=== PATIENT | female | born 1950 | race African-American/Black ===

== ENCOUNTER 2016-12-17 09:42 | Inpatient (IN) | payer MEDICARE, MEDICAID ==
[~2016-12-17] VITALS: Ht 165.1 cm; Wt 88.0 kg
[~2016-12-17 09:42] MED LIST: COZA100T PO; FERR324T4 PO; FLUD.1 PO; FURO20TA PO; GLUC10TA3 PO; INSULIN; ISOP1SOL2 LEFT EYE; LANTUSP SQ; METHO500 PO; NEBI20 PO; NORV5TAB PO; OXYC5 PO; VITA400C58 PO
[2016-12-17 09:43] VITALS: BP 176/88; PULSE 106; RESP 24; TEMP 99; O2SAT 98
[2016-12-17] MEDS ORDERED: AMLO10TA2 PO (09:57)
[2016-12-17] MEDS ORDERED: GLIP10TA6 PO (09:57)
[2016-12-17] MEDS ORDERED: D31000CA (09:57)
[2016-12-17] MEDS ORDERED: OXYC-392 PO (09:58)
[2016-12-17] MEDS ORDERED: SODIUM CHLOR 0.9% 1000 ML INJ 1,000 ML IV ONE (10:15)
[2016-12-17] MEDS ORDERED: RESP: ALBUTEROL 2.5 MG/IPRATROPIUM 0.5 MG NEB (SCH) INH ONE (10:15)
--- NOTE | 2016-12-17 10:28 | PD ---
HPI Chief Complaint: Respiratory Symptoms Time Seen by Provider: 10:08 Travel History International Travel<30 days: No Contact w/Intl Traveler<30days: No Traveled to known affect area: No History of Present Illness HPI Patient is a 66-year-old female who presents to emergency room with multiple complaints. She reports that she has had a nonproductive, dry cough for the past month. patient reports that she hasbeen coughing so much, it takes her breath away. Patient reports shortness of breath with her coughing fits, also reports that she has had a runny nose, postnasal drip. patient reports that she has tried [id number] medications for symptoms with no relief. Patient reports that she felt a little dizzy and nauseous this morning, that she decided to come to the emergency room after she had her breakfast at [employer] which she was able to eat without any difficultly. She does admit that for the past few days, she has been having a sore throat.patient denies any sick contacts, denies any recent travels or trips. Patient denies any chest pain at this time. PFSH Past Medical History Diabetes: Yes Patient Takes Glucophage: No Hypertension: Yes Tetanus Vaccination: > 5 Years Influenza Vaccination: Yes ?: Not Past Surgical History Abdominal Surgery: No Hysterectomy: No Social History Alcohol Use: No Tobacco Use: No Substance Use: No Allergies-Medications (Allergen,Severity, Reaction): Coded Allergies: No Known Allergies (Unverified , 12/17/16) Reported Meds & Prescriptions Reported Meds & Active Scripts Active Reported Oxycodone (Oxycodone HCl) 5 Mg Tab 5 Mg PO Q6H PRN D3 (Cholecalciferol) 1,000 Unit Cap Amlodipine (Amlodipine Besylate) 10 Mg Tab 10 Mg PO DAILY Glipizide 10 Mg Tab 10 Mg PO BIDAC Take 30 minutes before a meal Review of Systems General / Constitutional: Positive: Chills, No: Fever Eyes: No: Visual changes HENT: Positive: Sore Throat, No: Neck Pain Cardiovascular: No: Chest Pain or Discomfort Respiratory: Positive: Cough, Shortness of Breath, No: Wheezing Gastrointestinal: No: Nausea, Vomiting, Diarrhea Genitourinary: No: Dysuria Musculoskeletal: No: Pain Skin: No Rash Neurologic: Positive: Weakness, Dizziness Psychiatric: No: Depression Endocrine: No: Polydipsia Hematologic/Lymphatic: No: Easy Bruising Physical Exam Narrative GENERAL: nontoxic, no acute distress SKIN: Focused skin assessment warm/dry. HEAD: Atraumatic. Normocephalic. EYES: Pupils equal and round. No scleral icterus. No injection or drainage. ENT: No nasal bleeding or discharge. Mucous membranes pink and moist. NECK: Trachea midline. No JVD. CARDIOVASCULAR: Regular rate and rhythm. No murmur appreciated. RESPIRATORY: No accessory muscle use. Clear to auscultation. Breath sounds equal bilaterally. GASTROINTESTINAL: Abdomen soft, non-tender, nondistended. Hepatic and splenic margins not palpable. MUSCULOSKELETAL: No obvious deformities. No clubbing. No cyanosis. No edema. NEUROLOGICAL: Awake and alert. No obvious cranial nerve deficits. Motor grossly within normal limits. Normal speech. PSYCHIATRIC: Appropriate mood and affect; insight and judgment normal. Data Data Last Documented VS Vital Signs Date Time Temp Pulse Resp B/P Pulse Ox O2 Delivery O2 Flow Rate FiO2 12/17/16 10:45 92 16 173/83 97 Room Air 12/17/16 09:43 99.0 Orders Electrocardiogram (12/17/16 10:14) Complete Blood Count With Diff (12/17/16 10:14) Comprehensive Metabolic Panel (12/17/16 10:14) Prothrombin Time / Inr (Pt) (12/17/16 10:14) Act Partial Throm Time (Ptt) (12/17/16 10:14) Lactic Acid Sepsis Protocol (12/17/16 10:14) Magnesium (Mg) (12/17/16 10:14) Urinalysis - C+S If Indicated (12/17/16 10:14) Blood Culture (12/17/16 10:14) Chest, Single Ap (12/17/16 10:14) Sodium Chlor 0.9% 1000 Ml Inj (Ns 1000 M (12/17/16 10:15) Bedside Glucose BHARAT.AC&HS (12/17/16 10:14) Ecg Monitoring (12/17/16 10:14) Iv Access Insert/Monitor (12/17/16 10:14) Oximetry (12/17/16 10:14) Albuterol-Ipratropium Neb (Duoneb Neb) (12/17/16 10:15) Group A Rapid Strep Screen (12/17/16 10:20) Strep Culture (Group A) (12/17/16 10:25) Ceftriaxone Inj (Rocephin Inj) (12/17/16 12:00) Azithromycin Inj (Zithromax Inj) (12/17/16 12:00) Labs Laboratory Tests Test 12/17/16 12/17/16 10:30 10:40 White Blood Count 8.8 TH/MM3 Red Blood Count 4.58 MIL/MM3 Hemoglobin 9.2 GM/DL Hematocrit 30.4 % Mean Corpuscular Volume 66.4 FL Mean Corpuscular Hemoglobin 20.1 PG Mean Corpuscular Hemoglobin 30.2 % Concent Red Cell Distribution Width 16.3 % Platelet Count 223 TH/MM3 Mean Platelet Volume 9.3 FL Neutrophils (%) (Auto) 77.0 % Lymphocytes (%) (Auto) 14.5 % Monocytes (%) (Auto) 7.2 % Eosinophils (%) (Auto) 1.1 % Basophils (%) (Auto) 0.2 % Neutrophils # (Auto) 6.8 TH/MM3 Lymphocytes # (Auto) 1.3 TH/MM3 Monocytes # (Auto) 0.6 TH/MM3 Eosinophils # (Auto) 0.1 TH/MM3 Basophils # (Auto) 0.0 TH/MM3 CBC Comment DIFF FINAL Differential Comment Prothrombin Time 10.3 SEC Prothromb Time International 0.9 RATIO Ratio Activated Partial 26.4 SEC Thromboplast Time Sodium Level 142 MEQ/L Potassium Level 5.5 MEQ/L Chloride Level 113 MEQ/L Carbon Dioxide Level 21.7 MEQ/L Anion Gap 7 MEQ/L Blood Urea Nitrogen 36 MG/DL Creatinine 3.22 MG/DL Estimat Glomerular Filtration 18 ML/MIN Rate Random Glucose 184 MG/DL Lactic Acid Level 1.1 mmol/L Calcium Level 8.1 MG/DL Magnesium Level 2.4 MG/DL Total Bilirubin 0.3 MG/DL Aspartate Amino Transf 20 U/L (AST/SGOT) Alanine Aminotransferase 29 U/L (ALT/SGPT) Alkaline Phosphatase 118 U/L Total Protein 8.1 GM/DL Albumin 3.3 GM/DL Urine Color LIGHT-YELLOW Urine Turbidity CLEAR Urine pH 5.5 Urine Specific [place] 1.011 Urine Protein 30 mg/dL Urine Glucose (UA) NEG mg/dL Urine Ketones NEG mg/dL Urine Occult Blood SMALL Urine Nitrite NEG Urine Bilirubin NEG Urine Urobilinogen LESS THAN 2.0 MG/DL Urine Leukocyte Esterase NEG Urine RBC 1 /hpf Urine WBC LESS THAN 1 /hpf Urine Squamous Epithelial 1 /hpf Cells Microscopic Urinalysis Comment CULT NOT INDICATED MDM Medical Decision Making Medical Screen Exam Complete: Yes Emergency Medical Condition: Yes Interpretation(s) Vital Signs Date Time Temp Pulse Resp B/P Pulse Ox O2 Delivery O2 Flow Rate FiO2 12/17/16 09:59 90 15 97 Room Air 12/17/16 09:43 99.0 106 24 176/88 98 Room Air Differential Diagnosis Viral syndrome, pneumonia, electrolyte abnormality, pneumothorax, PE though unlikely Narrative Course Patient is a 66-year-old female who presents to emergency room with complaints of shortness of breath with cough, congestion and runny nose for the past month. Patient has tried using [id number] medications with no relief of symptoms. Patient with no fevers or chills, she was tachycardic with increased respiratory rate upon arrival to the emergency room. Patient does meet SIRS criteria, sepsis labs were drawn. IVF ordered. Patient does not have any abdominal pain this time, not have any sensation of throat closing, she complains of sore throat. Lab work drawn including LFTs. Will hydrate patient and monitor youth nutritional monitor. Laboratory Tests Test 12/17/16 12/17/16 10:30 10:40 White Blood Count 8.8 TH/MM3 (4.0-11.0) Red Blood Count 4.58 MIL/MM3 (4.00-5.30) Hemoglobin 9.2 GM/DL (11.6-15.3) Hematocrit 30.4 % (35.0-46.0) Mean Corpuscular Volume 66.4 FL (80.0-100.0) Mean Corpuscular Hemoglobin 20.1 PG (27.0-34.0) Mean Corpuscular Hemoglobin 30.2 % Concent (32.0-36.0) Red Cell Distribution Width 16.3 % (11.6-17.2) Platelet Count 223 TH/MM3 (150-450) Mean Platelet Volume 9.3 FL (7.0-11.0) Neutrophils (%) (Auto) 77.0 % (16.0-70.0) Lymphocytes (%) (Auto) 14.5 % (9.0-44.0) Monocytes (%) (Auto) 7.2 % (0.0-8.0) Eosinophils (%) (Auto) 1.1 % (0.0-4.0) Basophils (%) (Auto) 0.2 % (0.0-2.0) Neutrophils # (Auto) 6.8 TH/MM3 (1.8-7.7) Lymphocytes # (Auto) 1.3 TH/MM3 (1.0-4.8) Monocytes # (Auto) 0.6 TH/MM3 (0-0.9) Eosinophils # (Auto) 0.1 TH/MM3 (0-0.4) Basophils # (Auto) 0.0 TH/MM3 (0-0.2) CBC Comment DIFF FINAL Differential Comment Prothrombin Time 10.3 SEC (9.8-11.6) Prothromb Time International 0.9 RATIO Ratio Activated Partial 26.4 SEC Thromboplast Time (24.3-30.1) Sodium Level 142 MEQ/L (136-145) Potassium Level 5.5 MEQ/L (3.5-5.1) Chloride Level 113 MEQ/L (98-107) Carbon Dioxide Level 21.7 MEQ/L (21.0-32.0) Anion Gap 7 MEQ/L (5-15) Blood Urea Nitrogen 36 MG/DL (7-18) Creatinine 3.22 MG/DL (0.50-1.00) Estimat Glomerular Filtration 18 ML/MIN (>89) Rate Random Glucose 184 MG/DL (74-106) Lactic Acid Level 1.1 mmol/L (0.4-2.0) Calcium Level 8.1 MG/DL (8.5-10.1) Magnesium Level 2.4 MG/DL (1.5-2.5) Total Bilirubin 0.3 MG/DL (0.2-1.0) Aspartate Amino Transf 20 U/L (15-37) (AST/SGOT) Alanine Aminotransferase 29 U/L (10-53) (ALT/SGPT) Alkaline Phosphatase 118 U/L (45-117) Total Protein 8.1 GM/DL (6.4-8.2) Albumin 3.3 GM/DL (3.4-5.0) Urine Color LIGHT-YELLOW (YELLW/STRAW) Urine Turbidity CLEAR (CLEAR) Urine pH 5.5 (5.0-8.5) Urine Specific [place] 1.011 (1.002-1.035) Urine Protein 30 mg/dL (NEG-TRACE) Urine Glucose (UA) NEG mg/dL (NEG) Urine Ketones NEG mg/dL (NEG) Urine Occult Blood SMALL (NEG) Urine Nitrite NEG (NEG) Urine Bilirubin NEG (NEG) Urine Urobilinogen LESS THAN 2.0 MG/DL (LESS THAN 2.0) Urine Leukocyte Esterase NEG (NEG) Urine RBC 1 /hpf (0-3) Urine WBC LESS THAN 1 /hpf (0-5) Urine Squamous Epithelial 1 /hpf (0-5) Cells Microscopic Urinalysis Comment CULT NOT INDICATED Last Impressions Chest X-Ray 12/17/16 1014 Signed Impressions: Service Date/Time: Saturday, December 17, 2016 10:58 - CONCLUSION: No acute disease. Elio Phillips MD FACR Cr 3.12 which is elevated from baseline, last cr was from 2012 and was 1.49 patient with most likely bronchitis with dry cough for 1 month - will treat with antibiotics Diagnosis Primary Impression: Renal insufficiency Additional Impression: Bronchitis Admitting Information Admitting Physician Requests: Observation Fatmata Ewing DO December 17, 2016 10:27
[2016-12-17 10:45] VITALS: BP 173/83; PULSE 92; RESP 16; O2SAT 97
[2016-12-17 11:04] LABS: AUTOMATED NEUTROPHIL # 6.8 TH/MM3 (1.8-7.7); BASOPHIL % 0.2 % (0.0-2.0); EOSINOPHIL # 0.1 TH/MM3 (0-0.4); EOSINOPHIL % 1.1 % (0.0-4.0); HEMATOCRIT 30.4 % (35.0-46.0); HEMO FLAGS DIFF FINAL; LYMPH % 14.5 % (9.0-44.0); LYMPHOCYTE # 1.3 TH/MM3 (1.0-4.8); MEAN CELL VOLUME 66.4 FL (80.0-100.0); MEAN CORPUSCULAR HEMOGLOBIN 20.1 PG (27.0-34.0); MEAN CORPUSCULAR HGB CONC 30.2 % (32.0-36.0); MONO % 7.2 % (0.0-8.0); PLATELET COUNT 223 TH/MM3 (150-450); RED BLOOD COUNT 4.58 MIL/MM3 (4.00-5.30); RED CELL DISTRIBUTION WIDTH 16.3 % (11.6-17.2); WHITE BLOOD COUNT 8.8 TH/MM3 (4.0-11.0)
[2016-12-17 11:13] LABS: APTT (PATIENT) 26.4 SEC (24.3-30.1); INTERNATIONAL NORMALIZED RATIO 0.9 RATIO; PROTHROMBIN TIME - PATIENT 10.3 SEC (9.8-11.6)
[2016-12-17 11:17] LABS: ANION GAP 7 MEQ/L (5-15); BICARBONATE 21.7 MEQ/L (21.0-32.0); BLOOD UREA NITROGEN 36 MG/DL (7-18); CHLORIDE 113 MEQ/L (98-107); MAGNESIUM 2.4 MG/DL (1.5-2.5); POTASSIUM 5.5 MEQ/L (3.5-5.1); SODIUM (NA) 142 MEQ/L (136-145)
[2016-12-17 11:30] LABS: ALKALINE PHOSPHATASE 118 U/L (45-117); AST (GOT) 20 U/L (15-37); GLOMERULAR FILTRATION RATE 18 ML/MIN (>89); TOTAL BILIRUBIN ADULT 0.3 MG/DL (0.2-1.0)
[2016-12-17 11:33] LABS: ALT (GPT) 29 U/L (10-53)
--- NOTE | 2016-12-17 11:35 | RADRPT ---
EXAM DATE/TIME: 12/17/2016 10:58 [facility] COMPARISON: No previous studies available for comparison. INDICATIONS : Short of breath, cough. MEDICAL HISTORY : None. SURGICAL HISTORY : None. ENCOUNTER: Initial ACUITY: 1 month PAIN SCORE: 0/10 LOCATION: Bilateral chest FINDINGS: A single view of the chest demonstrates the lungs to be symmetrically aerated without evidence of mas s, infiltrate or effusion. The cardiomediastinal contours are unremarkable. Osseous structures are intact. CONCLUSION: No acute disease. Elio Phillips MD FACR on December 17, 2016 at 11:33 Board Certified Radiologist. This report was verified electronically.
[2016-12-17 11:41] LABS: BLOOD, URINE SMALL (NEG); COMMENT (UR) CULT NOT INDICATED; CULTURE IF INDICATED CULT NOT INDICATED; GLUCOSE,URINE NEG (NEG); KETONE, URINE NEG (NEG); NITRITE,URINE NEG (NEG); PH, URINE 5.5 (5.0-8.5); SQUAMOUS EPITHELIAL CELL URINE 1 /hpf (0-5); URINE COLOR LIGHT-YELLOW (YELLW/STRAW)
[2016-12-17] MEDS ORDERED: AZITHROMYCIN INJ 500 MG in SODIUM CHLOR 0.9% 250 ML INJ 250 ML IV ONE (12:00)
[2016-12-17] MEDS ORDERED: cefTRIAXone INJ 1,000 MG in SODIUM CHLORIDE 0.9% INJ 100 ML IV ONE (12:00)
[2016-12-17] MEDS ORDERED: BISACODYL 10 MG SUPP RECTAL PRN (12:45)
[2016-12-17] MEDS ORDERED: SENNOSIDES 8.6 MG TAB PO PRN (12:45)
[2016-12-17] MEDS ORDERED: SODIUM CHLORIDE 0.9% FLUSH 10 ML FLUSH IV FLUSH PRN (12:45)
[2016-12-17] MEDS ORDERED: ONDANSETRON HCL 4 MG/2 ML VIAL IVP PRN (12:45)
[2016-12-17] MEDS ORDERED: LACTULOSE SYRUP 20 GM/30 ML CUP PO PRN (12:45)
[2016-12-17] MEDS ORDERED: NALOXONE HCL 0.4 MG/ML AMP IV PRN (12:45)
--- NOTE | 2016-12-17 13:35 | HHI.HP ---
[facility] Service [place] [facility] Primary Care Physician No Primary Care Physician Admission Diagnosis Acute kidney Injury, Bronchitis Diagnoses: Chief Complaint: cough, fatigue Travel History International Travel<30 Days: No Contact w/Intl Traveler <30 Da: No Traveled to Known Affected Are: No History of Present Illness Written by KO Caruso acting as scribe for Dr. Nixon] on 12/17/16 at 13 :24. 66 y/o female with a history of HTN, chronic anemia, chronic pain, and DM presented to the ED with complaints of a dry non productive cough that started 1 month ago. She states she got up this morning and she felt weak and dizzy. She had some nausea this morning with no vomiting. Off and on diarrhea for the last few days. For the last month she has been taking Mucinex D with no relief. No new medications over the last 2 months. Grand-daughter was sick with strep throat but no one else. Able to eat but states when she drinks she starts to cough. Chills but no fevers. 800mg of Ibuprofen taken yesterday, she ran out of pain medications on Thursday so she took NSAIDs due to the chronic pain. Denies any chest pain, or sob. Denies any chronic kidney disease. Review of Systems Constitutional: COMPLAINS OF: Fatigue, DENIES: Fever, Chills, Dizziness Respiratory: COMPLAINS OF: Cough, DENIES: Sputum production, Shortness of breath Cardiovascular: DENIES: Chest pain, Lower Extremity Edema Gastrointestinal: COMPLAINS OF: Nausea, DENIES: Constipation, Diarrhea, Vomiting Genitourinary: DENIES: Hematuria, Dysuria Musculoskeletal: COMPLAINS OF: Back pain (chronic) Integumentary: DENIES: Rash Neurologic: DENIES: Headache Past Family Social History Past Medical History HTN DM Anemia Chronic pain Past Surgical History eye implants Reported Medications Reported Meds & Active Scripts Active Reported Oxycodone (Oxycodone HCl) 5 Mg Tab 5 Mg PO Q6H PRN D3 (Cholecalciferol) 1,000 Unit Cap Amlodipine (Amlodipine Besylate) 10 Mg Tab 10 Mg PO DAILY Glipizide 10 Mg Tab 10 Mg PO BIDAC Take 30 minutes before a meal Allergies: Coded Allergies: No Known Allergies (Unverified , 12/17/16) Active Ordered Medications Current Medications Medications (Trade) Dose Ordered Sig/Lo Route Start Time Stop Time Status Last Admin (NS 1000 ml Inj) 1,000 ml @ 100 mls/hr Q10H IV 12/17/16 13:00 (NS Flush) 2 ml UNSCH PRN IV FLUSH 12/17/16 12:45 (NS Flush) 2 ml BID IV FLUSH 12/17/16 21:00 (Zofran Inj) 4 mg Q6H PRN IVP 12/17/16 12:45 (Narcan Inj) 0.4 mg UNSCH PRN IV 12/17/16 12:45 (Terese-Colace) 1 tab BID PO 12/17/16 21:00 (Milk Of Magnesia Liq) 30 ml Q12H PRN PO 12/17/16 12:45 (Senokot) 17.2 mg Q12H PRN PO 12/17/16 12:45 (Dulcolax Supp) 10 mg DAILY PRN RECTAL 12/17/16 12:45 (Lactulose Liq) 30 ml DAILY PRN PO 12/17/16 12:45 (Norvasc) 10 mg DAILY PO 12/18/16 09:00 Family History Mom: Dm, heart disease, cva Dad: lung cancer Social History Tobacco use: Denies Alcohol use: Denies Illicit drug use: Denies Physical Exam Vital Signs Vital Signs Date Time Temp Pulse Resp B/P Pulse Ox O2 Delivery O2 Flow Rate FiO2 12/17/16 10:45 92 16 173/83 97 Room Air 12/17/16 09:59 90 15 97 Room Air 12/17/16 09:43 99.0 106 24 176/88 98 Room Air Physical Exam GENERAL: This is a well-nourished, well-developed patient, in no apparent distress. SKIN: No rashes, ecchymoses or lesions. Cool and dry. HEAD: Atraumatic. Normocephalic. No temporal or scalp tenderness. EYES: Pupils equal round and reactive. Extraocular motions intact. No scleral icterus. No injection or drainage. ENT: Nose without bleeding, purulent drainage or septal hematoma. Throat without erythema, tonsillar hypertrophy or exudate. Uvula midline. Airway patent. NECK: Trachea midline. No JVD or lymphadenopathy. Supple, nontender, no meningeal signs. CARDIOVASCULAR: Regular rate and rhythm without murmurs, gallops, or rubs. RESPIRATORY: Clear to auscultation. Breath sounds equal bilaterally. No wheezes , rales, or rhonchi. GASTROINTESTINAL: Abdomen soft, non-tender, nondistended. No hepato-splenomegaly , or palpable masses. No guarding. MUSCULOSKELETAL: Extremities without clubbing, cyanosis, or edema. No joint tenderness, effusion, or edema noted. No calf tenderness. Negative Homans sign bilaterally. NEUROLOGICAL: Awake and alert. Cranial nerves II through XII intact. Motor and sensory grossly within normal limits. Five out of 5 muscle strength in all muscle groups. Normal speech. Laboratory Laboratory Tests Test 12/17/16 12/17/16 10:30 10:40 White Blood Count 8.8 Red Blood Count 4.58 Hemoglobin 9.2 Hematocrit 30.4 Mean Corpuscular Volume 66.4 Mean Corpuscular Hemoglobin 20.1 Mean Corpuscular Hemoglobin 30.2 Concent Red Cell Distribution Width 16.3 Platelet Count 223 Mean Platelet Volume 9.3 Neutrophils (%) (Auto) 77.0 Lymphocytes (%) (Auto) 14.5 Monocytes (%) (Auto) 7.2 Eosinophils (%) (Auto) 1.1 Basophils (%) (Auto) 0.2 Neutrophils # (Auto) 6.8 Lymphocytes # (Auto) 1.3 Monocytes # (Auto) 0.6 Eosinophils # (Auto) 0.1 Basophils # (Auto) 0.0 CBC Comment DIFF FINAL Differential Comment Prothrombin Time 10.3 Prothromb Time International 0.9 Ratio Activated Partial 26.4 Thromboplast Time Sodium Level 142 Potassium Level 5.5 Chloride Level 113 Carbon Dioxide Level 21.7 Anion Gap 7 Blood Urea Nitrogen 36 Creatinine 3.22 Estimat Glomerular Filtration 18 Rate Random Glucose 184 Lactic Acid Level 1.1 Calcium Level 8.1 Magnesium Level 2.4 Total Bilirubin 0.3 Aspartate Amino Transf 20 (AST/SGOT) Alanine Aminotransferase 29 (ALT/SGPT) Alkaline Phosphatase 118 Total Protein 8.1 Albumin 3.3 Urine Color LIGHT-YELLOW Urine Turbidity CLEAR Urine pH 5.5 Urine Specific [place] 1.011 Urine Protein 30 Urine Glucose (UA) NEG Urine Ketones NEG Urine Occult Blood SMALL Urine Nitrite NEG Urine Bilirubin NEG Urine Urobilinogen LESS THAN 2.0 Urine Leukocyte Esterase NEG Urine RBC 1 Urine WBC LESS THAN 1 Urine Squamous Epithelial 1 Cells Microscopic Urinalysis Comment CULT NOT INDICATED Date/Time Procedure Status Source Growth 12/17/16 10:50 Aerobic Blood Culture Received Blood Peripheral Pending 12/17/16 10:50 Anaerobic Blood Culture Received Blood Peripheral Pending 12/17/16 10:25 Group A Streptococcus Screen (THEE) - Final Complete Throat 12/17/16 10:25 Group A Streptococcus Screen Received Throat Pending Result Diagram: 12/17/16 1030 12/17/16 1030 Assessment and Plan Problem List: (1) Bronchitis ICD Code: J40 Status: Acute (2) Acute kidney failure ICD Code: N17.9 Status: Acute Assessment and Plan 66 y/o female with a history of HTN, chronic anemia, chronic pain, and DM presented to the ED with complaints of a dry non productive cough that started 1 month ago. She states she got up this morning and she felt weak and dizzy. She had some nausea this morning with no vomiting. Off and on diarrhea for the last few days. //Possible sepsis. Tachycardia, tachypnea. Bronchitis. //Bronchitis, cough for the last month, no leukocytosis Strep negative Chest xray unremarkable -Antibiotics. - Tessalon pearls //Acute kidney failure, creatine 3.2, unknown baseline, patient denies any kidney disease -Consult nephrology -Renal US ordered -Urine NA and creatine ordered -IVF hydration //Chronic pain -Cont home oxycodone //DM, chronic -Accu checks AC/HS -Diabetic diet //Hypokalemia. Mild. Fluids. Follow-up. DVT prophylaxis: SCDs Code Status Full Discussed Condition With Patient, RN and ED physician Physician Certification 2 Midnight Certification Type: Admission for Inpatient Services Order for Inpatient Services The services are ordered in accordance with Medicare regulations or non- Medicare payer requirements, as applicable. In the case of services not specified as inpatient-only, they are appropriately provided as inpatient services in accordance with the 2-midnight benchmark. Estimated LOS (days): 2 days is the estimated time the patient will need to remain in the hospital, assuming treatment plan goals are met and no additional complications. Post-Hospital Plan: Home Notes: This note was transcribed by scribe [KO Caruso]. I, Dr. Norris Castillo personally performed the history, physical exam, and medical decision making; and confirmed the accuracy of the information in the transcribed note. Authenticated by Dr. Norris Castillo on 12/17/16 at 19:45. Kortney Brand December 17, 2016 13:35 Norris Castillo MD December 17, 2016 19:49
[2016-12-17] MEDS: SODIUM CHLOR 0.9% 1000 ML INJ 1,000 ML IV SCH (14:06)
[2016-12-17 14:12] VITALS: BP 177/83; PULSE 103; RESP 16; O2SAT 94
[2016-12-17 15:20] VITALS: BP 195/103; PULSE 110; RESP 18; TEMP 98.9; O2SAT 93
[2016-12-17] MEDS: INSULIN ASPART SUPPLEMENTAL SCALE SQ SCH ×2 (16:00→23:00)
--- NOTE | 2016-12-17 18:44 | RADRPT ---
EXAM DATE/TIME: 12/17/2016 13:21 [facility] COMPARISON: No previous studies available for comparison. INDICATIONS : Abnormal labs. MEDICAL HISTORY : Hypertension. Diabetes. Cough. SURGICAL HISTORY : None. ENCOUNTER: Initial ACUITY: 1 day PAIN SCORE: 3/10 LOCATION: Bilateral flank MEASUREMENTS: RIGHT KIDNEY: 8.6 x 4.6 x 5.2 cm LEFT KIDNEY: 9.0 x 5.8 x 5.1 cm FINDINGS: RIGHT KIDNEY: There is cortical thinning and the kidney is diffusely echogenic. No mass or hydronephrosis. LEFT KIDNEY: There is cortical thinning and the kidney is diffusely echogenic. No mass or hydronephrosis. BLADDER: Within normal limits given the degree of distension. CONCLUSION: 1. Sonographic findings consistent with medical renal disease. No obstruction. Kolby Hughes Jr., MD on December 17, 2016 at 18:41 Board Certified Radiologist. This report was verified electronically.
[2016-12-17 19:55] VITALS: BP 149/77
--- NOTE | 2016-12-17 19:58 | MB ---
cc: AURORA GORDON MD DATE OF CONSULTATION: 12/17/2016 REASON FOR CONSULTATION Elevated BUN and creatinine and hyperkalemia, for evaluation. HISTORY OF PRESENT ILLNESS This is a 66-year-old female with a past medical history of hypertension, diabetes mellitus, chronic anemia, history of back pain and chronic kidney disease, came to the hospital with complaint of nausea, vomiting, diarrhea and back pain. I was called to see the patient with a high BUN and creatinine. The patient was found to have BUN of 36 and creatinine of 3.2. Previously she has a creatinine of 1.6 and BUN of 32, this was in 2012. The patient was told that she has a history of chronic kidney disease but she has not seen any parachute folder. Currently her primary, Dr. Carter, has retired so she is looking for a primary physician. Also, for the last four or five days she has constipation and she took some laxative and started having diarrhea for the last two or three days associated with nausea, decreased oral intake and she has vomited twice today and still feels nauseated. She has no abdominal pain but she has chronic back pain going down to her legs and she was taking ibuprofen and she took four of them on Thursday which was three days ago. She denies any dysuria or hematuria, did not notice any decrease in the urine output. She has a history of diabetic retinopathy and had laser treatment and clinically she has neuropathy. PAST MEDICAL HISTORY 1. Hypertension. 2. Diabetes mellitus. 3. Chronic kidney disease. 4. Anemia. 5. Chronic back pain. PAST SURGICAL HISTORY History of laser treatment in the eye and also has eye implant. REVIEW OF SYSTEMS The patient denies any history of fever. She has generalized weakness, feeling tired, has nausea, vomited twice today, has loose bowel motion, mild abdominal discomfort, shortness of breath and cough which is mainly dry. There is no chest pain, no palpitation, no dysuria or hematuria. She took this ibuprofen for pain a total of 800 mg on Thursday. SOCIAL HISTORY There is no history of smoking or alcoholism. FAMILY HISTORY Positive for diabetes, heart disease and stroke from mother and lung cancer from father's side. ALLERGIES SHE HAS NO KNOWN DRUG ALLERGIES. MEDICATIONS Currently she is on - 1. Normal saline 100/hr. 2. Amlodipine 10 mg once a day. 3. Insulin aspart sliding scale. 4. Zofran as needed. 5. Milk of magnesia as needed. 6. She received one dose Ceftriaxone and Azithromycin. PHYSICAL EXAMINATION GENERAL: On examination the patient is awake, alert, she is not in acute distress. VITAL SIGNS: Her last blood pressure is 195/103, temperature is 98.9, oxygen saturation is 93-94% on 4 liters nasal cannula. HEAD, EYES, EARS, NOSE AND THROAT: Pupils equally reacting to light. Nonicteric sclerae. Conjunctivae are pale. NECK: Supple. JVD is not elevated. LUNGS: The patient has bilateral decreased air entry with occasional wheezing. HEART: S1, S2. Regular rhythm. ABDOMEN: Abdomen is distended, soft lax. There is no tenderness. Bowel sounds positive. EXTREMITIES: There is no edema in the legs. INVESTIGATION WBC count is 8.8, hemoglobin 9.2, platelet count of 223, neutrophils 77. Sodium 142, potassium 5.5, chloride 113, bicarb 21.7, BUN 36, creatinine 3.2, glucose 184, calcium 8.1, AST/ALT normal, alkaline phosphatase 118, albumin is 3.3. INR is 0.9. Urinalysis showing that there is protein of 30, urine sodium was 83 and creatinine was 92.7. Blood cultures pending. IMAGING STUDIES The patient had a chest x-ray done which shows lung ewing are clear. Ultrasound of the kidneys was done, the report is not available yet. ASSESSMENT 1. Chronic kidney disease with acute kidney injury. 2. Hyperkalemia. 3. Acute bronchitis. 4. Hypertension. 5. Diabetes mellitus. 6. Vomiting, diarrhea and some dehydration. 7. Anemia. The patient has a history of chronic kidney disease and has mild proteinuria. Most likely the patient has diabetic nephropathy and have also noted some acute worsening. We do not have any creatinine from 2013 until now and it has increased from 1.6 to 3.2. There could be some acute worsening because of the dehydration or possibility of nonsteroidal anti-inflammatory drug related. At present I agree with continuing the IV fluid and the antibiotics. Avoid any nephrotoxins. Follow the urine output and the BUN and creatinine. I will send ANJANA, ANCA and serum protein electrophoresis to look for other cause for renal failure. Thank you for the consultation. I will follow the patient while she is in the hospital. MD CYNTHIA Bunn/BJF /4:42 PM /7:23 PM
[2016-12-17 20:00] VITALS: BP 175/96; PULSE 111; RESP 20; TEMP 100.6; O2SAT 96
[2016-12-17] MEDS: BENZONATATE 100 MG CAP PO PRN (20:41)
[2016-12-17] MEDS: DOCUSATE SODIUM 50 MG/SENNA 8.6 MG TAB PO SCH (20:41)
[2016-12-17] MEDS: SODIUM CHLORIDE 0.9% FLUSH 10 ML FLUSH IV FLUSH SCH (20:41)
[2016-12-17] MEDS ORDERED: SODIUM POLYSTYRENE SULFONATE SUSP 15 GM/60 ML CUP PO ONE (22:00)
[2016-12-18] VITALS (9 sets, daily range): BP systolic 115–154; BP diastolic 60–81; PULSE 94–115; RESP 18–20; TEMP 96.8–102.2; O2SAT 96–100
[2016-12-18] MEDS: SODIUM CHLOR 0.9% 1000 ML INJ 1,000 ML IV SCH ×2 (01:18→21:32)
[2016-12-18] MEDS: cefTRIAXone INJ 2,000 MG in SODIUM CHLORIDE 0.9% INJ 100 ML IV SCH ×2 (01:43→13:10)
[2016-12-18] MEDS: ACETAMINOPHEN 325 MG TAB PO PRN ×2 (01:43→18:41)
[2016-12-18] MEDS: INSULIN ASPART SUPPLEMENTAL SCALE SQ SCH ×4 (06:43→23:35)
--- NOTE | 2016-12-18 08:04 | EKG ---
Date Performed: 12/17/2016 Time Performed: 16:05:55 PTAGE: 66 years EKG: SINUS TACHYCARDIA LEFT BUNDLE BRANCH BLOCK ABNORMAL ECG PREVIOUS TRACING : 12/17/2016 10.54 Compared to prior tracing no significant change DOCTOR: Chin Hernandez Interpretating Date/Time 12/18/2016 08:03:30
[2016-12-18 08:12] LABS: AUTOMATED NEUTROPHIL # 6.8 TH/MM3 (1.8-7.7); BASOPHIL % 0.3 % (0.0-2.0); EOSINOPHIL # 0.1 TH/MM3 (0-0.4); EOSINOPHIL % 0.7 % (0.0-4.0); HEMATOCRIT 28.7 % (35.0-46.0); HEMO FLAGS DIFF FINAL; LYMPH % 22.7 % (9.0-44.0); LYMPHOCYTE # 2.3 TH/MM3 (1.0-4.8); MEAN CELL VOLUME 67.2 FL (80.0-100.0); MEAN CORPUSCULAR HEMOGLOBIN 20.2 PG (27.0-34.0); MONO % 9.2 % (0.0-8.0); NEUT % 67.1 % (16.0-70.0); PLATELET COUNT 216 TH/MM3 (150-450); RED BLOOD COUNT 4.27 MIL/MM3 (4.00-5.30); WHITE BLOOD COUNT 10.2 TH/MM3 (4.0-11.0)
[2016-12-18 08:35] LABS: ALT (GPT) 23 U/L (10-53); ANION GAP 8 MEQ/L (5-15); AST (GOT) 14 U/L (15-37); BLOOD UREA NITROGEN 32 MG/DL (7-18); CHLORIDE 113 MEQ/L (98-107); GLOMERULAR FILTRATION RATE 19 ML/MIN (>89); POTASSIUM 4.7 MEQ/L (3.5-5.1); SODIUM (NA) 145 MEQ/L (136-145); TRANSFERRIN IRON PROFILE 156 MG/DL (200-360)
[2016-12-18 08:38] LABS: ALKALINE PHOSPHATASE 99 U/L (45-117); FERRITIN 387 NG/ML (8-252); TOTAL BILIRUBIN ADULT 0.3 MG/DL (0.2-1.0); TOTAL PROTEIN SPE 7.5 GM/DL (6.0-7.6)
[2016-12-18] MEDS: SODIUM CHLORIDE 0.9% FLUSH 10 ML FLUSH IV FLUSH SCH ×2 (09:00→21:00)
[2016-12-18] MEDS: BENZONATATE 100 MG CAP PO PRN ×3 (09:38→23:37)
[2016-12-18] MEDS: DOCUSATE SODIUM 50 MG/SENNA 8.6 MG TAB PO SCH ×2 (09:40→21:00)
--- NOTE | 2016-12-18 10:35 | HHI.NPPN ---
Subjective History of Present Illness 66-year-old female with a past medical history of hypertension, diabetes mellitus, chronic anemia, history of back pain and chronic kidney disease, came to the hospital with complaint of nausea, vomiting, diarrhea and back pain. I was called to see the patient with a high BUN and creatinine. The patient was found to have BUN of 36 and creatinine of 3.2. Additional Remarks Patient is alert, with nasal cannula, mild SOB and cough. Review of Systems General Constitutional: Fatigue Respiratory Lungs: SOB, Cough, Sputum, Wheeze Cardiovascular Cardiac: BARBOUR Objective Data Data 12/17/16 12/18/16 19:00 07:00 Output Total 525 ml Balance -525 ml Output Urine Total 525 ml # Voids 2 # Bowel Movements 0 Vital Signs Date Time Temp Pulse Resp B/P Pulse Ox O2 Delivery O2 Flow Rate FiO2 12/18/16 09:08 99.1 112 18 154/71 97 12/18/16 04:00 96.8 97 20 140/65 98 12/18/16 03:00 98.8 12/18/16 00:00 102.2 112 20 146/81 96 12/17/16 20:00 100.6 111 20 175/96 96 12/17/16 19:55 98 16 149/77 95 Nasal Cannula 2 12/17/16 15:20 98.9 110 18 195/103 93 Nasal Cannula 4 12/17/16 14:12 103 16 177/83 94 Room Air 12/17/16 10:45 92 16 173/83 97 Room Air -: 12/18/16 0719 12/18/16 0719 Microbiology 12/17/16 Aerobic Blood Culture, Received Pending 12/17/16 Anaerobic Blood Culture, Received Pending Physical Exam General Appearance: No Acute Distress, Comfortable Eyes Eye Exam: Pupils Equal Throat Throat Exam: Oral Mucosa [place] & Moist Neck Neck Exam: Neck Supple Pulmonary Resp Exam: Crackles, Rhonchi, Sputum, Decreased Bases, Diminished Breath Sounds Cardiology CV Exam: Regular, Normal Sinus Rhythm Gastrointestinal/Abdomen GI Exam: Soft, Non-Tender, Bowel Sounds Present, Distended Extremeties Extremities Exam: No Edema Neurologic Neuro Exam: Alert, Awake, Oriented Psychiatric Psych Exam: Appropriate Responses Assessment/Plan Assessment Summary: GRADY/Acute Renal Failure, Anemia of CKD, CHF, CKD Stage IV Problem List: (1) Bronchitis (2) Anemia (3) Stage 4 chronic kidney disease (4) Acute kidney failure Plan Patient has some improvement in the Creatinine. Most likely has advance chronic kidney disease due to Hypertensive and/or Diabetic Nephropathy. Continue gentle hydration and antibiotics. Getting Echo now. Give iron supplement and Epogen one dose for anemia. Svitlana Cook MD Dec 18, 2016 10:34
[2016-12-18] MEDS: AZITHROMYCIN INJ 500 MG in SODIUM CHLOR 0.9% 250 ML INJ 250 ML IV SCH (10:48)
--- NOTE | 2016-12-18 11:10 | EC ---
Study Study Date:12/18/2016 STUDY CONCLUSIONS SUMMARY - Left ventricle: The cavity size was dilated. Wall thickness was normal. Systolic function was severely reduced by visual assessment. The estimated ejection fraction was in the range of 30% to 35%. Diffuse hypokinesis. - Mitral valve: Mild regurgitation. If LV function is below 40, please consider prescribing an ACEI or ARB or document rationale for non-use. PROCEDURE DATA STUDY STATUS: Elective. Procedure: Transthoracic echocardiography. Image quality was good. Scanning was performed from the parasternal, apical, and subcostal acoustic windows. Study completion: The patient tolerated the procedure well. Transthoracic echocardiography. M-mode, complete 2D, complete spectral Doppler, and color Doppler. Patient status: Inpatient. CARDIAC ANATOMY LEFT VENTRICLE: The cavity size was dilated. Wall thickness was normal. Systolic function was severely reduced by visual assessment. The estimated ejection fraction was in the range of 30% to 35%. Diffuse hypokinesis. AORTIC VALVE: Trileaflet; normal thickness leaflets. Doppler: Transvalvular velocity was within the normal range. There was no stenosis. No regurgitation. AORTA: Aortic root: The aortic root was normal in size. MITRAL VALVE: Structurally normal valve. Doppler: Transvalvular velocity was within the normal range. There was no evidence for stenosis. Mild regurgitation. Valve area by pressure half-time: 3.24cm^2. Mean gradient: 3mm Hg (D). Peak gradient: 8mm Hg (D). LEFT ATRIUM: The atrium was normal in size. RIGHT VENTRICLE: The cavity size was normal. Wall thickness was normal. PULMONIC VALVE: Doppler: Transvalvular velocity was within the normal range. There was no evidence for stenosis. No regurgitation. TRICUSPID VALVE: Structurally normal valve. Doppler: Transvalvular velocity was within the normal range. No regurgitation. PULMONARY ARTERY: The main pulmonary artery was normal-sized. Systolic pressure was within the normal range. RIGHT ATRIUM: The atrium was normal in size. PERICARDIUM: There was no pericardial effusion. SYSTEMIC VEINS: Inferior vena cava: The vessel was normal in size. BASIC MEASUREMENTS ADULT Normal Left ventricle LV internal dimension, ED, chordal level, 44.8 mm 43-52 PLAX LV internal dimension, ES, chordal level, *40.3 mm 23-38 PLAX Fractional shortening, chordal level, PLAX *10 % >29 LV posterior wall thickness, ED 6.83 mm IVS/LVPW ratio, ED 1.2 <1.3 Ventricular septum Septal thickness, ED 8.18 mm Aortic valve Leaflet separation 19 mm 15-26 Left atrium Anterior-posterior dimension 34 mm Right ventricle RV internal dimension, ED, PLAX *18.6 mm 19-38 BASIC MEASUREMENTS ADULT Normal Aortic valve Leaflet separation 19 mm 15-26 Aorta Root diameter, ED 28 mm 20-37 DOPPLER MEASUREMENTS ADULT Normal Aortic valve VTI, S 38.2 cm Mitral valve Peak E-wave velocity 116 cm/s Peak A-wave velocity 34.3 cm/s Mean velocity, D 73.5 cm/s Pressure half-time 68 ms Mean gradient, D 3 mm Hg Peak gradient, D 8 mm Hg Peak E/A ratio 3.4 Valve area, pressure half-time 3.24 cm^2 Tricuspid valve Regurgitant peak velocity 103 cm/s Peak RV-RA gradient, S 4 mm Hg Maximal regurgitant velocity 103 cm/s LEGEND: Mean values are shown as u=mean value. Asterisk (*) bautista values outside specified normal range. Prepared and signed by Jatinder Cordero [id number]
[2016-12-18] MEDS ORDERED: EPOETIN ALFA 20,000 UNITS/ML VIAL SQ ONE (11:15)
--- NOTE | 2016-12-18 12:06 | EKG ---
Date Performed: 12/17/2016 Time Performed: 10:54:43 PTAGE: 66 years EKG: PROBABLE Sinus rhythm LEFT BUNDLE BRANCH BLOCK ABNORMAL ECG NO PREVIOUS TRACING DOCTOR: Chin Hernandez Interpretating Date/Time 12/18/2016 12:05:04
[2016-12-18] MEDS: FERROUS SULFATE 325 MG (65 MG ELEMENTAL IRON) TAB PO SCH ×2 (12:55→21:32)
[2016-12-18] MEDS ORDERED: CARVEDILOL 3.125 MG TAB PO ONE (13:45)
[2016-12-18] MEDS ORDERED: RESP: IPRATROPIUM 0.5 MG/2.5 ML NEB NEB PRN (14:15)
[2016-12-18 16:50] LABS: CREATINE KINASE 230 U/L (26-192)
[2016-12-18 17:17] LABS: CKMB LESS THAN 0.5 NG/ML (0.5-3.6)
--- NOTE | 2016-12-18 18:32 | MB ---
cc: YOUSIF POP MD DATE OF CONSULTATION 12/18/16 HISTORY OF PRESENT ILLNESS Setfanie is a very pleasant 66-year lady whose chief complaint is shortness of breath and chest pain after coughing. She feels better today. She otherwise denies any fevers or chills, GI or bleeding, paroxysmal nocturnal dyspnea, orthopnea, syncope or dizziness. She did state she felt a little dizzy and nauseated prior to coming to the emergency room. PAST MEDICAL HISTORY 1. Diabetes, 2. Hypertension. SOCIAL HISTORY Denies tobacco or alcohol use. ALLERGIES Done MEDICATIONS Prior to admission 1. Oxycodone. 2. Amlodipine 10. 3. Glipizide 10 b.i.d. In the hospital. 1. Ferrous sulfate 325 b.i.d. 2. Amlodipine 10 daily. 3. Azithromycin. 4. Ceftriaxone 5. Tessalon 100, t.i.d. p.r.n. PHYSICAL EXAMINATION VITAL SIGNS: Blood pressure 130/71, pulse 115 ranging between 97-115. T-max 100.6, current temperature is 100.5, respiratory rate is 18. GENERAL: She is alert and oriented times three in no acute distress NECK: Supple. No JVD, no bruit CARDIOVASCULAR: S1, S2, no murmurs, rubs or gallops. LUNGS: Clear to auscultation bilaterally ABDOMEN: Soft, nontender, nondistended with positive bowel sounds EXTREMITIES: No lower extremity edema. IMAGING STUDIES Chest x-ray shows no acute disease. CARDIOLOGY STUDIES EKG shows normal sinus rhythm, a left bundle-branch block, rate of 96 beats per minute. She had an echocardiogram which showed an EF of 30-35%, diffuse hypokinesis, mild MR. Peak mitral valve gradient of 8 mmHg. Mean gradient of 3 mmHg. LABORATORY DATA White count 10.2, hemoglobin 8.6, hematocrit 27.7, platelet count 216. Sodium 142, potassium 5.5, chloride 113, BUN 36, creatinine 3.22, calcium 8.1, albumin 3.3. INR 0.9. DIAGNOSES 1. Cardiomyopathy. 2. Congestive heart failure 3. Hyperkalemia 4. Acute renal failure 5. Hyperglycemia. 6. Diabetes mellitus 7. Hypocalcemia. 8. Hypoalbuminemia. 9. Anemia 10. Tachycardia. 11. Left bundle-branch block. 12. Dyspnea 13. Chest pain associated with coughing 14. Mild MR. DISCUSSION At this point in time, the patient appears euvolemic. There is no edema on her chest x-ray. We will check a BNP, CHARLOTTE inhibitor is currently contraindicated due to acute renal failure. We will get a renal consult and defer diuretic parameters to renal. Blood pressure is currently controlled on [address] [facility]. We will also start Coreg 3.125 b.i.d. I will continue to follow him, recommend continued telemetry monitoring. MD ESTELA Berman/ /1:39 PM /6:12 PM
[2016-12-18 20:09] LABS: FREE T4 1.07 NG/DL (0.76-1.46)
[2016-12-18] MEDS: CARVEDILOL 3.125 MG TAB PO SCH (21:33)
[2016-12-18 21:34] LABS: ALBUMIN SPE 3.57 GM/DL (3.50-5.00); ALPHA 1 GLOBULIN 0.27 GM/DL (0.11-0.29); ALPHA 2 GLOBULIN 1.05 GM/DL (0.22-1.00); BETA GLOBULINS (SPE) 1.04 GM/DL (0.53-1.03)
--- NOTE | 2016-12-18 23:30 | HHI.PR ---
Subjective Remarks Patient seen this morning around 11:30 AM. She says that cough and breathing have improved somewhat. denies any chest pain. She feels much more calm today.. Still with fevers Objective Vital Signs Date Time Temp Pulse Resp B/P Pulse Ox O2 Delivery O2 Flow Rate FiO2 12/18/16 21:04 99.2 12/18/16 20:00 100.1 100 20 120/60 100 12/18/16 17:17 100.1 94 115/66 12/18/16 16:14 102.2 105 18 137/68 99 12/18/16 13:06 100.5 115 18 130/71 98 12/18/16 09:08 99.1 112 18 154/71 97 12/18/16 04:00 96.8 97 20 140/65 98 12/18/16 03:00 98.8 12/18/16 00:00 102.2 112 20 146/81 96 I/O 12/17/16 12/17/16 12/17/16 12/18/16 12/18/16 12/18/16 07:00 15:00 23:00 07:00 15:00 23:00 Intake Total 480 ml Output Total 525 ml 1300 ml Balance -525 ml -820 ml Intake Oral 480 ml Output Urine Total 525 ml 1300 ml # Voids 2 # Bowel Movements 0 3 Result Diagram: 12/18/1671812/18/16718 Objective Remarks GENERAL: patient sitting up in chair. still appears fatigued, however Appears to be breathing much more comfortably than yesterday. Alert and oriented 3. SKIN: Warm and dry. HEAD: Normocephalic. EYES: No scleral icterus. No injection or drainage. NECK: Supple, trachea midline. No JVD or lymphadenopathy. CARDIOVASCULAR: Regular rate and rhythm without murmurs, gallops, or rubs. RESPIRATORY: Breath sounds equal bilaterally. No accessory muscle use. GASTROINTESTINAL: Abdomen soft, non-tender, nondistended. MUSCULOSKELETAL: No cyanosis, or edema. BACK: Nontender without obvious deformity. No CVA tenderness. A/P Assessment and Plan == 12/18/16 //Sepsis. Fevers continue. Bronchitis with cough improved. Continue symptomatically treatment. Influenza testing pending. Blood cultures no growth today. Tylenol when necessary. Continue antibiotics. /Acute kidney injury. Possibly chronic kidney failure. Appreciate nephrology assistance. Creatinine with slight improvement. //Cardiomyopathy. Reduced ejection fraction. continue Coreg started by cardiology.Appreciate cardiology assistance. 66 y/o female with a history of HTN, chronic anemia, chronic pain, and DM presented to the ED with complaints of a dry non productive cough that started 1 month ago. She states she got up this morning and she felt weak and dizzy. She had some nausea this morning with no vomiting. Off and on diarrhea for the last few days. //sepsis. Tachycardia, tachypnea. Bronchitis. //Bronchitis, cough for the last month, no leukocytosis Strep negative Chest xray unremarkable -Antibiotics. - Tessalon pearls //Acute kidney failure, creatine 3.2 on admission., unknown baseline, patient denies any kidney disease -nephrology following. -Renal US with no obstruction. -Urine NA and creatine ordered -IVF hydration //Chronic pain -Cont home oxycodone //DM, chronic -Accu checks AC/HS -Diabetic diet //Hypokalemia. Mild. Fluids. Follow-up. //Cardiomyopathy. Reduced ejection fraction. appears euvolemic however. Continue Coreg. Appreciate cardiology assistance. DVT prophylaxis: SCDs Code Status Full Discharge Planning continued fevers. Continue supportive care. Norris Castillo MD Dec 18, 2016 23:30
[2016-12-19] VITALS (8 sets, daily range): BP systolic 104–141; BP diastolic 48–79; PULSE 91–102; RESP 14–20; TEMP 98.7–100.9; O2SAT 97–100
[2016-12-19] MEDS: cefTRIAXone INJ 2,000 MG in SODIUM CHLORIDE 0.9% INJ 100 ML IV SCH ×2 (02:42→14:03)
[2016-12-19] MEDS: ACETAMINOPHEN 325 MG TAB PO PRN ×3 (03:57→22:30)
[2016-12-19] MEDS: INSULIN ASPART SUPPLEMENTAL SCALE SQ SCH ×4 (06:40→21:00)
[2016-12-19] MEDS: SODIUM CHLORIDE 0.9% FLUSH 10 ML FLUSH IV FLUSH SCH ×2 (09:00→21:07)
--- NOTE | 2016-12-19 09:01 | PD.CARD.PN ---
Subjective Subjective Remarks asleep in nad Objective Vital Signs / I&O Vital Signs Date Time Temp Pulse Resp B/P Pulse Ox O2 Delivery O2 Flow Rate FiO2 12/19/16 08:22 98.9 91 18 118/63 99 12/19/16 04:00 100.9 100 20 104/48 98 12/19/16 00:00 100.9 100 20 104/48 98 12/19/16 00:00 99.2 102 20 137/79 98 12/18/16 21:04 99.2 12/18/16 20:00 100.1 100 20 120/60 100 12/18/16 17:17 100.1 94 115/66 12/18/16 16:14 102.2 105 18 137/68 99 12/18/16 13:06 100.5 115 18 130/71 98 12/18/16 09:08 99.1 112 18 154/71 97 I/O 12/18/16 12/18/16 12/18/16 12/19/16 12/19/16 12/19/16 07:00 15:00 23:00 07:00 15:00 23:00 Intake Total 480 ml 960 ml Output Total 525 ml 1300 ml 350 ml Balance -525 ml -820 ml -350 ml 960 ml Intake Oral 480 ml 360 ml IV Total 600 ml Output Urine Total 525 ml 1300 ml 350 ml # Bowel Movements 3 1 Laboratory GENERAL: SKIN: Warm and dry. HEAD: Normocephalic. EYES: No scleral icterus. No injection or drainage. NECK: Supple, trachea midline. No JVD or lymphadenopathy. CARDIOVASCULAR: Regular rate and rhythm without murmurs, gallops, or rubs. RESPIRATORY: Breath sounds equal bilaterally. No accessory muscle use. GASTROINTESTINAL: Abdomen soft, non-tender, nondistended. MUSCULOSKELETAL: No cyanosis, or edema. BACK: Nontender without obvious deformity. No CVA tenderness. Laboratory Tests Test 12/18/16 16:44 Erythrocyte Sedimentation Rate 75 mm/hr Assessment and Plan Problem List: (1) Acute kidney failure (2) Renal insufficiency (3) Stage 4 chronic kidney disease (4) CHF (congestive heart failure) (5) Cardiomyopathy Assessment and Plan 1.) Cardiomyopathy - euvolemic, continue coreg, nicole hled due to arf/cri, fluid mangaement per Ankit Quinteros MD Dec 19, 2016 09:01
[2016-12-19 09:11] LABS: AUTOMATED NEUTROPHIL # 6.2 TH/MM3 (1.8-7.7); BASOPHIL % 0.3 % (0.0-2.0); EOSINOPHIL # 0.2 TH/MM3 (0-0.4); EOSINOPHIL % 1.8 % (0.0-4.0); HEMATOCRIT 23.8 % (35.0-46.0); HEMO FLAGS DIFF FINAL; LYMPHOCYTE # 1.5 TH/MM3 (1.0-4.8); MEAN CELL VOLUME 65.9 FL (80.0-100.0); MEAN CORPUSCULAR HEMOGLOBIN 20.6 PG (27.0-34.0); MEAN CORPUSCULAR HGB CONC 31.2 % (32.0-36.0); MONO % 7.9 % (0.0-8.0); PLATELET COUNT 178 TH/MM3 (150-450); RED BLOOD COUNT 3.61 MIL/MM3 (4.00-5.30); RED CELL DISTRIBUTION WIDTH 16.3 % (11.6-17.2); WHITE BLOOD COUNT 8.5 TH/MM3 (4.0-11.0)
[2016-12-19] MEDS: DOCUSATE SODIUM 50 MG/SENNA 8.6 MG TAB PO SCH ×2 (09:14→21:05)
[2016-12-19] MEDS: FERROUS SULFATE 325 MG (65 MG ELEMENTAL IRON) TAB PO SCH ×2 (09:14→21:05)
[2016-12-19] MEDS: CARVEDILOL 3.125 MG TAB PO SCH ×2 (09:14→21:05)
[2016-12-19] MEDS: AZITHROMYCIN INJ 500 MG in SODIUM CHLOR 0.9% 250 ML INJ 250 ML IV SCH (09:15)
[2016-12-19 09:33] LABS: MAGNESIUM 2.2 MG/DL (1.5-2.5); POTASSIUM 4.6 MEQ/L (3.5-5.1)
[2016-12-19] MEDS ORDERED: SODIUM CHLOR 0.9% 250 ML INJ 250 ML IV ONE (10:30)
--- NOTE | 2016-12-19 10:53 | PD.CONS ---
History of Present Illness Service Infectious disease Consult Requested By Dr. Ronny Castillo Reason for Consult Evaluate patient with fevers Primary Care Physician No Primary Care Physician Diagnoses: History of Present Illness Patient seen and examined. Records reviewed. Patient is a 66-year-old female, presented to the hospital complaining of dizziness, some nausea and vomiting, and feeling feverish. Patient stated that she's had a cough for probably less than a month, and it's a fairly dry cough. She thought it would improve, and she started taking [id number] medication that she has at home. She decided to go to the pharmacy and spoke with the pharmacist and she try all of the medication in the pharmacy, and she was told that if she doesn't improve after 5 days that she needed to go to get herself evaluated. She was not running any fevers. About a day prior to admission, she started having some dizziness. She was having more coughing episodes, and had some chest pain due to the coughing. She had no episode of vomiting and diarrhea. She also started having some subjective fevers and some chills. Her coughing remain dry with no sputum production. She apparently had a granddaughter who was diagnosed to have a strep throat about a couple days prior to her symptoms getting worse. She denies any urinary complaint. Denies sore throat or post nasal drip or sinus problems. She has not had any travel. She has no pets at home. Patient lives with her who has no symptoms. On presentation, her CBC showed normal WBC. Chest x-ray is normal. She was found to have an elevated creatinine, and her renal ultrasound did not show any hydronephrosis but it did show findings of medical disease. Patient has been having fevers. Strep throat culture is negative. Influenza antigen is negative. Blood cultures are negative. Urinalysis is unremarkable. Patient has been on Zithromax and Rocephin. Patient currently feels better as far as her coughing. She has no other complaints. Infectious disease consultation has been requested to evaluate the patient. Review of Systems Constitutional: COMPLAINS OF: Fever, Dizziness, DENIES: Change in appetite Eyes: COMPLAINS OF: Photosensitivity Ears, nose, mouth, throat: DENIES: Nasal discharge, Oral lesions, Throat pain, Ear Pain, Sinus Pain Respiratory: COMPLAINS OF: Cough, DENIES: Hemoptysis, Sputum production, Shortness of breath Cardiovascular: DENIES: Chest pain, Palpitations, Syncope Gastrointestinal: DENIES: Abdominal pain, Diarrhea, Nausea, Vomiting, Difficulty Swallowing Genitourinary: DENIES: Urinary frequency, Dysuria Musculoskeletal: DENIES: Joint pain, Muscle aches, Stiffness, Joint Swelling Integumentary: DENIES: Pruritus, Rash Neurologic: DENIES: Headache Psychiatric: DENIES: Anxiety, Hallucinations Past Family Social History Allergies: Coded Allergies: No Known Allergies (Unverified , 12/17/16) Past Medical History Hypertension Diabetes Chronic kidney disease Anemia Chronic pain syndrome Past Surgical History Laser treatment for diabetic retinopathy Lens implants after cataract surgery Active Ordered Medications Tylenol Norvasc Zithromax Tessalon Dulcolax Coreg Rocephin Ferrous sulfate Insulin Atrovent Lactulose MOM Zofran Oxycodone Terese-Colace Senokot Social History No smoking No alcohol abuse No illicit drugs Physical Exam Vital Signs Vital Signs Date Time Temp Pulse Resp B/P Pulse Ox O2 Delivery O2 Flow Rate FiO2 12/19/16 08:22 98.9 91 18 118/63 99 12/19/16 04:00 100.9 100 20 104/48 98 12/19/16 00:00 100.9 100 20 104/48 98 12/19/16 00:00 99.2 102 20 137/79 98 12/18/16 21:04 99.2 12/18/16 20:00 100.1 100 20 120/60 100 12/18/16 17:17 100.1 94 115/66 12/18/16 16:14 102.2 105 18 137/68 99 12/18/16 13:06 100.5 115 18 130/71 98 Physical Exam GENERAL: Patient is a well-nourished, well-developed AAF, awake and alert, not in respiratory distress. SKIN: Warm and dry. No generalized rash, no ecchymoses and no evidence of embolic lesions. HEAD: Atraumatic. Normocephalic. No temporal wasting, or tenderness. EYES: [place] conjunctiva. No petechia or hemorrhage. Pupils equal, round and reactive to light. Extraocular movements full and intact. No scleral icterus. No injection or drainage. EARS, NOSE AND THROAT: Nose without bleeding or purulent nasal discharge. No sinus tenderness. Mucous membranes pink and moist. Edentulous. No oral lesions noted. No exudate. No oral thrush. NECK: Trachea midline. Supple and not tender, no meningeal signs CARDIOVASCULAR: Regular rate and rhythm. No murmurs, rubs or gallops heard RESPIRATORY: Clear to auscultation. Breath sounds equal bilaterally. No wheezing or rhonchi. Rales at bases, no E to A changes ABDOMEN: Soft, non-tender, nondistended. Bowel sounds present and normoactive. No guarding. No rebound. No organomegaly. EXTREMITIES: No clubbing, cyanosis, or edema.No joint effusion, has good ROM. No calf tenderness. Well perfused and warm. NEUROLOGICAL: Awake and alert. Cranial nerves grossly intact. Motor grossly within normal limits. PSYCHIATRIC: Normal affect, calm and cooperative. LINE: No evidence of infection Laboratory Laboratory Tests Test 12/18/16 12/19/16 16:44 07:30 Erythrocyte Sedimentation Rate 75 White Blood Count 8.5 Red Blood Count 3.61 Hemoglobin 7.4 Hematocrit 23.8 Mean Corpuscular Volume 65.9 Mean Corpuscular Hemoglobin 20.6 Mean Corpuscular Hemoglobin 31.2 Concent Red Cell Distribution Width 16.3 Platelet Count 178 Mean Platelet Volume 9.5 Neutrophils (%) (Auto) 73.0 Lymphocytes (%) (Auto) 17.0 Monocytes (%) (Auto) 7.9 Eosinophils (%) (Auto) 1.8 Basophils (%) (Auto) 0.3 Neutrophils # (Auto) 6.2 Lymphocytes # (Auto) 1.5 Monocytes # (Auto) 0.7 Eosinophils # (Auto) 0.2 Basophils # (Auto) 0.0 CBC Comment DIFF FINAL Differential Comment Sodium Level 141 Potassium Level 4.6 Chloride Level 112 Carbon Dioxide Level 21.0 Anion Gap 8 Blood Urea Nitrogen 32 Creatinine 3.38 Estimat Glomerular Filtration 17 Rate Random Glucose 148 Calcium Level 7.2 Phosphorus Level 4.0 Magnesium Level 2.2 Albumin 2.4 Date/Time Procedure Status Source Growth 12/19/16 03:45 Influenza Types A,B Antigen (THEE) - Final Complete Nasal Aspirate NEGATIVE FOR FLU A AND B ANTIGEN.... 12/17/16 10:50 Aerobic Blood Culture - Preliminary Resulted Blood Peripheral NO GROWTH IN 1 DAY 12/17/16 10:50 Anaerobic Blood Culture - Preliminary Resulted Blood Peripheral NO GROWTH IN 1 DAY 12/17/16 10:25 Group A Streptococcus Screen - Final Complete Throat NO GP A BETA STREP ISOLATED. 12/17/16 10:25 Group A Streptococcus Screen (THEE) - Final Complete Throat Result Diagram: 12/19/16 0730 12/19/16 0730 Imaging RADIOLOGY STUDIES/FILMS REVIEWED Chest X-Ray 12/17/16 1014 Signed Impressions: Service Date/Time: Saturday, December 17, 2016 10:58 - CONCLUSION: No acute disease. Elio Phillips MD FACR Renal Ultrasound 12/17/16 0000 Signed Impressions: Service Date/Time: Thursday, December 17, 2016 13:21 - CONCLUSION: 1. Sonographic findings consistent with medical renal disease. No obstruction. Kolby Hughes Jr., MD Assessment and Plan Assessment and Plan IMPRESSION Febrile illness, with cough as predominant complaint, CXR negative - ?CAP, ?viral syndrome - she does not look toxic appearing - ?other non-infectious etiology Renal insufficiency, has hx CKD, but her numbers worse compared to previous creatinine RECOMMENDATION Continue Zithromax, change to oral Continue Rocephin Repeat CXR Check [place] and pneumo Ag Check atypical serologies Check CRP and RF ANJANA and ANCA has been ordered by renal If CXR negative, will stop Rocephin, and complete 5 days Zithromax Monitor temps I continues to be febrile, the she will need further FUO work-up Renal evaluating her CKD I will follow along with you Thank you for this consultation Asia Murray MD Dec 19, 2016 10:53
[2016-12-19] MEDS: BENZONATATE 100 MG CAP PO PRN ×2 (11:07→23:26)
[2016-12-19 11:29] LABS: RETIC % 1.3 % (0.4-3.0); REVIEW FLAG FINAL
--- NOTE | 2016-12-19 11:39 | RADRPT ---
EXAM DATE/TIME: 12/19/2016 10:38 [facility] COMPARISON: CHEST SINGLE AP, December 17, 2016, 10:58. INDICATIONS : Pneumonia/ Cough x 1 month MEDICAL HISTORY : None. SURGICAL HISTORY : None. ENCOUNTER: Subsequent ACUITY: 3 days PAIN SCORE: 0/10 LOCATION: Bilateral chest FINDINGS: Single AP view of the chest. Bilateral lower lung zone predominant parenchymal opacity and small righ t pleural effusion. Mild pulmonary vasculature indistinctness. Cardiomediastinal silhouette unchanged . No evidence of pneumothorax. CONCLUSION: 1. Increased bilateral pulmonary opacity with lower lung zone predominance and small right pleural ef fusion. 2. Differential diagnosis includes pulmonary edema and infection. Lawson Smith MD on December 19, 2016 at 11:35 Board Certified Radiologist. This report was verified electronically.
[2016-12-19] MEDS ORDERED: CALCIUM GLUCONATE INJ 2 GM in DEXTROSE 5% IN WATER 100ML INJ 100 ML IV ONE ×2 (12:00)
[2016-12-19 13:54] LABS: RHEUMATOID FACTOR TRIGGER LESS THAN 10.0 IU/ML (0.0-14.9)
--- NOTE | 2016-12-19 16:21 | RADRPT ---
EXAM DATE/TIME: 12/19/2016 15:40 [facility] COMPARISON: No previous studies available for comparison. INDICATIONS : Fever and cough. MEDICAL HISTORY : None. SURGICAL HISTORY : None. ENCOUNTER: Initial ACUITY: 3 days PAIN SCORE: 0/10 LOCATION: chest FINDINGS: PA and lateral views of the chest. Moderate bilateral interstitial opacity and pulmonary vasculature indistinctness. Small bilateral pleural effusions. Cardiomediastinal silhouette within normal limits. No evidence of pneumothorax. CONCLUSION: Bilateral diffuse interstitial opacity likely representing pulmonary edema, and small pleural effusio ns. Lawson Smith MD on December 19, 2016 at 16:17 Board Certified Radiologist. This report was verified electronically.
--- NOTE | 2016-12-19 16:36 | HHI.NPPN ---
Subjective History of Present Illness 66-year-old female with a past medical history of hypertension, diabetes mellitus, chronic anemia, history of back pain and chronic kidney disease, came to the hospital with complaint of nausea, vomiting, diarrhea and back pain. I was called to see the patient with a high BUN and creatinine. The patient was found to have BUN of 36 and creatinine of 3.2. Additional Remarks Patient is alert, with nasal cannula, mild SOB and cough, clinically same. Review of Systems General Constitutional: Fatigue Respiratory Lungs: SOB, Cough, Sputum, Wheeze Cardiovascular Cardiac: BARBOUR Objective Data Data 12/18/16 12/19/16 19:00 07:00 Intake Total 240 ml 240 ml Output Total 1300 ml 350 ml Balance -1060 ml -110 ml Intake Oral 240 ml 240 ml Output Urine Total 1300 ml 350 ml # Bowel Movements 3 1 Vital Signs Date Time Temp Pulse Resp B/P Pulse Ox O2 Delivery O2 Flow Rate FiO2 12/19/16 15:50 100.7 96 18 118/62 100 12/19/16 13:50 98.7 95 18 116/61 100 12/19/16 08:22 98.9 91 18 118/63 99 12/19/16 04:00 100.9 100 20 104/48 98 12/19/16 00:00 100.9 100 20 104/48 98 12/19/16 00:00 99.2 102 20 137/79 98 12/18/16 21:04 99.2 12/18/16 20:00 100.1 100 20 120/60 100 12/18/16 17:17 100.1 94 115/66 -: 12/19/16 0730 12/19/16 0730 Microbiology 12/19/16 Influenza Types A,B Antigen (THEE) - Final, Complete NEGATIVE FOR FLU A AND B ANTIGEN.... 12/19/16 Legionella Antigen - Final, Complete PRESUMPTIVE NEGATIVE FOR LEGIONELLA P... 12/19/16 Streptococcus pneumoniae Antigen (M - Final, Complete PRESUMPTIVE NEGATIVE FOR STREPTOCOCCU... 12/19/16 Aerobic Blood Culture, Received Pending 12/19/16 Anaerobic Blood Culture, Received Pending 12/19/16 Aerobic Blood Culture, Received Pending 12/19/16 Anaerobic Blood Culture, Received Pending Physical Exam General Appearance: No Acute Distress, Comfortable Eyes Eye Exam: Pupils Equal Throat Throat Exam: Oral Mucosa [place] & Moist Neck Neck Exam: Neck Supple Pulmonary Resp Exam: Crackles, Rhonchi, Sputum, Decreased Bases, Diminished Breath Sounds Cardiology CV Exam: Regular, Normal Sinus Rhythm Gastrointestinal/Abdomen GI Exam: Soft, Non-Tender, Bowel Sounds Present, Distended Extremeties Extremities Exam: No Edema Neurologic Neuro Exam: Alert, Awake, Oriented Psychiatric Psych Exam: Appropriate Responses Assessment/Plan Assessment Summary: GRADY/Acute Renal Failure, Anemia of CKD, CHF, CKD Stage IV Problem List: (1) Bronchitis (2) Anemia (3) Stage 4 chronic kidney disease (4) Acute kidney failure Plan Patient is non oliguric, has some increase in the Creatinine. Most likely has advance chronic kidney disease due to Hypertensive and/or Diabetic Nephropathy. Continue gentle hydration and antibiotics. Possibly has an element of GRADY. On Ceftriaxone. Svitlana Cook MD Dec 19, 2016 16:35
--- NOTE | 2016-12-19 22:42 | HHI.PR ---
Subjective Remarks Patient seen this morning around 10 AM. Patient says she is feeling about the same as yesterday. She denies any chest pain. She reports shortness of breath better, but still about the same as yesterday. Dry cough as before. Denies any bleeding. Continued fevers. Anemia. Renal function slightly worsened today 3.4. Objective Vital Signs Date Time Temp Pulse Resp B/P Pulse Ox O2 Delivery O2 Flow Rate FiO2 12/19/16 15:50 100.7 96 18 118/62 100 12/19/16 13:50 98.7 95 18 116/61 100 12/19/16 08:22 98.9 91 18 118/63 99 12/19/16 04:00 100.9 100 20 104/48 98 12/19/16 00:00 100.9 100 20 104/48 98 12/19/16 00:00 99.2 102 20 137/79 98 I/O 12/18/16 12/18/16 12/18/16 12/19/16 12/19/16 12/19/16 07:00 15:00 23:00 07:00 15:00 23:00 Intake Total 480 ml 960 ml Output Total 525 ml 1300 ml 350 ml 600 ml Balance -525 ml -820 ml -350 ml 960 ml -600 ml Intake Oral 480 ml 360 ml IV Total 600 ml Output Urine Total 525 ml 1300 ml 350 ml 600 ml # Bowel Movements 3 1 Result Diagram: 12/19/1630 12/19/16 0730 Objective Remarks GENERAL: patient sitting up in chair. appears comfortable. Alert and oriented 3. SKIN: Warm and dry. HEAD: Normocephalic. EYES: No scleral icterus. No injection or drainage. NECK: Supple, trachea midline. No JVD. CARDIOVASCULAR: Regular rate and rhythm without murmurs, gallops, or rubs. RESPIRATORY: Breath sounds equal bilaterally. No accessory muscle use. GASTROINTESTINAL: Abdomen soft, non-tender, nondistended. MUSCULOSKELETAL: No cyanosis, or edema. BACK: Nontender without obvious deformity. No CVA tenderness. A/P Assessment and Plan == 12/19/16 //Anemia. Acute on chronic. Patient with history of thalassemia. We'll check reticulocyte count. May be anemia of chronic inflammation. We'll consult patient's campus recruiting coordinator who follows her for thalassemia. Patient denies any bleeding. Reticulocyte count inappropriate for anemia. Transfuse 1 unit. //Sepsis. Continues. Blood cultures negative so far. X-ray now with right pleural effusion. Could be evolving pneumonia. Patient clinically improved from admission, with the exception of continued fevers and inflammatory response. Continue antibiotics as per infectious disease. Appreciate assistance. /Acute kidney injury. Possibly chronic kidney failure. Unknown baseline, however patient does follow with roller skate repairer outside. Appreciate nephrology assistance. Creatinine overall stable. Monitoring. //Right lung Pleural effusion seen on x-ray 12/19. If fevers continue, and this may need to be tapped. Appreciate infectious disease assistance. //Cardiomyopathy. Reduced ejection fraction on echocardiogram. continue Coreg started by cardiology.Appreciate cardiology assistance. 66 y/o female with a history of HTN, chronic anemia, chronic pain, and DM presented to the ED with complaints of a dry non productive cough that started 1 month ago. She states she got up this morning and she felt weak and dizzy. She had some nausea this morning with no vomiting. Off and on diarrhea for the last few days. //sepsis. Tachycardia, tachypnea. Bronchitis. //Bronchitis, cough for the last month, no leukocytosis Strep negative Chest xray unremarkable -Antibiotics. - Tessalon pearls //Acute kidney failure, creatine 3.2 on admission., unknown baseline, patient denies any kidney disease -nephrology following. -Renal US with no obstruction. -Urine NA and creatine ordered -IVF hydration //Chronic pain -Cont home oxycodone //DM, chronic -Accu checks AC/HS -Diabetic diet //Hypokalemia. Mild. Fluids. Follow-up. //Cardiomyopathy. Reduced ejection fraction. appears euvolemic however. Continue Coreg. Appreciate cardiology assistance. DVT prophylaxis: SCDs Code Status Full Discharge Planning continued fevers. Continue supportive care. Discharge Planning continued fevers. Continue supportive care. physical therapy following. Appreciate assistance Norris Castillo MD Dec 19, 2016 22:42
[2016-12-20] VITALS (10 sets, daily range): BP systolic 123–148; BP diastolic 61–75; PULSE 87–101; RESP 18–20; TEMP 96.2–100.3; O2SAT 92–100
[2016-12-20 01:19] LABS: BACTERIA, URINE OCC /hpf; BLOOD, URINE SMALL (NEG); COMMENT (UR) CULT NOT INDICATED; CULTURE IF INDICATED CULT NOT INDICATED; GLUCOSE,URINE NEG (NEG); KETONE, URINE NEG (NEG); MUCUS URINE FEW /lpf (OCC); NITRITE,URINE NEG (NEG); PH, URINE 5.5 (5.0-8.5); SQUAMOUS EPITHELIAL CELL URINE 1 /hpf (0-5); URINE COLOR YELLOW (YELLW/STRAW)
[2016-12-20] MEDS: cefTRIAXone INJ 2,000 MG in SODIUM CHLORIDE 0.9% INJ 100 ML IV SCH ×2 (02:30→13:48)
[2016-12-20] MEDS: BENZONATATE 100 MG CAP PO PRN ×3 (06:28→21:54)
[2016-12-20] MEDS: INSULIN ASPART SUPPLEMENTAL SCALE SQ SCH ×4 (06:34→21:00)
[2016-12-20] MEDS: AZITHROMYCIN 250 MG TAB PO SCH (08:34)
[2016-12-20] MEDS: FERROUS SULFATE 325 MG (65 MG ELEMENTAL IRON) TAB PO SCH ×2 (08:34→21:55)
[2016-12-20] MEDS: DOCUSATE SODIUM 50 MG/SENNA 8.6 MG TAB PO SCH ×2 (08:34→21:00)
[2016-12-20] MEDS: CARVEDILOL 3.125 MG TAB PO SCH ×2 (08:34→21:54)
[2016-12-20] MEDS: SODIUM CHLORIDE 0.9% FLUSH 10 ML FLUSH IV FLUSH SCH ×2 (08:35→21:56)
[2016-12-20 08:54] LABS: AUTOMATED NEUTROPHIL # 6.5 TH/MM3 (1.8-7.7); BASOPHIL % 0.4 % (0.0-2.0); EOSINOPHIL # 0.3 TH/MM3 (0-0.4); EOSINOPHIL % 3.3 % (0.0-4.0); HEMATOCRIT 29.8 % (35.0-46.0); HEMO FLAGS DIFF FINAL; LYMPH % 16.6 % (9.0-44.0); LYMPHOCYTE # 1.5 TH/MM3 (1.0-4.8); MEAN CELL VOLUME 69.3 FL (80.0-100.0); MEAN CORPUSCULAR HEMOGLOBIN 21.8 PG (27.0-34.0); MEAN CORPUSCULAR HGB CONC 31.4 % (32.0-36.0); NEUT % 72.7 % (16.0-70.0); PLATELET COUNT 192 TH/MM3 (150-450); WHITE BLOOD COUNT 8.9 TH/MM3 (4.0-11.0)
[2016-12-20 09:06] LABS: BICARBONATE 21.8 MEQ/L (21.0-32.0); MAGNESIUM 2.3 MG/DL (1.5-2.5); POTASSIUM 4.6 MEQ/L (3.5-5.1)
--- NOTE | 2016-12-20 09:06 | HHI.NPPN ---
Subjective History of Present Illness 66-year-old female with a past medical history of hypertension, diabetes mellitus, chronic anemia, history of back pain and chronic kidney disease, came to the hospital with complaint of nausea, vomiting, diarrhea and back pain. I was called to see the patient with a high BUN and creatinine. The patient was found to have BUN of 36 and creatinine of 3.2. Additional Remarks Non oliguric. Labs are pending. Serologies ordered: ANJANA is negative. Review of Systems General Constitutional: Fatigue Respiratory Lungs: SOB, Cough, Sputum, Wheeze Cardiovascular Cardiac: [place] Objective Data Data 12/19/16 12/20/16 19:00 07:00 Intake Total 960 ml 480 ml Output Total 600 ml 1000 ml Balance 360 ml -520 ml Intake Oral 360 ml 480 ml IV Total 600 ml Output Urine Total 600 ml 1000 ml # Bowel Movements 0 Vital Signs Date Time Temp Pulse Resp B/P Pulse Ox O2 Delivery O2 Flow Rate FiO2 12/20/16 08:00 98.9 101 19 148/72 94 12/20/16 06:33 98.5 87 18 128/67 99 12/20/16 02:45 99.1 88 18 128/67 99 12/20/16 02:13 99.0 90 18 123/61 100 12/20/16 01:10 99.7 92 20 136/68 97 12/20/16 00:10 99.5 89 20 142/69 100 12/20/16 00:00 99.5 90 18 138/70 100 12/19/16 23:06 100.0 102 20 141/70 99 12/19/16 22:49 99.9 97 14 136/65 100 12/19/16 20:00 100.2 95 18 123/58 97 12/19/16 15:50 100.7 96 18 118/62 100 12/19/16 13:50 98.7 95 18 116/61 100 -: 12/20/16 0724 12/19/16 0730 Microbiology 12/19/16 Legionella Antigen - Final, Complete PRESUMPTIVE NEGATIVE FOR LEGIONELLA P... 12/19/16 Streptococcus pneumoniae Antigen (M - Final, Complete PRESUMPTIVE NEGATIVE FOR STREPTOCOCCU... 12/19/16 Aerobic Blood Culture, Received Pending 12/19/16 Anaerobic Blood Culture, Received Pending 12/19/16 Aerobic Blood Culture, Received Pending 12/19/16 Anaerobic Blood Culture, Received Pending Physical Exam General Appearance: No Acute Distress, Comfortable Eyes Eye Exam: Pupils Equal Throat Throat Exam: Oral Mucosa [place] & Moist Neck Neck Exam: Neck Supple Pulmonary Resp Exam: Crackles, Rhonchi, Sputum, Decreased Bases, Diminished Breath Sounds Cardiology CV Exam: Regular, Normal Sinus Rhythm Gastrointestinal/Abdomen GI Exam: Soft, Non-Tender, Bowel Sounds Present, Distended Extremeties Extremities Exam: No Edema Neurologic Neuro Exam: Alert, Awake, Oriented Psychiatric Psych Exam: Appropriate Responses Assessment/Plan Assessment Summary: GRADY/Acute Renal Failure, Anemia of CKD, CHF, CKD Stage IV Problem List: (1) Bronchitis (2) Anemia (3) Stage 4 chronic kidney disease (4) Acute kidney failure Plan Labs are pending today. Most likely has advance chronic kidney disease due to Hypertensive nephrosclerosis or and/or Diabetic Nephropathy. Echo reveals diffuse hypokinesis, EF of 30-35 %. Give iron supplement and Epogen one dose for anemia. The patient may need dialysis in the near future. Cristian White MD Dec 20, 2016 09:06
--- NOTE | 2016-12-20 09:27 | HHI.PR ---
Subjective Remarks Patient continues to have cough, improved subjectively since starting Rocephin and Azithro. Tessalon helping symptom. She states that the cough is dry and nonproductive. Objective Vitals Vital Signs Date Time Temp Pulse Resp B/P Pulse Ox O2 Delivery O2 Flow Rate FiO2 12/20/16 08:00 98.9 101 19 148/72 94 12/20/16 06:33 98.5 87 18 128/67 99 12/20/16 02:45 99.1 88 18 128/67 99 12/20/16 02:13 99.0 90 18 123/61 100 12/20/16 01:10 99.7 92 20 136/68 97 12/20/16 00:10 99.5 89 20 142/69 100 12/20/16 00:00 99.5 90 18 138/70 100 12/19/16 23:06 100.0 102 20 141/70 99 12/19/16 22:49 99.9 97 14 136/65 100 12/19/16 20:00 100.2 95 18 123/58 97 12/19/16 15:50 100.7 96 18 118/62 100 12/19/16 13:50 98.7 95 18 116/61 100 I/O 12/19/16 12/19/16 12/19/16 12/20/16 12/20/16 12/20/16 07:00 15:00 23:00 07:00 15:00 23:00 Intake Total 960 ml 480 ml Output Total 350 ml 600 ml 1000 ml Balance -350 ml 960 ml -600 ml -520 ml Intake Oral 360 ml 480 ml IV Total 600 ml Output Urine Total 350 ml 600 ml 1000 ml # Bowel Movements 1 0 Result Diagram: 12/20/1672312/20/1624 Objective Remarks GENERAL: patient sitting up in chair. appears comfortable. Alert and oriented 3. SKIN: Warm and dry. HEAD: Normocephalic. EYES: No scleral icterus. No injection or drainage. NECK: Supple, trachea midline. No JVD. CARDIOVASCULAR: Regular rate and rhythm without murmurs, gallops, or rubs. No LE edema. RESPIRATORY: Breath sounds equal bilaterally. No accessory muscle use. GASTROINTESTINAL: Abdomen soft, non-tender, nondistended. MUSCULOSKELETAL: No cyanosis, or edema. BACK: Nontender without obvious deformity. No CVA tenderness. Urinary Catheter: Yes Assessment to: Continue Eagle insert reason: Measure Accurate Output Vascular Central Line Catheter: No A/P Problem List: (1) Bronchitis ICD Code: J40 Status: Acute (2) Acute kidney failure ICD Code: N17.9 Status: Acute (3) CHF (congestive heart failure) ICD Code: I50.9 Status: Acute (4) Anemia ICD Code: D64.9 Status: Acute Assessment and Plan 66 y/o female with a history of HTN, chronic anemia, chronic pain, and DM presented to the ED with complaints of a dry non productive cough that started 1 month ago. She states she got up this morning and she felt weak and dizzy. She had some nausea this morning with no vomiting. Off and on diarrhea for the last few days. Sepsis. Tachycardia, tachypnea. Pleural effusion on CXR 12/19. No leukocytosis Strep negative Chest xray unremarkable -Antibiotics (rocephin and azithro) -Tessalgrupo garcia -ID consulted Acute kidney failure, creatine 3.2 on admission., unknown baseline, patient denies any kidney disease. Continued to have GFR 15, not improved. Patient producing urine, eagle in place. -nephrology following, appreciate assistance -Avoid nephrotoxic meds -Renal US with no obstruction. -Urine NA and creatine ordered, wnl -IVF hydration as ordered by nephrology CHF. EF 30-35%. Reduced ejection fraction. appears euvolemic however. - Continue Coreg. -Appreciate cardiology assistance. Anemia. Acute on chronic. Patient with history of thalassemia. No active bleeding -consult patient's pilot plant operator helper who follows her for thalassemia. Chronic pain -Cont home oxycodone DM, chronic -Accu checks AC/HS -Diabetic diet Hypokalemia. Mild. Fluids. Follow-up. DVT prophylaxis: SCDs Code Status Full Discharge Planning pending improved respiratory status. pending nephrology clearance Susana Jones MD Dec 20, 2016 09:27 DVT prophylaxis: SCDs Code Status Full Discharge Planning continued fevers. Continue supportive care. Susana Jones MD Dec 20, 2016 09:27
--- NOTE | 2016-12-20 10:11 | PD.CARD.PN ---
Subjective Subjective Remarks alert in nad Objective Vital Signs / I&O Vital Signs Date Time Temp Pulse Resp B/P Pulse Ox O2 Delivery O2 Flow Rate FiO2 12/20/16 08:00 98.9 101 19 148/72 94 12/20/16 06:33 98.5 87 18 128/67 99 12/20/16 02:45 99.1 88 18 128/67 99 12/20/16 02:13 99.0 90 18 123/61 100 12/20/16 01:10 99.7 92 20 136/68 97 12/20/16 00:10 99.5 89 20 142/69 100 12/20/16 00:00 99.5 90 18 138/70 100 12/19/16 23:06 100.0 102 20 141/70 99 12/19/16 22:49 99.9 97 14 136/65 100 12/19/16 20:00 100.2 95 18 123/58 97 12/19/16 15:50 100.7 96 18 118/62 100 12/19/16 13:50 98.7 95 18 116/61 100 I/O 12/19/16 12/19/16 12/19/16 12/20/16 12/20/16 12/20/16 07:00 15:00 23:00 07:00 15:00 23:00 Intake Total 960 ml 480 ml Output Total 350 ml 600 ml 1000 ml Balance -350 ml 960 ml -600 ml -520 ml Intake Oral 360 ml 480 ml IV Total 600 ml Output Urine Total 350 ml 600 ml 1000 ml # Bowel Movements 1 0 Physical Exam GENERAL: SKIN: Warm and dry. HEAD: Normocephalic. EYES: No scleral icterus. No injection or drainage. NECK: Supple, trachea midline. No JVD or lymphadenopathy. CARDIOVASCULAR: Regular rate and rhythm without murmurs, gallops, or rubs. RESPIRATORY: Breath sounds equal bilaterally. No accessory muscle use. GASTROINTESTINAL: Abdomen soft, non-tender, nondistended. MUSCULOSKELETAL: No cyanosis, or edema. BACK: Nontender without obvious deformity. No CVA tenderness. Laboratory Laboratory Tests Test 12/19/16 12/19/16 12/19/16 12/20/16 13:06 17:26 21:11 00:40 C-Reactive Protein 17.80 MG/DL 25-Hydroxy Vitamin D Total 12.6 ng/ML Rheumatoid Factor Screen NEGATIVE Rheumatoid Factor Titer IU/ML Blood Type O NEGATIVE O NEGATIVE Antibody Screen NEGATIVE Crossmatch Leukocyte-Reduced Red Blood Cells Blood Bank Comment B-Type Natriuretic Peptide 229 PG/ML Urine Color YELLOW Urine Turbidity HAZY Urine pH 5.5 Urine Specific [place] 1.011 Urine Protein 30 mg/dL Urine Glucose (UA) NEG mg/dL Urine Ketones NEG mg/dL Urine Occult Blood SMALL Urine Nitrite NEG Urine Bilirubin NEG Urine Urobilinogen LESS THAN 2.0 MG/DL Urine Leukocyte Esterase LARGE Urine RBC 14 /hpf Urine WBC 6 /hpf Urine Squamous Epithelial 1 /hpf Cells Urine Bacteria OCC /hpf Urine Mucus FEW /lpf Urine Yeast (Budding) FEW Microscopic Urinalysis Comment CULT NOT INDICATED Test 12/20/16 07:24 White Blood Count 8.9 TH/MM3 Red Blood Count 4.30 MIL/MM3 Hemoglobin 9.4 GM/DL Hematocrit 29.8 % Mean Corpuscular Volume 69.3 FL Mean Corpuscular Hemoglobin 21.8 PG Mean Corpuscular Hemoglobin 31.4 % Concent Red Cell Distribution Width 17.0 % Platelet Count 192 TH/MM3 Mean Platelet Volume 9.3 FL Neutrophils (%) (Auto) 72.7 % Lymphocytes (%) (Auto) 16.6 % Monocytes (%) (Auto) 7.0 % Eosinophils (%) (Auto) 3.3 % Basophils (%) (Auto) 0.4 % Neutrophils # (Auto) 6.5 TH/MM3 Lymphocytes # (Auto) 1.5 TH/MM3 Monocytes # (Auto) 0.6 TH/MM3 Eosinophils # (Auto) 0.3 TH/MM3 Basophils # (Auto) 0.0 TH/MM3 CBC Comment DIFF FINAL Differential Comment Sodium Level 139 MEQ/L Potassium Level 4.6 MEQ/L Chloride Level 110 MEQ/L Carbon Dioxide Level 21.8 MEQ/L Anion Gap 7 MEQ/L Blood Urea Nitrogen 34 MG/DL Creatinine 3.68 MG/DL Estimat Glomerular Filtration 15 ML/MIN Rate Random Glucose 129 MG/DL Calcium Level 8.3 MG/DL Phosphorus Level 4.5 MG/DL Magnesium Level 2.3 MG/DL Albumin 2.7 GM/DL Assessment and Plan Problem List: (1) Acute kidney failure (2) Renal insufficiency (3) Stage 4 chronic kidney disease (4) CHF (congestive heart failure) (5) Cardiomyopathy Assessment and Plan 1.) Cardiomyopathy - euvolemic, continue coreg, nicole hled due to arf/cri, fluid mangaement per Ankit Quinteros MD Dec 20, 2016 10:11
--- NOTE | 2016-12-20 15:29 | MB ---
cc: MARIAH JORDAN MD DATE OF CONSULTATION 12/20/2016 Consult requested by the hospitalist service. REASON FOR CONSULTATION Severe microcytic anemia associated with renal failure. PRIMARY CARE PHYSICIAN Formerly was Dr. Mk Carter who has retired several months ago, the patient presently has no primary care physician. CHIEF COMPLAINT Chronic cough which had been ongoing for the past 1 month. The patient also reports having had constipation as well as progressive fatigue and weakness. HISTORY OF PRESENT ILLNESS Ms. Rg is a 66-year-old female who reports being in her usual state of health up until about a month ago, for the past 1 month she tells me she has had a "raspy voice, scratchy throat and a cough producing scant phlegm. She tells me the symptoms were not improving regardless of what she tried (she tried various [id number] cough medications and cough drops). Because of primary care physician retired she tells me she was unable to get in to see anybody about her symptoms. She also notes having had progressive constipation and she tells me when she becomes constipated her abdomen distends and she feels short of breath. She presented to the emergency department for further workup and management and is noted to have acute on chronic renal insufficiency, anemia beyond her typical baseline and was hospitalized for further workup and management. 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 Mk Carter. (I am unable to locate a serum protein electrophoresis which confirmed this diagnosis). She also has chronic renal insufficiency with a baseline creatinine clearance between 18 and 25 ml per minute as of March of 2016. PAST MEDICAL HISTORY 1. Diabetes. 2. Chronic kidney insufficiency secondary to diabetes. 3. Diabetic retinal detachment. 4. Hypertension. 5. History of monoclonal myopathy (though the most recent serum protein electrophoresis from October 2016 did not identify any), obesity. 6. Peripheral neuropathy. 7. Chronic microcytic anemia. PAST SURGICAL HISTORY Cataract surgeries. Colonoscopies. GYNECOLOGIC HISTORY 6, para 6. She is postmenopausal. FAMILY HISTORY Parents are both . She denies any oncologic diagnoses in the family. SOCIAL HISTORY The patient is , she lives at home with her . 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 ALLERGIES LISINOPRIL WHICH MAKES HER COUGH. MEDICATIONS Current inpatient medications: 1. Ceftriaxone 200 milligrams IV q.12 hours. 2. Tylenol 650 milligrams q.4 hours as needed for fever. 3. Amlodipine 10 milligrams once a day. 4. Azithromycin 500 milligrams p.o. daily. 5. Tessalon pearls 100 milligrams p.o. t.i.d. 6. Coreg 3.125 milligrams p.o. q. 12 hours. 7. Senna/Colace 1 tablet twice daily. 8. Ferrous sulfate 325 milligrams p.o. b.i.d. 9. Ipratropium 0.5 milligrams nebulized every 4 hours. 10. Low-dose insulin sliding scale. 11. Milk of magnesia 30 ml p.o. q.12 hours. 12. Zofran 4 milligrams IV q.6 hours. 13. Oxycodone 5 milligrams p.o. q.6 hours as needed for pain. 14. Senna 17.2 milligrams p.o. q. 12 hours needed for moderate to severe pain. REVIEW OF SYSTEMS 13-point review of systems were obtained. The following are the pertinent positives: CONSTITUTIONAL: The patient reports fatigue, weakness, decreased appetite, she reports having had chills but is not sure if she had a fever. HEENT: Denies headaches. She has poor vision. She denies difficulty swallowing, she reports a scratchy throat. RESPIRATORY: Cough producing scant phlegm, she denies pleuritic chest pain or hemoptysis. CARDIOVASCULAR: Denies angina-like chest pain, PND, orthopnea. She denies lower extremity swelling. GI: Denies nausea, vomiting, diarrhea, hematochezia, melena. UG: No complaints. MUSCULOSKELETAL: She reports chronic pain involving her back and hips. No other complaints reported. PHYSICAL EXAMINATION VITAL SIGNS: Temperature 98.9 degrees Fahrenheit, heart rate 101 beats a minute, blood pressure is 148/72, respiratory rate 19, O2 sats 94% on 2 liters nasal cannula. GENERAL APPEARANCE: Ms. Rg is an elderly lady, she is sitting up on a bedside chair, she appears to be in no acute distress. HEENT: Head atraumatic, normocephalic, conjunctive are pale, sclerae are anicteric, oral exam moist mucous membranes, there is pallor of the mucous membranes, no pharyngeal erythema. NECK: Neck exam no palpable cervical or supraclavicular adenopathy. RESPIRATORY: On posterior exam she has good air movement bilaterally with good air movement over the bases as well. CARDIOVASCULAR: Regular rate and rhythm, S1-S2 without any obvious murmurs, rubs or gallops. ABDOMEN: Protuberant belly, soft, nontender, nondistended. No palpable organ enlargement, specifically no hepatosplenomegaly. EXTREMITIES: No pretibial edema. No calf tenderness. She has a Cisneros catheter in place. MUSCULOSKELETAL: She has generally decreased muscle mass and tone. ERP BUSINESS ANALYST: No focal, sensory motor deficits noted. LABORATORY FINDINGS Blood work dated 12/20/2016: Sodium 139, potassium 4.6, chloride 110, bicarbonate 21, BUN 34, creatinine 3.68, EGFR 15, random glucose 129, calcium 8.3, phosphorus 4.5, magnesium 2.3, albumin 2.7, CRP is 17.8, BNP is elevated at 229. CBC dated 12/20/2016: WBC count 8.9, hemoglobin is 9.4 gm/dl, hematocrit 30%, MCV 69, platelet count is 129, absolute reticulocyte count is 45.4. Hemoglobin electrophoresis is pending at this time. IMAGING STUDIES Ultrasound of the kidneys dated 12/17/2016: Indicates medical renal disease without evidence of obstruction. ASSESSMENT Ms gR is a 66-year-old female with a chronic microcytic anemia (initially thought to be secondary to thalassemia minor), she also has diabetes, hypertension, diabetic retinopathy and diabetes related chronic kidney failure. She comes in to the hospital with a 1-month history of non-relenting cough, constipation and generalized fatigue. She was noted to have worsening renal insufficiency and was also noted to have acute on chronic renal insufficiency. The hematology service has been asked to see here for further workup and management of her anemia. RECOMMENDATIONS 1. Chronic microcytic anemia: She is thought to have a hemoglobinopathy. A hemoglobin electrophoresis is pending at this time. Though in the past she has been diagnosed with thalassemia minor, I have no verification of this. Therefore, the hemoglobin electrophoresis was a very good idea (hopefully was drawn prior to her undergoing a red cell transfusion). 2. Serum iron studies were reviewed, she appears to have really no evidence of iron deficiency as the iron studies seen most consistent with anemia of chronic disease. Her CRP is quite elevated and this implies an underlying inflammatory state. 3. I will review her peripheral slide to assess the morphologic character for red blood cells as well as the other blood cell lineage. MD LAURA Israel/NEENA /11:07 AM /3:00 PM MTDTrina
[2016-12-20] MEDS: ACETAMINOPHEN 325 MG TAB PO PRN (22:09)
[2016-12-21] VITALS: BP 140/52; PULSE 92; RESP 18; TEMP 98.2; O2SAT 96
[2016-12-21] MEDS: cefTRIAXone INJ 2,000 MG in SODIUM CHLORIDE 0.9% INJ 100 ML IV SCH ×2 (02:21→13:15)
[2016-12-21 03:49] LABS: MYELOPEROXIDASE LESS THAN 1.0 AI (<1.0); PROTEINASE-3 LESS THAN 1.0 AI (<1.0)
[2016-12-21 04:00] VITALS: BP 161/74; PULSE 86; RESP 18; TEMP 97.7; O2SAT 96
[2016-12-21] MEDS: BENZONATATE 100 MG CAP PO PRN ×3 (06:18→21:22)
[2016-12-21] MEDS: MAGNESIUM HYDROXIDE SUSP 30 ML CUP PO PRN (06:19)
[2016-12-21] MEDS: INSULIN ASPART SUPPLEMENTAL SCALE SQ SCH ×4 (06:38→21:00)
[2016-12-21 08:00] VITALS: BP 157/72; PULSE 97; RESP 19; TEMP 96.8; O2SAT 91
[2016-12-21 08:08] LABS: AUTOMATED NEUTROPHIL # 5.6 TH/MM3 (1.8-7.7); BASOPHIL # 0.1 TH/MM3 (0-0.2); BASOPHIL % 1.1 % (0.0-2.0); EOSINOPHIL # 0.3 TH/MM3 (0-0.4); EOSINOPHIL % 3.3 % (0.0-4.0); HEMATOCRIT 29.3 % (35.0-46.0); HEMO FLAGS DIFF FINAL; LYMPH % 14.2 % (9.0-44.0); LYMPHOCYTE # 1.1 TH/MM3 (1.0-4.8); MEAN CORPUSCULAR HEMOGLOBIN 21.6 PG (27.0-34.0); MEAN CORPUSCULAR HGB CONC 30.8 % (32.0-36.0); MONO % 8.6 % (0.0-8.0); NEUT % 72.8 % (16.0-70.0); PLATELET COUNT 193 TH/MM3 (150-450); RED BLOOD COUNT 4.18 MIL/MM3 (4.00-5.30); RED CELL DISTRIBUTION WIDTH 17.4 % (11.6-17.2); WHITE BLOOD COUNT 7.7 TH/MM3 (4.0-11.0)
[2016-12-21] MEDS: AZITHROMYCIN 250 MG TAB PO SCH (08:22)
[2016-12-21] MEDS: DOCUSATE SODIUM 50 MG/SENNA 8.6 MG TAB PO SCH ×2 (08:23→21:22)
[2016-12-21] MEDS: FERROUS SULFATE 325 MG (65 MG ELEMENTAL IRON) TAB PO SCH ×2 (08:23→21:22)
[2016-12-21] MEDS: SODIUM CHLORIDE 0.9% FLUSH 10 ML FLUSH IV FLUSH SCH ×2 (08:24→21:22)
[2016-12-21] MEDS: CARVEDILOL 3.125 MG TAB PO SCH ×2 (08:24→21:22)
[2016-12-21 08:33] LABS: POTASSIUM 5.4 MEQ/L (3.5-5.1)
--- NOTE | 2016-12-21 09:22 | HHI.NPPN ---
Subjective History of Present Illness 66-year-old female with a past medical history of hypertension, diabetes mellitus, chronic anemia, history of back pain and chronic kidney disease, came to the hospital with complaint of nausea, vomiting, diarrhea and back pain. I was called to see the patient with a high BUN and creatinine. The patient was found to have BUN of 36 and creatinine of 3.2. Additional Remarks renal function is worse. Mild hyperkalemia is noted. Seen by Hematology for anemia. Review of Systems General Constitutional: Fatigue Respiratory Lungs: SOB, Cough, Sputum, Wheeze Cardiovascular Cardiac: [place] Objective Data Data 12/20/16 12/21/16 19:00 07:00 Intake Total 780 ml 600 ml Output Total 1500 ml 1200 ml Balance -720 ml -600 ml Intake Oral 780 ml 600 ml Output Urine Total 1500 ml 1200 ml # Bowel Movements 2 Vital Signs Date Time Temp Pulse Resp B/P Pulse Ox O2 Delivery O2 Flow Rate FiO2 12/21/16 08:00 96.8 97 19 157/72 91 12/21/16 04:00 97.7 86 18 161/74 96 12/21/16 00:00 98.2 92 18 140/52 96 12/20/16 20:00 100.3 99 20 142/62 92 12/20/16 15:59 98.1 96 19 141/75 95 12/20/16 12:00 96.2 90 18 131/61 98 -: 12/21/16 0642 12/21/16 0642 Physical Exam General Appearance: No Acute Distress, Comfortable Eyes Eye Exam: Pupils Equal Throat Throat Exam: Oral Mucosa [place] & Moist Neck Neck Exam: Neck Supple Pulmonary Resp Exam: Crackles, Rhonchi, Sputum, Decreased Bases, Diminished Breath Sounds Cardiology CV Exam: Regular, Normal Sinus Rhythm Gastrointestinal/Abdomen GI Exam: Soft, Non-Tender, Bowel Sounds Present, Distended Extremeties Extremities Exam: No Edema Neurologic Neuro Exam: Alert, Awake, Oriented Psychiatric Psych Exam: Appropriate Responses Assessment/Plan Assessment Summary: GRADY/Acute Renal Failure, Anemia of CKD, CHF, CKD Stage IV Problem List: (1) Bronchitis (2) Anemia (3) Stage 4 chronic kidney disease (4) Acute kidney failure Plan Renal function is worse. Most likely has advance chronic kidney disease due to Hypertensive nephrosclerosis or and/or Diabetic Nephropathy. Echo reveals diffuse hypokinesis, EF of 30-35 %. May have hemoglobinopathy. She may need dialysis during this admission. Cristian White MD Dec 21, 2016 09:22
--- NOTE | 2016-12-21 10:36 | PD.CARD.PN ---
Subjective Subjective Remarks ambulating independently with walker, alert in nad Objective Vital Signs / I&O Vital Signs Date Time Temp Pulse Resp B/P Pulse Ox O2 Delivery O2 Flow Rate FiO2 12/21/16 08:00 96.8 97 19 157/72 91 12/21/16 04:00 97.7 86 18 161/74 96 12/21/16 00:00 98.2 92 18 140/52 96 12/20/16 20:00 100.3 99 20 142/62 92 12/20/16 15:59 98.1 96 19 141/75 95 12/20/16 12:00 96.2 90 18 131/61 98 I/O 12/20/16 12/20/16 12/20/16 12/21/16 12/21/16 12/21/16 07:00 15:00 23:00 07:00 15:00 23:00 Intake Total 480 ml 780 ml 600 ml Output Total 1000 ml 500 ml 1600 ml 600 ml Balance -520 ml 280 ml -1000 ml -600 ml Intake Oral 480 ml 780 ml 600 ml Output Urine Total 1000 ml 500 ml 1600 ml 600 ml # Bowel Movements 0 2 Physical Exam GENERAL: SKIN: Warm and dry. HEAD: Normocephalic. EYES: No scleral icterus. No injection or drainage. NECK: Supple, trachea midline. No JVD or lymphadenopathy. CARDIOVASCULAR: Regular rate and rhythm without murmurs, gallops, or rubs. RESPIRATORY: Breath sounds equal bilaterally. No accessory muscle use. GASTROINTESTINAL: Abdomen soft, non-tender, nondistended. MUSCULOSKELETAL: No cyanosis, or edema. BACK: Nontender without obvious deformity. No CVA tenderness. Laboratory Laboratory Tests Test 12/21/16 06:42 White Blood Count 7.7 TH/MM3 Red Blood Count 4.18 MIL/MM3 Hemoglobin 9.0 GM/DL Hematocrit 29.3 % Mean Corpuscular Volume 70.0 FL Mean Corpuscular Hemoglobin 21.6 PG Mean Corpuscular Hemoglobin 30.8 % Concent Red Cell Distribution Width 17.4 % Platelet Count 193 TH/MM3 Mean Platelet Volume 9.5 FL Neutrophils (%) (Auto) 72.8 % Lymphocytes (%) (Auto) 14.2 % Monocytes (%) (Auto) 8.6 % Eosinophils (%) (Auto) 3.3 % Basophils (%) (Auto) 1.1 % Neutrophils # (Auto) 5.6 TH/MM3 Lymphocytes # (Auto) 1.1 TH/MM3 Monocytes # (Auto) 0.7 TH/MM3 Eosinophils # (Auto) 0.3 TH/MM3 Basophils # (Auto) 0.1 TH/MM3 CBC Comment DIFF FINAL Differential Comment Hematology Comments Sodium Level 136 MEQ/L Potassium Level 5.4 MEQ/L Chloride Level 109 MEQ/L Carbon Dioxide Level 16.0 MEQ/L Anion Gap 11 MEQ/L Blood Urea Nitrogen 37 MG/DL Creatinine 3.80 MG/DL Estimat Glomerular Filtration 14 ML/MIN Rate Random Glucose 108 MG/DL Calcium Level 8.8 MG/DL Assessment and Plan Problem List: (1) Acute kidney failure (2) Renal insufficiency (3) Stage 4 chronic kidney disease (4) CHF (congestive heart failure) (5) Cardiomyopathy Assessment and Plan 1.) Cardiomyopathy - euvolemic, continue coreg, nicole held due to arf/cri, fluid mangaement per Ankit Quinteros MD Dec 21, 2016 10:36
--- NOTE | 2016-12-21 11:44 | HHI.PR ---
Subjective Remarks Follow-up sepsis/stage IV chronic kidney disease/cardiomyopathy/chronic microcytic anemia 12/21/16-patient seen and examined, denies any significant shortness of breath or chest pain. Afebrile Objective Vitals Vital Signs Date Time Temp Pulse Resp B/P Pulse Ox O2 Delivery O2 Flow Rate FiO2 12/21/16 08:00 96.8 97 19 157/72 91 12/21/16 04:00 97.7 86 18 161/74 96 12/21/16 00:00 98.2 92 18 140/52 96 12/20/16 20:00 100.3 99 20 142/62 92 12/20/16 15:59 98.1 96 19 141/75 95 12/20/16 12:00 96.2 90 18 131/61 98 I/O 12/20/16 12/20/16 12/20/16 12/21/16 12/21/16 12/21/16 07:00 15:00 23:00 07:00 15:00 23:00 Intake Total 480 ml 780 ml 600 ml Output Total 1000 ml 500 ml 1600 ml 600 ml Balance -520 ml 280 ml -1000 ml -600 ml Intake Oral 480 ml 780 ml 600 ml Output Urine Total 1000 ml 500 ml 1600 ml 600 ml # Bowel Movements 0 2 Result Diagram: 12/21/16 0642 12/21/16 0642 Imaging Last Impressions Chest X-Ray 12/19/16 0000 Signed Impressions: Service Date/Time: Monday, December 19, 2016 15:40 - CONCLUSION: Bilateral diffuse interstitial opacity likely representing pulmonary edema, and small pleural effusions. Lawson Smith MD Renal Ultrasound 12/17/16 0000 Signed Impressions: Service Date/Time: Saturday, December 17, 2016 13:21 - CONCLUSION: 1. Sonographic findings consistent with medical renal disease. No obstruction. Kolby Hughes Jr., MD Objective Remarks GENERAL: NAD SKIN: Warm and dry. HEAD: Normocephalic. EYES: No scleral icterus. No injection or drainage. NECK: Supple, trachea midline. No JVD or lymphadenopathy. CARDIOVASCULAR: Regular rate and rhythm without murmurs, gallops, or rubs. RESPIRATORY: Breath sounds equal bilaterally. No accessory muscle use. GASTROINTESTINAL: Abdomen soft, non-tender, nondistended. MUSCULOSKELETAL: No cyanosis,+1 BLE edema. BACK: Nontender without obvious deformity. No CVA tenderness. A/P Problem List: (1) Bronchitis ICD Code: J40 Status: Acute (2) Acute kidney failure ICD Code: N17.9 Status: Acute (3) CHF (congestive heart failure) ICD Code: I50.9 Status: Acute (4) Anemia ICD Code: D64.9 Status: Acute (5) Cardiomyopathy ICD Code: I42.9 Status: Acute Assessment and Plan 66-year-old female with Sepsis. -Antibiotics (rocephin and azithro) -Teswilda garcia -ID consulted Acute on chronic kidney failure stage IV -Avoid nephrotoxic meds -Renal US with no obstruction. -Urine NA and creatine ordered, wnl -IVF hydration as ordered by nephrology -May consider hemodialysis during this hospitalization if no improvement Acute on chronic systolic CHF. EF 30-35%. Reduced ejection fraction. appears euvolemic however. - Continue Coreg. -Appreciate cardiology assistance. Cardiomyopathy CHAR[place]OTTE inhibitor on hold secondary to worsening renal function Acute on Chronic microcytic Anemia. Patient with history of thalassemia. No active bleeding Appreciate input from hematology pending hemoglobin electrophoresis Chronic pain -Cont home oxycodone DM, chronic -Accu checks AC/HS -Diabetic diet Hypokalemia. Mild. Fluids. Follow-up. DVT prophylaxis: Maikel Vergara MD Dec 21, 2016 11:44
[2016-12-21 11:51] VITALS: BP 136/72; PULSE 78; RESP 19; TEMP 97.8; O2SAT 93
[2016-12-21 16:00] VITALS: BP 139/71; PULSE 74; RESP 18; TEMP 98; O2SAT 92
[2016-12-21 20:00] VITALS: BP 142/63; PULSE 98; RESP 18; TEMP 101.1; O2SAT 93
[2016-12-21] MEDS: ACETAMINOPHEN 325 MG TAB PO PRN (21:22)
[2016-12-22] VITALS: BP 144/72; PULSE 55; RESP 18; TEMP 97.5; O2SAT 99
[2016-12-22] MEDS: cefTRIAXone INJ 2,000 MG in SODIUM CHLORIDE 0.9% INJ 100 ML IV SCH (02:34)
[2016-12-22 04:00] VITALS: BP 155/70; PULSE 98; RESP 18; TEMP 99.2; O2SAT 96
[2016-12-22] MEDS: INSULIN ASPART SUPPLEMENTAL SCALE SQ SCH ×4 (06:33→20:00)
[2016-12-22 07:57] LABS: BICARBONATE 20.6 MEQ/L (21.0-32.0); POTASSIUM 4.9 MEQ/L (3.5-5.1)
[2016-12-22 08:53] VITALS: BP 129/59; PULSE 94; RESP 20; TEMP 98.6; O2SAT 94
[2016-12-22] MEDS: SODIUM CHLORIDE 0.9% FLUSH 10 ML FLUSH IV FLUSH SCH ×2 (09:09→21:10)
[2016-12-22] MEDS: AZITHROMYCIN 250 MG TAB PO SCH (09:09)
[2016-12-22] MEDS: CARVEDILOL 3.125 MG TAB PO SCH ×2 (09:09→21:10)
[2016-12-22] MEDS: FERROUS SULFATE 325 MG (65 MG ELEMENTAL IRON) TAB PO SCH ×2 (09:09→21:09)
[2016-12-22] MEDS: DOCUSATE SODIUM 50 MG/SENNA 8.6 MG TAB PO SCH ×2 (09:09→21:10)
--- NOTE | 2016-12-22 10:27 | HHI.PR ---
Subjective Remarks Follow-up sepsis/stage IV chronic kidney disease/cardiomyopathy/chronic microcytic anemia 12/21/16-patient seen and examined, denies any significant shortness of breath or chest pain. Afebrile 12/22/16-patient seen and examined, stable and no significant shortness of breath. Good urine output Objective Vitals Vital Signs Date Time Temp Pulse Resp B/P Pulse Ox O2 Delivery O2 Flow Rate FiO2 12/22/16 08:53 98.6 94 20 129/59 94 12/22/16 04:00 99.2 98 18 155/70 96 12/22/16 00:00 97.5 55 18 144/72 99 12/21/16 20:00 101.1 98 18 142/63 93 12/21/16 16:00 98.0 74 18 139/71 92 12/21/16 11:51 97.8 78 19 136/72 93 I/O 12/21/16 12/21/16 12/21/16 12/22/16 12/22/16 12/22/16 06:59 14:59 22:59 06:59 14:59 22:59 Intake Total 480 ml 240 ml Output Total 600 ml 700 ml 60 ml 800 ml Balance -600 ml -220 ml -60 ml -560 ml Intake Oral 480 ml 240 ml Output Urine Total 600 ml 700 ml 60 ml 800 ml # Bowel Movements 1 Result Diagram: 12/21/16 0642 12/22/16 0701 Objective Remarks GENERAL: NAD SKIN: Warm and dry. HEAD: Normocephalic. EYES: No scleral icterus. No injection or drainage. NECK: Supple, trachea midline. No JVD or lymphadenopathy. CARDIOVASCULAR: Regular rate and rhythm without murmurs, gallops, or rubs. RESPIRATORY: Breath sounds equal bilaterally. No accessory muscle use. GASTROINTESTINAL: Abdomen soft, non-tender, nondistended. MUSCULOSKELETAL: No cyanosis,+1 BLE edema. BACK: Nontender without obvious deformity. No CVA tenderness. A/P Problem List: (1) Bronchitis ICD Code: J40 Status: Acute (2) Acute kidney failure ICD Code: N17.9 Status: Acute (3) CHF (congestive heart failure) ICD Code: I50.9 Status: Acute (4) Anemia ICD Code: D64.9 Status: Acute (5) Cardiomyopathy ICD Code: I42.9 Status: Acute Assessment and Plan 66-year-old female with Sepsis. Resolved -Antibiotics (rocephin and azithro) -Pauly garcia -ID consulted UTI-currently on Rocephin Acute on chronic kidney failure stage IV -Avoid nephrotoxic meds -Renal US with no obstruction. -Urine NA and creatine ordered, wnl -IVF hydration -May consider hemodialysis during this hospitalization if no improvement Acute on chronic systolic CHF. EF 30-35%. Reduced ejection fraction. appears euvolemic however. - Continue Coreg. CHARLOTTE inhibitor on hold secondary to worsening renal function -Appreciate cardiology assistance. Cardiomyopathy CHARLOTTE inhibitor on hold secondary to worsening renal function Acute on Chronic microcytic Anemia. Patient with history of thalassemia. No active bleeding Appreciate input from hematology pending hemoglobin electrophoresis Chronic pain -Cont home oxycodone DM2, chronic -Accu checks AC/HS -Diabetic diet Hypokalemia. Resolved DVT prophylaxis: Maikel Vergara MD Dec 22, 2016 10:27
[2016-12-22 12:00] VITALS: BP 133/63; PULSE 96; RESP 20; TEMP 98.5; O2SAT 90
--- NOTE | 2016-12-22 12:24 | PD.CARD.PN ---
Subjective Subjective Remarks alert in nad Objective Vital Signs / I&O Vital Signs Date Time Temp Pulse Resp B/P Pulse Ox O2 Delivery O2 Flow Rate FiO2 12/22/16 08:53 98.6 94 20 129/59 94 12/22/16 04:00 99.2 98 18 155/70 96 12/22/16 00:00 97.5 55 18 144/72 99 12/21/16 20:00 101.1 98 18 142/63 93 12/21/16 16:00 98.0 74 18 139/71 92 I/O 12/21/16 12/21/16 12/21/16 12/22/16 12/22/16 12/22/16 07:00 15:00 23:00 07:00 15:00 23:00 Intake Total 480 ml 240 ml Output Total 600 ml 700 ml 60 ml 800 ml Balance -600 ml -220 ml -60 ml -560 ml Intake Oral 480 ml 240 ml Output Urine Total 600 ml 700 ml 60 ml 800 ml # Bowel Movements 1 Physical Exam GENERAL: SKIN: Warm and dry. HEAD: Normocephalic. EYES: No scleral icterus. No injection or drainage. NECK: Supple, trachea midline. No JVD or lymphadenopathy. CARDIOVASCULAR: Regular rate and rhythm without murmurs, gallops, or rubs. RESPIRATORY: Breath sounds equal bilaterally. No accessory muscle use. GASTROINTESTINAL: Abdomen soft, non-tender, nondistended. MUSCULOSKELETAL: No cyanosis, or edema. BACK: Nontender without obvious deformity. No CVA tenderness. Laboratory Laboratory Tests Test 12/22/16 07:01 Sodium Level 140 MEQ/L Potassium Level 4.9 MEQ/L Chloride Level 109 MEQ/L Carbon Dioxide Level 20.6 MEQ/L Anion Gap 10 MEQ/L Blood Urea Nitrogen 38 MG/DL Creatinine 3.70 MG/DL Estimat Glomerular Filtration 15 ML/MIN Rate Random Glucose 186 MG/DL Calcium Level 8.1 MG/DL Phosphorus Level 3.7 MG/DL Albumin 2.4 GM/DL Assessment and Plan Problem List: (1) Acute kidney failure (2) Renal insufficiency (3) Stage 4 chronic kidney disease (4) CHF (congestive heart failure) (5) Cardiomyopathy Assessment and Plan 1.) Cardiomyopathy - euvolemic, continue coreg, nicole held due to arf/cri, fluid mangaement per Ankit Quinteros MD Dec 22, 2016 12:24
--- NOTE | 2016-12-22 14:27 | HHI.IDPN ---
Subjective Subjective Remarks 66 year old female admitted for evaluation of dizziness, SOB, fevers and some cough. C/S have been negative Still with fevers but frequency much improved Min cough Not SOB No N/V Constipated ESR 75 CRP 17.8 WBC normal Last CXR with juan luis effusions and opacity Mycoplasma Ab - old infection Legio and pneumo Ag negative Influenza negative Renal following for her CKD Heme evaluating her anemia Antibiotics Rocephin Zithromax Lines PIV no evidence of infection Past Medical History Hypertension Diabetes Chronic kidney disease Anemia Chronic pain syndrome Past Surgical History Laser treatment for diabetic retinopathy Lens implants after cataract surgery Allergies: Coded Allergies: Lisinopril (Unverified Allergy, Intermediate, Cough, 10/10/12) Objective . Vital Signs Date Time Temp Pulse Resp B/P Pulse Ox O2 Delivery O2 Flow Rate FiO2 12/22/16 12:43 18 12/22/16 12:00 98.5 96 20 133/63 90 12/22/16 08:53 98.6 94 20 129/59 94 12/22/16 04:00 99.2 98 18 155/70 96 12/22/16 00:00 97.5 55 18 144/72 99 12/21/16 20:00 101.1 98 18 142/63 93 12/21/16 16:00 98.0 74 18 139/71 92 12/21/16 12/21/16 12/22/16 15:00 23:00 07:00 Intake Total 480 ml 240 ml Output Total 700 ml 60 ml 800 ml Balance -220 ml -60 ml -560 ml Intake Oral 480 ml 240 ml Output Urine Total 700 ml 60 ml 800 ml # Bowel Movements 1 . Laboratory Tests Test 12/21/16 06:42 White Blood Count 7.7 TH/MM3 Red Blood Count 4.18 MIL/MM3 Hemoglobin 9.0 GM/DL Hematocrit 29.3 % Mean Corpuscular Volume 70.0 FL Mean Corpuscular Hemoglobin 21.6 PG Mean Corpuscular Hemoglobin 30.8 % Concent Red Cell Distribution Width 17.4 % Platelet Count 193 TH/MM3 Mean Platelet Volume 9.5 FL Neutrophils (%) (Auto) 72.8 % Lymphocytes (%) (Auto) 14.2 % Monocytes (%) (Auto) 8.6 % Eosinophils (%) (Auto) 3.3 % Basophils (%) (Auto) 1.1 % Neutrophils # (Auto) 5.6 TH/MM3 Lymphocytes # (Auto) 1.1 TH/MM3 Monocytes # (Auto) 0.7 TH/MM3 Eosinophils # (Auto) 0.3 TH/MM3 Basophils # (Auto) 0.1 TH/MM3 CBC Comment DIFF FINAL Differential Comment Hematology Comments Laboratory Tests Test 12/21/16 12/22/16 06:42 07:01 Sodium Level 136 MEQ/L 140 MEQ/L Potassium Level 5.4 MEQ/L 4.9 MEQ/L Chloride Level 109 MEQ/L 109 MEQ/L Carbon Dioxide Level 16.0 MEQ/L 20.6 MEQ/L Anion Gap 11 MEQ/L 10 MEQ/L Blood Urea Nitrogen 37 MG/DL 38 MG/DL Creatinine 3.80 MG/DL 3.70 MG/DL Estimat Glomerular Filtration 14 ML/MIN 15 ML/MIN Rate Random Glucose 108 MG/DL 186 MG/DL Calcium Level 8.8 MG/DL 8.1 MG/DL Phosphorus Level 3.7 MG/DL Albumin 2.4 GM/DL Imaging Last Impressions Chest X-Ray 12/19/16 0000 Signed Impressions: Service Date/Time: Monday, December 19, 2016 15:40 - CONCLUSION: Bilateral diffuse interstitial opacity likely representing pulmonary edema, and small pleural effusions. Lawson Smith MD Renal Ultrasound 12/17/16 0000 Signed Impressions: Service Date/Time: Saturday, December 17, 2016 13:21 - CONCLUSION: 1. Sonographic findings consistent with medical renal disease. No obstruction. Kolby Hughes Jr., MD Physical Exam GENERAL: awake and alert, not in respiratory distress. SKIN: Warm and dry. No generalized rash, no ecchymoses and no evidence of embolic lesions. HEAD: Atraumatic. Normocephalic. No temporal wasting, or tenderness. EYES: [place] conjunctiva. No petechia or hemorrhage. Pupils equal, round and reactive to light. Extraocular movements full and intact. No scleral icterus. No injection or drainage. EARS, NOSE AND THROAT: Nose without bleeding or purulent nasal discharge. No sinus tenderness. Mucous membranes pink and moist. Edentulous. No oral lesions noted. No exudate. No oral thrush. NECK: Trachea midline. Supple and not tender, no meningeal signs CARDIOVASCULAR: Regular rate and rhythm. No murmurs, rubs or gallops heard RESPIRATORY: Clear to auscultation. Breath sounds equal bilaterally. No wheezing or rhonchi. Decreased BS at bases ABDOMEN: Soft, non-tender, nondistended. Bowel sounds present and normoactive. No guarding. No rebound. No organomegaly. EXTREMITIES: No clubbing, cyanosis, or edema.No joint effusion, has good ROM. No calf tenderness. Well perfused and warm. NEUROLOGICAL: NOn-focal PSYCHIATRIC: Normal affect, calm and cooperative. LINE: No evidence of infection Assessment & Plan Remarks IMPRESSION Febrile illness, with cough as predominant complaint, CXR negative - ?CAP, ?viral syndrome - she does not look toxic appearing - ?other non-infectious etiology - all C/S negative - frequency of fevers better Renal insufficiency, has hx CKD, but her numbers worse compared to previous creatinine Anemia RECOMMENDATION Change Abx to Levaquin and give another 5 days Monitor temps and see if any further work-up indicated - patient looks clinically stable Monitor progress Asia Murray MD Dec 22, 2016 14:27
[2016-12-22 15:00] VITALS: BP 122/103; PULSE 94; RESP 20; TEMP 99.4; O2SAT 90
[2016-12-22] MEDS ORDERED: LEVOFLOXACIN 500 MG TAB PO ONE ×2 (15:00)
--- NOTE | 2016-12-22 15:35 | HHI.NPPN ---
Subjective History of Present Illness 66-year-old female with a past medical history of hypertension, diabetes mellitus, chronic anemia, history of back pain and chronic kidney disease, came to the hospital with complaint of nausea, vomiting, diarrhea and back pain. I was called to see the patient with a high BUN and creatinine. The patient was found to have BUN of 36 and creatinine of 3.2. Additional Remarks Patient is alert, feeling better, has lower back pain, breathing is better. Review of Systems General Constitutional: Fatigue Respiratory Lungs: SOB, Cough, Sputum, Wheeze Cardiovascular Cardiac: BARBOUR Objective Data Data 12/21/16 12/22/16 18:59 06:59 Intake Total 480 ml 240 ml Output Total 700 ml 860 ml Balance -220 ml -620 ml Intake Oral 480 ml 240 ml Output Urine Total 700 ml 860 ml # Bowel Movements 1 Vital Signs Date Time Temp Pulse Resp B/P Pulse Ox O2 Delivery O2 Flow Rate FiO2 12/22/16 12:43 18 12/22/16 12:00 98.5 96 20 133/63 90 12/22/16 08:53 98.6 94 20 129/59 94 12/22/16 04:00 99.2 98 18 155/70 96 12/22/16 00:00 97.5 55 18 144/72 99 12/21/16 20:00 101.1 98 18 142/63 93 12/21/16 16:00 98.0 74 18 139/71 92 -: 12/21/16 0642 12/22/16 0701 Physical Exam General Appearance: No Acute Distress, Comfortable Eyes Eye Exam: Pupils Equal Throat Throat Exam: Oral Mucosa [place] & Moist Neck Neck Exam: Neck Supple Pulmonary Resp Exam: Crackles, Rhonchi, Sputum, Decreased Bases, Diminished Breath Sounds Cardiology CV Exam: Regular, Normal Sinus Rhythm Gastrointestinal/Abdomen GI Exam: Soft, Non-Tender, Bowel Sounds Present, Distended Extremeties Extremities Exam: No Edema Neurologic Neuro Exam: Alert, Awake, Oriented Psychiatric Psych Exam: Appropriate Responses Assessment/Plan Assessment Summary: GRADY/Acute Renal Failure, Anemia of CKD, CHF, CKD Stage IV Problem List: (1) Bronchitis (2) Anemia (3) Stage 4 chronic kidney disease (4) Acute kidney failure Plan Patient is non oliguric, The Creatinine is almost same. Most likely has advance chronic kidney disease due to Hypertensive and/or Diabetic Nephropathy. Continue gentle hydration and antibiotics. Possibly has an element of GRADY. Now on PO Levaquin. Avoid Nephrotoxins. Svitlana Cook MD Dec 22, 2016 15:35
[2016-12-22 20:59] VITALS: BP 119/63; PULSE 97; RESP 20; TEMP 99.6; O2SAT 93
[2016-12-22] MEDS: BENZONATATE 100 MG CAP PO PRN (22:13)
[2016-12-23 00:13] VITALS: BP 130/69; PULSE 96; RESP 18; TEMP 99.2; O2SAT 92
[2016-12-23 04:06] VITALS: BP 144/68; PULSE 97; RESP 19; TEMP 99.6; O2SAT 94
[2016-12-23] MEDS: INSULIN ASPART SUPPLEMENTAL SCALE SQ SCH ×4 (06:33→19:35)
[2016-12-23 08:25] VITALS: BP 146/68; PULSE 95; RESP 20; TEMP 98.4; O2SAT 93
[2016-12-23] MEDS: DOCUSATE SODIUM 50 MG/SENNA 8.6 MG TAB PO SCH ×2 (09:14→22:28)
[2016-12-23] MEDS: CARVEDILOL 3.125 MG TAB PO SCH ×2 (09:14→22:28)
[2016-12-23] MEDS: SODIUM CHLORIDE 0.9% FLUSH 10 ML FLUSH IV FLUSH SCH ×2 (09:14→22:31)
[2016-12-23] MEDS: MAGNESIUM HYDROXIDE SUSP 30 ML CUP PO PRN (09:14)
[2016-12-23] MEDS: FERROUS SULFATE 325 MG (65 MG ELEMENTAL IRON) TAB PO SCH ×2 (09:14→22:31)
[2016-12-23 12:00] VITALS: BP 131/64; PULSE 99; RESP 18; TEMP 98.6; O2SAT 94
[2016-12-23] MEDS: BENZONATATE 100 MG CAP PO PRN (12:51)
--- NOTE | 2016-12-23 13:14 | HHI.IDPN ---
Subjective Subjective Remarks 66 year old female admitted for evaluation of dizziness, SOB, fevers and some cough. C/S have been negative Notes reviewed Temps better No new complaint Min cough Not SOB No N/V Constipated ESR 75 CRP 17.8 WBC normal Last CXR with juan luis effusions and opacity Mycoplasma Ab - old infection Legio and pneumo Ag negative Influenza negative Renal following for her CKD Heme evaluating her anemia Antibiotics Rocephin Zithromax Lines PIV no evidence of infection Past Medical History Hypertension Diabetes Chronic kidney disease Anemia Chronic pain syndrome Past Surgical History Laser treatment for diabetic retinopathy Lens implants after cataract surgery Allergies: Coded Allergies: Lisinopril (Unverified Allergy, Intermediate, Cough, 10/10/12) Objective . Vital Signs Date Time Temp Pulse Resp B/P Pulse Ox O2 Delivery O2 Flow Rate FiO2 12/23/16 12:00 98.6 99 18 131/64 94 12/23/16 08:25 98.4 95 20 146/68 93 12/23/16 04:06 99.6 97 19 144/68 94 12/23/16 00:13 99.2 96 18 130/69 92 12/22/16 20:59 99.6 97 20 119/63 93 12/22/16 15:00 99.4 94 20 122/103 90 12/22/16 12/22/16 12/23/16 15:00 23:00 07:00 # Voids 4 1 # Bowel Movements 1 0 . Laboratory Tests Test 12/22/16 07:01 Sodium Level 140 MEQ/L Potassium Level 4.9 MEQ/L Chloride Level 109 MEQ/L Carbon Dioxide Level 20.6 MEQ/L Anion Gap 10 MEQ/L Blood Urea Nitrogen 38 MG/DL Creatinine 3.70 MG/DL Estimat Glomerular Filtration 15 ML/MIN Rate Random Glucose 186 MG/DL Calcium Level 8.1 MG/DL Phosphorus Level 3.7 MG/DL Albumin 2.4 GM/DL Imaging Last Impressions Chest X-Ray 12/19/16 0000 Signed Impressions: Service Date/Time: Monday, December 19, 2016 15:40 - CONCLUSION: Bilateral diffuse interstitial opacity likely representing pulmonary edema, and small pleural effusions. Lawson Smith MD Renal Ultrasound 12/17/16 0000 Signed Impressions: Service Date/Time: Saturday, December 17, 2016 13:21 - CONCLUSION: 1. Sonographic findings consistent with medical renal disease. No obstruction. Kolby Hughes Jr., MD Physical Exam GENERAL: awake and alert, not in respiratory distress. SKIN: Warm and dry. No generalized rash, no ecchymoses and no evidence of embolic lesions. HEAD: Atraumatic. Normocephalic. No temporal wasting, or tenderness. EYES: [place] conjunctiva. No petechia or hemorrhage. Pupils equal, round and reactive to light. Extraocular movements full and intact. No scleral icterus. No injection or drainage. EARS, NOSE AND THROAT: Nose without bleeding or purulent nasal discharge. No sinus tenderness. Mucous membranes pink and moist. Edentulous. No oral lesions noted. No exudate. No oral thrush. NECK: Trachea midline. Supple and not tender, no meningeal signs CARDIOVASCULAR: Regular rate and rhythm. No murmurs, rubs or gallops heard RESPIRATORY: Clear to auscultation. Breath sounds equal bilaterally. No wheezing or rhonchi. Decreased BS at bases ABDOMEN: Soft, non-tender, nondistended. Bowel sounds present and normoactive. No guarding. No rebound. No organomegaly. EXTREMITIES: No clubbing, cyanosis, or edema.No joint effusion, has good ROM. No calf tenderness. Well perfused and warm. NEUROLOGICAL: NOn-focal PSYCHIATRIC: Normal affect, calm and cooperative. LINE: No evidence of infection Assessment & Plan Remarks IMPRESSION Febrile illness, with cough as predominant complaint, CXR negative - ?CAP, ?viral syndrome - she does not look toxic appearing - ?other non-infectious etiology - all C/S negative - fevers better Renal insufficiency, has hx CKD, but her numbers worse compared to previous creatinine Anemia RECOMMENDATION Continue Levaquin - end date ordered in [facility] Patient looks clinically stable, and if no further fevers, should be ok to D/C Temps seem to have resolved I will sign off Please reconsult if with any ID issue or question Asia Murray MD Dec 23, 2016 13:14
--- NOTE | 2016-12-23 13:25 | HHI.PR ---
Subjective Remarks Follow-up sepsis/stage IV chronic kidney disease/cardiomyopathy/chronic microcytic anemia 12/21/16-patient seen and examined, denies any significant shortness of breath or chest pain. Afebrile 12/22/16-patient seen and examined, stable and no significant shortness of breath. Good urine output 12/23/16-patient seen and examined; patient complains of abdominal bloating and constipation; Not much of an appetite Objective Vitals Vital Signs Date Time Temp Pulse Resp B/P Pulse Ox O2 Delivery O2 Flow Rate FiO2 12/23/16 12:00 98.6 99 18 131/64 94 12/23/16 08:25 98.4 95 20 146/68 93 12/23/16 04:06 99.6 97 19 144/68 94 12/23/16 00:13 99.2 96 18 130/69 92 12/22/16 20:59 99.6 97 20 119/63 93 12/22/16 15:00 99.4 94 20 122/103 90 I/O 12/22/16 12/22/16 12/22/16 12/23/16 12/23/16 12/23/16 07:00 15:00 23:00 07:00 15:00 23:00 Intake Total 240 ml Output Total 800 ml Balance -560 ml Intake Oral 240 ml Output Urine Total 800 ml # Voids 4 1 # Bowel Movements 1 0 Result Diagram: 12/21/16 0642 12/22/16 0701 Objective Remarks GENERAL: NAD SKIN: Warm and dry. HEAD: Normocephalic. EYES: No scleral icterus. No injection or drainage. NECK: Supple, trachea midline. No JVD or lymphadenopathy. CARDIOVASCULAR: Regular rate and rhythm without murmurs, gallops, or rubs. RESPIRATORY: Breath sounds equal bilaterally. No accessory muscle use. GASTROINTESTINAL: Abdomen soft, non-tender, nondistended. MUSCULOSKELETAL: No cyanosis,+1 BLE edema. BACK: Nontender without obvious deformity. No CVA tenderness. A/P Problem List: (1) Bronchitis ICD Code: J40 Status: Acute (2) Acute kidney failure ICD Code: N17.9 Status: Acute (3) CHF (congestive heart failure) ICD Code: I50.9 Status: Acute (4) Anemia ICD Code: D64.9 Status: Acute (5) Cardiomyopathy ICD Code: I42.9 Status: Acute Assessment and Plan 66-year-old female with Sepsis. Resolved -s/p Antibiotics (rocephin and azithro) -Pauly garcia -ID consulted UTI-s/p Rocephin and now on Levaquin Acute on chronic kidney failure stage IV -Avoid nephrotoxic meds -Renal US with no obstruction. -Urine NA and creatine ordered, wnl -IVF hydration Acute on chronic systolic CHF. EF 30-35%. Reduced ejection fraction. appears euvolemic however. - Continue Coreg. CHARLOTTE inhibitor on hold secondary to worsening renal function -Appreciate cardiology assistance. Cardiomyopathy CHARLOTTE inhibitor on hold secondary to worsening renal function Acute on Chronic microcytic Anemia. Patient with history of thalassemia. No active bleeding Appreciate input from hematology pending hemoglobin electrophoresis Chronic pain -Cont home oxycodone DM2, chronic -Accu checks AC/HS -Diabetic diet Hypokalemia. Resolved DVT prophylaxis: Maikel Vergara MD Dec 23, 2016 13:25
[2016-12-23 16:00] VITALS: BP 133/64; PULSE 95; RESP 22; TEMP 100.2; O2SAT 95
--- NOTE | 2016-12-23 16:24 | HHI.NPPN ---
Subjective History of Present Illness 66-year-old female with a past medical history of hypertension, diabetes mellitus, chronic anemia, history of back pain and chronic kidney disease, came to the hospital with complaint of nausea, vomiting, diarrhea and back pain. I was called to see the patient with a high BUN and creatinine. The patient was found to have BUN of 36 and creatinine of 3.2. Additional Remarks Patient is alert, has abd. distension and nausea, no vomiting. Review of Systems General Constitutional: Fatigue Respiratory Lungs: SOB, Cough, Sputum, Wheeze Cardiovascular Cardiac: BARBOUR Objective Data Data 12/22/16 12/23/16 18:59 06:59 # Voids 4 1 # Bowel Movements 1 0 Vital Signs Date Time Temp Pulse Resp B/P Pulse Ox O2 Delivery O2 Flow Rate FiO2 12/23/16 13:51 98 Blow By 2.00 12/23/16 12:00 98.6 99 18 131/64 94 12/23/16 08:25 98.4 95 20 146/68 93 12/23/16 04:06 99.6 97 19 144/68 94 12/23/16 00:13 99.2 96 18 130/69 92 12/22/16 20:59 99.6 97 20 119/63 93 -: 12/21/16 0642 12/22/16 0701 Physical Exam General Appearance: No Acute Distress, Comfortable Eyes Eye Exam: Pupils Equal Throat Throat Exam: Oral Mucosa [place] & Moist Neck Neck Exam: Neck Supple Pulmonary Resp Exam: Crackles, Rhonchi, Sputum, Decreased Bases, Diminished Breath Sounds Cardiology CV Exam: Regular, Normal Sinus Rhythm Gastrointestinal/Abdomen GI Exam: Soft, Non-Tender, Bowel Sounds Present, Distended Extremeties Extremities Exam: No Edema Neurologic Neuro Exam: Alert, Awake, Oriented Psychiatric Psych Exam: Appropriate Responses Assessment/Plan Assessment Summary: GRADY/Acute Renal Failure, Anemia of CKD, CHF, CKD Stage IV Problem List: (1) Bronchitis (2) Anemia (3) Stage 4 chronic kidney disease (4) Acute kidney failure Plan Patient is non oliguric, Most likely has advance chronic kidney disease due to Hypertensive and/or Diabetic Nephropathy. Continue gentle hydration and antibiotics. Possibly has an element of GRADY. Now on PO Levaquin. Avoid Nephrotoxins. No new BMP, will order for AM. Svitlana Cook MD Dec 23, 2016 16:24
--- NOTE | 2016-12-23 16:25 | PD.CARD.PN ---
Subjective Subjective Remarks c/o stomach distention and dyspnea Objective Vital Signs / I&O Vital Signs Date Time Temp Pulse Resp B/P Pulse Ox O2 Delivery O2 Flow Rate FiO2 12/23/16 13:51 98 Blow By 2.00 12/23/16 12:00 98.6 99 18 131/64 94 12/23/16 08:25 98.4 95 20 146/68 93 12/23/16 04:06 99.6 97 19 144/68 94 12/23/16 00:13 99.2 96 18 130/69 92 12/22/16 20:59 99.6 97 20 119/63 93 I/O 12/22/16 12/22/16 12/22/16 12/23/16 12/23/16 12/23/16 07:00 15:00 23:00 07:00 15:00 23:00 Intake Total 240 ml Output Total 800 ml Balance -560 ml Intake Oral 240 ml Output Urine Total 800 ml # Voids 4 1 # Bowel Movements 1 0 Physical Exam GENERAL: SKIN: Warm and dry. HEAD: Normocephalic. EYES: No scleral icterus. No injection or drainage. NECK: Supple, trachea midline. No JVD or lymphadenopathy. CARDIOVASCULAR: Regular rate and rhythm without murmurs, gallops, or rubs. RESPIRATORY: Breath sounds equal bilaterally. No accessory muscle use. GASTROINTESTINAL: Abdomen soft, non-tender, nondistended. MUSCULOSKELETAL: No cyanosis, or edema. BACK: Nontender without obvious deformity. No CVA tenderness. Assessment and Plan Problem List: (1) Acute kidney failure (2) Renal insufficiency (3) Stage 4 chronic kidney disease (4) CHF (congestive heart failure) (5) Cardiomyopathy Assessment and Plan 1.) Cardiomyopathy - euvolemic, continue coreg, nicole held due to arf/cri, fluid mangaement per Ankit Quinteros MD Dec 23, 2016 16:25
[2016-12-23] MEDS: guaiFENesin/DEXTROMETHORPHAN 200 MG/20 MG/10 ML CUP PO PRN (16:49)
[2016-12-23] MEDS: BENZONATATE 100 MG CAP PO SCH (16:49)
[2016-12-23 20:33] VITALS: BP 148/69; PULSE 99; RESP 18; TEMP 100.3; O2SAT 90
[2016-12-23] MEDS: ACETAMINOPHEN 325 MG TAB PO PRN (22:38)
[2016-12-23 23:54] LABS: C PNEUMO IGA <1:16 (()); C PNEUMO IGG <1:64 (()); C PNEUMO IGM <1:10 (())
[2016-12-24] VITALS (7 sets, daily range): BP systolic 127–141; BP diastolic 60–70; PULSE 80–95; RESP 16–22; TEMP 97.8–99.8; O2SAT 91–96
[2016-12-24] MEDS: INSULIN ASPART SUPPLEMENTAL SCALE SQ SCH ×4 (07:00→21:57)
[2016-12-24 08:23] LABS: AUTOMATED NEUTROPHIL # 5.4 TH/MM3 (1.8-7.7); BASOPHIL % 0.6 % (0.0-2.0); EOSINOPHIL # 0.4 TH/MM3 (0-0.4); HEMATOCRIT 26.6 % (35.0-46.0); HEMO FLAGS DIFF FINAL; LYMPHOCYTE # 0.9 TH/MM3 (1.0-4.8); MEAN CELL VOLUME 67.2 FL (80.0-100.0); MEAN CORPUSCULAR HEMOGLOBIN 21.1 PG (27.0-34.0); MEAN CORPUSCULAR HGB CONC 31.4 % (32.0-36.0); MONO % 9.6 % (0.0-8.0); NEUT % 72.8 % (16.0-70.0); PLATELET COUNT 306 TH/MM3 (150-450); RED BLOOD COUNT 3.96 MIL/MM3 (4.00-5.30); RED CELL DISTRIBUTION WIDTH 16.2 % (11.6-17.2); WHITE BLOOD COUNT 7.4 TH/MM3 (4.0-11.0)
[2016-12-24 08:54] LABS: BICARBONATE 22.9 MEQ/L (21.0-32.0); POTASSIUM 4.8 MEQ/L (3.5-5.1)
[2016-12-24] MEDS: BENZONATATE 100 MG CAP PO SCH ×3 (08:56→18:27)
[2016-12-24] MEDS: CARVEDILOL 3.125 MG TAB PO SCH ×2 (08:56→21:54)
[2016-12-24] MEDS: FERROUS SULFATE 325 MG (65 MG ELEMENTAL IRON) TAB PO SCH ×2 (08:56→21:05)
[2016-12-24] MEDS: DOCUSATE SODIUM 50 MG/SENNA 8.6 MG TAB PO SCH ×2 (08:57→21:05)
[2016-12-24] MEDS: SODIUM CHLORIDE 0.9% FLUSH 10 ML FLUSH IV FLUSH SCH ×2 (08:58→21:05)
--- NOTE | 2016-12-24 11:15 | HHI.NPPN ---
Subjective History of Present Illness 66-year-old female with a past medical history of hypertension, diabetes mellitus, chronic anemia, history of back pain and chronic kidney disease, came to the hospital with complaint of nausea, vomiting, diarrhea and back pain. I was called to see the patient with a high BUN and creatinine. The patient was found to have BUN of 36 and creatinine of 3.2. Additional Remarks Patient is alert, has abd. distension and nausea, no vomiting.Has low grade fever last night. Review of Systems General Constitutional: Fatigue Respiratory Lungs: SOB, Cough, Sputum, Wheeze Cardiovascular Cardiac: [place] Objective Data Data 12/23/16 12/24/16 19:00 07:00 Intake Total 960 ml Balance 960 ml Intake Oral 960 ml # Voids 3 # Bowel Movements 1 Vital Signs Date Time Temp Pulse Resp B/P Pulse Ox O2 Delivery O2 Flow Rate FiO2 12/24/16 08:59 89 93 12/24/16 08:00 97.9 89 20 130/61 91 12/24/16 05:34 97.8 80 16 127/70 96 12/24/16 00:06 99.3 94 16 128/60 92 12/23/16 20:33 100.3 99 18 148/69 90 12/23/16 16:00 100.2 95 22 133/64 95 12/23/16 13:51 98 Blow By 2.00 12/23/16 12:00 98.6 99 18 131/64 94 -: 12/24/16 0727 12/24/16 0727 Physical Exam General Appearance: No Acute Distress, Comfortable Eyes Eye Exam: Pupils Equal Throat Throat Exam: Oral Mucosa [place] & Moist Neck Neck Exam: Neck Supple Pulmonary Resp Exam: Crackles, Rhonchi, Sputum, Decreased Bases, Diminished Breath Sounds Cardiology CV Exam: Regular, Normal Sinus Rhythm Gastrointestinal/Abdomen GI Exam: Soft, Non-Tender, Bowel Sounds Present, Distended Extremeties Extremities Exam: No Edema Neurologic Neuro Exam: Alert, Awake, Oriented Psychiatric Psych Exam: Appropriate Responses Assessment/Plan Assessment Summary: GRADY/Acute Renal Failure, Anemia of CKD, CHF, CKD Stage IV Problem List: (1) Bronchitis (2) Anemia (3) Stage 4 chronic kidney disease (4) Acute kidney failure Plan Patient is non oliguric, Most likely has advance chronic kidney disease due to Hypertensive and/or Diabetic Nephropathy. Continue gentle hydration and antibiotics. Possibly has an element of GRADY. Now on PO Levaquin. Avoid Nephrotoxins. Creatinine remain same. Follow the urine out put and BMP. Svitlana Cook MD Dec 24, 2016 11:15
--- NOTE | 2016-12-24 11:32 | HHI.PR ---
Subjective Remarks Follow-up sepsis/stage IV chronic kidney disease/cardiomyopathy/chronic microcytic anemia 12/21/16-patient seen and examined, denies any significant shortness of breath or chest pain. Afebrile 12/22/16-patient seen and examined, stable and no significant shortness of breath. Good urine output 12/23/16-patient seen and examined; patient complains of abdominal bloating and constipation; Not much of an appetite 12/24/16-patient seen and examined, complains of some abdominal upset, denies any chest pain or shortness of breath. Appetite slightly improved. MAXIMUM TEMPERATURE 100.3 at 8:30 PM however currently afebrile Objective Vitals Vital Signs Date Time Temp Pulse Resp B/P Pulse Ox O2 Delivery O2 Flow Rate FiO2 12/24/16 08:59 89 93 12/24/16 08:00 97.9 89 20 130/61 91 12/24/16 05:34 97.8 80 16 127/70 96 12/24/16 00:06 99.3 94 16 128/60 92 12/23/16 20:33 100.3 99 18 148/69 90 12/23/16 16:00 100.2 95 22 133/64 95 12/23/16 13:51 98 Blow By 2.00 12/23/16 12:00 98.6 99 18 131/64 94 I/O 12/23/16 12/23/16 12/23/16 12/24/16 12/24/16 12/24/16 07:00 15:00 23:00 07:00 15:00 23:00 Intake Total 960 ml Balance 960 ml Intake Oral 960 ml # Voids 1 1 2 # Bowel Movements 0 1 Result Diagram: 12/24/1627 12/24/16726 Objective Remarks GENERAL: NAD SKIN: Warm and dry. HEAD: Normocephalic. EYES: No scleral icterus. No injection or drainage. NECK: Supple, trachea midline. No JVD or lymphadenopathy. CARDIOVASCULAR: Regular rate and rhythm without murmurs, gallops, or rubs. RESPIRATORY: Breath sounds equal bilaterally. No accessory muscle use. GASTROINTESTINAL: Abdomen soft, non-tender, nondistended. MUSCULOSKELETAL: No cyanosis,+1 BLE edema. BACK: Nontender without obvious deformity. No CVA tenderness. A/P Problem List: (1) Bronchitis ICD Code: J40 Status: Acute (2) Acute kidney failure ICD Code: N17.9 Status: Acute (3) CHF (congestive heart failure) ICD Code: I50.9 Status: Acute (4) Anemia ICD Code: D64.9 Status: Acute (5) Cardiomyopathy ICD Code: I42.9 Status: Acute Assessment and Plan 66-year-old female with Sepsis. Resolved -s/p Antibiotics (rocephin and azithro) and currently on by mouth Levaquin -Pauly garcia -ID consulted UTI-s/p Rocephin and now on Levaquin every 48H Acute on chronic kidney failure stage IV -Creatinine/2 worsening -Avoid nephrotoxic meds -Renal US with no obstruction. -Urine NA and creatine ordered, wnl -IVF hydration Acute on chronic systolic CHF. EF 30-35%. Reduced ejection fraction. appears euvolemic however. - Continue Coreg. [place] inhibitor on hold secondary to worsening renal function -Appreciate cardiology assistance. Cardiomyopathy [place] inhibitor on hold secondary to worsening renal function Acute on Chronic microcytic Anemia. Patient with history of thalassemia. No active bleeding Appreciate input from hematology pending hemoglobin electrophoresis Chronic pain -Cont home oxycodone DM2, chronic -Accu checks AC/HS -Diabetic diet Hypokalemia. Resolved DVT prophylaxis: Maikel Vergara MD Dec 24, 2016 11:32
[2016-12-24] MEDS: LEVOFLOXACIN 250 MG TAB PO SCH (13:18)
--- NOTE | 2016-12-24 15:17 | PD.CARD.PN ---
Subjective Subjective Remarks alert in nad Objective Vital Signs / I&O Vital Signs Date Time Temp Pulse Resp B/P Pulse Ox O2 Delivery O2 Flow Rate FiO2 12/24/16 12:00 99.4 88 20 127/65 91 12/24/16 09:10 93 Room Air 12/24/16 08:59 89 93 12/24/16 08:00 97.9 89 20 130/61 91 12/24/16 05:34 97.8 80 16 127/70 96 12/24/16 00:06 99.3 94 16 128/60 92 12/23/16 20:33 100.3 99 18 148/69 90 12/23/16 16:00 100.2 95 22 133/64 95 I/O 12/23/16 12/23/16 12/23/16 12/24/16 12/24/16 12/24/16 07:00 15:00 23:00 07:00 15:00 23:00 Intake Total 960 ml 180 ml Balance 960 ml 180 ml Intake Oral 960 ml 180 ml # Voids 1 1 2 4 # Bowel Movements 0 1 0 Physical Exam GENERAL: SKIN: Warm and dry. HEAD: Normocephalic. EYES: No scleral icterus. No injection or drainage. NECK: Supple, trachea midline. No JVD or lymphadenopathy. CARDIOVASCULAR: Regular rate and rhythm without murmurs, gallops, or rubs. RESPIRATORY: Breath sounds equal bilaterally. No accessory muscle use. GASTROINTESTINAL: Abdomen soft, non-tender, nondistended. MUSCULOSKELETAL: No cyanosis, or edema. BACK: Nontender without obvious deformity. No CVA tenderness. Laboratory Laboratory Tests Test 12/24/16 07:27 White Blood Count 7.4 TH/MM3 Red Blood Count 3.96 MIL/MM3 Hemoglobin 8.4 GM/DL Hematocrit 26.6 % Mean Corpuscular Volume 67.2 FL Mean Corpuscular Hemoglobin 21.1 PG Mean Corpuscular Hemoglobin 31.4 % Concent Red Cell Distribution Width 16.2 % Platelet Count 306 TH/MM3 Mean Platelet Volume 8.4 FL Neutrophils (%) (Auto) 72.8 % Lymphocytes (%) (Auto) 12.0 % Monocytes (%) (Auto) 9.6 % Eosinophils (%) (Auto) 5.0 % Basophils (%) (Auto) 0.6 % Neutrophils # (Auto) 5.4 TH/MM3 Lymphocytes # (Auto) 0.9 TH/MM3 Monocytes # (Auto) 0.7 TH/MM3 Eosinophils # (Auto) 0.4 TH/MM3 Basophils # (Auto) 0.0 TH/MM3 CBC Comment DIFF FINAL Differential Comment Sodium Level 138 MEQ/L Potassium Level 4.8 MEQ/L Chloride Level 109 MEQ/L Carbon Dioxide Level 22.9 MEQ/L Anion Gap 6 MEQ/L Blood Urea Nitrogen 42 MG/DL Creatinine 3.65 MG/DL Estimat Glomerular Filtration 15 ML/MIN Rate Random Glucose 161 MG/DL Calcium Level 8.4 MG/DL Assessment and Plan Problem List: (1) Acute kidney failure (2) Renal insufficiency (3) Stage 4 chronic kidney disease (4) CHF (congestive heart failure) (5) Cardiomyopathy Assessment and Plan 1.) Cardiomyopathy - euvolemic, continue coreg, nicole held due to arf/cri, fluid mangaement per Ankit Quinteros MD Dec 24, 2016 15:17
[2016-12-24 16:40] LABS: HEMOGLOBIN A 67.2 % (95.8-98.0); HEMOGLOBIN A2 4.3 % (2.0-3.3)
[2016-12-24] MEDS: guaiFENesin/DEXTROMETHORPHAN 200 MG/20 MG/10 ML CUP PO PRN (21:54)
[2016-12-25] VITALS: BP 134/64; PULSE 83; RESP 16; TEMP 98.3; O2SAT 93
[2016-12-25 04:00] VITALS: BP 150/70; PULSE 88; RESP 18; TEMP 97.9; O2SAT 93
[2016-12-25] MEDS: guaiFENesin/DEXTROMETHORPHAN 200 MG/20 MG/10 ML CUP PO PRN (06:27)
[2016-12-25] MEDS: INSULIN ASPART SUPPLEMENTAL SCALE SQ SCH ×4 (06:28→21:00)
[2016-12-25] MEDS: FERROUS SULFATE 325 MG (65 MG ELEMENTAL IRON) TAB PO SCH ×2 (07:59→21:13)
[2016-12-25] MEDS: BENZONATATE 100 MG CAP PO SCH ×3 (07:59→16:30)
[2016-12-25 08:00] VITALS: BP 146/70; PULSE 89; RESP 17; TEMP 98.4; O2SAT 94
[2016-12-25] MEDS: DOCUSATE SODIUM 50 MG/SENNA 8.6 MG TAB PO SCH ×2 (08:00→21:13)
[2016-12-25] MEDS: CARVEDILOL 3.125 MG TAB PO SCH ×2 (08:00→21:14)
[2016-12-25] MEDS: SODIUM CHLORIDE 0.9% FLUSH 10 ML FLUSH IV FLUSH SCH ×2 (08:00→21:00)
[2016-12-25 11:20] LABS: BICARBONATE 21.5 MEQ/L (21.0-32.0); POTASSIUM 5.1 MEQ/L (3.5-5.1)
[2016-12-25 12:00] VITALS: BP 123/60; PULSE 87; RESP 17; TEMP 98.2; O2SAT 92
--- NOTE | 2016-12-25 13:18 | HHI.PR ---
Subjective Remarks Follow-up sepsis/stage IV chronic kidney disease/cardiomyopathy/chronic microcytic anemia 12/21/16-patient seen and examined, denies any significant shortness of breath or chest pain. Afebrile 12/22/16-patient seen and examined, stable and no significant shortness of breath. Good urine output 12/23/16-patient seen and examined; patient complains of abdominal bloating and constipation; Not much of an appetite 12/24/16-patient seen and examined, complains of some abdominal upset, denies any chest pain or shortness of breath. Appetite slightly improved. MAXIMUM TEMPERATURE 100.3 at 8:30 PM however currently afebrile 12/25/16-patient seen and examined, reports some improvement of appetite. Positive for bowel movement. Case discussed with nephrology. Objective Vitals Vital Signs Date Time Temp Pulse Resp B/P Pulse Ox O2 Delivery O2 Flow Rate FiO2 12/25/16 12:00 98.2 87 17 123/60 92 12/25/16 08:00 98.4 89 17 146/70 94 12/25/16 08:00 94 2.00 12/25/16 04:00 97.9 88 18 150/70 93 12/25/16 00:00 98.3 83 16 134/64 93 12/24/16 21:00 Room Air 12/24/16 20:00 99.8 95 22 141/64 95 12/24/16 16:00 98.7 91 20 134/64 92 I/O 12/24/16 12/24/16 12/24/16 12/25/16 12/25/16 12/25/16 07:00 15:00 23:00 07:00 15:00 23:00 Intake Total 180 ml 635 ml Balance 180 ml 635 ml Intake Oral 180 ml IV Total 635 ml # Voids 2 4 4 # Bowel Movements 1 0 Result Diagram: 12/24/16 0727 12/25/16 1031 Objective Remarks GENERAL: NAD SKIN: Warm and dry. HEAD: Normocephalic. EYES: No scleral icterus. No injection or drainage. NECK: Supple, trachea midline. No JVD or lymphadenopathy. CARDIOVASCULAR: Regular rate and rhythm without murmurs, gallops, or rubs. RESPIRATORY: Breath sounds equal bilaterally. No accessory muscle use. GASTROINTESTINAL: Abdomen soft, non-tender, nondistended. MUSCULOSKELETAL: No cyanosis,+1 BLE edema. BACK: Nontender without obvious deformity. No CVA tenderness. A/P Problem List: (1) Bronchitis ICD Code: J40 Status: Acute (2) Acute kidney failure ICD Code: N17.9 Status: Acute (3) CHF (congestive heart failure) ICD Code: I50.9 Status: Acute (4) Anemia ICD Code: D64.9 Status: Acute (5) Cardiomyopathy ICD Code: I42.9 Status: Acute Assessment and Plan 66-year-old female with Sepsis. Resolved -s/p Antibiotics (rocephin and azithro) and currently on by mouth Levaquin -Tessalon pearls -ID consulted UTI- on Levaquin every 48H Acute on chronic kidney failure stage IV -Creatinine/2 worsening -Avoid nephrotoxic meds -Renal US with no obstruction. -Urine NA and creatine ordered, wnl -IVF hydration Acute on chronic systolic CHF. EF 30-35%. Reduced ejection fraction. appears euvolemic however. - Continue Coreg. CHARLOTTE inhibitor on hold secondary to worsening renal function -Appreciate cardiology assistance. Cardiomyopathy CHARLOTTE inhibitor on hold secondary to worsening renal function Acute on Chronic microcytic Anemia. Patient with history of thalassemia. No active bleeding Appreciate input from hematology pending hemoglobin electrophoresis Chronic pain -Cont home oxycodone DM2, chronic -Accu checks AC/HS -Diabetic diet Hypokalemia. Resolved DVT prophylaxis: SCDs Discharge Planning Not medically stable for discharge yet Maikel Vora MD Dec 25, 2016 13:18
--- NOTE | 2016-12-25 13:31 | PD.CARD.PN ---
Subjective Subjective Remarks alert in nad Objective Vital Signs / I&O Vital Signs Date Time Temp Pulse Resp B/P Pulse Ox O2 Delivery O2 Flow Rate FiO2 12/25/16 12:00 98.2 87 17 123/60 92 12/25/16 08:00 98.4 89 17 146/70 94 12/25/16 08:00 94 2.00 12/25/16 04:00 97.9 88 18 150/70 93 12/25/16 00:00 98.3 83 16 134/64 93 12/24/16 21:00 Room Air 12/24/16 20:00 99.8 95 22 141/64 95 12/24/16 16:00 98.7 91 20 134/64 92 I/O 12/24/16 12/24/16 12/24/16 12/25/16 12/25/16 12/25/16 07:00 15:00 23:00 07:00 15:00 23:00 Intake Total 180 ml 635 ml Balance 180 ml 635 ml Intake Oral 180 ml IV Total 635 ml # Voids 2 4 4 # Bowel Movements 1 0 Physical Exam GENERAL: SKIN: Warm and dry. HEAD: Normocephalic. EYES: No scleral icterus. No injection or drainage. NECK: Supple, trachea midline. No JVD or lymphadenopathy. CARDIOVASCULAR: Regular rate and rhythm without murmurs, gallops, or rubs. RESPIRATORY: Breath sounds equal bilaterally. No accessory muscle use. GASTROINTESTINAL: Abdomen soft, non-tender, nondistended. MUSCULOSKELETAL: No cyanosis, or edema. BACK: Nontender without obvious deformity. No CVA tenderness. Laboratory Laboratory Tests Test 12/25/16 10:31 Sodium Level 138 MEQ/L Potassium Level 5.1 MEQ/L Chloride Level 110 MEQ/L Carbon Dioxide Level 21.5 MEQ/L Anion Gap 7 MEQ/L Blood Urea Nitrogen 44 MG/DL Creatinine 3.62 MG/DL Estimat Glomerular Filtration 15 ML/MIN Rate Random Glucose 169 MG/DL Calcium Level 8.4 MG/DL Assessment and Plan Problem List: (1) Acute kidney failure (2) Renal insufficiency (3) Stage 4 chronic kidney disease (4) CHF (congestive heart failure) (5) Cardiomyopathy Assessment and Plan 1.) Cardiomyopathy - euvolemic, continue coreg, nicole held due to arf/cri, fluid mangaement per Dr Ankit Nguyen MD Dec 25, 2016 13:31
--- NOTE | 2016-12-25 15:14 | HHI.NPPN ---
Subjective History of Present Illness 66-year-old female with a past medical history of hypertension, diabetes mellitus, chronic anemia, history of back pain and chronic kidney disease, came to the hospital with complaint of nausea, vomiting, diarrhea and back pain. I was called to see the patient with a high BUN and creatinine. The patient was found to have BUN of 36 and creatinine of 3.2. Additional Remarks Patient is alert, nausea is better, now afebrile. Review of Systems General Constitutional: Fatigue Respiratory Lungs: SOB, Cough, Sputum, Wheeze Cardiovascular Cardiac: BARBOUR Objective Data Data 12/24/16 12/25/16 19:00 07:00 Intake Total 180 ml 635 ml Balance 180 ml 635 ml Intake Oral 180 ml IV Total 635 ml # Voids 4 4 # Bowel Movements 0 Vital Signs Date Time Temp Pulse Resp B/P Pulse Ox O2 Delivery O2 Flow Rate FiO2 12/25/16 12:00 98.2 87 17 123/60 92 12/25/16 08:00 98.4 89 17 146/70 94 12/25/16 08:00 94 2.00 12/25/16 04:00 97.9 88 18 150/70 93 12/25/16 00:00 98.3 83 16 134/64 93 12/24/16 21:00 Room Air 12/24/16 20:00 99.8 95 22 141/64 95 12/24/16 16:00 98.7 91 20 134/64 92 -: 12/24/16 0727 12/25/16 1031 Physical Exam General Appearance: No Acute Distress, Comfortable Eyes Eye Exam: Pupils Equal Throat Throat Exam: Oral Mucosa [place] & Moist Neck Neck Exam: Neck Supple Pulmonary Resp Exam: Crackles, Rhonchi, Sputum, Decreased Bases, Diminished Breath Sounds Cardiology CV Exam: Regular, Normal Sinus Rhythm Gastrointestinal/Abdomen GI Exam: Soft, Non-Tender, Bowel Sounds Present, Distended Extremeties Extremities Exam: No Edema Neurologic Neuro Exam: Alert, Awake, Oriented Psychiatric Psych Exam: Appropriate Responses Assessment/Plan Assessment Summary: GRADY/Acute Renal Failure, Anemia of CKD, CHF, CKD Stage IV Problem List: (1) Bronchitis (2) Anemia (3) Stage 4 chronic kidney disease (4) Acute kidney failure Plan Patient is non oliguric, Most likely has advance chronic kidney disease due to Hypertensive and/or Diabetic Nephropathy. Continue gentle hydration and antibiotics. Possibly has an element of GRADY. Now on PO Levaquin. Avoid Nephrotoxins. Creatinine remain same. Has advance renal disease, if D/C, will need follow up in 2 weeks. Svitlana Cook MD Dec 25, 2016 15:14
[2016-12-25 16:00] VITALS: BP 136/63; PULSE 88; RESP 17; TEMP 98.6; O2SAT 97
[2016-12-25 20:40] VITALS: BP 147/65; PULSE 74; RESP 19; TEMP 99.7; O2SAT 95
[2016-12-26] VITALS (7 sets, daily range): BP systolic 121–154; BP diastolic 58–74; PULSE 80–91; RESP 16–20; TEMP 97–98.9; O2SAT 91–96
[2016-12-26] MEDS: guaiFENesin/DEXTROMETHORPHAN 200 MG/20 MG/10 ML CUP PO PRN (02:11)
[2016-12-26] MEDS: MAGNESIUM HYDROXIDE SUSP 30 ML CUP PO PRN (06:45)
[2016-12-26] MEDS: INSULIN ASPART SUPPLEMENTAL SCALE SQ SCH ×4 (06:46→20:44)
[2016-12-26] MEDS: BENZONATATE 100 MG CAP PO SCH ×3 (09:18→18:28)
[2016-12-26] MEDS: DOCUSATE SODIUM 50 MG/SENNA 8.6 MG TAB PO SCH ×2 (09:18→20:40)
[2016-12-26] MEDS: SODIUM CHLORIDE 0.9% FLUSH 10 ML FLUSH IV FLUSH SCH ×2 (09:18→20:41)
[2016-12-26] MEDS: FERROUS SULFATE 325 MG (65 MG ELEMENTAL IRON) TAB PO SCH ×2 (09:18→20:40)
[2016-12-26] MEDS: CARVEDILOL 3.125 MG TAB PO SCH ×2 (09:18→20:40)
--- NOTE | 2016-12-26 09:26 | PD.CARD.PN ---
Subjective Subjective Remarks alert in nad Objective Vital Signs / I&O Vital Signs Date Time Temp Pulse Resp B/P Pulse Ox O2 Delivery O2 Flow Rate FiO2 12/26/16 09:18 91 16 154/74 12/26/16 08:00 98.5 89 20 140/66 94 12/26/16 05:00 97.0 90 17 141/67 93 12/26/16 00:30 98.9 80 18 145/62 96 12/25/16 20:40 99.7 74 19 147/65 95 12/25/16 16:00 98.6 88 17 136/63 97 12/25/16 12:00 98.2 87 17 123/60 92 I/O 12/25/16 12/25/16 12/25/16 12/26/16 12/26/16 12/26/16 07:00 15:00 23:00 07:00 15:00 23:00 Intake Total 635 ml 480 ml 300 ml Balance 635 ml 480 ml 300 ml Intake Oral 480 ml 300 ml IV Total 635 ml # Voids 3 1 # Bowel Movements 1 0 Physical Exam GENERAL: SKIN: Warm and dry. HEAD: Normocephalic. EYES: No scleral icterus. No injection or drainage. NECK: Supple, trachea midline. No JVD or lymphadenopathy. CARDIOVASCULAR: Regular rate and rhythm without murmurs, gallops, or rubs. RESPIRATORY: Breath sounds equal bilaterally. No accessory muscle use. GASTROINTESTINAL: Abdomen soft, non-tender, nondistended. MUSCULOSKELETAL: No cyanosis, or edema. BACK: Nontender without obvious deformity. No CVA tenderness. Laboratory Laboratory Tests Test 12/25/16 10:31 Sodium Level 138 MEQ/L Potassium Level 5.1 MEQ/L Chloride Level 110 MEQ/L Carbon Dioxide Level 21.5 MEQ/L Anion Gap 7 MEQ/L Blood Urea Nitrogen 44 MG/DL Creatinine 3.62 MG/DL Estimat Glomerular Filtration 15 ML/MIN Rate Random Glucose 169 MG/DL Calcium Level 8.4 MG/DL Assessment and Plan Problem List: (1) Acute kidney failure (2) Renal insufficiency (3) Stage 4 chronic kidney disease (4) CHF (congestive heart failure) (5) Cardiomyopathy Assessment and Plan 1.) Cardiomyopathy - euvolemic, continue coreg, nicole held due to arf/cri, fluid mangaement per Ankit Quinteros MD Dec 26, 2016 09:26
--- NOTE | 2016-12-26 10:48 | HHI.PR ---
Subjective Remarks Follow-up sepsis/stage IV chronic kidney disease/cardiomyopathy/chronic microcytic anemia 12/21/16-patient seen and examined, denies any significant shortness of breath or chest pain. Afebrile 12/22/16-patient seen and examined, stable and no significant shortness of breath. Good urine output 12/23/16-patient seen and examined; patient complains of abdominal bloating and constipation; Not much of an appetite 12/24/16-patient seen and examined, complains of some abdominal upset, denies any chest pain or shortness of breath. Appetite slightly improved. MAXIMUM TEMPERATURE 100.3 at 8:30 PM however currently afebrile 12/25/16-patient seen and examined, reports some improvement of appetite. Positive for bowel movement. Case discussed with nephrology. 12/26/16-patient seen and examined; complains of constipation this morning and appetite okay. Objective Vitals Vital Signs Date Time Temp Pulse Resp B/P Pulse Ox O2 Delivery O2 Flow Rate FiO2 12/26/16 09:18 91 16 154/74 12/26/16 08:00 98.5 89 20 140/66 94 12/26/16 05:00 97.0 90 17 141/67 93 12/26/16 00:30 98.9 80 18 145/62 96 12/25/16 20:40 99.7 74 19 147/65 95 12/25/16 16:00 98.6 88 17 136/63 97 12/25/16 12:00 98.2 87 17 123/60 92 I/O 12/25/16 12/25/16 12/25/16 12/26/16 12/26/16 12/26/16 07:00 15:00 23:00 07:00 15:00 23:00 Intake Total 635 ml 480 ml 300 ml Balance 635 ml 480 ml 300 ml Intake Oral 480 ml 300 ml IV Total 635 ml # Voids 3 1 # Bowel Movements 1 0 Result Diagram: 12/24/16 0727 12/25/16 1031 Objective Remarks GENERAL: NAD SKIN: Warm and dry. HEAD: Normocephalic. EYES: No scleral icterus. No injection or drainage. NECK: Supple, trachea midline. No JVD or lymphadenopathy. CARDIOVASCULAR: Regular rate and rhythm without murmurs, gallops, or rubs. RESPIRATORY: Breath sounds equal bilaterally. No accessory muscle use. GASTROINTESTINAL: Abdomen soft, non-tender, nondistended. MUSCULOSKELETAL: No cyanosis,+1 BLE edema. BACK: Nontender without obvious deformity. No CVA tenderness. Procedures none A/P Problem List: (1) Bronchitis ICD Code: J40 Status: Acute (2) Acute kidney failure ICD Code: N17.9 Status: Acute (3) CHF (congestive heart failure) ICD Code: I50.9 Status: Chronic (4) Anemia ICD Code: D64.9 Status: Acute (5) Cardiomyopathy ICD Code: I42.9 Status: Acute Assessment and Plan 66-year-old female with Sepsis. Resolved -s/p Antibiotics (rocephin and azithro) and currently on by mouth Levaquin until 12/27/16 -Pauly garcia -ID consulted UTI- on Levaquin every 48H until 12/27/16 Acute on chronic kidney failure stage IV -Creatinine/2 worsening -Avoid nephrotoxic meds -Renal US with no obstruction. -Urine NA and creatine ordered, wnl -IVF hydration Acute on chronic systolic CHF. EF 30-35%. Reduced ejection fraction. appears euvolemic however. - Continue Coreg. CHARLOTTE inhibitor on hold secondary to worsening renal function -Appreciate cardiology assistance. Cardiomyopathy CHARLOTTE inhibitor on hold secondary to worsening renal function Acute on Chronic microcytic Anemia. Patient with history of thalassemia. No active bleeding Appreciate input from hematology pending hemoglobin electrophoresis Chronic pain -Cont home oxycodone DM2, chronic -Accu checks AC/HS -Diabetic diet Constipation: We'll give magnesium citrate 1 now Hypokalemia. Resolved DVT prophylaxis: SCDs Discharge Planning Not medically stable for discharge yet Maikel Vora MD Dec 26, 2016 10:48
--- NOTE | 2016-12-26 11:07 | HHI.NPPN ---
Subjective History of Present Illness 66-year-old female with a past medical history of hypertension, diabetes mellitus, chronic anemia, history of back pain and chronic kidney disease, came to the hospital with complaint of nausea, vomiting, diarrhea and back pain. I was called to see the patient with a high BUN and creatinine. The patient was found to have BUN of 36 and creatinine of 3.2. Additional Remarks Patient is alert, sitting on chair, complain of constipation. Review of Systems General Constitutional: Fatigue Respiratory Lungs: SOB, Cough, Sputum, Wheeze Cardiovascular Cardiac: BARBOUR Objective Data Data 12/25/16 12/26/16 18:59 06:59 Intake Total 480 ml 300 ml Balance 480 ml 300 ml Intake Oral 480 ml 300 ml # Voids 3 1 # Bowel Movements 1 0 Vital Signs Date Time Temp Pulse Resp B/P Pulse Ox O2 Delivery O2 Flow Rate FiO2 12/26/16 09:18 91 16 154/74 12/26/16 08:00 98.5 89 20 140/66 94 12/26/16 05:00 97.0 90 17 141/67 93 12/26/16 00:30 98.9 80 18 145/62 96 12/25/16 20:40 99.7 74 19 147/65 95 12/25/16 16:00 98.6 88 17 136/63 97 12/25/16 12:00 98.2 87 17 123/60 92 -: 12/24/16 0727 12/25/16 1031 Physical Exam General Appearance: No Acute Distress, Comfortable Eyes Eye Exam: Pupils Equal Throat Throat Exam: Oral Mucosa [place] & Moist Neck Neck Exam: Neck Supple Pulmonary Resp Exam: Crackles, Rhonchi, Sputum, Decreased Bases, Diminished Breath Sounds Cardiology CV Exam: Regular, Normal Sinus Rhythm Gastrointestinal/Abdomen GI Exam: Soft, Non-Tender, Bowel Sounds Present, Distended Extremeties Extremities Exam: No Edema Neurologic Neuro Exam: Alert, Awake, Oriented Psychiatric Psych Exam: Appropriate Responses Assessment/Plan Assessment Summary: GRADY/Acute Renal Failure, Anemia of CKD, CHF, CKD Stage IV Problem List: (1) Bronchitis (2) Anemia (3) Stage 4 chronic kidney disease (4) Acute kidney failure Plan Patient is non oliguric, Most likely has advance chronic kidney disease due to Hypertensive and/or Diabetic Nephropathy. Continue gentle hydration and antibiotics. Possibly has an element of GRADY. Now on PO Levaquin. Avoid Nephrotoxins. No new BMP, has advance renal disease. Given treatment for constipation. Svitlana Cook MD Dec 26, 2016 11:07
--- NOTE | 2016-12-26 12:31 | PD.ONC.PN ---
Subjective Subjective Remarks Patient seen at 10AM Afebrile overnight. Patient complaining of nausea since last night. She has not had a bowel movement yet today. Objective Data Date Time Temp Pulse Resp B/P Pulse Ox O2 Delivery O2 Flow Rate FiO2 12/26/16 09:18 91 16 154/74 12/26/16 08:00 98.5 89 20 140/66 94 12/26/16 05:00 97.0 90 17 141/67 93 12/26/16 00:30 98.9 80 18 145/62 96 12/25/16 20:40 99.7 74 19 147/65 95 12/25/16 16:00 98.6 88 17 136/63 97 12/26/16 12/26/16 12/26/16 07:00 15:00 23:00 Intake Total 300 ml Balance 300 ml Result Diagram: 12/24/16 0727 12/25/16 1031 Administered Medications Medications (Trade) Dose Ordered Sig/Lo Route PRN Reason Start Time Stop Time Status Last Admin Dose Admin Sodium Chloride (NS Flush) 2 ml BID IV FLUSH 12/17/16 21:00 12/26/16 09:18 Ondansetron HCl (Zofran Inj) 4 mg Q6H PRN IVP NAUSEA OR VOMITING 12/17/16 12:45 12/26/16 09:49 Senna/Docusate Sodium (Terese-Colace) 1 tab BID PO 12/17/16 21:00 12/26/16 09:18 Magnesium Hydroxide (Milk Of Magnesia Liq) 30 ml Q12H PRN PO MILD - MODERATE CONSTIPATION 12/17/16 12:45 12/26/16 06:45 Sennosides (Senokot) 17.2 mg Q12H PRN PO MODERATE - SEVERE CONSTIPATION 12/17/16 12:45 12/20/16 21:55 Bisacodyl (Dulcolax Supp) 10 mg DAILY PRN RECTAL SEVERE CONSITIPATION 12/17/16 12:45 12/23/16 22:28 Amlodipine Besylate (Norvasc) 10 mg DAILY PO 12/18/16 09:00 12/26/16 09:18 Oxycodone HCl (Roxicodone) 5 mg Q6H PRN PO PAIN 1-10 12/17/16 14:15 12/25/16 16:30 Acetaminophen (Tylenol) 650 mg Q4H PRN PO FEVER 12/18/16 01:30 12/23/16 22:38 Ferrous Sulfate (Ferrous Sulfate) 325 mg BID PO 12/18/16 11:15 12/26/16 09:18 Carvedilol (Coreg) 3.125 mg Q12HR PO 12/18/16 21:00 12/26/16 09:18 Levofloxacin (Levaquin) 250 mg Q48H PO 12/24/16 15:00 12/24/16 13:18 Benzonatate (Tessalon) 100 mg TID PO 12/23/16 18:00 12/26/16 09:18 Guaifenesin/ Dextromethorphan (Robitussin Dm 200-20 Mg/10 ml Liq) 10 ml Q4H PRN PO COUGH 12/23/16 13:15 12/26/16 02:11 Objective Remarks GENERAL: Middle aged female, sitting up in chair next to bed. SKIN: Warm and dry. HEAD: Normocephalic. EYES: No injection or drainage. NECK: Supple, trachea midline. CARDIOVASCULAR: Regular rate and rhythm RESPIRATORY: Breath sounds equal bilaterally. No accessory muscle use. GASTROINTESTINAL: Abdomen soft, non-tender, nondistended. EXTREMITIES: No cyanosis NEUROLOGICAL: No obvious focal deficit. Awake, alert, and oriented x3. Assessment/Plan Assessment 66y/o female with severe microcytic anemia associated with renal failure. h/o Diabetes. Chronic kidney insufficiency secondary to diabetes. Diabetic retinal detachment. Hypertension. History of monoclonal myopathy (though the most recent serum protein electrophoresis from October 2016 did not identify any) Chronic microcytic anemia. Plan 1. Microcytic anemia: due to chronic renal insufficiency, patient also has sickle thalassemia trait. will give Epogen 20K units today and arrange follow up in clinic. 2. fs faxed to new patient referrals for follow up. will give regular Epogen shots in clinic and monitor blood counts. Brigette Hughes Dec 26, 2016 12:31
[2016-12-26] MEDS ORDERED: MAGNESIUM CITRATE SOLN 300 ML BTL PO ONE (13:00)
[2016-12-26 13:38] LABS: AUTOMATED NEUTROPHIL # 4.9 TH/MM3 (1.8-7.7); BASOPHIL # 0.1 TH/MM3 (0-0.2); BASOPHIL % 0.7 % (0.0-2.0); EOSINOPHIL # 0.4 TH/MM3 (0-0.4); HEMATOCRIT 27.6 % (35.0-46.0); HEMO FLAGS DIFF FINAL; LYMPHOCYTE # 1.3 TH/MM3 (1.0-4.8); MEAN CELL VOLUME 67.8 FL (80.0-100.0); MEAN CORPUSCULAR HEMOGLOBIN 20.6 PG (27.0-34.0); MEAN CORPUSCULAR HGB CONC 30.4 % (32.0-36.0); MONO % 9.7 % (0.0-8.0); NEUT % 66.6 % (16.0-70.0); PLATELET COUNT 382 TH/MM3 (150-450); RED BLOOD COUNT 4.07 MIL/MM3 (4.00-5.30); RED CELL DISTRIBUTION WIDTH 16.6 % (11.6-17.2); WHITE BLOOD COUNT 7.4 TH/MM3 (4.0-11.0)
[2016-12-26 14:12] LABS: ANION GAP 11 MEQ/L (5-15); AST (GOT) 17 U/L (15-37); BLOOD UREA NITROGEN 44 MG/DL (7-18); CHLORIDE 108 MEQ/L (98-107); GLOMERULAR FILTRATION RATE 16 ML/MIN (>89); POTASSIUM 5.5 MEQ/L (3.5-5.1); SODIUM (NA) 140 MEQ/L (136-145)
[2016-12-26 14:13] LABS: ALT (GPT) 32 U/L (10-53)
[2016-12-26 14:15] LABS: ALKALINE PHOSPHATASE 119 U/L (45-117); TOTAL BILIRUBIN ADULT 0.2 MG/DL (0.2-1.0)
[2016-12-26] MEDS: LEVOFLOXACIN 250 MG TAB PO SCH (15:00)
[2016-12-26] MEDS ORDERED: SODIUM POLYSTYRENE SULFONATE SUSP 15 GM/60 ML CUP PO ONE (15:15)
[2016-12-26] MEDS ORDERED: EPOETIN ALFA 20,000 UNITS/ML VIAL SQ ONE (15:30)
[2016-12-27] VITALS: BP 134/63; PULSE 89; RESP 18; TEMP 98.8; O2SAT 91
[2016-12-27 06:40] VITALS: BP 122/58; PULSE 85; RESP 18; TEMP 99; O2SAT 96
[2016-12-27] MEDS: INSULIN ASPART SUPPLEMENTAL SCALE SQ SCH ×4 (06:44→21:15)
[2016-12-27 08:22] VITALS: BP 131/69; PULSE 84; RESP 18; TEMP 97.8; O2SAT 92
[2016-12-27] MEDS: DOCUSATE SODIUM 50 MG/SENNA 8.6 MG TAB PO SCH ×2 (08:53→20:37)
[2016-12-27] MEDS: FERROUS SULFATE 325 MG (65 MG ELEMENTAL IRON) TAB PO SCH ×2 (08:53→20:37)
[2016-12-27] MEDS: BENZONATATE 100 MG CAP PO SCH ×3 (08:53→17:52)
[2016-12-27] MEDS: CARVEDILOL 3.125 MG TAB PO SCH ×2 (08:53→20:37)
[2016-12-27] MEDS: guaiFENesin/DEXTROMETHORPHAN 200 MG/20 MG/10 ML CUP PO PRN ×2 (08:53→20:45)
[2016-12-27] MEDS: SODIUM CHLORIDE 0.9% FLUSH 10 ML FLUSH IV FLUSH SCH ×2 (08:57→20:39)
--- NOTE | 2016-12-27 10:08 | PD.CARD.PN ---
Subjective Subjective Remarks alert in nad Objective Vital Signs / I&O Vital Signs Date Time Temp Pulse Resp B/P Pulse Ox O2 Delivery O2 Flow Rate FiO2 12/27/16 08:22 97.8 84 18 131/69 92 12/27/16 06:40 99.0 85 18 122/58 96 12/27/16 00:00 98.8 89 18 134/63 91 12/26/16 20:00 98.3 90 18 138/64 92 12/26/16 16:00 97.2 89 20 121/58 91 12/26/16 14:36 16 12/26/16 12:00 98.7 89 20 124/60 91 I/O 12/26/16 12/26/16 12/26/16 12/27/16 12/27/16 12/27/16 07:00 15:00 23:00 07:00 15:00 23:00 Intake Total 300 ml 1320 ml Balance 300 ml 1320 ml Intake Oral 300 ml 1320 ml # Voids 1 9 2 1 # Bowel Movements 0 0 0 0 Physical Exam GENERAL: SKIN: Warm and dry. HEAD: Normocephalic. EYES: No scleral icterus. No injection or drainage. NECK: Supple, trachea midline. No JVD or lymphadenopathy. CARDIOVASCULAR: Regular rate and rhythm without murmurs, gallops, or rubs. RESPIRATORY: Breath sounds equal bilaterally. No accessory muscle use. GASTROINTESTINAL: Abdomen soft, non-tender, nondistended. MUSCULOSKELETAL: No cyanosis, or edema. BACK: Nontender without obvious deformity. No CVA tenderness. Laboratory Laboratory Tests Test 12/26/16 13:17 White Blood Count 7.4 TH/MM3 Red Blood Count 4.07 MIL/MM3 Hemoglobin 8.4 GM/DL Hematocrit 27.6 % Mean Corpuscular Volume 67.8 FL Mean Corpuscular Hemoglobin 20.6 PG Mean Corpuscular Hemoglobin 30.4 % Concent Red Cell Distribution Width 16.6 % Platelet Count 382 TH/MM3 Mean Platelet Volume 7.7 FL Neutrophils (%) (Auto) 66.6 % Lymphocytes (%) (Auto) 17.0 % Monocytes (%) (Auto) 9.7 % Eosinophils (%) (Auto) 6.0 % Basophils (%) (Auto) 0.7 % Neutrophils # (Auto) 4.9 TH/MM3 Lymphocytes # (Auto) 1.3 TH/MM3 Monocytes # (Auto) 0.7 TH/MM3 Eosinophils # (Auto) 0.4 TH/MM3 Basophils # (Auto) 0.1 TH/MM3 CBC Comment DIFF FINAL Differential Comment Sodium Level 140 MEQ/L Potassium Level 5.5 MEQ/L Chloride Level 108 MEQ/L Carbon Dioxide Level 21.0 MEQ/L Anion Gap 11 MEQ/L Blood Urea Nitrogen 44 MG/DL Creatinine 3.41 MG/DL Estimat Glomerular Filtration 16 ML/MIN Rate Random Glucose 167 MG/DL Calcium Level 7.9 MG/DL Total Bilirubin 0.2 MG/DL Aspartate Amino Transf 17 U/L (AST/SGOT) Alanine Aminotransferase 32 U/L (ALT/SGPT) Alkaline Phosphatase 119 U/L Total Protein 7.4 GM/DL Albumin 2.3 GM/DL Assessment and Plan Problem List: (1) Acute kidney failure (2) Renal insufficiency (3) Stage 4 chronic kidney disease (4) CHF (congestive heart failure) (5) Cardiomyopathy Assessment and Plan 1.) Cardiomyopathy - euvolemic, continue coreg, nicole held due to arf/cri, fluid mangaement per Ankit Quinteros MD Dec 27, 2016 10:08
--- NOTE | 2016-12-27 11:03 | HHI.PR ---
Subjective Remarks Follow-up sepsis/stage IV chronic kidney disease/cardiomyopathy/chronic microcytic anemia 12/21/16-patient seen and examined, denies any significant shortness of breath or chest pain. Afebrile 12/22/16-patient seen and examined, stable and no significant shortness of breath. Good urine output 12/23/16-patient seen and examined; patient complains of abdominal bloating and constipation; Not much of an appetite 12/24/16-patient seen and examined, complains of some abdominal upset, denies any chest pain or shortness of breath. Appetite slightly improved. MAXIMUM TEMPERATURE 100.3 at 8:30 PM however currently afebrile 12/25/16-patient seen and examined, reports some improvement of appetite. Positive for bowel movement. Case discussed with nephrology. 12/26/16-patient seen and examined; complains of constipation this morning and appetite okay. 12/27/16-patient seen and examined, afebrile, reports increasing appetite, positive for bowel movement. Case discussed with Dr. Carlson cardiology Objective Vitals Vital Signs Date Time Temp Pulse Resp B/P Pulse Ox O2 Delivery O2 Flow Rate FiO2 12/27/16 10:21 92 Nasal Cannula 2.00 12/27/16 08:22 97.8 84 18 131/69 92 12/27/16 06:40 99.0 85 18 122/58 96 12/27/16 00:00 98.8 89 18 134/63 91 12/26/16 20:00 98.3 90 18 138/64 92 12/26/16 16:00 97.2 89 20 121/58 91 12/26/16 14:36 16 12/26/16 12:00 98.7 89 20 124/60 91 I/O 12/26/16 12/26/16 12/26/16 12/27/16 12/27/16 12/27/16 06:59 14:59 22:59 06:59 14:59 22:59 Intake Total 300 ml 1320 ml Balance 300 ml 1320 ml Intake Oral 300 ml 1320 ml # Voids 1 9 2 1 # Bowel Movements 0 0 0 0 Result Diagram: 12/26/16 1317 12/26/16 1317 Objective Remarks GENERAL: NAD SKIN: Warm and dry. HEAD: Normocephalic. EYES: No scleral icterus. No injection or drainage. NECK: Supple, trachea midline. No JVD or lymphadenopathy. CARDIOVASCULAR: Regular rate and rhythm without murmurs, gallops, or rubs. RESPIRATORY: Breath sounds equal bilaterally. No accessory muscle use. GASTROINTESTINAL: Abdomen soft, non-tender, nondistended. MUSCULOSKELETAL: No cyanosis,+1 BLE edema. BACK: Nontender without obvious deformity. No CVA tenderness. Procedures none A/P Problem List: (1) Bronchitis ICD Code: J40 Status: Acute (2) Acute kidney failure ICD Code: N17.9 Status: Acute (3) CHF (congestive heart failure) ICD Code: I50.9 Status: Chronic (4) Anemia ICD Code: D64.9 Status: Acute (5) Cardiomyopathy ICD Code: I42.9 Status: Acute Assessment and Plan 66-year-old female with Sepsis. Resolved -s/p Antibiotics (rocephin and azithro) and currently on by mouth Levaquin until 12/27/16 -Pauly garcia -ID consulted UTI- on Levaquin every 48H until today 12/27/16 Acute on chronic kidney failure stage IV -Creatinine/2 worsening -Avoid nephrotoxic meds -Renal US with no obstruction. -Urine NA and creatine ordered, wnl -IVF hydration Hyperkalemia Status post treatment with Kayexalate, check BMP this a.m. Acute on chronic systolic CHF. EF 30-35%. Reduced ejection fraction. appears euvolemic however. - Continue Coreg. CHARLOTTE inhibitor on hold secondary to worsening renal function -Appreciate cardiology assistance. Cardiomyopathy CHARLOTTE inhibitor on hold secondary to worsening renal function Acute on Chronic microcytic Anemia due to chronic disease Patient with history of thalassemia. No active bleeding Appreciate input from hematology Chronic pain -Cont home oxycodone DM2, chronic -Accu checks AC/HS -Diabetic diet Constipation: Resolved, continue with current stool softener Hypokalemia. Resolved DVT prophylaxis: SCDs Discharge Planning Not medically stable for discharge yet Maikel Voar MD Dec 27, 2016 11:03
[2016-12-27 12:00] VITALS: BP 127/61; PULSE 82; RESP 18; TEMP 97.5; O2SAT 96
--- NOTE | 2016-12-27 13:19 | HHI.NPPN ---
Subjective History of Present Illness 66-year-old female with a past medical history of hypertension, diabetes mellitus, chronic anemia, history of back pain and chronic kidney disease, came to the hospital with complaint of nausea, vomiting, diarrhea and back pain. I was called to see the patient with a high BUN and creatinine. The patient was found to have BUN of 36 and creatinine of 3.2. Additional Remarks Patient is alert, walking with walker, and getting PT. Review of Systems General Constitutional: Fatigue Respiratory Lungs: SOB, Cough, Sputum, Wheeze Cardiovascular Cardiac: BARBOUR Objective Data Data 12/26/16 12/27/16 18:59 06:59 Intake Total 1320 ml Balance 1320 ml Intake Oral 1320 ml # Voids 9 3 # Bowel Movements 0 0 Vital Signs Date Time Temp Pulse Resp B/P Pulse Ox O2 Delivery O2 Flow Rate FiO2 12/27/16 12:00 97.5 82 18 127/61 96 12/27/16 10:21 92 Nasal Cannula 2.00 12/27/16 08:22 97.8 84 18 131/69 92 12/27/16 06:40 99.0 85 18 122/58 96 12/27/16 00:00 98.8 89 18 134/63 91 12/26/16 20:00 98.3 90 18 138/64 92 12/26/16 16:00 97.2 89 20 121/58 91 12/26/16 14:36 16 -: 12/26/16 1317 12/26/16 1317 Physical Exam General Appearance: No Acute Distress, Comfortable Eyes Eye Exam: Pupils Equal Throat Throat Exam: Oral Mucosa [place] & Moist Neck Neck Exam: Neck Supple Pulmonary Resp Exam: Crackles, Rhonchi, Sputum, Decreased Bases, Diminished Breath Sounds Cardiology CV Exam: Regular, Normal Sinus Rhythm Gastrointestinal/Abdomen GI Exam: Soft, Non-Tender, Bowel Sounds Present, Distended Extremeties Extremities Exam: No Edema Neurologic Neuro Exam: Alert, Awake, Oriented Psychiatric Psych Exam: Appropriate Responses Assessment/Plan Assessment Summary: GRADY/Acute Renal Failure, Anemia of CKD, CHF, CKD Stage IV Problem List: (1) Bronchitis (2) Anemia (3) Stage 4 chronic kidney disease (4) Acute kidney failure Plan Patient is non oliguric, Most likely has advance chronic kidney disease due to Hypertensive and/or Diabetic Nephropathy. Continue gentle hydration and antibiotics. Possibly has an element of GRADY. Now on PO Levaquin. Avoid Nephrotoxins. BMP is pending, has BM after Kayexalate yesterday. Svitlana Cook MD Dec 27, 2016 13:18
[2016-12-27 13:22] LABS: BICARBONATE 25.8 MEQ/L (21.0-32.0); POTASSIUM 5.5 MEQ/L (3.5-5.1)
[2016-12-27 16:00] VITALS: BP 119/67; PULSE 82; RESP 18; TEMP 97.5; O2SAT 96
[2016-12-27 20:10] VITALS: BP 121/63; PULSE 83; RESP 20; TEMP 98; O2SAT 96
[2016-12-28 00:13] VITALS: BP 123/67; PULSE 82; RESP 22; TEMP 98.8; O2SAT 98
[2016-12-28 04:18] VITALS: BP 131/62; PULSE 88; RESP 20; TEMP 98.6; O2SAT 97
[2016-12-28] MEDS: INSULIN ASPART SUPPLEMENTAL SCALE SQ SCH ×4 (06:37→21:26)
[2016-12-28] MEDS: guaiFENesin/DEXTROMETHORPHAN 200 MG/20 MG/10 ML CUP PO PRN (06:37)
[2016-12-28] MEDS: CARVEDILOL 3.125 MG TAB PO SCH ×2 (08:08→21:19)
[2016-12-28] MEDS: SODIUM CHLORIDE 0.9% FLUSH 10 ML FLUSH IV FLUSH SCH ×2 (08:08→21:20)
[2016-12-28] MEDS: DOCUSATE SODIUM 50 MG/SENNA 8.6 MG TAB PO SCH ×2 (08:09→21:19)
[2016-12-28] MEDS: BENZONATATE 100 MG CAP PO SCH ×3 (08:09→18:19)
[2016-12-28] MEDS: FERROUS SULFATE 325 MG (65 MG ELEMENTAL IRON) TAB PO SCH ×2 (08:09→21:19)
[2016-12-28 08:36] VITALS: BP 140/67; PULSE 88; RESP 18; TEMP 98.9; O2SAT 92
--- NOTE | 2016-12-28 10:35 | PD.CARD.PN ---
Subjective Subjective Remarks alert in nad Objective Vital Signs / I&O Vital Signs Date Time Temp Pulse Resp B/P Pulse Ox O2 Delivery O2 Flow Rate FiO2 12/28/16 08:36 98.9 88 18 140/67 92 12/28/16 04:18 98.6 88 20 131/62 97 12/28/16 00:13 98.8 82 22 123/67 98 12/27/16 23:00 Room Air 12/27/16 20:10 98.0 83 20 121/63 96 12/27/16 16:00 97.5 82 18 119/67 96 12/27/16 12:00 97.5 82 18 127/61 96 I/O 12/27/16 12/27/16 12/27/16 12/28/16 12/28/16 12/28/16 07:00 15:00 23:00 07:00 15:00 23:00 Intake Total 320 ml 420 ml 480 ml Balance 320 ml 420 ml 480 ml Intake Oral 320 ml 420 ml 480 ml # Voids 1 4 6 5 # Bowel Movements 0 1 1 Physical Exam GENERAL: SKIN: Warm and dry. HEAD: Normocephalic. EYES: No scleral icterus. No injection or drainage. NECK: Supple, trachea midline. No JVD or lymphadenopathy. CARDIOVASCULAR: Regular rate and rhythm without murmurs, gallops, or rubs. RESPIRATORY: Breath sounds equal bilaterally. No accessory muscle use. GASTROINTESTINAL: Abdomen soft, non-tender, nondistended. MUSCULOSKELETAL: No cyanosis, or edema. BACK: Nontender without obvious deformity. No CVA tenderness. Laboratory Laboratory Tests Test 12/27/16 11:41 Sodium Level 141 MEQ/L Potassium Level 5.5 MEQ/L Chloride Level 108 MEQ/L Carbon Dioxide Level 25.8 MEQ/L Anion Gap 7 MEQ/L Blood Urea Nitrogen 45 MG/DL Creatinine 3.54 MG/DL Estimat Glomerular Filtration 16 ML/MIN Rate Random Glucose 164 MG/DL Calcium Level 8.3 MG/DL Assessment and Plan Problem List: (1) Acute kidney failure (2) Renal insufficiency (3) Stage 4 chronic kidney disease (4) CHF (congestive heart failure) (5) Cardiomyopathy Assessment and Plan 1.) Cardiomyopathy - euvolemic, continue coreg, nicole held due to arf/cri, fluid mangaement per Ankit Quinteros MD Dec 28, 2016 10:35
--- NOTE | 2016-12-28 10:40 | HHI.PR ---
Subjective Remarks Follow-up sepsis/stage IV chronic kidney disease/cardiomyopathy/chronic microcytic anemia 12/21/16-patient seen and examined, denies any significant shortness of breath or chest pain. Afebrile 12/22/16-patient seen and examined, stable and no significant shortness of breath. Good urine output 12/23/16-patient seen and examined; patient complains of abdominal bloating and constipation; Not much of an appetite 12/24/16-patient seen and examined, complains of some abdominal upset, denies any chest pain or shortness of breath. Appetite slightly improved. MAXIMUM TEMPERATURE 100.3 at 8:30 PM however currently afebrile 12/25/16-patient seen and examined, reports some improvement of appetite. Positive for bowel movement. Case discussed with nephrology. 12/26/16-patient seen and examined; complains of constipation this morning and appetite okay. 12/27/16-patient seen and examined, afebrile, reports increasing appetite, positive for bowel movement. Case discussed with Dr. Carlson cardiology 12/28/16-patient seen and examined, states she did ambulate yesterday in the hallway. Stable today. potassium 5.5 Objective Vitals Vital Signs Date Time Temp Pulse Resp B/P Pulse Ox O2 Delivery O2 Flow Rate FiO2 12/28/16 08:36 98.9 88 18 140/67 92 12/28/16 04:18 98.6 88 20 131/62 97 12/28/16 00:13 98.8 82 22 123/67 98 12/27/16 23:00 Room Air 12/27/16 20:10 98.0 83 20 121/63 96 12/27/16 16:00 97.5 82 18 119/67 96 12/27/16 12:00 97.5 82 18 127/61 96 I/O 12/27/16 12/27/16 12/27/16 12/28/16 12/28/16 12/28/16 07:00 15:00 23:00 07:00 15:00 23:00 Intake Total 320 ml 420 ml 480 ml Balance 320 ml 420 ml 480 ml Intake Oral 320 ml 420 ml 480 ml # Voids 1 4 6 5 # Bowel Movements 0 1 1 Result Diagram: 12/26/16 1317 12/27/16 1141 Objective Remarks GENERAL: NAD SKIN: Warm and dry. HEAD: Normocephalic. EYES: No scleral icterus. No injection or drainage. NECK: Supple, trachea midline. No JVD or lymphadenopathy. CARDIOVASCULAR: Regular rate and rhythm without murmurs, gallops, or rubs. RESPIRATORY: Breath sounds equal bilaterally. No accessory muscle use. GASTROINTESTINAL: Abdomen soft, non-tender, nondistended. MUSCULOSKELETAL: No cyanosis,+1 BLE edema. BACK: Nontender without obvious deformity. No CVA tenderness. Procedures none A/P Problem List: (1) Bronchitis ICD Code: J40 Status: Acute (2) Acute kidney failure ICD Code: N17.9 Status: Acute (3) CHF (congestive heart failure) ICD Code: I50.9 Status: Chronic (4) Anemia ICD Code: D64.9 Status: Acute (5) Cardiomyopathy ICD Code: I42.9 Status: Acute Assessment and Plan 66-year-old female with Sepsis. Resolved -s/p Antibiotics (rocephin and azithro) and Levaquin 12/27/16 -Pauly garcia -ID consulted UTI- s/p Levaquin every 48H on 12/27/16 Acute on chronic kidney failure stage IV -Creatinine/2 worsening -Avoid nephrotoxic meds -Renal US with no obstruction. -Urine NA and creatine ordered, wnl -IVF hydration Hyperkalemia Treat with Kayexalate 1 now, check BMP this a.m. Acute on chronic systolic CHF. EF 30-35%. Reduced ejection fraction. appears euvolemic however. - Continue Coreg. CHARLOTTE inhibitor on hold secondary to worsening renal function -Appreciate cardiology assistance. Cardiomyopathy CHARLOTTE inhibitor on hold secondary to worsening renal function Acute on Chronic microcytic Anemia due to chronic disease Patient with history of thalassemia. No active bleeding Appreciate input from hematology Chronic pain -Cont home oxycodone DM2, chronic -Accu checks AC/HS -Diabetic diet Constipation: Resolved, continue with current stool softener DVT prophylaxis: SCDs Discharge Planning Not medically stable for discharge yet Maikel Vora MD Dec 28, 2016 10:40 Maikel Vora MD Dec 28, 2016 10:40
[2016-12-28] MEDS ORDERED: SODIUM POLYSTYRENE SULFONATE SUSP 15 GM/60 ML CUP PO ONE (10:45)
--- NOTE | 2016-12-28 10:45 | HHI.NPPN ---
Subjective History of Present Illness 66-year-old female with a past medical history of hypertension, diabetes mellitus, chronic anemia, history of back pain and chronic kidney disease, came to the hospital with complaint of nausea, vomiting, diarrhea and back pain. I was called to see the patient with a high BUN and creatinine. The patient was found to have BUN of 36 and creatinine of 3.2. Additional Remarks Patient is alert, sitting on the chair, again has constipation and abd. distention. Review of Systems General Constitutional: Fatigue Respiratory Lungs: SOB, Cough, Sputum, Wheeze Cardiovascular Cardiac: BARBOUR Objective Data Data 12/27/16 12/28/16 19:00 07:00 Intake Total 320 ml 900 ml Balance 320 ml 900 ml Intake Oral 320 ml 900 ml # Voids 4 11 # Bowel Movements 2 Vital Signs Date Time Temp Pulse Resp B/P Pulse Ox O2 Delivery O2 Flow Rate FiO2 12/28/16 08:36 98.9 88 18 140/67 92 12/28/16 04:18 98.6 88 20 131/62 97 12/28/16 00:13 98.8 82 22 123/67 98 12/27/16 23:00 Room Air 12/27/16 20:10 98.0 83 20 121/63 96 12/27/16 16:00 97.5 82 18 119/67 96 12/27/16 12:00 97.5 82 18 127/61 96 -: 12/26/16 1317 12/27/16 1141 Physical Exam General Appearance: No Acute Distress, Comfortable Eyes Eye Exam: Pupils Equal Throat Throat Exam: Oral Mucosa [place] & Moist Neck Neck Exam: Neck Supple Pulmonary Resp Exam: Crackles, Rhonchi, Sputum, Decreased Bases, Diminished Breath Sounds Cardiology CV Exam: Regular, Normal Sinus Rhythm Gastrointestinal/Abdomen GI Exam: Soft, Non-Tender, Bowel Sounds Present, Distended Extremeties Extremities Exam: No Edema Neurologic Neuro Exam: Alert, Awake, Oriented Psychiatric Psych Exam: Appropriate Responses Assessment/Plan Assessment Summary: GRADY/Acute Renal Failure, Anemia of CKD, CHF, CKD Stage IV Problem List: (1) Bronchitis (2) Anemia (3) Stage 4 chronic kidney disease (4) Acute kidney failure Plan Patient is non oliguric, Most likely has advance chronic kidney disease due to Hypertensive and/or Diabetic Nephropathy. Continue gentle hydration and antibiotics. Possibly has an element of GRADY. Now on PO Levaquin. Avoid Nephrotoxins. Creatinine is almost same. K is 5.5, to get Kayexalate, decrease K in diet. Svitlana Cook MD Dec 28, 2016 10:45
[2016-12-28 12:00] VITALS: BP 133/65; PULSE 84; RESP 18; TEMP 98.1; O2SAT 94
[2016-12-28] MEDS: LEVOFLOXACIN 250 MG TAB PO SCH (15:56)
[2016-12-28 16:22] VITALS: BP 140/69; PULSE 86; RESP 18; TEMP 99.1; O2SAT 94
[2016-12-28 20:10] VITALS: BP 115/77; PULSE 92; RESP 18; TEMP 98.7; O2SAT 95
[2016-12-29 01:02] VITALS: BP 140/73; PULSE 86; RESP 19; TEMP 98.8; O2SAT 95
[2016-12-29 06:12] VITALS: BP 139/65; PULSE 84; RESP 17; TEMP 98.7; O2SAT 96
[2016-12-29] MEDS: INSULIN ASPART SUPPLEMENTAL SCALE SQ SCH ×5 (06:46→21:00)
[2016-12-29 08:26] VITALS: BP 151/78; PULSE 89; RESP 18; TEMP 98.9; O2SAT 96
[2016-12-29] MEDS: BENZONATATE 100 MG CAP PO SCH ×3 (08:52→17:19)
[2016-12-29] MEDS: SODIUM CHLORIDE 0.9% FLUSH 10 ML FLUSH IV FLUSH SCH ×2 (08:53→21:16)
[2016-12-29] MEDS: CARVEDILOL 3.125 MG TAB PO SCH ×2 (08:53→21:14)
[2016-12-29] MEDS: FERROUS SULFATE 325 MG (65 MG ELEMENTAL IRON) TAB PO SCH ×2 (08:53→21:14)
[2016-12-29] MEDS: DOCUSATE SODIUM 50 MG/SENNA 8.6 MG TAB PO SCH ×2 (09:00→21:14)
[2016-12-29 09:30] LABS: BICARBONATE 23.4 MEQ/L (21.0-32.0); POTASSIUM 4.9 MEQ/L (3.5-5.1)
--- NOTE | 2016-12-29 09:34 | HHI.PR ---
Subjective Remarks Follow-up sepsis/stage IV chronic kidney disease/cardiomyopathy/chronic microcytic anemia 12/21/16-patient seen and examined, denies any significant shortness of breath or chest pain. Afebrile 12/22/16-patient seen and examined, stable and no significant shortness of breath. Good urine output 12/23/16-patient seen and examined; patient complains of abdominal bloating and constipation; Not much of an appetite 12/24/16-patient seen and examined, complains of some abdominal upset, denies any chest pain or shortness of breath. Appetite slightly improved. MAXIMUM TEMPERATURE 100.3 at 8:30 PM however currently afebrile 12/25/16-patient seen and examined, reports some improvement of appetite. Positive for bowel movement. Case discussed with nephrology. 12/26/16-patient seen and examined; complains of constipation this morning and appetite okay. 12/27/16-patient seen and examined, afebrile, reports increasing appetite, positive for bowel movement. Case discussed with Dr. Carlson cardiology 12/28/16-patient seen and examined, states she did ambulate yesterday in the hallway. Stable today. potassium 5.5 12/29/16-patient seen and examined, states she had couple episode of BM yesterday. Hyperkalemia resolved and creatinine down to 3.09 Objective Vitals Vital Signs Date Time Temp Pulse Resp B/P Pulse Ox O2 Delivery O2 Flow Rate FiO2 12/29/16 08:59 Room Air 12/29/16 08:26 98.9 89 18 151/78 96 12/29/16 06:12 98.7 84 17 139/65 96 12/29/16 01:02 98.8 86 19 140/73 95 12/28/16 23:10 Room Air 12/28/16 20:10 98.7 92 18 115/77 95 12/28/16 18:36 98 Nasal Cannula 2.00 12/28/16 16:22 99.1 86 18 140/69 94 12/28/16 12:00 98.1 84 18 133/65 94 I/O 12/28/16 12/28/16 12/28/16 12/29/16 12/29/16 12/29/16 07:00 15:00 23:00 07:00 15:00 23:00 Intake Total 480 ml 480 ml 240 ml Balance 480 ml 480 ml 240 ml Intake Oral 480 ml 480 ml 240 ml # Voids 5 4 1 1 # Bowel Movements 1 Result Diagram: 12/26/16 1317 12/29/16 0829 Objective Remarks GENERAL: NAD SKIN: Warm and dry. HEAD: Normocephalic. EYES: No scleral icterus. No injection or drainage. NECK: Supple, trachea midline. No JVD or lymphadenopathy. CARDIOVASCULAR: Regular rate and rhythm without murmurs, gallops, or rubs. RESPIRATORY: Breath sounds equal bilaterally. No accessory muscle use. GASTROINTESTINAL: Abdomen soft, non-tender, nondistended. MUSCULOSKELETAL: No cyanosis,+1 BLE edema. BACK: Nontender without obvious deformity. No CVA tenderness. Procedures none A/P Problem List: (1) Bronchitis ICD Code: J40 Status: Acute (2) Acute kidney failure ICD Code: N17.9 Status: Acute (3) CHF (congestive heart failure) ICD Code: I50.9 Status: Chronic (4) Anemia ICD Code: D64.9 Status: Acute (5) Cardiomyopathy ICD Code: I42.9 Status: Acute Assessment and Plan 66-year-old female with Sepsis. Resolved -s/p Antibiotics (rocephin and azithro) and s/p Levaquin -Pauly garcia -ID consulted UTI- s/p Levaquin every 48H until Acute on chronic kidney failure stage IV -Creatinine/2 worsening -Avoid nephrotoxic meds -Renal US with no obstruction. -Urine NA and creatine ordered, wnl -IVF hydration -Creatinine down to 3.09 Hyperkalemia Resolved status post treatment with Kayexalate 1 now, check BMP this a.m. Acute on chronic systolic CHF. EF 30-35%. Reduced ejection fraction. appears euvolemic however. - Continue Coreg. CHARLOTTE inhibitor on hold secondary to worsening renal function -Appreciate cardiology assistance. Cardiomyopathy CHARLOTTE inhibitor on hold secondary to worsening renal function Acute on Chronic microcytic Anemia due to chronic disease Patient with history of thalassemia. No active bleeding Appreciate input from hematology Chronic pain -Cont home oxycodone DM2, chronic -Accu checks AC/HS -Diabetic diet Constipation: Resolved, continue with current stool softener DVT prophylaxis: SCDs Discharge Planning Not medically stable for discharge yet Maikel Vora MD Dec 29, 2016 09:33
[2016-12-29 12:11] VITALS: BP 118/64; PULSE 83; RESP 18; TEMP 98.2; O2SAT 97
--- NOTE | 2016-12-29 13:32 | PD.CARD.PN ---
Subjective Subjective Remarks alert in nad Objective Vital Signs / I&O Vital Signs Date Time Temp Pulse Resp B/P Pulse Ox O2 Delivery O2 Flow Rate FiO2 12/29/16 12:30 20 12/29/16 12:11 98.2 83 18 118/64 97 12/29/16 08:59 Room Air 12/29/16 08:26 98.9 89 18 151/78 96 12/29/16 06:12 98.7 84 17 139/65 96 12/29/16 01:02 98.8 86 19 140/73 95 12/28/16 23:10 Room Air 12/28/16 20:10 98.7 92 18 115/77 95 12/28/16 18:36 98 Nasal Cannula 2.00 12/28/16 16:22 99.1 86 18 140/69 94 I/O 12/28/16 12/28/16 12/28/16 12/29/16 12/29/16 12/29/16 07:00 15:00 23:00 07:00 15:00 23:00 Intake Total 480 ml 480 ml 240 ml Balance 480 ml 480 ml 240 ml Intake Oral 480 ml 480 ml 240 ml # Voids 5 4 1 1 # Bowel Movements 1 Physical Exam GENERAL: SKIN: Warm and dry. HEAD: Normocephalic. EYES: No scleral icterus. No injection or drainage. NECK: Supple, trachea midline. No JVD or lymphadenopathy. CARDIOVASCULAR: Regular rate and rhythm without murmurs, gallops, or rubs. RESPIRATORY: Breath sounds equal bilaterally. No accessory muscle use. GASTROINTESTINAL: Abdomen soft, non-tender, nondistended. MUSCULOSKELETAL: No cyanosis, or edema. BACK: Nontender without obvious deformity. No CVA tenderness. Laboratory Laboratory Tests Test 12/29/16 08:29 Sodium Level 139 MEQ/L Potassium Level 4.9 MEQ/L Chloride Level 107 MEQ/L Carbon Dioxide Level 23.4 MEQ/L Anion Gap 9 MEQ/L Blood Urea Nitrogen 35 MG/DL Creatinine 3.04 MG/DL Estimat Glomerular Filtration 19 ML/MIN Rate Random Glucose 115 MG/DL Calcium Level 8.1 MG/DL Assessment and Plan Problem List: (1) Acute kidney failure (2) Renal insufficiency (3) Stage 4 chronic kidney disease (4) CHF (congestive heart failure) (5) Cardiomyopathy Assessment and Plan 1.) Cardiomyopathy - euvolemic, continue coreg, nicole held due to arf/cri, fluid mangaement per Dr Cook, arf improved Ankit Carlson MD Dec 29, 2016 13:32
--- NOTE | 2016-12-29 16:23 | HHI.NPPN ---
Subjective History of Present Illness 66-year-old female with a past medical history of hypertension, diabetes mellitus, chronic anemia, history of back pain and chronic kidney disease, came to the hospital with complaint of nausea, vomiting, diarrhea and back pain. I was called to see the patient with a high BUN and creatinine. The patient was found to have BUN of 36 and creatinine of 3.2. Additional Remarks Patient is alert, sitting on the chair, now had BM and no nausea. Review of Systems General Constitutional: Fatigue Respiratory Lungs: SOB, Cough, Sputum, Wheeze Cardiovascular Cardiac: BARBOUR Objective Data Data 12/28/16 12/29/16 19:00 07:00 Intake Total 480 ml 240 ml Balance 480 ml 240 ml Intake Oral 480 ml 240 ml # Voids 4 2 Vital Signs Date Time Temp Pulse Resp B/P Pulse Ox O2 Delivery O2 Flow Rate FiO2 12/29/16 12:30 20 12/29/16 12:11 98.2 83 18 118/64 97 12/29/16 08:59 Room Air 12/29/16 08:26 98.9 89 18 151/78 96 12/29/16 06:12 98.7 84 17 139/65 96 12/29/16 01:02 98.8 86 19 140/73 95 12/28/16 23:10 Room Air 12/28/16 20:10 98.7 92 18 115/77 95 12/28/16 18:36 98 Nasal Cannula 2.00 -: 12/26/16 1317 12/29/16 0829 Physical Exam General Appearance: No Acute Distress, Comfortable Eyes Eye Exam: Pupils Equal Throat Throat Exam: Oral Mucosa [place] & Moist Neck Neck Exam: Neck Supple Pulmonary Resp Exam: Crackles, Rhonchi, Sputum, Decreased Bases, Diminished Breath Sounds Cardiology CV Exam: Regular, Normal Sinus Rhythm Gastrointestinal/Abdomen GI Exam: Soft, Non-Tender, Bowel Sounds Present, Distended Extremeties Extremities Exam: No Edema Neurologic Neuro Exam: Alert, Awake, Oriented Psychiatric Psych Exam: Appropriate Responses Assessment/Plan Assessment Summary: GRADY/Acute Renal Failure, Anemia of CKD, CHF, CKD Stage IV Problem List: (1) Bronchitis (2) Anemia (3) Stage 4 chronic kidney disease (4) Acute kidney failure Plan Patient is non oliguric, Most likely has advance chronic kidney disease due to Hypertensive and/or Diabetic Nephropathy. Continue gentle hydration and antibiotics. Possibly has an element of GRADY. Now on PO Levaquin. Avoid Nephrotoxins. Creatinine is slightly better. K is normal. If D/C, will need out patient follow up. Svitlana Cook MD Dec 29, 2016 16:23
[2016-12-29 16:46] VITALS: BP 122/65; PULSE 82; RESP 18; TEMP 98.7; O2SAT 97
[2016-12-29 20:00] VITALS: BP 146/73; PULSE 85; RESP 18; TEMP 97.2; O2SAT 98
[2016-12-30] VITALS: BP 138/72; PULSE 80; RESP 18; TEMP 97.4; O2SAT 97
[2016-12-30 04:00] VITALS: BP 140/73; PULSE 85; RESP 18; TEMP 98.1; O2SAT 93
[2016-12-30] MEDS: INSULIN ASPART SUPPLEMENTAL SCALE SQ SCH ×2 (06:20→11:43)
[2016-12-30 08:00] VITALS: BP 137/69; PULSE 86; RESP 20; TEMP 98; O2SAT 95
[2016-12-30] MEDS: CARVEDILOL 3.125 MG TAB PO SCH (08:57)
[2016-12-30] MEDS: DOCUSATE SODIUM 50 MG/SENNA 8.6 MG TAB PO SCH (08:57)
[2016-12-30] MEDS: FERROUS SULFATE 325 MG (65 MG ELEMENTAL IRON) TAB PO SCH (08:57)
[2016-12-30] MEDS: SODIUM CHLORIDE 0.9% FLUSH 10 ML FLUSH IV FLUSH SCH (08:58)
[2016-12-30] MEDS: BENZONATATE 100 MG CAP PO SCH (08:58)
--- NOTE | 2016-12-30 09:31 | HHI.PR ---
Subjective Remarks Follow-up sepsis/stage IV chronic kidney disease/cardiomyopathy/chronic microcytic anemia 12/21/16-patient seen and examined, denies any significant shortness of breath or chest pain. Afebrile 12/22/16-patient seen and examined, stable and no significant shortness of breath. Good urine output 12/23/16-patient seen and examined; patient complains of abdominal bloating and constipation; Not much of an appetite 12/24/16-patient seen and examined, complains of some abdominal upset, denies any chest pain or shortness of breath. Appetite slightly improved. MAXIMUM TEMPERATURE 100.3 at 8:30 PM however currently afebrile 12/25/16-patient seen and examined, reports some improvement of appetite. Positive for bowel movement. Case discussed with nephrology. 12/26/16-patient seen and examined; complains of constipation this morning and appetite okay. 12/27/16-patient seen and examined, afebrile, reports increasing appetite, positive for bowel movement. Case discussed with Dr. Carlson cardiology 12/28/16-patient seen and examined, states she did ambulate yesterday in the hallway. Stable today. potassium 5.5 12/29/16-patient seen and examined, states she had couple episode of BM yesterday. Hyperkalemia resolved and creatinine down to 3.09 12/30/16-patient seen and examined, stable and no acute event overnight. She is not ready for discharge and she is looking for discharge home. States she will follow with PCP on 01/12/17 Objective Vitals Vital Signs Date Time Temp Pulse Resp B/P Pulse Ox O2 Delivery O2 Flow Rate FiO2 12/30/16 08:00 98.0 86 20 137/69 95 12/30/16 04:00 98.1 85 18 140/73 93 12/30/16 00:06 Room Air 12/30/16 00:00 97.4 80 18 138/72 97 12/29/16 20:00 97.2 85 18 146/73 98 12/29/16 16:46 98.7 82 18 122/65 97 12/29/16 12:30 20 12/29/16 12:11 98.2 83 18 118/64 97 I/O 12/29/16 12/29/16 12/29/16 12/30/16 12/30/16/13/17 07:00 15:00 23:00 07:00 15:00 23:00 Intake Total 960 ml Balance 960 ml Intake Oral 960 ml # Voids 1 6 2 # Bowel Movements 1 Result Diagram: 12/26/16 1317 12/29/16 0829 Imaging Last Impressions Chest X-Ray 12/19/16 0000 Signed Impressions: Service Date/Time: Monday, December 19, 2016 15:40 - CONCLUSION: Bilateral diffuse interstitial opacity likely representing pulmonary edema, and small pleural effusions. Lawson Smith MD Renal Ultrasound 12/17/16 0000 Signed Impressions: Service Date/Time: Saturday, December 17, 2016 13:21 - CONCLUSION: 1. Sonographic findings consistent with medical renal disease. No obstruction. Kolby Hughes Jr., MD Objective Remarks GENERAL: NAD SKIN: Warm and dry. HEAD: Normocephalic. EYES: No scleral icterus. No injection or drainage. NECK: Supple, trachea midline. No JVD or lymphadenopathy. CARDIOVASCULAR: Regular rate and rhythm without murmurs, gallops, or rubs. RESPIRATORY: Breath sounds equal bilaterally. No accessory muscle use. GASTROINTESTINAL: Abdomen soft, non-tender, nondistended. MUSCULOSKELETAL: No cyanosis,+trace BLE edema. BACK: Nontender without obvious deformity. No CVA tenderness. Procedures none A/P Problem List: (1) Bronchitis ICD Code: J40 Status: Resolved (2) Acute kidney failure ICD Code: N17.9 Status: Acute (3) CHF (congestive heart failure) ICD Code: I50.9 Status: Chronic (4) Anemia ICD Code: D64.9 Status: Acute (5) Cardiomyopathy ICD Code: I42.9 Status: Acute Assessment and Plan 66-year-old female with Sepsis. Resolved -s/p Antibiotics (rocephin and azithro) and Levaquin 12/27/16 -Pauly garcia -ID consulted UTI- s/p Levaquin every 48H on 12/27/16 Acute on chronic kidney failure stage IV -Creatinine/2 worsening -Avoid nephrotoxic meds -Renal US with no obstruction. -Urine NA and creatine ordered, wnl -IVF hydration Hyperkalemia Resolved post treatment with Kayexalate Acute on chronic systolic CHF. EF 30-35%. Reduced ejection fraction. appears euvolemic however. - Continue Coreg. CHARLOTTE inhibitor on hold secondary to worsening renal function -Appreciate cardiology assistance. Cardiomyopathy CHARLOTTE inhibitor on hold secondary to worsening renal function Acute on Chronic microcytic Anemia due to chronic disease Patient with history of thalassemia. No active bleeding Appreciate input from hematology Chronic pain -Cont home oxycodone DM2, chronic -Accu checks AC/HS -Diabetic diet Constipation: Resolved, continue with current stool softener DVT prophylaxis: SCDs Discharge Planning Not medically stable for discharge yet Maikel Vora MD Dec 30, 2016 09:31
[2016-12-30] MEDS ORDERED: FERR325T20 PO (09:38)
[2016-12-30] MEDS ORDERED: SENN1TAB PO (09:38)
[2016-12-30] MEDS ORDERED: BENZ100 PO (09:38)
[2016-12-30] MEDS ORDERED: CARV3.125 PO (09:38)
--- NOTE | 2016-12-30 09:44 | HHI.DS ---
Discharge Summary Admission Date December 17, 2016 at 12:39 Discharge Date: Dec 30, 2016 Admitting Diagnosis Acute kidney Injury, Bronchitis (1) Bronchitis ICD Code: J40 (2) Acute kidney failure ICD Code: N17.9 (3) CHF (congestive heart failure) ICD Code: I50.9 (4) Anemia ICD Code: D64.9 (5) Cardiomyopathy ICD Code: I42.9 Procedures none Brief History - From Admission Written by KO Caruso acting as scribe for Dr. Nixon] on 12/17/16 at 13 :24. 66 y/o female with a history of HTN, chronic anemia, chronic pain, and DM presented to the ED with complaints of a dry non productive cough that started 1 month ago. She states she got up this morning and she felt weak and dizzy. She had some nausea this morning with no vomiting. Off and on diarrhea for the last few days. For the last month she has been taking Mucinex D with no relief. No new medications over the last 2 months. Grand-daughter was sick with strep throat but no one else. Able to eat but states when she drinks she starts to cough. Chills but no fevers. 800mg of Ibuprofen taken yesterday, she ran out of pain medications on Thursday so she took NSAIDs due to the chronic pain. Denies any chest pain, or sob. Denies any chronic kidney disease. CBC/BMP: 12/26/16 1317 12/29/16 0829 Significant Findings Laboratory Tests Test 12/27/16 12/29/16 11:41 08:29 Potassium Level 5.5 MEQ/L (3.5-5.1) Chloride Level 108 MEQ/L (98-107) Blood Urea Nitrogen 45 MG/DL (7-18) 35 MG/DL (7-18) Creatinine 3.54 MG/DL 3.04 MG/DL (0.50-1.00) (0.50-1.00) Estimat Glomerular Filtration 16 ML/MIN (>89) 19 ML/MIN (>89) Rate Random Glucose 164 MG/DL 115 MG/DL (74-106) (74-106) Calcium Level 8.3 MG/DL 8.1 MG/DL (8.5-10.1) (8.5-10.1) PE at Discharge GENERAL: NAD SKIN: Warm and dry. HEAD: Normocephalic. EYES: No scleral icterus. No injection or drainage. NECK: Supple, trachea midline. No JVD or lymphadenopathy. CARDIOVASCULAR: Regular rate and rhythm without murmurs, gallops, or rubs. RESPIRATORY: Breath sounds equal bilaterally. No accessory muscle use. GASTROINTESTINAL: Abdomen soft, non-tender, nondistended. MUSCULOSKELETAL: No cyanosis,+trace BLE edema. BACK: Nontender without obvious deformity. No CVA tenderness. Hospital Course Patient was admitted secondary to sepsis due to UTI as well as bronchitis for which infectious disease specialist was consulted and patient initially was started on IV antibiotics and switched to by mouth Levaquin NT 12/27/16. Secondary to worsening renal on chronic kidney disease stage IV nephrology was consulted and patient was treated with gentle IV fluid hydration and all nephrotoxic drugs were held including CHARLOTTE inhibitor,ARBs, diuretics and glipizide. All electrolyte abnormalities were corrected accordingly. Hyperkalemia. Cardiology was consulted due to acute on chronic CHF as well as cardiomyopathy. Patient was placed on sliding scale insulin. Chronic pain medications were continued. PT was consulted. DVT and GI prophylaxis were provided. Constipation was treated accordingly. Patient will be discharged home and will follow PCP , who will order home health care as patient declines to go to a SNF. We will hold Lasix,ARB and glipizide until BUN and creatinine monitored , Pt Condition on Discharge: Stable Discharge Disposition: Discharge Home Discharge Time: > 30 minutes Discharge Instructions DIET: Follow Instructions for: Diabetic Diet, Renal Failure Diet Activities you can perform: Regular-No Restrictions Follow up Referrals: Cardiology Nephrology Oncology - 1 Week with Chase Edmonds MD PCP Follow-up - 1 Week New Medications: Benzonatate (Tessalon Perles) 100 Mg Cap 100 MG PO TID Breathing Treatment #20 CAP Carvedilol (Coreg) 3.125 Mg Tab 3.125 MG PO Q12HR Blood Pressure Management #60 Ref 3 TAB Ferrous Sulfate (Ferosul) 325 Mg Tablet 325 MG PO BID Nutritional Supplement #60 MG Sennosides-Docusate Sodium (Senna Plus 8.6-50 mg) 1 Tab Tab 1 TAB PO BID Immunosuppression #20 TAB Continued Medications: Amlodipine (Amlodipine) 10 Mg Tab 10 MG PO DAILY Blood Pressure Management #30 Ref 0 TAB Atropine Sulfate (Ophthalmic) (Isopto Atropine) 1 % Nasrin 1 % LEFT EYE BID Cholecalciferol (Vitamin D3) 400 Unit Cap 400 UNIT PO TID Cholecalciferol (D3) 1,000 Unit Cap Ferrous Sulfate (Ferrous Sulfate) 325 Mg Tab 325 MG PO BID Insulin Glargine (Lantus) 100 Units/Ml Inj 20 UNITS SQ HS ML Oxycodone Hcl (Oxycodone) 5 Mg Tab 5 MG PO Q6HPRN Discontinued Medications: Norvasc (Norvasc) 5 Mg Tab 5 MG PO DAILY ([insulin pen needle]) #120 Ref 11 ([Insulin syringe 32]) #120 Ref 6 Maikel Vora MD Dec 30, 2016 09:44
[2016-12-30] MEDS ORDERED: OXYC-392 PO (09:48)
[2016-12-30] MEDS ORDERED: LANTUS2P SQ (09:48)
[2016-12-30 12:00] VITALS: BP 120/57; PULSE 85; RESP 18; TEMP 98.8; O2SAT 94
[2017-01-19] MEDS ORDERED: ATRO10DR LEFT EYE (13:51)
[2017-01-19] MEDS ORDERED: [UNRECOGNIZED DRUG - CODE] (13:51)
[2017-01-19] MEDS ORDERED: [UNRECOGNIZED DRUG - OTHER] PO (13:51)
[2017-01-19] MEDS ORDERED: CHOL1LIQ PO (13:51)
[2017-01-19] MEDS ORDERED: LANTUS2P SQ ×2 (14:08→14:48)
[2017-01-19] MEDS ORDERED: BLOO1EAC16 (14:48)
[2017-01-19] MEDS ORDERED: LANTINJ SQ (14:52)
[2017-01-20] MEDS ORDERED: TIZA4CAP3 PO (12:18)
== END 2016-12-30 12:27 | disposition home or self-care (01) | DRG 871 ==
LOC: NEPE 09:42 → MERGE 12:39 → NEDA 12:39 → OBSVTOIN 12:39 → N05A 20:23
PROVIDERS: ADMIT Hospitalist; ATTEND Hospitalist
PROC: 30233N1 Transfusion of Nonautologous Red Blood Cells into Peripheral Vein, Percutaneous Approach (ICD-10-PCS; principal; 2016-12-19)
DX: A41.9 Sepsis, unspecified organism (principal); I50.23 Acute on chronic systolic (congestive) heart failure; N18.4 Chronic kidney disease, stage 4 (severe); I42.9 Cardiomyopathy, unspecified; N17.9 Acute kidney failure, unspecified; E11.22 Type 2 diabetes mellitus with diabetic chronic kidney disease; E11.40 Type 2 diabetes mellitus with diabetic neuropathy, unspecified; E11.319 Type 2 diabetes mellitus with unspecified diabetic retinopathy without macular edema; E11.65 Type 2 diabetes mellitus with hyperglycemia; Z79.84 Long term (current) use of oral hypoglycemic drugs; N39.0 Urinary tract infection, site not specified; E87.5 Hyperkalemia; J40 Bronchitis, not specified as acute or chronic; D50.8 Other iron deficiency anemias; D63.8 Anemia in other chronic diseases classified elsewhere; I12.9 Hypertensive chronic kidney disease with stage 1 through stage 4 chronic kidney disease, or unspecified chronic kidney disease; K59.00 Constipation, unspecified; G89.4 Chronic pain syndrome; M54.5 Low back pain; E86.0 Dehydration; I44.7 Left bundle-branch block, unspecified; E83.51 Hypocalcemia; E88.09 Other disorders of plasma-protein metabolism, not elsewhere classified; Z96.1 Presence of intraocular lens
CPT/HCPCS: 36430; 71010; 71020; 76775; 80048; 80053; 80069; 81001; 82306; 82550; 82552; 82570; 82652; 82728; 82948; 83020; 83540; 83550; 83605; 83735; 83880; 84100; 84165; 84300; 84439; 84443; 84480; 85025; 85044; 85610; 85652; 85660; 85730; 86021; 86038; 86140; 86430; 86631; 86632; 86738; 86850; 86900; 86901; 86920; 87040; 87081; 87449; 87804; 87880; 93005; 93306; 94664; 94667; 94668; 96361; 96374; 96375; G8987-GP; G8988-GP; J0456; J0610; J0696; J1815; J2405; J7030; J7050; P9016; Q4081

== ENCOUNTER 2017-02-05 12:34 | Inpatient (IN) | payer MEDICARE, MEDICAID ==
[~2017-02-05] VITALS: Ht 165.1 cm; Wt 72.8 kg
[~2017-02-05 12:34] MED LIST changes: +AMLO10TA2 PO; +ATRO10DR LEFT EYE; +BENZ100 PO; +BLOO1EAC16; +CARV3.125 PO; +CHOL1LIQ PO; -COZA100T PO; +D31000CA; -FERR324T4 PO; +FERR325T20 PO; -FLUD.1 PO; -FURO20TA PO; +GLIP10TA6 PO; -GLUC10TA3 PO; -INSULIN; -ISOP1SOL2 LEFT EYE; +LANTINJ SQ; -LANTUSP SQ; -METHO500 PO; -NEBI20 PO; -NORV5TAB PO; +OXYC-392 PO; -OXYC5 PO; +SENN1TAB PO; +TIZA4CAP3 PO; -VITA400C58 PO; +[UNRECOGNIZED DRUG - CODE]
[2017-02-05 12:35] VITALS: BP 158/72; PULSE 97; RESP 24; TEMP 99; O2SAT 99
--- NOTE | 2017-02-05 12:41 | PD ---
Physical Exam Time Seen by Provider: 12:39 Narrative 66 y/o female here with abdominal pain, nausea and vomiting since last night. Vital signs reviewed. Seen at triage desk. Awaiting bed placement. Data Data Last Documented VS Vital Signs Date Time Temp Pulse Resp B/P Pulse Ox O2 Delivery O2 Flow Rate FiO2 02/05/17 12:35 99.0 97 24 158/72 99 Room Air [facility] Medical Record Reviewed: Yes Supervised Visit with BJORN: Jeremy Hill Feb 05, 2017 12:40
[2017-02-05 13:28] LABS: AUTOMATED NEUTROPHIL # 7.7 TH/MM3 (1.8-7.7); BASOPHIL % 0.3 % (0.0-2.0); EOSINOPHIL # 0.1 TH/MM3 (0-0.4); EOSINOPHIL % 0.9 % (0.0-4.0); HEMATOCRIT 32.2 % (35.0-46.0); HEMO FLAGS DIFF FINAL; LYMPH % 14.3 % (9.0-44.0); LYMPHOCYTE # 1.4 TH/MM3 (1.0-4.8); MEAN CELL VOLUME 67.2 FL (80.0-100.0); MEAN CORPUSCULAR HEMOGLOBIN 20.7 PG (27.0-34.0); MEAN CORPUSCULAR HGB CONC 30.8 % (32.0-36.0); MONO % 5.8 % (0.0-8.0); NEUT % 78.7 % (16.0-70.0); PLATELET COUNT 257 TH/MM3 (150-450); RED BLOOD COUNT 4.79 MIL/MM3 (4.00-5.30); RED CELL DISTRIBUTION WIDTH 16.3 % (11.6-17.2); WHITE BLOOD COUNT 9.8 TH/MM3 (4.0-11.0)
[2017-02-05 13:33] LABS: INTERNATIONAL NORMALIZED RATIO 0.9 RATIO
[2017-02-05 13:44] LABS: ALT (GPT) 155 U/L (10-53); ANION GAP 7 MEQ/L (5-15); AST (GOT) 63 U/L (15-37); BICARBONATE 22.8 MEQ/L (21.0-32.0); BLOOD UREA NITROGEN 33 MG/DL (7-18); CHLORIDE 109 MEQ/L (98-107); GLOMERULAR FILTRATION RATE 21 ML/MIN (>89); SODIUM (NA) 139 MEQ/L (136-145)
[2017-02-05 13:46] LABS: ALKALINE PHOSPHATASE 155 U/L (45-117); TOTAL BILIRUBIN ADULT 0.3 MG/DL (0.2-1.0)
[2017-02-05 14:03] LABS: BACTERIA, URINE RARE /hpf; BLOOD, URINE SMALL (NEG); GLUCOSE,URINE NEG (NEG); KETONE, URINE NEG (NEG); NITRITE,URINE NEG (NEG); PH, URINE 5.5 (5.0-8.5); SQUAMOUS EPITHELIAL CELL URINE 2 /hpf (0-5); URINE COLOR LIGHT-YELLOW (YELLW/STRAW)
[2017-02-05 14:04] LABS: COMMENT (UR) CULT NOT INDICATED; CULTURE IF INDICATED CULT NOT INDICATED
[2017-02-05] MEDS ORDERED: PROC10003 SQ (16:08)
[2017-02-05] MEDS ORDERED: PROC20005 SQ (16:08)
[2017-02-05] MEDS ORDERED: iron infusion IV (16:08)
[2017-02-05] MEDS ORDERED: ONDANSETRON HCL 4 MG/2 ML VIAL IV PUSH ONE (16:30)
--- NOTE | 2017-02-05 16:44 | PD ---
HPI Chief Complaint: Abdominal Pain Time Seen by Provider: 16:42 Travel History International Travel<30 days: No Contact w/Intl Traveler<30days: No Traveled to known affect area: No History of Present Illness HPI 66 YO F with PMH of DM, CHF, CKD stage IV, thalassemia, chronic anemia presents to the ED for evaluation of ~4 hour history of abdominal pain, nausea and NBNB vomiting. The patient states that she was experiencing back pain, which kept her awake overnight. Endorses anorexia overnight. Last BM "2 or 3 days ago." Denies fever, chills, changes in bowel habits, dysuria, CP, palpitations. She states that she was on her way to see her PCP (Dr. Lopez) when the pain occurred. PFSH Past Medical History Anemia: Yes (pernicious, thalasemia) Arthritis: No Asthma: No Autoimmune Disease: No Blood Disorders: No Anxiety: No Depression: No Heart Rhythm Problems: No Cancer: No Cardiovascular Problems: Yes High Cholesterol: Yes Chest Pain: Yes Congestive Heart Failure: No COPD: No Cerebrovascular Accident: No Diabetes: Yes Patient Takes Glucophage: No Diminished Hearing: No Endocrine: Yes GERD: No Glaucoma: No Genitourinary: Yes (stage 4 renal;dr. myers) Headaches: Yes Hepatitis: No Hiatal Hernia: No Hypertension: Yes Immune Disorder: No Kidney Stones: No Musculoskeletal: Yes Neurologic: No Psychiatric: No Reproductive: No Respiratory: No Migraines: No Myocardial Infarction: No Renal Failure: No Seizures: No Sickle Cell Disease: No (trait) Sleep Apnea: No Thyroid Disease: No Ulcer: No Menopausal: Yes : 6 Para: 4 Miscarriage: 2 Past Surgical History Abdominal Surgery: No Appendectomy: No Cardiac Surgery: No Cholecystectomy: No Ear Surgery: No Endocrine Surgery: No Eye Surgery: Yes Genitourinary Surgery: No Gynecologic Surgery: No Hysterectomy: No Oral Surgery: No Pacemaker: No Thoracic Surgery: No Social History Alcohol Use: No Tobacco Use: No Substance Use: No Allergies-Medications (Allergen,Severity, Reaction): Coded Allergies: Lisinopril (Unverified Allergy, Intermediate, Cough, 01/19/17) Reported Meds & Prescriptions Reported Meds & Active Scripts Active Lantus Solostar Pen Inj (Insulin Glargine) 300 Unit/3 Ml Pen 20 Units SQ DAILY Blood Glucose Monitor (Blood-Glucose Meter) 1 Each Each Ea DAILY Oxycodone (Oxycodone HCl) 5 Mg Tab 5 Mg PO Q6H PRN Senna Plus 8.6-50 mg (Sennosides-Docusate Sodium) 1 Tab Tab 1 Tab PO BID Tessalon Perles (Benzonatate) 100 Mg Cap 100 Mg PO TID Ferosul (Ferrous Sulfate) 325 Mg Tablet 325 Mg PO BID Coreg (Carvedilol) 3.125 Mg Tab 3.125 Mg PO Q12HR Reported [iron infusion] Unknown Dose IV [id number] Procrit Inj (Epoetin Moreno) 10,000 Unit/Ml Inj Unknown Dose SQ 3XWEEK Tizanidine (Tizanidine HCl) 4 Mg Cap 4 Mg PO TID Baby Ddrops (Cholecalciferol) 400 Unit/0.03 Ml Liq 400 Units PO DAILY D 400 (Cholecalciferol) 400 Unit Chew Atropine 0.01%-Ns Eye Drops (Atropine Sulfate in 0.9% NaCl) 10 Ml Drops 0.01 Drop LEFT EYE BID D3 (Cholecalciferol) 1,000 Unit Cap Amlodipine (Amlodipine Besylate) 10 Mg Tab 10 Mg PO DAILY Glipizide 10 Mg Tab 10 Mg PO BIDAC Take 30 minutes before a meal Review of Systems Except as stated in HPI: all other systems reviewed are Neg Physical Exam Narrative GENERAL: Well-nourished, well-developed black female in no acute distress. SKIN: Focused skin assessment warm/dry. HEAD: Normocephalic. EYES: No scleral icterus. No injection or drainage. NECK: Supple, trachea midline. No JVD or lymphadenopathy. CARDIOVASCULAR: Regular rate and rhythm without murmurs, gallops, or rubs. RESPIRATORY: Breath sounds equal bilaterally. No accessory muscle use. GASTROINTESTINAL: Abdomen firm, distended. Tender in the periumbilical area. No palpable masses. Hypoactive bowel sounds. MUSCULOSKELETAL: No cyanosis, or edema. BACK: Nontender without obvious deformity. No CVA tenderness. Data Data Last Documented VS Vital Signs Date Time Temp Pulse Resp B/P Pulse Ox O2 Delivery O2 Flow Rate FiO2 02/05/17 12:35 99.0 97 24 158/72 99 Room Air Orders Complete Blood Count With Diff (02/05/17 12:41) Comprehensive Metabolic Panel (02/05/17 12:41) Lipase (02/05/17 12:41) Prothrombin Time / Inr (Pt) (02/05/17 12:41) Act Partial Throm Time (Ptt) (02/05/17 12:41) Urinalysis - C+S If Indicated (02/05/17 12:41) Electrocardiogram (02/05/17 12:41) Ondansetron Inj (Zofran Inj) (02/05/17 16:30) Ct Abd/Pel W/O Iv Contrast (02/05/17 16:56) Morphine Inj (Morphine Inj) (02/05/17 17:00) Sodium Chlorid 0.9% 500 Ml Inj (Ns 500 M (02/05/17 17:00) Piperacil-Tazo 3.375 Gm Premix (Zosyn 3. (02/05/17 18:45) Consult General Surgery (02/05/17 ) Admit Order (Ed Use Only) (02/05/17 18:48) NPO (02/05/17 18:49) Morphine Inj (Morphine Inj) (02/05/17 19:00) Labs Laboratory Tests Test 02/05/17 02/05/17 02/05/17 10:45 13:05 13:10 White Blood Count 9.8 TH/MM3 Red Blood Count 4.79 MIL/MM3 Hemoglobin 9.9 GM/DL Hematocrit 32.2 % Mean Corpuscular Volume 67.2 FL Mean Corpuscular Hemoglobin 20.7 PG Mean Corpuscular Hemoglobin 30.8 % Concent Red Cell Distribution Width 16.3 % Platelet Count 257 TH/MM3 Mean Platelet Volume 8.4 FL Neutrophils (%) (Auto) 78.7 % Lymphocytes (%) (Auto) 14.3 % Monocytes (%) (Auto) 5.8 % Eosinophils (%) (Auto) 0.9 % Basophils (%) (Auto) 0.3 % Neutrophils # (Auto) 7.7 TH/MM3 Lymphocytes # (Auto) 1.4 TH/MM3 Monocytes # (Auto) 0.6 TH/MM3 Eosinophils # (Auto) 0.1 TH/MM3 Basophils # (Auto) 0.0 TH/MM3 CBC Comment DIFF FINAL Differential Comment Prothrombin Time 10.0 SEC Prothromb Time International 0.9 RATIO Ratio Activated Partial 28.0 SEC Thromboplast Time Sodium Level 139 MEQ/L Potassium Level 5.0 MEQ/L Chloride Level 109 MEQ/L Carbon Dioxide Level 22.8 MEQ/L Anion Gap 7 MEQ/L Blood Urea Nitrogen 33 MG/DL Creatinine 2.75 MG/DL Estimat Glomerular Filtration 21 ML/MIN Rate Random Glucose 145 MG/DL Calcium Level 9.0 MG/DL Total Bilirubin 0.3 MG/DL Aspartate Amino Transf 63 U/L (AST/SGOT) Alanine Aminotransferase 155 U/L (ALT/SGPT) Alkaline Phosphatase 155 U/L Total Protein 8.8 GM/DL Albumin 3.4 GM/DL Lipase 197 U/L Urine Color LIGHT-YELLOW Urine Turbidity CLEAR Urine pH 5.5 Urine Specific Rittman 1.011 Urine Protein 30 mg/dL Urine Glucose (UA) NEG mg/dL Urine Ketones NEG mg/dL Urine Occult Blood SMALL Urine Nitrite NEG Urine Bilirubin NEG Urine Urobilinogen LESS THAN 2.0 MG/DL Urine Leukocyte Esterase NEG Urine RBC 1 /hpf Urine WBC LESS THAN 1 /hpf Urine Squamous Epithelial 2 /hpf Cells Urine Bacteria RARE /hpf Microscopic Urinalysis Comment CULT NOT INDICATED MDM Medical Decision Making Medical Screen Exam Complete: Yes Emergency Medical Condition: Yes Differential Diagnosis UTI versus ileus versus bowel obstruction versus cholecystitis versus appendicitis versus other Narrative Course 66 YO F with PMH of DM, CHF, CKD stage IV, thalassemia, chronic anemia presents to the ED for evaluation of ~4 hour history of abdominal pain, nausea and NBNB vomiting. The patient states that she was experiencing back pain, which kept her awake overnight. Endorses anorexia overnight. Last BM "2 or 3 days ago." Denies fever, chills, changes in bowel habits, dysuria, CP, palpitations. PCP Dr. Lopez. Vitals reviewed. Physical exam reveals an ill-appearing black female in no acute distress. Abdomen is firm, distended, tender in the periumbilical area. No CVA tenderness noted. He was administered 500 mL and S , 4 mg morphine, 4 zofran IV. CBC: WBC 9.8, hemoglobin 9.9, hematocrit 32.2. Coags: INR 0.9. CBC: BUN 33, creatinine 2.75, GFR 21 LFTs: AST 63, ALT 155, alkaline phosphatase 155 Lipase: 197. UA: Rare bacteria, no culture indicated. CT abdomen and pelvis: Markedly distended gallbladder with induration of the pericolic fat, concern for cholecystitis. On recheck patient states nausea has resolved, complains of lingering abdominal pain. Discussed the results of the workup with the patient and her family as well as need for surgery. She is agreeable to admission. Dr. Wolff spoke with Dr. Serrato who would like the patient admitted to medicine. Patient was administered IV Zosyn. I spoke with Dr. West who agrees to accept the patient to the medicine service. Please see medicine and surgery notes for disposition. Diagnosis Primary Impression: Cholecystitis Admitting Information Admitting Physician Requests: Admit Lou Kumar Feb 05, 2017 16:44
[2017-02-05] MEDS ORDERED: SODIUM CHLORID 0.9% 500 ML INJ 500 ML IV ONE (17:00)
[2017-02-05] MEDS ORDERED: MORPHINE SULFATE 4 MG/ML INJ IV PUSH ONE ×2 (17:00→19:00)
--- NOTE | 2017-02-05 18:43 | RADRPT ---
EXAM DATE/TIME: 02/05/2017 18:15 [facility] COMPARISON: No previous studies available for comparison. INDICATIONS : Abdomen pain starting last night,nausea vomiting ORAL CONTRAST: No oral contrast ingested. RADIATION DOSE: 16.31 CTDIvol (mGy) MEDICAL HISTORY : Cardiovascular disease. Hypertension. Renal failure, chronic.CHF SURGICAL HISTORY : None. ENCOUNTER: Initial ACUITY: 1 day PAIN SCALE: 10/10 LOCATION: ABDOMEN TECHNIQUE: Volumetric scanning of the abdomen and pelvis was performed. Using automated exposure control and ad justment of the mA and/or kV according to patient size, radiation dose was kept as low as reasonably achievable to obtain optimal diagnostic quality images. DICOM format image data is available electro nically for review and comparison. FINDINGS: There is atelectasis of the left lung base and a tiny left pleural effusion. The osseous structures a re intact. No pleural effusions. Trace pericardial effusion. The gallbladder is markedly distended an d there is gallbladder wall edema identified. There is high attenuation seen within the gallbladder l umen. This may represents a large amount of sludge versus hemorrhage. Adrenals, kidneys, urinary blad penelope, uterus and ovaries are unremarkable. No evidence of bowel obstruction. Stomach is unremarkable. The appendix is normal. There is no adenopathy or aneurysm. Pancreas normal. CONCLUSION: 1. Gallbladder is abnormal. It is markedly distended with gallbladder wall thickening and mild indura tion of the pericholecystic fat concerning for cholecystitis. High attenuation within the gallbladder lumen may be related to sludge or clot. 2. Left basilar atelectasis and tiny left effusion. Juan De Souza MD on February 05, 2017 at 18:39 Board Certified Radiologist. This report was verified electronically.
[2017-02-05] MEDS ORDERED: PIPERACIL-TAZO 3.375 GM PREMIX 50 ML IV ONE (18:45)
[2017-02-05 19:15] VITALS: BP 151/79; PULSE 88; RESP 17; O2SAT 98
[2017-02-05] MEDS ORDERED: SODIUM CHLORIDE 0.9% FLUSH 10 ML FLUSH IV FLUSH PRN (19:30)
[2017-02-05] MEDS ORDERED: DEXTROSE 50% IN WATER 50 ML VIAL(D50) IV PRN (19:30)
[2017-02-05] MEDS ORDERED: ACETAMINOPHEN 325 MG TAB PO PRN (19:30)
[2017-02-05] MEDS ORDERED: MAGNESIUM HYDROXIDE SUSP 30 ML CUP PO PRN (19:30)
[2017-02-05] MEDS ORDERED: BISACODYL 10 MG SUPP RECTAL PRN (19:30)
[2017-02-05] MEDS ORDERED: LACTULOSE SYRUP 20 GM/30 ML CUP PO PRN (19:30)
[2017-02-05] MEDS ORDERED: GLUCAGON 1 MG/ML VIAL OTHER PRN (19:30)
[2017-02-05] MEDS ORDERED: SENNOSIDES 8.6 MG TAB PO PRN (19:30)
--- NOTE | 2017-02-05 19:32 | HHI.HP ---
[facility] Service [facility] Primary Care Physician Luz Lopez MD Admission Diagnosis cholecystitis Diagnoses: (1) Cholecystitis Diagnosis: Principal (2) Elevated LFTs Diagnosis: Principal (3) Renal insufficiency Diagnosis: Principal (4) CHF (congestive heart failure) Diagnosis: Principal (5) DM (diabetes mellitus) Diagnosis: Principal Travel History International Travel<30 Days: No Contact w/Intl Traveler <30 Da: No Traveled to Known Affected Are: No History of Present Illness This is a 66-year-old female with a PMH of HTN, CHF (Echo 12/17/16 w/ EF 30-35%) , CKD Stage IV, Chronic Anemia and Thalassemia who presented to the ER w/ complaints of abdominal pain, nausea and vomiting since last night. Denies fever, chills or diarrhea. On arrival, BP 150/72, HR 97, O2 sat 99% on RA, Temp 99.0. CBC at baseline. Creatinine 2.75, previously 3.04 on 12/29/16. LFTs mildly elevated comparison to previous. UA negative. CT Abd/Pelvis w/ abnormal gallbladder, markedly distended gallbladder with wall thickening and mild induration of pericholecystic fat concerning for cholecystitis. Dr. Serrato consulted by ER physician, plan is for surgical intervention in am. S/p Zosyn in ER. Review of Systems Except as stated in HPI: all other systems reviewed are Neg ROS: 14 point review of systems otherwise negative. Past Family Social History Past Medical History PMH: HTN, CHF (Echo 12/17/16 w/ EF 30-35%), CKD Stage IV, Chronic Anemia and Thalassemia Past Surgical History PAST SURGICAL HISTORY: Eye Surgery Allergies: Coded Allergies: Lisinopril (Unverified Allergy, Intermediate, Cough, 01/19/17) Family History PAST FAMILY HISTORY: Reviewed. No h/o DM or CAD Social History PAST SOCIAL HISTORY: Negative for alcohol, tobacco or drugs. Physical Exam Vital Signs Vital Signs Date Time Temp Pulse Resp B/P Pulse Ox O2 Delivery O2 Flow Rate FiO2 02/05/17 19:24 18 02/05/17 19:15 88 17 151/79 98 Room Air 7/20/17 18:58 18 02/05/17 12:35 99.0 97 24 158/72 99 Room Air Physical Exam PE: GENERAL: Pleasant middle-aged white female in no acute distress. at bedside. HEENT: PERRLA, EOMI. No scleral icterus or conjunctival pallor. No lid lag or facial droop. CARDIOVASCULAR: Regular rate and rhythm. No obvious murmurs to auscultation. No chest tenderness to palpation. RESPIRATORY: No obvious rhonchi or wheezing. Clear to auscultation. Breath sounds equal bilaterally. GASTROINTESTINAL: Abdomen soft, RUQ tenderness palpation, nondistended. BS normal. MUSCULOSKELETAL: Extremities without clubbing, cyanosis, or edema. No obvious deformities. NEUROLOGICAL: Awake, alert and oriented x4. No focal neurologic deficits. Moving both upper and lower extremities spontaneously. Laboratory Laboratory Tests Test 02/05/17 02/05/17 02/05/17 10:45 13:05 13:10 White Blood Count 9.8 Red Blood Count 4.79 Hemoglobin 9.9 Hematocrit 32.2 Mean Corpuscular Volume 67.2 Mean Corpuscular Hemoglobin 20.7 Mean Corpuscular Hemoglobin 30.8 Concent Red Cell Distribution Width 16.3 Platelet Count 257 Mean Platelet Volume 8.4 Neutrophils (%) (Auto) 78.7 Lymphocytes (%) (Auto) 14.3 Monocytes (%) (Auto) 5.8 Eosinophils (%) (Auto) 0.9 Basophils (%) (Auto) 0.3 Neutrophils # (Auto) 7.7 Lymphocytes # (Auto) 1.4 Monocytes # (Auto) 0.6 Eosinophils # (Auto) 0.1 Basophils # (Auto) 0.0 CBC Comment DIFF FINAL Differential Comment Prothrombin Time 10.0 Prothromb Time International 0.9 Ratio Activated Partial 28.0 Thromboplast Time Sodium Level 139 Potassium Level 5.0 Chloride Level 109 Carbon Dioxide Level 22.8 Anion Gap 7 Blood Urea Nitrogen 33 Creatinine 2.75 Estimat Glomerular Filtration 21 Rate Random Glucose 145 Calcium Level 9.0 Total Bilirubin 0.3 Aspartate Amino Transf 63 (AST/SGOT) Alanine Aminotransferase 155 (ALT/SGPT) Alkaline Phosphatase 155 Total Protein 8.8 Albumin 3.4 Lipase 197 Urine Color LIGHT-YELLOW Urine Turbidity CLEAR Urine pH 5.5 Urine Specific [place] 1.011 Urine Protein 30 Urine Glucose (UA) NEG Urine Ketones NEG Urine Occult Blood SMALL Urine Nitrite NEG Urine Bilirubin NEG Urine Urobilinogen LESS THAN 2.0 Urine Leukocyte Esterase NEG Urine RBC 1 Urine WBC LESS THAN 1 Urine Squamous Epithelial 2 Cells Urine Bacteria RARE Microscopic Urinalysis Comment CULT NOT INDICATED Result Diagram: 02/05/17 1045 02/05/17 1305 Assessment and Plan Problem List: (1) Cholecystitis ICD Code: K81.9 Status: Acute (2) Elevated LFTs ICD Code: R79.89 Status: Acute (3) Renal insufficiency ICD Code: N28.9 Status: Acute (4) CHF (congestive heart failure) ICD Code: I50.9 Status: Chronic (5) DM (diabetes mellitus) ICD Code: E11.9 Status: Acute Assessment and Plan A/P: 1. Cholecystitis: Acute Cholecystitis, c/o abdominal pain/nausea/vomiting since last evening. CT Abd/Pelvis w/ markedly abnormal gallbladder and wall thickening concerning for cholecystitis, images reviewed by me. Dr. Serrato consulted by ER physician, plan is for surgical intervention in am. Keep NPO, IVF, analgesics/antiemetics as needed. Pt has multiple comorbidities and would be higher risk for surgical intervention, however there is no apparent contraindication to surgical intervention at this time. Pre-op labs essentially unremarkable. Will obtain pre-op EKG and CXR for further eval. 2. Elevated LFTs: Mild, LFTs elevated in comparison to previous labs, secondary to above. Will recheck labs in am. 3. Renal Insufficiency: CKD Stage IV. Creatinine 2.75, previously 3.04 on 07/05. Will monitor. 4. DM: Sliding scale w/ Accu-Cheks. Decrease Lantus while NPO. 5. DVT Prophylaxis: SCD/Teds. 6. Social work for d/c planning as needed. 7. Case discussed w/ ER physician at length. Physician Certification 2 Midnight Certification Type: Admission for Inpatient Services Order for Inpatient Services The services are ordered in accordance with Medicare regulations or non- Medicare payer requirements, as applicable. In the case of services not specified as inpatient-only, they are appropriately provided as inpatient services in accordance with the 2-midnight benchmark. Estimated LOS (days): 2 days is the estimated time the patient will need to remain in the hospital, assuming treatment plan goals are met and no additional complications. Post-Hospital Plan: Not yet determined Skylar West MD Feb 05, 2017 19:32
[2017-02-05 20:00] VITALS: BP 136/77; PULSE 95; RESP 17; TEMP 97; O2SAT 97
[2017-02-05] MEDS: SODIUM CHLOR 0.9% 1000 ML INJ 1,000 ML IV SCH (20:26)
--- NOTE | 2017-02-05 20:30 | RADRPT ---
EXAM DATE/TIME: 02/05/2017 20:03 [facility] COMPARISON: CHEST SINGLE AP, December 19, 2016, 10:38. INDICATIONS : Evaluate for pneumonia, pneumothorax or communicable disease Pre op MEDICAL HISTORY : Congestive heart failure. SURGICAL HISTORY : None. ENCOUNTER: Initial ACUITY: 1 day PAIN SCORE: 0/10 LOCATION: chest FINDINGS: Cardiomegaly. Clear lungs. Osseous structures are intact. CONCLUSION: No acute disease. Juan De Souza MD on February 05, 2017 at 20:28 Board Certified Radiologist. This report was verified electronically.
[2017-02-05 20:55] VITALS: BP 155/73; PULSE 93; RESP 18; O2SAT 96
[2017-02-05] MEDS: MORPHINE SULFATE 4 MG/ML INJ IV PRN (21:00)
[2017-02-05] MEDS: INSULIN ASPART SUPPLEMENTAL SCALE SQ SCH (21:06)
--- NOTE | 2017-02-05 21:58 | RADRPT ---
EXAM DATE/TIME: 02/05/2017 20:39 [facility] COMPARISON: CT ABDOMEN & PELVIS W/O CONTRAST, February 05, 2017, 18:15. INDICATIONS : Right upper quadrant pain. MEDICAL HISTORY : Hypercholesterolemia. Hypertension. . Retinal detachment. Congestive heart failure. Hyperlip idemia. Pneumonia. Bronchitis. Stage 4 renal disease. Diabetes. Sickle cell trait. Anemia. Measles. B lood transfusion. SURGICAL HISTORY : Cataract removal. Bilateral lens replacement. ENCOUNTER: Initial ACUITY: 1 day PAIN SCORE: 10/10 LOCATION: Right upper quadrant MEASUREMENTS: LIVER: 15.0 cm length COMMON DUCT: 6 mm RIGHT KIDNEY: 9.6 x 4.6 x 4.9 cm FINDINGS: LIVER: Normal echotexture without focal lesion or ductal dilatation. COMMON DUCT: No intraluminal mass or stone visualized. GALLBLADDER: There is marked distention of the gallbladder up to 13.1 cm in length. There is prominent shadowing a nd increased echotexture occupying the lumen of the gallbladder. There is wall thickening up to 6 mm. Wall echo shadow sign noted. PANCREAS: The visualized portions are within normal limits. RIGHT KIDNEY: No evidence of hydronephrosis, stone, or mass. It is small in size. CONCLUSION: 1. The gallbladder is abnormal with findings corresponding to the findings on the CT exam. There is w all thickening, marked distention and the lumen is occupied by echogenic shadowing material which may reflect sludge or hemorrhage. A few stones are suspected. Juan De Souza MD on February 05, 2017 at 21:54 Board Certified Radiologist. This report was verified electronically.
[2017-02-05] MEDS: SODIUM CHLORIDE 0.9% FLUSH 10 ML FLUSH IV FLUSH SCH (22:02)
[2017-02-05] MEDS: ONDANSETRON HCL 4 MG/2 ML VIAL IVP PRN (22:03)
[2017-02-05] MEDS: CARVEDILOL 3.125 MG TAB PO SCH (22:07)
[2017-02-05] MEDS: DOCUSATE SODIUM 50 MG/SENNA 8.6 MG TAB PO SCH (22:07)
[2017-02-06] VITALS (8 sets, daily range): BP systolic 118–154; BP diastolic 55–90; PULSE 83–102; RESP 17–19; TEMP 97.7–98.7; O2SAT 89–100
[2017-02-06] MEDS: PIPERACIL-TAZO 2.25 GM PREMIX 50 ML IV SCH ×5 (00:32→23:19)
[2017-02-06] MEDS: MORPHINE SULFATE 4 MG/ML INJ IV PRN ×5 (00:33→17:47)
[2017-02-06] MEDS: ONDANSETRON HCL 4 MG/2 ML VIAL IVP PRN ×2 (04:19→17:46)
[2017-02-06] MEDS: SODIUM CHLOR 0.9% 1000 ML INJ 1,000 ML IV SCH (04:19)
[2017-02-06 05:42] LABS: ALT (GPT) 152 U/L (10-53); ANION GAP 10 MEQ/L (5-15); AST (GOT) 73 U/L (15-37); BICARBONATE 18.7 MEQ/L (21.0-32.0); BLOOD UREA NITROGEN 35 MG/DL (7-18); CHLORIDE 109 MEQ/L (98-107); GLOMERULAR FILTRATION RATE 22 ML/MIN (>89); POTASSIUM 5.8 MEQ/L (3.5-5.1); SODIUM (NA) 138 MEQ/L (136-145)
[2017-02-06 05:44] LABS: ALKALINE PHOSPHATASE 157 U/L (45-117); TOTAL BILIRUBIN ADULT 0.6 MG/DL (0.2-1.0)
[2017-02-06 05:50] LABS: AUTOMATED NEUTROPHIL # 13.3 TH/MM3 (1.8-7.7); BASOPHIL # 0.1 TH/MM3 (0-0.2); BASOPHIL % 0.9 % (0.0-2.0); EOSINOPHIL % 0.1 % (0.0-4.0); HEMATOCRIT 34.1 % (35.0-46.0); HEMO FLAGS DIFF FINAL; LYMPH % 5.8 % (9.0-44.0); LYMPHOCYTE # 0.9 TH/MM3 (1.0-4.8); MEAN CELL VOLUME 67.4 FL (80.0-100.0); MEAN CORPUSCULAR HEMOGLOBIN 20.8 PG (27.0-34.0); MEAN CORPUSCULAR HGB CONC 30.9 % (32.0-36.0); NEUT % 86.2 % (16.0-70.0); PLATELET COUNT 231 TH/MM3 (150-450); RED BLOOD COUNT 5.06 MIL/MM3 (4.00-5.30); RED CELL DISTRIBUTION WIDTH 16.4 % (11.6-17.2); WHITE BLOOD COUNT 15.5 TH/MM3 (4.0-11.0)
[2017-02-06] MEDS: INSULIN ASPART SUPPLEMENTAL SCALE SQ SCH ×4 (06:10→22:02)
[2017-02-06] MEDS ORDERED: PROMETHAZINE HCL 25 MG TAB PO ONE (07:00)
--- NOTE | 2017-02-06 07:32 | RADRPT ---
EXAM DATE/TIME: 02/06/2017 07:17 [facility] COMPARISON: CHEST SINGLE AP, February 05, 2017, 20:03. INDICATIONS : Short of breath. MEDICAL HISTORY : Cardiovascular disease. Hypertension. Renal failure, chronic.CHF SURGICAL HISTORY : None. ENCOUNTER: Subsequent ACUITY: 2 days PAIN SCORE: 0/10 LOCATION: Bilateral chest FINDINGS: Airspace disease with interstitial vascular prominence has developed throughout both lungs. There are small bilateral effusions. Heart and mediastinal structures are stable. CONCLUSION: Bilateral airspace disease and interstitial vascular prominence has developed which is characteristic of pulmonary congestion. Small bilateral fusions. Melquiades Stafford MD on February 06, 2017 at 7:30 Board Certified Radiologist. This report was verified electronically.
[2017-02-06] MEDS: CARVEDILOL 3.125 MG TAB PO SCH ×2 (07:57→21:57)
[2017-02-06] MEDS: DOCUSATE SODIUM 50 MG/SENNA 8.6 MG TAB PO SCH ×2 (07:57→21:57)
[2017-02-06] MEDS: SODIUM CHLORIDE 0.9% FLUSH 10 ML FLUSH IV FLUSH SCH ×2 (07:59→21:57)
[2017-02-06] MEDS: INSULIN DETEMIR 100 UNITS/ML VIAL SQ SCH (07:59)
--- NOTE | 2017-02-06 08:34 | MB ---
cc: LEONID REHMAN MD DATE OF CONSULTATION 02/05/2017 REASON FOR CONSULTATION Right upper quadrant abdominal pain, rule out acute cholecystitis. HISTORY OF PRESENT ILLNESS The patient is a 66-year-old female who presents with multiple medical issues including CHF with an ejection fraction of 30%, chronic kidney disease, thalassemia, and hypertension. She complains of acute onset of abdominal pain. She states the pain has gotten worse and started this morning located in the right upper quadrant and radiating to the back. The patient states the pain is sharp. This was a 8/9 and currently is a 4/10 and she has had this pain so severe in her life. She had further workup including lab values showing a creatinine 2.7, an AST, ALT which were elevated along with a elevated alkaline phosphatase and a normal total bilirubin. She had CT scan with a markedly dilated thickened gallbladder wall concern for pericholecystic fluid, concern for cholecystitis. Surgery was consulted for further evaluation. On my exam, she is having some pin-point right upper quadrant tenderness. She has had multiple episodes of nausea and vomiting and states pain is pretty severe. PAST MEDICAL HISTORY 1. Hypertension 2. CHF 3. Echo with ejection fraction of 30% 4. Chronic kidney disease stage IV 5. Chronic anemia 6. Thalassemia PAST SURGICAL HISTORY Eye surgery ALLERGIES LISINOPRIL FAMILY HISTORY Denies diabetes or hypertension. SOCIAL HISTORY Denies smoking, ETOH or IVDA. REVIEW OF SYSTEMS GENERAL: The patient denies headaches. HEENT: Denies eye pain or ear pain. NECK: Denies swelling or pain. LUNGS: Denies current cough or wheeze. HEART: S1-S2, regular rhythm. ABDOMEN: Soft, positive tenderness to palpation right upper quadrant. No rebound. EXTREMITIES: Warm, well-perfused. SKIN: No obvious masses or lesions. : Within normal limits. NEUROLOGIC: Awake, alert x3. 5/5 motor all extremities. PSYCH: Good insight, good judgment. VITAL SIGNS: Temperature 99, pulse 97, respirations 24, blood pressure 158/72, 99% saturation. LABORATORY DIAGNOSTIC STUDY WBC 9.8, hemoglobin 9.9, hematocrit 32.2, platelets 257. Sodium 139, potassium 5, chloride 109, BUN 33, creatinine 2.7, glucose 145, AST 63, ALT 155, alk phos 155, lipase 197. CT scan reviewed by myself, gallbladder abnormal, markedly distended, thickened with mild induration, pericholecystic fluid, sludge in the gallbladder. ASSESSMENT Patient is a 66-year-old female with multiple medical issues including CHF and presents with a concern for cholelithiasis with acute cholecystitis on non-contrasted CT. PLAN A full clinical and radiologic laboratory workup, the patient with the above-named issues. I agree we will start IV antibiotics, and pain control. Initially, the patient needs to be n.p.o. We will obtain an ultrasound to further evaluate the gallbladder. The patient would likely benefit from a cholecystostomy tube as the patient appears to be high risk for a surgical intervention. We will discuss with the medical and cardiac team regarding a risk assessment for possible surgical intervention. This was discussed with staff at bedside. We will recheck labs in the a.m. Pain control. We will continue to follow. MD JUWAN Chaparro/[place] /11:41 PM /8:25 AM
[2017-02-06] MEDS ORDERED: INSULIN DETEMIR 100 UNITS/ML VIAL SQ SCH (09:00)
--- NOTE | 2017-02-06 10:03 | HHI.PR ---
Subjective Remarks This is a 66-year-old female with a PMH of HTN, CHF (Echo 12/17/16 w/ EF 30-35%) , CKD Stage IV, Chronic Anemia and Thalassemia who presented to the ER w/ complaints of abdominal pain, nausea and vomiting since last night. Denies fever, chills or diarrhea. On arrival, BP 150/72, HR 97, O2 sat 99% on RA, Temp 99.0. CBC at baseline. Creatinine 2.75, previously 3.04 on 12/29/16. LFTs mildly elevated comparison to previous. UA negative. CT Abd/Pelvis w/ abnormal gallbladder, markedly distended gallbladder with wall thickening and mild induration of pericholecystic fat concerning for cholecystitis. Dr. Serrato consulted by ER physician, plan is for surgical intervention in am. S/p Sherri in ER. 02/06: patient seen by General strategic planning specialist and recommended for Laparoscopic Cholecystectomy later today, at this time seen in her bedroom in the presence of female nurse Miss Connell, the patient does not want to talk, has not edema , mild JVD, has bilateral inspiratory crackles on both bases, on Oxygen by simple mask at 9 L/min. maintain good oxygen saturation, My concern is related to volume overload, will hold the IV fluids she is at 100 ml per hour that was decreased to 50 ml per hour and now on hold and giving Lasix 40 mg one dose and follow BNP and consult Nephrology specialist. has nausea and vomit, no diarrhea. Objective Vital Signs Date Time Temp Pulse Resp B/P Pulse Ox O2 Delivery O2 Flow Rate FiO2 02/06/17 08:00 98.1 102 19 154/90 89 02/06/17 07:20 92 Non-Rebreather 9.00 02/06/17 06:30 94 Simple Mask 10.00 02/06/17 04:00 97.7 95 19 143/71 96 02/06/17 00:00 98.7 86 17 147/79 97 02/05/17 20:55 93 18 155/73 96 Room Air 02/05/17 20:00 97.0 95 17 136/77 97 02/05/17 19:24 18 02/05/17 19:15 88 17 151/79 98 Room Air 02/05/17 18:58 18 02/05/17 12:35 99.0 97 24 158/72 99 Room Air I/O 02/05/17 02/05/17 02/05/17 02/06/17 02/06/17 02/06/17 06:59 14:59 22:59 06:59 14:59 22:59 Intake Total 164 ml 0 ml 788 ml Output Total 100 ml 80 ml Balance 64 ml 0 ml 708 ml Intake Oral 0 ml 0 ml IV Total 164 ml 788 ml Output Urine Total 0 ml Emesis 100 ml 80 ml # Voids 2 Result Diagram: 02/06/17 0447 02/06/17 0447 Imaging Last Impressions Chest X-Ray 02/06/17 0000 Signed Impressions: Service Date/Time: Monday, February 06, 2017 07:17 - CONCLUSION: Bilateral airspace disease and interstitial vascular prominence has developed which is characteristic of pulmonary congestion. Small bilateral fusions. Melquiades Stafford MD Abdomen/Pelvis CT 02/05/17 1656 Signed Impressions: Service Date/Time: January 18:15 - CONCLUSION: 1. Gallbladder is abnormal. It is markedly distended with gallbladder wall thickening and mild induration of the pericholecystic fat concerning for cholecystitis. High attenuation within the gallbladder lumen may be related to sludge or clot. 2. Left basilar atelectasis and tiny left effusion. Juan De Souza MD Gall Bladder Ultrasound 02/05/17 0000 Signed Impressions: Service Date/Time: January 20:39 - CONCLUSION: 1. The gallbladder is abnormal with findings corresponding to the findings on the CT exam. There is wall thickening, marked distention and the lumen is occupied by echogenic shadowing material which may reflect sludge or hemorrhage. A few stones are suspected. Juan De Souza MD Procedures None Other Results Laboratory Tests Test 02/05/17 02/05/17 02/06/17 13:05 13:10 04:47 Prothrombin Time 10.0 SEC Prothromb Time International 0.9 RATIO Ratio Activated Partial 28.0 SEC Thromboplast Time Lipase 197 U/L Urine Color LIGHT-YELLOW Urine Turbidity CLEAR Urine pH 5.5 Urine Specific [place] 1.011 Urine Protein 30 mg/dL Urine Glucose (UA) NEG mg/dL Urine Ketones NEG mg/dL Urine Occult Blood SMALL Urine Nitrite NEG Urine Bilirubin NEG Urine Urobilinogen LESS THAN 2.0 MG/DL Urine Leukocyte Esterase NEG Urine RBC 1 /hpf Urine WBC LESS THAN 1 /hpf Urine Squamous Epithelial 2 /hpf Cells Urine Bacteria RARE /hpf Microscopic Urinalysis Comment CULT NOT INDICATED White Blood Count 15.5 TH/MM3 Red Blood Count 5.06 MIL/MM3 Hemoglobin 10.6 GM/DL Hematocrit 34.1 % Mean Corpuscular Volume 67.4 FL Mean Corpuscular Hemoglobin 20.8 PG Mean Corpuscular Hemoglobin 30.9 % Concent Red Cell Distribution Width 16.4 % Platelet Count 231 TH/MM3 Mean Platelet Volume 9.1 FL Neutrophils (%) (Auto) 86.2 % Lymphocytes (%) (Auto) 5.8 % Monocytes (%) (Auto) 7.0 % Eosinophils (%) (Auto) 0.1 % Basophils (%) (Auto) 0.9 % Neutrophils # (Auto) 13.3 TH/MM3 Lymphocytes # (Auto) 0.9 TH/MM3 Monocytes # (Auto) 1.1 TH/MM3 Eosinophils # (Auto) 0.0 TH/MM3 Basophils # (Auto) 0.1 TH/MM3 CBC Comment DIFF FINAL Differential Comment Sodium Level 138 MEQ/L Potassium Level 5.8 MEQ/L Chloride Level 109 MEQ/L Carbon Dioxide Level 18.7 MEQ/L Anion Gap 10 MEQ/L Blood Urea Nitrogen 35 MG/DL Creatinine 2.65 MG/DL Estimat Glomerular Filtration 22 ML/MIN Rate Random Glucose 227 MG/DL Calcium Level 8.9 MG/DL Total Bilirubin 0.6 MG/DL Aspartate Amino Transf 73 U/L (AST/SGOT) Alanine Aminotransferase 152 U/L (ALT/SGPT) Alkaline Phosphatase 157 U/L Total Protein 8.5 GM/DL Albumin 3.1 GM/DL Objective Remarks GENERAL: No acute distress at this time, do not talk HEENT: PERRLA, EOMI. No scleral icterus or conjunctival pallor. No lid lag or facial droop. CARDIOVASCULAR: Regular rate and rhythm. No obvious murmurs to auscultation. No chest tenderness to palpation. RESPIRATORY: Decreased breath sounds bilateral and bilateral inspiratory wheezing. GASTROINTESTINAL: Abdomen soft, RUQ tenderness palpation, nondistended. BS normal. MUSCULOSKELETAL: Extremities without clubbing, cyanosis, or edema. No obvious deformities. NEUROLOGICAL: Awake, alert not able to assess if is oriented due to that do not want to talk. Medications and IVs Current Medications Medications (Trade) Dose Ordered Sig/Lo Route Start Time Stop Time Status Last Admin (D50w (Vial) Inj) 50 ml UNSCH PRN IV 02/05/17 19:30 Glucagon 1 mg 1 mg UNSCH PRN OTHER 02/05/17 19:30 Piperacillin Sod/ Tazobactam Sod 50 ml @ 100 mls/hr Q6H IV 02/06/17 00:00 02/06/17 05:58 (NS 1000 ml Inj) 1,000 ml @ 50 mls/hr Q20H IV 02/05/17 19:16 02/06/17 04:19 (NS Flush) 2 ml UNSCH PRN IV FLUSH 02/05/17 19:30 (NS Flush) 2 ml BID IV FLUSH 02/05/17 21:00 02/06/17 07:59 (Zofran Inj) 4 mg Q6H PRN IVP 02/05/17 19:30 02/06/17 04:19 (Tylenol) 650 mg Q6H PRN PO 02/05/17 19:30 (Morphine Inj) 2 mg Q3H PRN IV 02/05/17 19:30 02/06/17 07:59 (Roxicodone) 5 mg Q4H PRN PO 02/05/17 19:30 (Terese-Colace) 1 tab BID PO 02/05/17 21:00 02/06/17 07:57 (Milk Of Magnesia Liq) 30 ml Q12H PRN PO 02/05/17 19:30 02/06/17 07:59 (Senokot) 17.2 mg Q12H PRN PO 02/05/17 19:30 (Dulcolax Supp) 10 mg DAILY PRN RECTAL 02/05/17 19:30 (Lactulose Liq) 30 ml DAILY PRN PO 02/05/17 19:30 (Norvasc) 10 mg DAILY PO 02/06/17 09:00 02/06/17 07:57 (Coreg) 3.125 mg Q12HR PO 02/05/17 21:00 02/06/17 07:57 (Zanaflex) 4 mg TID PO 02/06/17 09:00 02/06/17 07:57 (Levemir Inj) 10 units DAILY SQ 02/06/17 09:00 A/P Assessment and Plan 1. Cholecystitis: Acute Cholecystitis, c/o abdominal pain/nausea/vomiting since last evening. CT Abd/Pelvis w/ markedly abnormal gallbladder and wall thickening concerning for cholecystitis, for Laparoscopic Cholecystectomy later today. continue Zosyn. 2. Elevated LFTs: Mild, LFTs elevated in comparison to previous labs, secondary to above. 3. Renal Insufficiency: CKD Stage IV. Creatinine 2.75, previously 3.04 on 07/05. Will monitor. consult Nephrology specialist Doctor Joey saw her in the past. 4. DM: Sliding scale w/ Accu-Cheks. Decrease Lantus while NPO. 5. CHF EF 30-35%, will follow BNP and asked to hold IV fluids and give one dose of Lasix 40 mg one dose. 6. Respiratory insufficiency probable related to volume overload will get new BNP and follow after Furosemide given, continue Bronchodilator Mucolytic and Incentive spirometry. DVT Prophylaxis: SCD/Teds. Social work for d/c planning as needed. Josue Keller MD Feb 06, 2017 10:03
[2017-02-06] MEDS ORDERED: FUROSEMIDE 40 MG/4 ML VIAL IV PUSH ONE (11:00)
--- NOTE | 2017-02-06 11:26 | MB ---
cc: AURORA GORDON MD DATE OF CONSULTATION: 02/06/2017 REASON FOR CONSULTATION Elevated BUN and creatinine with history of chronic kidney disease. HISTORY OF PRESENT ILLNESS This is a 66-year-old female with a past medical history of hypertension, diabetes mellitus, chronic kidney disease, anemia and chronic back pain, who was admitted because of abdominal pain, nausea and vomiting. I was called to see the patient because of elevated BUN and creatinine. The patient has known history of chronic kidney disease and she had acute kidney injury. I saw her when she was here last month and her creatinine was as high as 3.8 and it was improving. When she left it was 3.0. Now she came in with a creatinine of 2.6 to 2.7. This is probably her baseline. The patient has underlying chronic kidney disease most likely because of hypertensive or diabetic renal disease. She came in mainly because of upper abdominal pain associated with nausea and vomiting. The patient is diagnosed here with acute cholecystitis with a distended gallbladder. The patient was seen by surgery and recommend to continue antibiotics and possibly will need a cholecystectomy. The patient is currently sitting in the chair. She is not in acute distress. She is still having nausea. She is n.p.o. PAST MEDICAL HISTORY 1. Hypertension. 2. Diabetes mellitus. 3. Chronic kidney disease. 4. Hyperlipidemia. PAST SURGICAL HISTORY History of eye surgery. REVIEW OF SYSTEMS The patient is still having nausea and upper abdominal pain. She has mild shortness of breath. There is no chest pain, no palpitations. No history of diarrhea. No fever. SOCIAL HISTORY No history of smoking or alcoholism. FAMILY HISTORY Noncontributory. ALLERGIES LISINOPRIL. MEDICATIONS Currently she is on the following medications: 1. Amlodipine 10 mg once a day. 2. Terese-Colace, one tablet b.i.d. 3. Levemir 10 units subcu daily. 4. Furosemide 40 mg; one dose was given this morning. 5. Carvedilol 3.125 mg q.12h. 6. Zosyn 2.25 grams IV q.6h. 7. Insulin sliding scale. 8. Tylenol as needed. 9. Dulcolax as needed. PHYSICAL EXAMINATION GENERAL: The patient is awake, sitting in the chair in mild respiratory distress complaining of nausea. VITAL SIGNS: Her last blood pressure was 154/90, temperature 98.1. Oxygen saturation on nine liter simple mask is 89-92%. HEENT: Pupils are mid constricted. Non-icteric sclera. Conjunctiva pale. NECK: Supple. JVD is not elevated. LUNGS: Bilateral decreased air entry with basilar rales and diffuse wheezing. HEART: S1, S2, regular rhythm. ABDOMEN: Distended, soft, lax. There is epigastric and right upper quadrant tenderness. There is no rebound or rigidity. Bowel sounds positive. EXTREMITIES: There is 1+ edema. INVESTIGATIONS WBC count 15.5, hemoglobin 10.6, platelet count 231, neutrophils 86.2%. Sodium 138, potassium 5.8, chloride 109, bicarb 18.7, BUN 35, creatinine 2.6, glucose 227, AST 152, ALT 157, alkaline phosphatase 157, total protein 8.5, albumin 3.1, lipase 197. Urinalysis is showing protein of 30, small occult blood. IMAGING STUDIES The patient has a chest x-ray done which shows interstitial edema with increased vascular markings. CT scan of the abdomen and pelvis was done without IV contrast and shows gallbladder is abnormal, distended, mild wall thickening. Kidneys were reported as unremarkable. Previously she has an ultrasound of the kidney which shows medical renal disease with smaller size kidneys 8.6 and 9 cm. ASSESSMENT AND PLAN 1. Chronic kidney disease with acute kidney injury. 2. Hyperkalemia and metabolic acidosis. 3. Respiratory failure and shortness of breath with history of congestive heart failure. 4. Acute cholecystitis. 5. Anemia. 6. Diabetes mellitus. The patient has small size kidneys and mild proteinuria, most likely she has hypertensive renovascular or diabetic renal disease. Creatinine is probably at her baseline. She has some pulmonary congestion and received one dose of Lasix. Follow the urine output and the BUN and creatinine. I will give her one dose of sodium bicarb because of hyperkalemia and metabolic acidosis. Thank you for the consultation and I will follow the patient while she is in the hospital. Further recommendations will be given in due course. MD CYNTHIA Bunn/EMANUEL /10:54 AM /11:10 AM
[2017-02-06] MEDS ORDERED: SODIUM BICARBONATE 8.4% INJ 50 MEQ/50 ML SYR IV PUSH ONE (12:00)
--- NOTE | 2017-02-06 12:21 | HHI.PR ---
Subjective Subjective Notes Up to chair; lethargic Objective Vitals/I&O Vital Signs Date Time Temp Pulse Resp B/P Pulse Ox O2 Delivery O2 Flow Rate FiO2 02/06/17 11:05 100 Simple Mask 9.00 02/06/17 08:00 98.1 102 19 154/90 Labs Laboratory Tests Test 02/05/17 02/05/17 02/06/17 13:05 13:10 04:47 Prothrombin Time 10.0 Prothromb Time International 0.9 Ratio Activated Partial 28.0 Thromboplast Time Sodium Level 139 138 Potassium Level 5.0 5.8 Chloride Level 109 109 Carbon Dioxide Level 22.8 18.7 Anion Gap 7 10 Blood Urea Nitrogen 33 35 Creatinine 2.75 2.65 Estimat Glomerular Filtration 21 22 Rate Random Glucose 145 227 Calcium Level 9.0 8.9 Total Bilirubin 0.3 0.6 Aspartate Amino Transf 63 73 (AST/SGOT) Alanine Aminotransferase 155 152 (ALT/SGPT) Alkaline Phosphatase 155 157 Total Protein 8.8 8.5 Albumin 3.4 3.1 Lipase 197 Urine Color LIGHT-YELLOW Urine Turbidity CLEAR Urine pH 5.5 Urine Specific [place] 1.011 Urine Protein 30 Urine Glucose (UA) NEG Urine Ketones NEG Urine Occult Blood SMALL Urine Nitrite NEG Urine Bilirubin NEG Urine Urobilinogen LESS THAN 2.0 Urine Leukocyte Esterase NEG Urine RBC 1 Urine WBC LESS THAN 1 Urine Squamous Epithelial 2 Cells Urine Bacteria RARE Microscopic Urinalysis Comment CULT NOT INDICATED White Blood Count 15.5 Red Blood Count 5.06 Hemoglobin 10.6 Hematocrit 34.1 Mean Corpuscular Volume 67.4 Mean Corpuscular Hemoglobin 20.8 Mean Corpuscular Hemoglobin 30.9 Concent Red Cell Distribution Width 16.4 Platelet Count 231 Mean Platelet Volume 9.1 Neutrophils (%) (Auto) 86.2 Lymphocytes (%) (Auto) 5.8 Monocytes (%) (Auto) 7.0 Eosinophils (%) (Auto) 0.1 Basophils (%) (Auto) 0.9 Neutrophils # (Auto) 13.3 Lymphocytes # (Auto) 0.9 Monocytes # (Auto) 1.1 Eosinophils # (Auto) 0.0 Basophils # (Auto) 0.1 CBC Comment DIFF FINAL Differential Comment B-Type Natriuretic Peptide 765 Cardiovascular: Regular Lungs: Clear Abdomen: Other (RUQ tenderness with palpation ) Extremities: No edema Narrative Exam on 9L simple mask A/P Assessment and Plan 66 year old female with multiple comorbidities; acute cholecystitis -Recommend IR placement of a cholecystostomy tube -Continue Zosyn -Patient remains a poor surgical candidate -Dr. Serrato had a detailed conversation with the daughter and -Family to decide on cholecystostomy tube Attending Statement as above pt seen at bedside pt will benefit from cathy tube family and pt understands Attestation The exam, history, and the medical decision-making described in the above note were completed with the assistance of the mid-level provider. I reviewed and agree with the findings presented. I attest that I had a [id number] encounter with the patient on the same day, and personally performed and documented my assessment and findings in the medical record. Francine Rneae Feb 06, 2017 12:21 Freddy Serrato MD Feb 10, 2017 11:20
--- NOTE | 2017-02-06 14:58 | EKG ---
Date Performed: 02/05/2017 Time Performed: 12:58:33 PTAGE: 66 years EKG: Sinus rhythm LEFT BUNDLE BRANCH BLOCK ABNORMAL ECG PREVIOUS TRACING : 12/17/2016 16.05 Compared to prior tracing no significant change DOCTOR: Pancho Martini Interpretating Date/Time 02/06/2017 14:54:37
[2017-02-06] MEDS ORDERED: fentaNYL CITRATE 250 MCG/5 ML AMP ONE (15:18)
--- NOTE | 2017-02-06 16:09 | PD.RAD ---
Post Procedure Progress Note Pre Procedure Diagnosis: (1) Cholecystitis (2) Gallstones Post Procedure Diagnosis: (1) Cholecystitis (2) Gallstones Procedure Date: Feb 06, 2017 Supervising Radiologist: Kolby Hughes JR Proceduralist/Assist: Frank Osman, RT(R), Ronald Perez RT(R) Anesthesia: Conscious Sedation Plan of Activity Patient to Unit: Other Patient Condition: Good See PACS Report for procedural detail/treatment Drainage Procedure Procedure 1 Imaging Guidance: Fluoroscopy, Ultrasound Side: Right Procedure Type: Cholecystostomy Procedure: Placement [place]: 8 Fluid Description: Bilious Findings: Placed cathy tube. Very thick, inspissated bile. Relatively low output. Will check CT for positioning. Sample to micro Plan Drain must stay in for a minimum of 3 weeks Jr. Saul,Kolby Moore MD Feb 06, 2017 16:09
--- NOTE | 2017-02-06 16:44 | RADRPT ---
EXAM DATE/TIME: 02/06/2017 16:21 [facility] COMPARISON: CT ABDOMEN & PELVIS W/O CONTRAST, February 05, 2017, 18:15. INDICATIONS : Follow up on cholecystostomy tube placement. ORAL CONTRAST: No oral contrast ingested. RADIATION DOSE: 11.61 CTDIvol (mGy) MEDICAL HISTORY : Hypertension. Cardiovascular disease Diabetes mellitus type 2.Sickle cell trait. SURGICAL HISTORY : None. ENCOUNTER: Initial ACUITY: 1 day PAIN SCALE: 7/10 LOCATION: Bilateral upper quadrant TECHNIQUE: Volumetric scanning of the abdomen was performed. Using automated exposure control and adjustment of the mA and/or kV according to patient size, radiation dose was kept as low as reasonably achievable to obtain optimal diagnostic quality images. DICOM format image data is available electronically for review and comparison. FINDINGS: LOWER LUNGS: There are worsening parenchymal changes in the lung bases including groundglass opacity diffusely, no dular infiltrate and dependent atelectasis. Minimal effusion. LIVER: Stable appearance. Interval placement of a cholecystostomy tube which is in good position within the gallbladder lumen. There is also contrast injected at the time of the tube placement mixed with inspi ssated secretions. Mild pericholecystic edema present. SPLEEN: Normal size without lesion. PANCREAS: Within normal limits. KIDNEYS: Normal in size and shape. There is no mass, stone, or hydronephrosis. ADRENAL GLANDS: Within normal limits. AORTA/RETROPERITONEAL: There is no aneurysm or lymphadenopathy. BOWEL/MESENTERY: The stomach and visualized small and large bowel demonstrate no abnormality. MUSCULOSKELETAL: Within normal limits for patient age. CONCLUSION: Interval cholecystostomy tube placement. Worsening parenchymal disease in the lung bases. Ney Lutz MD on February 06, 2017 at 16:37 Board Certified Radiologist. This report was verified electronically.
[2017-02-06] MEDS ORDERED: IOHEXOL 350 MG/ML 50 ML BTL (for RAD DIAG) ONE (16:50)
[2017-02-07] VITALS (13 sets, daily range): BP systolic 80–99; BP diastolic 49–56; PULSE 84–107; RESP 15–20; TEMP 96.1–99.7; O2SAT 95–100
[2017-02-07] MEDS ORDERED: KETOROLAC TROMETHAMINE 30 MG/ML (IVP) VIAL IV PUSH ONE (04:45)
[2017-02-07] MEDS: PIPERACIL-TAZO 2.25 GM PREMIX 50 ML IV SCH ×4 (05:46→23:49)
[2017-02-07] MEDS: INSULIN ASPART SUPPLEMENTAL SCALE SQ SCH ×3 (05:59→21:15)
[2017-02-07] MEDS: DOCUSATE SODIUM 50 MG/SENNA 8.6 MG TAB PO SCH ×2 (08:34→20:11)
[2017-02-07] MEDS: CARVEDILOL 3.125 MG TAB PO SCH ×2 (08:34→20:11)
[2017-02-07] MEDS: SODIUM CHLORIDE 0.9% FLUSH 10 ML FLUSH IV FLUSH SCH ×2 (08:36→20:10)
[2017-02-07] MEDS: INSULIN DETEMIR 100 UNITS/ML VIAL SQ SCH (08:38)
--- NOTE | 2017-02-07 09:57 | HHI.PR ---
Subjective Remarks This is a 66-year-old female with a PMH of HTN, CHF (Echo 12/17/16 w/ EF 30-35%) , CKD Stage IV, Chronic Anemia and Thalassemia who presented to the ER w/ complaints of abdominal pain, nausea and vomiting since last night. Denies fever, chills or diarrhea. On arrival, BP 150/72, HR 97, O2 sat 99% on RA, Temp 99.0. CBC at baseline. Creatinine 2.75, previously 3.04 on 12/29/16. LFTs mildly elevated comparison to previous. UA negative. CT Abd/Pelvis w/ abnormal gallbladder, markedly distended gallbladder with wall thickening and mild induration of pericholecystic fat concerning for cholecystitis. Dr. Serrato consulted by ER physician, plan is for surgical intervention in am. S/p Sherri in ER. 02/06: patient seen by General child development specialist and recommended for Laparoscopic Cholecystectomy later today, at this time seen in her bedroom in the presence of female nurse Miss Connell, the patient does not want to talk, has not edema , mild JVD, has bilateral inspiratory crackles on both bases, on Oxygen by simple mask at 9 L/min. maintain good oxygen saturation, My concern is related to volume overload, will hold the IV fluids she is at 100 ml per hour that was decreased to 50 ml per hour and now on hold and giving Lasix 40 mg one dose and follow BNP and consult Nephrology specialist. 02/07: Stable seen in her bedroom in the presence of her Daughter Miss Johanny Meza she is a registered nurse and knows her Mother's Information and also her chronic pathologies in status post Cholecystostomy tube placed by IR, continue supportive care by General Surgery, antibiotics, diuretics, Nephrology following, her Primary word processing specialist Doctor Chase Edmonds. not in the case but her Hemoglobin 10.5 no need for blood transfusion at this time or Iron. Objective Vital Signs Date Time Temp Pulse Resp B/P Pulse Ox O2 Delivery O2 Flow Rate FiO2 02/07/17 08:54 95 Nasal Cannula 1.00 02/07/17 08:00 96.1 99 16 80/49 99 02/07/17 04:21 96 Nasal Cannula 2.00 02/07/17 04:20 104 20 92/54 96 02/07/17 04:00 97.2 104 19 97/56 97 02/07/17 02:36 89 02/07/17 00:30 98 Nasal Cannula 4.00 02/07/17 00:00 99.7 84 18 94/56 100 02/06/17 23:27 100 Simple Mask 7.00 02/06/17 20:00 97.9 83 18 118/55 98 02/06/17 17:15 99 Simple Mask 8.00 02/06/17 12:00 97.8 84 19 119/63 99 02/06/17 11:05 100 Simple Mask 9.00 I/O 02/06/17 02/06/17 02/06/17 02/07/17 02/07/17 02/07/17 06:59 14:59 22:59 06:59 14:59 22:59 Intake Total 0 ml 838 ml 170 ml 50 ml Output Total 80 ml 0 ml Balance 0 ml 758 ml 170 ml 50 ml Intake Oral 0 ml 0 ml 120 ml 0 ml IV Total 838 ml 50 ml 50 ml Output Urine Total 0 ml Emesis 80 ml Drainage Total 0 ml Bladder Scan Volume Amount 924 ml # Voids 2 0 0 # Bowel Movements 0 0 1 Result Diagram: 02/06/17 0447 02/06/17 0447 Imaging Last Impressions Chest X-Ray 02/06/17 0000 Signed Impressions: Service Date/Time: Monday, February 06, 2017 07:17 - CONCLUSION: Bilateral airspace disease and interstitial vascular prominence has developed which is characteristic of pulmonary congestion. Small bilateral fusions. Melquiades Stafford MD Abdomen CT 02/06/17 0000 Signed Impressions: Service Date/Time: Monday, February 06, 2017 16:21 - CONCLUSION: Interval cholecystostomy tube placement. Worsening parenchymal disease in the lung bases. Ney Lutz MD Abdomen/Pelvis CT 02/05/17 1656 Signed Impressions: Service Date/Time: January 18:15 - CONCLUSION: 1. Gallbladder is abnormal. It is markedly distended with gallbladder wall thickening and mild induration of the pericholecystic fat concerning for cholecystitis. High attenuation within the gallbladder lumen may be related to sludge or clot. 2. Left basilar atelectasis and tiny left effusion. Juan De Souza MD Gall Bladder Ultrasound 02/05/17 0000 Signed Impressions: Service Date/Time: January 20:39 - CONCLUSION: 1. The gallbladder is abnormal with findings corresponding to the findings on the CT exam. There is wall thickening, marked distention and the lumen is occupied by echogenic shadowing material which may reflect sludge or hemorrhage. A few stones are suspected. Juan De Souza MD Procedures None Other Results Laboratory Tests Test 02/05/17 02/05/17 02/06/17 13:05 13:10 04:47 Prothrombin Time 10.0 SEC Prothromb Time International 0.9 RATIO Ratio Activated Partial 28.0 SEC Thromboplast Time Lipase 197 U/L Urine Color LIGHT-YELLOW Urine Turbidity CLEAR Urine pH 5.5 Urine Specific [place] 1.011 Urine Protein 30 mg/dL Urine Glucose (UA) NEG mg/dL Urine Ketones NEG mg/dL Urine Occult Blood SMALL Urine Nitrite NEG Urine Bilirubin NEG Urine Urobilinogen LESS THAN 2.0 MG/DL Urine Leukocyte Esterase NEG Urine RBC 1 /hpf Urine WBC LESS THAN 1 /hpf Urine Squamous Epithelial 2 /hpf Cells Urine Bacteria RARE /hpf Microscopic Urinalysis Comment CULT NOT INDICATED White Blood Count 15.5 TH/MM3 Red Blood Count 5.06 MIL/MM3 Hemoglobin 10.6 GM/DL Hematocrit 34.1 % Mean Corpuscular Volume 67.4 FL Mean Corpuscular Hemoglobin 20.8 PG Mean Corpuscular Hemoglobin 30.9 % Concent Red Cell Distribution Width 16.4 % Platelet Count 231 TH/MM3 Mean Platelet Volume 9.1 FL Neutrophils (%) (Auto) 86.2 % Lymphocytes (%) (Auto) 5.8 % Monocytes (%) (Auto) 7.0 % Eosinophils (%) (Auto) 0.1 % Basophils (%) (Auto) 0.9 % Neutrophils # (Auto) 13.3 TH/MM3 Lymphocytes # (Auto) 0.9 TH/MM3 Monocytes # (Auto) 1.1 TH/MM3 Eosinophils # (Auto) 0.0 TH/MM3 Basophils # (Auto) 0.1 TH/MM3 CBC Comment DIFF FINAL Differential Comment Sodium Level 138 MEQ/L Potassium Level 5.8 MEQ/L Chloride Level 109 MEQ/L Carbon Dioxide Level 18.7 MEQ/L Anion Gap 10 MEQ/L Blood Urea Nitrogen 35 MG/DL Creatinine 2.65 MG/DL Estimat Glomerular Filtration 22 ML/MIN Rate Random Glucose 227 MG/DL Calcium Level 8.9 MG/DL Total Bilirubin 0.6 MG/DL Aspartate Amino Transf 73 U/L (AST/SGOT) Alanine Aminotransferase 152 U/L (ALT/SGPT) Alkaline Phosphatase 157 U/L B-Type Natriuretic Peptide 765 PG/ML Total Protein 8.5 GM/DL Albumin 3.1 GM/DL Objective Remarks GENERAL: Mild distress due to Pain as per patient continue with Abdominal pain. Hypotensive. HEENT: PERRLA, EOMI. No scleral icterus or conjunctival pallor. No lid lag or facial droop. Blindness. CARDIOVASCULAR: Regular rate and rhythm. No obvious murmurs to auscultation. No chest tenderness to palpation. RESPIRATORY: Decreased breath sounds, no wheezing, no crackles. GASTROINTESTINAL: Abdomen soft, RUQ tenderness palpation, nondistended. BS normal. MUSCULOSKELETAL: Extremities without clubbing, cyanosis, or edema. No obvious deformities. NEUROLOGICAL: Awake, alert answer questions without difficulty but keep her eyes closed. Medications and IVs Current Medications Medications (Trade) Dose Ordered Sig/Lo Route Start Time Stop Time Status Last Admin (D50w (Vial) Inj) 50 ml UNSCH PRN IV 02/05/17 19:30 Glucagon 1 mg 1 mg UNSCH PRN OTHER 02/05/17 19:30 Piperacillin Sod/ Tazobactam Sod 50 ml @ 100 mls/hr Q6H IV 02/06/17 00:00 02/07/17 05:46 (NS 1000 ml Inj) 1,000 ml @ 50 mls/hr Q20H IV 02/05/17 19:16 Hold 02/06/17 04:19 (NS Flush) 2 ml UNSCH PRN IV FLUSH 02/05/17 19:30 (NS Flush) 2 ml BID IV FLUSH 02/05/17 21:00 02/07/17 08:36 (Zofran Inj) 4 mg Q6H PRN IVP 02/05/17 19:30 02/06/17 17:46 (Tylenol) 650 mg Q6H PRN PO 02/05/17 19:30 (Roxicodone) 5 mg Q4H PRN PO 02/05/17 19:30 (Terese-Colace) 1 tab BID PO 02/05/17 21:00 02/07/17 08:34 (Milk Of Magnesia Liq) 30 ml Q12H PRN PO 02/05/17 19:30 02/06/17 07:59 (Senokot) 17.2 mg Q12H PRN PO 02/05/17 19:30 (Dulcolax Supp) 10 mg DAILY PRN RECTAL 02/05/17 19:30 (Lactulose Liq) 30 ml DAILY PRN PO 02/05/17 19:30 02/06/17 17:46 (Norvasc) 10 mg DAILY PO 02/06/17 09:00 02/06/17 07:57 (Coreg) 3.125 mg Q12HR PO 02/05/17 21:00 02/07/17 08:34 (Zanaflex) 4 mg TID PO 02/06/17 09:00 02/07/17 08:34 (Levemir Inj) 10 units DAILY SQ 02/06/17 09:00 02/07/17 08:38 (Morphine Inj) 1 mg Q4HR PRN IV 02/06/17 12:00 02/06/17 17:47 A/P Assessment and Plan 1. Cholecystitis: Acute Cholecystitis, c/o abdominal pain/nausea/vomiting since last evening. CT Abd/Pelvis w/ markedly abnormal gallbladder and wall thickening concerning for cholecystitis, continue Zosyn, not a good candidate for surgery status post Cholecystostomy tube placed by IR and draining well, continue supportive care. pain medicine IV was not given due to Hypotension. 2. Elevated LFTs: Mild, LFTs elevated in comparison to previous labs, secondary to above. 3. CKD Stage IV. Creatinine 2.75, previously 3.04 on 12/29/16. status post volume Overload parameters placed to Diuretics. Coreg and also on Amlodipine. 4. DM: Sliding scale w/ Accu-Cheks. continue sliding scale by now. 5. CHF EF 30-35%, will follow BNP and asked to hold IV fluids and give one dose of Lasix 40 mg one dose. 6. Respiratory insufficiency probable related to volume overload will get new BNP and follow after Furosemide given, continue Bronchodilator Mucolytic and Incentive spirometry. Improved. 7. Hypertension now hypotensive placed parameters to blood pressure medicines. DVT Prophylaxis: SCD/Teds. Discussed with Patient and her Daughter in the room Miss Johanny Meza and with nurse Miss Parkinson, all questions answered to the best of my abilities patient at this time asymptomatic if blood pressure decreases may need Intensive Care Unit admission. Discharge Planning Once cleared by specialists. Josue Keller MD Feb 07, 2017 09:57
[2017-02-07 12:30] LABS: POTASSIUM 5.2 MEQ/L (3.5-5.1)
--- NOTE | 2017-02-07 14:35 | HHI.NPPN ---
Subjective History of Present Illness 66-year-old female with a past medical history of hypertension, diabetes mellitus, chronic kidney disease, anemia and chronic back pain, who was admitted because of abdominal pain, nausea and vomiting. I was called to see the patient because of elevated BUN and creatinine. The patient has known history of chronic kidney disease and she had acute kidney injury. Additional Remarks Patient is in mild distress, with abd. discomfort, with nasal cannula, denies SOB. Objective Data Data 02/06/17 02/07/17 18:59 06:59 Intake Total 838 ml 220 ml Output Total 80 ml 0 ml Balance 758 ml 220 ml Intake Oral 0 ml 120 ml IV Total 838 ml 100 ml Output Urine Total 0 ml Emesis 80 ml Drainage Total 0 ml Bladder Scan Volume Amount 924 ml # Voids 0 # Bowel Movements 0 1 Vital Signs Date Time Temp Pulse Resp B/P Pulse Ox O2 Delivery O2 Flow Rate FiO2 02/07/17 12:02 18 02/07/17 12:00 96.2 88 17 92/52 99 02/07/17 08:54 95 Nasal Cannula 1.00 02/07/17 08:00 96.1 99 16 80/49 99 02/07/17 04:21 96 Nasal Cannula 2.00 02/07/17 04:20 104 20 92/54 96 02/07/17 04:00 97.2 104 19 97/56 97 02/07/17 02:36 89 02/07/17 00:30 98 Nasal Cannula 4.00 02/07/17 00:00 99.7 84 18 94/56 100 02/06/17 23:27 100 Simple Mask 7.00 02/06/17 20:00 97.9 83 18 118/55 98 02/06/17 17:15 99 Simple Mask 8.00 -: 02/06/17 0447 02/07/17 1126 Microbiology 02/06/17 Gram Stain - Final, Resulted 02/06/17 Body Fluid Culture - Preliminary, Resulted NO GROWTH IN 24 HOURS. Physical Exam General Appearance: Anxious Eyes Eye Exam: Pupils Equal Throat Throat Exam: Oral Mucosa [place] & Moist Neck Neck Exam: Neck Supple Pulmonary Resp Exam: Breath Sounds Equal, No Distress, Rhonchi, Decreased Bases Cardiology CV Exam: Regular, Normal Sinus Rhythm Gastrointestinal/Abdomen GI Exam: Soft, Bowel Sounds Present, Distended Extremeties Extremities Exam: Trace Edema Neurologic Neuro Exam: Alert, Awake, Oriented Psychiatric Psych Exam: Appropriate Responses Assessment/Plan Assessment Summary: GRADY/Acute Renal Failure, Hypotension, CKD Stage IV Problem List: (1) Diabetes mellitus (2) CHF (congestive heart failure) (3) Cholecystitis (4) Gallstones (5) Elevated LFTs (6) Anemia (7) Stage 4 chronic kidney disease (8) Acute kidney failure Plan Patient still has low BP. Creatinine increase to above 5. K is normal. Most likely has ATN due to hypotension causing GRADY. Continue antibiotics. Stabilize hemodynamically. If continue to get worse, may will need Dialysis. Problem Qualifiers (1) Anemia: Svitlana Cook MD Feb 07, 2017 14:35
[2017-02-07] MEDS ORDERED: SODIUM CHLOR 0.9% 1000 ML INJ 1,000 ML IV SCH (15:00)
--- NOTE | 2017-02-07 16:45 | RADRPT ---
EXAM DATE/TIME: 02/07/2017 16:18 [facility] COMPARISON: CHEST SINGLE AP, February 06, 2017, 7:17. INDICATIONS : Sepsis. Congestion. MEDICAL HISTORY : None. SURGICAL HISTORY : None. ENCOUNTER: Subsequent ACUITY: 3 days PAIN SCORE: Non-responsive. LOCATION: Bilateral chest FINDINGS: A single view of the chest demonstrates minimal bibasilar densities. Diminished lung volumes. Heart a nd the upper limits of normal in size. Osseous structures are intact. CONCLUSION: Diminished lung volumes and probable bibasilar atelectasis. Maikel Peña MD on February 07, 2017 at 16:43 Board Certified Radiologist. This report was verified electronically.
--- NOTE | 2017-02-07 16:56 | RADRPT ---
EXAM DATE/TIME: 02/07/2017 16:22 [facility] COMPARISON: No previous studies available for comparison. INDICATIONS : Sepsis. Cholecystitis. MEDICAL HISTORY : None. SURGICAL HISTORY : None. ENCOUNTER: Subsequent ACUITY: 4 - 6 days PAIN SCORE: Non-responsive. LOCATION: Bilateral lower quadrant FINDINGS: Supine view of the abdomen was performed. The abdominal bowel gas pattern is normal. No abnormal ma sses, calcifications, or organomegaly is seen. The osseous structures are unremarkable. Cholecystost megan tube. Presumed phleboliths in pelvis. CONCLUSION: 1. No acute abnormalities. 2. Cholecystostomy tube. Maikel Peña MD on February 07, 2017 at 16:54 Board Certified Radiologist. This report was verified electronically.
[2017-02-07 17:16] LABS: BLOOD GAS BASE EXCESS -7.5 mmol/L (-2-2); BLOOD GAS CARBOXYHEMOGLOBIN 1.2 % (0-4); BLOOD GAS HCO3 18 mmol/L (22-26); BLOOD GAS METHEMOGLOBIN 0.9 % (0-2); BLOOD GAS O2 HGB SATURATION 92 % (90-100); BLOOD GAS OXYGEN CONTENT 12.4 Vol % (12.0-20.0); BLOOD GAS PCO2 41 mmHg (38-42); BLOOD GAS PO2 73 mmHg (61-120); BLOOD GAS TOTAL HGB 9.5 G/DL (12.0-16.0); CRITICAL VALUE YES; DRAW SITE LT RADIAL; LITER FLOW 2 L/M; OXYGEN DEVICE NASAL CANNULA; TEMP CORR TO 98.6
[2017-02-07 17:17] LABS: NUMBER OF ARTERIAL PUNCTURES 1; STAT NO; ULNAR PULSE PRESENT
--- NOTE | 2017-02-07 17:38 | HHI.PR ---
Subjective Subjective Notes Painful last night; less so today Objective Vitals/I&O Vital Signs Date Time Temp Pulse Resp B/P Pulse Ox O2 Delivery O2 Flow Rate FiO2 02/07/17 16:00 96.2 100 15 99/56 96 02/07/17 08:54 Nasal Cannula 1.00 Labs Laboratory Tests Test 02/07/17 02/07/17 11:26 17:05 Sodium Level 141 Potassium Level 5.2 Chloride Level 107 Carbon Dioxide Level 18.0 Anion Gap 16 Blood Urea Nitrogen 60 Creatinine 5.37 Estimat Glomerular Filtration 10 Rate Random Glucose 188 Calcium Level 8.6 Blood Gas Puncture Site LT RADIAL Blood Gas Patient Temperature 98.6 Blood Gas HCO3 18 Blood Gas Base Excess -7.5 Blood Gas Oxygen Saturation 92 Arterial Blood pH 7.27 Arterial Blood Partial 41 Pressure CO2 Arterial Blood Partial 73 Pressure O2 Arterial Blood Oxygen Content 12.4 Arterial Blood 1.2 Carboxyhemoglobin Arterial Blood Methemoglobin 0.9 Blood Gas Hemoglobin 9.5 Oxygen Delivery Device NASAL CANNULA Blood Gas Liter Flow 2 Date/Time Procedure Status Source Growth 02/06/17 15:14 Gram Stain - Final Resulted Fluid Bile Fluid 02/06/17 15:14 Body Fluid Culture - Preliminary Resulted Fluid Bile Fluid NO GROWTH IN 24 HOURS. Narrative Exam Abdomen moderately distended and still somewhat tender RUQ Dang tube draining serosanguinous material A/P Assessment and Plan Post cholecystostomy tube placement day #1 Slowly improving from pain standpoint Renal function getting worse Quite painful due to narcotic tolerance from use for chronic back pain Kevin Barrett MD Feb 07, 2017 17:38
[2017-02-07 18:31] LABS: BLOOD, URINE TRACE (NEG); COMMENT (UR) CULT NOT INDICATED; CULTURE IF INDICATED CULT NOT INDICATED; GLUCOSE,URINE TRACE mg/dL (NEG); KETONE, URINE NEG (NEG); NITRITE,URINE NEG (NEG); PH, URINE 5.5 (5.0-8.5); SQUAMOUS EPITHELIAL CELL URINE 1 /hpf (0-5); URINE COLOR YELLOW (YELLW/STRAW)
[2017-02-07 19:09] LABS: APTT (PATIENT) 29.2 SEC (24.3-30.1); INTERNATIONAL NORMALIZED RATIO 1.3 RATIO; PROTHROMBIN TIME - PATIENT 14.8 SEC (9.8-11.6)
[2017-02-07 19:14] LABS: BASOPHIL % 0.1 % (0.0-2.0); EOSINOPHIL % 0.3 % (0.0-4.0); HEMATOCRIT 27.8 % (35.0-46.0); HEMO FLAGS DIFF FINAL; LYMPH % 7.6 % (9.0-44.0); LYMPHOCYTE # 1.3 TH/MM3 (1.0-4.8); MEAN CELL VOLUME 67.1 FL (80.0-100.0); MEAN CORPUSCULAR HEMOGLOBIN 20.9 PG (27.0-34.0); MEAN CORPUSCULAR HGB CONC 31.1 % (32.0-36.0); MONO % 6.9 % (0.0-8.0); NEUT % 85.1 % (16.0-70.0); PLATELET COUNT 179 TH/MM3 (150-450); RED BLOOD COUNT 4.14 MIL/MM3 (4.00-5.30); RED CELL DISTRIBUTION WIDTH 16.7 % (11.6-17.2); WHITE BLOOD COUNT 16.5 TH/MM3 (4.0-11.0)
[2017-02-07 19:35] LABS: BICARBONATE 20.2 MEQ/L (21.0-32.0); INDIRECT BILIRUBIN 0.3 MG/DL (0.0-0.8); POTASSIUM 5.2 MEQ/L (3.5-5.1); TOTAL BILIRUBIN ADULT 1.2 MG/DL (0.2-1.0)
--- NOTE | 2017-02-07 19:41 | PD.CONS ---
[facility] Service Critical Care Medicine Consult Requested By Primary Care Physician Luz Lopez MD History of Present Illness 66-year-old female with a past medical history of hypertension, congestive heart failure with a last Echo 12/17/16 w/ EF 30-35%), chronic kidney disease stage IV, Chronic Anemia and Thalassemia who presented to the ER w/ complaints of abdominal pain, nausea and vomiting since the night prior to admission. Denies fever, chills or diarrhea. On arrival, BP 150/72, HR 97, O2 sat 99% on RA, Temp 99.0. CBC at baseline. Creatinine 2.75, previously 3.04 on 12/29/16. LFTs mildly elevated comparison to previous. UA negative. CT Abd/Pelvis w/ abnormal gallbladder, markedly distended gallbladder with wall thickening and mild induration of pericholecystic fat concerning for cholecystitis, so she underwent cholecystostomy tube placement 02/06/2017. She was admitted postprocedure to medical surgical floor. Today she was found to be slightly hypotensive and hypothermic with a temperature 96.2. Critical-care medicine was consulted for sepsis. Review of Systems Constitutional: COMPLAINS OF: Fatigue, Dizziness, DENIES: Diaphoretic episodes , Fever, Weight gain, Weight loss, Chills, Change in appetite, Night Sweats Endocrine: DENIES: Abnorml menstrual pattern, Heat/cold intolerance, Polydipsia , Polyuria, Polyphagia Eyes: DENIES: Blurred vision, Diplopia, Eye inflammation, Eye pain, Vision loss , Photosensitivity, Double Vision Ears, nose, mouth, throat: DENIES: Tinnitus, Hearing loss, Vertigo, Nasal discharge, Oral lesions, Throat pain, Hoarseness, Ear Pain, Running Nose, Epistaxis, Sinus Pain, Toothache, Odynophagia Respiratory: DENIES: Apneas, Cough, Snoring, Wheezing, Hemoptysis, Sputum production, Shortness of breath Cardiovascular: DENIES: Chest pain, Palpitations, Syncope, Dyspnea on Exertion , PND, Lower Extremity Edema, Orthopnea, Claudication Gastrointestinal: COMPLAINS OF: Abdominal pain, Anorexia, DENIES: Black stools , Bloody stools, Constipation, Diarrhea, Nausea, Vomiting, Difficulty Swallowing Genitourinary: DENIES: Abnormal vaginal bleeding, Dysmenorrhea, Dyspareunia, Sexual dysfunction, Urinary frequency, Urinary incontinence, Urgency, Hematuria , Dysuria, Nocturia, Vaginal discharge Musculoskeletal: DENIES: Joint pain, Muscle aches, Stiffness, Joint Swelling, Back pain, Neck pain Integumentary: DENIES: Abnormal pigmentation, Pruritus, Rash, Nail changes, Breast masses, Breast skin changes, Nipple discharge Hematologic/lymphatic: DENIES: Bruising, Lymphadenopathy Immunologic/allergic: DENIES: Eczema, Urticaria Neurologic: DENIES: Abnormal gait, Headache, Localized weakness, Paresthesias, Seizures, Speech Problems, Tremor, Poor Balance Psychiatric: DENIES: Anxiety, Confusion, Mood changes, Depression, Hallucinations, Agitation, Suicidal Ideation, Homicidal Ideation, Delusions Past Family Social History Allergies: Coded Allergies: Lisinopril (Unverified Allergy, Intermediate, Cough, 01/19/17) Past Medical History Hypertension Congestive heart failure (Echo 12/17/16 w/ EF 30-35%) Chronic kidney disease stage IV Chronic Anemia and Thalassemia Past Surgical History Eye Surgery Reported Medications Reported Meds & Active Scripts Active Lantus Solostar Pen Inj (Insulin Glargine) 300 Unit/3 Ml Pen 20 Units SQ DAILY Blood Glucose Monitor (Blood-Glucose Meter) 1 Each Each Ea DAILY Oxycodone (Oxycodone HCl) 5 Mg Tab 5 Mg PO Q6H PRN Senna Plus 8.6-50 mg (Sennosides-Docusate Sodium) 1 Tab Tab 1 Tab PO BID Tessalon Perles (Benzonatate) 100 Mg Cap 100 Mg PO TID Ferosul (Ferrous Sulfate) 325 Mg Tablet 325 Mg PO BID Coreg (Carvedilol) 3.125 Mg Tab 3.125 Mg PO Q12HR Reported [iron infusion] Unknown Dose IV [id number] Procrit Inj (Epoetin Moreno) 10,000 Unit/Ml Inj Unknown Dose SQ 3XWEEK Tizanidine (Tizanidine HCl) 4 Mg Cap 4 Mg PO TID Baby Ddrops (Cholecalciferol) 400 Unit/0.03 Ml Liq 400 Units PO DAILY D 400 (Cholecalciferol) 400 Unit Chew Atropine 0.01%-Ns Eye Drops (Atropine Sulfate in 0.9% NaCl) 10 Ml Drops 0.01 Drop LEFT EYE BID D3 (Cholecalciferol) 1,000 Unit Cap Amlodipine (Amlodipine Besylate) 10 Mg Tab 10 Mg PO DAILY Glipizide 10 Mg Tab 10 Mg PO BIDAC Take 30 minutes before a meal Active Ordered Medications Current Medications Medications (Trade) Dose Ordered Sig/Lo Route PRN Reason Start Time Stop Time Status Last Admin Dose Admin Dextrose (D50w (Vial) Inj) 50 ml UNSCH PRN IV HYPOGLYCEMIA-SEE COMMENTS 02/05/17 19:30 Glucagon 1 mg 1 mg UNSCH PRN OTHER HYPOGLYCEMIA-SEE COMMENTS 02/05/17 19:30 Piperacillin Sod/ Tazobactam Sod 50 ml @ 100 mls/hr Q6H IV 02/06/17 00:00 02/07/17 23:49 Sodium Chloride (NS 1000 ml Inj) 1,000 ml @ 50 mls/hr Q20H IV 02/05/17 19:16 Hold 02/06/17 04:19 Sodium Chloride (NS Flush) 2 ml UNSCH PRN IV FLUSH FLUSH AFTER USING IV ACCESS 02/05/17 19:30 Sodium Chloride (NS Flush) 2 ml BID IV FLUSH 02/05/17 21:00 02/07/17 20:10 Ondansetron HCl (Zofran Inj) 4 mg Q6H PRN IVP NAUSEA OR VOMITING 02/05/17 19:30 02/06/17 17:46 Acetaminophen (Tylenol) 650 mg Q6H PRN PO FEVER 02/05/17 19:30 Oxycodone HCl (Roxicodone) 5 mg Q4H PRN PO PAIN SCALE 3 TO 5 02/05/17 19:30 02/07/17 10:56 Senna/Docusate Sodium (Terese-Colace) 1 tab BID PO 02/05/17 21:00 02/07/17 20:11 Magnesium Hydroxide (Milk Of Magnesia Liq) 30 ml Q12H PRN PO MILD - MODERATE CONSTIPATION 02/05/17 19:30 02/06/17 07:59 Sennosides (Senokot) 17.2 mg Q12H PRN PO MODERATE - SEVERE CONSTIPATION 02/05/17 19:30 Bisacodyl (Dulcolax Supp) 10 mg DAILY PRN RECTAL SEVERE CONSTIPATION 02/05/17 19:30 Lactulose (Lactulose Liq) 30 ml DAILY PRN PO SEVERE CONSITIPATION 02/05/17 19:30 02/06/17 17:46 Amlodipine Besylate (Norvasc) 10 mg DAILY PO 02/06/17 09:00 Hold 02/06/17 07:57 Carvedilol (Coreg) 3.125 mg Q12HR PO 02/05/17 21:00 02/07/17 20:11 Tizanidine HCl (Zanaflex) 4 mg TID PO 02/06/17 09:00 02/07/17 13:30 Insulin Detemir (Levemir Inj) 10 units DAILY SQ 02/06/17 09:00 02/07/17 08:38 Morphine Sulfate 1 mg 1 mg Q4HR PRN IV Pain 6-10 02/06/17 12:00 02/06/17 17:47 Sodium Bicarbonate/ Dextrose (Sodium Bicarbonate 8.4% Inj/D5W 1000 ml Inj) 1,150 ml @ 75 mls/hr [id number] IV 02/07/17 19:45 02/07/17 20:10 Family History No family history of premature coronary artery disease or cancer Social History No history of alcohol tobacco or illicit drug abuse Physical Exam Vital Signs Vital Signs Date Time Temp Pulse Resp B/P Pulse Ox O2 Delivery O2 Flow Rate FiO2 02/07/17 18:07 96 Nasal Cannula 2.00 02/07/17 17:30 100 02/07/17 16:00 96.2 100 15 99/56 96 02/07/17 12:02 18 02/07/17 12:00 96.2 88 17 92/52 99 02/07/17 08:54 95 Nasal Cannula 1.00 02/07/17 08:00 96.1 99 16 80/49 99 02/07/17 04:21 96 Nasal Cannula 2.00 02/07/17 04:20 104 20 92/54 96 02/07/17 04:00 97.2 104 19 97/56 97 02/07/17 02:36 89 02/07/17 00:30 98 Nasal Cannula 4.00 02/07/17 00:00 99.7 84 18 94/56 100 02/06/17 23:27 100 Simple Mask 7.00 02/06/17 20:00 97.9 83 18 118/55 98 Physical Exam GENERAL: Well-nourished, well-developed patient. SKIN: Warm and dry. HEAD: Normocephalic. EYES: No scleral icterus. No injection or drainage. NECK: Supple, trachea midline. No JVD or lymphadenopathy. CARDIOVASCULAR: Regular rate and rhythm without murmurs, gallops, or rubs. RESPIRATORY: Breath sounds equal bilaterally. No accessory muscle use. GASTROINTESTINAL: Abdomen soft, non-tender, nondistended. MUSCULOSKELETAL: No cyanosis, or edema. BACK: Nontender without obvious deformity. No CVA tenderness. EXTREMITIES: No clubbing cyanosis or edema Laboratory Laboratory Tests Test 02/07/17 02/07/17 02/07/17 02/07/17 11:26 17:05 17:30 18:37 Sodium Level 141 138 Potassium Level 5.2 5.2 Chloride Level 107 106 Carbon Dioxide Level 18.0 20.2 Anion Gap 16 12 Blood Urea Nitrogen 60 70 Creatinine 5.37 5.86 Estimat Glomerular Filtration 10 9 Rate Random Glucose 188 172 Calcium Level 8.6 8.0 Blood Gas Puncture Site LT RADIAL Blood Gas Patient Temperature 98.6 Blood Gas HCO3 18 Blood Gas Base Excess -7.5 Blood Gas Oxygen Saturation 92 Arterial Blood pH 7.27 Arterial Blood Partial 41 Pressure CO2 Arterial Blood Partial 73 Pressure O2 Arterial Blood Oxygen Content 12.4 Arterial Blood 1.2 Carboxyhemoglobin Arterial Blood Methemoglobin 0.9 Blood Gas Hemoglobin 9.5 Oxygen Delivery Device NASAL CANNULA Blood Gas Liter Flow 2 Urine Color YELLOW Urine Turbidity HAZY Urine pH 5.5 Urine Specific [place] 1.014 Urine Protein 30 Urine Glucose (UA) TRACE Urine Ketones NEG Urine Occult Blood TRACE Urine Nitrite NEG Urine Bilirubin NEG Urine Urobilinogen LESS THAN 2.0 Urine Leukocyte Esterase NEG Urine RBC 10 Urine WBC 3 Urine Squamous Epithelial 1 Cells Urine Amorphous Sediment RARE Microscopic Urinalysis Comment CULT NOT INDICATED White Blood Count 16.5 Red Blood Count 4.14 Hemoglobin 8.7 Hematocrit 27.8 Mean Corpuscular Volume 67.1 Mean Corpuscular Hemoglobin 20.9 Mean Corpuscular Hemoglobin 31.1 Concent Red Cell Distribution Width 16.7 Platelet Count 179 Mean Platelet Volume 9.5 Neutrophils (%) (Auto) 85.1 Lymphocytes (%) (Auto) 7.6 Monocytes (%) (Auto) 6.9 Eosinophils (%) (Auto) 0.3 Basophils (%) (Auto) 0.1 Neutrophils # (Auto) 14.0 Lymphocytes # (Auto) 1.3 Monocytes # (Auto) 1.1 Eosinophils # (Auto) 0.0 Basophils # (Auto) 0.0 CBC Comment DIFF FINAL Differential Comment Prothrombin Time 14.8 Prothromb Time International 1.3 Ratio Activated Partial 29.2 Thromboplast Time Lactic Acid Level 1.4 Total Bilirubin 1.2 Direct Bilirubin 0.9 Indirect Bilirubin 0.3 Aspartate Amino Transf 377 (AST/SGOT) Alanine Aminotransferase 324 (ALT/SGPT) Alkaline Phosphatase 144 Total Protein 7.0 Albumin 2.2 Date/Time Procedure Status Source Growth 02/07/17 18:45 Aerobic Blood Culture Received Blood Other Pending 02/07/17 18:45 Anaerobic Blood Culture Received Blood Other Pending 02/06/17 15:14 Gram Stain - Final Resulted Fluid Bile Fluid 02/06/17 15:14 Body Fluid Culture - Preliminary Resulted Fluid Bile Fluid NO GROWTH IN 24 HOURS. Result Diagram: 02/07/17183602/07/171836 Assessment and Plan Assessment and Plan Acute cholecystitis - Status post cholecystostomy tube placement - Zosyn - IV fluid hydration - Lactic acid normal, WBC improving, normotensive - Further per GI and general surgery Acute on chronic kidney injury - Worsening creatinine - Management per nephrology Metabolic acidosis - Due to kidney injury - Sodium bicarbonate drip - Treated underlying condition Diabetes mellitus - Levemir and insulin sliding scale Hypertension - Coreg DVT GI prophylaxis - Teds SCDs - 1800 ADA Critical Care: The total critical care time was 35 minutes. Time to perform other separately billable procedures was not included in the critical care time. Man Rhodes MD Feb 07, 2017 19:41
[2017-02-07] MEDS: SODIUM BICARBONATE 8.4% INJ 150 MEQ in DEXTROSE 5% IN WATE 1000ML INJ 1,000 ML IV SCH ×2 (20:10)
[2017-02-08] VITALS (8 sets, daily range): BP systolic 90–115; BP diastolic 46–60; PULSE 93–108; RESP 16–20; TEMP 98.5–99.5; O2SAT 95–99
[2017-02-08 04:45] LABS: BASOPHIL % 0.1 % (0.0-2.0); EOSINOPHIL # 0.1 TH/MM3 (0-0.4); EOSINOPHIL % 0.6 % (0.0-4.0); HEMATOCRIT 28.3 % (35.0-46.0); HEMO FLAGS DIFF FINAL; MEAN CELL VOLUME 66.9 FL (80.0-100.0); MEAN CORPUSCULAR HEMOGLOBIN 20.6 PG (27.0-34.0); MEAN CORPUSCULAR HGB CONC 30.9 % (32.0-36.0); MONO % 6.9 % (0.0-8.0); NEUT % 84.4 % (16.0-70.0); PLATELET COUNT 178 TH/MM3 (150-450); RED BLOOD COUNT 4.23 MIL/MM3 (4.00-5.30); RED CELL DISTRIBUTION WIDTH 16.7 % (11.6-17.2); WHITE BLOOD COUNT 13.1 TH/MM3 (4.0-11.0)
[2017-02-08 05:10] LABS: ALT (GPT) 335 U/L (10-53); ANION GAP 14 MEQ/L (5-15); AST (GOT) 334 U/L (15-37); BICARBONATE 19.9 MEQ/L (21.0-32.0); BLOOD UREA NITROGEN 75 MG/DL (7-18); CHLORIDE 103 MEQ/L (98-107); GLOMERULAR FILTRATION RATE 7 ML/MIN (>89); MAGNESIUM 2.6 MG/DL (1.5-2.5); POTASSIUM 5.2 MEQ/L (3.5-5.1); SODIUM (NA) 137 MEQ/L (136-145)
[2017-02-08 05:13] LABS: ALKALINE PHOSPHATASE 146 U/L (45-117); TOTAL BILIRUBIN ADULT 1.3 MG/DL (0.2-1.0)
[2017-02-08] MEDS: PIPERACIL-TAZO 2.25 GM PREMIX 50 ML IV SCH ×3 (05:26→17:41)
[2017-02-08 06:14] LABS: BLOOD GAS BASE EXCESS -4.5 mmol/L (-2-2); BLOOD GAS CARBOXYHEMOGLOBIN 1.6 % (0-4); BLOOD GAS HCO3 21 mmol/L (22-26); BLOOD GAS METHEMOGLOBIN 1.1 % (0-2); BLOOD GAS O2 HGB SATURATION 95 % (90-100); BLOOD GAS OXYGEN CONTENT 11.3 Vol % (12.0-20.0); BLOOD GAS PCO2 42 mmHg (38-42); BLOOD GAS PO2 95 mmHg (61-120); BLOOD GAS TOTAL HGB 8.3 G/DL (12.0-16.0); CRITICAL VALUE NO; LITER FLOW 2 L/M; OXYGEN DEVICE NASAL CANNULA; TEMP CORR TO 98.6
[2017-02-08 06:16] LABS: DRAW SITE RT RADIAL; NUMBER OF ARTERIAL PUNCTURES 1; STAT NO; ULNAR PULSE PRESENT
[2017-02-08] MEDS: INSULIN ASPART SUPPLEMENTAL SCALE SQ SCH ×4 (07:00→21:49)
[2017-02-08] MEDS: DOCUSATE SODIUM 50 MG/SENNA 8.6 MG TAB PO SCH ×2 (08:59→20:30)
[2017-02-08] MEDS: CARVEDILOL 3.125 MG TAB PO SCH ×3 (08:59→20:30)
[2017-02-08] MEDS: SODIUM CHLORIDE 0.9% FLUSH 10 ML FLUSH IV FLUSH SCH ×2 (08:59→20:30)
[2017-02-08] MEDS: INSULIN DETEMIR 100 UNITS/ML VIAL SQ SCH (09:07)
[2017-02-08] MEDS: SODIUM BICARBONATE 8.4% INJ 150 MEQ in DEXTROSE 5% IN WATE 1000ML INJ 1,000 ML IV SCH ×4 (11:05→20:29)
--- NOTE | 2017-02-08 12:17 | HHI.NPPN ---
Subjective History of Present Illness 66-year-old female with a past medical history of hypertension, diabetes mellitus, chronic kidney disease, anemia and chronic back pain, who was admitted because of abdominal pain, nausea and vomiting. I was called to see the patient because of elevated BUN and creatinine. The patient has known history of chronic kidney disease and she had acute kidney injury. Additional Remarks Patient is sitting on chair, with nasal cannula, no SOB, no abd. pain. Objective Data Data 02/07/17 02/08/17 19:00 07:00 Intake Total 60 ml 1069 ml Output Total 400 ml Balance 60 ml 669 ml Intake Oral 60 ml 150 ml IV Total 919 ml Output Urine Total 350 ml Drainage Total 50 ml # Voids 0 # Bowel Movements 1 0 Vital Signs Date Time Temp Pulse Resp B/P Pulse Ox O2 Delivery O2 Flow Rate FiO2 02/08/17 11:43 96 Nasal Cannula 2.00 02/08/17 11:00 98.8 93 18 94/48 99 02/08/17 11:00 99 Nasal Cannula 2.00 02/08/17 11:00 93 02/08/17 07:00 108 02/08/17 07:00 97 Nasal Cannula 2.00 02/08/17 07:00 99.5 108 16 115/60 97 02/08/17 03:00 98.5 108 18 105/54 95 02/08/17 03:00 96 Nasal Cannula 2.00 02/08/17 03:00 108 02/07/17 23:00 97 Nasal Cannula 2.00 02/07/17 23:00 107 02/07/17 23:00 97.8 107 18 99/53 97 02/07/17 21:55 95 Nasal Cannula 2.00 02/07/17 19:00 100 02/07/17 19:00 95 Nasal Cannula 2.00 02/07/17 19:00 98.4 100 18 95/54 95 02/07/17 18:07 96 Nasal Cannula 2.00 02/07/17 17:30 100 02/07/17 16:00 96.2 100 15 99/56 96 -: 02/08/17 0433 02/08/17 0433 Microbiology 02/07/17 Aerobic Blood Culture - Preliminary, Resulted NO GROWTH IN 1 DAY 02/07/17 Anaerobic Blood Culture - Preliminary, Resulted NO GROWTH IN 1 DAY 02/07/17 Aerobic Blood Culture - Preliminary, Resulted NO GROWTH IN 1 DAY 02/07/17 Anaerobic Blood Culture - Preliminary, Resulted NO GROWTH IN 1 DAY Physical Exam General Appearance: Anxious Eyes Eye Exam: Pupils Equal Throat Throat Exam: Oral Mucosa [place] & Moist Neck Neck Exam: Neck Supple Pulmonary Resp Exam: Breath Sounds Equal, No Distress, Rhonchi, Decreased Bases Cardiology CV Exam: Regular, Normal Sinus Rhythm Gastrointestinal/Abdomen GI Exam: Soft, Bowel Sounds Present, Distended Extremeties Extremities Exam: Trace Edema Neurologic Neuro Exam: Alert, Awake, Oriented Psychiatric Psych Exam: Appropriate Responses Assessment/Plan Assessment Summary: GRADY/Acute Renal Failure, Hypotension, CKD Stage IV Problem List: (1) Diabetes mellitus (2) CHF (congestive heart failure) (3) Cholecystitis (4) Gallstones (5) Elevated LFTs (6) Anemia (7) Stage 4 chronic kidney disease (8) Acute kidney failure Plan Patient still has low BP. Creatinine continue to increase K is now 5.2, Hco3 dropped, Most likely has ATN due to hypotension causing GRADY. Continue antibiotics. Continue IVF with NaHco3. Urine out put is low, add Bumex infusion. Most likely will need Dialysis, possibly tomorrow. Problem Qualifiers (1) Anemia: Svitlana Cook MD Feb 08, 2017 12:17
[2017-02-08] MEDS ORDERED: BUMETANIDE INJ 100 ML IV SCH (13:00)
--- NOTE | 2017-02-08 15:56 | HHI.PR ---
Subjective Subjective Notes DAILY PROGRESS NOTE FOR SURGICAL ATTENDING, DR. DMITRIY OLIVAS Family at bedside Patient up in chair About 30 cc cholecystotomy tube Objective Vitals/I&O Vital Signs Date Time Temp Pulse Resp B/P Pulse Ox O2 Delivery O2 Flow Rate FiO2 02/08/17 15:00 99 Nasal Cannula 2.00 02/08/17 15:00 98.5 99 16 90/46 Labs Laboratory Tests Test 02/07/17 02/07/17 02/07/17 02/08/17 17:05 17:30 18:37 04:33 Blood Gas Puncture Site LT RADIAL Blood Gas Patient Temperature 98.6 Blood Gas HCO3 18 Blood Gas Base Excess -7.5 Blood Gas Oxygen Saturation 92 Arterial Blood pH 7.27 Arterial Blood Partial 41 Pressure CO2 Arterial Blood Partial 73 Pressure O2 Arterial Blood Oxygen Content 12.4 Arterial Blood 1.2 Carboxyhemoglobin Arterial Blood Methemoglobin 0.9 Blood Gas Hemoglobin 9.5 Oxygen Delivery Device NASAL CANNULA Blood Gas Liter Flow 2 Urine Color YELLOW Urine Turbidity HAZY Urine pH 5.5 Urine Specific [place] 1.014 Urine Protein 30 Urine Glucose (UA) TRACE Urine Ketones NEG Urine Occult Blood TRACE Urine Nitrite NEG Urine Bilirubin NEG Urine Urobilinogen LESS THAN 2.0 Urine Leukocyte Esterase NEG Urine RBC 10 Urine WBC 3 Urine Squamous Epithelial 1 Cells Urine Amorphous Sediment RARE Microscopic Urinalysis Comment CULT NOT INDICATED Nasal Screen MRSA (PCR) MRSA NOT DETECTED White Blood Count 16.5 13.1 Red Blood Count 4.14 4.23 Hemoglobin 8.7 8.7 Hematocrit 27.8 28.3 Mean Corpuscular Volume 67.1 66.9 Mean Corpuscular Hemoglobin 20.9 20.6 Mean Corpuscular Hemoglobin 31.1 30.9 Concent Red Cell Distribution Width 16.7 16.7 Platelet Count 179 178 Mean Platelet Volume 9.5 9.4 Neutrophils (%) (Auto) 85.1 84.4 Lymphocytes (%) (Auto) 7.6 8.0 Monocytes (%) (Auto) 6.9 6.9 Eosinophils (%) (Auto) 0.3 0.6 Basophils (%) (Auto) 0.1 0.1 Neutrophils # (Auto) 14.0 11.0 Lymphocytes # (Auto) 1.3 1.0 Monocytes # (Auto) 1.1 0.9 Eosinophils # (Auto) 0.0 0.1 Basophils # (Auto) 0.0 0.0 CBC Comment DIFF FINAL DIFF FINAL Differential Comment Prothrombin Time 14.8 Prothromb Time International 1.3 Ratio Activated Partial 29.2 Thromboplast Time Sodium Level 138 137 Potassium Level 5.2 5.2 Chloride Level 106 103 Carbon Dioxide Level 20.2 19.9 Anion Gap 12 14 Blood Urea Nitrogen 70 75 Creatinine 5.86 6.77 Estimat Glomerular Filtration 9 7 Rate Random Glucose 172 186 Lactic Acid Level 1.4 Calcium Level 8.0 7.9 Total Bilirubin 1.2 1.3 Direct Bilirubin 0.9 Indirect Bilirubin 0.3 Aspartate Amino Transf 377 334 (AST/SGOT) Alanine Aminotransferase 324 335 (ALT/SGPT) Alkaline Phosphatase 144 146 Total Protein 7.0 7.3 Albumin 2.2 2.0 Phosphorus Level 5.0 Magnesium Level 2.6 Test 02/08/17 05:57 Blood Gas Puncture Site RT RADIAL Blood Gas Patient Temperature 98.6 Blood Gas HCO3 21 Blood Gas Base Excess -4.5 Blood Gas Oxygen Saturation 95 Arterial Blood pH 7.32 Arterial Blood Partial 42 Pressure CO2 Arterial Blood Partial 95 Pressure O2 Arterial Blood Oxygen Content 11.3 Arterial Blood 1.6 Carboxyhemoglobin Arterial Blood Methemoglobin 1.1 Blood Gas Hemoglobin 8.3 Oxygen Delivery Device NASAL CANNULA Blood Gas Liter Flow 2 Date/Time Procedure Status Source Growth 02/07/17 18:45 Aerobic Blood Culture - Preliminary Resulted Blood Other NO GROWTH IN 1 DAY 02/07/17 18:45 Anaerobic Blood Culture - Preliminary Resulted Blood Other NO GROWTH IN 1 DAY 02/06/17 15:14 Gram Stain - Final Resulted Fluid Bile Fluid 02/06/17 15:14 Body Fluid Culture - Preliminary Resulted Fluid Bile Fluid NO GROWTH IN 48 HOURS. Radiology Last Impressions Chest X-Ray 02/07/17 0000 Signed Impressions: Service Date/Time: Tuesday, February 07, 2017 16:18 - CONCLUSION: Diminished lung volumes and probable bibasilar atelectasis. Maikel Peña MD Abdomen X-Ray 02/07/17 0000 Signed Impressions: Service Date/Time: Tuesday, February 07, 2017 16:22 - CONCLUSION: 1. No acute abnormalities. 2. Cholecystostomy tube. Maikel Peña MD Abdomen CT 02/06/17 0000 Signed Impressions: Service Date/Time: Monday, February 06, 2017 16:21 - CONCLUSION: Interval cholecystostomy tube placement. Worsening parenchymal disease in the lung bases. Ney Lutz MD Abdomen/Pelvis CT 02/05/17 1656 Signed Impressions: Service Date/Time: January 18:15 - CONCLUSION: 1. Gallbladder is abnormal. It is markedly distended with gallbladder wall thickening and mild induration of the pericholecystic fat concerning for cholecystitis. High attenuation within the gallbladder lumen may be related to sludge or clot. 2. Left basilar atelectasis and tiny left effusion. Juan De Souza MD Gall Bladder Ultrasound 02/05/17 0000 Signed Impressions: Service Date/Time: January 20:39 - CONCLUSION: 1. The gallbladder is abnormal with findings corresponding to the findings on the CT exam. There is wall thickening, marked distention and the lumen is occupied by echogenic shadowing material which may reflect sludge or hemorrhage. A few stones are suspected. Juan De Souza MD Cardiovascular: Regular Abdomen: Other (cholecystotomy tube in place) Extremities: SCD's on A/P Problem List: (1) Cholecystostomy care (2) Gallstones (3) Cholecystitis (4) Anemia (5) Acute kidney failure (6) Stage 4 chronic kidney disease (7) Diabetes mellitus Assessment and Plan 66 year old female with multiple comorbidities; acute cholecystitis iR placement of a cholecystostomy tube -Continue Zosyn -Patient remains a poor surgical candidate - Reviewed plan with family at bedside Patient tolerating liquids Continued drainage with cholecystotomy tube Consider cholangiogram through cholecystotomy tube when clinically indicated Attending Statement NOTE FOR SURGICAL ATTENDING, DR. DMITRIY OLIVSA I attest that I had a [id number] encounter with the patient on the same day, and personally performed and documented my assessment and findings in the medical record. The following services were provided during this hospital visit: Chart data review, vital sign assessments/reviewing monitor data Review of consultations notes if present. Medication orders/review and/or management Ordering and/or reviewing lab tests Ordering and/or interpreting/reviewing x-rays and/or diagnostic studies Care of the patient and discussion of the patient with the care team Documentation time To help prompt me to consider important information that might be impacting today's encounter and assessment, information from prior notes written by myself or my colleagues may have been "brought forward/copy and pasted" into today's note. Problem Qualifiers (1) Anemia: Dmitriy Olivas MD Feb 08, 2017 15:56
--- NOTE | 2017-02-08 16:01 | HHI.CCPN ---
Subjective Remarks/Hospital Course Hospital Course: 66-year-old female with a past medical history of hypertension, congestive heart failure with a last Echo 12/17/16 w/ EF 30-35%), chronic kidney disease stage IV, Chronic Anemia and Thalassemia who presented to the ER w/ complaints of abdominal pain, nausea and vomiting since the night prior to admission. Denies fever, chills or diarrhea. On arrival, BP 150/72, HR 97, O2 sat 99% on RA, Temp 99.0. CBC at baseline. Creatinine 2.75, previously 3.04 on 12/29/16. LFTs mildly elevated comparison to previous. UA negative. CT Abd/Pelvis w/ abnormal gallbladder, markedly distended gallbladder with wall thickening and mild induration of pericholecystic fat concerning for cholecystitis, so she underwent cholecystostomy tube placement 02/06/2017. She was admitted postprocedure to medical surgical floor. Today she was found to be slightly hypotensive and hypothermic with a temperature 96.2. Critical-care medicine was consulted for sepsis. Subjective: 02/08: Cr continues to rise. continues to be hypotensive as well. remains on 2L o2 by OR. nephrology started bumex infusion. Objective Vital Signs Date Time Temp Pulse Resp B/P Pulse Ox O2 Delivery O2 Flow Rate FiO2 02/08/17 15:00 99 Nasal Cannula 2.00 02/08/17 15:00 98.5 99 16 90/46 Intake and Output 02/07/17 02/07/17 02/07/17 07:59 15:59 23:59 Intake Total 50 ml 60 ml Balance 50 ml 60 ml Result Diagram: 02/08/17 0433 02/08/17 0433 Other Results Laboratory Tests Test 02/07/17 02/08/17 17:05 05:57 Blood Gas Puncture Site LT RADIAL RT RADIAL Blood Gas Patient Temperature 98.6 98.6 Blood Gas HCO3 18 mmol/L 21 mmol/L (22-26) (22-26) Blood Gas Base Excess -7.5 mmol/L -4.5 mmol/L (-2-2) (-2-2) Blood Gas Oxygen Saturation 92 % (90-100) 95 % (90-100) Arterial Blood pH 7.27 7.32 (7.380-7.420) (7.380-7.420) Arterial Blood Partial 41 mmHg (38-42) 42 mmHg (38-42) Pressure CO2 Arterial Blood Partial 73 mmHg 95 mmHg Pressure O2 (61-120) (61-120) Arterial Blood Oxygen Content 12.4 Vol % 11.3 Vol % (12.0-20.0) (12.0-20.0) Arterial Blood 1.2 % (0-4) 1.6 % (0-4) Carboxyhemoglobin Arterial Blood Methemoglobin 0.9 % (0-2) 1.1 % (0-2) Blood Gas Hemoglobin 9.5 G/DL 8.3 G/DL (12.0-16.0) (12.0-16.0) Oxygen Delivery Device NASAL CANNULA NASAL CANNULA Blood Gas Liter Flow 2 L/M 2 L/M Objective Remarks GENERAL: middle-aged female, sitting in chair. SKIN: Warm and dry. HEAD: Normocephalic. EYES: No scleral icterus. No injection or drainage. NECK: trachea midline. No JVD CARDIOVASCULAR: Regular rate and rhythm RESPIRATORY: Breath sounds equal bilaterally. No accessory muscle use. GASTROINTESTINAL: Abdomen soft, non-tender, nondistended. MUSCULOSKELETAL: No cyanosis, or edema. EXTREMITIES: No clubbing cyanosis or edema neuro: awake, alert, oriented. fc x 4. A/P Assessment and Plan Assessment: 66yF with septic shock secondary to acute cholecystitis now with acute on chronic kidney injury which may require renal replacement therapy. vascular access very poor and need to save central access for possible impending HD. will add midodrine in an attempt to perfuse end-organs. increase ivf. forced diuresis per nephrology. Acute cholecystitis - Status post cholecystostomy tube placement - Zosyn - IV fluid hydration - Lactic acid normal, WBC improving - Further per GI and general surgery Acute on chronic kidney injury - Worsening creatinine - Management per nephrology Hypotension -- likely secondary to sepsis and renal failure -- add midodrine 10mg po tid -- may be forced to add vasopressors, but very poor iv access, and will need to reserve some central access for HD Metabolic acidosis - Due to kidney injury - Sodium bicarbonate drip - Treated underlying condition Diabetes mellitus - Levemir and insulin sliding scale DVT GI prophylaxis - Teds SCDs - 1800 Kehinde Palacio MD Feb 08, 2017 16:01
[2017-02-08] MEDS: MIDODRINE 5 MG TAB PO SCH (16:45)
--- NOTE | 2017-02-08 18:29 | EKG ---
Date Performed: 02/07/2017 Time Performed: 16:52:36 PTAGE: 66 years EKG: SINUS TACHYCARDIA LEFT BUNDLE BRANCH BLOCK ABNORMAL ECG PREVIOUS TRACING : 02/05/2017 12.58 Compared to prior tracing no significant change DOCTOR: Ankit Carlson Interpretating Date/Time 02/08/2017 18:27:12
[2017-02-08] MEDS ORDERED: CHLORHEXIDINE GLUCONATE 2 % 1 PACK (2 CLOTHS)(extra cloths) TOPICAL PRN (23:00)
[2017-02-09] MEDS: PIPERACIL-TAZO 2.25 GM PREMIX 50 ML IV SCH ×4 (00:52→17:07)
[2017-02-09 03:00] VITALS: BP 104/57; PULSE 108; PULSE 115; RESP 20; TEMP 97.9; O2SAT 97; O2SAT 98
[2017-02-09] MEDS: CHLORHEXIDINE GLUCONATE 2 % 1 PACK (2 CLOTHS)(taper/protocol) TOPICAL SCH (04:00)
[2017-02-09] MEDS: SODIUM BICARBONATE 8.4% INJ 150 MEQ in DEXTROSE 5% IN WATE 1000ML INJ 1,000 ML IV SCH ×4 (04:49→13:14)
[2017-02-09] MEDS: ONDANSETRON HCL 4 MG/2 ML VIAL IVP PRN (06:37)
[2017-02-09 07:00] VITALS: BP 119/58; PULSE 104; PULSE 107; RESP 18; TEMP 99.4; O2SAT 93
[2017-02-09] MEDS: INSULIN ASPART SUPPLEMENTAL SCALE SQ SCH ×5 (07:00→21:00)
[2017-02-09] MEDS: MIDODRINE 5 MG TAB PO SCH ×3 (07:00→17:07)
[2017-02-09 07:53] LABS: HEMATOCRIT 24.4 % (35.0-46.0); MEAN CELL VOLUME 64.7 FL (80.0-100.0); MEAN CORPUSCULAR HEMOGLOBIN 21.1 PG (27.0-34.0); MEAN CORPUSCULAR HGB CONC 32.6 % (32.0-36.0); PLATELET COUNT 174 TH/MM3 (150-450); RED BLOOD COUNT 3.77 MIL/MM3 (4.00-5.30); RED CELL DISTRIBUTION WIDTH 16.3 % (11.6-17.2); REVIEW FLAG FINAL; WHITE BLOOD COUNT 10.2 TH/MM3 (4.0-11.0)
[2017-02-09 08:01] LABS: INTERNATIONAL NORMALIZED RATIO 1.1 RATIO; PROTHROMBIN TIME - PATIENT 12.2 SEC (9.8-11.6)
[2017-02-09 08:11] LABS: ANION GAP 13 MEQ/L (5-15); BICARBONATE 31.9 MEQ/L (21.0-32.0); BLOOD UREA NITROGEN 87 MG/DL (7-18); CHLORIDE 91 MEQ/L (98-107); GLOMERULAR FILTRATION RATE 6 ML/MIN (>89); MAGNESIUM 2.4 MG/DL (1.5-2.5); POTASSIUM 4.3 MEQ/L (3.5-5.1); SODIUM (NA) 136 MEQ/L (136-145)
[2017-02-09 08:26] LABS: CALCIUM-PROTEIN CORRECTED 7.5 MG/DL (8.5-10.1)
--- NOTE | 2017-02-09 08:41 | HHI.CCPN ---
Subjective Remarks/Hospital Course Hospital Course: 66-year-old female with a past medical history of hypertension, congestive heart failure with a last Echo 12/17/16 w/ EF 30-35%), chronic kidney disease stage IV, Chronic Anemia and Thalassemia who presented to the ER w/ complaints of abdominal pain, nausea and vomiting since the night prior to admission. Denies fever, chills or diarrhea. On arrival, BP 150/72, HR 97, O2 sat 99% on RA, Temp 99.0. CBC at baseline. Creatinine 2.75, previously 3.04 on 12/29/16. LFTs mildly elevated comparison to previous. UA negative. CT Abd/Pelvis w/ abnormal gallbladder, markedly distended gallbladder with wall thickening and mild induration of pericholecystic fat concerning for cholecystitis, so she underwent cholecystostomy tube placement 02/06/2017. She was admitted postprocedure to medical surgical floor. Today she was found to be slightly hypotensive and hypothermic with a temperature 96.2. Critical-care medicine was consulted for sepsis. Subjective: 02/08: Cr continues to rise. continues to be hypotensive as well. remains on 2L o2 by [place]. nephrology started bumex infusion. 02/09: Tmax 99.5. The patient continues to complain of chest pain, abdominal pain. No further episodes of nausea and vomiting. Cholecystostomy tube drained approximately 30 cc over the last 24 hours. She was noted to have no urine output over the last 18 hours, despite being on sodium bicarbonate and Bumex infusion. There is reference per nephrology of possible dialysis today. Coag studies obtained for possible IR placement of vascath today. Chemistry results pending. Objective Vital Signs Date Time Temp Pulse Resp B/P Pulse Ox O2 Delivery O2 Flow Rate FiO2 02/09/17 03:00 97 Nasal Cannula 2.00 02/09/17 03:00 97.9 108 20 104/57 Intake and Output 02/08/17 02/08/17 02/09/17 08:00 16:00 00:00 Intake Total 1069 ml 1445 ml Output Total 400 ml 40 ml Balance 669 ml 1405 ml Result Diagram: 02/09/17 0726 02/09/17 0726 Objective Remarks GENERAL: Frail ill appearing female, lying in bed writhing in pain SKIN: Warm and dry. HEAD: Normocephalic. EYES: No scleral icterus. No injection or drainage. NECK: trachea midline. No JVD CARDIOVASCULAR: Regular rate and rhythm RESPIRATORY: Breath sounds equal bilaterally. No accessory muscle use. GASTROINTESTINAL: Abdomen soft, non-tender, nondistended. Right cholecystostomy tube draining bilious secretions MUSCULOSKELETAL: No cyanosis, or edema. EXTREMITIES: No clubbing cyanosis or edema NEURO: awake, alert, oriented. Follows commands 4 extremities A/P Assessment and Plan Assessment: 66yF with septic shock secondary to acute cholecystitis now with acute on chronic kidney injury which may require renal replacement therapy. vascular access very poor and need to save central access for possible impending HD. will add midodrine in an attempt to perfuse end-organs. increase ivf. forced diuresis per nephrology. Acute cholecystitis - Status post cholecystostomy tube placement (day 3) - Zosyn - IV fluid hydration - Lactic acid normal, WBC improving - Further per GI and general surgery Acute on chronic kidney injury - Worsening creatinine - Management per nephrology-Bumex infusion, sodium bicarbonate infusion - F/U INR for possible catheter placement today Hypotension -- likely secondary to sepsis and renal failure -- midodrine 10mg po tid -- may be forced to add vasopressors, but very poor iv access, and will need to reserve some central access for HD Metabolic acidosis - Due to kidney injury - Sodium bicarbonate infusion 150 cc/hour - Treated underlying condition Diabetes mellitus - Levemir and insulin sliding scale DVT GI prophylaxis - Teds SCDs - 1800 ADA Level 3 Dispo: Contacted patient's family daughter Johanny [phone], per patient's instructions. Provided medical status update, creatinine worsening, possibility of placement of dialysis catheter. Daughter stated she was unsure if she wanted to proceed with that intervention. Will discuss with patient's and rest of family and make a determination if indeed she would want to proceed with dialysis if indicated by nephrology. All questions answered. Discussed with FACTORY MANAGER at bedside. Physician Didi Devine MD Feb 09, 2017 08:40
[2017-02-09] MEDS: SODIUM CHLORIDE 0.9% FLUSH 10 ML FLUSH IV FLUSH SCH ×2 (09:00→21:17)
[2017-02-09] MEDS: DOCUSATE SODIUM 50 MG/SENNA 8.6 MG TAB PO SCH ×2 (09:44→22:24)
[2017-02-09] MEDS: CARVEDILOL 3.125 MG TAB PO SCH ×2 (09:44→22:24)
[2017-02-09] MEDS: INSULIN DETEMIR 100 UNITS/ML VIAL SQ SCH (09:49)
--- NOTE | 2017-02-09 10:04 | HHI.NPPN ---
Subjective History of Present Illness 66-year-old female with a past medical history of hypertension, diabetes mellitus, chronic kidney disease, anemia and chronic back pain, who was admitted because of abdominal pain, nausea and vomiting. I was called to see the patient because of elevated BUN and creatinine. The patient has known history of chronic kidney disease and she had acute kidney injury. Additional Remarks Patient is alert, has mild SOB, with nasal cannula. Objective Data Data 02/08/17 02/09/17 19:00 07:00 Intake Total 1445 ml 2113 ml Output Total 40 ml 10 ml Balance 1405 ml 2103 ml Intake Oral 360 ml 330 ml IV Total 1085 ml 1783 ml Output Urine Total 20 ml 0 ml Drainage Total 20 ml 10 ml # Bowel Movements 0 0 Vital Signs Date Time Temp Pulse Resp B/P Pulse Ox O2 Delivery O2 Flow Rate FiO2 02/09/17 07:37 18 02/09/17 07:00 93 Nasal Cannula 2.00 02/09/17 07:00 99.4 104 18 119/58 93 02/09/17 07:00 107 02/09/17 03:00 97 Nasal Cannula 2.00 02/09/17 03:00 97.9 108 20 104/57 98 02/09/17 03:00 115 02/08/17 23:00 108 02/08/17 23:00 98.8 108 20 106/49 98 02/08/17 23:00 98 Nasal Cannula 2.00 02/08/17 21:15 95 Nasal Cannula 2.00 02/08/17 19:00 105 02/08/17 19:00 98 Nasal Cannula 2.00 02/08/17 19:00 98.9 105 18 101/50 98 02/08/17 15:00 99 Nasal Cannula 2.00 02/08/17 15:00 98.5 99 16 90/46 99 02/08/17 15:00 93 02/08/17 11:43 96 Nasal Cannula 2.00 02/08/17 11:00 98.8 93 18 94/48 99 02/08/17 11:00 99 Nasal Cannula 2.00 02/08/17 11:00 93 -: 02/09/17 0726 02/09/17 0726 Microbiology 02/08/17 Gram Stain, Ordered Pending 02/08/17 Sputum Culture, Ordered Pending Physical Exam General Appearance: Anxious Eyes Eye Exam: Pupils Equal Throat Throat Exam: Oral Mucosa [place] & Moist Neck Neck Exam: Neck Supple Pulmonary Resp Exam: Breath Sounds Equal, No Distress, Rhonchi, Decreased Bases Cardiology CV Exam: Regular, Normal Sinus Rhythm Gastrointestinal/Abdomen GI Exam: Soft, Bowel Sounds Present, Distended Extremeties Extremities Exam: Trace Edema Neurologic Neuro Exam: Alert, Awake, Oriented Psychiatric Psych Exam: Appropriate Responses Assessment/Plan Assessment Summary: GRADY/Acute Renal Failure, Hypotension, CKD Stage IV Problem List: (1) Diabetes mellitus (2) CHF (congestive heart failure) (3) Cholecystitis (4) Gallstones (5) Elevated LFTs (6) Anemia (7) Stage 4 chronic kidney disease (8) Acute kidney failure Plan Patient still has low urine out put. BP is stable. Creatinine continue to increase K is now better. Most likely has ATN due to hypotension causing GRADY. Continue antibiotics. Will need to start HD, D/W the daughter on the phone and patient here. Patient want to talk to daughter, she will come at 11.30 AM. Will need Vascath and HD today. Problem Qualifiers (1) Anemia: Svitlana Cook MD Feb 09, 2017 10:04
--- NOTE | 2017-02-09 10:07 | RADRPT ---
EXAM DATE/TIME: 02/06/2017 15:15 [facility] COMPARISON: CT ABDOMEN W/O CONTRAST, February 06, 2017, 16:21. INDICATIONS : Patient presents with acute cholecystitis in need of cholecystostomy tube for drainage. MEDICAL HISTORY : HTN CHF CKD Stage IV Chronic Anemia and Thalassemia Diabetes SURGICAL HISTORY : Eye surgery ENCOUNTER: Initial ACUITY: 1 day PAIN SCORE: 0/10 LOCATION: N/A FLUORO TIME: 4.3 minutes IMAGE SERIES: 2 SEDATION TIME: 30 minutes CONTRAST: 8 cc Omnipaque (iohexol) 350 MEDICATION(S): 1.) 125 mcg fentanyl (Sublimaze) IV DEVICE(S): 1.) 8 Arabic 30cm locking pigtail sidney PROCEDURE : 1. Ultrasound guided puncture of the gallbladder. 2. Percutaneous cholangiogram. 3. Percutaneous cholecystostomy tube placement. 4. Conscious sedation with continuous EKG and oximetry monitoring. The risks, benefits and alternatives to the procedure were explained and verbal and written consent w as obtained. The site was prepped in sterile fashion. Full sterile technique was used, including ca p, mask, sterile gloves and gown and a large sterile sheet. Hand hygiene and 2% chlorhexidine and/or betadine/alcohol prep was utilized per protocol for cutaneous antisepsis. The skin and subcutaneous tissues were infiltrated with local anesthetic solution.With ultrasound and fluoroscopic guidance th e gallbladder was punctured with a micropuncture set and a 0.018 wire was coiled within the lumen of the gallbladder. Attempts at passing a micropuncture set over the wire were unsuccessful. This necess itated a second access at a different angle under ultrasound guidance. An AccuStick system was utiliz ed. Injection of positive contrast demonstrates position within the gallbladder. A 0.035 guidewire w as placed within the gallbladder lumen and dilatation was performed to accept the prescribed catheter . Aspiration on the catheter yielded thick inspissated bile. Less than 20 mL of bile was able to be asp irated. This is despite repositioning the catheter. The catheter was sutured in place using silk sutu re. Conscious sedation was performed with the prescribed dosages and duration as above in the presence of an independent trained radiology nurse to assist in the monitoring of the patient. EKG and oximetry remained stable throughout the procedure. The patient tolerated the procedure well and there were n o complications. The patient was sent to post anesthesia recovery in stable condition. CONCLUSION: Uncomplicated percutaneous cholecystostomy as above. Thick inspissated bile was noted. The drainage i s fairly low given the size of the gallbladder and therefore a CT will be performed to confirm approp riate positioning of the cholecystostomy tube. Kolby Hughes Jr., MD on February 09, 2017 at 9:58 Board Certified Radiologist. This report was verified electronically.
[2017-02-09 11:00] VITALS: BP 128/65; PULSE 100; PULSE 101; RESP 16; TEMP 99.2; O2SAT 95
[2017-02-09] MEDS: MORPHINE SULFATE 4 MG/ML INJ IV PRN ×2 (12:22→22:25)
--- NOTE | 2017-02-09 15:20 | PD.RAD ---
Post Procedure Progress Note Pre Procedure Diagnosis: (1) Acute kidney failure Post Procedure Diagnosis: (1) Acute kidney failure Procedure Date: Feb 09, 2017 Supervising Radiologist: Kolby Hughes JR Proceduralist/Assist: Vicky Peter, RT(R)(CV), Sabino Zaman RT(R)() Anesthesia: Local Plan of Activity Patient to Unit: Nursing Unit Patient Condition: Good See PACS Report for procedural detail/treatment Central Venous Access Device Procedure 1 Right Internal Jugular Hemodialysis Catheter Non-Tunneled Placement dual lumen [place]: 14 Findings: Patient's daughter originally requested a groin Vascath. It was explained to her the added risks of infection and that we only use those as a last resort. She understood. Placed a RIJ vascath which is in good position and functions well. OK to use. Jr. Saul,Kolby Moore MD Feb 09, 2017 15:20
[2017-02-09] MEDS ORDERED: HEPARIN SODIUM - IV 2,000 UNITS/2 ML VIAL IV FLUSH PRN (15:30)
[2017-02-09] MEDS ORDERED: SODIUM CHLORIDE 0.9% FLUSH 10 ML FLUSH IVF PRN (15:30)
[2017-02-09] MEDS ORDERED: SODIUM CHLOR 0.9% 1000 ML INJ 1,000 ML IV PRN (15:39)
[2017-02-09] MEDS ORDERED: GELATIN 12 MM/7 MM FOAM TOP PRN (15:45)
[2017-02-09] MEDS ORDERED: cloNIDine HCL 0.1 MG TAB PO PRN (15:45)
[2017-02-09] MEDS ORDERED: HEPARIN SODIUM - IV 10,000 UNITS/10 ML VIAL IVF PRN (15:45)
[2017-02-09] MEDS ORDERED: NITROGLYCERIN 0.4 MG SL 25 TABS/BTL SL PRN (15:45)
[2017-02-09] MEDS ORDERED: MANNITOL 12.5 GM/50 ML VIAL IV PRN (15:45)
[2017-02-09] MEDS ORDERED: ACETAMINOPHEN 325 MG TAB PO PRN (15:45)
--- NOTE | 2017-02-09 15:56 | RADRPT ---
EXAM DATE/TIME: 02/09/2017 15:10 [facility] COMPARISON: No previous studies available for comparison. INDICATIONS : Patient with history of chronic kidney disease in need of dialysis catheter placement. MEDICAL HISTORY : HTN, CHF, CKD Stage IV, Chronic anemia and thalassemia, Cholecystitis, HLD, Diabetes SURGICAL HISTORY : Cholecystostomy ENCOUNTER: Initial ACUITY: 4-6 days PAIN SCORE: 8/10 LOCATION: Neck FLUORO TIME: 0.12 minutes IMAGE SERIES: 1 ACCESS: Right internal jugular vein DEVICE(S): 1.) 14 Belgian dual lumen 15 cm Vas Cath PROCEDURE : 1. Ultrasound guided venipuncture. 2. Fluoroscopic guidance. 3. Central line placement. The patient's daughter was requesting a groin catheter for comfort issues. It was explained to her th e additional risks of infection with a groin catheter and the fact that we only utilized this style a ccess as a last resort. She understood and wished to proceed with a nongroin access. The risks, benef its and alternatives to the procedure were explained and verbal and written consent was obtained. Th e site was prepped in sterile fashion. Full sterile technique was used, including cap, mask, sterile gloves and gown and a large sterile sheet. Hand hygiene and 2% chlorhexidine prep was utilized per protocol for cutaneous antisepsis with appropriate dry time for site. The skin and subcutaneous tissues were infiltrated with local anesthetic solution. A suitable site a berkley the vein was selected with ultrasound and fluoroscopic guidance. A small incision was made. Th e vein was accessed under direct ultrasound visualization using the micropuncture technique. The anneliese ropuncture set was exchanged for a 0.035 wire. The tract was dilated. The catheter was advanced int o position under direct fluoroscopic visualization. The catheter was fixed in place with suture and a sterile dressing was applied. The patient tolerated the procedure well and there were no complications. CONCLUSION: Uncomplicated line placement as above. Kolby Hughes Jr., MD on February 09, 2017 at 15:53 Board Certified Radiologist. This report was verified electronically.
[2017-02-09 16:00] VITALS: BP 115/58; PULSE 99; RESP 28; TEMP 98; O2SAT 95
[2017-02-09] MEDS: GENTAMICIN SULFATE (DIALYSIS USE ONLY) 20 MG/2 ML VIAL IV PRN (19:00)
[2017-02-09] MEDS: HEPARIN SODIUM - IV 10,000 UNITS/10 ML VIAL PRN (19:00)
[2017-02-09 20:00] VITALS: BP 119/58; PULSE 93; RESP 16; TEMP 99.7; O2SAT 99
[2017-02-09 22:00] VITALS: PULSE 96
[2017-02-10] VITALS (14 sets, daily range): BP systolic 107–145; BP diastolic 52–60; PULSE 88–99; RESP 8–24; TEMP 98.5–99.7; O2SAT 93–98
[2017-02-10] MEDS: MORPHINE SULFATE 4 MG/ML INJ IV PRN ×2 (02:42→16:18)
[2017-02-10] MEDS: ONDANSETRON HCL 4 MG/2 ML VIAL IVP PRN (03:19)
[2017-02-10] MEDS: CHLORHEXIDINE GLUCONATE 2 % 1 PACK (2 CLOTHS)(taper/protocol) TOPICAL SCH (04:00)
[2017-02-10] MEDS: MIDODRINE 5 MG TAB PO SCH ×4 (06:16→16:14)
[2017-02-10] MEDS: PIPERACIL-TAZO 2.25 GM PREMIX 50 ML IV SCH ×2 (06:16→16:15)
[2017-02-10] MEDS: INSULIN ASPART SUPPLEMENTAL SCALE SQ SCH ×4 (06:19→20:34)
[2017-02-10] MEDS: CARVEDILOL 3.125 MG TAB PO SCH ×2 (09:00→20:33)
[2017-02-10] MEDS: INSULIN DETEMIR 100 UNITS/ML VIAL SQ SCH (09:00)
[2017-02-10] MEDS: ONDANSETRON HCL 4 MG/2 ML VIAL IV PRN (09:36)
[2017-02-10] MEDS: DOCUSATE SODIUM 50 MG/SENNA 8.6 MG TAB PO SCH ×2 (09:36→20:33)
[2017-02-10] MEDS: SODIUM CHLORIDE 0.9% FLUSH 10 ML FLUSH IV FLUSH SCH ×2 (09:37→20:33)
[2017-02-10] MEDS: ALBUMIN HUMAN 25% 25 GM/100 ML BAGP IV PRN ×2 (10:00→10:02)
[2017-02-10] MEDS: HEPARIN SODIUM - IV 10,000 UNITS/10 ML VIAL PRN (10:01)
[2017-02-10] MEDS: GENTAMICIN SULFATE (DIALYSIS USE ONLY) 20 MG/2 ML VIAL IV PRN (10:01)
[2017-02-10] MEDS: SODIUM CHLOR 0.9% 1000 ML INJ 1,000 ML IV PRN (10:27)
--- NOTE | 2017-02-10 12:06 | EKG ---
Date Performed: 02/09/2017 Time Performed: 07:39:46 PTAGE: 66 years EKG: Sinus tachycardia Left bundle branch block Abnormal ECG PREVIOUS TRACING : 02/07/2017 16.52 Compared to prior tracing no significant change DOCTOR: Yao Brunner Interpretating Date/Time 02/10/2017 12:03:32
--- NOTE | 2017-02-10 12:06 | EKG ---
Date Performed: 02/10/2017 Time Performed: 00:54:54 PTAGE: 66 years EKG: Sinus rhythm . Left bundle branch block Abnormal ECG PREVIOUS TRACING : 02/09/2017 07.39 Compared to prior tracing no significant change DOCTOR: Yao Brunner Interpretating Date/Time 02/10/2017 12:03:41
--- NOTE | 2017-02-10 14:30 | HHI.PR ---
Subjective Subjective Notes "I'm in pain" Objective Vitals/I&O Vital Signs Date Time Temp Pulse Resp B/P Pulse Ox O2 Delivery O2 Flow Rate FiO2 02/10/17 12:00 95 Nasal Cannula 2.00 02/10/17 12:00 99.5 99 19 145/60 Labs Laboratory Tests Test 02/09/17 18:27 Troponin I 0.10 Hepatitis A IgM Antibody NEGATIVE Hepatitis B Surface Antigen NEGATIVE Hepatitis B Core IgM Antibody NEGATIVE Hepatitis C Antibody NEGATIVE Date/Time Procedure Status Source Growth 02/08/17 22:22 Gram Stain Ordered Sputum Expectorated Sputum Pending 02/08/17 22:22 Sputum Culture Ordered Sputum Expectorated Sputum Pending 02/07/17 18:45 Aerobic Blood Culture - Preliminary Resulted Blood Other NO GROWTH IN 3 DAYS 02/07/17 18:45 Anaerobic Blood Culture - Preliminary Resulted Blood Other NO GROWTH IN 3 DAYS 02/06/17 15:14 Gram Stain - Final Complete Fluid Bile Fluid 02/06/17 15:14 Body Fluid Culture - Final Complete Fluid Bile Fluid NO GROWTH IN 72 HRS.--AEROBICALLY OR ... Radiology Last Impressions Chest X-Ray 02/07/17 0000 Signed Impressions: Service Date/Time: Tuesday, February 07, 2017 16:18 - CONCLUSION: Diminished lung volumes and probable bibasilar atelectasis. Maikel Peña MD Abdomen X-Ray 02/07/17 0000 Signed Impressions: Service Date/Time: Tuesday, February 07, 2017 16:22 - CONCLUSION: 1. No acute abnormalities. 2. Cholecystostomy tube. Maikel Peña MD Abdomen CT 02/06/17 0000 Signed Impressions: Service Date/Time: Monday, February 06, 2017 16:21 - CONCLUSION: Interval cholecystostomy tube placement. Worsening parenchymal disease in the lung bases. Ney Lutz MD Abdomen/Pelvis CT 02/05/17 1656 Signed Impressions: Service Date/Time: January 18:15 - CONCLUSION: 1. Gallbladder is abnormal. It is markedly distended with gallbladder wall thickening and mild induration of the pericholecystic fat concerning for cholecystitis. High attenuation within the gallbladder lumen may be related to sludge or clot. 2. Left basilar atelectasis and tiny left effusion. Juan De Souza MD Gall Bladder Ultrasound 02/05/17 0000 Signed Impressions: Service Date/Time: January 20:39 - CONCLUSION: 1. The gallbladder is abnormal with findings corresponding to the findings on the CT exam. There is wall thickening, marked distention and the lumen is occupied by echogenic shadowing material which may reflect sludge or hemorrhage. A few stones are suspected. Juan De Souza MD Cardiovascular: Regular Lungs: Clear Abdomen: Other (Dang tube in place with dark bilious drainage ) Extremities: Other (generalized edema ) Narrative Exam [facility] A/P Problem List: (1) Cholecystostomy care (2) Gallstones (3) Cholecystitis (4) Anemia (5) Acute kidney failure (6) Stage 4 chronic kidney disease (7) Diabetes mellitus Assessment and Plan 66 year old female with multiple comorbidities; acute cholecystitis -S/p IR placement of a cholecystostomy tube -Continue Zosyn -Now on HD -Patient remains a poor surgical candidate Attending Statement patient seen at bedside s/p ir drain, with bile present labs better pain better Attestation The exam, history, and the medical decision-making described in the above note were completed with the assistance of the mid-level provider. I reviewed and agree with the findings presented. I attest that I had a [id number] encounter with the patient on the same day, and personally performed and documented my assessment and findings in the medical record. Problem Qualifiers (1) Anemia: Francine Renae Feb 10, 2017 14:30 Freddy Serrato MD Feb 11, 2017 13:56
--- NOTE | 2017-02-10 16:30 | HHI.NPPN ---
Subjective History of Present Illness 66-year-old female with a past medical history of hypertension, diabetes mellitus, chronic kidney disease, anemia and chronic back pain, who was admitted because of abdominal pain, nausea and vomiting. I was called to see the patient because of elevated BUN and creatinine. The patient has known history of chronic kidney disease and she had acute kidney injury. Additional Remarks Patient is alert, feeling better, with nasal cannula, not in distress. Objective Data Data 02/09/17 02/10/17 19:00 07:00 Output Total 1000 ml 320 ml Balance -1000 ml -320 ml Output Urine Total 300 ml Drainage Total 20 ml Hemodialysis 1000 ml Vital Signs Date Time Temp Pulse Resp B/P Pulse Ox O2 Delivery O2 Flow Rate FiO2 02/10/17 12:00 95 Nasal Cannula 2.00 02/10/17 12:00 99.5 99 19 145/60 95 02/10/17 12:00 99 02/10/17 10:00 94 02/10/17 08:12 94 Nasal Cannula 1.00 02/10/17 08:00 99.4 94 8 107/52 93 02/10/17 08:00 94 02/10/17 08:00 93 Nasal Cannula 2.00 02/10/17 06:00 94 02/10/17 05:19 96 Nasal Cannula 1.00 02/10/17 04:00 96 02/10/17 04:00 99.2 96 24 118/56 94 02/10/17 04:00 98 Nasal Cannula 2.00 02/10/17 02:00 95 02/10/17 00:00 98 Nasal Cannula 2.00 02/10/17 00:00 99.7 94 18 116/57 98 02/10/17 00:00 94 02/09/17 22:00 96 02/09/17 20:00 99 Nasal Cannula 2.00 02/09/17 20:00 99.7 93 16 119/58 99 02/09/17 20:00 93 02/09/17 20:00 99 Nasal Cannula 2.00 -: 02/09/17 0726 02/09/17 07 Physical Exam General Appearance: Anxious Eyes Eye Exam: Pupils Equal Throat Throat Exam: Oral Mucosa [place] & Moist Neck Neck Exam: Neck Supple Pulmonary Resp Exam: Breath Sounds Equal, No Distress, Rhonchi, Decreased Bases Cardiology CV Exam: Regular, Normal Sinus Rhythm Gastrointestinal/Abdomen GI Exam: Soft, Bowel Sounds Present, Distended Extremeties Extremities Exam: Trace Edema Neurologic Neuro Exam: Alert, Awake, Oriented Psychiatric Psych Exam: Appropriate Responses Assessment/Plan Assessment Summary: GRADY/Acute Renal Failure, Hypotension, CKD Stage IV Problem List: (1) Diabetes mellitus (2) CHF (congestive heart failure) (3) Cholecystitis (4) Gallstones (5) Elevated LFTs (6) Anemia (7) Stage 4 chronic kidney disease (8) Acute kidney failure Plan Patient still has low urine out put. BP is stable. Creatinine continue to increase K is now better. Most likely has ATN due to hypotension causing GRADY. Continue antibiotics. Urine out put is low. HD started yesterday. Has HD in AM and 1 liter removed. B[P is now better. Follow urine out put and BMP. HD as needed. Problem Qualifiers (1) Anemia: Svitlana Cook MD Feb 10, 2017 16:30
--- NOTE | 2017-02-10 17:28 | HHI.CCPN ---
Subjective Remarks/Hospital Course Hospital Course: 66-year-old female with a past medical history of hypertension, congestive heart failure with a last Echo 12/17/16 w/ EF 30-35%), chronic kidney disease stage IV, Chronic Anemia and Thalassemia who presented to the ER w/ complaints of abdominal pain, nausea and vomiting since the night prior to admission. Denies fever, chills or diarrhea. On arrival, BP 150/72, HR 97, O2 sat 99% on RA, Temp 99.0. CBC at baseline. Creatinine 2.75, previously 3.04 on 12/29/16. LFTs mildly elevated comparison to previous. UA negative. CT Abd/Pelvis w/ abnormal gallbladder, markedly distended gallbladder with wall thickening and mild induration of pericholecystic fat concerning for cholecystitis, so she underwent cholecystostomy tube placement 02/06/2017. She was admitted postprocedure to medical surgical floor. Today she was found to be slightly hypotensive and hypothermic with a temperature 96.2. Critical-care medicine was consulted for sepsis. Subjective: 02/08: Cr continues to rise. continues to be hypotensive as well. remains on 2L o2 by NC. nephrology started bumex infusion. 02/09: Tmax 99.5. The patient continues to complain of chest pain, abdominal pain. No further episodes of nausea and vomiting. Cholecystostomy tube drained approximately 30 cc over the last 24 hours. She was noted to have no urine output over the last 18 hours, despite being on sodium bicarbonate and Bumex infusion. There is reference per nephrology of possible dialysis today. Coag studies obtained for possible IR placement of vascath today. Chemistry results pending. 02/10: Patient tolerating dialysis, 1 L removed yesterday, 1 L removed this a.m. hemodynamically stable. Patient continues to have a very poor appetite. Nutritional consult ordered as well as calorie count. Patient is resistant in movement physical therapy has been consulted for evaluation and treatment. Small amount of cholecystostomy output noted. Objective Vital Signs Date Time Temp Pulse Resp B/P Pulse Ox O2 Delivery O2 Flow Rate FiO2 02/10/17 12:00 95 Nasal Cannula 2.00 02/10/17 12:00 99.5 99 19 145/60 Intake and Output 02/09/17 02/09/17 02/10/17 08:00 16:00 00:00 Intake Total 2113 ml Output Total 10 ml 1000 ml Balance 2103 ml -1000 ml Result Diagram: 02/09/1772502/09/17725 Objective Remarks GENERAL: Frail ill appearing female, lying in bed asleep SKIN: Warm and dry. HEAD: Normocephalic. EYES: No scleral icterus. No injection or drainage. NECK: trachea midline. No JVD right IJ Vas-Cath in situ CARDIOVASCULAR: Regular rate and rhythm RESPIRATORY: Breath sounds equal bilaterally. No accessory muscle use. GASTROINTESTINAL: Abdomen soft, non-tender, nondistended. Right cholecystostomy tube draining minimal bilious secretions MUSCULOSKELETAL: No cyanosis, or edema. EXTREMITIES: No clubbing cyanosis or edema NEURO: awake, alert, oriented. Follows commands 4 extremities Procedures 02/09-Vas-Cath placement per IR A/P Assessment and Plan Assessment: 66yF with septic shock secondary to acute cholecystitis now with acute on chronic kidney injury which may require renal replacement therapy. vascular access very poor and need to save central access for possible impending HD. will add midodrine in an attempt to perfuse end-organs. increase ivf. forced diuresis per nephrology. Acute cholecystitis - Status post cholecystostomy tube placement (day 4)-minimal output noted - Zosyn - IV fluid hydration - Lactic acid normal, WBC improving - Further per GI and general surgery Acute on chronic kidney injury - Worsening creatinine - Management per nephrology-Bumex infusion, sodium bicarbonate infusion discontinued 02/09 - 02/09 for Vas-Cath replacement, initiation of hemodialysis Hypotension-resolved -- likely secondary to sepsis and renal failure -- midodrine 10mg po tid Metabolic acidosis - Due to kidney injury - Treated underlying condition Diabetes mellitus - Levemir and insulin sliding scale Chronic pain syndrome Insomnia -Melatonin 5 mg by mouth daily at bedtime PRN for insomnia - Maintain sleep hygiene, to avoid a ICU delirium Mild protein calorie Malnutrition -Nutrition consult -Calorie count -Renal diet DVT GI prophylaxis - Teds SCDs Level 2 Dispo: Contacted patient's family daughter Johanny [phone]. Provided medical status update. Discussed with HEALTH SAFETY INSTRUCTOR at bedside. Physician Didi Devine MD Feb 10, 2017 17:27
[2017-02-10] MEDS: MELATONIN 5 MG TAB PO PRN (22:08)
[2017-02-11] VITALS (12 sets, daily range): BP systolic 111–138; BP diastolic 56–62; PULSE 86–93; RESP 14–22; TEMP 97.4–100.1; O2SAT 94–96
[2017-02-11] MEDS: MORPHINE SULFATE 4 MG/ML INJ IV PRN (01:14)
[2017-02-11] MEDS: ONDANSETRON HCL 4 MG/2 ML VIAL IVP PRN (01:15)
[2017-02-11] MEDS: diphenhydrAMINE HCL 25 MG CAP PO PRN (01:48)
[2017-02-11 04:18] LABS: HEMATOCRIT 23.9 % (35.0-46.0); MEAN CELL VOLUME 65.6 FL (80.0-100.0); PLATELET COUNT 194 TH/MM3 (150-450); RED BLOOD COUNT 3.65 MIL/MM3 (4.00-5.30); RED CELL DISTRIBUTION WIDTH 15.9 % (11.6-17.2); REVIEW FLAG FINAL; WHITE BLOOD COUNT 7.9 TH/MM3 (4.0-11.0)
[2017-02-11 04:34] LABS: ALKALINE PHOSPHATASE 153 U/L (45-117); ALT (GPT) 126 U/L (10-53); ANION GAP 7 MEQ/L (5-15); AST (GOT) 70 U/L (15-37); BICARBONATE 33.8 MEQ/L (21.0-32.0); BLOOD UREA NITROGEN 41 MG/DL (7-18); CHLORIDE 97 MEQ/L (98-107); GLOMERULAR FILTRATION RATE 9 ML/MIN (>89); MAGNESIUM 2.4 MG/DL (1.5-2.5); POTASSIUM 4.4 MEQ/L (3.5-5.1); SODIUM (NA) 138 MEQ/L (136-145); TOTAL BILIRUBIN ADULT 0.8 MG/DL (0.2-1.0)
[2017-02-11] MEDS: CHLORHEXIDINE GLUCONATE 2 % 1 PACK (2 CLOTHS)(taper/protocol) TOPICAL SCH (04:34)
[2017-02-11] MEDS: PIPERACIL-TAZO 2.25 GM PREMIX 50 ML IV SCH ×2 (06:17→16:05)
[2017-02-11] MEDS: INSULIN ASPART SUPPLEMENTAL SCALE SQ SCH ×4 (06:18→21:00)
[2017-02-11] MEDS: MIDODRINE 5 MG TAB PO SCH ×3 (06:18→16:04)
[2017-02-11] MEDS: CARVEDILOL 3.125 MG TAB PO SCH ×2 (08:12→21:28)
[2017-02-11] MEDS: SODIUM CHLORIDE 0.9% FLUSH 10 ML FLUSH IV FLUSH SCH ×2 (08:12→21:28)
[2017-02-11] MEDS: DOCUSATE SODIUM 50 MG/SENNA 8.6 MG TAB PO SCH ×2 (08:13→21:28)
[2017-02-11] MEDS: INSULIN DETEMIR 100 UNITS/ML VIAL SQ SCH (08:17)
--- NOTE | 2017-02-11 09:32 | HHI.PR ---
Subjective Remarks in no acute distress. but complaining of abdominal pain. no fever. d/w the RN. Objective Vitals Vital Signs Date Time Temp Pulse Resp B/P Pulse Ox O2 Delivery O2 Flow Rate FiO2 02/11/17 06:00 86 02/11/17 04:00 97 Nasal Cannula 2.00 02/11/17 04:00 97.7 86 22 111/56 96 02/11/17 04:00 86 02/11/17 02:00 86 02/11/17 00:00 88 02/11/17 00:00 97.4 86 14 132/61 94 02/11/17 00:00 96 Nasal Cannula 2.00 02/10/17 22:00 93 02/10/17 20:00 90 02/10/17 20:00 98.5 88 18 127/59 93 02/10/17 20:00 93 Nasal Cannula 2.00 02/10/17 18:00 92 02/10/17 16:00 95 Nasal Cannula 2.00 02/10/17 16:00 95 02/10/17 16:00 99.2 95 21 115/57 95 02/10/17 14:00 92 02/10/17 12:00 95 Nasal Cannula 2.00 02/10/17 12:00 99.5 99 19 145/60 95 02/10/17 12:00 99 02/10/17 10:00 94 I/O 02/10/17 02/10/17 02/10/17 02/11/17 02/11/17 02/11/17 07:00 15:00 23:00 07:00 15:00 23:00 Intake Total 338 ml 186 ml 293 ml Output Total 320 ml 1035 ml 51 ml 76 ml Balance -320 ml -697 ml 135 ml 217 ml Intake Oral 250 ml 100 ml 240 ml IV Total 88 ml 86 ml 53 ml Output Urine Total 300 ml 25 ml 50 ml 75 ml Drainage Total 20 ml 10 ml 1 ml 1 ml Hemodialysis 1000 ml Result Diagram: 02/11/17 0352 02/11/17 0352 Imaging Last Impressions Catheter Placement X-Ray 02/09/17 0000 Signed Impressions: Service Date/Time: Thursday, February 09, 2017 15:10 - CONCLUSION: Uncomplicated line placement as above. Kolby Hughes Jr., MD Chest X-Ray 02/07/17 0000 Signed Impressions: Service Date/Time: Tuesday, February 07, 2017 16:18 - CONCLUSION: Diminished lung volumes and probable bibasilar atelectasis. Maikel ePña MD Abdomen X-Ray 02/07/17 0000 Signed Impressions: Service Date/Time: Tuesday, February 07, 2017 16:22 - CONCLUSION: 1. No acute abnormalities. 2. Cholecystostomy tube. Maikel Peña MD Percutaneous Cholangiogram 02/06/17 0000 Signed Impressions: Service Date/Time: Monday, February 06, 2017 15:15 - CONCLUSION: Uncomplicated percutaneous cholecystostomy as above. Thick inspissated bile was noted. The drainage is fairly low given the size of the gallbladder and therefore a CT will be performed to confirm appropriate positioning of the cholecystostomy tube. Kolby Hughes Jr., MD Abdomen CT 02/06/17 0000 Signed Impressions: Service Date/Time: Monday, February 06, 2017 16:21 - CONCLUSION: Interval cholecystostomy tube placement. Worsening parenchymal disease in the lung bases. Ney Lutz MD Abdomen/Pelvis CT 02/05/17 1656 Signed Impressions: Service Date/Time: January 18:15 - CONCLUSION: 1. Gallbladder is abnormal. It is markedly distended with gallbladder wall thickening and mild induration of the pericholecystic fat concerning for cholecystitis. High attenuation within the gallbladder lumen may be related to sludge or clot. 2. Left basilar atelectasis and tiny left effusion. Juan De Souza MD Gall Bladder Ultrasound 02/05/17 0000 Signed Impressions: Service Date/Time: January 20:39 - CONCLUSION: 1. The gallbladder is abnormal with findings corresponding to the findings on the CT exam. There is wall thickening, marked distention and the lumen is occupied by echogenic shadowing material which may reflect sludge or hemorrhage. A few stones are suspected. Juan De Souza MD Objective Remarks GENERAL: in no apparent distress. CARDIOVASCULAR: Regular rate and regular rhythm without murmurs, gallops, or rubs. RESPIRATORY: Clear to auscultation. Breath sounds equal bilaterally. No wheezes , rales, or rhonchi. GASTROINTESTINAL: Abdomen soft, generalized tenderness, nondistended. Normal, active bowel sounds MUSCULOSKELETAL: Extremities without clubbing, cyanosis, or edema. NEURO: Alert & Oriented x4 to person, place, time, situation. Moves all ext x4 Procedures Vas-Cath placement per IR cholecystostomy tube placement Medications and IVs Current Medications Ondansetron HCl (Zofran Inj) 4 mg ONCE ONCE IV PUSH Last administered on 16:37; Start 02/05/17 at 16:30; Stop 02/05/17 at 16:31; Status DC Morphine Sulfate 4 mg 4 mg ONCE ONCE IV PUSH Last administered on 02/05/17 17 :10; Start 02/05/17 at 17:00; Stop 02/05/17 at 17:01; Status DC Sodium Chloride 500 ml @ 500 mls/hr BOLUS ONCE IV Last administered on 17:10; Start 02/05/17 at 17:00; Stop 02/05/17 at 17:59; Status DC Piperacillin Sod/ Tazobactam Sod (Zosyn 3.375 Gm Premix) 50 ml @ 100 mls/hr ONCE ONCE IV Last administered on 02/05/17 18:52; Start 02/05/17 at 18:45; Stop 02/05/17 at 19:14; Status DC Morphine Sulfate (Morphine Inj) 2 mg ONCE ONCE IV PUSH Last administered on 19:00; Start 02/05/17 at 19:00; Stop 02/05/17 at 19:01; Status DC Dextrose (D50w (Vial) Inj) 50 ml UNSCH PRN IV HYPOGLYCEMIA-SEE COMMENTS; Start 02/05/17 at 19:30 Glucagon (Glucagon Inj) 1 mg UNSCH PRN OTHER HYPOGLYCEMIA-SEE COMMENTS; Start 02/05/17 at 19:30 Insulin Aspart 1 1 ACHS SLIDING SCALE SQ Last administered on 02/09/17 16:00 ; Start 02/05/17 at 21:00 Piperacillin Sod/ Tazobactam Sod 50 ml @ 100 mls/hr Q6H IV Last administered on 02/09/17 06:01; Start 02/06/17 at 00:00; Stop 02/09/17 at 16:32; Status DC Sodium Chloride (NS 1000 ml Inj) 1,000 ml @ 50 mls/hr Q20H IV Last administered on 02/06/17 04:19; Start 02/05/17 at 19:16; Status Hold Sodium Chloride (NS Flush) 2 ml UNSCH PRN IV FLUSH FLUSH AFTER USING IV ACCESS ; Start 02/05/17 at 19:30 Sodium Chloride (NS Flush) 2 ml BID IV FLUSH Last administered on 02/11/17 08: 12; Start 02/05/17 at 21:00 Ondansetron HCl (Zofran Inj) 4 mg Q6H PRN IVP NAUSEA OR VOMITING Last administered on 02/11/17 01:15; Start 02/05/17 at 19:30 Acetaminophen (Tylenol) 650 mg Q6H PRN PO FEVER; Start 02/05/17 at 19:30 Morphine Sulfate (Morphine Inj) 2 mg Q3H PRN IV Pain 6-10 Last administered on 02/06/17 07:59; Start 02/05/17 at 19:30; Stop 02/06/17 at 11:21; Status DC Oxycodone HCl (Roxicodone) 5 mg Q4H PRN PO PAIN SCALE 3 TO 5 Last administered on 02/11/17 04:35; Start 02/05/17 at 19:30 Senna/Docusate Sodium (Terese-Colace) 1 tab BID PO Last administered on 08:13; Start 02/05/17 at 21:00 Magnesium Hydroxide (Milk Of Magnesia Liq) 30 ml Q12H PRN PO MILD - MODERATE CONSTIPATION Last administered on 02/06/17 07:59; Start 02/05/17 at 19:30 Sennosides (Senokot) 17.2 mg Q12H PRN PO MODERATE - SEVERE CONSTIPATION; Start 02/05/17 at 19:30 Bisacodyl (Dulcolax Supp) 10 mg DAILY PRN RECTAL SEVERE CONSTIPATION; Start at 19:30 Lactulose (Lactulose Liq) 30 ml DAILY PRN PO SEVERE CONSITIPATION Last administered on 02/06/17 17:46; Start 02/05/17 at 19:30 Amlodipine Besylate (Norvasc) 10 mg DAILY PO Last administered on 02/06/17 07: 57; Start 02/06/17 at 09:00; Status Hold Carvedilol (Coreg) 3.125 mg Q12HR PO Last administered on 02/11/17 08:12; Start 02/05/17 at 21:00 Tizanidine HCl (Zanaflex) 4 mg TID PO Last administered on 02/11/17 08:13; Start 02/06/17 at 09:00 Insulin Detemir (Levemir Inj) 20 units DAILY SQ ; Start 02/06/17 at 09:00; Stop 02/06/17 at 09:00; Status DC Insulin Detemir (Levemir Inj) 10 units DAILY SQ Last administered on 02/11/17 08:17; Start 02/06/17 at 09:00 Promethazine HCl (Phenergan) 25 mg ONCE ONCE PO Last administered on 07:04; Start 02/06/17 at 07:00; Stop 02/06/17 at 07:01; Status DC Furosemide (Lasix Inj) 40 mg ONCE ONCE IV PUSH Last administered on 02/06/17 12:47; Start 02/06/17 at 11:00; Stop 02/06/17 at 11:01; Status DC Sodium Bicarbonate (Sodium Bicarbonate 8.4% Inj) 50 meq ONCE ONCE IV PUSH Last administered on 02/06/17 12:48; Start 02/06/17 at 12:00; Stop 02/06/17 at 12:01; Status DC Morphine Sulfate (Morphine Inj) 1 mg Q4HR PRN IV Pain 6-10 Last administered on 02/11/17 01:14; Start 02/06/17 at 12:00 Fentanyl Citrate (fentaNYL INJ) 250 mcg STK-MED ONCE .ROUTE Last administered on 02/06/17 15:18; Start 02/06/17 at 15:18; Stop 02/06/17 at 15:19; Status DC Iohexol (Omnipaque 350 Inj) 8 ml STK-MED ONCE .XX Last administered on 16:50; Start 02/06/17 at 16:50; Stop 02/06/17 at 16:51; Status DC Ketorolac Tromethamine 15 mg 15 mg ONCE ONCE IV PUSH ; Start 02/07/17 at 04:45 ; Stop 02/07/17 at 04:46; Status DC Sodium Chloride 1,000 ml @ 84 mls/hr [id number] IV Last administered on 15:00; Start 02/07/17 at 15:00; Stop 02/07/17 at 19:40; Status DC Sodium Bicarbonate 150 meq/Dextrose 1,150 ml @ 150 mls/hr Q7H40M IV Last administered on 02/09/17 13:14; Start 02/07/17 at 19:45; Stop 02/09/17 at 15:39 ; Status DC Bumetanide (Bumex Inj) 100 ml @ 4 mls/hr CONTINUOUS IV Last administered on 13:09; Start 02/08/17 at 13:00; Stop 02/09/17 at 15:39; Status DC Midodrine (Proamatine) 10 mg TID@07,12,17 PO Last administered on 02/11/17 06: 18; Start 02/08/17 at 17:00 Miscellaneous Information Patient in critical care unit? Ass... Q361D .XX ; Start 02/08/17 at 23:00 Chlorhexidine Gluconate (Chlorhexidine 2% Cloth) 3 pack DAILY@04 TOPICAL Last administered on 02/11/17 04:34; Start 02/09/17 at 04:00; Stop 02/13/17 at 04:01 Chlorhexidine Gluconate (Chlorhexidine 2% Cloth) 3 pack UNSCH PRN TOPICAL HYGIENIC CARE; Start 02/08/17 at 23:00; Stop 02/13/17 at 22:56 Heparin Sodium (Porcine) (*HEPARIN INJ Periprocedural ONLY) 10,000 units STK- MED ONCE .ROUTE Last administered on 02/09/17 15:10; Start 02/09/17 at 13:51; Stop 02/09/17 at 13:52; Status DC Sodium Chloride (NS Flush) UNSCH PRN IVF SEE PROTOCOL; Start 02/09/17 at 15:30 Heparin Sodium (Porcine) UNSCH PRN IV FLUSH SEE PROTOCOL; Start 02/09/17 at 15 :30 Sodium Chloride (NS 1000 ml Inj) 1,000 ml @ 0 mls/hr Q0M PRN IV For Prime & Rinse Back Last administered on 02/10/17 10:27; Start 02/09/17 at 15:39 Heparin Sodium (Porcine) 8000 units 8,000 units UNSCH PRN IVF WITH DIALYSIS; Start 02/09/17 at 15:45 Sodium Chloride 1,000 ml @ 200 mls/hr Q5H PRN IV WITH DIALYSIS; Start 02/09/17 at 15:39 Sodium Chloride (NS 1000 ml Inj) 1,000 ml @ 0 mls/hr Q0M PRN IV WITH DIALYSIS; Start 02/09/17 at 15:39 Mannitol (Mannitol Inj) 12.5 gm UNSCH PRN IV WITH DIALYSIS; Start 02/09/17 at 15:45 Albumin Human (Albumin 25% Inj) 25 gm UNSCH PRN IV WITH DIALYSIS Last administered on 02/10/17 10:02; Start 02/09/17 at 15:45 Sodium Chloride (NS Flush) 5 ml UNSCH PRN IV FLUSH WITH DIALYSIS; Start at 15:45 Heparin Sodium (Porcine) (Heparin Inj) UNSCH PRN .XX WITH DIALYSIS Last administered on 02/10/17 10:01; Start 02/09/17 at 15:45 Gentamicin Sulfate (Gentamicin (Dialysis) Inj) 20 mg UNSCH PRN IV WITH DIALYSIS Last administered on 02/10/17 10:01; Start 02/09/17 at 15:45 Ondansetron HCl (Zofran Inj) 4 mg UNSCH PRN IV WITH DIALYSIS Last administered on 02/10/17 09:36; Start 02/09/17 at 15:45 Acetaminophen (Tylenol) 650 mg UNSCH PRN PO for headach, pain, temp > 101F; Start 02/09/17 at 15:45 Diphenhydramine HCl (Benadryl) 25 mg UNSCH PRN PO for hives/itching/ anaphylaxis Last administered on 02/11/17 01:48; Start 02/09/17 at 15:45 Nitroglycerin (Nitrostat Sl) 0.4 mg UNSCH PRN SL CHEST PAIN; Start 02/09/17 at 15:45 Clonidine (Catapres) 0.1 mg UNSCH PRN PO for BP > 180/100 X 2 readings; Start 02/09/17 at 15:45 Gelatin 1 foam 1 foam UNSCH PRN TOP SEE LABEL COMMENTS; Start 02/09/17 at 15:45 Piperacillin Sod/ Tazobactam Sod (Zosyn 2.25 Gm Premix) 50 ml @ 100 mls/hr Q12H IV Last administered on 02/11/17 06:17; Start 02/09/17 at 18:00 Melatonin (Melatonin) 5 mg HS PRN PO SLEEP Last administered on 02/10/17 22:08 ; Start 02/10/17 at 17:15 A/P Assessment and Plan A/P Acute cholecystitis - Status post cholecystostomy tube placement- - continue Zosyn -pain control - Further per general surgery Acute on chronic kidney injury - Worsening creatinine - Management per nephrology-Bumex infusion, sodium bicarbonate infusion discontinued 02/09 - 02/09 for Vas-Cath replacement, initiation of hemodialysis Hypotension-resolved -- likely secondary to sepsis and renal failure -- midodrine 10mg po tid Metabolic acidosis - Due to kidney injury - Treated underlying condition Diabetes mellitus - Levemir and insulin sliding scale Chronic pain syndrome Insomnia -Melatonin 5 mg by mouth daily at bedtime PRN for insomnia - Maintain sleep hygiene, to avoid a ICU delirium Mild protein calorie Malnutrition -Nutrition consult -Calorie count -Renal diet anemia of chronic disease will monitor H/H. consult hematology ( patient is being followed up by ). DVT GI prophylaxis - Teds SCDs continue PT. transfer to floor. d/w the patient's daughter and RN. Leesa Holguin MD Feb 11, 2017 09:32
--- NOTE | 2017-02-11 10:53 | HHI.PR ---
Subjective Subjective Notes Resting in bed eating breakfast Asked to have pillows rearranged Objective Vitals/I&O Vital Signs Date Time Temp Pulse Resp B/P Pulse Ox O2 Delivery O2 Flow Rate FiO2 02/11/17 06:00 86 02/11/17 04:00 97 Nasal Cannula 2.00 02/11/17 04:00 97.7 22 111/56 Labs Laboratory Tests Test 02/11/17 03:52 White Blood Count 7.9 Red Blood Count 3.65 Hemoglobin 7.7 Hematocrit 23.9 Mean Corpuscular Volume 65.6 Mean Corpuscular Hemoglobin 21.0 Mean Corpuscular Hemoglobin 32.0 Concent Red Cell Distribution Width 15.9 Platelet Count 194 Mean Platelet Volume 8.8 Sodium Level 138 Potassium Level 4.4 Chloride Level 97 Carbon Dioxide Level 33.8 Anion Gap 7 Blood Urea Nitrogen 41 Creatinine 5.70 Estimat Glomerular Filtration 9 Rate Random Glucose 95 Calcium Level 8.6 Phosphorus Level 4.9 Magnesium Level 2.4 Total Bilirubin 0.8 Aspartate Amino Transf 70 (AST/SGOT) Alanine Aminotransferase 126 (ALT/SGPT) Alkaline Phosphatase 153 Total Protein 7.3 Albumin 2.3 Lipase 127 Date/Time Procedure Status Source Growth 02/08/17 22:22 Gram Stain Ordered Sputum Expectorated Sputum Pending 02/08/17 22:22 Sputum Culture Ordered Sputum Expectorated Sputum Pending 02/07/17 18:45 Aerobic Blood Culture - Preliminary Resulted Blood Other NO GROWTH IN 3 DAYS 02/07/17 18:45 Anaerobic Blood Culture - Preliminary Resulted Blood Other NO GROWTH IN 3 DAYS 02/06/17 15:14 Gram Stain - Final Complete Fluid Bile Fluid 02/06/17 15:14 Body Fluid Culture - Final Complete Fluid Bile Fluid NO GROWTH IN 72 HRS.--AEROBICALLY OR ... Radiology Last Impressions Chest X-Ray 02/07/17 0000 Signed Impressions: Service Date/Time: Tuesday, February 07, 2017 16:18 - CONCLUSION: Diminished lung volumes and probable bibasilar atelectasis. Maikel Pñea MD Abdomen X-Ray 02/07/17 0000 Signed Impressions: Service Date/Time: Tuesday, February 07, 2017 16:22 - CONCLUSION: 1. No acute abnormalities. 2. Cholecystostomy tube. Maikel Peña MD Abdomen CT 02/06/17 0000 Signed Impressions: Service Date/Time: Monday, February 06, 2017 16:21 - CONCLUSION: Interval cholecystostomy tube placement. Worsening parenchymal disease in the lung bases. Ney Lutz MD Abdomen/Pelvis CT 02/05/17 1656 Signed Impressions: Service Date/Time: January 18:15 - CONCLUSION: 1. Gallbladder is abnormal. It is markedly distended with gallbladder wall thickening and mild induration of the pericholecystic fat concerning for cholecystitis. High attenuation within the gallbladder lumen may be related to sludge or clot. 2. Left basilar atelectasis and tiny left effusion. Juan De Souza MD Gall Bladder Ultrasound 02/05/17 0000 Signed Impressions: Service Date/Time: January 20:39 - CONCLUSION: 1. The gallbladder is abnormal with findings corresponding to the findings on the CT exam. There is wall thickening, marked distention and the lumen is occupied by echogenic shadowing material which may reflect sludge or hemorrhage. A few stones are suspected. Juan De Souza MD Cardiovascular: Regular Lungs: Clear Abdomen: Other (minimal RUQ tenderness; cathy tube in place with no drainage in collection bag ) Extremities: No edema Narrative Exam RIJ vascat A/P Problem List: (1) Cholecystostomy care (2) Gallstones (3) Cholecystitis (4) Anemia (5) Acute kidney failure (6) Stage 4 chronic kidney disease (7) Diabetes mellitus Assessment and Plan 66 year old female with multiple comorbidities; acute cholecystitis -S/p IR placement of a cholecystostomy tube -Continue Zosyn -Diet as tolerated -Now on HD -Patient remains a poor surgical candidate Attending Statement patient seen at bedside s/p cathy tube poor surgical candidate Attestation The exam, history, and the medical decision-making described in the above note were completed with the assistance of the mid-level provider. I reviewed and agree with the findings presented. I attest that I had a [id number] encounter with the patient on the same day, and personally performed and documented my assessment and findings in the medical record. Problem Qualifiers (1) Anemia: Francine Renae Feb 11, 2017 10:52 Freddy Serrato MD Feb 23, 2017 21:30
--- NOTE | 2017-02-11 19:03 | HHI.NPPN ---
Subjective History of Present Illness 66-year-old female with a past medical history of hypertension, diabetes mellitus, chronic kidney disease, anemia and chronic back pain, who was admitted because of abdominal pain, nausea and vomiting. I was called to see the patient because of elevated BUN and creatinine. The patient has known history of chronic kidney disease and she had acute kidney injury. Additional Remarks Patient is alert, now eating, no SOB, has weakness in legs, and pain in knees. Objective Data Data 02/10/17 02/11/17 19:00 07:00 Intake Total 338 ml 479 ml Output Total 1035 ml 127 ml Balance -697 ml 352 ml Intake Oral 250 ml 340 ml IV Total 88 ml 139 ml Output Urine Total 25 ml 125 ml Drainage Total 10 ml 2 ml Hemodialysis 1000 ml Vital Signs Date Time Temp Pulse Resp B/P Pulse Ox O2 Delivery O2 Flow Rate FiO2 02/11/17 18:00 90 02/11/17 16:00 96 Nasal Cannula 2.00 02/11/17 16:00 99.6 90 22 138/58 95 02/11/17 16:00 90 02/11/17 14:00 91 02/11/17 12:00 96 Nasal Cannula 2.00 02/11/17 12:00 93 02/11/17 12:00 98.6 93 18 135/62 96 02/11/17 10:00 91 02/11/17 08:00 87 02/11/17 08:00 98.0 87 19 120/57 96 02/11/17 08:00 96 Nasal Cannula 2.00 02/11/17 06:00 86 02/11/17 04:00 97 Nasal Cannula 2.00 02/11/17 04:00 97.7 86 22 111/56 96 02/11/17 04:00 86 02/11/17 02:00 86 02/11/17 00:00 88 02/11/17 00:00 97.4 86 14 132/61 94 02/11/17 00:00 96 Nasal Cannula 2.00 02/10/17 22:00 93 02/10/17 20:00 90 02/10/17 20:00 98.5 88 18 127/59 93 02/10/17 20:00 93 Nasal Cannula 2.00 -: 02/11/17 0352 02/11/17 0352 Physical Exam General Appearance: Anxious Eyes Eye Exam: Pupils Equal Throat Throat Exam: Oral Mucosa Pender & Moist Neck Neck Exam: Neck Supple Pulmonary Resp Exam: Breath Sounds Equal, No Distress, Rhonchi, Decreased Bases Cardiology CV Exam: Regular, Normal Sinus Rhythm Gastrointestinal/Abdomen GI Exam: Soft, Bowel Sounds Present, Distended Extremeties Extremities Exam: Trace Edema Neurologic Neuro Exam: Alert, Awake, Oriented Psychiatric Psych Exam: Appropriate Responses Assessment/Plan Assessment Summary: GRADY/Acute Renal Failure, Hypotension, CKD Stage IV Problem List: (1) Diabetes mellitus (2) CHF (congestive heart failure) (3) Cholecystitis (4) Gallstones (5) Elevated LFTs (6) Anemia (7) Stage 4 chronic kidney disease (8) Acute kidney failure Plan Patient still has low urine out put. BP is stable. Creatinine continue to increase Most likely has ATN due to hypotension causing GRADY. Continue antibiotics. Urine out put is low. HD done yesterday. Follow urine out put and BMP. HD in AM and as needed. Problem Qualifiers (1) Anemia: Svitlana Cook MD Feb 11, 2017 19:03
[2017-02-12] VITALS (8 sets, daily range): BP systolic 115–152; BP diastolic 56–67; PULSE 80–93; RESP 16–26; TEMP 98.1–98.8; O2SAT 90–96
[2017-02-12] MEDS: MORPHINE SULFATE 4 MG/ML INJ IV PRN ×4 (01:20→22:22)
[2017-02-12] MEDS: ONDANSETRON HCL 4 MG/2 ML VIAL IVP PRN (03:32)
[2017-02-12] MEDS: CHLORHEXIDINE GLUCONATE 2 % 1 PACK (2 CLOTHS)(taper/protocol) TOPICAL SCH (05:00)
[2017-02-12] MEDS: PIPERACIL-TAZO 2.25 GM PREMIX 50 ML IV SCH ×2 (06:14→18:00)
[2017-02-12] MEDS: diphenhydrAMINE HCL 25 MG CAP PO PRN (06:15)
[2017-02-12] MEDS: MIDODRINE 5 MG TAB PO SCH ×3 (06:16→18:05)
[2017-02-12] MEDS: INSULIN ASPART SUPPLEMENTAL SCALE SQ SCH ×4 (06:18→21:09)
[2017-02-12] MEDS: SODIUM CHLORIDE 0.9% FLUSH 10 ML FLUSH IV FLUSH SCH ×2 (09:10→21:00)
[2017-02-12] MEDS: DOCUSATE SODIUM 50 MG/SENNA 8.6 MG TAB PO SCH ×2 (09:10→22:22)
[2017-02-12] MEDS: CARVEDILOL 3.125 MG TAB PO SCH ×2 (09:10→21:00)
[2017-02-12] MEDS: INSULIN DETEMIR 100 UNITS/ML VIAL SQ SCH (09:17)
--- NOTE | 2017-02-12 10:13 | HHI.NPPN ---
Subjective History of Present Illness 66-year-old female with a past medical history of hypertension, diabetes mellitus, chronic kidney disease, anemia and chronic back pain, who was admitted because of abdominal pain, nausea and vomiting. I was called to see the patient because of elevated BUN and creatinine. The patient has known history of chronic kidney disease and she had acute kidney injury. Additional Remarks Patient is alert, now on dialysis, mild SOB, still has weakness in legs. Objective Data Data 02/11/17 02/12/17 19:00 07:00 Intake Total 530 ml 262 ml Output Total 75 ml 300 ml Balance 455 ml -38 ml Intake Oral 480 ml 200 ml IV Total 50 ml 62 ml Output Urine Total 75 ml 300 ml Stool Total 0 ml Drainage Total 0 ml Bladder Scan Volume Amount 924 ml 100 ml # Bowel Movements 0 Vital Signs Date Time Temp Pulse Resp B/P Pulse Ox O2 Delivery O2 Flow Rate FiO2 02/12/17 09:24 Nasal Cannula 3.00 02/12/17 08:25 98.8 88 20 126/58 96 02/12/17 04:00 98.1 85 17 115/57 96 02/12/17 01:45 83 02/12/17 00:00 98.5 84 26 119/56 93 02/11/17 22:00 90 02/11/17 20:00 90 02/11/17 20:00 Nasal Cannula 2.00 02/11/17 18:00 90 02/11/17 16:00 96 Nasal Cannula 2.00 02/11/17 16:00 97.6 90 22 138/58 95 02/11/17 16:00 90 02/11/17 14:00 91 02/11/17 12:00 96 Nasal Cannula 2.00 02/11/17 12:00 93 02/11/17 12:00 100.1 93 18 135/62 96 -: 02/11/17 0352 02/11/17 0352 Physical Exam General Appearance: Anxious Eyes Eye Exam: Pupils Equal Throat Throat Exam: Oral Mucosa Kaylor & Moist Neck Neck Exam: Neck Supple Pulmonary Resp Exam: Breath Sounds Equal, No Distress, Rhonchi, Decreased Bases Cardiology CV Exam: Regular, Normal Sinus Rhythm Gastrointestinal/Abdomen GI Exam: Soft, Bowel Sounds Present, Distended Extremeties Extremities Exam: Trace Edema Neurologic Neuro Exam: Alert, Awake, Oriented Psychiatric Psych Exam: Appropriate Responses Assessment/Plan Assessment Summary: GRADY/Acute Renal Failure, Hypotension, CKD Stage IV Problem List: (1) Diabetes mellitus (2) CHF (congestive heart failure) (3) Cholecystitis (4) Gallstones (5) Elevated LFTs (6) Anemia (7) Stage 4 chronic kidney disease (8) Acute kidney failure Plan BP is stable. Creatinine still elevated. Most likely has ATN due to hypotension causing GRADY. Continue antibiotics. Urine out put is slightly better. HD now, remove 2-2.5 liters. Add Epogen with HD. Watch for renal recovery. Problem Qualifiers (1) Anemia: Svitlana Cook MD Feb 12, 2017 10:13
--- NOTE | 2017-02-12 11:43 | MB ---
cc: MARIAH JORDAN MD, ABDUL Q. MD DATE OF CONSULTATION 02/12/2017 CONSULT REQUESTED BY The Hospitalist Service. REASON FOR CONSULTATION Microcytic anemia UNDERLYING HEMATOLOGIC DIAGNOSES 1. Sickle-cell anemia trait 2. Thalassemia trait 3. Anemia of chronic renal insufficiency 4. Monoclonal gammopathy of unknown significance. CHIEF COMPLAINT Ms. Rg reports developing abdominal pain and generalized weakness. She was brought into the hospital on 02/05/2017. The patient was noted to have cholecystitis and a cholecystostomy tube was placed by interventional radiology on 02/06/2017. She was also noted to be in acute on chronic renal in the renal failure at the time of presentation. Her renal function worsened and she was initiated on hemodialysis via a tunneled catheter. She is presently on intravenous antibiotics with Zosyn for management of cholecystitis. The hematology service has been asked to see here for management of her anemia. PAST MEDICAL HISTORY 1. Sickle-cell trait. 2. Thalassemia trait. 3. Chronic microcytic anemia. 4. End-stage renal failure. 5. Anemia of chronic renal insufficiency. 6. Diabetes 7. Diabetic retinopathy 8. Hypertension 9. Obesity 10. Osteoarthritis 11. Monoclonal gammopathy of unknown significance. PAST SURGICAL HISTORY 1. Cataract surgery 2. Colonoscopies GYNECOLOGIC HISTORY 6, para 6 postmenopausal. FAMILY HISTORY No oncologic diagnoses noted. She does have sickle cell trait in the family. SOCIAL HISTORY She is retired. She lives at home with her . She is retired. She, I believe, works in the [employer] or [employer] in the [employer]. ALLERGIES LISINOPRIL WHICH MAKES HER COUGH. CURRENT INPATIENT MEDICATIONS 1. Zosyn 2.25 grams IV q.12 h. 2. Tylenol 650 mg p.o. q.6 h as needed for fever. 3. Albumin 25% as needed with hemodialysis 4. Carvedilol 3.125 mg p.o. q.12 hours. 5. Clonidine 0.1 mg p.o. as needed for hypertension. 6. Diphenhydramine 25 mg p.o. as needed for hives and itching. 7. Heparin with hemodialysis. 8. Lactulose 30 mL p.o. daily. 9. NovoLog insulin per sliding scale. 10. Mannitol 12.5 mg IV as needed with dialysis. 11. Melatonin 5 mg p.o. q.h.s. 12. Midodrine 10 mg p.o. t.i.d. 13. Morphine 1 mg IV q.4 h. 14. Zofran 4 mg IV q.6 h as needed for nausea and vomiting. 15. Oxycodone 5 mg p.o. q.4 h as needed for severe pain. 16. Zanaflex 4 mg p.o. t.i.d. REVIEW OF SYSTEMS A 13-point review of systems is obtained. The patient reports fatigue, weakness, loss of appetite. She denies fevers or chills at this time. HEENT: Denies headaches, she reports blurry vision, she reports her vision is generally poor. RESPIRATORY: She reports difficulty breathing with minimal exertion. Denies cough, hemoptysis. CARDIOVASCULAR: Denies angina-like chest pain. She reports palpitations. She denies lower extremity edema. GI: Denies nausea, vomiting, diarrhea, hematochezia, or melena. She does report abdominal distension and right upper quadrant abdominal pain and cramps, especially after eating : No complaints, she does make urine. 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 She tells me she has trouble getting up and standing up. PHYSICAL EXAMINATION VITAL SIGNS: Temperature of 98.8 degrees Fahrenheit, heart rate 88 beats per minute, blood pressure is 126/58, respiratory rate is 20, O2 sats are 96% on three liters nasal cannula. GENERAL PHYSICAL APPEARANCE: Ms. Rg is an elderly female, she is sitting up in bed, she appears to be quite frail. She is not, however, acutely distressed. HEENT: Head is atraumatic, normocephalic. Conjunctive are pale, she has a left drooping eyelid. Her right pupil is reactive. Oral exam, pale mucous membranes. No pharyngeal erythema. NECK: No palpable cervical or supraclavicular adenopathy. RESPIRATORY: Good air movement bilaterally with poor inspiratory effort and decreased bibasilar breath sounds. CARDIOVASCULAR: Regular rate and rhythm, S1-S2. No does have a flow murmur. ABDOMEN: Protuberant belly, she does have a catheter in place over the right upper quadrant. It is draining thick bile which is noted in the bag. The abdomen is not tender to deep palpation. There is no organ enlargement noted. EXTREMITIES: Lower extremities, no pretibial edema or calf tenderness. Interestingly, she has no movement of the lower extremities, she cannot even twitch her toe. She denies sensory deficits, but she has 0/5 movement of her lower extremities bilaterally. Upper extremities 4/5 strength. LABORATORY FINDINGS Blood work dated 02/11/2017: WBC count 7.9, hemoglobin 7.7 gm/dl, hematocrit 24%, MCV 65.6, RDW is 16. Platelet count is 194. Chemistries: Sodium 138, potassium 4.4, chloride 97, bicarb 33.8, BUN 41, creatinine is 5.7, EGFR is 9, random glucose is 95, calcium 8.6, phosphorus is 4.9, magnesium is 2.4, total bilirubin is 0.8, AST 70, ALT 126, alkaline phosphatase 153, troponin is 0.1, albumin is 2.3, lipase of 127. IMAGING STUDIES CT scan of the abdomen dated 08/08/2016: Gallbladder is abnormal, markedly distended with gallbladder wall thickening and mild induration of the Terese-cholecystic fat concerning for cholecystitis. There may be sludge or a clot in the gallbladder. ASSESSMENT Ms. Rg is a 66-year-old female with multiple medical comorbid conditions as outlined above. From a hematologic standpoint, she has had a chronic microcytic anemia secondary to her sickle cell trait and thalassemia trait both of which are hereditary. Over the past few years, there has been worsening anemia and the worsening anemia has corresponded with her declining renal function. The etiology of her renal dysfunction is likely her underlying diabetes and hypertension. She presented to the hospital on 02/05/2017 with complaints of abdominal pain and imaging studies revealed cholecystitis. She required percutaneous drain to be placed. During the hospitalization, her renal function worsened likely secondary to acute tubular necrosis related to her sepsis. She is now on hemodialysis. The hematology service has been asked to see the patient for management of the anemia. This patient was hospitalized about a month and half ago and she had anemia at that time as well. She did undergo a workup including hemoglobin electrophoresis as well as serum protein electrophoresis as well. She was found to have a polyclonal gammopathy at that time, but no evidence of a plasma cell disorder. Her serum iron studies, which were most recently done in December of 2015, did indicate some iron deficiency and she was treated with iron replacement therapy. She was also treated with Epogen injection while in the hospital. RECOMMENDATIONS 1. Microcytic anemia: Likely a combination of multiple factors including her underlying hereditary sickle cell trait, thalassemia trait which explained the microcytosis. She may have a component of iron deficiency as well. The patient also has worsening renal function and due to that she does have decreased synthetic function of the bone marrow especially of the red cell lineage. She will be a candidate for epoetin replacement/supplementation as she is now on hemodialysis. 2. For thoroughness sake, I will repeat serum iron studies and obtain a stool for occult blood testing to rule out active GI bleeding. Should she be iron deficient, she will be initiated on intravenous iron as well. MD LAURA Israel/[place] /9:41 AM /11:06 AM
[2017-02-12] MEDS: GENTAMICIN SULFATE (DIALYSIS USE ONLY) 20 MG/2 ML VIAL IV PRN (11:49)
[2017-02-12] MEDS: HEPARIN SODIUM - IV 10,000 UNITS/10 ML VIAL PRN (11:49)
[2017-02-12] MEDS: EPOETIN ALFA 20,000 UNITS/ML VIAL IV PRN (11:50)
--- NOTE | 2017-02-12 13:06 | HHI.PR ---
Subjective Remarks is having her HD today. pain is fairly controlled. no fever. Objective Vitals Vital Signs Date Time Temp Pulse Resp B/P Pulse Ox O2 Delivery O2 Flow Rate FiO2 02/12/17 09:24 Nasal Cannula 3.00 02/12/17 08:25 98.8 88 20 126/58 96 02/12/17 04:00 98.1 85 17 115/57 96 02/12/17 01:45 83 02/12/17 00:00 98.5 84 26 119/56 93 02/11/17 22:00 90 02/11/17 20:00 90 02/11/17 20:00 Nasal Cannula 2.00 02/11/17 18:00 90 02/11/17 16:00 96 Nasal Cannula 2.00 02/11/17 16:00 97.6 90 22 138/58 95 02/11/17 16:00 90 02/11/17 14:00 91 I/O 02/11/17 02/11/17 02/11/17 02/12/17 02/12/17 02/12/17 06:59 14:59 22:59 06:59 14:59 22:59 Intake Total 293 ml 530 ml 262 ml Output Total 76 ml 75 ml 200 ml 100 ml Balance 217 ml 455 ml 62 ml -100 ml Intake Oral 240 ml 480 ml 200 ml IV Total 53 ml 50 ml 62 ml Output Urine Total 75 ml 75 ml 200 ml 100 ml Stool Total 0 ml Drainage Total 1 ml 0 ml Bladder Scan Volume Amount 924 ml 100 ml # Bowel Movements 0 Result Diagram: 02/11/17 0352 02/11/17 0352 Imaging Last Impressions Catheter Placement X-Ray 02/09/17 0000 Signed Impressions: Service Date/Time: Thursday, February 09, 2017 15:10 - CONCLUSION: Uncomplicated line placement as above. Kolby Hughes Jr., MD Chest X-Ray 02/07/17 0000 Signed Impressions: Service Date/Time: Tuesday, February 07, 2017 16:18 - CONCLUSION: Diminished lung volumes and probable bibasilar atelectasis. Maikel Peña MD Abdomen X-Ray 02/07/17 0000 Signed Impressions: Service Date/Time: Tuesday, February 07, 2017 16:22 - CONCLUSION: 1. No acute abnormalities. 2. Cholecystostomy tube. Maikel Peña MD Percutaneous Cholangiogram 02/06/17 0000 Signed Impressions: Service Date/Time: Monday, February 06, 2017 15:15 - CONCLUSION: Uncomplicated percutaneous cholecystostomy as above. Thick inspissated bile was noted. The drainage is fairly low given the size of the gallbladder and therefore a CT will be performed to confirm appropriate positioning of the cholecystostomy tube. Kolby Hughes Jr., MD Abdomen CT 02/06/17 0000 Signed Impressions: Service Date/Time: Monday, February 06, 2017 16:21 - CONCLUSION: Interval cholecystostomy tube placement. Worsening parenchymal disease in the lung bases. Ney Lutz MD Abdomen/Pelvis CT 02/05/17 1656 Signed Impressions: Service Date/Time: January 18:15 - CONCLUSION: 1. Gallbladder is abnormal. It is markedly distended with gallbladder wall thickening and mild induration of the pericholecystic fat concerning for cholecystitis. High attenuation within the gallbladder lumen may be related to sludge or clot. 2. Left basilar atelectasis and tiny left effusion. Juan De Souza MD Gall Bladder Ultrasound 02/05/17 0000 Signed Impressions: Service Date/Time: January 20:39 - CONCLUSION: 1. The gallbladder is abnormal with findings corresponding to the findings on the CT exam. There is wall thickening, marked distention and the lumen is occupied by echogenic shadowing material which may reflect sludge or hemorrhage. A few stones are suspected. Juan De Souza MD Objective Remarks GENERAL: in no apparent distress. CARDIOVASCULAR: Regular rate and regular rhythm without murmurs, gallops, or rubs. RESPIRATORY: Clear to auscultation. Breath sounds equal bilaterally. No wheezes , rales, or rhonchi. GASTROINTESTINAL: Abdomen soft, generalized tenderness, nondistended. Normal, active bowel sounds MUSCULOSKELETAL: Extremities without clubbing, cyanosis, or edema. NEURO: Alert & Oriented x4 to person, place, time, situation. Moves all ext x4 Procedures Vas-Cath placement per IR cholecystostomy tube placement Medications and IVs Current Medications Ondansetron HCl (Zofran Inj) 4 mg ONCE ONCE IV PUSH Last administered on t 16:37; Start 02/05/17 at 16:30; Stop 02/05/17 at 16:31; Status DC Morphine Sulfate 4 mg 4 mg ONCE ONCE IV PUSH Last administered on 02/05/17 17 :10; Start 02/05/17 at 17:00; Stop 02/05/17 at 17:01; Status DC Sodium Chloride 500 ml @ 500 mls/hr BOLUS ONCE IV Last administered on 17:10; Start 02/05/17 at 17:00; Stop 02/05/17 at 17:59; Status DC Piperacillin Sod/ Tazobactam Sod (Zosyn 3.375 Gm Premix) 50 ml @ 100 mls/hr ONCE ONCE IV Last administered on 02/05/17 18:52; Start 02/05/17 at 18:45; Stop 02/05/17 at 19:14; Status DC Morphine Sulfate (Morphine Inj) 2 mg ONCE ONCE IV PUSH Last administered on 19:00; Start 02/05/17 at 19:00; Stop 02/05/17 at 19:01; Status DC Dextrose (D50w (Vial) Inj) 50 ml UNSCH PRN IV HYPOGLYCEMIA-SEE COMMENTS; Start 02/05/17 at 19:30 Glucagon (Glucagon Inj) 1 mg UNSCH PRN OTHER HYPOGLYCEMIA-SEE COMMENTS; Start 02/05/17 at 19:30 Insulin Aspart 1 1 ACHS SLIDING SCALE SQ Last administered on 02/12/17 06:18 ; Start 02/05/17 at 21:00 Piperacillin Sod/ Tazobactam Sod 50 ml @ 100 mls/hr Q6H IV Last administered on 02/09/17 06:01; Start 02/06/17 at 00:00; Stop 02/09/17 at 16:32; Status DC Sodium Chloride (NS 1000 ml Inj) 1,000 ml @ 50 mls/hr Q20H IV Last administered on 02/06/17 04:19; Start 02/05/17 at 19:16; Status Hold Sodium Chloride (NS Flush) 2 ml UNSCH PRN IV FLUSH FLUSH AFTER USING IV ACCESS ; Start 02/05/17 at 19:30 Sodium Chloride (NS Flush) 2 ml BID IV FLUSH Last administered on 02/12/17 09: 10; Start 02/05/17 at 21:00 Ondansetron HCl (Zofran Inj) 4 mg Q6H PRN IVP NAUSEA OR VOMITING Last administered on 02/12/17 03:32; Start 02/05/17 at 19:30 Acetaminophen (Tylenol) 650 mg Q6H PRN PO FEVER; Start 02/05/17 at 19:30 Morphine Sulfate (Morphine Inj) 2 mg Q3H PRN IV Pain 6-10 Last administered on 02/06/17 07:59; Start 02/05/17 at 19:30; Stop 02/06/17 at 11:21; Status DC Oxycodone HCl (Roxicodone) 5 mg Q4H PRN PO PAIN SCALE 3 TO 5 Last administered on 02/12/17 03:45; Start 02/05/17 at 19:30 Senna/Docusate Sodium (Terese-Colace) 1 tab BID PO Last administered on 09:10; Start 02/05/17 at 21:00 Magnesium Hydroxide (Milk Of Magnesia Liq) 30 ml Q12H PRN PO MILD - MODERATE CONSTIPATION Last administered on 02/06/17 07:59; Start 02/05/17 at 19:30 Sennosides (Senokot) 17.2 mg Q12H PRN PO MODERATE - SEVERE CONSTIPATION; Start 02/05/17 at 19:30 Bisacodyl (Dulcolax Supp) 10 mg DAILY PRN RECTAL SEVERE CONSTIPATION; Start at 19:30 Lactulose (Lactulose Liq) 30 ml DAILY PRN PO SEVERE CONSITIPATION Last administered on 02/06/17 17:46; Start 02/05/17 at 19:30 Amlodipine Besylate (Norvasc) 10 mg DAILY PO Last administered on 02/06/17 07: 57; Start 02/06/17 at 09:00; Status Hold Carvedilol (Coreg) 3.125 mg Q12HR PO Last administered on 02/12/17 09:10; Start 02/05/17 at 21:00 Tizanidine HCl (Zanaflex) 4 mg TID PO Last administered on 02/12/17 09:10; Start 02/06/17 at 09:00 Insulin Detemir (Levemir Inj) 20 units DAILY SQ ; Start 02/06/17 at 09:00; Stop 02/06/17 at 09:00; Status DC Insulin Detemir (Levemir Inj) 10 units DAILY SQ Last administered on 02/12/17 09:17; Start 02/06/17 at 09:00 Promethazine HCl (Phenergan) 25 mg ONCE ONCE PO Last administered on 07:04; Start 02/06/17 at 07:00; Stop 02/06/17 at 07:01; Status DC Furosemide (Lasix Inj) 40 mg ONCE ONCE IV PUSH Last administered on 02/06/17 12:47; Start 02/06/17 at 11:00; Stop 02/06/17 at 11:01; Status DC Sodium Bicarbonate (Sodium Bicarbonate 8.4% Inj) 50 meq ONCE ONCE IV PUSH Last administered on 02/06/17 12:48; Start 02/06/17 at 12:00; Stop 02/06/17 at 12:01; Status DC Morphine Sulfate (Morphine Inj) 1 mg Q4HR PRN IV Pain 6-10 Last administered on 02/12/17 06:15; Start 02/06/17 at 12:00 Fentanyl Citrate (fentaNYL INJ) 250 mcg STK-MED ONCE .ROUTE Last administered on 02/06/17 15:18; Start 02/06/17 at 15:18; Stop 02/06/17 at 15:19; Status DC Iohexol (Omnipaque 350 Inj) 8 ml STK-MED ONCE .XX Last administered on 16:50; Start 02/06/17 at 16:50; Stop 02/06/17 at 16:51; Status DC Ketorolac Tromethamine 15 mg 15 mg ONCE ONCE IV PUSH ; Start 02/07/17 at 04:45 ; Stop 02/07/17 at 04:46; Status DC Sodium Chloride 1,000 ml @ 84 mls/hr [id number] IV Last administered on 15:00; Start 02/07/17 at 15:00; Stop 02/07/17 at 19:40; Status DC Sodium Bicarbonate 150 meq/Dextrose 1,150 ml @ 150 mls/hr Q7H40M IV Last administered on 02/09/17 13:14; Start 02/07/17 at 19:45; Stop 02/09/17 at 15:39 ; Status DC Bumetanide (Bumex Inj) 100 ml @ 4 mls/hr CONTINUOUS IV Last administered on 13:09; Start 02/08/17 at 13:00; Stop 02/09/17 at 15:39; Status DC Midodrine (Proamatine) 10 mg TID@07,12,17 PO Last administered on 02/12/17 06: 16; Start 02/08/17 at 17:00 Miscellaneous Information Patient in critical care unit? Ass... [id number] .XX ; Start 02/08/17 at 23:00 Chlorhexidine Gluconate (Chlorhexidine 2% Cloth) 3 pack DAILY@04 TOPICAL Last administered on 02/11/17 04:34; Start 02/09/17 at 04:00; Stop 02/13/17 at 04:01 Chlorhexidine Gluconate (Chlorhexidine 2% Cloth) 3 pack UNSCH PRN TOPICAL HYGIENIC CARE; Start 02/08/17 at 23:00; Stop 02/13/17 at 22:56 Heparin Sodium (Porcine) (*HEPARIN INJ Periprocedural ONLY) 10,000 units STK- MED ONCE .ROUTE Last administered on 02/09/17 15:10; Start 02/09/17 at 13:51; Stop 02/09/17 at 13:52; Status DC Sodium Chloride (NS Flush) UNSCH PRN IVF SEE PROTOCOL; Start 02/09/17 at 15:30 Heparin Sodium (Porcine) UNSCH PRN IV FLUSH SEE PROTOCOL; Start 02/09/17 at 15 :30 Sodium Chloride (NS 1000 ml Inj) 1,000 ml @ 0 mls/hr Q0M PRN IV For Prime & Rinse Back Last administered on 02/10/17 10:27; Start 02/09/17 at 15:39 Heparin Sodium (Porcine) 8000 units 8,000 units UNSCH PRN IVF WITH DIALYSIS; Start 02/09/17 at 15:45 Sodium Chloride 1,000 ml @ 200 mls/hr Q5H PRN IV WITH DIALYSIS; Start 02/09/17 at 15:39 Sodium Chloride (NS 1000 ml Inj) 1,000 ml @ 0 mls/hr Q0M PRN IV WITH DIALYSIS; Start 02/09/17 at 15:39 Mannitol (Mannitol Inj) 12.5 gm UNSCH PRN IV WITH DIALYSIS; Start 02/09/17 at 15:45 Albumin Human (Albumin 25% Inj) 25 gm UNSCH PRN IV WITH DIALYSIS Last administered on 02/10/17 10:02; Start 02/09/17 at 15:45 Sodium Chloride (NS Flush) 5 ml UNSCH PRN IV FLUSH WITH DIALYSIS; Start at 15:45 Heparin Sodium (Porcine) (Heparin Inj) UNSCH PRN .XX WITH DIALYSIS Last administered on 02/12/17 11:49; Start 02/09/17 at 15:45 Gentamicin Sulfate (Gentamicin (Dialysis) Inj) 20 mg UNSCH PRN IV WITH DIALYSIS Last administered on 02/12/17 11:49; Start 02/09/17 at 15:45 Ondansetron HCl (Zofran Inj) 4 mg UNSCH PRN IV WITH DIALYSIS Last administered on 02/10/17 09:36; Start 02/09/17 at 15:45 Acetaminophen (Tylenol) 650 mg UNSCH PRN PO for headach, pain, temp > 101F; Start 02/09/17 at 15:45 Diphenhydramine HCl (Benadryl) 25 mg UNSCH PRN PO for hives/itching/ anaphylaxis Last administered on 02/12/17 06:15; Start 02/09/17 at 15:45 Nitroglycerin (Nitrostat Sl) 0.4 mg UNSCH PRN SL CHEST PAIN; Start 02/09/17 at 15:45 Clonidine (Catapres) 0.1 mg UNSCH PRN PO for BP > 180/100 X 2 readings; Start 02/09/17 at 15:45 Gelatin 1 foam 1 foam UNSCH PRN TOP SEE LABEL COMMENTS; Start 02/09/17 at 15:45 Piperacillin Sod/ Tazobactam Sod (Zosyn 2.25 Gm Premix) 50 ml @ 100 mls/hr Q12H IV Last administered on 02/12/17 06:14; Start 02/09/17 at 18:00 Melatonin (Melatonin) 5 mg HS PRN PO SLEEP Last administered on 02/10/17 22:08 ; Start 02/10/17 at 17:15 Epoetin Moreno [address]4586 units 20,000 units MoWeFr SQ ; Start 02/13/17 at 14:00; Status Cancel Iron Sucrose/ Sodium Chloride (Venofer Inj/NS Inj) 105 ml @ 105 mls/hr DAILY IV ; Start 02/12/17 at 12:00; Stop 02/14/17 at 09:59 Epoetin Moreno (Epogen Inj) 20,000 units UNSCH PRN IV WITH DIALYSIS Last administered on 02/12/17t 11:50; Start 02/12/17 at 10:15 A/P Assessment and Plan A/P Acute cholecystitis - Status post cholecystostomy tube placement- - continue Zosyn -pain control - Further management per general surgery Acute on chronic kidney injury - Management per nephrology-Bumex infusion, sodium bicarbonate infusion discontinued 02/09 - 02/09 for Vas-Cath replacement- HD initiated. Hypotension-resolved -- likely secondary to sepsis and renal failure -- midodrine 10mg po tid Metabolic acidosis - Due to kidney injury - Treated underlying condition Diabetes mellitus - Levemir and insulin sliding scale Chronic pain syndrome Insomnia -Melatonin 5 mg by mouth daily at bedtime PRN for insomnia - Maintain sleep hygiene, to avoid a ICU delirium Mild protein calorie Malnutrition -Nutrition consult -Calorie count -Renal diet anemia of chronic disease hematology evaluation appreciated and started on Epogen and IV iron. will monitor H/H. DVT prophylaxis - Teds SCDs continue PT. Leesa Holguin MD Feb 12, 2017 13:06
[2017-02-12] MEDS: IRON SUCROSE INJ 100 MG in SODIUM CHLORIDE 0.9% INJ 100 ML IV SCH (14:40)
[2017-02-12] MEDS ORDERED: FUROSEMIDE 40 MG/4 ML VIAL IV PUSH ONE (20:45)
--- NOTE | 2017-02-12 20:53 | RADRPT ---
EXAM DATE/TIME: 02/12/2017 20:36 [facility] COMPARISON: CHEST SINGLE AP, February 07, 2017, 16:18. INDICATIONS : Congestion MEDICAL HISTORY : HTN, CHF, CKD Stage IV, Chronic anemia and thalassemia, Cholecystitis, HLD, SURGICAL HISTORY : Cholecystectomy. ENCOUNTER: Subsequent ACUITY: 1 week PAIN SCORE: 0/10 LOCATION: chest FINDINGS: A single view of the chest demonstrates right central line in superior vena cava. Cardiomegaly. Bilat eral effusions and basilar airspace disease. No pneumothorax. CONCLUSION: 1. Right central line in superior vena cava. Cardiomegaly. Basilar airspace disease and effusions sli ghtly increased from February 07. Dmitriy Ramirez MD on February 12, 2017 at 20:50 Board Certified Radiologist. This report was verified electronically.
[2017-02-12 21:42] LABS: POTASSIUM 4.5 MEQ/L (3.5-5.1)
[2017-02-12 21:44] LABS: AUTOMATED NEUTROPHIL # 6.4 TH/MM3 (1.8-7.7); BASOPHIL % 0.4 % (0.0-2.0); EOSINOPHIL # 0.3 TH/MM3 (0-0.4); EOSINOPHIL % 3.7 % (0.0-4.0); HEMATOCRIT 24.7 % (35.0-46.0); HEMO FLAGS AUTO DIFF; LYMPH % 9.1 % (9.0-44.0); LYMPHOCYTE # 0.8 TH/MM3 (1.0-4.8); MEAN CORPUSCULAR HEMOGLOBIN 20.4 PG (27.0-34.0); MEAN CORPUSCULAR HGB CONC 30.9 % (32.0-36.0); MONO % 9.5 % (0.0-8.0); NEUT % 77.3 % (16.0-70.0); PLATELET COUNT 251 TH/MM3 (150-450); RED BLOOD COUNT 3.74 MIL/MM3 (4.00-5.30); RED CELL DISTRIBUTION WIDTH 15.9 % (11.6-17.2); WHITE BLOOD COUNT 8.3 TH/MM3 (4.0-11.0)
[2017-02-12 21:55] LABS: TRANSFERRIN IRON PROFILE 74 MG/DL (200-360)
[2017-02-12 22:43] LABS: OVALOCYTES 1+ (NORMAL); SCAN/DIFF AUTO DIFF CONFIRMED
[2017-02-13] VITALS (10 sets, daily range): BP systolic 126–169; BP diastolic 56–80; PULSE 82–96; RESP 16–19; TEMP 97.1–98.4; O2SAT 90–98
[2017-02-13] MEDS: CHLORHEXIDINE GLUCONATE 2 % 1 PACK (2 CLOTHS)(taper/protocol) TOPICAL SCH (04:00)
[2017-02-13] MEDS: MORPHINE SULFATE 4 MG/ML INJ IV PRN ×3 (04:08→23:29)
[2017-02-13] MEDS: PIPERACIL-TAZO 2.25 GM PREMIX 50 ML IV SCH ×2 (06:01→18:19)
[2017-02-13] MEDS: MIDODRINE 5 MG TAB PO SCH ×3 (06:01→18:18)
[2017-02-13] MEDS: INSULIN ASPART SUPPLEMENTAL SCALE SQ SCH ×4 (06:04→20:58)
[2017-02-13] MEDS: DOCUSATE SODIUM 50 MG/SENNA 8.6 MG TAB PO SCH ×2 (09:00→20:55)
[2017-02-13] MEDS: INSULIN DETEMIR 100 UNITS/ML VIAL SQ SCH (09:00)
[2017-02-13] MEDS: IRON SUCROSE INJ 100 MG in SODIUM CHLORIDE 0.9% INJ 100 ML IV SCH (09:25)
[2017-02-13] MEDS: SODIUM CHLORIDE 0.9% FLUSH 10 ML FLUSH IV FLUSH SCH ×2 (09:26→20:55)
[2017-02-13] MEDS: CARVEDILOL 3.125 MG TAB PO SCH ×2 (09:27→20:55)
--- NOTE | 2017-02-13 11:09 | HHI.PR ---
Subjective Remarks in no acute distress. pain is fairly controlled. no fever. d/w the RN and no acute issues over night. Objective Vitals Vital Signs Date Time Temp Pulse Resp B/P Pulse Ox O2 Delivery O2 Flow Rate FiO2 02/13/17 08:00 97.9 96 19 169/80 90 02/13/17 05:05 Nasal Cannula 6.00 02/13/17 04:00 98.4 87 16 144/66 93 02/13/17 03:18 Nasal Cannula 6.00 02/13/17 00:00 98.2 88 18 153/67 94 02/12/17 21:25 92 Nasal Cannula 6.00 02/12/17 21:15 85 Nasal Cannula 6.00 02/12/17 20:19 87 Nasal Cannula 4.00 02/12/17 20:00 98.2 93 16 135/63 90 02/12/17 19:40 96 Nasal Cannula 6.00 02/12/17 17:33 86 02/12/17 16:30 98.2 80 20 152/67 91 02/12/17 16:01 Nasal Cannula 3.00 02/12/17 12:01 Nasal Cannula 3.00 I/O 02/12/17 02/12/17 02/12/17 02/13/17 02/13/17 02/13/17 07:00 15:00 23:00 07:00 15:00 23:00 Intake Total 50 ml Output Total 100 ml 1500 ml 200 ml 150 ml Balance -100 ml -1500 ml -200 ml -100 ml IV Total 50 ml Output Urine Total 100 ml 200 ml 150 ml Hemodialysis 1500 ml Bladder Scan Volume Amount 100 ml Result Diagram: 02/12/17211302/12/171941 Imaging Last Impressions Chest X-Ray 02/12/17 0000 Signed Impressions: Service Date/Time: January 20:36 - CONCLUSION: 1. Right central line in superior vena cava. Cardiomegaly. Basilar airspace disease and effusions slightly increased from February 07. Dmitriy Ramirez MD Catheter Placement X-Ray 02/09/17 0000 Signed Impressions: Service Date/Time: Thursday, February 09, 2017 15:10 - CONCLUSION: Uncomplicated line placement as above. Kolby Hughes Jr., MD Abdomen X-Ray 02/07/17 0000 Signed Impressions: Service Date/Time: Tuesday, February 07, 2017 16:22 - CONCLUSION: 1. No acute abnormalities. 2. Cholecystostomy tube. Maikel Peña MD Percutaneous Cholangiogram 02/06/17 0000 Signed Impressions: Service Date/Time: Monday, February 06, 2017 15:15 - CONCLUSION: Uncomplicated percutaneous cholecystostomy as above. Thick inspissated bile was noted. The drainage is fairly low given the size of the gallbladder and therefore a CT will be performed to confirm appropriate positioning of the cholecystostomy tube. Kolby Hughes Jr., MD Abdomen CT 02/06/17 0000 Signed Impressions: Service Date/Time: Monday, February 06, 2017 16:21 - CONCLUSION: Interval cholecystostomy tube placement. Worsening parenchymal disease in the lung bases. Ney Lutz MD Abdomen/Pelvis CT 02/05/17 1656 Signed Impressions: Service Date/Time: January 18:15 - CONCLUSION: 1. Gallbladder is abnormal. It is markedly distended with gallbladder wall thickening and mild induration of the pericholecystic fat concerning for cholecystitis. High attenuation within the gallbladder lumen may be related to sludge or clot. 2. Left basilar atelectasis and tiny left effusion. Juan De Souza MD Gall Bladder Ultrasound 02/05/17 0000 Signed Impressions: Service Date/Time: January 20:39 - CONCLUSION: 1. The gallbladder is abnormal with findings corresponding to the findings on the CT exam. There is wall thickening, marked distention and the lumen is occupied by echogenic shadowing material which may reflect sludge or hemorrhage. A few stones are suspected. Juan De Souza MD Objective Remarks GENERAL: in no apparent distress. CARDIOVASCULAR: Regular rate and regular rhythm without murmurs, gallops, or rubs. RESPIRATORY: Clear to auscultation. Breath sounds equal bilaterally. No wheezes , rales, or rhonchi. GASTROINTESTINAL: Abdomen soft, generalized tenderness, nondistended. Normal, active bowel sounds MUSCULOSKELETAL: Extremities without clubbing, cyanosis, or edema. NEURO: Alert & Oriented x4 to person, place, time, situation. Moves all ext x4 Procedures Vas-Cath placement per IR cholecystostomy tube placement Medications and IVs Current Medications Ondansetron HCl (Zofran Inj) 4 mg ONCE ONCE IV PUSH Last administered on 16:37; Start 02/05/17 at 16:30; Stop 02/05/17 at 16:31; Status DC Morphine Sulfate 4 mg 4 mg ONCE ONCE IV PUSH Last administered on 02/05/17 17 :10; Start 02/05/17 at 17:00; Stop 02/05/17 at 17:01; Status DC Sodium Chloride 500 ml @ 500 mls/hr BOLUS ONCE IV Last administered on 17:10; Start 02/05/17 at 17:00; Stop 02/05/17 at 17:59; Status DC Piperacillin Sod/ Tazobactam Sod (Zosyn 3.375 Gm Premix) 50 ml @ 100 mls/hr ONCE ONCE IV Last administered on 02/05/17 18:52; Start 02/05/17 at 18:45; Stop 02/05/17 at 19:14; Status DC Morphine Sulfate (Morphine Inj) 2 mg ONCE ONCE IV PUSH Last administered on 19:00; Start 02/05/17 at 19:00; Stop 02/05/17 at 19:01; Status DC Dextrose (D50w (Vial) Inj) 50 ml UNSCH PRN IV HYPOGLYCEMIA-SEE COMMENTS; Start 02/05/17 at 19:30 Glucagon (Glucagon Inj) 1 mg UNSCH PRN OTHER HYPOGLYCEMIA-SEE COMMENTS; Start 02/05/17 at 19:30 Insulin Aspart 1 1 ACHS SLIDING SCALE SQ Last administered on 02/13/17 06:04 ; Start 02/05/17 at 21:00 Piperacillin Sod/ Tazobactam Sod 50 ml @ 100 mls/hr Q6H IV Last administered on 02/09/17 06:01; Start 02/06/17 at 00:00; Stop 02/09/17 at 16:32; Status DC Sodium Chloride (NS 1000 ml Inj) 1,000 ml @ 50 mls/hr Q20H IV Last administered on 02/06/17 04:19; Start 02/05/17 at 19:16; Status Hold Sodium Chloride (NS Flush) 2 ml UNSCH PRN IV FLUSH FLUSH AFTER USING IV ACCESS ; Start 02/05/17 at 19:30 Sodium Chloride (NS Flush) 2 ml BID IV FLUSH Last administered on 02/13/17 09: 26; Start 02/05/17 at 21:00 Ondansetron HCl (Zofran Inj) 4 mg Q6H PRN IVP NAUSEA OR VOMITING Last administered on 02/12/17 03:32; Start 02/05/17 at 19:30 Acetaminophen (Tylenol) 650 mg Q6H PRN PO FEVER; Start 02/05/17 at 19:30 Morphine Sulfate (Morphine Inj) 2 mg Q3H PRN IV Pain 6-10 Last administered on 02/06/17 07:59; Start 02/05/17 at 19:30; Stop 02/06/17 at 11:21; Status DC Oxycodone HCl (Roxicodone) 5 mg Q4H PRN PO PAIN SCALE 3 TO 5 Last administered on 02/12/17 22:10; Start 02/05/17 at 19:30 Senna/Docusate Sodium (Terese-Colace) 1 tab BID PO Last administered on 09:00; Start 02/05/17 at 21:00 Magnesium Hydroxide (Milk Of Magnesia Liq) 30 ml Q12H PRN PO MILD - MODERATE CONSTIPATION Last administered on 02/06/17 07:59; Start 02/05/17 at 19:30 Sennosides (Senokot) 17.2 mg Q12H PRN PO MODERATE - SEVERE CONSTIPATION; Start 02/05/17 at 19:30 Bisacodyl (Dulcolax Supp) 10 mg DAILY PRN RECTAL SEVERE CONSTIPATION; Start at 19:30 Lactulose (Lactulose Liq) 30 ml DAILY PRN PO SEVERE CONSITIPATION Last administered on 02/06/17 17:46; Start 02/05/17 at 19:30 Amlodipine Besylate (Norvasc) 10 mg DAILY PO Last administered on 02/06/17 07: 57; Start 02/06/17 at 09:00; Status Hold Carvedilol (Coreg) 3.125 mg Q12HR PO Last administered on 02/13/17 09:27; Start 02/05/17 at 21:00 Tizanidine HCl (Zanaflex) 4 mg TID PO Last administered on 02/13/17 09:27; Start 02/06/17 at 09:00 Insulin Detemir (Levemir Inj) 20 units DAILY SQ ; Start 02/06/17 at 09:00; Stop 02/06/17 at 09:00; Status DC Insulin Detemir (Levemir Inj) 10 units DAILY SQ Last administered on 02/13/17 09:00; Start 02/06/17 at 09:00 Promethazine HCl (Phenergan) 25 mg ONCE ONCE PO Last administered on 07:04; Start 02/06/17 at 07:00; Stop 02/06/17 at 07:01; Status DC Furosemide (Lasix Inj) 40 mg ONCE ONCE IV PUSH Last administered on 02/06/17 12:47; Start 02/06/17 at 11:00; Stop 02/06/17 at 11:01; Status DC Sodium Bicarbonate (Sodium Bicarbonate 8.4% Inj) 50 meq ONCE ONCE IV PUSH Last administered on 02/06/17 12:48; Start 02/06/17 at 12:00; Stop 02/06/17 at 12:01; Status DC Morphine Sulfate (Morphine Inj) 1 mg Q4HR PRN IV Pain 6-10 Last administered on 02/13/17 08:35; Start 02/06/17 at 12:00 Fentanyl Citrate (fentaNYL INJ) 250 mcg STK-MED ONCE .ROUTE Last administered on 02/06/17 15:18; Start 02/06/17 at 15:18; Stop 02/06/17 at 15:19; Status DC Iohexol (Omnipaque 350 Inj) 8 ml STK-MED ONCE .XX Last administered on 16:50; Start 02/06/17 at 16:50; Stop 02/06/17 at 16:51; Status DC Ketorolac Tromethamine 15 mg 15 mg ONCE ONCE IV PUSH ; Start 02/07/17 at 04:45 ; Stop 02/07/17 at 04:46; Status DC Sodium Chloride 1,000 ml @ 84 mls/hr [id number] IV Last administered on 15:00; Start 02/07/17 at 15:00; Stop 02/07/17 at 19:40; Status DC Sodium Bicarbonate 150 meq/Dextrose 1,150 ml @ 150 mls/hr Q7H40M IV Last administered on 02/09/17 13:14; Start 02/07/17 at 19:45; Stop 02/09/17 at 15:39 ; Status DC Bumetanide (Bumex Inj) 100 ml @ 4 mls/hr CONTINUOUS IV Last administered on 13:09; Start 02/08/17 at 13:00; Stop 02/09/17 at 15:39; Status DC Midodrine (Proamatine) 10 mg TID@07,12,17 PO Last administered on 02/13/17 06: 01; Start 02/08/17 at 17:00 Miscellaneous Information Patient in critical care unit? Ass... [id number] .XX ; Start 02/08/17 at 23:00 Chlorhexidine Gluconate (Chlorhexidine 2% Cloth) 3 pack DAILY@04 TOPICAL Last administered on 02/11/17 04:34; Start 02/09/17 at 04:00; Stop 02/13/17 at 04:01 ; Status DC Chlorhexidine Gluconate (Chlorhexidine 2% Cloth) 3 pack UNSCH PRN TOPICAL HYGIENIC CARE; Start 02/08/17 at 23:00; Stop 02/13/17 at 22:56 Heparin Sodium (Porcine) (*HEPARIN INJ Periprocedural ONLY) 10,000 units STK- MED ONCE .ROUTE Last administered on 02/09/17 15:10; Start 02/09/17 at 13:51; Stop 02/09/17 at 13:52; Status DC Sodium Chloride (NS Flush) UNSCH PRN IVF SEE PROTOCOL; Start 02/09/17 at 15:30 Heparin Sodium (Porcine) UNSCH PRN IV FLUSH SEE PROTOCOL; Start 02/09/17 at 15 :30 Sodium Chloride (NS 1000 ml Inj) 1,000 ml @ 0 mls/hr Q0M PRN IV For Prime & Rinse Back Last administered on 02/10/17 10:27; Start 02/09/17 at 15:39 Heparin Sodium (Porcine) 8000 units 8,000 units UNSCH PRN IVF WITH DIALYSIS; Start 02/09/17 at 15:45 Sodium Chloride 1,000 ml @ 200 mls/hr Q5H PRN IV WITH DIALYSIS; Start 02/09/17 at 15:39 Sodium Chloride (NS 1000 ml Inj) 1,000 ml @ 0 mls/hr Q0M PRN IV WITH DIALYSIS; Start 02/09/17 at 15:39 Mannitol (Mannitol Inj) 12.5 gm UNSCH PRN IV WITH DIALYSIS; Start 02/09/17 at 15:45 Albumin Human (Albumin 25% Inj) 25 gm UNSCH PRN IV WITH DIALYSIS Last administered on 02/10/17 10:02; Start 02/09/17 at 15:45 Sodium Chloride (NS Flush) 5 ml UNSCH PRN IV FLUSH WITH DIALYSIS; Start at 15:45 Heparin Sodium (Porcine) (Heparin Inj) UNSCH PRN .XX WITH DIALYSIS Last administered on 02/12/17 11:49; Start 02/09/17 at 15:45 Gentamicin Sulfate (Gentamicin (Dialysis) Inj) 20 mg UNSCH PRN IV WITH DIALYSIS Last administered on 02/12/17 11:49; Start 02/09/17 at 15:45 Ondansetron HCl (Zofran Inj) 4 mg UNSCH PRN IV WITH DIALYSIS Last administered on 02/10/17 09:36; Start 02/09/17 at 15:45 Acetaminophen (Tylenol) 650 mg UNSCH PRN PO for headach, pain, temp > 101F; Start 02/09/17 at 15:45 Diphenhydramine HCl (Benadryl) 25 mg UNSCH PRN PO for hives/itching/ anaphylaxis Last administered on 02/12/17 06:15; Start 02/09/17 at 15:45 Nitroglycerin (Nitrostat Sl) 0.4 mg UNSCH PRN SL CHEST PAIN; Start 02/09/17 at 15:45 Clonidine (Catapres) 0.1 mg UNSCH PRN PO for BP > 180/100 X 2 readings; Start 02/09/17 at 15:45 Gelatin 1 foam 1 foam UNSCH PRN TOP SEE LABEL COMMENTS; Start 02/09/17 at 15:45 Piperacillin Sod/ Tazobactam Sod (Zosyn 2.25 Gm Premix) 50 ml @ 100 mls/hr Q12H IV Last administered on 02/13/17 06:01; Start 02/09/17 at 18:00 Melatonin (Melatonin) 5 mg HS PRN PO SLEEP Last administered on 02/10/17 22:08 ; Start 02/10/17 at 17:15 Epoetin Moreno 74104 units 20,000 units MoWeFr SQ ; Start 02/13/17 at 14:00; Status Cancel Iron Sucrose/ Sodium Chloride (Venofer Inj/NS Inj) 105 ml @ 105 mls/hr DAILY IV Last administered on 02/13/17 09:25; Start 02/12/17 at 12:00; Stop at 09:59 Epoetin Moreno (Epogen Inj) 20,000 units UNSCH PRN IV WITH DIALYSIS Last administered on 02/12/17 11:50; Start 02/12/17 at 10:15 Furosemide (Lasix Inj) 60 mg ONCE ONCE IV PUSH Last administered on 02/12/17 20:51; Start 02/12/17 at 20:45; Stop 02/12/17 at 20:48; Status DC A/P Assessment and Plan A/P Acute cholecystitis - Status post cholecystostomy tube placement- - continue Zosyn -pain control - Further management per general surgery Acute on chronic kidney injury - Management per nephrology-Bumex infusion, sodium bicarbonate infusion discontinued 02/09 - 02/09 for Vas-Cath replacement- HD initiated. Hypotension-resolved -- likely secondary to sepsis and renal failure -- midodrine 10mg po tid Metabolic acidosis - Due to kidney injury - Treated underlying condition Diabetes mellitus - Levemir and insulin sliding scale Chronic pain syndrome Insomnia -Melatonin 5 mg by mouth daily at bedtime PRN for insomnia -continue pain control. Mild protein calorie Malnutrition -Nutrition consult -Calorie count in process. anemia of chronic disease hematology evaluation appreciated and started on Epogen and IV iron. will monitor H/H. DVT prophylaxis - Teds SCDs continue PT. Leesa Holguin MD Feb 13, 2017 11:09
[2017-02-13] MEDS ORDERED: RESP: ALBUTEROL 1.25 MG/3 ML NEB (PRN) NEB (11:15)
[2017-02-13] MEDS ORDERED: EPOETIN ALFA 20,000 UNITS/ML VIAL SQ SCH (14:00)
--- NOTE | 2017-02-13 16:23 | HHI.PR ---
Subjective Subjective Notes Up to chair No complaints Objective Vitals/I&O Vital Signs Date Time Temp Pulse Resp B/P Pulse Ox O2 Delivery O2 Flow Rate FiO2 02/13/17 15:59 98.3 84 18 127/69 96 02/13/17 11:26 Nasal Cannula 6.00 Labs Laboratory Tests Test 02/12/17 02/12/17 19:42 21:14 Sodium Level 138 Potassium Level 4.5 Chloride Level 98 Carbon Dioxide Level 30.0 Anion Gap 10 Blood Urea Nitrogen 37 Creatinine 4.79 Estimat Glomerular Filtration 11 Rate Random Glucose 311 Calcium Level 8.1 Iron Level 117 Total Iron Binding Capacity 104 Percent Iron Saturation White Blood Count 8.3 Red Blood Count 3.74 Hemoglobin 7.6 Hematocrit 24.7 Mean Corpuscular Volume 66.0 Mean Corpuscular Hemoglobin 20.4 Mean Corpuscular Hemoglobin 30.9 Concent Red Cell Distribution Width 15.9 Platelet Count 251 Mean Platelet Volume 8.0 Neutrophils (%) (Auto) 77.3 Lymphocytes (%) (Auto) 9.1 Monocytes (%) (Auto) 9.5 Eosinophils (%) (Auto) 3.7 Basophils (%) (Auto) 0.4 Neutrophils # (Auto) 6.4 Lymphocytes # (Auto) 0.8 Monocytes # (Auto) 0.8 Eosinophils # (Auto) 0.3 Basophils # (Auto) 0.0 CBC Comment AUTO DIFF Differential Comment AUTO DIFF CONFIRMED Ovalocytes 1+ Date/Time Procedure Status Source Growth 02/08/17 22:22 Gram Stain Ordered Sputum Expectorated Sputum Pending 02/08/17 22:22 Sputum Culture Ordered Sputum Expectorated Sputum Pending Radiology Last Impressions Chest X-Ray 02/07/17 0000 Signed Impressions: Service Date/Time: Tuesday, February 07, 2017 16:18 - CONCLUSION: Diminished lung volumes and probable bibasilar atelectasis. Maikel Peña MD Abdomen X-Ray 02/07/17 0000 Signed Impressions: Service Date/Time: Tuesday, February 07, 2017 16:22 - CONCLUSION: 1. No acute abnormalities. 2. Cholecystostomy tube. Maikel Peña MD Abdomen CT 02/06/17 0000 Signed Impressions: Service Date/Time: Monday, February 06, 2017 16:21 - CONCLUSION: Interval cholecystostomy tube placement. Worsening parenchymal disease in the lung bases. Ney Lutz MD Abdomen/Pelvis CT 02/05/17 1656 Signed Impressions: Service Date/Time: January 18:15 - CONCLUSION: 1. Gallbladder is abnormal. It is markedly distended with gallbladder wall thickening and mild induration of the pericholecystic fat concerning for cholecystitis. High attenuation within the gallbladder lumen may be related to sludge or clot. 2. Left basilar atelectasis and tiny left effusion. Juan De Souza MD Gall Bladder Ultrasound 02/05/17 0000 Signed Impressions: Service Date/Time: January 20:39 - CONCLUSION: 1. The gallbladder is abnormal with findings corresponding to the findings on the CT exam. There is wall thickening, marked distention and the lumen is occupied by echogenic shadowing material which may reflect sludge or hemorrhage. A few stones are suspected. Juan De Souza MD Cardiovascular: Regular Lungs: Clear Abdomen: Other (cathy tube in place; no complications ) Extremities: No edema Narrative Exam [facility] A/P Problem List: (1) Cholecystostomy care (2) Gallstones (3) Cholecystitis (4) Anemia (5) Acute kidney failure (6) Stage 4 chronic kidney disease (7) Diabetes mellitus Assessment and Plan 66 year old female with multiple comorbidities; acute cholecystitis -S/p IR placement of a cholecystostomy tube -Continue Zosyn; can transition to PO antibiotics from GS standpoint -Diet as tolerated -Now on HD -Patient remains a poor surgical candidate -GS will sign off; follow up in office after DC Attending Statement patient seen at bedside s/p ir drain no further surgical issues will s/o reconsult if problems with drain Attestation The exam, history, and the medical decision-making described in the above note were completed with the assistance of the mid-level provider. I reviewed and agree with the findings presented. I attest that I had a [id number] encounter with the patient on the same day, and personally performed and documented my assessment and findings in the medical record. Problem Qualifiers (1) Anemia: Francine Renae Feb 13, 2017 16:23 Freddy Serrato MD Feb 20, 2017 15:38
--- NOTE | 2017-02-13 18:50 | HHI.NPPN ---
Subjective History of Present Illness 66-year-old female with a past medical history of hypertension, diabetes mellitus, chronic kidney disease, anemia and chronic back pain, who was admitted because of abdominal pain, nausea and vomiting. I was called to see the patient because of elevated BUN and creatinine. The patient has known history of chronic kidney disease and she had acute kidney injury. Additional Remarks Patient is alert, sitting on chair, no SOB, with nasal cannula, not eating well. Objective Data Data 02/12/17 02/13/17 19:00 07:00 Intake Total 50 ml Output Total 1500 ml 350 ml Balance -1500 ml -300 ml IV Total 50 ml Output Urine Total 350 ml Hemodialysis 1500 ml Vital Signs Date Time Temp Pulse Resp B/P Pulse Ox O2 Delivery O2 Flow Rate FiO2 02/13/17 15:59 98.3 84 18 127/69 96 02/13/17 12:00 97.1 89 18 126/56 96 02/13/17 11:26 93 Nasal Cannula 6.00 02/13/17 08:00 97.9 96 19 169/80 90 02/13/17 05:05 Nasal Cannula 6.00 02/13/17 04:00 98.4 87 16 144/66 93 02/13/17 03:18 Nasal Cannula 6.00 02/13/17 00:00 98.2 88 18 153/67 94 02/12/17 21:25 92 Nasal Cannula 6.00 02/12/17 21:15 85 Nasal Cannula 6.00 02/12/17 20:19 87 Nasal Cannula 4.00 02/12/17 20:00 98.2 93 16 135/63 90 02/12/17 19:40 96 Nasal Cannula 6.00 -: 02/12/174 02/12/172 Physical Exam General Appearance: Anxious Eyes Eye Exam: Pupils Equal Throat Throat Exam: Oral Mucosa [place] & Moist Neck Neck Exam: Neck Supple Pulmonary Resp Exam: Breath Sounds Equal, No Distress, Rhonchi, Decreased Bases Cardiology CV Exam: Regular, Normal Sinus Rhythm Gastrointestinal/Abdomen GI Exam: Soft, Bowel Sounds Present, Distended Extremeties Extremities Exam: Trace Edema Neurologic Neuro Exam: Alert, Awake, Oriented Psychiatric Psych Exam: Appropriate Responses Assessment/Plan Assessment Summary: GRADY/Acute Renal Failure, Hypotension, CKD Stage IV Problem List: (1) Diabetes mellitus (2) CHF (congestive heart failure) (3) Cholecystitis (4) Gallstones (5) Elevated LFTs (6) Anemia (7) Stage 4 chronic kidney disease (8) Acute kidney failure Plan BP is stable. Creatinine still elevated. Most likely has ATN due to hypotension causing GRADY. Continue antibiotics. Urine out put is slightly better. Add Epogen with HD. Watch for renal recovery. Creatinine is still elevated. HD will be in AM. Problem Qualifiers (1) Anemia: Svitlana Cook MD Feb 13, 2017 18:50
[2017-02-14] VITALS (10 sets, daily range): BP systolic 128–151; BP diastolic 63–69; PULSE 80–98; RESP 17–24; TEMP 97.4–100.3; O2SAT 90–95
[2017-02-14] MEDS: MORPHINE SULFATE 4 MG/ML INJ IV PRN ×2 (03:44→09:33)
[2017-02-14] MEDS: PIPERACIL-TAZO 2.25 GM PREMIX 50 ML IV SCH ×2 (05:02→18:00)
[2017-02-14] MEDS: MIDODRINE 5 MG TAB PO SCH ×3 (06:42→17:12)
[2017-02-14] MEDS: INSULIN ASPART SUPPLEMENTAL SCALE SQ SCH ×3 (06:47→21:00)
[2017-02-14] MEDS: SODIUM CHLORIDE 0.9% FLUSH 10 ML FLUSH IV FLUSH SCH ×2 (09:00→21:00)
[2017-02-14] MEDS: DOCUSATE SODIUM 50 MG/SENNA 8.6 MG TAB PO SCH ×2 (09:22→21:36)
[2017-02-14] MEDS: CARVEDILOL 3.125 MG TAB PO SCH ×2 (09:25→21:36)
[2017-02-14] MEDS: INSULIN DETEMIR 100 UNITS/ML VIAL SQ SCH (09:29)
[2017-02-14 10:02] LABS: AUTOMATED NEUTROPHIL # 12.2 TH/MM3 (1.8-7.7); BASOPHIL % 0.2 % (0.0-2.0); EOSINOPHIL # 0.5 TH/MM3 (0-0.4); EOSINOPHIL % 3.1 % (0.0-4.0); HEMATOCRIT 27.6 % (35.0-46.0); LYMPHOCYTE # 1.2 TH/MM3 (1.0-4.8); MEAN CELL VOLUME 66.3 FL (80.0-100.0); MEAN CORPUSCULAR HEMOGLOBIN 20.8 PG (27.0-34.0); MEAN CORPUSCULAR HGB CONC 31.3 % (32.0-36.0); MONO % 7.4 % (0.0-8.0); NEUT % 81.3 % (16.0-70.0); PLATELET COUNT 343 TH/MM3 (150-450); RED BLOOD COUNT 4.15 MIL/MM3 (4.00-5.30); RED CELL DISTRIBUTION WIDTH 16.4 % (11.6-17.2)
[2017-02-14 10:03] LABS: HEMO FLAGS AUTO DIFF
[2017-02-14] MEDS: IRON SUCROSE INJ 100 MG in SODIUM CHLORIDE 0.9% INJ 100 ML IV SCH (10:13)
[2017-02-14] MEDS: GENTAMICIN SULFATE (DIALYSIS USE ONLY) 20 MG/2 ML VIAL IV PRN (10:14)
[2017-02-14] MEDS: EPOETIN ALFA 20,000 UNITS/ML VIAL IV PRN (10:14)
[2017-02-14] MEDS: HEPARIN SODIUM - IV 10,000 UNITS/10 ML VIAL PRN (10:14)
[2017-02-14] MEDS: SODIUM CHLORIDE 0.9% FLUSH 10 ML FLUSH IV FLUSH PRN (10:15)
[2017-02-14] MEDS: SODIUM CHLOR 0.9% 1000 ML INJ 1,000 ML IV PRN (10:15)
[2017-02-14] MEDS: ALBUMIN HUMAN 25% 25 GM/100 ML BAGP IV PRN (10:23)
[2017-02-14 10:39] LABS: BANDS 11 % (0-6); EOSINOPHILS 4 % (0-4); MYELOCYTES 3 % (0-0); POLYS (SEG NEUTROPHILS) 66 % (16-70); WBC DIFF SAMPLE 100
[2017-02-14 10:40] LABS: PLATELET ESTIMATE SMEAR NORMAL (NORMAL); PLATELET MORPHOLOGY NORMAL (NORMAL); SCAN/DIFF FINAL DIFF MANUAL; TARGET CELLS 1+ (NORMAL)
--- NOTE | 2017-02-14 11:35 | HHI.NPPN ---
Subjective History of Present Illness 66-year-old female with a past medical history of hypertension, diabetes mellitus, chronic kidney disease, anemia and chronic back pain, who was admitted because of abdominal pain, nausea and vomiting. I was called to see the patient because of elevated BUN and creatinine. The patient has known history of chronic kidney disease and she had acute kidney injury. Additional Remarks Patient is confused Objective Data Data 02/13/17 02/14/17 19:00 07:00 Intake Total 520 ml Output Total 500 ml 585 ml Balance -500 ml -65 ml Intake Oral 520 ml Output Urine Total 500 ml 510 ml Drainage Total 75 ml # Bowel Movements 0 Vital Signs Date Time Temp Pulse Resp B/P Pulse Ox O2 Delivery O2 Flow Rate FiO2 02/14/17 08:06 98.7 88 24 128/69 90 02/14/17 07:42 18 02/14/17 05:24 99.4 02/14/17 04:54 100.3 02/14/17 04:11 18 02/14/17 04:00 100.3 98 17 142/64 93 02/14/17 03:55 92 Nasal Cannula 4.00 02/14/17 00:00 98.9 88 17 133/63 94 02/13/17 21:55 82 02/13/17 21:55 92 Nasal Cannula 4.00 02/13/17 20:31 98 Nasal Cannula 6.00 02/13/17 20:00 97.9 85 17 133/58 92 02/13/17 15:59 98.3 84 18 127/69 96 02/13/17 12:00 97.1 89 18 126/56 96 -: 02/14/17 0912 02/12/17 1942 Physical Exam General Appearance: Anxious Eyes Eye Exam: Pupils Equal Throat Throat Exam: Oral Mucosa [place] & Moist Neck Neck Exam: Neck Supple Pulmonary Resp Exam: Breath Sounds Equal, No Distress, Rhonchi, Decreased Bases Cardiology CV Exam: Regular, Normal Sinus Rhythm Gastrointestinal/Abdomen GI Exam: Soft, Bowel Sounds Present, Distended Extremeties Extremities Exam: Trace Edema Neurologic Neuro Exam: Alert, Awake, Oriented Psychiatric Psych Exam: Appropriate Responses Assessment/Plan Assessment Summary: GRADY/Acute Renal Failure, Hypotension, CKD Stage IV Problem List: (1) Diabetes mellitus (2) CHF (congestive heart failure) (3) Cholecystitis (4) Gallstones (5) Elevated LFTs (6) Anemia (7) Stage 4 chronic kidney disease (8) Acute kidney failure Plan BP is stable. Creatinine still elevated. Most likely has ATN due to hypotension causing GRADY. Continue antibiotics. Urine out put is slightly better. Add Epogen with HD. Watch for renal recovery. Creatinine is still elevated. She is seen during hemodialysis ultrafiltration as 1.5 L She remained confused Problem Qualifiers (1) Anemia: Axel Edmonds MD Feb 14, 2017 11:35
--- NOTE | 2017-02-14 13:45 | HHI.PR ---
Subjective Remarks Pt states that she feels tired. denies any CP/SOB/N/V. is not very hungry. RN warming up her food for her. Complains of some back pain. Tells me she is passing flatus and had a BM recently but cannot remember exactly when Objective Vitals Vital Signs Date Time Temp Pulse Resp B/P Pulse Ox O2 Delivery O2 Flow Rate FiO2 02/14/17 08:06 98.7 88 24 128/69 90 02/14/17 07:42 18 02/14/17 05:24 99.4 02/14/17 04:54 100.3 02/14/17 04:11 18 02/14/17 04:00 100.3 98 17 142/64 93 02/14/17 03:55 92 Nasal Cannula 4.00 02/14/17 00:00 98.9 88 17 133/63 94 02/13/17 21:55 82 02/13/17 21:55 92 Nasal Cannula 4.00 02/13/17 20:31 98 Nasal Cannula 6.00 02/13/17 20:00 97.9 85 17 133/58 92 02/13/17 15:59 98.3 84 18 127/69 96 I/O 02/13/17 02/13/17 02/13/17 02/14/17 02/14/17 02/14/17 07:00 15:00 23:00 07:00 15:00 23:00 Intake Total 50 ml 240 ml 280 ml Output Total 150 ml 500 ml 335 ml 250 ml Balance -100 ml -500 ml -95 ml 30 ml Intake Oral 240 ml 280 ml IV Total 50 ml Output Urine Total 150 ml 500 ml 260 ml 250 ml Drainage Total 75 ml # Bowel Movements 0 Result Diagram: 02/14/17 0912 02/12/17 1942 Imaging Last Impressions Chest X-Ray 02/12/17 0000 Signed Impressions: Service Date/Time: January 20:36 - CONCLUSION: 1. Right central line in superior vena cava. Cardiomegaly. Basilar airspace disease and effusions slightly increased from February 07. Dmitriy Ramirez MD Catheter Placement X-Ray 02/09/17 0000 Signed Impressions: Service Date/Time: Thursday, February 09, 2017 15:10 - CONCLUSION: Uncomplicated line placement as above. Kolby Hughes Jr., MD Abdomen X-Ray 02/07/17 0000 Signed Impressions: Service Date/Time: Tuesday, February 07, 2017 16:22 - CONCLUSION: 1. No acute abnormalities. 2. Cholecystostomy tube. Maikel Peña MD Percutaneous Cholangiogram 02/06/17 0000 Signed Impressions: Service Date/Time: Monday, February 06, 2017 15:15 - CONCLUSION: Uncomplicated percutaneous cholecystostomy as above. Thick inspissated bile was noted. The drainage is fairly low given the size of the gallbladder and therefore a CT will be performed to confirm appropriate positioning of the cholecystostomy tube. Kolby Hughes Jr., MD Abdomen CT 02/06/17 0000 Signed Impressions: Service Date/Time: Monday, February 06, 2017 16:21 - CONCLUSION: Interval cholecystostomy tube placement. Worsening parenchymal disease in the lung bases. Ney Lutz MD Abdomen/Pelvis CT 02/05/17 1656 Signed Impressions: Service Date/Time: January 18:15 - CONCLUSION: 1. Gallbladder is abnormal. It is markedly distended with gallbladder wall thickening and mild induration of the pericholecystic fat concerning for cholecystitis. High attenuation within the gallbladder lumen may be related to sludge or clot. 2. Left basilar atelectasis and tiny left effusion. Juan De Souza MD Gall Bladder Ultrasound 02/05/17 Signed Impressions: Service Date/Time: January 20:39 - CONCLUSION: 1. The gallbladder is abnormal with findings corresponding to the findings on the CT exam. There is wall thickening, marked distention and the lumen is occupied by echogenic shadowing material which may reflect sludge or hemorrhage. A few stones are suspected. Juan De Souza MD Objective Remarks GENERAL: appears tired NECK: trachea midline. CARDIOVASCULAR: Regular rate and regular rhythm with 1-2SEM murmurs RESPIRATORY: Clear to auscultation. Breath sounds equal bilaterally. No wheezes GASTROINTESTINAL: Abdomen soft, nondistended, hypoactive bowel sounds, some discomfort w deep palpation throughout. MUSCULOSKELETAL: Extremities without edema. NEURO: appears tired. answers some questions. Moves all ext x4 Psych: pleasant but is quiet Procedures Vas-Cath placement per IR cholecystostomy tube placement A/P Problem List: (1) Cholecystitis ICD Code: K81.9 Status: Acute (2) Elevated LFTs ICD Code: R79.89 Status: Acute (3) Renal insufficiency ICD Code: N28.9 Status: Acute (4) CHF (congestive heart failure) ICD Code: I50.9 Status: Chronic (5) DM (diabetes mellitus) ICD Code: E11.9 Status: Acute Assessment and Plan Acute cholecystitis - Status post cholecystostomy tube placement by IR - on Zosyn. Tmax was 100.3 overnight. will encourage use of IS q1hr while awake. check u/a and chest x-ray. If she spikes a fever, will get blood cx. Pt also found to have leukocytosis of 15 w 12 bands. Monitor closely. will consult ID for assistance - continue pain control - Per general surgery, she is a poor sx candidate, they have signed off. - abdomen appears distended. Will order KUB Acute on chronic kidney injury - Management per nephrology-Bumex infusion, sodium bicarbonate infusion discontinued 02/09 - 02/09 for Vas-Cath replacement- HD initiated. Hypotension-resolved -- likely secondary to sepsis and renal failure -- midodrine 10mg po tid Metabolic acidosis - Due to kidney injury - Treated underlying condition Diabetes mellitus - Levemir and insulin sliding scale Chronic pain syndrome Insomnia -Melatonin 5 mg by mouth daily at bedtime PRN for insomnia -continue pain control. Mild protein calorie Malnutrition -Nutrition consult -Calorie count was completed yesterday but apparently no meals were being recorded. Will go ahead and re-order calory count as pt has very poor appetite anemia of chronic disease hematology evaluation appreciated and started on Epogen and IV iron. will monitor H/H. DVT prophylaxis - Teds SCDs Discharge Planning calorie count re-ordered. Nursing order in place to assist w this. ID consult in place as pt WBC trending up and pt had a Tmax of 100.3. f/u chest xray, KUB and u/a Kate Godoy MD Feb 14, 2017 13:45
--- NOTE | 2017-02-14 14:56 | RADRPT ---
EXAM DATE/TIME: 02/14/2017 14:15 [facility] COMPARISON: CHEST SINGLE AP, February 12, 2017, 20:36. INDICATIONS : Shortness of breath MEDICAL HISTORY : HTN, CHF, CKD Stage IV, Chronic anemia and thalassemia, SURGICAL HISTORY : None. ENCOUNTER: Subsequent ACUITY: 1 week PAIN SCORE: Non-responsive. LOCATION: Bilateral chest FINDINGS: Small to moderate sized right pleural effusion and small left pleural effusion are noted. Diffuse pu lmonary edema is noted. The heart is stable. CONCLUSION: 1. Small to moderate right pleural effusion and small left pleural effusion. 2. Diffuse pulmonary edema. 3. Cardiomegaly. Sadi Chilel MD on February 14, 2017 at 14:49 Board Certified Radiologist. This report was verified electronically.
--- NOTE | 2017-02-14 15:06 | RADRPT ---
EXAM DATE/TIME: 02/14/2017 14:20 [facility] COMPARISON: CT ABDOMEN W/O CONTRAST, February 06, 2017, 16:21. ABDOMEN KUB ONLY, February 07, 2017, 16:22. INDICATIONS : Abdominal distension MEDICAL HISTORY : HTN, CHF, CKD Stage IV, Chronic anemia and thalassemia, SURGICAL HISTORY : Cholecystostomy drain. ENCOUNTER: Subsequent ACUITY: 1 week PAIN SCORE: Non-responsive. LOCATION: Bilateral abdomen FINDINGS: Cholecystostomy drain is again noted within the right abdomen. There is no bowel obstruction or ileu s. Degenerative changes are noted throughout the lumbar and lower thoracic spine. CONCLUSION: 1. No bowel obstruction or ileus. 2. Degenerative changes involving the lumbar and lower thoracic spine. Sadi Chilel MD on February 14, 2017 at 14:57 Board Certified Radiologist. This report was verified electronically.
[2017-02-14 18:47] LABS: BACTERIA, URINE MANY /hpf; BLOOD, URINE MOD (NEG); COMMENT (UR) CULTURE INDICATED; CULTURE IF INDICATED CULTURE INDICATED; GLUCOSE,URINE NEG (NEG); KETONE, URINE NEG (NEG); MUCUS URINE FEW /lpf (OCC); NITRITE,URINE NEG (NEG); SQUAMOUS EPITHELIAL CELL URINE 42 /hpf (0-5); URINE COLOR YELLOW (YELLW/STRAW)
[2017-02-15] VITALS (9 sets, daily range): BP systolic 128–189; BP diastolic 63–77; PULSE 81–91; RESP 17–22; TEMP 98.6–99.3; O2SAT 86–98
[2017-02-15] MEDS: PIPERACIL-TAZO 2.25 GM PREMIX 50 ML IV SCH ×2 (06:14→17:44)
[2017-02-15] MEDS: MIDODRINE 5 MG TAB PO SCH ×3 (06:18→16:42)
[2017-02-15] MEDS: MORPHINE SULFATE 4 MG/ML INJ IV PRN (06:18)
[2017-02-15] MEDS: INSULIN ASPART SUPPLEMENTAL SCALE SQ SCH ×4 (06:22→21:00)
[2017-02-15 07:35] LABS: AUTOMATED NEUTROPHIL # 10.2 TH/MM3 (1.8-7.7); BASOPHIL % 0.3 % (0.0-2.0); EOSINOPHIL # 0.4 TH/MM3 (0-0.4); EOSINOPHIL % 2.9 % (0.0-4.0); HEMATOCRIT 26.8 % (35.0-46.0); HEMO FLAGS DIFF FINAL; LYMPH % 8.3 % (9.0-44.0); MEAN CELL VOLUME 67.3 FL (80.0-100.0); MEAN CORPUSCULAR HEMOGLOBIN 20.2 PG (27.0-34.0); MEAN CORPUSCULAR HGB CONC 30.1 % (32.0-36.0); MONO % 7.5 % (0.0-8.0); PLATELET COUNT 322 TH/MM3 (150-450); RED BLOOD COUNT 3.98 MIL/MM3 (4.00-5.30); RED CELL DISTRIBUTION WIDTH 16.1 % (11.6-17.2); WHITE BLOOD COUNT 12.6 TH/MM3 (4.0-11.0)
[2017-02-15 07:59] LABS: BICARBONATE 31.1 MEQ/L (21.0-32.0); POTASSIUM 4.6 MEQ/L (3.5-5.1)
[2017-02-15] MEDS: SODIUM CHLORIDE 0.9% FLUSH 10 ML FLUSH IV FLUSH SCH ×2 (09:00→22:05)
[2017-02-15] MEDS: CARVEDILOL 3.125 MG TAB PO SCH ×2 (09:50→21:59)
[2017-02-15] MEDS: DOCUSATE SODIUM 50 MG/SENNA 8.6 MG TAB PO SCH ×2 (09:50→21:59)
[2017-02-15] MEDS: INSULIN DETEMIR 100 UNITS/ML VIAL SQ SCH (09:52)
[2017-02-15] MEDS ORDERED: FUROSEMIDE 40 MG/4 ML VIAL IV PUSH ONE (11:30)
--- NOTE | 2017-02-15 12:05 | HHI.PR ---
Subjective Remarks Pt tells me that she doesn't feel more SOB than usual. Denies any CP/n/v Family at bedside, pt not eating or drinking much Discussed w RN, calorie count most likely will be started tomorrow. Objective Vitals Vital Signs Date Time Temp Pulse Resp B/P Pulse Ox O2 Delivery O2 Flow Rate FiO2 02/15/17 08:06 99.0 88 20 128/71 91 02/15/17 06:35 99.3 89 17 153/71 90 02/15/17 00:00 98.6 81 18 134/63 93 02/14/17 21:30 Nasal Cannula 4.00 02/14/17 20:00 98.5 85 18 151/68 90 02/14/17 19:00 83 02/14/17 16:10 98.3 81 20 146/65 95 02/14/17 13:39 97.4 80 22 136/63 91 I/O 02/14/17 02/14/17 02/14/17 02/15/17 02/15/17 02/15/17 06:59 14:59 22:59 06:59 14:59 22:59 Intake Total 280 ml 360 ml 240 ml Output Total 250 ml 620 ml 200 ml 200 ml Balance 30 ml -260 ml 40 ml -200 ml Intake Oral 280 ml 360 ml 240 ml Output Urine Total 250 ml 120 ml 200 ml 200 ml Hemodialysis 500 ml # Bowel Movements 0 0 Result Diagram: 02/15/17 0611 02/15/17 0611 Imaging Last Impressions Chest X-Ray 02/14/17 0000 Signed Impressions: Service Date/Time: Tuesday, February 14, 2017 14:15 - CONCLUSION: 1. Small to moderate right pleural effusion and small left pleural effusion. 2. Diffuse pulmonary edema. 3. Cardiomegaly. Sadi Chilel MD Abdomen X-Ray 02/14/17 0000 Signed Impressions: Service Date/Time: Tuesday, February 14, 2017 14:20 - CONCLUSION: 1. No bowel obstruction or ileus. 2. Degenerative changes involving the lumbar and lower thoracic spine. Sadi Chilel MD Catheter Placement X-Ray 02/09/17 0000 Signed Impressions: Service Date/Time: Thursday, February 09, 2017 15:10 - CONCLUSION: Uncomplicated line placement as above. Kolby Hughes Jr., MD Percutaneous Cholangiogram 02/06/17 0000 Signed Impressions: Service Date/Time: Monday, February 06, 2017 15:15 - CONCLUSION: Uncomplicated percutaneous cholecystostomy as above. Thick inspissated bile was noted. The drainage is fairly low given the size of the gallbladder and therefore a CT will be performed to confirm appropriate positioning of the cholecystostomy tube. Kolby Hughes Jr., MD Abdomen CT 02/06/17 0000 Signed Impressions: Service Date/Time: Monday, February 06, 2017 16:21 - CONCLUSION: Interval cholecystostomy tube placement. Worsening parenchymal disease in the lung bases. Ney Lutz MD Abdomen/Pelvis CT 02/05/17 1656 Signed Impressions: Service Date/Time: January 18:15 - CONCLUSION: 1. Gallbladder is abnormal. It is markedly distended with gallbladder wall thickening and mild induration of the pericholecystic fat concerning for cholecystitis. High attenuation within the gallbladder lumen may be related to sludge or clot. 2. Left basilar atelectasis and tiny left effusion. Juan De Souza MD Gall Bladder Ultrasound 02/05/17 0000 Signed Impressions: Service Date/Time: January 20:39 - CONCLUSION: 1. The gallbladder is abnormal with findings corresponding to the findings on the CT exam. There is wall thickening, marked distention and the lumen is occupied by echogenic shadowing material which may reflect sludge or hemorrhage. A few stones are suspected. Juan De Souza MD Objective Remarks GENERAL: appears tired NECK: trachea midline. CARDIOVASCULAR: Regular rate and regular rhythm with 1-2SEM murmurs RESPIRATORY: crackles at the bases. decrease breath sounds bilaterally. GASTROINTESTINAL: Abdomen soft, somewhat distended, hypoactive bowel sounds, some discomfort w deep palpation throughout. cholecystostomy tube noted. . NEURO: appears tired. answers some questions. Psych: pleasant but is quiet Procedures Vas-Cath placement per IR cholecystostomy tube placement A/P Problem List: (1) Cholecystitis ICD Code: K81.9 Status: Acute (2) Elevated LFTs ICD Code: R79.89 Status: Acute (3) Renal insufficiency ICD Code: N28.9 Status: Acute (4) CHF (congestive heart failure) ICD Code: I50.9 Status: Chronic (5) DM (diabetes mellitus) ICD Code: E11.9 Status: Acute Assessment and Plan Acute cholecystitis - Status post cholecystostomy tube placement by IR - on Zosyn. no fevers overnight. continue to encourage use of IS q1hr while awake. Repeat u/a concerning for a UTI. continue Abx for now. urine cx pending. Chest x-ray reviewed by me concerning for pulm edema, right pleural effusion, no consolidations. If she spikes a fever, will get blood cx. Pt also found to have leukocytosis of 15 w 12 bands yesterday, did go down to 12.6 this morning. Monitor closely. ID consult in place. - continue pain control - Per general surgery, she is a poor sx candidate, they have signed off. - KUB neg for obstruction or ileus. Pulm Edema/pleural effusion: noted on x-ray. Pt requiring 4 L NC. Will start her on IV lasix 40mg daily for now. monitor pt closely. monitor kidney function as well. check 2D ECHO. Acute on chronic kidney injury - Management per nephrology-Bumex infusion, sodium bicarbonate infusion discontinued 02/09 - 02/09 for Vas-Cath replacement- HD initiated. Hypotension-resolved -- likely secondary to sepsis and renal failure -- midodrine 10mg po tid Metabolic acidosis - Due to kidney injury - Treated underlying condition Diabetes mellitus - Levemir and insulin sliding scale Chronic pain syndrome Insomnia -Melatonin 5 mg by mouth daily at bedtime PRN for insomnia -continue pain control. Mild protein calorie Malnutrition -Nutrition consult -Calorie count was completed on thursday but apparently no meals were being recorded. Will go ahead and re-order calory count as pt has very poor appetite. RN has been notified to make sure meals are documented for this calory count. anemia of chronic disease hematology evaluation appreciated and started on Epogen and IV iron. will monitor H/H. DVT prophylaxis - Teds SCDs Discharge Planning calorie count re-ordered. Nursing order in place to assist w this. ID consult repeat chest x-ray in AM. f/u Kate Webster MD Feb 15, 2017 12:05
--- NOTE | 2017-02-15 16:05 | ECHRPT ---
Indication: sob CONCLUSIONS The left ventricle is not well visualized. There was limited left ventricular wall motion assessment due to poor endocardial visualization. The left ventricular systolic function is severely reduced with an estimated ejection fraction in th e range of 30-35%. The left atrial size is upper limits of normal. The interatrial septum not well visualized. Trace mitral valve regurgitation. No aortic valve regurgitation. No aortic valve stenosis. Mild thickening of the aortic valve leaflets. The tricuspid valve is not well visualized. There is mild tricuspid valve regurgitation. There is estimated moderate pulmonary hypertension present (range 50-60 mmHg). The pulmonary valve is not well visualized. Mild pulmonary valve regurgitation. A left sided pleural effusion is present. BP: / HR: Rhythm: MEASUREMENTS (Male / Female) Normal Values Technical Quality:Poor, Technically difficult stud y 2D ECHO LV Diastolic Diameter PLAX 4.7 cm 4.2 - 5.9 / 3.9 - 5.3 cm LV Systolic Diameter PLAX 4.1 cm IVS Diastolic Thickness 1.0 cm 0.6 - 1.0 / 0.6 - 0.9 cm LVPW Diastolic Thickness 1.0 cm 0.6 - 1.0 / 0.6 - 0.9 cm LV Relative Wall Thickness 0.4 RV Internal Dim ED PLAX 2.1 cm M-MODE Aortic Root Diameter MM 2.7 cm LA Systolic Diameter MM 3.8 cm LA Ao Ratio MM 1.4 AV Cusp Separation MM 1.7 cm DOPPLER Mitral E Point Velocity 117.0 cm/s Mitral A Point Velocity 74.5 cm/s Mitral E to A Ratio 1.6 LV E' Lateral Velocity 8.7 cm/s Mitral E to LV E' Lateral Ratio 13.5 LV E' Septal Velocity 8.8 cm/s Mitral E to LV E' Septal Ratio 13.3 TR Peak Velocity 371.0 cm/s TR Peak Gradient 55.1 mmHg FINDINGS LEFT VENTRICLE The left ventricle is not well visualized. There was limited left ventricular wall motion assessment due to poor endocardial visualization. The left ventricular systolic function is severely reduced with an estimated ejection fraction in th e range of 30-35%. RIGHT VENTRICLE Normal right ventricular size and systolic function. LEFT ATRIUM The left atrial size is upper limits of normal. RIGHT ATRIUM The right atrial size is normal. ATRIAL SEPTUM The interatrial septum not well visualized. AORTA The aortic root and proximal ascending aorta are normal in size on limited imaging. MITRAL VALVE Structurally normal mitral valve. Trace mitral valve regurgitation. AORTIC VALVE Trileaflet aortic valve. No aortic valve regurgitation. No aortic valve stenosis. Mild thickening of the aortic valve leaflets. TRICUSPID VALVE The tricuspid valve is not well visualized. There is mild tricuspid valve regurgitation. There is estimated moderate pulmonary hypertension present (range 50-60 mmHg). PULMONARY VALVE The pulmonary valve is not well visualized. Mild pulmonary valve regurgitation. VESSELS The inferior vena cava is normal in size. PERICARDIUM A left sided pleural effusion is present. No pericardial effusion. Leander Verdugo MD (Electronically Signed) Final Date:15 February 2017 16:04
--- NOTE | 2017-02-15 16:05 | PD.ID.CON ---
History of Present Illness Service ID Consult Requested By Reason for Consult Evaluation and Mment of new fever in pt with Cholecystitis. Primary Care Physician Luz Lopez MD Diagnoses: History of Present Illness Pt is poor historian. Most of the history is by review of medical records. Ms. Rg is a 66 y/o CF with PMHx of hypertension, congestive heart failure with a last Echo 12/17/16 w/ EF 30-35%), chronic kidney disease stage IV, Chronic Anemia and Thalassemia who presented to the ER w/ complaints of abdominal pain, nausea and vomiting since the night prior to admission. Denied fever, chills or diarrhea. On arrival, BP 150/72, HR 97, O2 sat 99% on RA, Temp 99.0. CBC at baseline. Creatinine 2.75, previously 3.04 on 12/29/16. LFTs mildly elevated comparison to previous. UA negative. CT Abd/Pelvis w/ abnormal gallbladder, markedly distended gallbladder with wall thickening and mild induration of pericholecystic fat concerning for cholecystitis, so she underwent cholecystostomy tube placement 02/06/2017. She was admitted postprocedure to medical surgical floor. She was found to be slightly hypotensive and hypothermic with a temperature 96.2. Critical-care medicine was consulted for sepsis. Patient was transferred to ICU seen by [employer] in addition. Started on Bumex gtt and eventually needed to be placed on HD using a HD catheter. Patient was started on empiric antibiotics and continues to be on Zosyn IV. General surgery is following her. Patient is now transferred to the floor. ID is consulted for new fevers while on antibiotics. Patient has a cholecystostomy tube in place. She also has a HD catheter in place. Fevers started on 02/14/2017 but without any change in regimen appear to be resolving. Review of Systems ROS Limitations: Poor Historian Past Family Social History Allergies: Coded Allergies: Lisinopril (Unverified Allergy, Intermediate, Cough, 01/19/17) Past Medical History Sickle-cell anemia trait Thalassemia trait Anemia of chronic renal insufficiency Monoclonal gammopathy of unknown significance. Sickle-cell trait. Thalassemia trait. Chronic microcytic anemia. End-stage renal failure. Anemia of chronic renal insufficiency. Diabetes Diabetic retinopathy Hypertension Obesity Osteoarthritis Past Surgical History 1. Cataract surgery 2. Colonoscopies Reported Medications Reported Meds & Active Scripts Active Lantus Solostar Pen Inj (Insulin Glargine) 300 Unit/3 Ml Pen 20 Units SQ DAILY Blood Glucose Monitor (Blood-Glucose Meter) 1 Each Each Ea DAILY Oxycodone (Oxycodone HCl) 5 Mg Tab 5 Mg PO Q6H PRN Senna Plus 8.6-50 mg (Sennosides-Docusate Sodium) 1 Tab Tab 1 Tab PO BID Tessalon Perles (Benzonatate) 100 Mg Cap 100 Mg PO TID Ferosul (Ferrous Sulfate) 325 Mg Tablet 325 Mg PO BID Coreg (Carvedilol) 3.125 Mg Tab 3.125 Mg PO Q12HR Reported [iron infusion] Unknown Dose IV [id number] Procrit Inj (Epoetin Moreno) 10,000 Unit/Ml Inj Unknown Dose SQ 3XWEEK Tizanidine (Tizanidine HCl) 4 Mg Cap 4 Mg PO TID Baby Ddrops (Cholecalciferol) 400 Unit/0.03 Ml Liq 400 Units PO DAILY D 400 (Cholecalciferol) 400 Unit Chew Atropine 0.01%-Ns Eye Drops (Atropine Sulfate in 0.9% NaCl) 10 Ml Drops 0.01 Drop LEFT EYE BID D3 (Cholecalciferol) 1,000 Unit Cap Amlodipine (Amlodipine Besylate) 10 Mg Tab 10 Mg PO DAILY Glipizide 10 Mg Tab 10 Mg PO BIDAC Take 30 minutes before a meal Active Ordered Medications Current Medications Medications (Trade) Dose Ordered Sig/Lo Route Start Time Stop Time Status Last Admin (D50w (Vial) Inj) 50 ml UNSCH PRN IV 02/05/17 19:30 Glucagon 1 mg 1 mg UNSCH PRN OTHER 02/05/17 19:30 (NS 1000 ml Inj) 1,000 ml @ 50 mls/hr Q20H IV 02/05/17 19:16 Hold 02/06/17 04:19 (NS Flush) 2 ml UNSCH PRN IV FLUSH 02/05/17 19:30 (NS Flush) 2 ml BID IV FLUSH 02/05/17 21:00 02/15/17 09:00 (Zofran Inj) 4 mg Q6H PRN IVP 02/05/17 19:30 02/12/17 03:32 (Tylenol) 650 mg Q6H PRN PO 02/05/17 19:30 (Roxicodone) 5 mg Q4H PRN PO 02/05/17 19:30 02/12/17 22:10 (Terese-Colace) 1 tab BID PO 02/05/17 21:00 02/15/17 09:50 (Milk Of Magnesia Liq) 30 ml Q12H PRN PO 02/05/17 19:30 02/06/17 07:59 (Senokot) 17.2 mg Q12H PRN PO 02/05/17 19:30 (Dulcolax Supp) 10 mg DAILY PRN RECTAL 02/05/17 19:30 (Lactulose Liq) 30 ml DAILY PRN PO 02/05/17 19:30 02/06/17 17:46 (Norvasc) 10 mg DAILY PO 02/06/17 09:00 Hold 02/06/17 07:57 (Coreg) 3.125 mg Q12HR PO 02/05/17 21:00 02/15/17 09:50 (Zanaflex) 4 mg TID PO 02/06/17 09:00 02/14/17 09:22 (Levemir Inj) 10 units DAILY SQ 02/06/17 09:00 02/15/17 09:52 (Morphine Inj) 1 mg Q4HR PRN IV 02/06/17 12:00 02/15/17 06:18 (Proamatine) 10 mg TID@07,12,17 PO 02/08/17 17:00 02/15/17 16:42 Miscellaneous Information Patient in critical care unit? Ass... Q361D .XX 02/08/17 23:00 (NS Flush) UNSCH PRN IVF 02/09/17 15:30 Heparin Sodium (Porcine) UNSCH PRN IV FLUSH 02/09/17 15:30 (NS 1000 ml Inj) 1,000 ml @ 0 mls/hr Q0M PRN IV 02/09/17 15:39 02/14/17 10:15 Heparin Sodium (Porcine) 8000 units 8,000 units UNSCH PRN IVF 02/09/17 15:45 Sodium Chloride 1,000 ml @ 200 mls/hr Q5H PRN IV 02/09/17 15:39 (NS 1000 ml Inj) 1,000 ml @ 0 mls/hr Q0M PRN IV 02/09/17 15:39 (Mannitol Inj) 12.5 gm UNSCH PRN IV 02/09/17 15:45 (Albumin 25% Inj) 25 gm UNSCH PRN IV 02/09/17 15:45 02/14/17 10:23 (NS Flush) 5 ml UNSCH PRN IV FLUSH 02/09/17 15:45 02/14/17 10:15 (Heparin Inj) UNSCH PRN .XX 02/09/17 15:45 02/14/17 10:14 (Gentamicin (Dialysis) Inj) 20 mg UNSCH PRN IV 02/09/17 15:45 02/14/17 10:14 (Zofran Inj) 4 mg UNSCH PRN IV 02/09/17 15:45 02/10/17 09:36 (Tylenol) 650 mg UNSCH PRN PO 02/09/17 15:45 (Benadryl) 25 mg UNSCH PRN PO 02/09/17 15:45 02/12/17 06:15 (Nitrostat Sl) 0.4 mg UNSCH PRN SL 02/09/17 15:45 (Catapres) 0.1 mg UNSCH PRN PO 02/09/17 15:45 Gelatin 1 foam 1 foam UNSCH PRN TOP 02/09/17 15:45 (Zosyn 2.25 Gm Premix) 50 ml @ 100 mls/hr Q12H IV 02/09/17 18:00 02/15/17 17:44 (Melatonin) 5 mg HS PRN PO 02/10/17 17:15 02/10/17 22:08 (Epogen Inj) 20,000 units UNSCH PRN IV 02/12/17 10:15 02/14/17 10:14 (Roxicodone) 10 mg Q4H PRN PO 02/13/17 11:15 02/14/17 21:38 (Lasix Inj) 40 mg DAILY IV PUSH 02/16/17 09:00 Family History She does have sickle cell trait in the family. Social History She is retired. She lives at home with her . She is retired. She, I believe, works in the [employer] or [employer] in the [place]. Physical Exam Vital Signs Vital Signs Date Time Temp Pulse Resp B/P Pulse Ox O2 Delivery O2 Flow Rate FiO2 02/15/17 12:07 98.8 88 20 146/67 94 02/15/17 08:06 99.0 88 20 128/71 91 02/15/17 07:00 89 02/15/17 07:00 94 Nasal Cannula 4.00 02/15/17 06:35 99.3 89 17 153/71 90 02/15/17 00:00 98.6 81 18 134/63 93 02/14/17 21:30 Nasal Cannula 4.00 02/14/17 20:00 98.5 85 18 151/68 90 02/14/17 19:00 83 02/14/17 16:10 98.3 81 20 146/65 95 Physical Exam GENERAL: Obese, AAF patient, in no apparent distress. SKIN: No rashes, ecchymoses or lesions. Cool and dry. HEAD: Atraumatic. Normocephalic. No temporal or scalp tenderness. EYES: Pupils equal round and reactive. Extraocular motions intact. No scleral icterus. No injection or drainage. ENT: Nose without bleeding, purulent drainage or septal hematoma. Throat without erythema, tonsillar hypertrophy or exudate. Uvula midline. Airway patent. NECK: Trachea midline. Large neck. Supple, nontender, no meningeal signs. CARDIOVASCULAR: ? systolic murmur. RESPIRATORY: Clear to auscultation. Breath sounds equal bilaterally but decreased in bases/. GASTROINTESTINAL: Abdomen soft, non-tender, nondistended. RUQ cholecystostomy tube in place. MUSCULOSKELETAL: Extremities without clubbing, cyanosis, or edema. No joint tenderness, effusion, or edema noted. No calf tenderness. Negative Homans sign bilaterally. NEUROLOGICAL: Awake and alert.Grossly non focal Psych cooperative HD cath site with no e.o infection Laboratory Laboratory Tests Test 02/14/17 02/15/17 16:40 06:11 Urine Color YELLOW Urine Turbidity CLOUDY Urine pH 8.0 Urine Specific [place] 1.012 Urine Protein 300 Urine Glucose (UA) NEG Urine Ketones NEG Urine Occult Blood MOD Urine Nitrite NEG Urine Bilirubin NEG Urine Urobilinogen LESS THAN 2.0 Urine Leukocyte Esterase LARGE Urine RBC Urine WBC 131 Urine Squamous Epithelial 42 Cells Urine Bacteria MANY Urine Mucus FEW Urine Yeast with Hyphae MANY Urine Yeast (Budding) MANY Microscopic Urinalysis Comment CULTURE INDICATED White Blood Count 12.6 Red Blood Count 3.98 Hemoglobin 8.1 Hematocrit 26.8 Mean Corpuscular Volume 67.3 Mean Corpuscular Hemoglobin 20.2 Mean Corpuscular Hemoglobin 30.1 Concent Red Cell Distribution Width 16.1 Platelet Count 322 Mean Platelet Volume 8.2 Neutrophils (%) (Auto) 81.0 Lymphocytes (%) (Auto) 8.3 Monocytes (%) (Auto) 7.5 Eosinophils (%) (Auto) 2.9 Basophils (%) (Auto) 0.3 Neutrophils # (Auto) 10.2 Lymphocytes # (Auto) 1.0 Monocytes # (Auto) 0.9 Eosinophils # (Auto) 0.4 Basophils # (Auto) 0.0 CBC Comment DIFF FINAL Differential Comment Sodium Level 137 Potassium Level 4.6 Chloride Level 97 Carbon Dioxide Level 31.1 Anion Gap 9 Blood Urea Nitrogen 44 Creatinine 5.66 Estimat Glomerular Filtration 9 Rate Random Glucose 137 Calcium Level 8.3 Date/Time Procedure Status Source Growth 02/14/17 16:40 Urine Culture - Preliminary Resulted Urine Clean Catch IMMATURE GROWTH - REINCUBATE Result Diagram: 02/15/1711 02/15/17 06 Imaging Last Impressions Chest X-Ray 02/14/17 0000 Signed Impressions: Service Date/Time: Tuesday, February 14, 2017 14:15 - CONCLUSION: 1. Small to moderate right pleural effusion and small left pleural effusion. 2. Diffuse pulmonary edema. 3. Cardiomegaly. Sadi Chilel MD Abdomen X-Ray 02/14/17 0000 Signed Impressions: Service Date/Time: Tuesday, February 14, 2017 14:20 - CONCLUSION: 1. No bowel obstruction or ileus. 2. Degenerative changes involving the lumbar and lower thoracic spine. Sadi Chilel MD Catheter Placement X-Ray 02/09/17 0000 Signed Impressions: Service Date/Time: Thursday, February 09, 2017 15:10 - CONCLUSION: Uncomplicated line placement as above. Kolby Hughes Jr., MD Percutaneous Cholangiogram 02/06/17 0000 Signed Impressions: Service Date/Time: Monday, February 06, 2017 15:15 - CONCLUSION: Uncomplicated percutaneous cholecystostomy as above. Thick inspissated bile was noted. The drainage is fairly low given the size of the gallbladder and therefore a CT will be performed to confirm appropriate positioning of the cholecystostomy tube. Kolby Hughes Jr., MD Abdomen CT 02/06/17 0000 Signed Impressions: Service Date/Time: Monday, February 06, 2017 16:21 - CONCLUSION: Interval cholecystostomy tube placement. Worsening parenchymal disease in the lung bases. Ney Lutz MD Abdomen/Pelvis CT 02/05/17 1656 Signed Impressions: Service Date/Time: January 18:15 - CONCLUSION: 1. Gallbladder is abnormal. It is markedly distended with gallbladder wall thickening and mild induration of the pericholecystic fat concerning for cholecystitis. High attenuation within the gallbladder lumen may be related to sludge or clot. 2. Left basilar atelectasis and tiny left effusion. Juan De Souza MD Gall Bladder Ultrasound 02/05/17 0000 Signed Impressions: Service Date/Time: January 20:39 - CONCLUSION: 1. The gallbladder is abnormal with findings corresponding to the findings on the CT exam. There is wall thickening, marked distention and the lumen is occupied by echogenic shadowing material which may reflect sludge or hemorrhage. A few stones are suspected. Juan De Souza MD Assessment and Plan Assessment and Plan Acute cholecystitis New fever and leucocytosis (appears stable and defervescing without change in RX ) SIRS could be from infectious or non infectious etiologies. Recs Continue Zosyn IV for now. Will d.w Surgeons about plan for Cholecystostomy tube Follow temp trends. If fevers recurr will get blood cultures (from HD cath and periphery) CXR c/w pulm edema and pleural effusion. Will dw Nephrology about care home HD plan. If fevers recurr and cultures negative will consider switching regimen ? Drug fever. Also will get Doppler LE at risk for DVT. d.w Follow cultures Follow clinically. Still sick but stable for now. No s.o overt sepsis at present time. SIRS could be from other non infectious etiologies as stated above. Usha Velarde MD Feb 15, 2017 16:05
--- NOTE | 2017-02-15 16:23 | HHI.NPPN ---
Subjective History of Present Illness 66-year-old female with a past medical history of hypertension, diabetes mellitus, chronic kidney disease, anemia and chronic back pain, who was admitted because of abdominal pain, nausea and vomiting. I was called to see the patient because of elevated BUN and creatinine. The patient has known history of chronic kidney disease and she had acute kidney injury. Additional Remarks Patient is not eating well. Objective Data Data 02/14/17 02/15/17 19:00 07:00 Intake Total 360 ml 240 ml Output Total 620 ml 400 ml Balance -260 ml -160 ml Intake Oral 360 ml 240 ml Output Urine Total 120 ml 400 ml Hemodialysis 500 ml # Bowel Movements 0 0 Vital Signs Date Time Temp Pulse Resp B/P Pulse Ox O2 Delivery O2 Flow Rate FiO2 02/15/17 12:07 98.8 88 20 146/67 94 02/15/17 08:06 99.0 88 20 128/71 91 02/15/17 07:00 89 02/15/17 07:00 94 Nasal Cannula 4.00 02/15/17 06:35 99.3 89 17 153/71 90 02/15/17 00:00 98.6 81 18 134/63 93 02/14/17 21:30 Nasal Cannula 4.00 02/14/17 20:00 98.5 85 18 151/68 90 02/14/17 19:00 83 -: 02/15/17 0611 02/15/17 0611 Microbiology 02/14/17 Urine Culture - Preliminary, Resulted IMMATURE GROWTH - REINCUBATE Physical Exam General Appearance: Anxious Eyes Eye Exam: Pupils Equal Throat Throat Exam: Oral Mucosa [place] & Moist Neck Neck Exam: Neck Supple Pulmonary Resp Exam: Breath Sounds Equal, No Distress, Rhonchi, Decreased Bases Cardiology CV Exam: Regular, Normal Sinus Rhythm Gastrointestinal/Abdomen GI Exam: Soft, Bowel Sounds Present, Distended Extremeties Extremities Exam: Trace Edema Neurologic Neuro Exam: Alert, Awake, Oriented Psychiatric Psych Exam: Appropriate Responses Assessment/Plan Assessment Summary: GRADY/Acute Renal Failure, Hypotension, CKD Stage IV Problem List: (1) Diabetes mellitus (2) CHF (congestive heart failure) (3) Cholecystitis (4) Gallstones (5) Elevated LFTs (6) Anemia (7) Stage 4 chronic kidney disease (8) Acute kidney failure Plan BP is stable. Creatinine still elevated. Most likely has ATN due to hypotension causing GRADY. Continue antibiotics. Urine out put is slightly better. Add Epogen with HD. Watch for renal recovery. Creatinine is still elevated. HD yesterday Dr. Cook to follow Problem Qualifiers (1) Anemia: Axel Edmonds MD Feb 15, 2017 16:23
[2017-02-16] VITALS (8 sets, daily range): BP systolic 128–159; BP diastolic 67–88; PULSE 72–91; RESP 18–22; TEMP 97.6–99; O2SAT 95–99
[2017-02-16] MEDS: MORPHINE SULFATE 4 MG/ML INJ IV PRN ×2 (05:06→15:57)
[2017-02-16] MEDS: MIDODRINE 5 MG TAB PO SCH ×3 (06:56→17:39)
[2017-02-16] MEDS: PIPERACIL-TAZO 2.25 GM PREMIX 50 ML IV SCH ×2 (06:56→18:35)
[2017-02-16] MEDS: INSULIN ASPART SUPPLEMENTAL SCALE SQ SCH ×4 (07:02→20:20)
--- NOTE | 2017-02-16 07:37 | RADRPT ---
EXAM DATE/TIME: 02/16/2017 06:18 [facility] COMPARISON: CHEST SINGLE AP, February 14, 2017, 14:15. INDICATIONS : Short of breath, evaluate infiltrate MEDICAL HISTORY : gallbladder disease, renal failure SURGICAL HISTORY : Cholecystectomy. ENCOUNTER: Subsequent ACUITY: 2 weeks PAIN SCORE: Non-responsive. LOCATION: Bilateral chest FINDINGS: Single view of the chest demonstrates a stable right-sided central line with the tip overlying the di stal SVC. Heart size appears grossly normal. The lungs demonstrate bilateral opacification of the hem idiaphragms and hazy opacity involving the lung bases consistent with layering pleural effusions and overlying atelectasis. The osseous structures are grossly unremarkable. CONCLUSION: Stable exam with bilateral pleural effusions and overlying atelectasis. Mariana Atkins MD on February 16, 2017 at 7:34 Board Certified Radiologist. This report was verified electronically.
[2017-02-16] MEDS: DOCUSATE SODIUM 50 MG/SENNA 8.6 MG TAB PO SCH ×2 (08:57→20:18)
[2017-02-16] MEDS: CARVEDILOL 3.125 MG TAB PO SCH ×2 (08:58→20:18)
[2017-02-16] MEDS: FUROSEMIDE 40 MG/4 ML VIAL IV PUSH SCH (08:59)
[2017-02-16] MEDS: INSULIN DETEMIR 100 UNITS/ML VIAL SQ SCH (09:00)
[2017-02-16 10:02] LABS: AUTOMATED NEUTROPHIL # 13.1 TH/MM3 (1.8-7.7); BASOPHIL % 0.2 % (0.0-2.0); EOSINOPHIL # 0.2 TH/MM3 (0-0.4); EOSINOPHIL % 1.1 % (0.0-4.0); HEMATOCRIT 27.2 % (35.0-46.0); HEMO FLAGS DIFF FINAL; LYMPH % 5.8 % (9.0-44.0); LYMPHOCYTE # 0.9 TH/MM3 (1.0-4.8); MEAN CELL VOLUME 67.2 FL (80.0-100.0); MEAN CORPUSCULAR HEMOGLOBIN 20.7 PG (27.0-34.0); MEAN CORPUSCULAR HGB CONC 30.8 % (32.0-36.0); MONO % 8.3 % (0.0-8.0); NEUT % 84.6 % (16.0-70.0); PLATELET COUNT 413 TH/MM3 (150-450); RED BLOOD COUNT 4.04 MIL/MM3 (4.00-5.30); RED CELL DISTRIBUTION WIDTH 16.3 % (11.6-17.2); WHITE BLOOD COUNT 15.5 TH/MM3 (4.0-11.0)
[2017-02-16 10:27] LABS: BICARBONATE 27.2 MEQ/L (21.0-32.0); POTASSIUM 4.7 MEQ/L (3.5-5.1)
--- NOTE | 2017-02-16 10:51 | HHI.NPPN ---
Subjective History of Present Illness 66-year-old female with a past medical history of hypertension, diabetes mellitus, chronic kidney disease, anemia and chronic back pain, who was admitted because of abdominal pain, nausea and vomiting. I was called to see the patient because of elevated BUN and creatinine. The patient has known history of chronic kidney disease and she had acute kidney injury. Additional Remarks Patient is awake, in mild resp. distress. Objective Data Data 02/15/17 02/16/17 19:00 07:00 Intake Total 360 ml 580 ml Output Total 100 ml 205 ml Balance 260 ml 375 ml Intake Oral 360 ml 480 ml IV Total 100 ml Output Urine Total 100 ml 200 ml Drainage Total 5 ml # Bowel Movements 0 1 Vital Signs Date Time Temp Pulse Resp B/P Pulse Ox O2 Delivery O2 Flow Rate FiO2 02/16/17 08:00 98.6 87 20 150/67 97 02/16/17 04:00 98.3 91 22 145/67 97 02/16/17 00:00 99.0 88 18 151/88 99 02/15/17 20:45 Non-Rebreather 15.00 02/15/17 20:00 98.7 90 22 189/77 97 02/15/17 19:35 98 Non-Rebreather 15.00 100 02/15/17 16:42 94 Non-Rebreather 15.00 02/15/17 16:00 98.6 91 20 157/76 86 02/15/17 12:07 98.8 88 20 146/67 94 -: 02/16/17 0858 02/16/17 0858 Physical Exam General Appearance: Anxious Eyes Eye Exam: Pupils Equal Throat Throat Exam: Oral Mucosa [place] & Moist Neck Neck Exam: Neck Supple Pulmonary Resp Exam: Breath Sounds Equal, No Distress, Rhonchi, Decreased Bases Cardiology CV Exam: Regular, Normal Sinus Rhythm Gastrointestinal/Abdomen GI Exam: Soft, Bowel Sounds Present, Distended Extremeties Extremities Exam: Trace Edema Neurologic Neuro Exam: Alert, Awake, Oriented Psychiatric Psych Exam: Appropriate Responses Assessment/Plan Assessment Summary: GRADY/Acute Renal Failure, Hypotension, CKD Stage IV Problem List: (1) Diabetes mellitus (2) CHF (congestive heart failure) (3) Cholecystitis (4) Gallstones (5) Elevated LFTs (6) Anemia (7) Stage 4 chronic kidney disease (8) Acute kidney failure Plan BP is stable. Creatinine still elevated. Most likely has ATN due to hypotension causing GRADY. Continue antibiotics. Urine out put is slightly better. Add Epogen with HD. Watch for renal recovery. Creatinine is still elevated. HD will be in AM. Problem Qualifiers (1) Anemia: Svitlana Cook MD Feb 16, 2017 10:51 Svitlana Cook MD Feb 16, 2017 10:51
--- NOTE | 2017-02-16 16:20 | HHI.PR ---
Subjective Remarks Patient's daughter at bedside. She is very frustrated because her mom does not like the food she is getting however she is not able to order her own food because she is blind. She states that her mom wants certain things in the menu however no one will help her order. Patient states she's feeling better today. Her shortness of breath is improved. She denies any nausea or vomiting, chest pain. Apparently daughter had requested that a physician call her but this information was never relayed to me. Patient's daughter states she is an RN, she understands the importance of a calorie count, and she feels that her nursing staff should make more effort for her mother to eat. Patient tells me she does not want a tube feed Objective Vitals Vital Signs Date Time Temp Pulse Resp B/P Pulse Ox O2 Delivery O2 Flow Rate FiO2 02/16/17 12:00 97.6 76 20 150/74 97 02/16/17 10:00 97 Partial Rebreather 13.00 02/16/17 08:00 98.6 87 20 150/67 97 02/16/17 04:00 98.3 91 22 145/67 97 02/16/17 00:00 99.0 88 18 151/88 99 02/15/17 20:45 Non-Rebreather 15.00 02/15/17 20:00 98.7 90 22 189/77 97 02/15/17 19:35 98 Non-Rebreather 15.00 100 02/15/17 16:42 94 Non-Rebreather 15.00 I/O 02/15/17 02/15/17 02/15/17 02/16/17 02/16/17 02/16/17 06:59 14:59 22:59 06:59 14:59 22:59 Intake Total 940 ml Output Total 200 ml 305 ml 0 ml Balance -200 ml 635 ml 0 ml Intake Oral 840 ml IV Total 100 ml Output Urine Total 200 ml 300 ml Drainage Total 5 ml 0 ml # Bowel Movements 0 0 1 Result Diagram: 02/16/17 0858 02/16/17 0858 Imaging Last Impressions Chest X-Ray 02/16/17 0000 Signed Impressions: Service Date/Time: Thursday, February 16, 2017 06:18 - CONCLUSION: Stable exam with bilateral pleural effusions and overlying atelectasis. Mariana Atkins MD Abdomen X-Ray 02/14/17 0000 Signed Impressions: Service Date/Time: Tuesday, February 14, 2017 14:20 - CONCLUSION: 1. No bowel obstruction or ileus. 2. Degenerative changes involving the lumbar and lower thoracic spine. Sadi Chilel MD Catheter Placement X-Ray 02/09/17 0000 Signed Impressions: Service Date/Time: Thursday, February 09, 2017 15:10 - CONCLUSION: Uncomplicated line placement as above. Kolby Hughes Jr., MD Percutaneous Cholangiogram 02/06/17 0000 Signed Impressions: Service Date/Time: Monday, February 06, 2017 15:15 - CONCLUSION: Uncomplicated percutaneous cholecystostomy as above. Thick inspissated bile was noted. The drainage is fairly low given the size of the gallbladder and therefore a CT will be performed to confirm appropriate positioning of the cholecystostomy tube. Kolby Hughes Jr., MD Abdomen CT 02/06/17 0000 Signed Impressions: Service Date/Time: Monday, February 06, 2017 16:21 - CONCLUSION: Interval cholecystostomy tube placement. Worsening parenchymal disease in the lung bases. Ney Lutz MD Abdomen/Pelvis CT 02/05/17 1656 Signed Impressions: Service Date/Time: January 18:15 - CONCLUSION: 1. Gallbladder is abnormal. It is markedly distended with gallbladder wall thickening and mild induration of the pericholecystic fat concerning for cholecystitis. High attenuation within the gallbladder lumen may be related to sludge or clot. 2. Left basilar atelectasis and tiny left effusion. Juan De Souza MD Gall Bladder Ultrasound 02/05/17 0000 Signed Impressions: Service Date/Time: January 20:39 - CONCLUSION: 1. The gallbladder is abnormal with findings corresponding to the findings on the CT exam. There is wall thickening, marked distention and the lumen is occupied by echogenic shadowing material which may reflect sludge or hemorrhage. A few stones are suspected. Juan De Souza MD Objective Remarks GENERAL: appears tired however she does look more alert today NECK: trachea midline. CARDIOVASCULAR: Regular rate and regular rhythm with 1-2SEM murmurs RESPIRATORY: Minimal crackles at the bases. decrease breath sounds bilaterally. GASTROINTESTINAL: Abdomen soft, hypoactive bowel sounds, some discomfort w deep palpation throughout. cholecystostomy tube noted. . NEURO: More alert today. answers some questions. Psych: pleasant but is quiet Procedures Vas-Cath placement per IR cholecystostomy tube placement A/P Problem List: (1) Cholecystitis ICD Code: K81.9 Status: Acute (2) Elevated LFTs ICD Code: R79.89 Status: Acute (3) Renal insufficiency ICD Code: N28.9 Status: Acute (4) CHF (congestive heart failure) ICD Code: I50.9 Status: Chronic (5) DM (diabetes mellitus) ICD Code: E11.9 Status: Acute Assessment and Plan Acute cholecystitis - Status post cholecystostomy tube placement by IR - on Zosyn. no fevers overnight. continue to encourage use of IS q1hr while awake. Urine culture negative. Infectious disease following, recommending to continue IV Zosyn for now. If she does spike a fever we'll get blood cultures. Also recommend getting ultrasound of lower extremities to rule out DVT as she is at high risk for it. Monitor leukocytosis. - continue pain control - Per general surgery, she is a poor sx candidate, they have signed off. - KUB neg for obstruction or ileus. Acute systolic CHF/Pulm Edema/pleural effusion: noted on x-ray. Pt on partial nonrebreather. on IV lasix 40mg daily, will continue. monitor pt closely. monitor kidney function as well. Caution because her creatinine is increasing. Nephrology following 2D ECHO, EF of 30-35%. will get cardiology for further eval and recs. continue IV lasix, fluid restrictions to 1500ml/d, low sodium diet. Acute on chronic kidney injury - Management per nephrology- s/pBumex infusion, sodium bicarbonate infusion discontinued 02/09 - 02/09 for Vas-Cath replacement- HD initiated. Hypotension-resolved -- likely secondary to sepsis and renal failure -- midodrine 10mg po tid Metabolic acidosis - Due to kidney injury - Treated underlying condition Diabetes mellitus - Levemir and insulin sliding scale Chronic pain syndrome Insomnia -Melatonin 5 mg by mouth daily at bedtime PRN for insomnia -continue pain control. Mild protein calorie Malnutrition -Nutrition consult -Calorie count was completed on thursday but apparently no meals were being recorded. Calory count has been restarted. Discussed w RN, nursing staff to help pt order meals as she doesn't like what on the automatic tray. family to assist w this as well. anemia of chronic disease hematology evaluation appreciated and started on Epogen and IV iron. will monitor H/H. DVT prophylaxis - Teds SCDs Discharge Planning calorie count re-ordered. ID following cardiology consult in place. Daughter Johanny would like to be called/updated when major updates occur Kate Godoy MD Feb 16, 2017 16:20
[2017-02-16] MEDS: HEPARIN SODIUM - SQ 10,000 UNITS/ML VIAL SQ SCH (20:19)
[2017-02-16] MEDS: SODIUM CHLORIDE 0.9% FLUSH 10 ML FLUSH IV FLUSH SCH (21:00)
--- NOTE | 2017-02-16 23:06 | RADRPT ---
EXAM DATE/TIME: 02/16/2017 20:41 [facility] COMPARISON: No previous studies available for comparison. INDICATIONS : Bilateral leg swelling. MEDICAL HISTORY : Hypercholesterolemia. Hypertension. Renal insufficiency. Dizziness. Cardiac disorder. Hyperlipidemia. Diabetes. Anemia. SURGICAL HISTORY : Cataracts. Eye prosthesis. ENCOUNTER: Initial ACUITY: 1 day PAIN SCORE: 0/10 LOCATION: Bilateral legs. TECHNIQUE: Venous ultrasound of the left and right leg was performed from the inguinal ligament to the proximal calf. Real-time, color Doppler and spectral tracing, compression and augmentation techniques were us ed. FINDINGS: RIGHT LEG: There is normal compressibility of the deep venous system from the inguinal region to the proximal ca lf. No echogenic clot is seen in the lumen of the common femoral, femoral, popliteal, and posterior tibial veins. There is a normal response of the venous system to proximal and distal augmentation an d respiration. LEFT LEG: There is normal compressibility of the deep venous system from the inguinal region to the proximal ca lf. No echogenic clot is seen in the lumen of the common femoral, femoral, popliteal, and posterior tibial veins. There is a normal response of the venous system to proximal and distal augmentation an d respiration. CONCLUSION: Negative exam. No evidence of deep venous thrombosis. Kevin Sofia MD on February 16, 2017 at 23:04 Board Certified Radiologist. This report was verified electronically.
[2017-02-17] VITALS (7 sets, daily range): BP systolic 111–166; BP diastolic 60–72; PULSE 73–102; RESP 18–20; TEMP 97.3–98; O2SAT 97–100
[2017-02-17] MEDS: PIPERACIL-TAZO 2.25 GM PREMIX 50 ML IV SCH (05:16)
[2017-02-17] MEDS: MIDODRINE 5 MG TAB PO SCH ×3 (05:17→17:00)
[2017-02-17] MEDS: INSULIN ASPART SUPPLEMENTAL SCALE SQ SCH ×4 (05:25→23:30)
--- NOTE | 2017-02-17 08:28 | MB ---
cc: CHIN ANDREA DO DATE OF CONSULTATION February 16, 2017 REASON FOR CONSULTATION Congestive heart failure. HISTORY OF PRESENT ILLNESS Stefanie Rg is a pleasant 66-year-old female who originally presented on February 05, 2017, due to abdominal pain, nausea and vomiting. She was found to have acute cholecystitis and since that time she has had placement of a cholecystostomy tube as it was felt that she was too high risk for surgery. Since then she has been in the hospital and was noted to be requiring more oxygen. Previously she was on 2-4 liters but over the past two days it appears that she has needed a non-rebreather mask. In talking with her she states that she has not had any chest pain and that she does not feel overly short of breath. She is mildly lethargic lying in bed but is arousable. PAST MEDICAL HISTORY 1. Hypertension. 2. Congestive heart failure with last known ejection fraction of 30-35% by echocardiogram (December 17, 2016). 3. Chronic kidney disease Stage IV to V. 4. Chronic anemia. 5. Thalassemia. PAST SURGICAL HISTORY Eye surgery. ALLERGIES LISINOPRIL. MEDICATIONS 1. Coreg 3.125 every 12 hours. 2. Tizanidine 4 mg t.i.d. 3. Norvasc 10 mg daily 4. Procrit three times a week. 5. Lantus 20 units daily. 6. Iron 325 mg b.i.d. 7. Oxycodone 5 mg every 6 hours as needed for pain. 8. Glipizide 10 mg b.i.d. FAMILY HISTORY Denies premature coronary artery disease or sudden cardiac within the family. SOCIAL HISTORY Denies alcohol, tobacco or drugs. REVIEW OF SYSTEMS 14-systems were reviewed including osteopathic pertinent positives and negatives above, otherwise negative. PHYSICAL EXAMINATION VITAL SIGNS: Temperature 97.6, heart rate 73, blood pressure 159/67, respirations 18, pulse ox 98% on a partial non-rebreather. IN GENERAL: The patient is mildly lethargic but easily arousable. Extraocular muscles intact. Mucous membranes moist. NECK: Supple. No JVD at 45 degrees. No carotid bruits heard bilaterally. Carotid upstroke is brisk in nature. HEART: Regular rate and rhythm. Positive first and second heart sounds with a 1/6 holosystolic murmur noted at the apex. LUNGS: Crackles at bilateral bases with decreased breath sounds bilaterally. ABDOMEN: Soft, nontender, nondistended. No organomegaly noted. Cholecystostomy tube noted. EXTREMITIES: No clubbing, cyanosis or edema. Femoral and distal pulses intact bilaterally. NEUROLOGICALLY: No focal deficits. SKIN: Warm, dry and intact. OSTEOPATHIC: Mild kyphoscoliosis, no lordosis or paraspinal tender points. LABORATORY DATA Hemoglobin 18.4, hematocrit 27.2, platelets 413. Potassium 4.7, BUN 66, creatinine 7.66. IMPRESSIONS 1. Cardiomyopathy of unknown type with ejection fraction of 30-35% 2. Acute cholecystitis status post cholecystostomy tube placement by IR. 3. Acute on chronic kidney injury. 4. Diabetes mellitus 5. Anemia of chronic disease. RECOMMENDATIONS 1. Ms. Rg will continue to be treated for her cardiomyopathy with carvedilol. She was previously hypotensive but now has had to some episodes of hypertension. If this continues, this may be titrated up. 2. She should have aspirin added to her regimen due to her overall cardiomyopathy. I will plan on placing her on 81 mg daily. 3. As her kidney function has gotten worse most likely due to ATN, her weights have consistently gone up and this most likely represents her acute heart failure. Nephrology is planning dialysis and I would continue fluid management per nephrology's recommendations by hemodialysis and diuresis as she still makes urine. 4. As far as her cardiomyopathy goes, I do not believe this has ever been evaluated for a possible cause whether ischemic or nonischemic. For now we will allow her to get further through her acute illness before further discussions with her and her daughter about consideration of possible evaluation. 5. We will continue with fluid management per Nephrology. If her oxygen needs do not seem to decrease and may need to do a CT to determine if she has pleural effusions. It could be drained versus consideration of a CTA as she was just recently put on heparin to determine if there is any pulmonary embolism as a secondary cause for her hypoxia. This will be discussed further with the primary team and determined as she is having hemodialysis tomorrow. Thank you for allowing me to see the Stefanie Rg. If there are any questions, please do not hesitate to call. Chin Andrea DO VGP/SSB /11:03 PM /8:11 AM
[2017-02-17] MEDS: INSULIN DETEMIR 100 UNITS/ML VIAL SQ SCH (08:35)
[2017-02-17] MEDS: diphenhydrAMINE HCL 25 MG CAP PO PRN (08:45)
[2017-02-17] MEDS: SODIUM CHLORIDE 0.9% FLUSH 10 ML FLUSH IV FLUSH SCH ×2 (09:00→22:00)
[2017-02-17] MEDS: DOCUSATE SODIUM 50 MG/SENNA 8.6 MG TAB PO SCH ×2 (09:00→22:00)
[2017-02-17] MEDS: CARVEDILOL 3.125 MG TAB PO SCH ×2 (09:00→22:00)
[2017-02-17] MEDS: HEPARIN SODIUM - SQ 10,000 UNITS/ML VIAL SQ SCH ×2 (09:09→22:00)
[2017-02-17] MEDS: FUROSEMIDE 40 MG/4 ML VIAL IV PUSH SCH (09:10)
[2017-02-17] MEDS: ASPIRIN 81 MG CHEW TAB CHEW SCH (09:10)
[2017-02-17 10:19] LABS: AUTOMATED NEUTROPHIL # 10.9 TH/MM3 (1.8-7.7); BASOPHIL # 0.1 TH/MM3 (0-0.2); BASOPHIL % 0.4 % (0.0-2.0); EOSINOPHIL # 0.4 TH/MM3 (0-0.4); EOSINOPHIL % 3.1 % (0.0-4.0); HEMATOCRIT 24.8 % (35.0-46.0); HEMO FLAGS DIFF FINAL; LYMPH % 7.6 % (9.0-44.0); MEAN CELL VOLUME 67.6 FL (80.0-100.0); MEAN CORPUSCULAR HEMOGLOBIN 20.8 PG (27.0-34.0); MEAN CORPUSCULAR HGB CONC 30.7 % (32.0-36.0); MONO % 8.6 % (0.0-8.0); NEUT % 80.3 % (16.0-70.0); PLATELET COUNT 414 TH/MM3 (150-450); RED BLOOD COUNT 3.66 MIL/MM3 (4.00-5.30); RED CELL DISTRIBUTION WIDTH 16.3 % (11.6-17.2); WHITE BLOOD COUNT 13.5 TH/MM3 (4.0-11.0)
[2017-02-17 10:43] LABS: BICARBONATE 30.8 MEQ/L (21.0-32.0); POTASSIUM 4.9 MEQ/L (3.5-5.1)
--- NOTE | 2017-02-17 11:38 | PD.CARD.PN ---
Subjective Subjective Remarks No events overnight No chest pain Stable on non-rebreather Objective Medications Current Medications Medications (Trade) Dose Ordered Sig/Lo Route Start Time Stop Time Status Last Admin (D50w (Vial) Inj) 50 ml UNSCH PRN IV 02/05/17 19:30 Glucagon 1 mg 1 mg UNSCH PRN OTHER 02/05/17 19:30 (NS 1000 ml Inj) 1,000 ml @ 50 mls/hr Q20H IV 02/05/17 19:16 Hold 02/06/17 04:19 (NS Flush) 2 ml UNSCH PRN IV FLUSH 02/05/17 19:30 (NS Flush) 2 ml BID IV FLUSH 02/05/17 21:00 02/16/17 21:00 (Zofran Inj) 4 mg Q6H PRN IVP 02/05/17 19:30 02/12/17 03:32 (Tylenol) 650 mg Q6H PRN PO 02/05/17 19:30 (Roxicodone) 5 mg Q4H PRN PO 02/05/17 19:30 02/12/17 22:10 (Terese-Colace) 1 tab BID PO 02/05/17 21:00 02/16/17 20:18 (Milk Of Magnesia Liq) 30 ml Q12H PRN PO 02/05/17 19:30 02/06/17 07:59 (Senokot) 17.2 mg Q12H PRN PO 02/05/17 19:30 (Dulcolax Supp) 10 mg DAILY PRN RECTAL 02/05/17 19:30 (Lactulose Liq) 30 ml DAILY PRN PO 02/05/17 19:30 02/06/17 17:46 (Norvasc) 10 mg DAILY PO 02/06/17 09:00 Hold 02/06/17 07:57 (Coreg) 3.125 mg Q12HR PO 02/05/17 21:00 02/16/17 20:18 (Zanaflex) 4 mg TID PO 02/06/17 09:00 02/16/17 17:39 (Levemir Inj) 10 units DAILY SQ 02/06/17 09:00 02/17/17 08:35 (Morphine Inj) 1 mg Q4HR PRN IV 02/06/17 12:00 02/16/17 15:57 (Proamatine) 10 mg TID@07,12,17 PO 02/08/17 17:00 02/17/17 05:17 Miscellaneous Information Patient in critical care unit? Ass... Q361D .XX 02/08/17 23:00 (NS Flush) UNSCH PRN IVF 02/09/17 15:30 Heparin Sodium (Porcine) UNSCH PRN IV FLUSH 02/09/17 15:30 (NS 1000 ml Inj) 1,000 ml @ 0 mls/hr Q0M PRN IV 02/09/17 15:39 02/14/17 10:15 Heparin Sodium (Porcine) 8000 units 8,000 units UNSCH PRN IVF 02/09/17 15:45 Sodium Chloride 1,000 ml @ 200 mls/hr Q5H PRN IV 02/09/17 15:39 (NS 1000 ml Inj) 1,000 ml @ 0 mls/hr Q0M PRN IV 02/09/17 15:39 (Mannitol Inj) 12.5 gm UNSCH PRN IV 02/09/17 15:45 (Albumin 25% Inj) 25 gm UNSCH PRN IV 02/09/17 15:45 02/14/17 10:23 (NS Flush) 5 ml UNSCH PRN IV FLUSH 02/09/17 15:45 02/14/17 10:15 (Heparin Inj) UNSCH PRN .XX 02/09/17 15:45 02/14/17 10:14 (Gentamicin (Dialysis) Inj) 20 mg UNSCH PRN IV 02/09/17 15:45 02/14/17 10:14 (Zofran Inj) 4 mg UNSCH PRN IV 02/09/17 15:45 02/10/17 09:36 (Tylenol) 650 mg UNSCH PRN PO 02/09/17 15:45 (Benadryl) 25 mg UNSCH PRN PO 02/09/17 15:45 02/17/17 08:45 (Nitrostat Sl) 0.4 mg UNSCH PRN SL 02/09/17 15:45 (Catapres) 0.1 mg UNSCH PRN PO 02/09/17 15:45 Gelatin 1 foam 1 foam UNSCH PRN TOP 02/09/17 15:45 (Zosyn 2.25 Gm Premix) 50 ml @ 100 mls/hr Q12H IV 02/09/17 18:00 02/17/17 05:16 (Melatonin) 5 mg HS PRN PO 02/10/17 17:15 02/10/17 22:08 (Epogen Inj) 20,000 units UNSCH PRN IV 02/12/17 10:15 02/14/17 10:14 (Roxicodone) 10 mg Q4H PRN PO 02/13/17 11:15 02/17/17 08:46 (Lasix Inj) 40 mg DAILY IV PUSH 02/16/17 09:00 02/17/17 09:10 (Heparin Inj) 5,000 units Q12HR SQ 02/16/17 21:00 02/17/17 09:09 (Aspirin Chew) 81 mg DAILY CHEW 02/17/17 09:00 02/17/17 09:10 Vital Signs / I&O Vital Signs Date Time Temp Pulse Resp B/P Pulse Ox O2 Delivery O2 Flow Rate FiO2 02/17/17 09:35 97 Partial Rebreather 15.00 02/17/17 08:00 97.5 73 20 123/60 98 02/17/17 05:31 98.0 75 18 130/62 97 02/17/17 00:25 97.7 73 18 144/63 98 02/16/17 23:35 98 Non-Rebreather 13.00 02/16/17 20:49 97.6 73 18 159/67 98 02/16/17 20:00 72 02/16/17 18:06 Partial Rebreather 13.00 02/16/17 16:00 98.0 75 20 128/87 95 02/16/17 12:00 97.6 76 20 150/74 97 I/O 02/16/17 02/16/17 02/16/17 02/17/17 02/17/17 02/17/17 07:00 15:00 23:00 07:00 15:00 23:00 Output Total 0 ml 400 ml 400 ml Balance 0 ml -400 ml -400 ml Output Urine Total 400 ml 400 ml Drainage Total 0 ml # Bowel Movements 1 1 1 Physical Exam GENERAL: NAD, alert and awake SKIN: Warm and dry. HEAD: Atraumatic. Normocephalic. EYES: Pupils equal and round. No scleral icterus. No injection or drainage. ENT: No nasal bleeding or discharge. Mucous membranes pink and moist. NECK: Trachea midline. No JVD. CARDIOVASCULAR: Regular rate and rhythm. RESPIRATORY: No accessory muscle use. Decreased breath sounds bilaterally, mild crackles GASTROINTESTINAL: Abdomen soft, non-tender, nondistended. Hepatic and splenic margins not palpable. MUSCULOSKELETAL: Extremities without clubbing, cyanosis, or edema. No obvious deformities. NEUROLOGICAL: Awake and alert. No obvious cranial nerve deficits. Motor grossly within normal limits. Five out of 5 muscle strength in the arms and legs. Normal speech. PSYCHIATRIC: Appropriate mood and affect; insight and judgment normal. Laboratory Laboratory Tests Test 02/17/17 09:30 White Blood Count 13.5 TH/MM3 Red Blood Count 3.66 MIL/MM3 Hemoglobin 7.6 GM/DL Hematocrit 24.8 % Mean Corpuscular Volume 67.6 FL Mean Corpuscular Hemoglobin 20.8 PG Mean Corpuscular Hemoglobin 30.7 % Concent Red Cell Distribution Width 16.3 % Platelet Count 414 TH/MM3 Mean Platelet Volume 8.0 FL Neutrophils (%) (Auto) 80.3 % Lymphocytes (%) (Auto) 7.6 % Monocytes (%) (Auto) 8.6 % Eosinophils (%) (Auto) 3.1 % Basophils (%) (Auto) 0.4 % Neutrophils # (Auto) 10.9 TH/MM3 Lymphocytes # (Auto) 1.0 TH/MM3 Monocytes # (Auto) 1.2 TH/MM3 Eosinophils # (Auto) 0.4 TH/MM3 Basophils # (Auto) 0.1 TH/MM3 CBC Comment DIFF FINAL Differential Comment Sodium Level 137 MEQ/L Potassium Level 4.9 MEQ/L Chloride Level 93 MEQ/L Carbon Dioxide Level 30.8 MEQ/L Anion Gap 13 MEQ/L Blood Urea Nitrogen 83 MG/DL Creatinine 8.99 MG/DL Estimat Glomerular Filtration 5 ML/MIN Rate Random Glucose 189 MG/DL Calcium Level 7.8 MG/DL Assessment and Plan Problem List: (1) Cholecystitis (2) Anemia (3) Acute kidney failure (4) Stage 4 chronic kidney disease (5) Diabetes mellitus (6) CHF (congestive heart failure) (7) Cardiomyopathy Assessment and Plan 1) SOB Possible due to decompensated CHF Weights have gone up as creatinine has gone up as well as decreased urine output For HD today, fluid management per nephrology 2) If oxygen demand is not decreased after HD and weights down, then may need to look for other causes Just recently placed on heparin, US LE negative for DVT Possible CT to see if pleural effusion could be drained? 3) Cardiomyopathy of unknown cause, never evaluated Not the best candidate for revascularization with comorbidities and cholecystomy tube Will get through initial illness, and further discuss but most likely medical management Problem Qualifiers (1) Anemia: Chin Hernandez DO Feb 17, 2017 11:38
--- NOTE | 2017-02-17 13:26 | HHI.IDPN ---
Subjective Subjective Remarks Ms. Rg is a 66 y/o CF with PMHx of hypertension, congestive heart failure with a last Echo 12/17/16 w/ EF 30-35%), chronic kidney disease stage IV, Chronic Anemia and Thalassemia who presented to the ER w/ complaints of abdominal pain, nausea and vomiting since the night prior to admission. Denied fever, chills or diarrhea. On arrival, BP 150/72, HR 97, O2 sat 99% on RA, Temp 99.0. CBC at baseline. Creatinine 2.75, previously 3.04 on 12/29/16. LFTs mildly elevated comparison to previous. UA negative. CT Abd/Pelvis w/ abnormal gallbladder, markedly distended gallbladder with wall thickening and mild induration of pericholecystic fat concerning for cholecystitis, so she underwent cholecystostomy tube placement 02/06/2017. She was admitted postprocedure to medical surgical floor. She was found to be slightly hypotensive and hypothermic with a temperature 96.2. Critical-care medicine was consulted for sepsis. Patient was transferred to ICU seen by Reconciler in addition. Started on Bumex gtt and eventually needed to be placed on HD using a HD catheter. Patient was started on empiric antibiotics and continues to be on Zosyn IV. General surgery is following her. Patient is now transferred to the floor. ID is consulted for new fevers while on antibiotics. Patient has a cholecystostomy tube in place. She also has a HD catheter in place. Fevers started on 02/14/2017 but without any change in regimen appear to be resolving. Overnight events reviewed. Case discussed with Dr. Godoy Overall appears to be much stronger than days before. Trying to eat on her own. Calorie count being maintained. Low-grade fevers off and on but overall does not appear to be acutely dealing with an infectious process. Surgery assigned of not surgical candidate per their notes. No rash no diarrhea Antibiotics Zosyn IV Lines Line sites with no e.o infection Past Medical History Sickle-cell anemia trait Thalassemia trait Anemia of chronic renal insufficiency Monoclonal gammopathy of unknown significance. Sickle-cell trait. Thalassemia trait. Chronic microcytic anemia. End-stage renal failure. Anemia of chronic renal insufficiency. Diabetes Diabetic retinopathy Hypertension Obesity Osteoarthritis Past Surgical History 1. Cataract surgery 2. Colonoscopies Allergies: Coded Allergies: Lisinopril (Unverified Allergy, Intermediate, Cough, 01/19/17) Objective . Vital Signs Date Time Temp Pulse Resp B/P Pulse Ox O2 Delivery O2 Flow Rate FiO2 02/17/17 12:00 97.3 75 20 138/63 98 02/17/17 09:35 97 Partial Rebreather 15.00 02/17/17 08:00 97.5 73 20 123/60 98 02/17/17 05:31 98.0 75 18 130/62 97 02/17/17 00:25 97.7 73 18 144/63 98 02/16/17 23:35 98 Non-Rebreather 13.00 02/16/17 20:49 97.6 73 18 159/67 98 02/16/17 20:00 72 02/16/17 18:06 Partial Rebreather 13.00 02/16/17 16:00 98.0 75 20 128/87 95 02/16/17 02/16/17 02/17/17 15:00 23:00 07:00 Output Total 400 ml 400 ml Balance -400 ml -400 ml Output Urine Total 400 ml 400 ml # Bowel Movements 1 1 . Laboratory Tests Test 02/16/17 02/17/17 08:58 09:30 White Blood Count 15.5 TH/MM3 13.5 TH/MM3 Red Blood Count 4.04 MIL/MM3 3.66 MIL/MM3 Hemoglobin 8.4 GM/DL 7.6 GM/DL Hematocrit 27.2 % 24.8 % Mean Corpuscular Volume 67.2 FL 67.6 FL Mean Corpuscular Hemoglobin 20.7 PG 20.8 PG Mean Corpuscular Hemoglobin 30.8 % 30.7 % Concent Red Cell Distribution Width 16.3 % 16.3 % Platelet Count 413 TH/MM3 414 TH/MM3 Mean Platelet Volume 8.2 FL 8.0 FL Neutrophils (%) (Auto) 84.6 % 80.3 % Lymphocytes (%) (Auto) 5.8 % 7.6 % Monocytes (%) (Auto) 8.3 % 8.6 % Eosinophils (%) (Auto) 1.1 % 3.1 % Basophils (%) (Auto) 0.2 % 0.4 % Neutrophils # (Auto) 13.1 TH/MM3 10.9 TH/MM3 Lymphocytes # (Auto) 0.9 TH/MM3 1.0 TH/MM3 Monocytes # (Auto) 1.3 TH/MM3 1.2 TH/MM3 Eosinophils # (Auto) 0.2 TH/MM3 0.4 TH/MM3 Basophils # (Auto) 0.0 TH/MM3 0.1 TH/MM3 CBC Comment DIFF FINAL DIFF FINAL Differential Comment Laboratory Tests Test 02/16/17 02/17/17 08:58 09:30 Sodium Level 137 MEQ/L 137 MEQ/L Potassium Level 4.7 MEQ/L 4.9 MEQ/L Chloride Level 96 MEQ/L 93 MEQ/L Carbon Dioxide Level 27.2 MEQ/L 30.8 MEQ/L Anion Gap 14 MEQ/L 13 MEQ/L Blood Urea Nitrogen 66 MG/DL 83 MG/DL Creatinine 7.66 MG/DL 8.99 MG/DL Estimat Glomerular Filtration 6 ML/MIN 5 ML/MIN Rate Random Glucose 165 MG/DL 189 MG/DL Calcium Level 8.0 MG/DL 7.8 MG/DL Microbiology Date/Time Procedure Status Source Growth 02/14/17 16:40 Urine Culture - Final Complete Urine Clean Catch 50-100,000 CFU/ML MIXED GRAM POSITIVE... Imaging Last Impressions Lower Extremity Ultrasound 02/16/17 0000 Signed Impressions: Service Date/Time: Thursday, February 16, 2017 20:41 - CONCLUSION: Negative exam. No evidence of deep venous thrombosis. Kevin Sofia MD Chest X-Ray 02/16/17 0000 Signed Impressions: Service Date/Time: Thursday, February 16, 2017 06:18 - CONCLUSION: Stable exam with bilateral pleural effusions and overlying atelectasis. Mariana Atkins MD Abdomen X-Ray 02/14/17 0000 Signed Impressions: Service Date/Time: Tuesday, February 14, 2017 14:20 - CONCLUSION: 1. No bowel obstruction or ileus. 2. Degenerative changes involving the lumbar and lower thoracic spine. Sadi Chilel MD Catheter Placement X-Ray 02/09/17 0000 Signed Impressions: Service Date/Time: Thursday, February 09, 2017 15:10 - CONCLUSION: Uncomplicated line placement as above. Kolby Hughes Jr., MD Percutaneous Cholangiogram 02/06/17 0000 Signed Impressions: Service Date/Time: Monday, February 06, 2017 15:15 - CONCLUSION: Uncomplicated percutaneous cholecystostomy as above. Thick inspissated bile was noted. The drainage is fairly low given the size of the gallbladder and therefore a CT will be performed to confirm appropriate positioning of the cholecystostomy tube. Kolby Hughes Jr., MD Abdomen CT 02/06/17 0000 Signed Impressions: Service Date/Time: Monday, February 06, 2017 16:21 - CONCLUSION: Interval cholecystostomy tube placement. Worsening parenchymal disease in the lung bases. eNy Lutz MD Abdomen/Pelvis CT 02/05/17 1656 Signed Impressions: Service Date/Time: January 18:15 - CONCLUSION: 1. Gallbladder is abnormal. It is markedly distended with gallbladder wall thickening and mild induration of the pericholecystic fat concerning for cholecystitis. High attenuation within the gallbladder lumen may be related to sludge or clot. 2. Left basilar atelectasis and tiny left effusion. Juan De Souza MD Gall Bladder Ultrasound 02/05/17 0000 Signed Impressions: Service Date/Time: , February 05, 2017 20:39 - CONCLUSION: 1. The gallbladder is abnormal with findings corresponding to the findings on the CT exam. There is wall thickening, marked distention and the lumen is occupied by echogenic shadowing material which may reflect sludge or hemorrhage. A few stones are suspected. Juan De Souza MD Physical Exam GENERAL: Obese, AAF patient, in no apparent distress. SKIN: No rashes, ecchymoses or lesions. Cool and dry. HEAD: Atraumatic. Normocephalic. No temporal or scalp tenderness. EYES: Pupils equal round and reactive. Extraocular motions intact. No scleral icterus. No injection or drainage. ENT: Nose without bleeding, purulent drainage or septal hematoma. Throat without erythema, tonsillar hypertrophy or exudate. Uvula midline. Airway patent. NECK: Trachea midline. Large neck. Supple, nontender, no meningeal signs. CARDIOVASCULAR: ? systolic murmur. RESPIRATORY: Clear to auscultation. Breath sounds equal bilaterally but decreased in bases/. GASTROINTESTINAL: Abdomen soft, non-tender, nondistended. RUQ cholecystostomy tube in place. MUSCULOSKELETAL: Extremities without clubbing, cyanosis, or edema. No joint tenderness, effusion, or edema noted. No calf tenderness. Negative Homans sign bilaterally. NEUROLOGICAL: Awake and alert.Grossly non focal Psych cooperative HD cath site with no e.o infection Assessment & Plan Remarks Acute cholecystitis New fever and leucocytosis (appears stable and defervescing without change in RX ) SIRS could be from infectious or non infectious etiologies. Possible drug fever Recs Discontinue Zosyn IV possible drug fever CXR c/w pulm edema and pleural effusion. Doppler lower extremity negative. Reconsult palliative care for determining goals of therapy. surgical candidate, now on hemodialysis and appears to be doing fairly okay at present time but at risk for readmissions in the future. d.w Follow clinically if fevers defervesce after Zosyn stopped than likely this was a drug fever if fevers persist please call me back. Usha Velarde MD Feb 17, 2017 13:26
--- NOTE | 2017-02-17 13:56 | HHI.PR ---
Objective Vitals Vital Signs Date Time Temp Pulse Resp B/P Pulse Ox O2 Delivery O2 Flow Rate FiO2 02/17/17 12:00 97.3 75 20 138/63 98 02/17/17 09:35 97 Partial Rebreather 15.00 02/17/17 08:00 97.5 73 20 123/60 98 02/17/17 05:31 98.0 75 18 130/62 97 02/17/17 00:25 97.7 73 18 144/63 98 02/16/17 23:35 98 Non-Rebreather 13.00 02/16/17 20:49 97.6 73 18 159/67 98 02/16/17 20:00 72 02/16/17 18:06 Partial Rebreather 13.00 02/16/17 16:00 98.0 75 20 128/87 95 I/O 02/16/17 02/16/17 02/16/17 02/17/17 02/17/17 02/17/17 07:00 15:00 23:00 07:00 15:00 23:00 Output Total 0 ml 400 ml 400 ml Balance 0 ml -400 ml -400 ml Output Urine Total 400 ml 400 ml Drainage Total 0 ml # Bowel Movements 1 1 07 20 Result Diagram: 02/17/1792902/17/1730 Objective Remarks GENERAL: appears tired however she does look more alert today NECK: trachea midline. CARDIOVASCULAR: Regular rate and regular rhythm with 1-2SEM murmurs RESPIRATORY: Minimal crackles at the bases. decrease breath sounds bilaterally. GASTROINTESTINAL: Abdomen soft, hypoactive bowel sounds, some discomfort w deep palpation throughout. cholecystostomy tube noted. . NEURO: More alert today. answers some questions. Psych: pleasant but is quiet Procedures Vas-Cath placement per IR cholecystostomy tube placement A/P Problem List: (1) Cholecystitis ICD Code: K81.9 Status: Acute (2) Elevated LFTs ICD Code: R79.89 Status: Acute (3) Renal insufficiency ICD Code: N28.9 Status: Acute (4) CHF (congestive heart failure) ICD Code: I50.9 Status: Chronic (5) DM (diabetes mellitus) ICD Code: E11.9 Status: Acute Assessment and Plan Acute cholecystitis - Status post cholecystostomy tube placement by IR - on Zosyn. no fevers overnight. continue to encourage use of IS q1hr while awake. Urine culture negative. Infectious disease following, recommending to continue IV Zosyn for now. If she does spike a fever we'll get blood cultures. Also recommend getting ultrasound of lower extremities to rule out DVT as she is at high risk for it. Monitor leukocytosis. - continue pain control - Per general surgery, she is a poor sx candidate, they have signed off. - KUB neg for obstruction or ileus. Acute systolic CHF/Pulm Edema/pleural effusion: noted on x-ray. Pt on partial nonrebreather. on IV lasix 40mg daily, will continue. monitor pt closely. monitor kidney function as well. Caution because her creatinine is increasing. Nephrology following 2D ECHO, EF of 30-35%. will get cardiology for further eval and recs. continue IV lasix, fluid restrictions to 1500ml/d, low sodium diet. Acute on chronic kidney injury - Management per nephrology- s/pBumex infusion, sodium bicarbonate infusion discontinued 02/09 - 02/09 for Vas-Cath replacement- HD initiated. Hypotension-resolved -- likely secondary to sepsis and renal failure -- midodrine 10mg po tid Metabolic acidosis - Due to kidney injury - Treated underlying condition Diabetes mellitus - Levemir and insulin sliding scale Chronic pain syndrome Insomnia -Melatonin 5 mg by mouth daily at bedtime PRN for insomnia -continue pain control. Mild protein calorie Malnutrition -Nutrition consult -Calorie count was completed on thursday but apparently no meals were being recorded. Calory count has been restarted. Discussed w RN, nursing staff to help pt order meals as she doesn't like what on the automatic tray. family to assist w this as well. anemia of chronic disease hematology evaluation appreciated and started on Epogen and IV iron. will monitor H/H. DVT prophylaxis - Teds SCDs Discharge Planning calorie count re-ordered. ID following cardiology consult in place. Daughter Johanny would like to be called/updated when major updates occur [phone] Kate Godoy MD Feb 17, 2017 13:56
--- NOTE | 2017-02-17 14:34 | HHI.PR ---
Subjective Remarks Pt states she feels ok. No worsening SOB. Still has abdominal pain but doesn't bother her unless one presses on it. Going for HD Per RN, pt is eating better Objective Vitals Vital Signs Date Time Temp Pulse Resp B/P Pulse Ox O2 Delivery O2 Flow Rate FiO2 02/17/17 12:00 97.3 75 20 138/63 98 02/17/17 09:35 97 Partial Rebreather 15.00 02/17/17 08:00 97.5 73 20 123/60 98 02/17/17 05:31 98.0 75 18 130/62 97 02/17/17 00:25 97.7 73 18 144/63 98 02/16/17 23:35 98 Non-Rebreather 13.00 02/16/17 20:49 97.6 73 18 159/67 98 02/16/17 20:00 72 02/16/17 18:06 Partial Rebreather 13.00 02/16/17 16:00 98.0 75 20 128/87 95 I/O 02/16/17 02/16/17 02/16/17 02/17/17 02/17/17 02/17/17 07:00 15:00 23:00 07:00 15:00 23:00 Output Total 0 ml 400 ml 400 ml Balance 0 ml -400 ml -400 ml Output Urine Total 400 ml 400 ml Drainage Total 0 ml # Bowel Movements 1 1 1 1 Result Diagram: 02/17/1730 02/17/17 0930 Imaging Last Impressions Lower Extremity Ultrasound 02/16/17 0000 Signed Impressions: Service Date/Time: Thursday, February 16, 2017 20:41 - CONCLUSION: Negative exam. No evidence of deep venous thrombosis. Kevin Sofia MD Chest X-Ray 02/16/17 0000 Signed Impressions: Service Date/Time: Thursday, February 16, 2017 06:18 - CONCLUSION: Stable exam with bilateral pleural effusions and overlying atelectasis. Mariana Atkins MD Abdomen X-Ray 02/14/17 0000 Signed Impressions: Service Date/Time: Tuesday, February 14, 2017 14:20 - CONCLUSION: 1. No bowel obstruction or ileus. 2. Degenerative changes involving the lumbar and lower thoracic spine. Sadi Chilel MD Catheter Placement X-Ray 7/24/17 0000 Signed Impressions: Service Date/Time: Thursday, February 09, 2017 15:10 - CONCLUSION: Uncomplicated line placement as above. Kolby Hughes Jr., MD Percutaneous Cholangiogram 02/06/17 Signed Impressions: Service Date/Time: Monday, February 06, 2017 15:15 - CONCLUSION: Uncomplicated percutaneous cholecystostomy as above. Thick inspissated bile was noted. The drainage is fairly low given the size of the gallbladder and therefore a CT will be performed to confirm appropriate positioning of the cholecystostomy tube. Kolby Hughes Jr., MD Abdomen CT 02/06/17 Signed Impressions: Service Date/Time: Monday, February 06, 2017 16:21 - CONCLUSION: Interval cholecystostomy tube placement. Worsening parenchymal disease in the lung bases. Ney Lutz MD Abdomen/Pelvis CT 02/05/17 165 Signed Impressions: Service Date/Time: January 18:15 - CONCLUSION: 1. Gallbladder is abnormal. It is markedly distended with gallbladder wall thickening and mild induration of the pericholecystic fat concerning for cholecystitis. High attenuation within the gallbladder lumen may be related to sludge or clot. 2. Left basilar atelectasis and tiny left effusion. Juan De Souza MD Gall Bladder Ultrasound 02/05/17 Signed Impressions: Service Date/Time: January 20:39 - CONCLUSION: 1. The gallbladder is abnormal with findings corresponding to the findings on the CT exam. There is wall thickening, marked distention and the lumen is occupied by echogenic shadowing material which may reflect sludge or hemorrhage. A few stones are suspected. Juan De Souza MD Objective Remarks GENERAL: appears tired but is alert NECK: trachea midline. CARDIOVASCULAR: Regular rate and regular rhythm with 1-2SEM murmurs RESPIRATORY: Minimal crackles at the bases. decrease breath sounds bilaterally. GASTROINTESTINAL: Abdomen soft, hypoactive bowel sounds, some discomfort w deep palpation throughout. cholecystostomy tube noted. . NEURO: More alert today. answers some questions. Psych: pleasant but is quiet Procedures Vas-Cath placement per IR cholecystostomy tube placement A/P Problem List: (1) Cholecystitis ICD Code: K81.9 Status: Acute (2) Elevated LFTs ICD Code: R79.89 Status: Acute (3) Renal insufficiency ICD Code: N28.9 Status: Acute (4) CHF (congestive heart failure) ICD Code: I50.9 Status: Chronic (5) DM (diabetes mellitus) ICD Code: E11.9 Status: Acute Assessment and Plan Acute cholecystitis - Status post cholecystostomy tube placement by IR - off Zosyn per ID. discussed w Dr. Velarde, monitor temps while off abx. Concerned for drug fever. continue to encourage use of IS q1hr while awake. Urine culture negative. If she does spike a fever we'll get blood cultures and notify ID. ultrasound of lower extremities neg for DVT. Monitor leukocytosis. - continue pain control - Per general surgery, she is a poor sx candidate, they have signed off. - KUB neg for obstruction or ileus. Acute systolic CHF/Pulm Edema/pleural effusion: noted on x-ray. Pt on partial nonrebreather. on IV lasix 40mg daily, will continue. monitor pt closely. monitor kidney function as well. Caution because her creatinine is increasing. Nephrology following 2D ECHO, EF of 30-35%. cardiology evaluated the pt. added ASA. per cards pt not the best candidate for revascularization with comorbidities and cholecystomy tube, for now medical management until all other causes of cardiomyopathy ruled out. continue IV lasix , fluid restrictions to 1500ml/d, low sodium diet. check u/s chest to see if pleural effusions can be drained. ? pulm consult. Acute on chronic kidney injury - Management per nephrology- s/p Bumex infusion, sodium bicarbonate infusion discontinued 02/09 - 02/09 for Vas-Cath replacement- HD initiated. Hypotension-resolved -- likely secondary to sepsis and renal failure -- midodrine 10mg po tid Metabolic acidosis - Due to kidney injury - Treated underlying condition Diabetes mellitus - Levemir and insulin sliding scale Chronic pain syndrome Insomnia -Melatonin 5 mg by mouth daily at bedtime PRN for insomnia -continue pain control. Mild protein calorie Malnutrition -Nutrition consult -Calorie count was completed on thursday but apparently no meals were being recorded. Calory count has been restarted. Discussed w RN, nursing staff to help pt order meals as she doesn't like what on the automatic tray. family to assist w this as well. anemia of chronic disease hematology evaluation appreciated and started on Epogen and IV iron. will monitor H/H. DVT prophylaxis - Teds SCDs/heparin Discharge Planning calorie count in progress since thursday ID has signed off. if fevers, get blood cx and reconsult ID cardiology following. u/s chest to see if pleural effusion can be drained. Palliative care consulted for assistance w goals of care Daughter Johanny would like to be called/updated when major updates occur . She assist family/patient to make most medical decisions. Kate Godoy MD Feb 17, 2017 14:34
--- NOTE | 2017-02-17 16:09 | HHI.HCPN ---
Consult received. Records reviewed. I attempted to see patient 2, patient off the floor in dialysis. Discussed briefly by telephone with daughter Johanny -- family meeting is set for Thursday , 1 PM. Full consult to follow. Margot Andrea MD Feb 17, 2017 16:09
--- NOTE | 2017-02-17 17:05 | HHI.NPPN ---
Subjective History of Present Illness 66-year-old female with a past medical history of hypertension, diabetes mellitus, chronic kidney disease, anemia and chronic back pain, who was admitted because of abdominal pain, nausea and vomiting. I was called to see the patient because of elevated BUN and creatinine. The patient has known history of chronic kidney disease and she had acute kidney injury. Additional Remarks Patient seen during HD, has mild SOB. Objective Data Data 02/16/17 02/17/17 18:59 06:59 Output Total 400 ml 400 ml Balance -400 ml -400 ml Output Urine Total 400 ml 400 ml # Bowel Movements 1 1 Vital Signs Date Time Temp Pulse Resp B/P Pulse Ox O2 Delivery O2 Flow Rate FiO2 02/17/17 12:00 97.3 75 20 138/63 98 02/17/17 09:35 97 Partial Rebreather 15.00 02/17/17 08:00 97.5 73 20 123/60 98 02/17/17 05:31 98.0 75 18 130/62 97 02/17/17 00:25 97.7 73 18 144/63 98 02/16/17 23:35 98 Non-Rebreather 13.00 02/16/17 20:49 97.6 73 18 159/67 98 02/16/17 20:00 72 02/16/17 18:06 Partial Rebreather 13.00 -: 02/17/17 0930 02/17/17 0930 Physical Exam General Appearance: Anxious Eyes Eye Exam: Pupils Equal Throat Throat Exam: Oral Mucosa [place] & Moist Neck Neck Exam: Neck Supple Pulmonary Resp Exam: Breath Sounds Equal, No Distress, Rhonchi, Decreased Bases Cardiology CV Exam: Regular, Normal Sinus Rhythm Gastrointestinal/Abdomen GI Exam: Soft, Bowel Sounds Present, Distended Extremeties Extremities Exam: Trace Edema Neurologic Neuro Exam: Alert, Awake, Oriented Psychiatric Psych Exam: Appropriate Responses Assessment/Plan Assessment Summary: GRADY/Acute Renal Failure, Hypotension, CKD Stage IV Problem List: (1) Diabetes mellitus (2) CHF (congestive heart failure) (3) Cholecystitis (4) Gallstones (5) Elevated LFTs (6) Anemia (7) Stage 4 chronic kidney disease (8) Acute kidney failure Plan Has been non oliguric, Creatinine still elevated. Most likely has ATN due to hypotension causing GRADY. Continue antibiotics. On Epogen with HD. HD now, removing 2.5 liters, BP dropped, Vascath has poor flow, will get it changed tomorrow. Problem Qualifiers (1) Anemia: Svitlana Cook MD Feb 17, 2017 17:05
[2017-02-17] MEDS: MORPHINE SULFATE 4 MG/ML INJ IV PRN (17:57)
--- NOTE | 2017-02-17 23:22 | RADRPT ---
EXAM DATE/TIME: 02/17/2017 22:18 [facility] COMPARISON: CHEST SINGLE AP, February 16, 2017, 6:18. INDICATIONS : Shortness of breath. MEDICAL HISTORY : Hypercholesterolemia. Hyperlipidemia. Chest pain. HTN. Blood transfusions. Abdominal pain. Stage IV renal disease. Diabetes. Sickle cell trait. Anemia. Pernicious. Thalasemia. SURGICAL HISTORY : Cataract extraction. Bilateral eye prosthesis. ENCOUNTER: Initial ACUITY: 1 day PAIN SCORE: 7/10 LOCATION: Right chest MEASUREMENTS: SKIN TO PARIETAL PLEURA: 4.1 cm SKIN TO MAX SAFE DEPTH: 5.3 cm ESTIMATED FLUID VOLUME: 252 cc FLUID COMPOSITION: simple FINDINGS: Pleural effusion as above. A sarahy was placed on the skin surface superficial to the pleural fluid col lection. CONCLUSION: Small right pleural effusion estimated at 252 cc. Kevin Sofia MD on February 17, 2017 at 23:19 Board Certified Radiologist. This report was verified electronically.
[2017-02-18] VITALS (8 sets, daily range): BP systolic 138–174; BP diastolic 62–80; PULSE 69–92; RESP 18–20; TEMP 97.6–99; O2SAT 96–99
[2017-02-18] MEDS: INSULIN ASPART SUPPLEMENTAL SCALE SQ SCH ×3 (06:26→22:54)
[2017-02-18] MEDS: MIDODRINE 5 MG TAB PO SCH ×3 (06:29→16:27)
--- NOTE | 2017-02-18 09:39 | PD.RAD ---
Post Procedure Progress Note Pre Procedure Diagnosis: (1) Complications, dialysis, catheter, mechanical Post Procedure Diagnosis: (1) Complications, dialysis, catheter, mechanical Procedure Date: Feb 18, 2017 Supervising Radiologist: Kolby Hughes JR Proceduralist/Assist: Frank Osman RT(R), Ronald Perez RT(R) Anesthesia: Local Plan of Activity Patient to Unit: Nursing Unit Patient Condition: Good See PACS Report for procedural detail/treatment Central Venous Access Device Procedure 1 Right Internal Jugular Hemodialysis Catheter Non-Tunneled Replacement dual lumen Serbian: 14 Findings: Original Vascath in appropriate position. Flow rates slightly reduced. Exchanged for a new Vascath. Better flow rates noted. Jr. Saul,Kolby Moore MD Feb 18, 2017 09:39
--- NOTE | 2017-02-18 11:18 | RADRPT ---
EXAM DATE/TIME: 02/18/2017 09:29 [place] COMPARISON: No previous studies available for comparison. INDICATIONS : Patient presents with chronic renal failure in need of dialysis catheter exchange due to poor blood f low through existing Vas-Cath. MEDICAL HISTORY : HTN CHF CKD Stage IV Chronic Anemia Thalassemia SURGICAL HISTORY : Eye Surgery ENCOUNTER: Subsequent ACUITY: 2 weeks PAIN SCORE: 0/10 LOCATION: N/A FLUORO TIME: 0.16 minutes IMAGE SERIES: 0 DEVICE(S): 1.) 14 Portuguese dual lumen 15 cm Schon catheter PROCEDURE : 1. Fluoroscopically guided central venous catheter exchange. The risks, benefits and alternatives to the procedure were explained and verbal and written consent w as obtained. The site was prepped in sterile fashion. Full sterile technique was used, including ca p, mask, sterile gloves and gown and a large sterile sheet. Hand hygiene and 2% chlorhexidine prep w as utilized per protocol for cutaneous antisepsis with appropriate dry time for site. The skin and s ubcutaneous tissues were infiltrated with local anesthetic solution. Aspiration of the heparin was performed in each lumen of the existing catheter. This was discarded. A spiration of the lumens of the catheter show a slight reduction in the flow of both lumens. The tip o f the catheter is in the appropriate position. With fluoroscopic guidance a previously placed central venous catheter was exchanged for the prescrib ed catheter as above. Post procedure image demonstrates satisfactory position of the tube. The cath eter was sutured in place. CONCLUSION: Uncomplicated venous catheter change as above. Kolby Hughes Jr., MD on February 18, 2017 at 11:15 Board Certified Radiologist. This report was verified electronically.
[2017-02-18] MEDS: FUROSEMIDE 40 MG/4 ML VIAL IV PUSH SCH (11:30)
[2017-02-18] MEDS: ASPIRIN 81 MG CHEW TAB CHEW SCH (11:30)
[2017-02-18] MEDS: CARVEDILOL 3.125 MG TAB PO SCH ×2 (11:30→22:42)
[2017-02-18] MEDS: DOCUSATE SODIUM 50 MG/SENNA 8.6 MG TAB PO SCH ×2 (11:31→22:41)
[2017-02-18] MEDS: HEPARIN SODIUM - SQ 10,000 UNITS/ML VIAL SQ SCH ×2 (11:46→22:43)
[2017-02-18] MEDS: INSULIN DETEMIR 100 UNITS/ML VIAL SQ SCH (12:00)
[2017-02-18 12:35] LABS: AUTOMATED NEUTROPHIL # 11.2 TH/MM3 (1.8-7.7); BASOPHIL # 0.1 TH/MM3 (0-0.2); BASOPHIL % 0.4 % (0.0-2.0); EOSINOPHIL # 0.5 TH/MM3 (0-0.4); EOSINOPHIL % 3.4 % (0.0-4.0); HEMATOCRIT 26.4 % (35.0-46.0); HEMO FLAGS DIFF FINAL; LYMPH % 9.5 % (9.0-44.0); LYMPHOCYTE # 1.4 TH/MM3 (1.0-4.8); MEAN CELL VOLUME 67.6 FL (80.0-100.0); MEAN CORPUSCULAR HEMOGLOBIN 20.8 PG (27.0-34.0); MEAN CORPUSCULAR HGB CONC 30.8 % (32.0-36.0); MONO % 8.1 % (0.0-8.0); NEUT % 78.6 % (16.0-70.0); PLATELET COUNT 454 TH/MM3 (150-450); RED CELL DISTRIBUTION WIDTH 16.4 % (11.6-17.2); WHITE BLOOD COUNT 14.3 TH/MM3 (4.0-11.0)
[2017-02-18 13:05] LABS: BICARBONATE 30.6 MEQ/L (21.0-32.0); POTASSIUM 5.2 MEQ/L (3.5-5.1)
--- NOTE | 2017-02-18 13:39 | HHI.PR ---
Objective Vital Signs Date Time Temp Pulse Resp B/P Pulse Ox O2 Delivery O2 Flow Rate FiO2 02/18/17 11:41 98.3 88 20 174/74 99 02/18/17 08:00 97.6 85 18 140/65 98 02/18/17 04:00 98.3 83 20 139/62 99 02/18/17 00:00 99.0 92 20 153/67 96 02/17/17 23:30 Non-Rebreather 02/17/17 20:00 98.0 91 20 166/71 98 02/17/17 18:03 98.0 87 20 111/72 98 I/O 02/17/17 02/17/17 02/17/17 02/18/17 02/18/17 02/18/17 07:00 15:00 23:00 07:00 15:00 23:00 Intake Total 240 ml Output Total 400 ml 2650 ml 100 ml Balance -400 ml -2410 ml -100 ml Intake Oral 240 ml Output Urine Total 400 ml 250 ml 100 ml Hemodialysis 2400 ml # Bowel Movements 1 1 1 1 Result Diagram: 02/18/17 1128 02/18/17 1128 Procedures None A/P Problem List: (1) Cholecystitis ICD Code: K81.9 (2) Anemia ICD Code: D64.9 (3) Acute kidney failure ICD Code: N17.9 (4) Stage 4 chronic kidney disease ICD Code: N18.4 (5) Diabetes mellitus ICD Code: 250.00 (6) Cholecystostomy care ICD Code: Z43.4 (7) Cardiomyopathy ICD Code: I42.9 (8) Complications, dialysis, catheter, mechanical ICD Code: T82.49XA (9) Gallstones ICD Code: K80.20 (10) Elevated LFTs ICD Code: R79.89 (11) DM (diabetes mellitus) ICD Code: E11.9 (12) Renal insufficiency ICD Code: N28.9 (13) CHF (congestive heart failure) ICD Code: I50.9 Assessment and Plan Assessment and plan 66-year-old female admitted secondary to cholecystitis. Complications of acute renal failure, anemia, CHF, pleural effusion. Now status post cholecystectomy with drain. Acute cholecystitis Status post cholecystostomy tube placement by IR Now off Zosyn Follow urine cultures Monitor for any fevers Follow CBC Continue pain control Continue postop wound care Monitor biliary drain output Acute systolic CHF Pulm Edema pleural effusion: 40 mg IV Lasix daily 2D ECHO, EF of 30-35%. Daily aspirin Low sodium diet Monitor pleural effusions Pulmonology consulted Cardiology following Acute on chronic kidney injury Metabolic acidosis secondary to acute renal failure Nephrology following Vas-Cath present Continue hemodialysis Hypotension Resolved Continue midodrine as needed Follow blood pressures Diabetes mellitus Insulin sliding scale Levemir Diabetic diet Follow blood sugars Chronic pain syndrome Insomnia Melatonin 5 mg by mouth daily at bedtime PRN for insomnia Continue as needed pain control treatments Mild protein calorie Malnutrition Calorie count ongoing Nutrition is consulted anemia of chronic disease Epogen and IV iron. Follow CBC DVT prophylaxis SCDs heparin Discharge Planning May need pleural effusion prior to discharge Daughter Johanny [phone] Problem Qualifiers (1) Anemia: Martinez Cordon MD Feb 18, 2017 13:39
--- NOTE | 2017-02-18 15:20 | PD.CONS ---
Consult Service Palliative Care Consult Requested By Dr. Sarah Velarde . Primary Care Physician Unknown . Reason for Consultation a. To assist with evaluation and management of symptoms including: Pain, dyspnea b. To assist medical decision maker(s) with: better understanding of current medical conditions; weighing benefits/burdens of medical treatment options; making medical treatment decisions. . HPI History of Present Illness This 66-year-old female, with a past history of diabetes with neuropathy, cardiomyopathy, CHF, CKD stage IV, and anemia, was admitted to this facility 2 months ago because of nausea/vomiting/diarrhea, and was sent to a rehabilitation facility for a couple weeks. She had lost quite a bit of strength in the hospital, but was regaining that strength when she started feeling ill again in mid January. By 02/05/17, she was having vomiting and worsening upper abdominal pain with radiation into her back, and she returned to the emergency department. In the emergency department, findings included: * Temp 99.0, pulse 97, respirations 24, blood pressure 158/72, oxygen saturation 99% on room air * White count 9.8, hemoglobin 9.9 * Sodium 139, creatinine 2.75, albumin 3.4, protein 8.8 * ALT 155, AST 63 * CT scan of the abdomen revealed a distended and inflamed gallbladder The patient was admitted, antibiotics were begun, and she was placed in intensive care. She has signs of sepsis and shock, and a cholecystostomy tube was placed on 02/06/17. Her renal function worsened, and her creatinine was 5.86 x 02/07/17. She was still having signs of septic shock on that date, and by 02/09/17 her creatinine was 8.74. A Vas-Cath was placed and dialysis was initiated. The blood cultures obtained on admission remained negative. By 02/12, the patient was transferred to the medical floor, but within a couple days had developed new fever. By 02/15/17, the patient had more dyspnea, and she has been on a nonrebreather the past 2 or 3 days. The patient had not been eating much the first few days in the hospital, but the family reports her oral intake has improved the past 4 or 5 days. The patient's family reports that the patient told them yesterday that she had seen angels and that she was sure that she was "not going to make it out of here." The patient has become profoundly weak, and Palliative Care was consulted to assist with symptom management, and to enter into discussions with the patient and family regarding her current illnesses, the prognosis, and the benefits and burdens of the various treatment options. . Function/Cognitive Trajectory Following her hospitalization and rehab stay in the past couple months, the patient had been regaining strength, and she was able to ambulate independently at home. She had remained clearheaded, and had been eating well. . Review of Systems Constitutional: COMPLAINS OF: Change in appetite, DENIES: Weight loss Endocrine: DENIES: Polydipsia Eyes: DENIES: Eye inflammation Ears, nose, mouth, throat: DENIES: Epistaxis Respiratory: COMPLAINS OF: Cough, Shortness of breath Cardiovascular: COMPLAINS OF: Dyspnea on Exertion, DENIES: Chest pain Gastrointestinal: COMPLAINS OF: Nausea, Vomiting, DENIES: Bloody stools, Constipation, Diarrhea, Vomiting blood Genitourinary: DENIES: Hematuria Musculoskeletal: DENIES: Back pain Integumentary: DENIES: Rash Hematologic/Lymphatics: DENIES: Bruising Immunologic/Allergic: DENIES: Urticaria Neurologic: DENIES: Localized weakness, Seizures Psychiatric: DENIES: Confusion, Hallucinations, Agitation Past Family Social History Coded Allergies: Lisinopril (Unverified Allergy, Intermediate, Cough, 01/19/17) Past Medical History * Sepsis, cholecystitis, with septic shock * Renal failure, on dialysis; possible ATN secondary to recent septic shock * Cardiomyopathy, CHF, EF 30% * Diabetes, long-standing, with neuropathy * Chronic pain, neuropathy * Anemia (history of sickle cell trait, thalassemia, and pernicious anemia) * Obesity * Hyperlipidemia * Hypertension * Degenerative joint disease . Past Surgical History PAST SURGICAL HISTORY: Eye Surgery, recent Vas-Cath . Reported Medications Lantus Solostar Pen Inj (Insulin Glargine) 300 Unit/3 Ml Pen 20 Units SQ DAILY Blood Glucose Monitor (Blood-Glucose Meter) 1 Each Each Ea DAILY Oxycodone (Oxycodone HCl) 5 Mg Tab 5 Mg PO Q6H PRN Senna Plus 8.6-50 mg (Sennosides-Docusate Sodium) 1 Tab Tab 1 Tab PO BID Tessalon Perles (Benzonatate) 100 Mg Cap 100 Mg PO TID Ferosul (Ferrous Sulfate) 325 Mg Tablet 325 Mg PO BID Coreg (Carvedilol) 3.125 Mg Tab 3.125 Mg PO Q12HR Reported [iron infusion] Unknown Dose IV [id number] Procrit Inj (Epoetin Moreno) 10,000 Unit/Ml Inj Unknown Dose SQ 3XWEEK Tizanidine (Tizanidine HCl) 4 Mg Cap 4 Mg PO TID Baby Ddrops (Cholecalciferol) 400 Unit/0.03 Ml Liq 400 Units PO DAILY D 400 (Cholecalciferol) 400 Unit Chew Atropine 0.01%-Ns Eye Drops (Atropine Sulfate in 0.9% NaCl) 10 Ml Drops 0.01 Drop LEFT EYE BID D3 (Cholecalciferol) 1,000 Unit Cap Amlodipine (Amlodipine Besylate) 10 Mg Tab 10 Mg PO DAILY Glipizide 10 Mg Tab 10 Mg PO BIDAC . Current Medications Medications (Trade) Dose Ordered Sig/Lo Route Start Time Stop Time Status Last Admin (D50w (Vial) Inj) 50 ml UNSCH PRN IV 02/05/17 19:30 Glucagon 1 mg 1 mg UNSCH PRN OTHER 02/05/17 19:30 (NS 1000 ml Inj) 1,000 ml @ 50 mls/hr Q20H IV 02/05/17 19:16 Hold 02/06/17 04:19 (NS Flush) 2 ml UNSCH PRN IV FLUSH 02/05/17 19:30 (NS Flush) 2 ml BID IV FLUSH 02/05/17 21:00 02/17/17 22:00 (Zofran Inj) 4 mg Q6H PRN IVP 02/05/17 19:30 02/12/17 03:32 (Tylenol) 650 mg Q6H PRN PO 02/05/17 19:30 (Roxicodone) 5 mg Q4H PRN PO 02/05/17 19:30 02/12/17 22:10 (Terese-Colace) 1 tab BID PO 02/05/17 21:00 02/18/17 11:31 (Milk Of Magnesia Liq) 30 ml Q12H PRN PO 02/05/17 19:30 02/06/17 07:59 (Senokot) 17.2 mg Q12H PRN PO 02/05/17 19:30 (Dulcolax Supp) 10 mg DAILY PRN RECTAL 02/05/17 19:30 (Lactulose Liq) 30 ml DAILY PRN PO 02/05/17 19:30 02/06/17 17:46 (Norvasc) 10 mg DAILY PO 02/06/17 09:00 Hold 02/06/17 07:57 (Coreg) 3.125 mg Q12HR PO 02/05/17 21:00 02/18/17 11:30 (Zanaflex) 4 mg TID PO 02/06/17 09:00 02/18/17 11:46 (Levemir Inj) 10 units DAILY SQ 02/06/17 09:00 02/18/17 12:00 (Morphine Inj) 1 mg Q4HR PRN IV 02/06/17 12:00 02/17/17 17:57 (Proamatine) 10 mg TID@07,,17 PO 02/08/17 17:00 02/18/17 11:46 Miscellaneous Information Patient in critical care unit? Ass... Q361D .XX 02/08/17 23:00 (NS Flush) UNSCH PRN IVF 02/09/17 15:30 Heparin Sodium (Porcine) UNSCH PRN IV FLUSH 02/09/17 15:30 (NS 1000 ml Inj) 1,000 ml @ 0 mls/hr Q0M PRN IV 02/09/17 15:39 02/14/17 10:15 Heparin Sodium (Porcine) 8000 units 8,000 units UNSCH PRN IVF 02/09/17 15:45 Sodium Chloride 1,000 ml @ 200 mls/hr Q5H PRN IV 02/09/17 15:39 (NS 1000 ml Inj) 1,000 ml @ 0 mls/hr Q0M PRN IV 02/09/17 15:39 (Mannitol Inj) 12.5 gm UNSCH PRN IV 02/09/17 15:45 (Albumin 25% Inj) 25 gm UNSCH PRN IV 02/09/17 15:45 02/14/17 10:23 (NS Flush) 5 ml UNSCH PRN IV FLUSH 02/09/17 15:45 02/14/17 10:15 (Heparin Inj) UNSCH PRN .XX 02/09/17 15:45 02/14/17 10:14 (Gentamicin (Dialysis) Inj) 20 mg UNSCH PRN IV 02/09/17 15:45 02/14/17 10:14 (Zofran Inj) 4 mg UNSCH PRN IV 02/09/17 15:45 02/10/17 09:36 (Tylenol) 650 mg UNSCH PRN PO 02/09/17 15:45 (Benadryl) 25 mg UNSCH PRN PO 02/09/17 15:45 02/17/17 08:45 (Nitrostat Sl) 0.4 mg UNSCH PRN SL 02/09/17 15:45 (Catapres) 0.1 mg UNSCH PRN PO 02/09/17 15:45 (Gelfoam 12 Mm/7 Mm Top) 1 foam UNSCH PRN TOP 02/09/17 15:45 (Melatonin) 5 mg HS PRN PO 02/10/17 17:15 02/10/17 22:08 (Epogen Inj) 20,000 units UNSCH PRN IV 02/12/17 10:15 02/14/17 10:14 (Roxicodone) 10 mg Q4H PRN PO 02/13/17 11:15 02/17/17 08:46 (Lasix Inj) 40 mg DAILY IV PUSH 02/16/17 09:00 02/18/17 11:30 (Heparin Inj) 5,000 units Q12HR SQ 02/16/17 21:00 02/18/17 11:46 (Aspirin Chew) 81 mg DAILY CHEW 02/17/17 09:00 02/18/17 11:30 Family History The patient's mother at age 72 of complications of diabetes, and her father in his 70s of complications of a stroke. A niece had end-stage renal disease on dialysis, and the patient's daughter at age 39 of complications of sickle cell anemia. . Substance Use Tobacco: None Alcohol: None Prescription med abuse: None Illicits: None . Psychosocial History The patient was born here at [facility], and has lived in this area her entire life. She has currently been living with her . 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 She had 4 children, a daughter is . There are 2 living daughters and a son. . Spiritual/Cultural Factors Spirituality has been very important for the patient. She has been an active member of a local [employer]ominational christian, and her clergy has come to visit her and has been supportive for her and the family. . Living Will: Never completed Health Care Surrogate: Never completed Durable Power of Batch Weigher: Never completed Health Care Surrogate(s): The patient has designated her daughter Johanny as healthcare surrogate, and we will complete HCS paperwork. . Today's verbally stated goals: At this time, the patient wants to continue her current medical care, but is speaking with her family in the next day or 2 regarding resuscitation options. . Family/friends goals: Family supports the patient's wishes. . Ethical and Legal Issues There are no ethical issues that would impact her care or decision-making at this time. At this time, the patient has capacity for decision-making. The patient designates her daughter Johanny (nurse) as her healthcare surrogate. The rest of the family agrees. . Physical Exam Vital Signs Date Time Temp Pulse Resp B/P Pulse Ox O2 Delivery O2 Flow Rate FiO2 02/18/17 11:41 98.3 88 20 174/74 99 02/18/17 11:30 98 Partial Rebreather 15.00 02/18/17 08:00 97.6 85 18 140/65 98 02/18/17 04:00 98.3 83 20 139/62 99 02/18/17 00:00 99.0 92 20 153/67 96 02/17/17 23:30 Non-Rebreather 02/17/17 20:00 98.0 91 20 166/71 98 02/17/17 18:03 98.0 87 20 111/72 98 02/17/17 02/18/17 19:00 07:00 Intake Total 240 ml Output Total 2550 ml 200 ml Balance -2550 ml 40 ml Intake Oral 240 ml Output Urine Total 150 ml 200 ml Hemodialysis 2400 ml # Bowel Movements 1 2 Exam CONSTITUTIONAL/GENERAL: This is an adequately nourished but very weak appearing patient, in no apparent distress. TUBES/LINES/DRAINS: Nonrebreather, Vas-Cath, peripheral IV SKIN: No jaundice, rashes, or lesions. No wounds seen anteriorly. Skin temperature appropriate. Not diaphoretic. HEAD: Atraumatic. Normocephalic. EYES: Pupils equal and round and reactive. Extraocular motions intact. No scleral icterus. No injection or drainage. Fundi not examined. ENT: Hearing grossly normal. Nose without bleeding or purulent drainage. Throat without visible erythema, exudates, masses, or lesions. NECK: Trachea midline. Supple, nontender. No palpable thyroid enlargement or nodularity. CARDIOVASCULAR: Regular rate and rhythm without murmurs, gallops, or rubs. No JVD. Peripheral pulses symmetric. RESPIRATORY/CHEST: Symmetric, unlabored respirations. Scattered rhonchi and a few rales bilateral. GASTROINTESTINAL: Abdomen soft, non-tender, obese. No hepato-splenomegaly, or palpable masses. Mild tenderness in the upper abdomen without guarding. Bowel sounds present. GENITOURINARY: Without palpable bladder distension. MUSCULOSKELETAL: Extremities without clubbing, cyanosis, or edema. No joint tenderness or effusion noted. No calf tenderness. No mottling or clubbing. LYMPHATICS: No palpable cervical or supraclavicular adenopathy. NEUROLOGICAL: Awake and alert. She appears profoundly weak, and tells me she is unable to move her legs or feet. There is decreased sensation in the legs that she attributes to her diabetic neuropathy. PSYCHIATRIC: No obvious anxiety/depression. no apparent hallucinations or other psychotic thought process. . Diagnostic Tests Laboratory Laboratory Tests Test 02/16/17 02/17/17 02/18/17 08:58 09:30 11:28 White Blood Count 15.5 TH/MM3 13.5 TH/MM3 14.3 TH/MM3 (4.0-11.0) (4.0-11.0) (4.0-11.0) Red Blood Count 4.04 MIL/MM3 3.66 MIL/MM3 3.90 MIL/MM3 (4.00-5.30) (4.00-5.30) (4.00-5.30) Hemoglobin 8.4 GM/DL 7.6 GM/DL 8.1 GM/DL (11.6-15.3) (11.6-15.3) (11.6-15.3) Hematocrit 27.2 % 24.8 % 26.4 % (35.0-46.0) (35.0-46.0) (35.0-46.0) Mean Corpuscular Volume 67.2 FL 67.6 FL 67.6 FL (80.0-100.0) (80.0-100.0) (80.0-100.0) Mean Corpuscular Hemoglobin 20.7 PG 20.8 PG 20.8 PG (27.0-34.0) (27.0-34.0) (27.0-34.0) Mean Corpuscular Hemoglobin 30.8 % 30.7 % 30.8 % Concent (32.0-36.0) (32.0-36.0) (32.0-36.0) Red Cell Distribution Width 16.3 % 16.3 % 16.4 % (11.6-17.2) (11.6-17.2) (11.6-17.2) Platelet Count 413 TH/MM3 414 TH/MM3 454 TH/MM3 (150-450) (150-450) (150-450) Mean Platelet Volume 8.2 FL 8.0 FL 8.6 FL (7.0-11.0) (7.0-11.0) (7.0-11.0) Neutrophils (%) (Auto) 84.6 % 80.3 % 78.6 % (16.0-70.0) (16.0-70.0) (16.0-70.0) Lymphocytes (%) (Auto) 5.8 % 7.6 % 9.5 % (9.0-44.0) (9.0-44.0) (9.0-44.0) Monocytes (%) (Auto) 8.3 % (0.0-8.0) 8.6 % (0.0-8.0) 8.1 % (0.0-8.0) Eosinophils (%) (Auto) 1.1 % (0.0-4.0) 3.1 % (0.0-4.0) 3.4 % (0.0-4.0) Basophils (%) (Auto) 0.2 % (0.0-2.0) 0.4 % (0.0-2.0) 0.4 % (0.0-2.0) Neutrophils # (Auto) 13.1 TH/MM3 10.9 TH/MM3 11.2 TH/MM3 (1.8-7.7) (1.8-7.7) (1.8-7.7) Lymphocytes # (Auto) 0.9 TH/MM3 1.0 TH/MM3 1.4 TH/MM3 (1.0-4.8) (1.0-4.8) (1.0-4.8) Monocytes # (Auto) 1.3 TH/MM3 1.2 TH/MM3 1.2 TH/MM3 (0-0.9) (0-0.9) (0-0.9) Eosinophils # (Auto) 0.2 TH/MM3 0.4 TH/MM3 0.5 TH/MM3 (0-0.4) (0-0.4) (0-0.4) Basophils # (Auto) 0.0 TH/MM3 0.1 TH/MM3 0.1 TH/MM3 (0-0.2) (0-0.2) (0-0.2) CBC Comment DIFF FINAL DIFF FINAL DIFF FINAL Differential Comment Sodium Level 137 MEQ/L 137 MEQ/L 137 MEQ/L (136-145) (136-145) (136-145) Potassium Level 4.7 MEQ/L 4.9 MEQ/L 5.2 MEQ/L (3.5-5.1) (3.5-5.1) (3.5-5.1) Chloride Level 96 MEQ/L 93 MEQ/L 95 MEQ/L (98-107) (98-107) (98-107) Carbon Dioxide Level 27.2 MEQ/L 30.8 MEQ/L 30.6 MEQ/L (21.0-32.0) (21.0-32.0) (21.0-32.0) Anion Gap 14 MEQ/L (5-15) 13 MEQ/L (5-15) 11 MEQ/L (5-15) Blood Urea Nitrogen 66 MG/DL (7-18) 83 MG/DL (7-18) 57 MG/DL (7-18) Creatinine 7.66 MG/DL 8.99 MG/DL 7.05 MG/DL (0.50-1.00) (0.50-1.00) (0.50-1.00) Estimat Glomerular Filtration 6 ML/MIN (>89) 5 ML/MIN (>89) 7 ML/MIN (>89) Rate Random Glucose 165 MG/DL 189 MG/DL 145 MG/DL (74-106) (74-106) (74-106) Calcium Level 8.0 MG/DL 7.8 MG/DL 8.1 MG/DL (8.5-10.1) (8.5-10.1) (8.5-10.1) Result Diagram: 02/18/17 1128 02/18/17 1128 Imaging Last Impressions Chest Ultrasound 02/17/17 0000 Signed Impressions: Service Date/Time: Friday, February 17, 2017 22:18 - CONCLUSION: Small right pleural effusion estimated at 252 cc. Kevin Sofia MD Catheter Placement X-Ray 02/17/17 0000 Signed Impressions: Service Date/Time: Saturday, February 18, 2017 09:29 - CONCLUSION: Uncomplicated venous catheter change as above. Kolby Hughes Jr., MD Lower Extremity Ultrasound 02/16/17 0000 Signed Impressions: Service Date/Time: Thursday, February 16, 2017 20:41 - CONCLUSION: Negative exam. No evidence of deep venous thrombosis. Kevin Sofia MD Chest X-Ray 02/16/17 0000 Signed Impressions: Service Date/Time: Thursday, February 16, 2017 06:18 - CONCLUSION: Stable exam with bilateral pleural effusions and overlying atelectasis. Mariana Atkins MD Abdomen X-Ray 02/14/17 0000 Signed Impressions: Service Date/Time: Tuesday, February 14, 2017 14:20 - CONCLUSION: 1. No bowel obstruction or ileus. 2. Degenerative changes involving the lumbar and lower thoracic spine. Sadi Chilel MD Percutaneous Cholangiogram 02/06/17 0000 Signed Impressions: Service Date/Time: Monday, February 06, 2017 15:15 - CONCLUSION: Uncomplicated percutaneous cholecystostomy as above. Thick inspissated bile was noted. The drainage is fairly low given the size of the gallbladder and therefore a CT will be performed to confirm appropriate positioning of the cholecystostomy tube. Kolby Hughes Jr., MD Abdomen CT 02/06/17 0000 Signed Impressions: Service Date/Time: Monday, February 06, 2017 16:21 - CONCLUSION: Interval cholecystostomy tube placement. Worsening parenchymal disease in the lung bases. Ney Lutz MD Abdomen/Pelvis CT 02/05/17 1656 Signed Impressions: Service Date/Time: January 18:15 - CONCLUSION: 1. Gallbladder is abnormal. It is markedly distended with gallbladder wall thickening and mild induration of the pericholecystic fat concerning for cholecystitis. High attenuation within the gallbladder lumen may be related to sludge or clot. 2. Left basilar atelectasis and tiny left effusion. Juan De Souza MD Gall Bladder Ultrasound 02/05/17 0000 Signed Impressions: Service Date/Time: January 20:39 - CONCLUSION: 1. The gallbladder is abnormal with findings corresponding to the findings on the CT exam. There is wall thickening, marked distention and the lumen is occupied by echogenic shadowing material which may reflect sludge or hemorrhage. A few stones are suspected. Juan De Souza MD Procedures Cholecystostomy tube placement 02/06/17 Vas-Cath 02/09/17 and 02/18/17 . Patient/Family Conference Present at Family Conference: Daughters Curtis, son Brennan, and Miguel . Family Conference Time (mins): 66 Family Conference Location: Bedside, Consult Room Issues Discussed: * Palliative care role, purpose, approach * Additional medical, psychosocial, and spiritual history * Patients general health, functional status, and cognitive changes in the months leading up to the current hospitalization * Patient/family understanding of the current medical problems * Patient/family understanding of prognosis * Patients goals of care as best understood from advance directives and/or conversations and/or values * Current medical treatment options and benefits/burdens of those options * Likely scenarios comparing ongoing aggressive care with a transition to comfort measures only * Questions answered to the best of my ability * Palliative care contact information provided The patient and family would like to continue aggressive care for now. They are going to discuss resuscitation status later. . Assessment and Plan Disease Oriented Problem List: (1) sepsis, cholecystitis with septic shock (2) renal failure on dialysis; possible ATN secondary to recent septic shock (3) cardiomyopathy, CHF, EF 30% (4) profound weakness of legs (5) diabetes, long-standing, with neuropathy (6) degenerative joint disease (7) hypertension (8) hyperlipidemia (9) anemia (history of sickle cell trait, thalassemia, and pernicious anemia) Symptom Scale: (1) pain 0-10 Scale: 3 (history of some chronic discomfort, recent abdominal pain) (2) dyspnea 0-10 Scale: 2 (subjectively better on nonrebreather) Pertinent Non-Medical Issues Psychosocial: , former [employer], 3 living children. Spiritual: Spirituality has been very important for the patient. She has been an active member of a local [employer]ominational christian, and her clergy has come to visit her and has been supportive for her and the family. Legal: At this time, the patient has capacity for decision-making. The patient designates her daughter Johanny (nurse) as her healthcare surrogate. The rest of the family agrees. Ethical issues impacting care: None . Important Contacts Daughter/HCS: Johanny Arnold . Prognosis The patient has multiorgan system dysfunction or failure, including pulmonary, cardiac, and renal, and is admitted now with cholecystitis (not felt to be a surgical candidate at this time). She also had a recent hospitalization 2 months ago, and never regained her strength after that. She is now profoundly weak, does not move her legs, and has ongoing dyspnea requiring nonrebreather oxygen supplementation. Overall, her prognosis is quite guarded . Code Status: Full Code Plan * FULL CODE * The patient and her family are having further discussions amongst themselves regarding CODE STATUS, and the patient will readdress that with me in a day or 2. * DECISION-MAKING: At this time, the patient has capacity for decision-making. The patient designates her daughter Johanny (nurse) as her healthcare surrogate. The rest of the family agrees. * GOALS: The patient and her family want to continue aggressive care for now. We had a detailed discussion about resuscitation choices, and the patient will discuss this further with her family. They understand that her multisystem dysfunction/failure portends a rather poor prognosis. * SYMPTOMS: Her dyspnea is being managed with supplemental oxygen and rest. For pain, the patient has received intermittent oxycodone and ventral morphine, and she tells me that has been adequate. I have no further medication recommendations at this time. * I have requested that physical therapy revisit and reevaluate regarding the patient's inability or unwillingness to move her legs and feet (she was ambulatory prior to this hospitalization). * Palliative Care will continue to follow the patient during this hospitalization. . Time Spent Total Floor Time (mins): 99 Face to Face Time (mins): 39 >50% Counseling/Coord of Care: Yes (d/w Dr. Godoy) Thank you for the opportunity to participate in the care of Ms. Rg. Attestation To help prompt me to consider important information that might be impacting today's encounter and assessment, information from prior notes written by myself or my colleagues may have been "brought forward" into today's note. My signature on this note, however, is an attestation that I personally performed the exam, history, and/or decision-making noted today, and, unless otherwise indicated, the interactions with patient, family, and staff as well as the review of records all occurred today. I also attest that the listed assessment and stated plan reflect my best clinical judgment today based on the combination of historical information, prior notes, and today's exam/ interactions. When time spent is documented, it refers only to time spent today by the signer, or if indicated, combined time spent today by collaborating physician/nurse practitioner. Margot North MD Feb 18, 2017 15:20
--- NOTE | 2017-02-18 16:51 | HHI.NPPN ---
Subjective History of Present Illness 66-year-old female with a past medical history of hypertension, diabetes mellitus, chronic kidney disease, anemia and chronic back pain, who was admitted because of abdominal pain, nausea and vomiting. I was called to see the patient because of elevated BUN and creatinine. The patient has known history of chronic kidney disease and she had acute kidney injury. Additional Remarks Patient is alert, has mild SOB, remain with NRM. Objective Data Data 02/17/17 02/18/17 19:00 07:00 Intake Total 240 ml Output Total 2550 ml 200 ml Balance -2550 ml 40 ml Intake Oral 240 ml Output Urine Total 150 ml 200 ml Hemodialysis 2400 ml # Bowel Movements 1 2 Vital Signs Date Time Temp Pulse Resp B/P Pulse Ox O2 Delivery O2 Flow Rate FiO2 02/18/17 11:41 98.3 88 20 174/74 99 02/18/17 11:30 98 Partial Rebreather 15.00 02/18/17 08:00 97.6 85 18 140/65 98 02/18/17 04:00 98.3 83 20 139/62 99 02/18/17 00:00 99.0 92 20 153/67 96 02/17/17 23:30 Non-Rebreather 02/17/17 20:00 98.0 91 20 166/71 98 02/17/17 18:03 98.0 87 20 111/72 98 -: 02/18/17 1128 02/18/17 1128 Physical Exam General Appearance: Anxious Eyes Eye Exam: Pupils Equal Throat Throat Exam: Oral Mucosa [place] & Moist Neck Neck Exam: Neck Supple Pulmonary Resp Exam: Breath Sounds Equal, No Distress, Rhonchi, Decreased Bases Cardiology CV Exam: Regular, Normal Sinus Rhythm Gastrointestinal/Abdomen GI Exam: Soft, Bowel Sounds Present, Distended Extremeties Extremities Exam: Trace Edema Neurologic Neuro Exam: Alert, Awake, Oriented Psychiatric Psych Exam: Appropriate Responses Assessment/Plan Assessment Summary: GRADY/Acute Renal Failure, Hypotension, CKD Stage IV Problem List: (1) Diabetes mellitus (2) CHF (congestive heart failure) (3) Cholecystitis (4) Gallstones (5) Elevated LFTs (6) Anemia (7) Stage 4 chronic kidney disease (8) Acute kidney failure Plan Has been non oliguric, Creatinine still elevated. Most likely has ATN due to hypotension causing GRADY. Continue antibiotics. On Epogen with HD. HD done yesterday. VasCath is changed. HD again in AM. Problem Qualifiers (1) Anemia: Svitlana Cook MD Feb 18, 2017 16:51
--- NOTE | 2017-02-18 17:00 | PD.CARD.PN ---
Subjective Subjective Remarks Lethargic today No chest pain, breathing well on oxygen Objective Medications Current Medications Medications (Trade) Dose Ordered Sig/Lo Route Start Time Stop Time Status Last Admin (D50w (Vial) Inj) 50 ml UNSCH PRN IV 02/05/17 19:30 Glucagon 1 mg 1 mg UNSCH PRN OTHER 02/05/17 19:30 (NS 1000 ml Inj) 1,000 ml @ 50 mls/hr Q20H IV 02/05/17 19:16 Hold 02/06/17 04:19 (NS Flush) 2 ml UNSCH PRN IV FLUSH 02/05/17 19:30 (NS Flush) 2 ml BID IV FLUSH 02/05/17 21:00 02/17/17 22:00 (Zofran Inj) 4 mg Q6H PRN IVP 02/05/17 19:30 02/12/17 03:32 (Tylenol) 650 mg Q6H PRN PO 02/05/17 19:30 (Roxicodone) 5 mg Q4H PRN PO 02/05/17 19:30 02/12/17 22:10 (Terese-Colace) 1 tab BID PO 02/05/17 21:00 02/18/17 11:31 (Milk Of Magnesia Liq) 30 ml Q12H PRN PO 02/05/17 19:30 02/06/17 07:59 (Senokot) 17.2 mg Q12H PRN PO 02/05/17 19:30 (Dulcolax Supp) 10 mg DAILY PRN RECTAL 02/05/17 19:30 (Lactulose Liq) 30 ml DAILY PRN PO 02/05/17 19:30 02/06/17 17:46 (Norvasc) 10 mg DAILY PO 02/06/17 09:00 Hold 02/06/17 07:57 (Coreg) 3.125 mg Q12HR PO 02/05/17 21:00 02/18/17 11:30 (Zanaflex) 4 mg TID PO 02/06/17 09:00 02/18/17 11:46 (Levemir Inj) 10 units DAILY SQ 02/06/17 09:00 02/18/17 12:00 (Morphine Inj) 1 mg Q4HR PRN IV 02/06/17 12:00 02/17/17 17:57 (Proamatine) 10 mg TID@07,12,17 PO 02/08/17 17:00 02/18/17 16:27 Miscellaneous Information Patient in critical care unit? Ass... Q361D .XX 02/08/17 23:00 (NS Flush) UNSCH PRN IVF 02/09/17 15:30 Heparin Sodium (Porcine) UNSCH PRN IV FLUSH 02/09/17 15:30 (NS 1000 ml Inj) 1,000 ml @ 0 mls/hr Q0M PRN IV 02/09/17 15:39 02/14/17 10:15 Heparin Sodium (Porcine) 8000 units 8,000 units UNSCH PRN IVF 02/09/17 15:45 Sodium Chloride 1,000 ml @ 200 mls/hr Q5H PRN IV 02/09/17 15:39 (NS 1000 ml Inj) 1,000 ml @ 0 mls/hr Q0M PRN IV 02/09/17 15:39 (Mannitol Inj) 12.5 gm UNSCH PRN IV 02/09/17 15:45 (Albumin 25% Inj) 25 gm UNSCH PRN IV 02/09/17 15:45 02/14/17 10:23 (NS Flush) 5 ml UNSCH PRN IV FLUSH 02/09/17 15:45 02/14/17 10:15 (Heparin Inj) UNSCH PRN .XX 02/09/17 15:45 02/14/17 10:14 (Gentamicin (Dialysis) Inj) 20 mg UNSCH PRN IV 02/09/17 15:45 02/14/17 10:14 (Zofran Inj) 4 mg UNSCH PRN IV 02/09/17 15:45 02/10/17 09:36 (Tylenol) 650 mg UNSCH PRN PO 02/09/17 15:45 (Benadryl) 25 mg UNSCH PRN PO 02/09/17 15:45 02/17/17 08:45 (Nitrostat Sl) 0.4 mg UNSCH PRN SL 02/09/17 15:45 (Catapres) 0.1 mg UNSCH PRN PO 02/09/17 15:45 (Gelfoam 12 Mm/7 Mm Top) 1 foam UNSCH PRN TOP 02/09/17 15:45 (Melatonin) 5 mg HS PRN PO 02/10/17 17:15 02/10/17 22:08 (Epogen Inj) 20,000 units UNSCH PRN IV 02/12/17 10:15 02/14/17 10:14 (Roxicodone) 10 mg Q4H PRN PO 02/13/17 11:15 02/17/17 08:46 (Lasix Inj) 40 mg DAILY IV PUSH 02/16/17 09:00 02/18/17 11:30 (Heparin Inj) 5,000 units Q12HR SQ 02/16/17 21:00 02/18/17 11:46 (Aspirin Chew) 81 mg DAILY CHEW 02/17/17 09:00 02/18/17 11:30 Vital Signs / I&O Vital Signs Date Time Temp Pulse Resp B/P Pulse Ox O2 Delivery O2 Flow Rate FiO2 02/18/17 16:00 98.7 86 19 138/80 97 02/18/17 11:41 98.3 88 20 174/74 99 02/18/17 11:30 98 Partial Rebreather 15.00 02/18/17 08:00 97.6 85 18 140/65 98 02/18/17 04:00 98.3 83 20 139/62 99 02/18/17 00:00 99.0 92 20 153/67 96 02/17/17 23:30 Non-Rebreather 02/17/17 20:00 98.0 91 20 166/71 98 02/17/17 18:03 98.0 87 20 111/72 98 I/O 02/17/17 02/17/17 02/17/17 02/18/17 02/18/17 02/18/17 07:00 15:00 23:00 07:00 15:00 23:00 Intake Total 240 ml 480 ml Output Total 400 ml 2650 ml 100 ml 300 ml Balance -400 ml -2410 ml -100 ml 180 ml Intake Oral 240 ml 480 ml Output Urine Total 400 ml 250 ml 100 ml 300 ml Hemodialysis 2400 ml # Bowel Movements 1 1 1 1 1 Physical Exam GENERAL: NAD, alert and awake SKIN: Warm and dry. HEAD: Atraumatic. Normocephalic. EYES: Pupils equal and round. No scleral icterus. No injection or drainage. ENT: No nasal bleeding or discharge. Mucous membranes pink and moist. NECK: Trachea midline. No JVD. CARDIOVASCULAR: Regular rate and rhythm. RESPIRATORY: No accessory muscle use. Decreased breath sounds bilaterally, mild crackles GASTROINTESTINAL: Abdomen soft, non-tender, nondistended. Hepatic and splenic margins not palpable. MUSCULOSKELETAL: Extremities without clubbing, cyanosis, or edema. No obvious deformities. NEUROLOGICAL: Awake and alert. No obvious cranial nerve deficits. Motor grossly within normal limits. Five out of 5 muscle strength in the arms and legs. Normal speech. PSYCHIATRIC: Appropriate mood and affect; insight and judgment normal. Laboratory Laboratory Tests Test 02/18/17 11:28 White Blood Count 14.3 TH/MM3 Red Blood Count 3.90 MIL/MM3 Hemoglobin 8.1 GM/DL Hematocrit 26.4 % Mean Corpuscular Volume 67.6 FL Mean Corpuscular Hemoglobin 20.8 PG Mean Corpuscular Hemoglobin 30.8 % Concent Red Cell Distribution Width 16.4 % Platelet Count 454 TH/MM3 Mean Platelet Volume 8.6 FL Neutrophils (%) (Auto) 78.6 % Lymphocytes (%) (Auto) 9.5 % Monocytes (%) (Auto) 8.1 % Eosinophils (%) (Auto) 3.4 % Basophils (%) (Auto) 0.4 % Neutrophils # (Auto) 11.2 TH/MM3 Lymphocytes # (Auto) 1.4 TH/MM3 Monocytes # (Auto) 1.2 TH/MM3 Eosinophils # (Auto) 0.5 TH/MM3 Basophils # (Auto) 0.1 TH/MM3 CBC Comment DIFF FINAL Differential Comment Sodium Level 137 MEQ/L Potassium Level 5.2 MEQ/L Chloride Level 95 MEQ/L Carbon Dioxide Level 30.6 MEQ/L Anion Gap 11 MEQ/L Blood Urea Nitrogen 57 MG/DL Creatinine 7.05 MG/DL Estimat Glomerular Filtration 7 ML/MIN Rate Random Glucose 145 MG/DL Calcium Level 8.1 MG/DL Assessment and Plan Problem List: (1) Cholecystitis (2) Anemia (3) Acute kidney failure (4) Stage 4 chronic kidney disease (5) Diabetes mellitus (6) CHF (congestive heart failure) (7) Cardiomyopathy Assessment and Plan 1) SOB Possible due to decompensated CHF Weights have gone up as creatinine has gone up as well as decreased urine output HD/fluid management per nephrology 2) If oxygen demand is not decreased after HD and weights down, then may need to look for other causes 3) Cardiomyopathy of unknown cause, never evaluated Not the best candidate for revascularization with comorbidities and cholecystomy tube Will get through initial illness, and further discuss but most likely medical management 4) Agree with palliative care consultation Problem Qualifiers (1) Anemia: Chin Hernandez DO Feb 18, 2017 17:00
--- NOTE | 2017-02-18 19:50 | HHI.PR ---
Addendum to Inpatient Note Addendum Reason: Additional Documentation Additional Information Chart review documentation Patient appears to do be doing well clinically off Zosyn. Continue to monitor off Zosyn. Will sign off please call back if any change in clinical condition or questions. Usha Velarde MD Feb 18, 2017 19:50
[2017-02-18] MEDS: SODIUM CHLORIDE 0.9% FLUSH 10 ML FLUSH IV FLUSH SCH (22:42)
[2017-02-19] VITALS (7 sets, daily range): BP systolic 136–171; BP diastolic 63–74; PULSE 64–90; RESP 16–20; TEMP 98.6–101.7; O2SAT 94–99
[2017-02-19] MEDS: INSULIN ASPART SUPPLEMENTAL SCALE SQ SCH ×4 (06:46→21:33)
[2017-02-19] MEDS: MIDODRINE 5 MG TAB PO SCH ×3 (06:48→15:55)
[2017-02-19] MEDS: CARVEDILOL 3.125 MG TAB PO SCH ×2 (08:38→21:23)
[2017-02-19] MEDS: FUROSEMIDE 40 MG/4 ML VIAL IV PUSH SCH (08:38)
[2017-02-19] MEDS: HEPARIN SODIUM - SQ 10,000 UNITS/ML VIAL SQ SCH ×2 (08:38→21:23)
[2017-02-19] MEDS: SODIUM CHLORIDE 0.9% FLUSH 10 ML FLUSH IV FLUSH SCH ×2 (08:39→21:24)
[2017-02-19] MEDS: INSULIN DETEMIR 100 UNITS/ML VIAL SQ SCH (08:39)
[2017-02-19] MEDS: ASPIRIN 81 MG CHEW TAB CHEW SCH (08:44)
[2017-02-19] MEDS: DOCUSATE SODIUM 50 MG/SENNA 8.6 MG TAB PO SCH ×2 (08:44→21:24)
[2017-02-19 08:53] LABS: AUTOMATED NEUTROPHIL # 12.6 TH/MM3 (1.8-7.7); BASOPHIL # 0.1 TH/MM3 (0-0.2); BASOPHIL % 0.6 % (0.0-2.0); EOSINOPHIL # 0.4 TH/MM3 (0-0.4); EOSINOPHIL % 2.4 % (0.0-4.0); HEMATOCRIT 26.6 % (35.0-46.0); HEMO FLAGS DIFF FINAL; LYMPH % 10.1 % (9.0-44.0); LYMPHOCYTE # 1.7 TH/MM3 (1.0-4.8); MEAN CELL VOLUME 66.9 FL (80.0-100.0); MEAN CORPUSCULAR HEMOGLOBIN 20.9 PG (27.0-34.0); MEAN CORPUSCULAR HGB CONC 31.2 % (32.0-36.0); MONO % 9.8 % (0.0-8.0); NEUT % 77.1 % (16.0-70.0); PLATELET COUNT 483 TH/MM3 (150-450); RED BLOOD COUNT 3.98 MIL/MM3 (4.00-5.30); RED CELL DISTRIBUTION WIDTH 16.6 % (11.6-17.2); WHITE BLOOD COUNT 16.4 TH/MM3 (4.0-11.0)
[2017-02-19 09:21] LABS: ALT (GPT) 25 U/L (10-53); AST (GOT) 19 U/L (15-37); BLOOD UREA NITROGEN 71 MG/DL (7-18); GLOMERULAR FILTRATION RATE 6 ML/MIN (>89)
[2017-02-19 09:27] LABS: ALKALINE PHOSPHATASE 150 U/L (45-117); TOTAL BILIRUBIN ADULT 0.4 MG/DL (0.2-1.0)
[2017-02-19 09:31] LABS: ANION GAP 13 MEQ/L (5-15); CHLORIDE 93 MEQ/L (98-107); POTASSIUM 4.9 MEQ/L (3.5-5.1); SODIUM (NA) 135 MEQ/L (136-145)
--- NOTE | 2017-02-19 12:19 | HHI.NPPN ---
Subjective History of Present Illness 66-year-old female with a past medical history of hypertension, diabetes mellitus, chronic kidney disease, anemia and chronic back pain, who was admitted because of abdominal pain, nausea and vomiting. I was called to see the patient because of elevated BUN and creatinine. The patient has known history of chronic kidney disease and she had acute kidney injury. Additional Remarks Patient is alert, seen during HD, now with simple mask, breathing is better. Objective Data Data 02/18/17 02/19/17 19:00 07:00 Intake Total 480 ml Output Total 300 ml 450 ml Balance 180 ml -450 ml Intake Oral 480 ml Output Urine Total 300 ml 450 ml # Bowel Movements 1 Vital Signs Date Time Temp Pulse Resp B/P Pulse Ox O2 Delivery O2 Flow Rate FiO2 02/19/17 08:00 98.7 88 16 171/74 94 02/19/17 04:52 94 Simple Mask 6.00 02/19/17 04:43 98.6 02/19/17 04:22 Non-Rebreather 02/19/17 04:00 101.7 90 20 136/63 97 02/19/17 02:10 Non-Rebreather 02/19/17 00:00 99.0 64 20 152/67 99 02/18/17 20:00 98.1 76 20 160/71 99 02/18/17 19:34 69 02/18/17 16:00 98.7 86 19 138/80 97 -: 02/19/17 0805 02/19/17 0805 Physical Exam General Appearance: Anxious Eyes Eye Exam: Pupils Equal Throat Throat Exam: Oral Mucosa Ecru & Moist Neck Neck Exam: Neck Supple Pulmonary Resp Exam: Breath Sounds Equal, No Distress, Rhonchi, Decreased Bases Cardiology CV Exam: Regular, Normal Sinus Rhythm Gastrointestinal/Abdomen GI Exam: Soft, Bowel Sounds Present, Distended Extremeties Extremities Exam: Trace Edema Neurologic Neuro Exam: Alert, Awake, Oriented Psychiatric Psych Exam: Appropriate Responses Assessment/Plan Assessment Summary: GRADY/Acute Renal Failure, Hypotension, CKD Stage IV Problem List: (1) Diabetes mellitus (2) CHF (congestive heart failure) (3) Cholecystitis (4) Gallstones (5) Elevated LFTs (6) Anemia (7) Stage 4 chronic kidney disease (8) Acute kidney failure Plan Has been non oliguric, Creatinine still elevated. Most likely has ATN due to hypotension causing GRADY. Continue antibiotics. On Epogen with HD. Urine out put is better, still has increasing Creatinine. HD now, remove fluid as tolerated. Follow BMP and HD as needed. Problem Qualifiers (1) Anemia: Svitlana Cook MD Feb 19, 2017 12:18
--- NOTE | 2017-02-19 12:50 | PD.CARD.PN ---
Subjective Subjective Remarks No events overnight Appears to be doing better with less oxygen demand Patient seen on HD Objective Medications Current Medications Medications (Trade) Dose Ordered Sig/Lo Route Start Time Stop Time Status Last Admin (D50w (Vial) Inj) 50 ml UNSCH PRN IV 02/05/17 19:30 Glucagon 1 mg 1 mg UNSCH PRN OTHER 02/05/17 19:30 (NS 1000 ml Inj) 1,000 ml @ 50 mls/hr Q20H IV 02/05/17 19:16 Hold 02/06/17 04:19 (NS Flush) 2 ml UNSCH PRN IV FLUSH 02/05/17 19:30 (NS Flush) 2 ml BID IV FLUSH 02/05/17 21:00 02/19/17 08:39 (Zofran Inj) 4 mg Q6H PRN IVP 02/05/17 19:30 02/12/17 03:32 (Tylenol) 650 mg Q6H PRN PO 02/05/17 19:30 (Roxicodone) 5 mg Q4H PRN PO 02/05/17 19:30 02/12/17 22:10 (Terese-Colace) 1 tab BID PO 02/05/17 21:00 02/18/17 22:41 (Milk Of Magnesia Liq) 30 ml Q12H PRN PO 02/05/17 19:30 02/06/17 07:59 (Senokot) 17.2 mg Q12H PRN PO 02/05/17 19:30 (Dulcolax Supp) 10 mg DAILY PRN RECTAL 02/05/17 19:30 (Lactulose Liq) 30 ml DAILY PRN PO 02/05/17 19:30 02/06/17 17:46 (Norvasc) 10 mg DAILY PO 02/06/17 09:00 Hold 02/06/17 07:57 (Coreg) 3.125 mg Q12HR PO 02/05/17 21:00 02/19/17 08:38 (Zanaflex) 4 mg TID PO 02/06/17 09:00 02/19/17 08:38 (Levemir Inj) 10 units DAILY SQ 02/06/17 09:00 02/18/17 12:00 (Morphine Inj) 1 mg Q4HR PRN IV 02/06/17 12:00 02/17/17 17:57 (Proamatine) 10 mg TID@,, PO 02/08/17 17:00 02/19/17 06:48 Miscellaneous Information Patient in critical care unit? Ass... Q361D .XX 02/08/17 23:00 (NS Flush) UNSCH PRN IVF 02/09/17 15:30 Heparin Sodium (Porcine) UNSCH PRN IV FLUSH 02/09/17 15:30 (NS 1000 ml Inj) 1,000 ml @ 0 mls/hr Q0M PRN IV 02/09/17 15:39 02/14/17 10:15 Heparin Sodium (Porcine) 8000 units 8,000 units UNSCH PRN IVF 02/09/17 15:45 Sodium Chloride 1,000 ml @ 200 mls/hr Q5H PRN IV 02/09/17 15:39 (NS 1000 ml Inj) 1,000 ml @ 0 mls/hr Q0M PRN IV 02/09/17 15:39 (Mannitol Inj) 12.5 gm UNSCH PRN IV 02/09/17 15:45 (Albumin 25% Inj) 25 gm UNSCH PRN IV 02/09/17 15:45 02/14/17 10:23 (NS Flush) 5 ml UNSCH PRN IV FLUSH 02/09/17 15:45 02/14/17 10:15 (Heparin Inj) UNSCH PRN .XX 02/09/17 15:45 02/14/17 10:14 (Gentamicin (Dialysis) Inj) 20 mg UNSCH PRN IV 02/09/17 15:45 02/14/17 10:14 (Zofran Inj) 4 mg UNSCH PRN IV 02/09/17 15:45 02/10/17 09:36 (Tylenol) 650 mg UNSCH PRN PO 02/09/17 15:45 (Benadryl) 25 mg UNSCH PRN PO 02/09/17 15:45 02/17/17 08:45 (Nitrostat Sl) 0.4 mg UNSCH PRN SL 02/09/17 15:45 (Catapres) 0.1 mg UNSCH PRN PO 02/09/17 15:45 (Gelfoam 12 Mm/7 Mm Top) 1 foam UNSCH PRN TOP 02/09/17 15:45 (Melatonin) 5 mg HS PRN PO 02/10/17 17:15 02/10/17 22:08 (Epogen Inj) 20,000 units UNSCH PRN IV 02/12/17 10:15 02/14/17 10:14 (Roxicodone) 10 mg Q4H PRN PO 02/13/17 11:15 02/19/17 06:44 (Lasix Inj) 40 mg DAILY IV PUSH 02/16/17 09:00 02/19/17 08:38 (Heparin Inj) 5,000 units Q12HR SQ 02/16/17 21:00 02/19/17 08:38 (Aspirin Chew) 81 mg DAILY CHEW 02/17/17 09:00 02/18/17 11:30 Vital Signs / I&O Vital Signs Date Time Temp Pulse Resp B/P Pulse Ox O2 Delivery O2 Flow Rate FiO2 02/19/17 08:00 98.7 88 16 171/74 94 02/19/17 04:52 94 Simple Mask 6.00 02/19/17 04:43 98.6 02/19/17 04:22 Non-Rebreather 02/19/17 04:00 101.7 90 20 136/63 97 02/19/17 02:10 Non-Rebreather 02/19/17 00:00 99.0 64 20 152/67 99 02/18/17 20:00 98.1 76 20 160/71 99 02/18/17 19:34 69 02/18/17 16:00 98.7 86 19 138/80 97 I/O 02/18/17 02/18/17 02/18/17 02/19/17 02/19/17 02/19/17 07:00 15:00 23:00 07:00 15:00 23:00 Intake Total 480 ml Output Total 100 ml 300 ml 250 ml 200 ml Balance -100 ml 180 ml -250 ml -200 ml Intake Oral 480 ml Output Urine Total 100 ml 300 ml 250 ml 200 ml # Bowel Movements 1 1 Physical Exam GENERAL: NAD, alert and awake SKIN: Warm and dry. HEAD: Atraumatic. Normocephalic. EYES: Pupils equal and round. No scleral icterus. No injection or drainage. ENT: No nasal bleeding or discharge. Mucous membranes pink and moist. NECK: Trachea midline. No JVD. CARDIOVASCULAR: Regular rate and rhythm. RESPIRATORY: No accessory muscle use. Decreased breath sounds bilaterally, mild crackles GASTROINTESTINAL: Abdomen soft, non-tender, nondistended. Hepatic and splenic margins not palpable. MUSCULOSKELETAL: Extremities without clubbing, cyanosis, or edema. No obvious deformities. NEUROLOGICAL: Awake and alert. No obvious cranial nerve deficits. Motor grossly within normal limits. Five out of 5 muscle strength in the arms and legs. Normal speech. PSYCHIATRIC: Appropriate mood and affect; insight and judgment normal. Laboratory Laboratory Tests Test 02/19/17 08:05 White Blood Count 16.4 TH/MM3 Red Blood Count 3.98 MIL/MM3 Hemoglobin 8.3 GM/DL Hematocrit 26.6 % Mean Corpuscular Volume 66.9 FL Mean Corpuscular Hemoglobin 20.9 PG Mean Corpuscular Hemoglobin 31.2 % Concent Red Cell Distribution Width 16.6 % Platelet Count 483 TH/MM3 Mean Platelet Volume 8.6 FL Neutrophils (%) (Auto) 77.1 % Lymphocytes (%) (Auto) 10.1 % Monocytes (%) (Auto) 9.8 % Eosinophils (%) (Auto) 2.4 % Basophils (%) (Auto) 0.6 % Neutrophils # (Auto) 12.6 TH/MM3 Lymphocytes # (Auto) 1.7 TH/MM3 Monocytes # (Auto) 1.6 TH/MM3 Eosinophils # (Auto) 0.4 TH/MM3 Basophils # (Auto) 0.1 TH/MM3 CBC Comment DIFF FINAL Differential Comment Sodium Level 135 MEQ/L Potassium Level 4.9 MEQ/L Chloride Level 93 MEQ/L Carbon Dioxide Level 29.0 MEQ/L Anion Gap 13 MEQ/L Blood Urea Nitrogen 71 MG/DL Creatinine 8.17 MG/DL Estimat Glomerular Filtration 6 ML/MIN Rate Random Glucose 199 MG/DL Calcium Level 8.1 MG/DL Total Bilirubin 0.4 MG/DL Aspartate Amino Transf 19 U/L (AST/SGOT) Alanine Aminotransferase 25 U/L (ALT/SGPT) Alkaline Phosphatase 150 U/L Total Protein 7.6 GM/DL Albumin 2.1 GM/DL Assessment and Plan Problem List: (1) Cholecystitis (2) Anemia (3) Acute kidney failure (4) Stage 4 chronic kidney disease (5) Diabetes mellitus (6) CHF (congestive heart failure) (7) Cardiomyopathy Assessment and Plan 1) SOB Possible due to decompensated CHF Weights have gone up as creatinine has gone up as well as decreased urine output HD/fluid management per nephrology 2.5L off the other day and 2L today, now down to 6L O2 2) Cardiomyopathy of unknown cause, never evaluated Not the best candidate for revascularization with comorbidities and cholecystomy tube Con't with medical management for now 3) Agree with palliative care consultation Problem Qualifiers (1) Anemia: Chin Hernandez DO Feb 19, 2017 12:50
[2017-02-19] MEDS: GENTAMICIN SULFATE (DIALYSIS USE ONLY) 20 MG/2 ML VIAL IV PRN (13:00)
[2017-02-19] MEDS: SODIUM CHLOR 0.9% 1000 ML INJ 1,000 ML IV PRN (13:00)
[2017-02-19] MEDS: HEPARIN SODIUM - IV 10,000 UNITS/10 ML VIAL PRN (13:00)
[2017-02-19] MEDS: EPOETIN ALFA 20,000 UNITS/ML VIAL IV PRN (13:01)
[2017-02-19 14:24] LABS: PROTHROMBIN TIME - PATIENT 10.8 SEC (9.8-11.6)
[2017-02-19 14:40] LABS: APTT (PATIENT) 38.8 SEC (24.3-30.1)
--- NOTE | 2017-02-19 17:49 | HHI.PR ---
Subjective Remarks Patient has no acute complaints. No nausea or vomiting. No pain reports. Objective Vital Signs Date Time Temp Pulse Resp B/P Pulse Ox O2 Delivery O2 Flow Rate FiO2 02/19/17 16:00 98.7 88 16 171/70 96 02/19/17 13:47 Simple Mask 5.00 02/19/17 08:00 98.7 88 16 171/74 94 02/19/17 04:52 94 Simple Mask 6.00 02/19/17 04:43 98.6 02/19/17 04:22 Non-Rebreather 02/19/17 04:00 101.7 90 20 136/63 97 02/19/17 02:10 Non-Rebreather 02/19/17 00:00 99.0 64 20 152/67 99 02/18/17 20:00 98.1 76 20 160/71 99 02/18/17 19:34 69 I/O 02/18/17 02/18/17 02/18/17 02/19/17 02/19/17 02/19/17 06:59 14:59 22:59 06:59 14:59 22:59 Intake Total 480 ml Output Total 100 ml 300 ml 250 ml 200 ml 2600 ml Balance -100 ml 180 ml -250 ml -200 ml -2600 ml Intake Oral 480 ml Output Urine Total 100 ml 300 ml 250 ml 200 ml Drainage Total 100 ml Hemodialysis 2500 ml # Bowel Movements 1 1 Result Diagram: 02/19/17 0802/19/17 0805 Procedures None Objective Remarks GENERAL: NAD, A&Ox3 HEAD: Normocephalic. Oxygen mask on. NECK: Supple, trachea midline. No lymphadenopathy. EYES: No scleral icterus. No injection or drainage. CARDIOVASCULAR: Regular rate and rhythm without murmurs, gallops, or rubs. RESPIRATORY: Breath sounds equal bilaterally. No accessory muscle use. GASTROINTESTINAL: Abdomen soft, non-tender, nondistended. MUSCULOSKELETAL: No cyanosis, or edema. SKIN: Warm and dry. NEURO: No focal neurological deficitis. A/P Problem List: (1) Cholecystitis ICD Code: K81.9 (2) Anemia ICD Code: D64.9 (3) Acute kidney failure ICD Code: N17.9 (4) Stage 4 chronic kidney disease ICD Code: N18.4 (5) Diabetes mellitus ICD Code: 250.00 (6) Cholecystostomy care ICD Code: Z43.4 (7) Cardiomyopathy ICD Code: I42.9 (8) Complications, dialysis, catheter, mechanical ICD Code: T82.49XA (9) Gallstones ICD Code: K80.20 (10) Elevated LFTs ICD Code: R79.89 (11) DM (diabetes mellitus) ICD Code: E11.9 (12) Renal insufficiency ICD Code: N28.9 (13) CHF (congestive heart failure) ICD Code: I50.9 Assessment and Plan Assessment and plan 66-year-old female admitted secondary to cholecystitis. Complications of acute renal failure, anemia, CHF, pleural effusion. Now status post cholecystectomy with drain. Doing well, seen post dialysis today. Labs ordered, CBC, BMP. Pulmonology consulted. Acute cholecystitis Status post cholecystostomy tube placement by IR Now off Zosyn Follow urine cultures Monitor for any fevers Follow CBC Continue pain control Continue postop wound care Monitor biliary drain output Acute systolic CHF Pulm Edema pleural effusion: 40 mg IV Lasix daily 2D ECHO, EF of 30-35%. Daily aspirin Low sodium diet Monitor pleural effusions Pulmonology consulted Cardiology following Acute on chronic kidney injury Metabolic acidosis secondary to acute renal failure Nephrology following Vas-Cath present Continue hemodialysis Hypotension Resolved Continue midodrine as needed Follow blood pressures Diabetes mellitus Insulin sliding scale Levemir Diabetic diet Follow blood sugars Chronic pain syndrome Insomnia Melatonin 5 mg by mouth daily at bedtime PRN for insomnia Continue as needed pain control treatments Mild protein calorie Malnutrition Calorie count ongoing Nutrition is consulted anemia of chronic disease Epogen and IV iron. Follow CBC DVT prophylaxis SCDs heparin Discharge Planning May need pleural effusion prior to discharge Daughter Johanny [phone] Problem Qualifiers (1) Anemia: Martinez Cordon MD Feb 19, 2017 17:49
[2017-02-19] MEDS: RESP: ALBUTEROL 2.5 MG/IPRATROPIUM 0.5 MG NEB (SCH) NEB (20:00)
--- NOTE | 2017-02-19 20:20 | MB ---
cc: Bruno BONILLA M.D. DATE OF CONSULTATION 02/19/17 REASON FOR CONSULTATION Pleural effusions. HISTORY OF PRESENT ILLNESS This is a 66-hour-old lady with a history of hypertension and chronic kidney disease stage IV, was admitted with congestive heart failure and complaints of abdominal pains, nausea and vomiting day prior to admission. The patient was hypertensive and she was running a fever. She was placed on oxygen and apparently was evaluated for gallbladder disease and found to have acute cholecystitis and had a cholecystostomy tube placed on 02/06. Post procedure the patient was on the surgical floor and was hypotensive and was transferred to intensive care unit for sepsis. Over the past 2 weeks further workup was conducted by the infectious disease service and as well as nephrology and the patient was then started on Bumex drip and subsequently went for dialysis. The patient is presently stable and being dialyzed today and chest x-ray that was done this week showed evidence of bilateral pleural effusions. Ultrasound of the chest was obtained that showed a moderate size right effusion which was marked. The patient is orthopneic. She was on a non-rebreather mask but now has been weaned down to a simple mask. Denies any chest pains. She has no nausea, vomiting at this time. She does have some epigastric discomfort. PAST MEDICAL HISTORY The past history has included history of chronic kidney disease stage IV, diabetes mellitus type 2, history of hypertension and hypertensive cardiovascular disease and hyperlipidemia. HABITS The patient does not smoke. No history of ethanolism. ALLERGIES LISINOPRIL. FAMILY HISTORY Noncontributory. MEDICATIONS Med list included: 1. Levemir insulin 10 units subcu daily. 2. Amlodipine 10 milligrams a day. 3. Regular insulin per sliding scale. 4. Coreg 3.125 milligrams b.i.d. The patient is on dialysis. REVIEW OF SYSTEMS Patient is on a simple mask, unable to respond very well to questions. She has headaches, blurriness of vision, postnasal drip. She has cough and orthopnea. She has epigastric distress and nausea. She has no urinary symptoms. Denies leg or calf muscle pains but has had some leg swelling and joint pains of her extremities and she has some depression. PHYSICAL EXAMINATION GENERAL: This middle-aged, averagely built -[place] lady who is pale and mildly dyspneic at rest. VITAL SIGNS: Blood pressure 150/90, pulse is 85, respirations 20, temperature 97.5. HEENT: Head normocephalic. Pupils are reactive. Tongue is dry. Throat was injected. Nasal mucosa is clear. NECK: Supple with mild venous distension. Trachea midline. CHEST: Decreased excursions. Breath sounds diminished at both bases with wheezes bilaterally. HEART: The heart sounds are regular S1-S2. No murmur. No S3. ABDOMEN: Soft, obese without masses. There is mild epigastric tenderness. No organomegaly. The bowel sounds are active. EXTREMITIES: Mild edema with diminished pulses. Reflexes are 1+ with no gross motor deficits. Cranial nerves grossly intact. SKIN: No lesions observed. IMPRESSION 1. Bibasilar pleural effusions, right more than left. 2. Chronic kidney disease stage IV and GRADY. 3. Acute cholecystitis status post cholecystostomy tube placement. 4. Respiratory failure with pulmonary edema and CHF. 5. Diabetes mellitus. 6. Hypertension. 7. Anemia of chronic disease. PLAN The patient will be placed on O2 at 5 liters nasal cannula and weaned down. Nebulized albuterol/Atrovent solution added q.i.d. We will get a coag profile and do a thoracentesis if there is significant fluid present on the right side. I discussed with her the possibility of a thoracentesis with the risks including bleeding, pneumothorax and/or respiratory failure. Thank you Dr. Godoy for this consultation MD CASPER Denton/NEENA /7:15 PM /7:59 PM
[2017-02-20] VITALS (19 sets, daily range): BP systolic 110–194; BP diastolic 57–87; PULSE 78–109; RESP 20–33; TEMP 98.7–100.2; O2SAT 88–100
[2017-02-20] MEDS ORDERED: FUROSEMIDE 40 MG/4 ML VIAL IV PUSH ONE (05:30)
[2017-02-20 05:59] LABS: BLOOD GAS BASE EXCESS 3.5 mmol/L (-2-2); BLOOD GAS HCO3 30 mmol/L (22-26); BLOOD GAS O2 HGB SATURATION 82 % (90-100); BLOOD GAS OXYGEN CONTENT 11.1 Vol % (12.0-20.0); BLOOD GAS PCO2 65 mmHg (38-42); BLOOD GAS PO2 55 mmHg (61-120); BLOOD GAS TOTAL HGB 9.6 G/DL (12.0-16.0); TEMP CORR TO 98.6
[2017-02-20 06:00] LABS: CRITICAL VALUE YES
[2017-02-20 06:01] LABS: DRAW SITE RT RADIAL; LITER FLOW 13 L/M; NUMBER OF ARTERIAL PUNCTURES 1; OXYGEN DEVICE PRB; STAT YES; ULNAR PULSE PRESENT
--- NOTE | 2017-02-20 06:08 | HHI.FPPN ---
Addendum to progress note ADDENDUM Reason for addendum: Additonal documentation Additional information S: Darlene Jones and Alessia responded to [facility] at 0530 hours on 02/[address] The Pt w/PHMx of CHF, ESRD on HD and pleural effusion had become hypoxic with O2 sats in the 80s. When we entered, the pt was diaphoretic and breathing 36-40 respirations per minute. Nursing had already prepared the pt to move to a critical care bed and had gotten an ABG. Pt had a central line placed on 02/19. O: Vital Signs On entry to the room: P - 109, BP - 187/85, RR - 36, SPO2 - 80s-90 Date Time Temp Pulse Resp B/P Pulse Ox O2 Delivery O2 Flow Rate FiO2 02/20/17 04:51 93 Partial Non-Rebreather 11.00 02/20/17 04:30 98.8 99 20 176/79 Physical Exam: GEN: WDWN obese pt sitting up in bed with partial nonrebreather mask on, moaning , diaphoretic, in moderate respiratory distress, only able to speak in very short sentences. HEENT: NCAT. CV: tachycardic, sinus rhythm, no murmur, rub or gallop. PULM: tachypnic, increased WOB with accessory muscle use and abdominal breathing ; lungs sounds appreciated on upper lobes bilaterally, but not in lower lung ewing; exam hindered by body habitus. ABDOMEN: distended. ABG Test 02/20/17 05:45 Blood Gas HCO3 30 H mmol/L Blood Gas Base Excess 3.5 H mmol/L Blood Gas Oxygen Saturation 82 *L % Arterial Blood pH 7.28 *L Arterial Blood Partial 65 *H mmHg Pressure CO2 Arterial Blood Partial 55 *L mmHg Pressure O2 Arterial Blood Oxygen Content 11.1 L Vol % Arterial Blood 1.0 % Carboxyhemoglobin Arterial Blood Methemoglobin 0.0 % Blood Gas Hemoglobin 9.6 L G/DL Oxygen Delivery Device PRB Blood Gas Liter Flow 13 L/M Last Impressions Chest Ultrasound 02/17/17 0000 Signed Impressions: Service Date/Time: Friday, February 17, 2017 22:18 - CONCLUSION: Small right pleural effusion estimated at 252 cc. Kevin Sofia MD Catheter Placement X-Ray 02/17/17 0000 Signed Impressions: Service Date/Time: Saturday, February 18, 2017 09:29 - CONCLUSION: Uncomplicated venous catheter change as above. Kolby Hughes Jr., MD Lower Extremity Ultrasound 02/16/17 0000 Signed Impressions: Service Date/Time: Thursday, February 16, 2017 20:41 - CONCLUSION: Negative exam. No evidence of deep venous thrombosis. Kevin Sofia MD Chest X-Ray 02/16/17 0000 Signed Impressions: Service Date/Time: Thursday, February 16, 2017 06:18 - CONCLUSION: Stable exam with bilateral pleural effusions and overlying atelectasis. Mariana Atkins MD Abdomen X-Ray 02/14/17 0000 Signed Impressions: Service Date/Time: Tuesday, February 14, 2017 14:20 - CONCLUSION: 1. No bowel obstruction or ileus. 2. Degenerative changes involving the lumbar and lower thoracic spine. Sadi Chilel MD Percutaneous Cholangiogram 02/06/17 0000 Signed Impressions: Service Date/Time: Monday, February 06, 2017 15:15 - CONCLUSION: Uncomplicated percutaneous cholecystostomy as above. Thick inspissated bile was noted. The drainage is fairly low given the size of the gallbladder and therefore a CT will be performed to confirm appropriate positioning of the cholecystostomy tube. Kolby Hughes Jr., MD Abdomen CT 02/06/17 0000 Signed Impressions: Service Date/Time: Monday, February 06, 2017 16:21 - CONCLUSION: Interval cholecystostomy tube placement. Worsening parenchymal disease in the lung bases. Ney Lutz MD Abdomen/Pelvis CT 02/05/17 1656 Signed Impressions: Service Date/Time: January 18:15 - CONCLUSION: 1. Gallbladder is abnormal. It is markedly distended with gallbladder wall thickening and mild induration of the pericholecystic fat concerning for cholecystitis. High attenuation within the gallbladder lumen may be related to sludge or clot. 2. Left basilar atelectasis and tiny left effusion. Juan De Souza MD Gall Bladder Ultrasound 02/05/17 0000 Signed Impressions: Service Date/Time: January 20:39 - CONCLUSION: 1. The gallbladder is abnormal with findings corresponding to the findings on the CT exam. There is wall thickening, marked distention and the lumen is occupied by echogenic shadowing material which may reflect sludge or hemorrhage. A few stones are suspected. Juan De Souza MD A/P: 66 YO female with PMHx CHF, ESRD on HD and bilateral pleural effusions with central line placed on 02/19 with respiratory distress and hypoxia with O2 sats in the 80s, respiratory acidosis and likely metabolic acidosis 2/2 pleural effusions, increased Cr and WBC. Consider tap of pleural effusions and HD. - ABG - CXR - EKG - Lasix 40 mg IV ordered - Dr Baltazar Kowalski to: -- BiPAP -- Transfer to critical care unit Derik Aggarwal MD R1 Feb 20, 2017 06:08
--- NOTE | 2017-02-20 06:41 | HHI.PR ---
Addendum to Inpatient Note Addendum Reason: Additional Documentation Additional Information Paged by RN due to decrease in saturation and wet lung sounds. Patient was placed on a non re breather and given a breathing treatment. Patient did not show improvement after treatment and was only sating 90%. -Chest x ray ordered -40mg IV lasix given -Abg ordered -Bipap ordered -Patient will be transferred to the unit for closer monitoring -Will need consult for dining room helper for possible thoracentesis and/or intubation Kortney Brand Feb 20, 2017 06:41
[2017-02-20] MEDS: INSULIN ASPART SUPPLEMENTAL SCALE SQ SCH ×4 (07:00→20:44)
[2017-02-20] MEDS: MIDODRINE 5 MG TAB PO SCH ×4 (07:00→17:00)
--- NOTE | 2017-02-20 07:56 | RADRPT ---
EXAM DATE/TIME: 02/20/2017 05:45 [facility] COMPARISON: CHEST SINGLE AP, February 16, 2017, 6:18. INDICATIONS : Short of breath. MEDICAL HISTORY : renal failure SURGICAL HISTORY : Cholecystectomy. ENCOUNTER: Subsequent ACUITY: 2 weeks PAIN SCORE: Non-responsive. LOCATION: Bilateral chest FINDINGS: There are bilateral pleural effusions, right sided central venous catheter and cardiomegaly again not ed. Patchy bilateral infiltrates are increased in the upper lobes today. Osseous structures are intac t. CONCLUSION: Increasing airspace disease, stable effusions. Juan De Souza MD on February 20, 2017 at 7:54 Board Certified Radiologist. This report was verified electronically.
[2017-02-20] MEDS: RESP: ALBUTEROL 2.5 MG/IPRATROPIUM 0.5 MG NEB (SCH) NEB ×4 (08:00→20:02)
[2017-02-20 08:06] LABS: BLOOD GAS CARBOXYHEMOGLOBIN 1.4 % (0-4); BLOOD GAS HCO3 29 mmol/L (22-26); BLOOD GAS METHEMOGLOBIN 0.9 % (0-2); BLOOD GAS O2 HGB SATURATION 94 % (90-100); BLOOD GAS OXYGEN CONTENT 11.3 Vol % (12.0-20.0); BLOOD GAS PCO2 52 mmHg (38-42); BLOOD GAS PO2 82 mmHg (61-120); BLOOD GAS TOTAL HGB 8.5 G/DL (12.0-16.0); TEMP CORR TO 98.6
[2017-02-20 08:07] LABS: CRITICAL VALUE YES; DRAW SITE RT RADIAL; FIO2 40 %; NUMBER OF ARTERIAL PUNCTURES 1; OXYGEN DEVICE BIPAP; STAT NO; ULNAR PULSE PRESENT
[2017-02-20 08:08] LABS: HEMATOCRIT 29.9 % (35.0-46.0); MEAN CELL VOLUME 67.4 FL (80.0-100.0); MEAN CORPUSCULAR HGB CONC 31.1 % (32.0-36.0); PLATELET COUNT 492 TH/MM3 (150-450); RED BLOOD COUNT 4.44 MIL/MM3 (4.00-5.30); RED CELL DISTRIBUTION WIDTH 16.5 % (11.6-17.2); REVIEW FLAG FINAL; WHITE BLOOD COUNT 16.4 TH/MM3 (4.0-11.0)
[2017-02-20 08:33] LABS: BICARBONATE 31.1 MEQ/L (21.0-32.0); POTASSIUM 4.9 MEQ/L (3.5-5.1)
[2017-02-20] MEDS: ASPIRIN 81 MG CHEW TAB CHEW SCH (09:00)
[2017-02-20] MEDS: CARVEDILOL 3.125 MG TAB PO SCH ×3 (09:00→21:09)
[2017-02-20] MEDS: INSULIN DETEMIR 100 UNITS/ML VIAL SQ SCH (09:00)
[2017-02-20] MEDS: DOCUSATE SODIUM 50 MG/SENNA 8.6 MG TAB PO SCH ×2 (09:00→21:00)
[2017-02-20 10:01] LABS: PROTHROMBIN TIME - PATIENT 10.8 SEC (9.8-11.6)
[2017-02-20] MEDS: HEPARIN SODIUM - SQ 10,000 UNITS/ML VIAL SQ SCH ×2 (10:02→20:34)
[2017-02-20] MEDS: SODIUM CHLORIDE 0.9% FLUSH 10 ML FLUSH IV FLUSH SCH ×2 (10:03→21:02)
[2017-02-20] MEDS: FUROSEMIDE 40 MG/4 ML VIAL IV PUSH SCH ×2 (10:03→20:34)
--- NOTE | 2017-02-20 10:14 | EKG ---
Date Performed: 02/20/2017 Time Performed: 06:09:22 PTAGE: 66 years EKG: Sinus tachycardia. Left bundle branch block Abnormal ECG Since PREVIOUS TRACING , no significant change noted PREVIOUS TRACIN02/10/2017 00.54 DOCTOR: Wild Jones Interpretating Date/Time 02/20/2017 10:13:11
--- NOTE | 2017-02-20 13:58 | HHI.HCPN ---
Reason for visit a. To assist with evaluation and management of symptoms including: Pain, dyspnea b. To assist medical decision maker(s) with: better understanding of current medical conditions; weighing benefits/burdens of medical treatment options; making medical treatment decisions. . Subjective/Interval History INTERVAL NOTE: The patient developed worsening dyspnea early this morning and she was moved back to our [facility] and placed on BiPAP. She remains alert. Chest x-ray was read as being a little worse; it looks "wet" to me, and effusions are present. Her most recent dialysis attempt was interrupted prematurely when her blood pressure fell. She had a low-grade fever this morning. . Family/friend interactions Patient's at the bedside, and patient's (nurse) HCS/daughter Johanny via telephone: The family understands that the patient's breathing has worsened, had some hypercapnic/hypoxic respiratory failure, and now is "holding her own" on the BiPAP. They do want continued aggressive care including intubation and mechanical ventilation if the BiPAP fails. . Advance Directives Living Will: Never completed Health Care Surrogate: Never completed Durable Power of Edge Gluer: Never completed Advance Directive Specifics Health Care Surrogate(s): The patient has designated her daughter Johanny as healthcare surrogate, and we completed the form . Objective Vital Signs Date Time Temp Pulse Resp B/P Pulse Ox O2 Delivery O2 Flow Rate FiO2 02/20/17 12:00 100.2 98 24 158/70 97 02/20/17 12:00 98 02/20/17 12:00 99 Bi-Pap 45 02/20/17 11:38 98 45 02/20/17 10:00 94 02/20/17 08:53 95 45 02/20/17 08:53 92 BiPAP 45 02/20/17 08:00 99.5 104 23 167/67 99 02/20/17 08:00 96 Bi-Pap 60 02/20/17 08:00 105 02/20/17 06:30 94 BiPAP 60 02/20/17 06:30 94 Bi-Pap 02/20/17 06:30 94 60 02/20/17 06:00 109 31 181/81 89 02/20/17 05:45 109 33 194/87 88 02/20/17 05:40 88 13.00 02/20/17 04:51 93 Partial Non-Rebreather 11.00 02/20/17 04:30 98.8 99 20 176/79 94 02/20/17 03:21 78 02/20/17 03:09 97 Simple Mask 6.00 02/20/17 02:03 97 Simple Mask 6.00 02/20/17 00:12 95 Simple Mask 6.00 02/20/17 00:00 98.7 79 20 156/66 96 02/19/17 22:03 Simple Mask 6.00 02/19/17 20:00 99.4 76 18 146/67 95 02/19/17 16:00 98.7 88 16 171/70 96 Physical Exam CONSTITUTIONAL/GENERAL: This is an adequately nourished but very weak appearing patient, in no apparent distress. TUBES/LINES/DRAINS: BiPAP, Vas-Cath, peripheral IV ENT: Hearing grossly normal. Nose without bleeding or purulent drainage. Throat without visible erythema, exudates, masses, or lesions. NECK: Trachea midline. Supple, nontender. No palpable thyroid enlargement or nodularity. CARDIOVASCULAR: Regular rate and rhythm without murmurs, gallops, or rubs. No JVD. Peripheral pulses symmetric. RESPIRATORY/CHEST: Symmetric, unlabored respirations. Scattered rhonchi and a few rales bilateral. GASTROINTESTINAL: Abdomen soft, non-tender, obese. No hepato-splenomegaly, or palpable masses. Mild tenderness in the upper abdomen without guarding. Bowel sounds present. MUSCULOSKELETAL: Extremities without clubbing, cyanosis, or edema. No joint tenderness or effusion noted. No calf tenderness. No mottling or clubbing. NEUROLOGICAL: Awake and alert. She appears profoundly weak, and is having difficulty speaking with the BiPAP in place. There is decreased sensation in the legs that she attributes to her diabetic neuropathy. PSYCHIATRIC: No obvious anxiety/depression. no apparent hallucinations or other psychotic thought process. . Diagnostic Tests Laboratory Laboratory Tests Test 02/18/17 02/19/17 02/19/17 02/20/17 11:28 08:05 13:37 05:45 White Blood Count 14.3 TH/MM3 16.4 TH/MM3 (4.0-11.0) (4.0-11.0) Red Blood Count 3.90 MIL/MM3 3.98 MIL/MM3 (4.00-5.30) (4.00-5.30) Hemoglobin 8.1 GM/DL 8.3 GM/DL (11.6-15.3) (11.6-15.3) Hematocrit 26.4 % 26.6 % (35.0-46.0) (35.0-46.0) Mean Corpuscular Volume 67.6 FL 66.9 FL (80.0-100.0) (80.0-100.0) Mean Corpuscular Hemoglobin 20.8 PG 20.9 PG (27.0-34.0) (27.0-34.0) Mean Corpuscular Hemoglobin 30.8 % 31.2 % Concent (32.0-36.0) (32.0-36.0) Red Cell Distribution Width 16.4 % 16.6 % (11.6-17.2) (11.6-17.2) Platelet Count 454 TH/MM3 483 TH/MM3 (150-450) (150-450) Mean Platelet Volume 8.6 FL 8.6 FL (7.0-11.0) (7.0-11.0) Neutrophils (%) (Auto) 78.6 % 77.1 % (16.0-70.0) (16.0-70.0) Lymphocytes (%) (Auto) 9.5 % 10.1 % (9.0-44.0) (9.0-44.0) Monocytes (%) (Auto) 8.1 % (0.0-8.0) 9.8 % (0.0-8.0) Eosinophils (%) (Auto) 3.4 % (0.0-4.0) 2.4 % (0.0-4.0) Basophils (%) (Auto) 0.4 % (0.0-2.0) 0.6 % (0.0-2.0) Neutrophils # (Auto) 11.2 TH/MM3 12.6 TH/MM3 (1.8-7.7) (1.8-7.7) Lymphocytes # (Auto) 1.4 TH/MM3 1.7 TH/MM3 (1.0-4.8) (1.0-4.8) Monocytes # (Auto) 1.2 TH/MM3 1.6 TH/MM3 (0-0.9) (0-0.9) Eosinophils # (Auto) 0.5 TH/MM3 0.4 TH/MM3 (0-0.4) (0-0.4) Basophils # (Auto) 0.1 TH/MM3 0.1 TH/MM3 (0-0.2) (0-0.2) CBC Comment DIFF FINAL DIFF FINAL Differential Comment Sodium Level 137 MEQ/L 135 MEQ/L (136-145) (136-145) Potassium Level 5.2 MEQ/L 4.9 MEQ/L (3.5-5.1) (3.5-5.1) Chloride Level 95 MEQ/L 93 MEQ/L (98-107) (98-107) Carbon Dioxide Level 30.6 MEQ/L 29.0 MEQ/L (21.0-32.0) (21.0-32.0) Anion Gap 11 MEQ/L (5-15) 13 MEQ/L (5-15) Blood Urea Nitrogen 57 MG/DL (7-18) 71 MG/DL (7-18) Creatinine 7.05 MG/DL 8.17 MG/DL (0.50-1.00) (0.50-1.00) Estimat Glomerular Filtration 7 ML/MIN (>89) 6 ML/MIN (>89) Rate Random Glucose 145 MG/DL 199 MG/DL (74-106) (74-106) Calcium Level 8.1 MG/DL 8.1 MG/DL (8.5-10.1) (8.5-10.1) Total Bilirubin 0.4 MG/DL (0.2-1.0) Aspartate Amino Transf 19 U/L (15-37) (AST/SGOT) Alanine Aminotransferase 25 U/L (10-53) (ALT/SGPT) Alkaline Phosphatase 150 U/L (45-117) Total Protein 7.6 GM/DL (6.4-8.2) Albumin 2.1 GM/DL (3.4-5.0) Prothrombin Time 10.8 SEC (9.8-11.6) Prothromb Time International 1.0 RATIO Ratio Activated Partial 38.8 SEC Thromboplast Time (24.3-30.1) Blood Gas Puncture Site RT RADIAL Blood Gas Patient Temperature 98.6 Blood Gas HCO3 30 mmol/L (22-26) Blood Gas Base Excess 3.5 mmol/L (-2-2) Blood Gas Oxygen Saturation 82 % (90-100) Arterial Blood pH 7.28 (7.380-7.420) Arterial Blood Partial 65 mmHg (38-42) Pressure CO2 Arterial Blood Partial 55 mmHg Pressure O2 (61-120) Arterial Blood Oxygen Content 11.1 Vol % (12.0-20.0) Arterial Blood 1.0 % (0-4) Carboxyhemoglobin Arterial Blood Methemoglobin 0.0 % (0-2) Blood Gas Hemoglobin 9.6 G/DL (12.0-16.0) Oxygen Delivery Device PRB Blood Gas Liter Flow 13 L/M Test 02/20/17 02/20/17 02/20/17 02/20/17 07:10 07:48 07:55 09:36 Nasal Screen MRSA (PCR) MRSA NOT DETECTED (NOT DETECT) White Blood Count 16.4 TH/MM3 (4.0-11.0) Red Blood Count 4.44 MIL/MM3 (4.00-5.30) Hemoglobin 9.3 GM/DL (11.6-15.3) Hematocrit 29.9 % (35.0-46.0) Mean Corpuscular Volume 67.4 FL (80.0-100.0) Mean Corpuscular Hemoglobin 21.0 PG (27.0-34.0) Mean Corpuscular Hemoglobin 31.1 % Concent (32.0-36.0) Red Cell Distribution Width 16.5 % (11.6-17.2) Platelet Count 492 TH/MM3 (150-450) Mean Platelet Volume 8.4 FL (7.0-11.0) Sodium Level 133 MEQ/L (136-145) Potassium Level 4.9 MEQ/L (3.5-5.1) Chloride Level 93 MEQ/L (98-107) Carbon Dioxide Level 31.1 MEQ/L (21.0-32.0) Anion Gap 9 MEQ/L (5-15) Blood Urea Nitrogen 47 MG/DL (7-18) Creatinine 6.21 MG/DL (0.50-1.00) Estimat Glomerular Filtration 8 ML/MIN (>89) Rate Random Glucose 213 MG/DL (74-106) Calcium Level 8.0 MG/DL (8.5-10.1) Blood Gas Puncture Site RT RADIAL Blood Gas Patient Temperature 98.6 Blood Gas HCO3 29 mmol/L (22-26) Blood Gas Base Excess 4.0 mmol/L (-2-2) Blood Gas Oxygen Saturation 94 % (90-100) Arterial Blood pH 7.37 (7.380-7.420) Arterial Blood Partial 52 mmHg (38-42) Pressure CO2 Arterial Blood Partial 82 mmHg Pressure O2 (61-120) Arterial Blood Oxygen Content 11.3 Vol % (12.0-20.0) Arterial Blood 1.4 % (0-4) Carboxyhemoglobin Arterial Blood Methemoglobin 0.9 % (0-2) Blood Gas Hemoglobin 8.5 G/DL (12.0-16.0) Oxygen Delivery Device BIPAP Blood Gas Ventilator Setting 10/5 Blood Gas Inspired Oxygen 40 % Prothrombin Time 10.8 SEC (9.8-11.6) Prothromb Time International 1.0 RATIO Ratio Activated Partial 30.0 SEC Thromboplast Time (24.3-30.1) Result Diagram: 02/20/17 0748 02/20/17 0748 Imaging Last Impressions Chest X-Ray 02/20/17 0000 Signed Impressions: Service Date/Time: Monday, February 20, 2017 05:45 - CONCLUSION: Increasing airspace disease, stable effusions. Juan De Souza MD Chest Ultrasound 02/17/17 0000 Signed Impressions: Service Date/Time: Friday, February 17, 2017 22:18 - CONCLUSION: Small right pleural effusion estimated at 252 cc. Kevin Sofia MD Catheter Placement X-Ray 02/17/17 0000 Signed Impressions: Service Date/Time: Saturday, February 18, 2017 09:29 - CONCLUSION: Uncomplicated venous catheter change as above. Kolby Hughes Jr., MD Lower Extremity Ultrasound 02/16/17 0000 Signed Impressions: Service Date/Time: Thursday, February 16, 2017 20:41 - CONCLUSION: Negative exam. No evidence of deep venous thrombosis. Kevin Sofia MD Abdomen X-Ray 02/14/17 0000 Signed Impressions: Service Date/Time: Tuesday, February 14, 2017 14:20 - CONCLUSION: 1. No bowel obstruction or ileus. 2. Degenerative changes involving the lumbar and lower thoracic spine. Sadi Chilel MD Percutaneous Cholangiogram 02/06/17 0000 Signed Impressions: Service Date/Time: Monday, February 06, 2017 15:15 - CONCLUSION: Uncomplicated percutaneous cholecystostomy as above. Thick inspissated bile was noted. The drainage is fairly low given the size of the gallbladder and therefore a CT will be performed to confirm appropriate positioning of the cholecystostomy tube. Kolby Hughes Jr., MD Abdomen CT 02/06/17 0000 Signed Impressions: Service Date/Time: Monday, February 06, 2017 16:21 - CONCLUSION: Interval cholecystostomy tube placement. Worsening parenchymal disease in the lung bases. Ney Lutz MD Abdomen/Pelvis CT 02/05/17 1656 Signed Impressions: Service Date/Time: January 18:15 - CONCLUSION: 1. Gallbladder is abnormal. It is markedly distended with gallbladder wall thickening and mild induration of the pericholecystic fat concerning for cholecystitis. High attenuation within the gallbladder lumen may be related to sludge or clot. 2. Left basilar atelectasis and tiny left effusion. Juan De Souza MD Gall Bladder Ultrasound 02/05/17 0000 Signed Impressions: Service Date/Time: January 20:39 - CONCLUSION: 1. The gallbladder is abnormal with findings corresponding to the findings on the CT exam. There is wall thickening, marked distention and the lumen is occupied by echogenic shadowing material which may reflect sludge or hemorrhage. A few stones are suspected. Juan De Souza MD Procedures Cholecystostomy tube placement 02/06/17 Vas-Cath 02/09/17 and 02/18/17 . Assessment and Plan Disease Oriented Problem List: (1) sepsis, cholecystitis with septic shock (2) renal failure on dialysis; possible ATN secondary to recent septic shock (3) cardiomyopathy, CHF, EF 30% Comment: Worsening dyspnea 02/20/17 (4) profound weakness of legs (5) diabetes, long-standing, with neuropathy (6) degenerative joint disease (7) hypertension (8) hyperlipidemia (9) anemia (history of sickle cell trait, thalassemia, and pernicious anemia) Symptom Scale: (1) pain 0-10 Scale: 3 (history of some chronic discomfort, recent abdominal pain) (2) dyspnea 0-10 Scale: 4 (subjectively better on BiPAP) Pertinent Non-Medical Issues Psychosocial: , former [employer], 3 living children. Spiritual: Spirituality has been very important for the patient. She has been an active member of a local [employer], and her clergy has come to visit her and has been supportive for her and the family. Legal: At this time, the patient has capacity for decision-making. The patient designates her daughter Johanny (nurse) as her healthcare surrogate. The rest of the family agrees. Ethical issues impacting care: None . Important Contacts Daughter/HCS: Johanny Arnold . Prognosis The patient has multiorgan system dysfunction or failure, including pulmonary, cardiac, and renal, and is admitted now with cholecystitis (not felt to be a surgical candidate at this time). She also had a recent hospitalization 2 months ago, and never regained her strength after that. She is now profoundly weak, does not move her legs, and has ongoing dyspnea requiring nonrebreather oxygen supplementation. Overall, her prognosis is quite guarded . Code Status: Full Code Plan * FULL CODE * DECISION-MAKING: At this time, the patient seems to be losing capacity for decision-making (with BiPAP in place). The patient designated her daughter Johanny (nurse) as her healthcare surrogate. The rest of the family agrees. * GOALS: The patient and her family want to continue aggressive care for now. We had a detailed discussion about resuscitation choices, and the patient wanted full aggressive care after discussion with her family. They understand that her multisystem dysfunction/failure portends a rather poor prognosis. * SYMPTOMS: Her dyspnea is being managed with BiPAP and rest. For pain, the patient has received intermittent oxycodone and ventral morphine, and she tells me that has been adequate. I have no further medication recommendations at this time.....unless the goals become more comfort oriented. * Palliative Care will continue to follow the patient during this hospitalization. . Time Spent Total Floor Time (mins): 41 Face to Face Time (mins): 13 >50% Counseling/Coord of Care: Yes (d/w Dr. Edmonds) Attestation To help prompt me to consider important information that might be impacting today's encounter and assessment, information from prior notes written by myself or my colleagues may have been "brought forward" into today's note. My signature on this note, however, is an attestation that I personally performed the exam, history, and/or decision-making noted today, and, unless otherwise indicated, the interactions with patient, family, and staff as well as the review of records all occurred today. I also attest that the listed assessment and stated plan reflect my best clinical judgment today based on the combination of historical information, prior notes, and today's exam/ interactions. When time spent is documented, it refers only to time spent today by the signer, or if indicated, combined time spent today by collaborating physician/nurse practitioner. Margot North MD Feb 20, 2017 13:58
--- NOTE | 2017-02-20 14:59 | PD.CARD.PN ---
Subjective Subjective Remarks Events noted Appears she had HD and only had 1L off, then was more and more SOB HD repeated and more fluid off Now off Bipap and on NC Objective Medications Current Medications Medications (Trade) Dose Ordered Sig/Lo Route Start Time Stop Time Status Last Admin (D50w (Vial) Inj) 50 ml UNSCH PRN IV 02/05/17 19:30 Glucagon 1 mg 1 mg UNSCH PRN OTHER 02/05/17 19:30 (NS 1000 ml Inj) 1,000 ml @ 50 mls/hr Q20H IV 02/05/17 19:16 Hold 02/06/17 04:19 (NS Flush) 2 ml UNSCH PRN IV FLUSH 02/05/17 19:30 (NS Flush) 2 ml BID IV FLUSH 02/05/17 21:00 02/20/17 10:03 (Zofran Inj) 4 mg Q6H PRN IVP 02/05/17 19:30 02/12/17 03:32 (Tylenol) 650 mg Q6H PRN PO 02/05/17 19:30 (Roxicodone) 5 mg Q4H PRN PO 02/05/17 19:30 02/12/17 22:10 (Terese-Colace) 1 tab BID PO 02/05/17 21:00 02/19/17 21:24 (Milk Of Magnesia Liq) 30 ml Q12H PRN PO 02/05/17 19:30 02/06/17 07:59 (Senokot) 17.2 mg Q12H PRN PO 02/05/17 19:30 (Dulcolax Supp) 10 mg DAILY PRN RECTAL 02/05/17 19:30 (Lactulose Liq) 30 ml DAILY PRN PO 02/05/17 19:30 02/06/17 17:46 (Norvasc) 10 mg DAILY PO 02/06/17 09:00 Hold 02/06/17 07:57 (Coreg) 3.125 mg Q12HR PO 02/05/17 21:00 02/19/17 21:23 (Zanaflex) 4 mg TID PO 02/06/17 09:00 02/19/17 18:05 (Levemir Inj) 10 units DAILY SQ 02/06/17 09:00 02/18/17 12:00 (Morphine Inj) 1 mg Q4HR PRN IV 02/06/17 12:00 02/17/17 17:57 (Proamatine) 10 mg TID@07,12,17 PO 02/08/17 17:00 02/20/17 12:58 Miscellaneous Information Patient in critical care unit? Ass... [id number] .XX 02/08/17 23:00 (NS Flush) UNSCH PRN IVF 02/09/17 15:30 Heparin Sodium (Porcine) UNSCH PRN IV FLUSH 02/09/17 15:30 (NS 1000 ml Inj) 1,000 ml @ 0 mls/hr Q0M PRN IV 02/09/17 15:39 02/19/17 13:00 Heparin Sodium (Porcine) 8000 units 8,000 units UNSCH PRN IVF 02/09/17 15:45 Sodium Chloride 1,000 ml @ 200 mls/hr Q5H PRN IV 02/09/17 15:39 (NS 1000 ml Inj) 1,000 ml @ 0 mls/hr Q0M PRN IV 02/09/17 15:39 (Mannitol Inj) 12.5 gm UNSCH PRN IV 02/09/17 15:45 (Albumin 25% Inj) 25 gm UNSCH PRN IV 02/09/17 15:45 02/14/17 10:23 (NS Flush) 5 ml UNSCH PRN IV FLUSH 02/09/17 15:45 02/14/17 10:15 (Heparin Inj) UNSCH PRN .XX 02/09/17 15:45 02/19/17 13:00 (Gentamicin (Dialysis) Inj) 20 mg UNSCH PRN IV 02/09/17 15:45 02/19/17 13:00 (Zofran Inj) 4 mg UNSCH PRN IV 02/09/17 15:45 02/10/17 09:36 (Tylenol) 650 mg UNSCH PRN PO 02/09/17 15:45 (Benadryl) 25 mg UNSCH PRN PO 02/09/17 15:45 02/17/17 08:45 (Nitrostat Sl) 0.4 mg UNSCH PRN SL 02/09/17 15:45 (Catapres) 0.1 mg UNSCH PRN PO 02/09/17 15:45 (Gelfoam 12 Mm/7 Mm Top) 1 foam UNSCH PRN TOP 02/09/17 15:45 (Melatonin) 5 mg HS PRN PO 02/10/17 17:15 02/10/17 22:08 (Epogen Inj) 20,000 units UNSCH PRN IV 02/12/17 10:15 02/19/17 13:01 (Roxicodone) 10 mg Q4H PRN PO 02/13/17 11:15 02/19/17 23:55 (Lasix Inj) 40 mg DAILY IV PUSH 02/16/17 09:00 02/20/17 10:03 (Heparin Inj) 5,000 units Q12HR SQ 02/16/17 21:00 02/20/17 10:02 (Aspirin Chew) 81 mg DAILY CHEW 02/17/17 09:00 02/18/17 11:30 Vital Signs / I&O Vital Signs Date Time Temp Pulse Resp B/P Pulse Ox O2 Delivery O2 Flow Rate FiO2 02/20/17 12:00 100.2 98 24 158/70 97 02/20/17 12:00 98 02/20/17 12:00 99 Bi-Pap 45 02/20/17 11:38 98 45 02/20/17 10:00 94 02/20/17 08:53 95 45 02/20/17 08:53 92 BiPAP 45 02/20/17 08:00 99.5 104 23 167/67 99 02/20/17 08:00 96 Bi-Pap 60 02/20/17 08:00 105 02/20/17 06:30 94 BiPAP 60 02/20/17 06:30 94 Bi-Pap 02/20/17 06:30 94 60 02/20/17 06:00 109 31 181/81 89 02/20/17 05:45 109 33 194/87 88 02/20/17 05:40 88 13.00 02/20/17 04:51 93 Partial Non-Rebreather 11.00 02/20/17 04:30 98.8 99 20 176/79 94 02/20/17 03:21 78 02/20/17 03:09 97 Simple Mask 6.00 02/20/17 02:03 97 Simple Mask 6.00 02/20/17 00:12 95 Simple Mask 6.00 02/20/17 00:00 98.7 79 20 156/66 96 02/19/17 22:03 Simple Mask 6.00 02/19/17 20:00 99.4 76 18 146/67 95 02/19/17 16:00 98.7 88 16 171/70 96 I/O 02/19/17 02/19/17 02/19/17 02/20/17 02/20/17 02/20/17 07:00 15:00 23:00 07:00 15:00 23:00 Output Total 200 ml 2600 ml 250 ml 200 ml Balance -200 ml -2600 ml -250 ml -200 ml Output Urine Total 200 ml 250 ml 200 ml Drainage Total 100 ml 0 ml Hemodialysis 2500 ml Physical Exam GENERAL: NAD, alert and awake SKIN: Warm and dry. HEAD: Atraumatic. Normocephalic. EYES: Pupils equal and round. No scleral icterus. No injection or drainage. ENT: No nasal bleeding or discharge. Mucous membranes pink and moist. NECK: Trachea midline. No JVD. CARDIOVASCULAR: Regular rate and rhythm. RESPIRATORY: No accessory muscle use. Decreased breath sounds bilaterally, mild crackles GASTROINTESTINAL: Abdomen soft, non-tender, nondistended. Hepatic and splenic margins not palpable. MUSCULOSKELETAL: Extremities without clubbing, cyanosis, or edema. No obvious deformities. NEUROLOGICAL: Awake and alert. No obvious cranial nerve deficits. Motor grossly within normal limits. Five out of 5 muscle strength in the arms and legs. Normal speech. PSYCHIATRIC: Appropriate mood and affect; insight and judgment normal. Laboratory Laboratory Tests Test 02/20/17 02/20/17 02/20/17 02/20/17 05:45 07:10 07:48 07:55 Blood Gas Puncture Site RT RADIAL RT RADIAL Blood Gas Patient Temperature 98.6 98.6 Blood Gas HCO3 30 mmol/L 29 mmol/L Blood Gas Base Excess 3.5 mmol/L 4.0 mmol/L Blood Gas Oxygen Saturation 82 % 94 % Arterial Blood pH 7.28 7.37 Arterial Blood Partial 65 mmHg 52 mmHg Pressure CO2 Arterial Blood Partial 55 mmHg 82 mmHg Pressure O2 Arterial Blood Oxygen Content 11.1 Vol % 11.3 Vol % Arterial Blood 1.0 % 1.4 % Carboxyhemoglobin Arterial Blood Methemoglobin 0.0 % 0.9 % Blood Gas Hemoglobin 9.6 G/DL 8.5 G/DL Oxygen Delivery Device PRB BIPAP Blood Gas Liter Flow 13 L/M Nasal Screen MRSA (PCR) MRSA NOT DETECTED White Blood Count 16.4 TH/MM3 Red Blood Count 4.44 MIL/MM3 Hemoglobin 9.3 GM/DL Hematocrit 29.9 % Mean Corpuscular Volume 67.4 FL Mean Corpuscular Hemoglobin 21.0 PG Mean Corpuscular Hemoglobin 31.1 % Concent Red Cell Distribution Width 16.5 % Platelet Count 492 TH/MM3 Mean Platelet Volume 8.4 FL Sodium Level 133 MEQ/L Potassium Level 4.9 MEQ/L Chloride Level 93 MEQ/L Carbon Dioxide Level 31.1 MEQ/L Anion Gap 9 MEQ/L Blood Urea Nitrogen 47 MG/DL Creatinine 6.21 MG/DL Estimat Glomerular Filtration 8 ML/MIN Rate Random Glucose 213 MG/DL Calcium Level 8.0 MG/DL Blood Gas Ventilator Setting 04/23 Blood Gas Inspired Oxygen 40 % Test 02/20/17 09:36 Prothrombin Time 10.8 SEC Prothromb Time International 1.0 RATIO Ratio Activated Partial 30.0 SEC Thromboplast Time Assessment and Plan Problem List: (1) Cholecystitis (2) Anemia (3) Acute kidney failure (4) Stage 4 chronic kidney disease (5) Diabetes mellitus (6) CHF (congestive heart failure) (7) Cardiomyopathy Assessment and Plan 1) SOB Possible due to decompensated CHF Weights have gone up as creatinine has gone up as well as decreased urine output HD/fluid management per nephrology When not getting full HD, appears to get fluid overloaded and increased oxygen demand 2) Cardiomyopathy of unknown cause, never evaluated Not the best candidate for revascularization with comorbidities and cholecystomy tube Con't with medical management for now 3) Agree with palliative care consultation Problem Qualifiers (1) Anemia: Chin Hernandez DO Feb 20, 2017 14:59
[2017-02-20] MEDS: ALBUMIN HUMAN 25% 25 GM/100 ML BAGP IV PRN (15:12)
[2017-02-20] MEDS: HEPARIN SODIUM - IV 10,000 UNITS/10 ML VIAL PRN (15:12)
[2017-02-20] MEDS: SODIUM CHLOR 0.9% 1000 ML INJ 1,000 ML IV PRN (15:13)
[2017-02-20] MEDS: GENTAMICIN SULFATE (DIALYSIS USE ONLY) 20 MG/2 ML VIAL IV PRN (15:13)
--- NOTE | 2017-02-20 16:53 | HHI.NPPN ---
Subjective History of Present Illness 66-year-old female with a past medical history of hypertension, diabetes mellitus, chronic kidney disease, anemia and chronic back pain, who was admitted because of abdominal pain, nausea and vomiting. I was called to see the patient because of elevated BUN and creatinine. The patient has known history of chronic kidney disease and she had acute kidney injury. Additional Remarks Patient is alert, seen after HD, develop more SOB, and now on NRM. Objective Data Data 02/19/17 02/20/17 19:00 07:00 Output Total 2600 ml 450 ml Balance -2600 ml -450 ml Output Urine Total 450 ml Drainage Total 100 ml 0 ml Hemodialysis 2500 ml Vital Signs Date Time Temp Pulse Resp B/P Pulse Ox O2 Delivery O2 Flow Rate FiO2 02/20/17 16:09 100 Non-Rebreather 15.00 02/20/17 12:00 100.2 98 24 158/70 97 02/20/17 12:00 98 02/20/17 12:00 99 Bi-Pap 45 02/20/17 11:38 98 45 02/20/17 10:00 94 02/20/17 08:53 95 45 02/20/17 08:53 92 BiPAP 45 02/20/17 08:00 99.5 104 23 167/67 99 02/20/17 08:00 96 Bi-Pap 60 02/20/17 08:00 105 02/20/17 06:30 94 BiPAP 60 02/20/17 06:30 94 Bi-Pap 02/20/17 06:30 94 60 02/20/17 06:00 109 31 181/81 89 02/20/17 05:45 109 33 194/87 88 02/20/17 05:40 88 13.00 02/20/17 04:51 93 Partial Non-Rebreather 11.00 02/20/17 04:30 98.8 99 20 176/79 94 02/20/17 03:21 78 02/20/17 03:09 97 Simple Mask 6.00 02/20/17 02:03 97 Simple Mask 6.00 02/20/17 00:12 95 Simple Mask 6.00 02/20/17 00:00 98.7 79 20 156/66 96 02/19/17 22:03 Simple Mask 6.00 02/19/17 20:00 99.4 76 18 146/67 95 -: 02/20/17 0748 02/20/17 0748 Physical Exam General Appearance: Anxious Appearance Remarks Mild resp. distress. Eyes Eye Exam: Pupils Equal Throat Throat Exam: Oral Mucosa [place] & Moist Neck Neck Exam: Neck Supple Pulmonary Resp Exam: Breath Sounds Equal, No Distress, Rhonchi, Decreased Bases, Diminished Breath Sounds Cardiology CV Exam: Regular, Normal Sinus Rhythm Gastrointestinal/Abdomen GI Exam: Soft, Bowel Sounds Present, Distended Extremeties Extremities Exam: Trace Edema Neurologic Neuro Exam: Alert, Awake, Oriented Psychiatric Psych Exam: Appropriate Responses Assessment/Plan Assessment Summary: GRADY/Acute Renal Failure, Hypotension, CKD Stage IV Problem List: (1) Diabetes mellitus (2) CHF (congestive heart failure) (3) Cholecystitis (4) Gallstones (5) Elevated LFTs (6) Anemia (7) Stage 4 chronic kidney disease (8) Acute kidney failure Plan Has been non oliguric, Creatinine still elevated. Most likely has ATN due to hypotension causing GRADY. Continue antibiotics. On Epogen with HD. Urine out put is better, still has increasing Creatinine. Patient develop worsening SOB. CXR noted, now has HD done again, 4 liters removed. BP is on lower side. Increase Lasix, possible HD again in AM. Problem Qualifiers (1) Anemia: Svitlana Cook MD Feb 20, 2017 16:53
--- NOTE | 2017-02-20 19:52 | HHI.CCPN ---
Subjective Remarks/Hospital Course Hospital Course: 66-year-old female with a past medical history of hypertension, congestive heart failure with a last Echo 12/17/16 w/ EF 30-35%), chronic kidney disease stage IV, Chronic Anemia and Thalassemia who presented to the ER w/ complaints of abdominal pain, nausea and vomiting since the night prior to admission. Denies fever, chills or diarrhea. On arrival, BP 150/72, HR 97, O2 sat 99% on RA, Temp 99.0. CBC at baseline. Creatinine 2.75, previously 3.04 on 12/29/16. LFTs mildly elevated comparison to previous. UA negative. CT Abd/Pelvis w/ abnormal gallbladder, markedly distended gallbladder with wall thickening and mild induration of pericholecystic fat concerning for cholecystitis, so she underwent cholecystostomy tube placement 02/06/2017. She was admitted postprocedure to medical surgical floor. Today she was found to be slightly hypotensive and hypothermic with a temperature 96.2. Critical-care medicine was consulted for sepsis. Subjective: 02/08: Cr continues to rise. continues to be hypotensive as well. remains on 2L o2 by [place]. nephrology started bumex infusion. 02/09: Tmax 99.5. The patient continues to complain of chest pain, abdominal pain. No further episodes of nausea and vomiting. Cholecystostomy tube drained approximately 30 cc over the last 24 hours. She was noted to have no urine output over the last 18 hours, despite being on sodium bicarbonate and Bumex infusion. There is reference per nephrology of possible dialysis today. Coag studies obtained for possible IR placement of vascath today. Chemistry results pending. 02/10: Patient tolerating dialysis, 1 L removed yesterday, 1 L removed this a.m. hemodynamically stable. Patient continues to have a very poor appetite. Nutritional consult ordered as well as calorie count. Patient is resistant in movement physical therapy has been consulted for evaluation and treatment. Small amount of cholecystostomy output noted. 02/20: reconsulted around 0700 for hypoxia. I saw and examined the patient on arrival to the [facility] from [facility] in urgent transfer for NIPPV. delayed note entry. patient tachypneic and labored breathing. gross volume overload by CXR. using accessory muscles to breath. no additional information is obtainable from the patient due to her dyspnea. given 40 lasix iv without much improvement. Objective Vital Signs Date Time Temp Pulse Resp B/P Pulse Ox O2 Delivery O2 Flow Rate FiO2 02/20/17 18:00 96 02/20/17 17:00 100 Partial Rebreather 12.00 02/20/17 16:00 99.0 21 110/57 02/20/17 12:00 45 Intake and Output 02/19/17 02/19/17 02/20/17 08:00 16:00 00:00 Output Total 200 ml 2600 ml 250 ml Balance -200 ml -2600 ml -250 ml Result Diagram: 02/20/17 0748 02/20/17 0748 Other Results Laboratory Tests Test 02/20/17 02/20/17 05:45 07:55 Blood Gas Puncture Site RT RADIAL RT RADIAL Blood Gas Patient Temperature 98.6 98.6 Blood Gas HCO3 30 mmol/L 29 mmol/L (22-26) (22-26) Blood Gas Base Excess 3.5 mmol/L 4.0 mmol/L (-2-2) (-2-2) Blood Gas Oxygen Saturation 82 % (90-100) 94 % (90-100) Arterial Blood pH 7.28 7.37 (7.380-7.420) (7.380-7.420) Arterial Blood Partial 65 mmHg (38-42) 52 mmHg (38-42) Pressure CO2 Arterial Blood Partial 55 mmHg 82 mmHg Pressure O2 (61-120) (61-120) Arterial Blood Oxygen Content 11.1 Vol % 11.3 Vol % (12.0-20.0) (12.0-20.0) Arterial Blood 1.0 % (0-4) 1.4 % (0-4) Carboxyhemoglobin Arterial Blood Methemoglobin 0.0 % (0-2) 0.9 % (0-2) Blood Gas Hemoglobin 9.6 G/DL 8.5 G/DL (12.0-16.0) (12.0-16.0) Oxygen Delivery Device PRB BIPAP Blood Gas Liter Flow 13 L/M Blood Gas Ventilator Setting 10/5 Blood Gas Inspired Oxygen 40 % Objective Remarks GENERAL: Frail ill appearing female, lying in bed, in respiratory distress SKIN: Warm and dry. HEAD: Normocephalic. EYES: No scleral icterus. No injection or drainage. NECK: trachea midline. right IJ Vas-Cath in situ CARDIOVASCULAR: Regular rate and rhythm RESPIRATORY: Breath sounds equal bilaterally. bilateral coarse sounds. significant accessory muscle use GASTROINTESTINAL: Abdomen soft, non-tender, nondistended. Right cholecystostomy tube draining minimal bilious secretions MUSCULOSKELETAL: No cyanosis, 2+ edema. NEURO: awake, oriented. Follows commands 4 extremities Procedures Vas-Cath placement per IR cholecystostomy tube placement A/P Assessment and Plan Assessment: 66yF with gross volume overload, pulmonary edema secondary to systolic CHF exacerbation, ESRD on IHD. In decompensated heart failure and acute hyoxic respiratory failure. will place on BiPAP. will discuss with Nephrology-- needs urgent dialysis for volume overload with pulmonary compromise. critically ill at this time. may need thoracentesis of the pleural effusions to help with hypoxia, but will wait until after HD and re-evaluate. Systolic CHF exacerbation causing acute hypoxic respiratory failure requiring non-invasive positive pressure ventilation. -- urgent HD today -- need volume removal -- may require thoracentesis, will re-evaluate after IHD Subacute on chronic kidney injury requiring IHD - worsening heart failure exacerbation, needs additional IHD today. may need vasopressors to help support BP while in dialysis. Hypotension -- likely secondary to CHF exacerbation -- may be forced to add vasopressors during IHD. Diabetes mellitus - Levemir and insulin sliding scale DVT GI prophylaxis - Teds SCDs - 1800 ADA Critical Care time: 42 minutes, exclusive of separately billable procedures. Kehinde Edmonds MD Feb 20, 2017 19:52
[2017-02-20 21:08] LABS: MEAN CORPUSCULAR HGB CONC 29.7 % (32.0-36.0)
[2017-02-21] VITALS (18 sets, daily range): BP systolic 123–171; BP diastolic 63–73; PULSE 75–92; RESP 19–26; TEMP 97.7–99.3; O2SAT 96–100
[2017-02-21 05:50] LABS: HEMATOCRIT 27.2 % (35.0-46.0); MEAN CELL VOLUME 68.9 FL (80.0-100.0); MEAN CORPUSCULAR HEMOGLOBIN 20.5 PG (27.0-34.0); PLATELET COUNT 513 TH/MM3 (150-450); RED BLOOD COUNT 3.95 MIL/MM3 (4.00-5.30); RED CELL DISTRIBUTION WIDTH 16.9 % (11.6-17.2); REVIEW FLAG FINAL; WHITE BLOOD COUNT 13.2 TH/MM3 (4.0-11.0)
[2017-02-21 06:28] LABS: BICARBONATE 27.5 MEQ/L (21.0-32.0)
[2017-02-21] MEDS: INSULIN ASPART SUPPLEMENTAL SCALE SQ SCH ×4 (06:58→21:00)
[2017-02-21] MEDS: MIDODRINE 5 MG TAB PO SCH ×3 (07:00→17:00)
[2017-02-21 07:16] LABS: POTASSIUM 4.8 MEQ/L (3.5-5.1)
[2017-02-21] MEDS: RESP: ALBUTEROL 2.5 MG/IPRATROPIUM 0.5 MG NEB (SCH) NEB ×4 (08:32→19:55)
[2017-02-21] MEDS: INSULIN DETEMIR 100 UNITS/ML VIAL SQ SCH (09:00)
[2017-02-21] MEDS: DOCUSATE SODIUM 50 MG/SENNA 8.6 MG TAB PO SCH ×2 (09:00→21:31)
[2017-02-21] MEDS: HEPARIN SODIUM - SQ 10,000 UNITS/ML VIAL SQ SCH ×2 (09:47→21:31)
[2017-02-21] MEDS: CARVEDILOL 3.125 MG TAB PO SCH ×2 (09:48→21:31)
[2017-02-21] MEDS: FUROSEMIDE 40 MG/4 ML VIAL IV PUSH SCH ×2 (09:48→21:49)
[2017-02-21] MEDS: ASPIRIN 81 MG CHEW TAB CHEW SCH (09:51)
--- NOTE | 2017-02-21 10:03 | HHI.NPPN ---
Subjective History of Present Illness 66-year-old female with a past medical history of hypertension, diabetes mellitus, chronic kidney disease, anemia and chronic back pain, who was admitted because of abdominal pain, nausea and vomiting. I was called to see the patient because of elevated BUN and creatinine. The patient has known history of chronic kidney disease and she had acute kidney injury. Additional Remarks Needed emergent dialysis yesterday, UF: 4 liters yesterday. Objective Data Data 02/20/17 02/21/17 19:00 07:00 Intake Total 0 ml 0 ml Output Total 4255 ml 205 ml Balance -4255 ml -205 ml Intake Oral 0 ml IV Total 0 ml 0 ml Output Urine Total 250 ml 150 ml Drainage Total 5 ml 55 ml Hemodialysis 4000 ml # Bowel Movements 0 3 Vital Signs Date Time Temp Pulse Resp B/P Pulse Ox O2 Delivery O2 Flow Rate FiO2 02/21/17 08:46 96 Nasal Cannula 5.00 02/21/17 08:31 100 Partial Rebreather 10.00 02/21/17 06:00 84 02/21/17 04:00 98 Non-Rebreather 11.00 02/21/17 04:00 89 02/21/17 04:00 99.3 89 26 164/71 100 02/21/17 02:00 90 02/21/17 00:00 98 Non-Rebreather 11.00 02/21/17 00:00 83 02/21/17 00:00 98.7 83 19 136/63 98 02/20/17 22:00 89 02/20/17 21:00 98 Non-Rebreather 11.00 02/20/17 20:00 99.2 100 23 191/81 95 02/20/17 20:00 96 02/20/17 20:00 90 Venturi Mask 6.00 02/20/17 18:00 96 02/20/17 17:00 100 Partial Rebreather 12.00 02/20/17 16:09 100 Non-Rebreather 15.00 02/20/17 16:00 94 02/20/17 16:00 99.0 94 21 110/57 100 02/20/17 16:00 100 Non-Rebreather 15.00 02/20/17 14:00 94 02/20/17 12:00 100.2 98 24 158/70 97 02/20/17 12:00 98 02/20/17 12:00 99 Bi-Pap 45 02/20/17 11:38 98 45 -: 02/21/17 0356 02/21/17 0356 Physical Exam Eyes Eye Exam: Pupils Equal Throat Throat Exam: Oral Mucosa [place] & Moist Neck Neck Exam: Neck Supple Pulmonary Resp Exam: Breath Sounds Equal, No Distress, Rhonchi, Decreased Bases, Diminished Breath Sounds Cardiology CV Exam: Regular, Normal Sinus Rhythm Gastrointestinal/Abdomen GI Exam: Soft, Bowel Sounds Present, Distended Extremeties Extremities Exam: Trace Edema Neurologic Neuro Exam: Alert, Awake, Oriented Psychiatric Psych Exam: Appropriate Responses Assessment/Plan Assessment Summary: GRADY/Acute Renal Failure, Hypotension, CKD Stage IV Problem List: (1) Diabetes mellitus (2) CHF (congestive heart failure) (3) Cholecystitis (4) Gallstones (5) Elevated LFTs (6) Anemia (7) Stage 4 chronic kidney disease (8) Acute kidney failure Plan Had been on dialysis TTS, dialyzed on Thursday due to hypoxia, impending respiratory failure. Continue dialysis support. Avoid nephrotoxic agents. Increase Lasix. Problem Qualifiers (1) Anemia: Cristian White MD Feb 21, 2017 10:03
--- NOTE | 2017-02-21 11:33 | HHI.CCPN ---
Subjective Remarks/Hospital Course Hospital Course: 66-year-old female with a past medical history of hypertension, congestive heart failure with a last Echo 12/17/16 w/ EF 30-35%), chronic kidney disease stage IV, Chronic Anemia and Thalassemia who presented to the ER w/ complaints of abdominal pain, nausea and vomiting since the night prior to admission. Denies fever, chills or diarrhea. On arrival, BP 150/72, HR 97, O2 sat 99% on RA, Temp 99.0. CBC at baseline. Creatinine 2.75, previously 3.04 on 12/29/16. LFTs mildly elevated comparison to previous. UA negative. CT Abd/Pelvis w/ abnormal gallbladder, markedly distended gallbladder with wall thickening and mild induration of pericholecystic fat concerning for cholecystitis, so she underwent cholecystostomy tube placement 02/06/2017. She was admitted postprocedure to medical surgical floor. Today she was found to be slightly hypotensive and hypothermic with a temperature 96.2. Critical-care medicine was consulted for sepsis. Subjective: 02/08: Cr continues to rise. continues to be hypotensive as well. remains on 2L o2 by [place]. nephrology started bumex infusion. 02/09: Tmax 99.5. The patient continues to complain of chest pain, abdominal pain. No further episodes of nausea and vomiting. Cholecystostomy tube drained approximately 30 cc over the last 24 hours. She was noted to have no urine output over the last 18 hours, despite being on sodium bicarbonate and Bumex infusion. There is reference per nephrology of possible dialysis today. Coag studies obtained for possible IR placement of vascath today. Chemistry results pending. 02/10: Patient tolerating dialysis, 1 L removed yesterday, 1 L removed this a.m. hemodynamically stable. Patient continues to have a very poor appetite. Nutritional consult ordered as well as calorie count. Patient is resistant in movement physical therapy has been consulted for evaluation and treatment. Small amount of cholecystostomy output noted. 02/20: reconsulted around 0700 for hypoxia. I saw and examined the patient on arrival to the [facility] from [facility] in urgent transfer for NIPPV. delayed note entry. patient tachypneic and labored breathing. gross volume overload by CXR. using accessory muscles to breath. no additional information is obtainable from the patient due to her dyspnea. given 40 lasix iv without much improvement. 02/21: intermittent aflutter RVR overnight. now on NC o2. plan for IHD again. will do bedside lung ultrasound to eval how much pleural fluid persists, still may need thoracentesis. Objective Vital Signs Date Time Temp Pulse Resp B/P Pulse Ox O2 Delivery O2 Flow Rate FiO2 02/21/17 08:46 96 Nasal Cannula 5.00 02/21/17 06:00 84 02/21/17 04:00 99.3 26 164/71 02/20/17 12:00 45 Intake and Output 02/20/17 02/20/17 02/20/17 07:59 15:59 23:59 Intake Total 0 ml 0 ml Output Total 200 ml 255 ml 4105 ml Balance -200 ml -255 ml -4105 ml Result Diagram: 02/21/17 0356 02/21/17 0356 Objective Remarks GENERAL: Frail ill appearing female, lying in bed, no distress today. SKIN: Warm and dry. HEAD: Normocephalic. EYES: No scleral icterus. No injection or drainage. NECK: trachea midline. right IJ Vas-Cath in situ CARDIOVASCULAR: Regular rate and rhythm. sinus this morning. RESPIRATORY: Breath sounds equal bilaterally. bilateral coarse sounds. significant accessory muscle use GASTROINTESTINAL: Abdomen soft, non-tender, nondistended. Right cholecystostomy tube draining minimal bilious secretions MUSCULOSKELETAL: No cyanosis, 2+ edema. NEURO: awake, oriented. Follows commands 4 extremities Procedures Vas-Cath placement per IR cholecystostomy tube placement A/P Assessment and Plan Assessment: 66yF with gross volume overload, pulmonary edema secondary to systolic CHF exacerbation, ESRD on IHD. Clinically improving now with IHD 3 days in a row. Hypoxia improving. In decompensated heart failure and acute hyoxic respiratory failure. will place on BiPAP. will discuss with Nephrology-- needs urgent dialysis for volume overload with pulmonary compromise. critically ill at this time. may need thoracentesis of the pleural effusions to help with hypoxia, but will wait until after HD and re-evaluate. Systolic CHF exacerbation causing acute hypoxic respiratory failure requiring non-invasive positive pressure ventilation- clinically improving today. -- repeat IHD today. -- need volume removal -- may require thoracentesis, will re-evaluate today. Subacute on chronic kidney injury requiring IHD - worsening heart failure exacerbation, needs additional IHD today. may need vasopressors to help support BP while in dialysis. Hypotension- improving. -- likely secondary to CHF exacerbation -- may be forced to add vasopressors during IHD. Diabetes mellitus - Levemir and insulin sliding scale DVT GI prophylaxis - Teds SCDs - 1800 Kehinde Palacio MD Feb 21, 2017 11:33
[2017-02-21] MEDS: SODIUM CHLORIDE 0.9% FLUSH 10 ML FLUSH IV FLUSH SCH ×2 (13:01→21:13)
--- NOTE | 2017-02-21 13:25 | EKG ---
Date Performed: 02/20/2017 Time Performed: 20:49:16 PTAGE: 66 years EKG: Atrial flutter with rapid ventricular response with 2:1 A-V block. Left bundle branch block Abnormal ECG PREVIOUS TRACING : 02/20/2017 06.09 Since previous tracing, no significant change noted DOCTOR: Carlos Riggs Interpretating Date/Time 02/21/2017 13:23:57
--- NOTE | 2017-02-21 13:31 | PD.CARD.PN ---
Subjective Subjective Remarks Events overnight noted Seen before HD, not significantly SOB but requiring increase oxygen Objective Medications Current Medications Medications (Trade) Dose Ordered Sig/Lo Route Start Time Stop Time Status Last Admin (D50w (Vial) Inj) 50 ml UNSCH PRN IV 02/05/17 19:30 Glucagon 1 mg 1 mg UNSCH PRN OTHER 02/05/17 19:30 (NS 1000 ml Inj) 1,000 ml @ 50 mls/hr Q20H IV 02/05/17 19:16 Hold 02/06/17 04:19 (NS Flush) 2 ml UNSCH PRN IV FLUSH 02/05/17 19:30 (NS Flush) 2 ml BID IV FLUSH 02/05/17 21:00 02/21/17 13:01 (Zofran Inj) 4 mg Q6H PRN IVP 02/05/17 19:30 02/12/17 03:32 (Tylenol) 650 mg Q6H PRN PO 02/05/17 19:30 (Roxicodone) 5 mg Q4H PRN PO 02/05/17 19:30 02/12/17 22:10 (Terese-Colace) 1 tab BID PO 02/05/17 21:00 02/19/17 21:24 (Milk Of Magnesia Liq) 30 ml Q12H PRN PO 02/05/17 19:30 02/06/17 07:59 (Senokot) 17.2 mg Q12H PRN PO 02/05/17 19:30 (Dulcolax Supp) 10 mg DAILY PRN RECTAL 02/05/17 19:30 (Lactulose Liq) 30 ml DAILY PRN PO 02/05/17 19:30 02/06/17 17:46 (Norvasc) 10 mg DAILY PO 02/06/17 09:00 Hold 02/06/17 07:57 (Coreg) 3.125 mg Q12HR PO 02/05/17 21:00 02/21/17 09:48 (Zanaflex) 4 mg TID PO 02/06/17 09:00 02/21/17 09:48 (Levemir Inj) 10 units DAILY SQ 02/06/17 09:00 02/18/17 12:00 (Morphine Inj) 1 mg Q4HR PRN IV 02/06/17 12:00 02/17/17 17:57 (Proamatine) 10 mg TID@,, PO 02/08/17 17:00 02/20/17 12:58 Miscellaneous Information Patient in critical care unit? Ass... Q361D .XX 02/08/17 23:00 (NS Flush) UNSCH PRN IVF 02/09/17 15:30 Heparin Sodium (Porcine) UNSCH PRN IV FLUSH 02/09/17 15:30 (NS 1000 ml Inj) 1,000 ml @ 0 mls/hr Q0M PRN IV 02/09/17 15:39 02/20/17 15:13 Heparin Sodium (Porcine) 8000 units 8,000 units UNSCH PRN IVF 02/09/17 15:45 Sodium Chloride 1,000 ml @ 200 mls/hr Q5H PRN IV 02/09/17 15:39 (NS 1000 ml Inj) 1,000 ml @ 0 mls/hr Q0M PRN IV 02/09/17 15:39 (Mannitol Inj) 12.5 gm UNSCH PRN IV 02/09/17 15:45 02/20/17 15:13 (Albumin 25% Inj) 25 gm UNSCH PRN IV 02/09/17 15:45 02/20/17 15:12 (NS Flush) 5 ml UNSCH PRN IV FLUSH 02/09/17 15:45 02/14/17 10:15 (Heparin Inj) UNSCH PRN .XX 02/09/17 15:45 02/20/17 15:12 (Gentamicin (Dialysis) Inj) 20 mg UNSCH PRN IV 02/09/17 15:45 02/20/17 15:13 (Zofran Inj) 4 mg UNSCH PRN IV 02/09/17 15:45 02/10/17 09:36 (Tylenol) 650 mg UNSCH PRN PO 02/09/17 15:45 (Benadryl) 25 mg UNSCH PRN PO 02/09/17 15:45 02/17/17 08:45 (Nitrostat Sl) 0.4 mg UNSCH PRN SL 02/09/17 15:45 (Catapres) 0.1 mg UNSCH PRN PO 02/09/17 15:45 (Gelfoam 12 Mm/7 Mm Top) 1 foam UNSCH PRN TOP 02/09/17 15:45 (Melatonin) 5 mg HS PRN PO 02/10/17 17:15 02/10/17 22:08 (Epogen Inj) 20,000 units UNSCH PRN IV 02/12/17 10:15 02/19/17 13:01 (Roxicodone) 10 mg Q4H PRN PO 02/13/17 11:15 02/19/17 23:55 (Heparin Inj) 5,000 units Q12HR SQ 02/16/17 21:00 02/21/17 09:47 (Aspirin Chew) 81 mg DAILY CHEW 02/17/17 09:00 02/21/17 09:51 (Lasix Inj) 80 mg BID IV PUSH 02/21/17 21:00 Vital Signs / I&O Vital Signs Date Time Temp Pulse Resp B/P Pulse Ox O2 Delivery O2 Flow Rate FiO2 02/21/17 12:34 100 Nasal Cannula 5.00 02/21/17 08:46 96 Nasal Cannula 5.00 02/21/17 08:31 100 Partial Rebreather 10.00 02/21/17 06:00 84 02/21/17 04:00 98 Non-Rebreather 11.00 02/21/17 04:00 89 02/21/17 04:00 99.3 89 26 164/71 100 02/21/17 02:00 90 02/21/17 00:00 98 Non-Rebreather 11.00 02/21/17 00:00 83 02/21/17 00:00 98.7 83 19 136/63 98 02/20/17 22:00 89 02/20/17 21:00 98 Non-Rebreather 11.00 02/20/17 20:00 99.2 100 23 191/81 95 02/20/17 20:00 96 02/20/17 20:00 90 Venturi Mask 6.00 02/20/17 18:00 96 02/20/17 17:00 100 Partial Rebreather 12.00 02/20/17 16:09 100 Non-Rebreather 15.00 02/20/17 16:00 94 02/20/17 16:00 99.0 94 21 110/57 100 02/20/17 16:00 100 Non-Rebreather 15.00 02/20/17 14:00 94 I/O 02/20/17 02/20/17 02/20/17 02/21/17 02/21/17 02/21/17 06:59 14:59 22:59 06:59 14:59 22:59 Intake Total 0 ml 0 ml 0 ml Output Total 200 ml 255 ml 4105 ml 100 ml Balance -200 ml -255 ml -4105 ml -100 ml Intake Oral 0 ml IV Total 0 ml 0 ml 0 ml Output Urine Total 200 ml 250 ml 100 ml 50 ml Drainage Total 0 ml 5 ml 5 ml 50 ml Hemodialysis 4000 ml # Bowel Movements 0 0 3 Physical Exam GENERAL: NAD, alert and awake SKIN: Warm and dry. HEAD: Atraumatic. Normocephalic. EYES: Pupils equal and round. No scleral icterus. No injection or drainage. ENT: No nasal bleeding or discharge. Mucous membranes pink and moist. NECK: Trachea midline. No JVD. CARDIOVASCULAR: Regular rate and rhythm. RESPIRATORY: No accessory muscle use. Decreased breath sounds bilaterally, mild crackles GASTROINTESTINAL: Abdomen soft, non-tender, nondistended. Hepatic and splenic margins not palpable. MUSCULOSKELETAL: Extremities without clubbing, cyanosis, or edema. No obvious deformities. NEUROLOGICAL: Awake and alert. No obvious cranial nerve deficits. Motor grossly within normal limits. Five out of 5 muscle strength in the arms and legs. Normal speech. PSYCHIATRIC: Appropriate mood and affect; insight and judgment normal. Laboratory Laboratory Tests Test 02/21/17 03:56 White Blood Count 13.2 TH/MM3 Red Blood Count 3.95 MIL/MM3 Hemoglobin 8.1 GM/DL Hematocrit 27.2 % Mean Corpuscular Volume 68.9 FL Mean Corpuscular Hemoglobin 20.5 PG Mean Corpuscular Hemoglobin 29.7 % Concent Red Cell Distribution Width 16.9 % Platelet Count 513 TH/MM3 Mean Platelet Volume 8.1 FL Sodium Level 138 MEQ/L Potassium Level 4.8 MEQ/L Chloride Level 97 MEQ/L Carbon Dioxide Level 27.5 MEQ/L Anion Gap 14 MEQ/L Blood Urea Nitrogen 35 MG/DL Creatinine 5.28 MG/DL Estimat Glomerular Filtration 10 ML/MIN Rate Random Glucose 98 MG/DL Calcium Level 9.2 MG/DL Assessment and Plan Problem List: (1) Cholecystitis (2) Anemia (3) Acute kidney failure (4) Stage 4 chronic kidney disease (5) Diabetes mellitus (6) CHF (congestive heart failure) (7) Cardiomyopathy Assessment and Plan 1) SOB Possible due to decompensated CHF Weights have gone up as creatinine has gone up as well as decreased urine output HD/fluid management per nephrology When not getting full HD, appears to get fluid overloaded and increased oxygen demand Does better after HD both clinically and oxygen demand cazares after large amounts of fluid removed 2) Cardiomyopathy of unknown cause, never evaluated Not the best candidate for revascularization with comorbidities and cholecystomy tube Con't with medical management for now 3) Agree with critical care, may need thoracentesis Problem Qualifiers (1) Anemia: Chin Hernandez DO Feb 21, 2017 13:31
[2017-02-21] MEDS: ONDANSETRON HCL 4 MG/2 ML VIAL IV PRN (18:11)
[2017-02-21] MEDS: EPOETIN ALFA 20,000 UNITS/ML VIAL IV PRN (20:07)
[2017-02-21] MEDS: GENTAMICIN SULFATE (DIALYSIS USE ONLY) 20 MG/2 ML VIAL IV PRN (20:07)
[2017-02-22] VITALS (10 sets, daily range): BP systolic 136–169; BP diastolic 66–89; PULSE 66–81; RESP 17–20; TEMP 97–99.2; O2SAT 96–99
[2017-02-22] MEDS: MIDODRINE 5 MG TAB PO SCH ×3 (06:12→18:39)
[2017-02-22] MEDS: INSULIN ASPART SUPPLEMENTAL SCALE SQ SCH ×4 (06:12→21:51)
[2017-02-22 07:20] LABS: HEMATOCRIT 26.8 % (35.0-46.0); MEAN CELL VOLUME 66.8 FL (80.0-100.0); MEAN CORPUSCULAR HGB CONC 31.5 % (32.0-36.0); PLATELET COUNT 471 TH/MM3 (150-450); RED BLOOD COUNT 4.02 MIL/MM3 (4.00-5.30); RED CELL DISTRIBUTION WIDTH 16.7 % (11.6-17.2); REVIEW FLAG FINAL; WHITE BLOOD COUNT 9.9 TH/MM3 (4.0-11.0)
[2017-02-22 07:30] LABS: BICARBONATE 30.1 MEQ/L (21.0-32.0); POTASSIUM 4.3 MEQ/L (3.5-5.1)
[2017-02-22] MEDS: RESP: ALBUTEROL 2.5 MG/IPRATROPIUM 0.5 MG NEB (SCH) NEB ×4 (07:50→21:05)
[2017-02-22] MEDS: HEPARIN SODIUM - SQ 10,000 UNITS/ML VIAL SQ SCH ×2 (08:31→20:31)
[2017-02-22] MEDS: FUROSEMIDE 40 MG/4 ML VIAL IV PUSH SCH ×2 (08:31→20:31)
[2017-02-22] MEDS: DOCUSATE SODIUM 50 MG/SENNA 8.6 MG TAB PO SCH ×2 (08:31→20:31)
[2017-02-22] MEDS: ASPIRIN 81 MG CHEW TAB CHEW SCH (08:32)
[2017-02-22] MEDS: CARVEDILOL 3.125 MG TAB PO SCH ×2 (08:32→20:31)
[2017-02-22] MEDS: SODIUM CHLORIDE 0.9% FLUSH 10 ML FLUSH IV FLUSH SCH ×2 (08:32→20:31)
[2017-02-22] MEDS: INSULIN DETEMIR 100 UNITS/ML VIAL SQ SCH (08:46)
--- NOTE | 2017-02-22 09:09 | HHI.NPPN ---
Subjective History of Present Illness 66-year-old female with a past medical history of hypertension, diabetes mellitus, chronic kidney disease, anemia and chronic back pain, who was admitted because of abdominal pain, nausea and vomiting. I was called to see the patient because of elevated BUN and creatinine. The patient has known history of chronic kidney disease and she had acute kidney injury. Additional Remarks Dialyzed yesterday with removal of 3 liters. On 3 liters of oxygen by [place]. Review of Systems General Constitutional: Fatigue Objective Data Data 02/21/17 02/22/17 19:00 07:00 Intake Total 240 ml 360 ml Output Total 260 ml 3450 ml Balance -20 ml -3090 ml Intake Oral 240 ml 340 ml IV Total 0 ml 20 ml Output Urine Total 200 ml 350 ml Drainage Total 60 ml 100 ml Hemodialysis 3000 ml # Bowel Movements 0 2 Vital Signs Date Time Temp Pulse Resp B/P Pulse Ox O2 Delivery O2 Flow Rate FiO2 02/22/17 07:54 97 Nasal Cannula 3.00 02/22/17 04:00 99.2 81 20 136/66 98 02/22/17 03:48 Nasal Cannula 3.00 Humidified 02/22/17 00:00 98.7 81 17 142/72 96 02/21/17 23:30 Nasal Cannula 3.00 02/21/17 23:27 79 02/21/17 22:00 80 02/21/17 22:00 100 Nasal Cannula 4.00 02/21/17 20:00 100 Nasal Cannula 5.00 02/21/17 20:00 97.7 75 21 123/69 100 02/21/17 20:00 75 02/21/17 19:58 100 Nasal Cannula 5.00 02/21/17 18:00 79 02/21/17 16:00 98 Nasal Cannula 5.00 02/21/17 16:00 99.3 78 22 140/63 100 02/21/17 16:00 78 02/21/17 14:00 78 02/21/17 12:34 100 Nasal Cannula 5.00 02/21/17 12:00 98.7 78 20 157/68 100 02/21/17 12:00 78 02/21/17 12:00 98 Nasal Cannula 5.00 02/21/17 11:20 98.7 79 19 147/66 98 02/21/17 10:00 92 -: 02/22/17 0610 02/22/17 0610 Physical Exam Eyes Eye Exam: Pupils Equal Throat Throat Exam: Oral Mucosa [place] & Moist Neck Neck Exam: Neck Supple Pulmonary Resp Exam: Breath Sounds Equal, No Distress, Rhonchi, Decreased Bases, Diminished Breath Sounds Cardiology CV Exam: Regular, Normal Sinus Rhythm Gastrointestinal/Abdomen GI Exam: Soft, Bowel Sounds Present, Distended Extremeties Extremities Exam: Trace Edema Neurologic Neuro Exam: Alert, Awake, Oriented Psychiatric Psych Exam: Appropriate Responses Assessment/Plan Assessment Summary: GRADY/Acute Renal Failure, Hypotension, CKD Stage IV Problem List: (1) Acute kidney failure Plan: 7 liters removed in 2 days of dialysis : Thursday and Thursday. Continue dialysis support as needed. Avoid nephrotoxic agents. Increased Lasix. to 80 mg IV Q12. Watch for signs of renal recovery. It is unclear if she is going to require dialysis support permanently. (2) Diabetes mellitus (3) CHF (congestive heart failure) (4) Cholecystitis (5) Gallstones (6) Elevated LFTs (7) Anemia (8) Stage 4 chronic kidney disease Problem Qualifiers (1) Anemia: Cristian White MD Feb 22, 2017 09:09
--- NOTE | 2017-02-22 11:30 | PD.CARD.PN ---
Subjective Subjective Remarks Overall looks better Breathing better, less oxygen demand Objective Medications Current Medications Medications (Trade) Dose Ordered Sig/Lo Route Start Time Stop Time Status Last Admin (D50w (Vial) Inj) 50 ml UNSCH PRN IV 02/05/17 19:30 Glucagon 1 mg 1 mg UNSCH PRN OTHER 02/05/17 19:30 (NS 1000 ml Inj) 1,000 ml @ 50 mls/hr Q20H IV 02/05/17 19:16 Hold 02/06/17 04:19 (NS Flush) 2 ml UNSCH PRN IV FLUSH 02/05/17 19:30 (NS Flush) 2 ml BID IV FLUSH 02/05/17 21:00 02/22/17 08:32 (Zofran Inj) 4 mg Q6H PRN IVP 02/05/17 19:30 02/12/17 03:32 (Tylenol) 650 mg Q6H PRN PO 02/05/17 19:30 (Roxicodone) 5 mg Q4H PRN PO 02/05/17 19:30 02/12/17 22:10 (Terese-Colace) 1 tab BID PO 02/05/17 21:00 02/22/17 08:31 (Milk Of Magnesia Liq) 30 ml Q12H PRN PO 02/05/17 19:30 02/06/17 07:59 (Senokot) 17.2 mg Q12H PRN PO 02/05/17 19:30 (Dulcolax Supp) 10 mg DAILY PRN RECTAL 02/05/17 19:30 (Lactulose Liq) 30 ml DAILY PRN PO 02/05/17 19:30 02/06/17 17:46 (Norvasc) 10 mg DAILY PO 02/06/17 09:00 Hold 02/06/17 07:57 (Coreg) 3.125 mg Q12HR PO 02/05/17 21:00 02/22/17 08:32 (Zanaflex) 4 mg TID PO 02/06/17 09:00 02/22/17 08:32 (Levemir Inj) 10 units DAILY SQ 02/06/17 09:00 02/22/17 08:46 (Morphine Inj) 1 mg Q4HR PRN IV 02/06/17 12:00 02/17/17 17:57 (Proamatine) 10 mg TID@07,12,17 PO 02/08/17 17:00 02/22/17 06:12 Miscellaneous Information Patient in critical care unit? Ass... Q361D .XX 02/08/17 23:00 (NS Flush) UNSCH PRN IVF 02/09/17 15:30 Heparin Sodium (Porcine) UNSCH PRN IV FLUSH 02/09/17 15:30 (NS 1000 ml Inj) 1,000 ml @ 0 mls/hr Q0M PRN IV 02/09/17 15:39 02/20/17 15:13 Heparin Sodium (Porcine) 8000 units 8,000 units UNSCH PRN IVF 02/09/17 15:45 Sodium Chloride 1,000 ml @ 200 mls/hr Q5H PRN IV 02/09/17 15:39 (NS 1000 ml Inj) 1,000 ml @ 0 mls/hr Q0M PRN IV 02/09/17 15:39 (Mannitol Inj) 12.5 gm UNSCH PRN IV 02/09/17 15:45 02/20/17 15:13 (Albumin 25% Inj) 25 gm UNSCH PRN IV 02/09/17 15:45 02/20/17 15:12 (NS Flush) 5 ml UNSCH PRN IV FLUSH 02/09/17 15:45 02/14/17 10:15 (Heparin Inj) UNSCH PRN .XX 02/09/17 15:45 02/20/17 15:12 (Gentamicin (Dialysis) Inj) 20 mg UNSCH PRN IV 02/09/17 15:45 02/21/17 20:07 (Zofran Inj) 4 mg UNSCH PRN IV 02/09/17 15:45 02/21/17 18:11 (Tylenol) 650 mg UNSCH PRN PO 02/09/17 15:45 (Benadryl) 25 mg UNSCH PRN PO 02/09/17 15:45 02/17/17 08:45 (Nitrostat Sl) 0.4 mg UNSCH PRN SL 02/09/17 15:45 (Catapres) 0.1 mg UNSCH PRN PO 02/09/17 15:45 02/21/17 18:36 (Gelfoam 12 Mm/7 Mm Top) 1 foam UNSCH PRN TOP 02/09/17 15:45 (Melatonin) 5 mg HS PRN PO 02/10/17 17:15 02/10/17 22:08 (Epogen Inj) 20,000 units UNSCH PRN IV 02/12/17 10:15 02/21/17 20:07 (Roxicodone) 10 mg Q4H PRN PO 02/13/17 11:15 02/19/17 23:55 (Heparin Inj) 5,000 units Q12HR SQ 02/16/17 21:00 02/22/17 08:31 (Aspirin Chew) 81 mg DAILY CHEW 02/17/17 09:00 02/22/17 08:32 (Lasix Inj) 80 mg BID IV PUSH 02/21/17 21:00 02/22/17 08:31 Vital Signs / I&O Vital Signs Date Time Temp Pulse Resp B/P Pulse Ox O2 Delivery O2 Flow Rate FiO2 02/22/17 08:40 Nasal Cannula 3.00 02/22/17 08:00 97.6 77 18 163/89 99 02/22/17 07:54 97 Nasal Cannula 3.00 02/22/17 04:00 99.2 81 20 136/66 98 02/22/17 03:48 Nasal Cannula 3.00 Humidified 02/22/17 00:00 98.7 81 17 142/72 96 02/21/17 23:30 Nasal Cannula 3.00 02/21/17 23:27 79 02/21/17 22:00 80 02/21/17 22:00 100 Nasal Cannula 4.00 02/21/17 20:00 100 Nasal Cannula 5.00 02/21/17 20:00 97.7 75 21 123/69 100 02/21/17 20:00 75 02/21/17 19:58 100 Nasal Cannula 5.00 02/21/17 18:00 79 02/21/17 16:00 98 Nasal Cannula 5.00 02/21/17 16:00 99.3 78 22 140/63 100 02/21/17 16:00 78 02/21/17 14:00 78 02/21/17 12:34 100 Nasal Cannula 5.00 02/21/17 12:00 98.7 78 20 157/68 100 02/21/17 12:00 78 02/21/17 12:00 98 Nasal Cannula 5.00 I/O 02/21/17 02/21/17 02/21/17 02/22/17 02/22/17 02/22/17 07:00 15:00 23:00 07:00 15:00 23:00 Intake Total 0 ml 240 ml 260 ml 100 ml Output Total 100 ml 260 ml 3100 ml 350 ml Balance -100 ml -20 ml -2840 ml -250 ml Intake Oral 240 ml 240 ml 100 ml IV Total 0 ml 0 ml 20 ml Output Urine Total 50 ml 200 ml 100 ml 250 ml Drainage Total 50 ml 60 ml 0 ml 100 ml Hemodialysis 3000 ml # Bowel Movements 3 0 0 2 Physical Exam GENERAL: NAD, alert and awake SKIN: Warm and dry. HEAD: Atraumatic. Normocephalic. EYES: Pupils equal and round. No scleral icterus. No injection or drainage. ENT: No nasal bleeding or discharge. Mucous membranes pink and moist. NECK: Trachea midline. No JVD. CARDIOVASCULAR: Regular rate and rhythm. RESPIRATORY: No accessory muscle use. Decreased breath sounds bilaterally, mild crackles GASTROINTESTINAL: Abdomen soft, non-tender, nondistended. Hepatic and splenic margins not palpable. MUSCULOSKELETAL: Extremities without clubbing, cyanosis, or edema. No obvious deformities. NEUROLOGICAL: Awake and alert. No obvious cranial nerve deficits. Motor grossly within normal limits. Five out of 5 muscle strength in the arms and legs. Normal speech. PSYCHIATRIC: Appropriate mood and affect; insight and judgment normal. Laboratory Laboratory Tests Test 02/22/17 06:10 White Blood Count 9.9 TH/MM3 Red Blood Count 4.02 MIL/MM3 Hemoglobin 8.4 GM/DL Hematocrit 26.8 % Mean Corpuscular Volume 66.8 FL Mean Corpuscular Hemoglobin 21.0 PG Mean Corpuscular Hemoglobin 31.5 % Concent Red Cell Distribution Width 16.7 % Platelet Count 471 TH/MM3 Mean Platelet Volume 8.1 FL Sodium Level 136 MEQ/L Potassium Level 4.3 MEQ/L Chloride Level 95 MEQ/L Carbon Dioxide Level 30.1 MEQ/L Anion Gap 11 MEQ/L Blood Urea Nitrogen 43 MG/DL Creatinine 4.60 MG/DL Estimat Glomerular Filtration 12 ML/MIN Rate Random Glucose 139 MG/DL Calcium Level 8.4 MG/DL Assessment and Plan Problem List: (1) Cholecystitis (2) Anemia (3) Acute kidney failure (4) Stage 4 chronic kidney disease (5) Diabetes mellitus (6) CHF (congestive heart failure) (7) Cardiomyopathy Assessment and Plan 1) SOB HD/fluid management per nephrology, oxygen demand decreased with fluid off from HD 2) Cardiomyopathy of unknown cause, never evaluated Not the best candidate for revascularization with comorbidities and cholecystomy tube Con't with medical management for now Problem Qualifiers (1) Anemia: Chin Hernandez DO Feb 22, 2017 11:30
--- NOTE | 2017-02-22 11:39 | HHI.PR ---
Subjective Remarks Improving respiratory status. Now out of ICU. Patient's primary complaint today is pain of her throat. Objective Vital Signs Date Time Temp Pulse Resp B/P Pulse Ox O2 Delivery O2 Flow Rate FiO2 02/22/17 08:40 Nasal Cannula 3.00 02/22/17 08:00 97.6 77 18 163/89 99 02/22/17 07:54 97 Nasal Cannula 3.00 02/22/17 04:00 99.2 81 20 136/66 98 02/22/17 03:48 Nasal Cannula 3.00 Humidified 02/22/17 00:00 98.7 81 17 142/72 96 02/21/17 23:30 Nasal Cannula 3.00 02/21/17 23:27 79 02/21/17 22:00 80 02/21/17 22:00 100 Nasal Cannula 4.00 02/21/17 20:00 100 Nasal Cannula 5.00 02/21/17 20:00 97.7 75 21 123/69 100 02/21/17 20:00 75 02/21/17 19:58 100 Nasal Cannula 5.00 02/21/17 18:00 79 02/21/17 16:00 98 Nasal Cannula 5.00 02/21/17 16:00 99.3 78 22 140/63 100 02/21/17 16:00 78 02/21/17 14:00 78 02/21/17 12:34 100 Nasal Cannula 5.00 02/21/17 12:00 98.7 78 20 157/68 100 02/21/17 12:00 78 02/21/17 12:00 98 Nasal Cannula 5.00 I/O 02/21/17 02/21/17 02/21/17 02/22/17 02/22/17 02/22/17 07:00 15:00 23:00 07:00 15:00 23:00 Intake Total 0 ml 240 ml 260 ml 100 ml Output Total 100 ml 260 ml 3100 ml 350 ml Balance -100 ml -20 ml -2840 ml -250 ml Intake Oral 240 ml 240 ml 100 ml IV Total 0 ml 0 ml 20 ml Output Urine Total 50 ml 200 ml 100 ml 250 ml Drainage Total 50 ml 60 ml 0 ml 100 ml Hemodialysis 3000 ml # Bowel Movements 3 0 0 2 Result Diagram: 02/22/1710 02/22/17 0610 Procedures None Objective Remarks GENERAL: NAD, A&Ox3 HEAD: Normocephalic. Oxygen mask on. NECK: Supple, trachea midline. No lymphadenopathy. EYES: No scleral icterus. No injection or drainage. CARDIOVASCULAR: Regular rate and rhythm without murmurs, gallops, or rubs. RESPIRATORY: Breath sounds equal bilaterally. No accessory muscle use. GASTROINTESTINAL: Abdomen soft, non-tender, nondistended. MUSCULOSKELETAL: No cyanosis, or edema. SKIN: Warm and dry. NEURO: No focal neurological deficitis. MOUTH: Oral benjamin at buccal mucosa and tongue A/P Problem List: (1) Cholecystitis ICD Code: K81.9 (2) Anemia ICD Code: D64.9 (3) Acute kidney failure ICD Code: N17.9 (4) Stage 4 chronic kidney disease ICD Code: N18.4 (5) Diabetes mellitus ICD Code: 250.00 (6) Cholecystostomy care ICD Code: Z43.4 (7) Cardiomyopathy ICD Code: I42.9 (8) Complications, dialysis, catheter, mechanical ICD Code: T82.49XA (9) Gallstones ICD Code: K80.20 (10) Elevated LFTs ICD Code: R79.89 (11) DM (diabetes mellitus) ICD Code: E11.9 (12) Renal insufficiency ICD Code: N28.9 (13) CHF (congestive heart failure) ICD Code: I50.9 Assessment and Plan Assessment and plan 66-year-old female admitted secondary to cholecystitis. Complications of acute renal failure, anemia, CHF, pleural effusion. Now status post cholecystectomy with drain. Out of ICU status post respiratory failure. She has BiPAP in ICU. The patient complains a sore throat. Exam shows oral candidiasis. Nystatin swish and swallow started. Follow BMP and CBC. Labs ordered. Acute cholecystitis Status post cholecystostomy tube placement by IR Now off Zosyn Follow urine cultures Monitor for any fevers Follow CBC Continue pain control Continue postop wound care Monitor biliary drain output Acute systolic CHF Pulm Edema pleural effusion: 40 mg IV Lasix daily 2D ECHO, EF of 30-35%. Daily aspirin Low sodium diet Monitor pleural effusions Pulmonology consulted Cardiology following Acute on chronic kidney injury Metabolic acidosis secondary to acute renal failure Nephrology following Vas-Cath present Continue hemodialysis Hypotension Resolved Continue midodrine as needed Follow blood pressures Diabetes mellitus Insulin sliding scale Levemir Diabetic diet Follow blood sugars Chronic pain syndrome Insomnia Melatonin 5 mg by mouth daily at bedtime PRN for insomnia Continue as needed pain control treatments Mild protein calorie Malnutrition Calorie count ongoing Nutrition is consulted anemia of chronic disease Epogen and IV iron. Follow CBC DVT prophylaxis SCDs heparin Discharge Planning May need pleural effusion prior to discharge Daughter Johanny [phone] Problem Qualifiers (1) Anemia: Martinez Cordon MD Feb 22, 2017 11:39
[2017-02-22] MEDS: NYSTATIN SUSP 500,000 U/5 ML CUP SWISH-SWAL SCH ×3 (12:59→20:30)
[2017-02-23] VITALS (8 sets, daily range): BP systolic 111–164; BP diastolic 64–87; PULSE 64–77; RESP 12–20; TEMP 97.5–98.1; O2SAT 96–99
[2017-02-23] MEDS: INSULIN ASPART SUPPLEMENTAL SCALE SQ SCH ×4 (06:08→21:47)
[2017-02-23] MEDS: MIDODRINE 5 MG TAB PO SCH ×3 (06:08→18:05)
[2017-02-23] MEDS: RESP: ALBUTEROL 2.5 MG/IPRATROPIUM 0.5 MG NEB (SCH) NEB ×3 (07:33→15:38)
[2017-02-23 07:57] LABS: HEMATOCRIT 27.9 % (35.0-46.0); MEAN CELL VOLUME 67.2 FL (80.0-100.0); MEAN CORPUSCULAR HEMOGLOBIN 20.8 PG (27.0-34.0); MEAN CORPUSCULAR HGB CONC 30.9 % (32.0-36.0); PLATELET COUNT 484 TH/MM3 (150-450); RED BLOOD COUNT 4.15 MIL/MM3 (4.00-5.30); RED CELL DISTRIBUTION WIDTH 17.1 % (11.6-17.2); REVIEW FLAG FINAL; WHITE BLOOD COUNT 8.1 TH/MM3 (4.0-11.0)
[2017-02-23 08:35] LABS: BICARBONATE 29.7 MEQ/L (21.0-32.0); POTASSIUM 4.3 MEQ/L (3.5-5.1)
[2017-02-23] MEDS: diphenhydrAMINE HCL 25 MG CAP PO PRN (09:01)
[2017-02-23] MEDS: ASPIRIN 81 MG CHEW TAB CHEW SCH (09:02)
[2017-02-23] MEDS: CARVEDILOL 3.125 MG TAB PO SCH ×2 (09:02→20:28)
[2017-02-23] MEDS: DOCUSATE SODIUM 50 MG/SENNA 8.6 MG TAB PO SCH ×2 (09:02→20:28)
[2017-02-23] MEDS: FUROSEMIDE 40 MG/4 ML VIAL IV PUSH SCH ×2 (09:03→20:28)
[2017-02-23] MEDS: HEPARIN SODIUM - SQ 10,000 UNITS/ML VIAL SQ SCH ×2 (09:03→20:29)
[2017-02-23] MEDS: NYSTATIN SUSP 500,000 U/5 ML CUP SWISH-SWAL SCH ×4 (09:04→20:27)
[2017-02-23] MEDS: SODIUM CHLORIDE 0.9% FLUSH 10 ML FLUSH IV FLUSH SCH ×2 (09:04→20:29)
[2017-02-23] MEDS: INSULIN DETEMIR 100 UNITS/ML VIAL SQ SCH (09:15)
--- NOTE | 2017-02-23 13:47 | HHI.PR ---
Subjective Remarks No complaints of respiratory problems. Her sore throat is improving. She does complain of epigastric pain which is peristaltic in nature and is likely related to her abdominal issues including healing from her cholecystitis. She also informs me today that she can't move her lower extremities. She says this is been a problem for several days but she is informing me of this today. Objective Vital Signs Date Time Temp Pulse Resp B/P Pulse Ox O2 Delivery O2 Flow Rate FiO2 02/23/17 08:00 98.0 77 20 151/64 98 02/23/17 07:33 98 Nasal Cannula 1.50 02/23/17 04:00 98.0 76 12 157/70 99 02/23/17 00:00 Nasal Cannula 2.00 02/22/17 23:19 97.7 66 20 161/72 96 02/22/17 20:00 97.0 69 18 169/73 98 02/22/17 20:00 70 02/22/17 20:00 Nasal Cannula 3.00 Humidified 02/22/17 17:26 97 Nasal Cannula 2.00 02/22/17 16:00 98.0 68 18 152/76 98 I/O 02/22/17 02/22/17 02/22/17 02/23/17 02/23/17 02/23/17 06:59 14:59 22:59 06:59 14:59 22:59 Intake Total 100 ml 480 ml 240 ml 240 ml Output Total 350 ml 300 ml 300 ml 460 ml Balance -250 ml 180 ml -60 ml -220 ml Intake Oral 100 ml 480 ml 240 ml 240 ml Output Urine Total 250 ml 300 ml 300 ml 450 ml Drainage Total 100 ml 10 ml # Bowel Movements 2 0 0 0 Result Diagram: 02/23/1725 02/23/17 0625 Procedures None Objective Remarks GENERAL: NAD, A&Ox3 HEAD: Normocephalic. Oxygen mask on. NECK: Supple, trachea midline. No lymphadenopathy. EYES: No scleral icterus. No injection or drainage. CARDIOVASCULAR: Regular rate and rhythm without murmurs, gallops, or rubs. RESPIRATORY: Breath sounds equal bilaterally. No accessory muscle use. GASTROINTESTINAL: Abdomen soft, non-tender, nondistended. MUSCULOSKELETAL: No cyanosis, or edema. SKIN: Warm and dry. NEURO: Bilateral lower extremity sensations are intact but motor functions are not. Flaccidity at upper and lower legs. MOUTH: Improving Oral benjamin at buccal mucosa and tongue A/P Problem List: (1) Cholecystitis ICD Code: K81.9 (2) Anemia ICD Code: D64.9 (3) Acute kidney failure ICD Code: N17.9 (4) Stage 4 chronic kidney disease ICD Code: N18.4 (5) Diabetes mellitus ICD Code: 250.00 (6) Cholecystostomy care ICD Code: Z43.4 (7) Cardiomyopathy ICD Code: I42.9 (8) Complications, dialysis, catheter, mechanical ICD Code: T82.49XA (9) Gallstones ICD Code: K80.20 (10) Elevated LFTs ICD Code: R79.89 (11) DM (diabetes mellitus) ICD Code: E11.9 (12) Renal insufficiency ICD Code: N28.9 (13) CHF (congestive heart failure) ICD Code: I50.9 Assessment and Plan Assessment and plan 66-year-old female admitted secondary to cholecystitis. Complications of acute renal failure, anemia, CHF, pleural effusion. Now status post cholecystectomy with drain. Improving oral candidiasis. New complaint of bilateral lower extremity flaccidity with sensation intact. Neurology consult. MRI lumbar spine. Follow BMP and CBC. Labs ordered. Bilateral Lower Extremity Flaccidity Bilateral nature suggests spinal or neurodegenerative etiology MRI of lumbar spine Neurology consult Follow clinically Monitor for any progression Acute cholecystitis Status post cholecystostomy tube placement by IR Now off Zosyn Follow urine cultures Monitor for any fevers Follow CBC Continue pain control Continue postop wound care Monitor biliary drain output Acute systolic CHF Pulm Edema pleural effusion: 40 mg IV Lasix daily 2D ECHO, EF of 30-35%. Daily aspirin Low sodium diet Monitor pleural effusions Pulmonology consulted Cardiology following Acute on chronic kidney injury Metabolic acidosis secondary to acute renal failure Nephrology following Vas-Cath present Continue hemodialysis Hypotension Resolved Continue midodrine as needed Follow blood pressures Diabetes mellitus Insulin sliding scale Levemir Diabetic diet Follow blood sugars Chronic pain syndrome Insomnia Melatonin 5 mg by mouth daily at bedtime PRN for insomnia Continue as needed pain control treatments Mild protein calorie Malnutrition Calorie count ongoing Nutrition is consulted anemia of chronic disease Epogen and IV iron. Follow CBC DVT prophylaxis SCDs heparin Discharge Planning May need pleural effusion prior to discharge Daughter Johanny [phone] Problem Qualifiers (1) Anemia: Martinez Cordon MD Feb 23, 2017 13:47
--- NOTE | 2017-02-23 15:33 | MB ---
cc: LAKEISHA MOELLER M.D. DATE OF CONSULTATION: 02/23/2017 REASON FOR CONSULTATION Lower extremity weakness. HISTORY OF PRESENT ILLNESS She is accompanied by her son. I also brought her nurse in. The patient has been in the hospital for over two weeks. It is difficult to gather a more detailed history because she is not a very good historian and she has had a prolonged hospitalization as discussed. She came in on February 05 with abdominal symptoms and was treated for cholecystitis. She was treated surgically and had developed renal failure. She has been on dialysis. She has had lower extremity weakness. It is not quite clear as to how long she has had the weakness. She denies history of stroke, seizures, TIA. She has had bilateral eye surgery and left droopy eye since she had surgery three or four years ago. NEUROLOGICAL EXAMINATION The neurologic exam shows the patient to be awake, alert, oriented. She is not a very good historian and at times her speech is low and a bit difficult to comprehend, but her son also reaffirmed the history. The left eye is moderately droopy but she can gaze in all directions and she was able to count fingers bilaterally without any overt visual field defect. There is a smaller pupil on the left and I believe this to be from surgery. 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 She has reflexes being diminished but present at the elbows. There is no obvious asymmetry in her upper extremity exam. She is not aphasic. She is edentulous. She is unable to move the lower extremities. She is flaccid when I flex her knees. She has sensory loss reaching approximately the T8 level bilaterally but there is some perception to stimulation in the lower extremities, though clearly not normal and she points to a level as discussed. Muscle stretch reflexes essentially absent in the lower extremities, plantar responses none. LABORATORY Recent labs seen: BUN 63, creatinine 6.29, sodium 137, potassium 4.3, calcium 8.7. WBC 8.1, hemoglobin 8.6, platelets 484. ASSESSMENT Paraparesis. Historically this has happened during this admission but the exact date is unclear. She seems to have a sensory level at T8. Suspect spinal cord syndrome. She is not having pain. PLAN/RECOMMENDATIONS I will see if we can run an MRI of her spine, especially thoracolumbar spine. I will follow the neurological history. Thank you asking us to assist in her care. MD SHIRLEY Diggs/EMANUEL /3:09 PM /3:22 PM
--- NOTE | 2017-02-23 16:17 | HHI.NPPN ---
Subjective History of Present Illness 66-year-old female with a past medical history of hypertension, diabetes mellitus, chronic kidney disease, anemia and chronic back pain, who was admitted because of abdominal pain, nausea and vomiting. I was called to see the patient because of elevated BUN and creatinine. The patient has known history of chronic kidney disease and she had acute kidney injury. Additional Remarks Patient is alert, breathing is better, now with nasal cannula, abd. pain is better. Review of Systems General Constitutional: Fatigue Objective Data Data 02/22/17 02/23/17 19:00 07:00 Intake Total 480 ml 480 ml Output Total 300 ml 760 ml Balance 180 ml -280 ml Intake Oral 480 ml 480 ml Output Urine Total 300 ml 750 ml Drainage Total 10 ml # Bowel Movements 0 0 Vital Signs Date Time Temp Pulse Resp B/P Pulse Ox O2 Delivery O2 Flow Rate FiO2 02/23/17 16:00 97.9 74 18 164/71 98 02/23/17 15:40 97 Nasal Cannula 1.50 02/23/17 12:00 98.1 70 18 141/65 98 02/23/17 08:00 74 02/23/17 08:00 98.0 77 20 151/64 98 02/23/17 08:00 Nasal Cannula 2.00 02/23/17 07:33 98 Nasal Cannula 1.50 02/23/17 04:00 98.0 76 12 157/70 99 02/23/17 00:00 Nasal Cannula 2.00 02/22/17 23:19 97.7 66 20 161/72 96 02/22/17 20:00 97.0 69 18 169/73 98 02/22/17 20:00 70 02/22/17 20:00 Nasal Cannula 3.00 Humidified 02/22/17 17:26 97 Nasal Cannula 2.00 -: 02/23/17 0625 02/23/17 0625 Physical Exam General Appearance Remarks Mild resp. distress. Eyes Eye Exam: Pupils Equal Throat Throat Exam: Oral Mucosa [place] & Moist Neck Neck Exam: Neck Supple Pulmonary Resp Exam: Breath Sounds Equal, No Distress, Rhonchi, Decreased Bases, Diminished Breath Sounds Cardiology CV Exam: Regular, Normal Sinus Rhythm Gastrointestinal/Abdomen GI Exam: Soft, Bowel Sounds Present, Distended Extremeties Extremities Exam: Trace Edema Neurologic Neuro Exam: Alert, Awake, Oriented Psychiatric Psych Exam: Appropriate Responses Assessment/Plan Assessment Summary: RGADY/Acute Renal Failure, Hypotension, CKD Stage IV Problem List: (1) Acute kidney failure Plan: Urine out put is better with Lasix. HD done Thursday and Thu. Continue dialysis support as needed. Avoid nephrotoxic agents. On Lasix. to 80 mg IV Q12. Watch for signs of renal recovery. HD will be in AM again. (2) Diabetes mellitus (3) CHF (congestive heart failure) (4) Cholecystitis (5) Gallstones (6) Elevated LFTs (7) Anemia (8) Stage 4 chronic kidney disease Problem Qualifiers (1) Anemia: Svitlana Cook MD Feb 23, 2017 16:17
--- NOTE | 2017-02-23 19:28 | PD.CARD.PN ---
Subjective Subjective Remarks No chest pain/SOB Decreased oxygen demand Objective Medications Current Medications Medications (Trade) Dose Ordered Sig/Lo Route Start Time Stop Time Status Last Admin (D50w (Vial) Inj) 50 ml UNSCH PRN IV 02/05/17 19:30 Glucagon 1 mg 1 mg UNSCH PRN OTHER 02/05/17 19:30 (NS 1000 ml Inj) 1,000 ml @ 50 mls/hr Q20H IV 02/05/17 19:16 Hold 02/06/17 04:19 (NS Flush) 2 ml UNSCH PRN IV FLUSH 02/05/17 19:30 (NS Flush) 2 ml BID IV FLUSH 02/05/17 21:00 02/23/17 09:04 (Zofran Inj) 4 mg Q6H PRN IVP 02/05/17 19:30 02/12/17 03:32 (Tylenol) 650 mg Q6H PRN PO 02/05/17 19:30 (Roxicodone) 5 mg Q4H PRN PO 02/05/17 19:30 02/12/17 22:10 (Terese-Colace) 1 tab BID PO 02/05/17 21:00 02/23/17 09:02 (Milk Of Magnesia Liq) 30 ml Q12H PRN PO 02/05/17 19:30 02/06/17 07:59 (Senokot) 17.2 mg Q12H PRN PO 02/05/17 19:30 (Dulcolax Supp) 10 mg DAILY PRN RECTAL 02/05/17 19:30 (Lactulose Liq) 30 ml DAILY PRN PO 02/05/17 19:30 02/06/17 17:46 (Norvasc) 10 mg DAILY PO 02/06/17 09:00 Hold 02/06/17 07:57 (Coreg) 3.125 mg Q12HR PO 02/05/17 21:00 02/23/17 09:02 (Zanaflex) 4 mg TID PO 02/06/17 09:00 02/23/17 18:05 (Levemir Inj) 10 units DAILY SQ 02/06/17 09:00 02/23/17 09:15 (Morphine Inj) 1 mg Q4HR PRN IV 02/06/17 12:00 02/17/17 17:57 (Proamatine) 10 mg TID@,,17 PO 02/08/17 17:00 02/23/17 18:05 Miscellaneous Information Patient in critical care unit? Ass... Q361D .XX 02/08/17 23:00 (NS Flush) UNSCH PRN IVF 02/09/17 15:30 Heparin Sodium (Porcine) UNSCH PRN IV FLUSH 02/09/17 15:30 (NS 1000 ml Inj) 1,000 ml @ 0 mls/hr Q0M PRN IV 02/09/17 15:39 02/20/17 15:13 Heparin Sodium (Porcine) 8000 units 8,000 units UNSCH PRN IVF 02/09/17 15:45 Sodium Chloride 1,000 ml @ 200 mls/hr Q5H PRN IV 02/09/17 15:39 (NS 1000 ml Inj) 1,000 ml @ 0 mls/hr Q0M PRN IV 02/09/17 15:39 (Mannitol Inj) 12.5 gm UNSCH PRN IV 02/09/17 15:45 02/20/17 15:13 (Albumin 25% Inj) 25 gm UNSCH PRN IV 02/09/17 15:45 02/20/17 15:12 (NS Flush) 5 ml UNSCH PRN IV FLUSH 02/09/17 15:45 02/14/17 10:15 (Heparin Inj) UNSCH PRN .XX 02/09/17 15:45 02/20/17 15:12 (Gentamicin (Dialysis) Inj) 20 mg UNSCH PRN IV 02/09/17 15:45 02/21/17 20:07 (Zofran Inj) 4 mg UNSCH PRN IV 02/09/17 15:45 02/21/17 18:11 (Tylenol) 650 mg UNSCH PRN PO 02/09/17 15:45 (Benadryl) 25 mg UNSCH PRN PO 02/09/17 15:45 02/23/17 09:01 (Nitrostat Sl) 0.4 mg UNSCH PRN SL 02/09/17 15:45 (Catapres) 0.1 mg UNSCH PRN PO 02/09/17 15:45 02/21/17 18:36 (Gelfoam 12 Mm/7 Mm Top) 1 foam UNSCH PRN TOP 02/09/17 15:45 (Melatonin) 5 mg HS PRN PO 02/10/17 17:15 02/10/17 22:08 (Epogen Inj) 20,000 units UNSCH PRN IV 02/12/17 10:15 02/21/17 20:07 (Roxicodone) 10 mg Q4H PRN PO 02/13/17 11:15 02/23/17 09:02 (Heparin Inj) 5,000 units Q12HR SQ 02/16/17 21:00 02/23/17 09:03 (Aspirin Chew) 81 mg DAILY CHEW 02/17/17 09:00 02/23/17 09:02 (Lasix Inj) 80 mg BID IV PUSH 02/21/17 21:00 02/23/17 09:03 (Mycostatin Liq) 5 ml QID SWISH-SWAL 02/22/17 13:00 02/23/17 18:04 Vital Signs / I&O Vital Signs Date Time Temp Pulse Resp B/P Pulse Ox O2 Delivery O2 Flow Rate FiO2 02/23/17 16:00 97.9 74 18 164/71 98 02/23/17 15:40 97 Nasal Cannula 1.50 02/23/17 12:00 98.1 70 18 141/65 98 02/23/17 08:00 74 02/23/17 08:00 98.0 77 20 151/64 98 02/23/17 08:00 Nasal Cannula 2.00 02/23/17 07:33 98 Nasal Cannula 1.50 02/23/17 04:00 98.0 76 12 157/70 99 02/23/17 00:00 Nasal Cannula 2.00 02/22/17 23:19 97.7 66 20 161/72 96 02/22/17 20:00 97.0 69 18 169/73 98 02/22/17 20:00 70 02/22/17 20:00 Nasal Cannula 3.00 Humidified I/O 02/22/17 02/22/17 02/22/17 02/23/17 02/23/17 02/23/17 07:00 15:00 23:00 07:00 15:00 23:00 Intake Total 100 ml 480 ml 240 ml 240 ml 240 ml Output Total 350 ml 300 ml 300 ml 460 ml 450 ml Balance -250 ml 180 ml -60 ml -220 ml -210 ml Intake Oral 100 ml 480 ml 240 ml 240 ml 240 ml Output Urine Total 250 ml 300 ml 300 ml 450 ml 450 ml Drainage Total 100 ml 10 ml # Bowel Movements 2 0 0 0 0 Physical Exam GENERAL: NAD, alert and awake SKIN: Warm and dry. HEAD: Atraumatic. Normocephalic. EYES: Pupils equal and round. No scleral icterus. No injection or drainage. ENT: No nasal bleeding or discharge. Mucous membranes pink and moist. NECK: Trachea midline. No JVD. CARDIOVASCULAR: Regular rate and rhythm. RESPIRATORY: No accessory muscle use. Decreased breath sounds bilaterally, mild crackles GASTROINTESTINAL: Abdomen soft, non-tender, nondistended. Hepatic and splenic margins not palpable. MUSCULOSKELETAL: Extremities without clubbing, cyanosis, or edema. No obvious deformities. NEUROLOGICAL: Awake and alert. No obvious cranial nerve deficits. States she can not move her legs PSYCHIATRIC: Appropriate mood and affect; insight and judgment normal. Laboratory Laboratory Tests Test 02/23/17 06:25 White Blood Count 8.1 TH/MM3 Red Blood Count 4.15 MIL/MM3 Hemoglobin 8.6 GM/DL Hematocrit 27.9 % Mean Corpuscular Volume 67.2 FL Mean Corpuscular Hemoglobin 20.8 PG Mean Corpuscular Hemoglobin 30.9 % Concent Red Cell Distribution Width 17.1 % Platelet Count 484 TH/MM3 Mean Platelet Volume 8.2 FL Sodium Level 137 MEQ/L Potassium Level 4.3 MEQ/L Chloride Level 94 MEQ/L Carbon Dioxide Level 29.7 MEQ/L Anion Gap 13 MEQ/L Blood Urea Nitrogen 63 MG/DL Creatinine 6.29 MG/DL Estimat Glomerular Filtration 8 ML/MIN Rate Random Glucose 116 MG/DL Calcium Level 8.7 MG/DL Assessment and Plan Problem List: (1) Cholecystitis (2) Anemia (3) Acute kidney failure (4) Stage 4 chronic kidney disease (5) Diabetes mellitus (6) CHF (congestive heart failure) (7) Cardiomyopathy Assessment and Plan 1) SOB HD/fluid management per nephrology, oxygen demand decreased with fluid off from HD Down to 1.5L O2 2) Cardiomyopathy of unknown cause, never evaluated Not the best candidate for revascularization with comorbidities and cholecystomy tube Con't with medical management for now 3) Neuro evaluation Problem Qualifiers (1) Anemia: Chin Hernandez DO Feb 23, 2017 19:28
[2017-02-24] VITALS (7 sets, daily range): BP systolic 135–186; BP diastolic 63–79; PULSE 75–91; RESP 17–18; TEMP 98.3–99.8; O2SAT 96–99
[2017-02-24 06:47] LABS: AUTOMATED NEUTROPHIL # 4.3 TH/MM3 (1.8-7.7); BASOPHIL # 0.1 TH/MM3 (0-0.2); BASOPHIL % 1.1 % (0.0-2.0); EOSINOPHIL # 0.6 TH/MM3 (0-0.4); EOSINOPHIL % 8.5 % (0.0-4.0); HEMATOCRIT 29.2 % (35.0-46.0); HEMO FLAGS DIFF FINAL; LYMPH % 21.5 % (9.0-44.0); LYMPHOCYTE # 1.6 TH/MM3 (1.0-4.8); MEAN CELL VOLUME 66.9 FL (80.0-100.0); MEAN CORPUSCULAR HEMOGLOBIN 20.9 PG (27.0-34.0); MEAN CORPUSCULAR HGB CONC 31.2 % (32.0-36.0); MONO % 10.2 % (0.0-8.0); NEUT % 58.7 % (16.0-70.0); PLATELET COUNT 477 TH/MM3 (150-450); RED BLOOD COUNT 4.36 MIL/MM3 (4.00-5.30); RED CELL DISTRIBUTION WIDTH 17.2 % (11.6-17.2); WHITE BLOOD COUNT 7.3 TH/MM3 (4.0-11.0)
[2017-02-24] MEDS: MIDODRINE 5 MG TAB PO SCH ×3 (06:50→18:15)
[2017-02-24] MEDS: INSULIN ASPART SUPPLEMENTAL SCALE SQ SCH ×4 (06:50→20:57)
[2017-02-24 07:24] LABS: ALT (GPT) 37 U/L (10-53); ANION GAP 11 MEQ/L (5-15); AST (GOT) 45 U/L (15-37); BICARBONATE 29.8 MEQ/L (21.0-32.0); BLOOD UREA NITROGEN 77 MG/DL (7-18); CHLORIDE 94 MEQ/L (98-107); GLOMERULAR FILTRATION RATE 7 ML/MIN (>89); POTASSIUM 4.3 MEQ/L (3.5-5.1); SODIUM (NA) 135 MEQ/L (136-145)
[2017-02-24 07:33] LABS: ALKALINE PHOSPHATASE 109 U/L (45-117); TOTAL BILIRUBIN ADULT 0.4 MG/DL (0.2-1.0)
[2017-02-24 08:02] LABS: CREATINE KINASE 74 U/L (26-192)
[2017-02-24] MEDS: NYSTATIN SUSP 500,000 U/5 ML CUP SWISH-SWAL SCH ×4 (08:20→20:56)
[2017-02-24] MEDS: DOCUSATE SODIUM 50 MG/SENNA 8.6 MG TAB PO SCH ×2 (08:20→20:57)
[2017-02-24] MEDS: FUROSEMIDE 40 MG/4 ML VIAL IV PUSH SCH ×2 (08:20→20:57)
[2017-02-24] MEDS: CARVEDILOL 3.125 MG TAB PO SCH ×2 (08:20→20:57)
[2017-02-24] MEDS: ASPIRIN 81 MG CHEW TAB CHEW SCH (08:20)
[2017-02-24] MEDS: SODIUM CHLORIDE 0.9% FLUSH 10 ML FLUSH IV FLUSH SCH ×2 (08:21→20:58)
[2017-02-24] MEDS: HEPARIN SODIUM - SQ 10,000 UNITS/ML VIAL SQ SCH ×2 (08:21→20:57)
[2017-02-24] MEDS: INSULIN DETEMIR 100 UNITS/ML VIAL SQ SCH (08:26)
[2017-02-24] MEDS ORDERED: LORazepam 2 MG/ML VIAL IV PUSH PRN (11:15)
[2017-02-24] MEDS: HEPARIN SODIUM - IV 10,000 UNITS/10 ML VIAL PRN (12:26)
[2017-02-24] MEDS: GENTAMICIN SULFATE (DIALYSIS USE ONLY) 20 MG/2 ML VIAL IV PRN (12:27)
[2017-02-24] MEDS: ALBUMIN HUMAN 25% 25 GM/100 ML BAGP IV PRN (12:27)
[2017-02-24] MEDS: SODIUM CHLOR 0.9% 1000 ML INJ 1,000 ML IV PRN (12:27)
[2017-02-24] MEDS: EPOETIN ALFA 20,000 UNITS/ML VIAL IV PRN (12:28)
--- NOTE | 2017-02-24 13:12 | PD.CARD.PN ---
Subjective Subjective Remarks No events overnight Seen on HD, only planning on taking off 1L Objective Medications Current Medications Medications (Trade) Dose Ordered Sig/Lo Route Start Time Stop Time Status Last Admin (D50w (Vial) Inj) 50 ml UNSCH PRN IV 02/05/17 19:30 Glucagon 1 mg 1 mg UNSCH PRN OTHER 02/05/17 19:30 (NS 1000 ml Inj) 1,000 ml @ 50 mls/hr Q20H IV 02/05/17 19:16 Hold 02/06/17 04:19 (NS Flush) 2 ml UNSCH PRN IV FLUSH 02/05/17 19:30 (NS Flush) 2 ml BID IV FLUSH 02/05/17 21:00 02/24/17 08:21 (Zofran Inj) 4 mg Q6H PRN IVP 02/05/17 19:30 02/12/17 03:32 (Tylenol) 650 mg Q6H PRN PO 02/05/17 19:30 (Roxicodone) 5 mg Q4H PRN PO 02/05/17 19:30 02/12/17 22:10 (Terese-Colace) 1 tab BID PO 02/05/17 21:00 02/24/17 08:20 (Milk Of Magnesia Liq) 30 ml Q12H PRN PO 02/05/17 19:30 02/06/17 07:59 (Senokot) 17.2 mg Q12H PRN PO 02/05/17 19:30 (Dulcolax Supp) 10 mg DAILY PRN RECTAL 02/05/17 19:30 (Lactulose Liq) 30 ml DAILY PRN PO 02/05/17 19:30 02/06/17 17:46 (Norvasc) 10 mg DAILY PO 02/06/17 09:00 Hold 02/06/17 07:57 (Coreg) 3.125 mg Q12HR PO 02/05/17 21:00 02/24/17 08:20 (Zanaflex) 4 mg TID PO 02/06/17 09:00 02/24/17 08:20 (Levemir Inj) 10 units DAILY SQ 02/06/17 09:00 02/24/17 08:26 (Morphine Inj) 1 mg Q4HR PRN IV 02/06/17 12:00 02/17/17 17:57 (Proamatine) 10 mg TID@,, PO 02/08/17 17:00 02/24/17 06:50 Miscellaneous Information Patient in critical care unit? Ass... Q361D .XX 02/08/17 23:00 (NS Flush) UNSCH PRN IVF 02/09/17 15:30 Heparin Sodium (Porcine) UNSCH PRN IV FLUSH 02/09/17 15:30 (NS 1000 ml Inj) 1,000 ml @ 0 mls/hr Q0M PRN IV 02/09/17 15:39 02/24/17 12:27 Heparin Sodium (Porcine) 8000 units 8,000 units UNSCH PRN IVF 02/09/17 15:45 Sodium Chloride 1,000 ml @ 200 mls/hr Q5H PRN IV 02/09/17 15:39 (NS 1000 ml Inj) 1,000 ml @ 0 mls/hr Q0M PRN IV 02/09/17 15:39 (Mannitol Inj) 12.5 gm UNSCH PRN IV 02/09/17 15:45 02/20/17 15:13 (Albumin 25% Inj) 25 gm UNSCH PRN IV 02/09/17 15:45 02/24/17 12:27 (NS Flush) 5 ml UNSCH PRN IV FLUSH 02/09/17 15:45 02/14/17 10:15 (Heparin Inj) UNSCH PRN .XX 02/09/17 15:45 02/24/17 12:26 (Gentamicin (Dialysis) Inj) 20 mg UNSCH PRN IV 02/09/17 15:45 02/24/17 12:27 (Zofran Inj) 4 mg UNSCH PRN IV 02/09/17 15:45 02/21/17 18:11 (Tylenol) 650 mg UNSCH PRN PO 02/09/17 15:45 (Benadryl) 25 mg UNSCH PRN PO 02/09/17 15:45 02/23/17 09:01 (Nitrostat Sl) 0.4 mg UNSCH PRN SL 02/09/17 15:45 (Catapres) 0.1 mg UNSCH PRN PO 02/09/17 15:45 02/21/17 18:36 (Gelfoam 12 Mm/7 Mm Top) 1 foam UNSCH PRN TOP 02/09/17 15:45 (Melatonin) 5 mg HS PRN PO 02/10/17 17:15 02/10/17 22:08 (Epogen Inj) 20,000 units UNSCH PRN IV 02/12/17 10:15 02/24/17 12:28 (Roxicodone) 10 mg Q4H PRN PO 02/13/17 11:15 02/23/17 20:28 (Heparin Inj) 5,000 units Q12HR SQ 02/16/17 21:00 02/24/17 08:21 (Aspirin Chew) 81 mg DAILY CHEW 02/17/17 09:00 02/24/17 08:20 (Lasix Inj) 80 mg BID IV PUSH 02/21/17 21:00 02/24/17 08:20 (Mycostatin Liq) 5 ml QID SWISH-SWAL 02/22/17 13:00 02/24/17 08:20 (Ativan Inj) 1 mg ONCE PRN IV PUSH 02/24/17 11:15 02/25/17 11:14 Vital Signs / I&O Vital Signs Date Time Temp Pulse Resp B/P Pulse Ox O2 Delivery O2 Flow Rate FiO2 02/24/17 09:37 Nasal Cannula 2.00 45 02/24/17 08:01 98.7 75 17 135/63 99 02/24/17 04:00 Nasal Cannula 2.00 02/24/17 04:00 98.3 84 18 160/73 96 02/24/17 00:00 Nasal Cannula 2.00 02/24/17 00:00 98.5 76 18 136/63 98 02/23/17 20:06 64 02/23/17 20:00 97.8 65 18 128/87 98 02/23/17 20:00 Nasal Cannula 2.00 02/23/17 16:00 97.9 74 18 164/71 98 02/23/17 15:40 97 Nasal Cannula 1.50 I/O 02/23/17 02/23/17 02/23/17 02/24/17 02/24/17 02/24/17 07:00 15:00 23:00 07:00 15:00 23:00 Intake Total 240 ml 240 ml 100 ml Output Total 460 ml 450 ml 550 ml 50 ml 1000 ml Balance -220 ml -210 ml -550 ml 50 ml -1000 ml Intake Oral 240 ml 240 ml 100 ml Output Urine Total 450 ml 450 ml 450 ml 50 ml Drainage Total 10 ml 100 ml Hemodialysis 1000 ml # Bowel Movements 0 0 Physical Exam GENERAL: NAD, alert and awake SKIN: Warm and dry. HEAD: Atraumatic. Normocephalic. EYES: Pupils equal and round. No scleral icterus. No injection or drainage. ENT: No nasal bleeding or discharge. Mucous membranes pink and moist. NECK: Trachea midline. No JVD. CARDIOVASCULAR: Regular rate and rhythm. RESPIRATORY: No accessory muscle use. Decreased breath sounds bilaterally, mild crackles GASTROINTESTINAL: Abdomen soft, non-tender, nondistended. Hepatic and splenic margins not palpable. MUSCULOSKELETAL: Extremities without clubbing, cyanosis, or edema. No obvious deformities. NEUROLOGICAL: Awake and alert. No obvious cranial nerve deficits. States she can not move her legs PSYCHIATRIC: Appropriate mood and affect; insight and judgment normal. Laboratory Laboratory Tests Test 02/24/17 05:38 White Blood Count 7.3 TH/MM3 Red Blood Count 4.36 MIL/MM3 Hemoglobin 9.1 GM/DL Hematocrit 29.2 % Mean Corpuscular Volume 66.9 FL Mean Corpuscular Hemoglobin 20.9 PG Mean Corpuscular Hemoglobin 31.2 % Concent Red Cell Distribution Width 17.2 % Platelet Count 477 TH/MM3 Mean Platelet Volume 7.9 FL Neutrophils (%) (Auto) 58.7 % Lymphocytes (%) (Auto) 21.5 % Monocytes (%) (Auto) 10.2 % Eosinophils (%) (Auto) 8.5 % Basophils (%) (Auto) 1.1 % Neutrophils # (Auto) 4.3 TH/MM3 Lymphocytes # (Auto) 1.6 TH/MM3 Monocytes # (Auto) 0.7 TH/MM3 Eosinophils # (Auto) 0.6 TH/MM3 Basophils # (Auto) 0.1 TH/MM3 CBC Comment DIFF FINAL Differential Comment Sodium Level 135 MEQ/L Potassium Level 4.3 MEQ/L Chloride Level 94 MEQ/L Carbon Dioxide Level 29.8 MEQ/L Anion Gap 11 MEQ/L Blood Urea Nitrogen 77 MG/DL Creatinine 7.44 MG/DL Estimat Glomerular Filtration 7 ML/MIN Rate Random Glucose 96 MG/DL Calcium Level 8.8 MG/DL Total Bilirubin 0.4 MG/DL Aspartate Amino Transf 45 U/L (AST/SGOT) Alanine Aminotransferase 37 U/L (ALT/SGPT) Alkaline Phosphatase 109 U/L Total Creatine Kinase 74 U/L Total Protein 8.6 GM/DL Albumin 2.8 GM/DL Vitamin B12 Level 1927 PG/ML Rapid Plasma Reagin NON-REACTIVE Assessment and Plan Problem List: (1) Cholecystitis (2) Anemia (3) Acute kidney failure (4) Stage 4 chronic kidney disease (5) Diabetes mellitus (6) CHF (congestive heart failure) (7) Cardiomyopathy Assessment and Plan 1) SOB HD/fluid management per nephrology, oxygen demand decreased with fluid off from HD Down to 2L O2 2) Cardiomyopathy of unknown cause, never evaluated Not the best candidate for revascularization with comorbidities and cholecystomy tube Con't with medical management for now 3) Neuro evaluation, await MRI Problem Qualifiers (1) Anemia: Chin Hernandez DO Feb 24, 2017 13:12
--- NOTE | 2017-02-24 16:29 | HHI.NPPN ---
Subjective History of Present Illness 66-year-old female with a past medical history of hypertension, diabetes mellitus, chronic kidney disease, anemia and chronic back pain, who was admitted because of abdominal pain, nausea and vomiting. I was called to see the patient because of elevated BUN and creatinine. The patient has known history of chronic kidney disease and she had acute kidney injury. Additional Remarks Patient is alert, breathing is better, now with nasal cannula, started eating better. Review of Systems General Constitutional: Fatigue Objective Data Data 02/23/17 02/24/17 18:59 06:59 Intake Total 240 ml 100 ml Output Total 450 ml 600 ml Balance -210 ml -500 ml Intake Oral 240 ml 100 ml Output Urine Total 450 ml 500 ml Drainage Total 100 ml # Bowel Movements 0 Vital Signs Date Time Temp Pulse Resp B/P Pulse Ox O2 Delivery O2 Flow Rate FiO2 02/24/17 14:00 98.6 79 18 186/79 98 02/24/17 09:37 Nasal Cannula 2.00 45 02/24/17 08:01 98.7 75 17 135/63 99 02/24/17 04:00 Nasal Cannula 2.00 02/24/17 04:00 98.3 84 18 160/73 96 02/24/17 00:00 Nasal Cannula 2.00 02/24/17 00:00 98.5 76 18 136/63 98 02/23/17 20:06 64 02/23/17 20:00 97.8 65 18 128/87 98 02/23/17 20:00 Nasal Cannula 2.00 -: 02/24/17 0538 02/24/17 0538 Physical Exam General Appearance Remarks Mild resp. distress. Eyes Eye Exam: Pupils Equal Throat Throat Exam: Oral Mucosa [place] & Moist Neck Neck Exam: Neck Supple Pulmonary Resp Exam: Breath Sounds Equal, No Distress, Rhonchi, Decreased Bases, Diminished Breath Sounds Cardiology CV Exam: Regular, Normal Sinus Rhythm Gastrointestinal/Abdomen GI Exam: Soft, Bowel Sounds Present, Distended Extremeties Extremities Exam: Trace Edema Neurologic Neuro Exam: Alert, Awake, Oriented Psychiatric Psych Exam: Appropriate Responses Assessment/Plan Assessment Summary: GRADY/Acute Renal Failure, Hypotension, CKD Stage IV Problem List: (1) Acute kidney failure Plan: Urine out put is better with Lasix. HD done today and 1 liter removed. Continue dialysis support as needed. Avoid nephrotoxic agents. On Lasix. to 80 mg IV Q12. Watch for signs of renal recovery. On fluid restriction, D/W the family at bed side. (2) Diabetes mellitus (3) CHF (congestive heart failure) (4) Cholecystitis (5) Gallstones (6) Elevated LFTs (7) Anemia (8) Stage 4 chronic kidney disease Problem Qualifiers (1) Anemia: Svitlana Cook MD Feb 24, 2017 16:29
--- NOTE | 2017-02-24 18:22 | HHI.PR ---
Subjective Remarks Dialysis done today. MRI study is pending for lower spine. Patient still has no ability to move her lower extremities. Respiratory status is improved. Cognition is improved. Objective Vital Signs Date Time Temp Pulse Resp B/P Pulse Ox O2 Delivery O2 Flow Rate FiO2 02/24/17 14:00 98.6 79 18 186/79 98 02/24/17 09:37 Nasal Cannula 2.00 45 02/24/17 08:01 98.7 75 17 135/63 99 02/24/17 04:00 Nasal Cannula 2.00 02/24/17 04:00 98.3 84 18 160/73 96 02/24/17 00:00 Nasal Cannula 2.00 02/24/17 00:00 98.5 76 18 136/63 98 02/23/17 20:06 64 02/23/17 20:00 97.8 65 18 128/87 98 02/23/17 20:00 Nasal Cannula 2.00 I/O 02/23/17 02/23/17 02/23/17 02/24/17 02/24/17 02/24/17 06:59 14:59 22:59 06:59 14:59 22:59 Intake Total 240 ml 240 ml 100 ml Output Total 460 ml 450 ml 550 ml 50 ml 1000 ml Balance -220 ml -210 ml -550 ml 50 ml -1000 ml Intake Oral 240 ml 240 ml 100 ml Output Urine Total 450 ml 450 ml 450 ml 50 ml Drainage Total 10 ml 100 ml Hemodialysis 1000 ml # Bowel Movements 0 0 Result Diagram: 02/24/17 0538 02/24/17 0538 Procedures None Objective Remarks GENERAL: NAD, A&Ox3 HEAD: Normocephalic. Oxygen mask on. NECK: Supple, trachea midline. No lymphadenopathy. EYES: No scleral icterus. No injection or drainage. CARDIOVASCULAR: Regular rate and rhythm without murmurs, gallops, or rubs. RESPIRATORY: Breath sounds equal bilaterally. No accessory muscle use. GASTROINTESTINAL: Abdomen soft, non-tender, nondistended. MUSCULOSKELETAL: No cyanosis, or edema. SKIN: Warm and dry. NEURO: Bilateral lower extremity sensations are intact but motor functions are not. Flaccidity at upper and lower legs. MOUTH: Improving Oral benjamin at buccal mucosa and tongue A/P Problem List: (1) Cholecystitis ICD Code: K81.9 (2) Anemia ICD Code: D64.9 (3) Acute kidney failure ICD Code: N17.9 (4) Stage 4 chronic kidney disease ICD Code: N18.4 (5) Diabetes mellitus ICD Code: 250.00 (6) Cholecystostomy care ICD Code: Z43.4 (7) Cardiomyopathy ICD Code: I42.9 (8) Complications, dialysis, catheter, mechanical ICD Code: T82.49XA (9) Gallstones ICD Code: K80.20 (10) Elevated LFTs ICD Code: R79.89 (11) DM (diabetes mellitus) ICD Code: E11.9 (12) Renal insufficiency ICD Code: N28.9 (13) CHF (congestive heart failure) ICD Code: I50.9 Assessment and Plan Assessment and plan 66-year-old female admitted secondary to cholecystitis. Complications of acute renal failure, anemia, CHF, pleural effusion. Now status post cholecystectomy with drain. Improving oral candidiasis. No improvement in bilateral lower extremities. Patient remains flaccid in these extremities. MRI of the lumbar spine pending. Neurology following. CBC and BMP ordered. Bilateral Lower Extremity Flaccidity Bilateral nature suggests spinal or neurodegenerative etiology MRI of lumbar spine Neurology consult Follow clinically Monitor for any progression Acute cholecystitis Status post cholecystostomy tube placement by IR Now off Zosyn Follow urine cultures Monitor for any fevers Follow CBC Continue pain control Continue postop wound care Monitor biliary drain output Acute systolic CHF Pulm Edema pleural effusion: 40 mg IV Lasix daily 2D ECHO, EF of 30-35%. Daily aspirin Low sodium diet Monitor pleural effusions Pulmonology consulted Cardiology following Acute on chronic kidney injury Metabolic acidosis secondary to acute renal failure Nephrology following Vas-Cath present Continue hemodialysis Hypotension Resolved Continue midodrine as needed Follow blood pressures Diabetes mellitus Insulin sliding scale Levemir Diabetic diet Follow blood sugars Chronic pain syndrome Insomnia Melatonin 5 mg by mouth daily at bedtime PRN for insomnia Continue as needed pain control treatments Mild protein calorie Malnutrition Calorie count ongoing Nutrition is consulted anemia of chronic disease Epogen and IV iron. Follow CBC DVT prophylaxis SCDs heparin Discharge Planning May need pleural effusion prior to discharge Daughter Johanny [phone] Problem Qualifiers (1) Anemia: Martinez Cordon MD Feb 24, 2017 18:22
--- NOTE | 2017-02-24 19:28 | HHI.PR ---
Review/Management Daily Summary 02/24 unchanged multiple family members at bedside MRI pending Subjective Subjective Comments No acute events reported No headache No chest pain No dyspnea Active Medications Current Medications Medications (Trade) Dose Ordered Sig/Lo Route Start Time Stop Time Status Last Admin (D50w (Vial) Inj) 50 ml UNSCH PRN IV 02/05/17 19:30 Glucagon 1 mg 1 mg UNSCH PRN OTHER 02/05/17 19:30 (NS 1000 ml Inj) 1,000 ml @ 50 mls/hr Q20H IV 02/05/17 19:16 Hold 02/06/17 04:19 (NS Flush) 2 ml UNSCH PRN IV FLUSH 02/05/17 19:30 (NS Flush) 2 ml BID IV FLUSH 02/05/17 21:00 02/24/17 08:21 (Zofran Inj) 4 mg Q6H PRN IVP 02/05/17 19:30 02/12/17 03:32 (Tylenol) 650 mg Q6H PRN PO 02/05/17 19:30 (Roxicodone) 5 mg Q4H PRN PO 02/05/17 19:30 02/12/17 22:10 (Terese-Colace) 1 tab BID PO 02/05/17 21:00 02/24/17 08:20 (Milk Of Magnesia Liq) 30 ml Q12H PRN PO 02/05/17 19:30 02/06/17 07:59 (Senokot) 17.2 mg Q12H PRN PO 02/05/17 19:30 (Dulcolax Supp) 10 mg DAILY PRN RECTAL 02/05/17 19:30 (Lactulose Liq) 30 ml DAILY PRN PO 02/05/17 19:30 02/06/17 17:46 (Norvasc) 10 mg DAILY PO 02/06/17 09:00 Hold 02/06/17 07:57 (Coreg) 3.125 mg Q12HR PO 02/05/17 21:00 02/24/17 08:20 (Zanaflex) 4 mg TID PO 02/06/17 09:00 02/24/17 18:15 (Levemir Inj) 10 units DAILY SQ 02/06/17 09:00 02/24/17 08:26 (Morphine Inj) 1 mg Q4HR PRN IV 02/06/17 12:00 02/17/17 17:57 (Proamatine) 10 mg TID@, PO 02/08/17 17:00 02/24/17 18:15 Miscellaneous Information Patient in critical care unit? Ass... Q361D .XX 02/08/17 23:00 (NS Flush) UNSCH PRN IVF 02/09/17 15:30 Heparin Sodium (Porcine) UNSCH PRN IV FLUSH 02/09/17 15:30 (NS 1000 ml Inj) 1,000 ml @ 0 mls/hr Q0M PRN IV 02/09/17 15:39 02/24/17 12:27 Heparin Sodium (Porcine) 8000 units 8,000 units UNSCH PRN IVF 02/09/17 15:45 Sodium Chloride 1,000 ml @ 200 mls/hr Q5H PRN IV 02/09/17 15:39 (NS 1000 ml Inj) 1,000 ml @ 0 mls/hr Q0M PRN IV 02/09/17 15:39 (Mannitol Inj) 12.5 gm UNSCH PRN IV 02/09/17 15:45 02/20/17 15:13 (Albumin 25% Inj) 25 gm UNSCH PRN IV 02/09/17 15:45 02/24/17 12:27 (NS Flush) 5 ml UNSCH PRN IV FLUSH 02/09/17 15:45 02/14/17 10:15 (Heparin Inj) UNSCH PRN .XX 02/09/17 15:45 02/24/17 12:26 (Gentamicin (Dialysis) Inj) 20 mg UNSCH PRN IV 02/09/17 15:45 02/24/17 12:27 (Zofran Inj) 4 mg UNSCH PRN IV 02/09/17 15:45 02/21/17 18:11 (Tylenol) 650 mg UNSCH PRN PO 02/09/17 15:45 (Benadryl) 25 mg UNSCH PRN PO 02/09/17 15:45 02/23/17 09:01 (Nitrostat Sl) 0.4 mg UNSCH PRN SL 02/09/17 15:45 (Catapres) 0.1 mg UNSCH PRN PO 02/09/17 15:45 02/21/17 18:36 (Gelfoam 12 Mm/7 Mm Top) 1 foam UNSCH PRN TOP 02/09/17 15:45 (Melatonin) 5 mg HS PRN PO 02/10/17 17:15 02/10/17 22:08 (Epogen Inj) 20,000 units UNSCH PRN IV 02/12/17 10:15 02/24/17 12:28 (Roxicodone) 10 mg Q4H PRN PO 02/13/17 11:15 02/24/17 18:22 (Heparin Inj) 5,000 units Q12HR SQ 02/16/17 21:00 02/24/17 08:21 (Aspirin Chew) 81 mg DAILY CHEW 02/17/17 09:00 02/24/17 08:20 (Lasix Inj) 80 mg BID IV PUSH 02/21/17 21:00 02/24/17 08:20 (Mycostatin Liq) 5 ml QID SWISH-SWAL 02/22/17 13:00 02/24/17 18:15 (Ativan Inj) 1 mg ONCE PRN IV PUSH 02/24/17 11:15 02/25/17 11:14 02/24/17 18:14 Allergies Allergies Coded Allergies Lisinopril (Unverified Allergy, Intermediate, Cough, 01/19/17) Exam I&O / VS 02/23/17 02/23/17 02/24/17 15:00 23:00 07:00 Intake Total 240 ml 100 ml Output Total 450 ml 550 ml 50 ml Balance -210 ml -550 ml 50 ml Intake Oral 240 ml 100 ml Output Urine Total 450 ml 450 ml 50 ml Drainage Total 100 ml # Bowel Movements 0 Vital Signs Date Time Temp Pulse Resp B/P Pulse Ox O2 Delivery O2 Flow Rate FiO2 02/24/17 16:00 98.8 78 18 146/78 99 02/24/17 14:00 98.6 79 18 186/79 98 02/24/17 09:37 Nasal Cannula 2.00 45 02/24/17 08:01 98.7 75 17 135/63 99 02/24/17 04:00 Nasal Cannula 2.00 02/24/17 04:00 98.3 84 18 160/73 96 02/24/17 00:00 Nasal Cannula 2.00 02/24/17 00:00 98.5 76 18 136/63 98 02/23/17 20:06 64 02/23/17 20:00 97.8 65 18 128/87 98 02/23/17 20:00 Nasal Cannula 2.00 Objective Micro and Labs Laboratory Tests Test 02/24/17 05:38 White Blood Count 7.3 Red Blood Count 4.36 Hemoglobin 9.1 Hematocrit 29.2 Mean Corpuscular Volume 66.9 Mean Corpuscular Hemoglobin 20.9 Mean Corpuscular Hemoglobin 31.2 Concent Red Cell Distribution Width 17.2 Platelet Count 477 Mean Platelet Volume 7.9 Neutrophils (%) (Auto) 58.7 Lymphocytes (%) (Auto) 21.5 Monocytes (%) (Auto) 10.2 Eosinophils (%) (Auto) 8.5 Basophils (%) (Auto) 1.1 Neutrophils # (Auto) 4.3 Lymphocytes # (Auto) 1.6 Monocytes # (Auto) 0.7 Eosinophils # (Auto) 0.6 Basophils # (Auto) 0.1 CBC Comment DIFF FINAL Differential Comment Sodium Level 135 Potassium Level 4.3 Chloride Level 94 Carbon Dioxide Level 29.8 Anion Gap 11 Blood Urea Nitrogen 77 Creatinine 7.44 Estimat Glomerular Filtration 7 Rate Random Glucose 96 Calcium Level 8.8 Total Bilirubin 0.4 Aspartate Amino Transf 45 (AST/SGOT) Alanine Aminotransferase 37 (ALT/SGPT) Alkaline Phosphatase 109 Total Creatine Kinase 74 Total Protein 8.6 Albumin 2.8 Vitamin B12 Level 1927 Rapid Plasma Reagin NON-REACTIVE Nova Mccoy MD Feb 24, 2017 19:28
--- NOTE | 2017-02-24 19:38 | RADRPT ---
EXAM DATE/TIME: 02/24/2017 18:38 [facility] COMPARISON: No previous studies available for comparison. INDICATIONS : Lower extremity weakness. MEDICAL HISTORY : Renal disease, end stage. SURGICAL HISTORY : Cholecystostomy. Retina surgery. ENCOUNTER: Subsequent ACUITY: 3 day PAIN SCORE: 0/10 LOCATION: back. TECHNIQUE: Multiplanar multisequence MRI of the thoracic spine was performed. FINDINGS: There is moderate epidural lipomatosis on the dorsal aspect of the thoracic spinal canal which causes near-complete effacement of the thecal sac around the cord but without significant cord compression. No discrete disc herniations. No fracture or spondylolisthesis. Incidental note made of bilateral pleural effusions. CONCLUSION: 1. Moderate epidural lipomatosis on the dorsal aspect of the thoracic spine most prominent between T4 and T9 resulting in complete effacement of the thecal sac around the cord without significant cord c ompression. No acute bony abnormality. Dmitriy Ramirez MD on February 24, 2017 at 19:32 Board Certified Radiologist. This report was verified electronically.
--- NOTE | 2017-02-24 19:46 | RADRPT ---
EXAM DATE/TIME: 02/24/2017 18:38 [facility] COMPARISON: No previous studies available for comparison. INDICATIONS : Lower extremity weakness. MEDICAL HISTORY : Renal disease, end stage. SURGICAL HISTORY : Cholecystomy. Retina implant. ENCOUNTER: Subsequent ACUITY: 3 day PAIN SCORE: 0/10 LOCATION: back. TECHNIQUE: Multiplanar multisequence MRI of the lumbar spine was performed without contrast. FINDINGS: The most caudal appearing lumbar vertebra is numbered as L5. VERTEBRAE: Homogeneous signal. Normal alignment. CONUS: Normal level and configuration. T12-L1: The thecal sac has a normal diameter. No evidence of disc bulge or protrusion. The neural foramina are patent bilaterally. L1-L2: The thecal sac has a normal diameter. No evidence of disc bulge or protrusion. The neural foramina are patent bilaterally. L2-L3: The thecal sac has a normal diameter. No evidence of disc bulge or protrusion. The neural foramina are patent bilaterally. L3-L4: The thecal sac has a normal diameter. No evidence of disc bulge or protrusion. The neural foramina are patent bilaterally. L4-L5: The thecal sac has a normal diameter. No evidence of disc bulge or protrusion. The neural foramina are patent bilaterally. L5-S1: The thecal sac has a normal diameter. No evidence of disc bulge or protrusion. The neural foramina are patent bilaterally. CONCLUSION: Normal examination for a patient of this age. Dmitriy Ramirez MD on February 24, 2017 at 19:44 Board Certified Radiologist. This report was verified electronically.
[2017-02-25] VITALS (7 sets, daily range): BP systolic 109–160; BP diastolic 53–70; PULSE 70–84; RESP 18–20; TEMP 97.9–98.9; O2SAT 99–100
[2017-02-25] MEDS: INSULIN ASPART SUPPLEMENTAL SCALE SQ SCH ×4 (05:38→21:00)
[2017-02-25] MEDS: MIDODRINE 5 MG TAB PO SCH ×3 (05:38→17:52)
[2017-02-25 06:50] LABS: HEMATOCRIT 26.4 % (35.0-46.0); MEAN CELL VOLUME 66.8 FL (80.0-100.0); MEAN CORPUSCULAR HEMOGLOBIN 20.7 PG (27.0-34.0); PLATELET COUNT 388 TH/MM3 (150-450); RED BLOOD COUNT 3.95 MIL/MM3 (4.00-5.30); RED CELL DISTRIBUTION WIDTH 17.1 % (11.6-17.2); REVIEW FLAG FINAL; WHITE BLOOD COUNT 6.7 TH/MM3 (4.0-11.0)
[2017-02-25 07:27] LABS: BICARBONATE 31.1 MEQ/L (21.0-32.0); POTASSIUM 4.1 MEQ/L (3.5-5.1)
[2017-02-25] MEDS: HEPARIN SODIUM - SQ 10,000 UNITS/ML VIAL SQ SCH ×2 (08:19→22:09)
[2017-02-25] MEDS: DOCUSATE SODIUM 50 MG/SENNA 8.6 MG TAB PO SCH ×2 (08:19→22:10)
[2017-02-25] MEDS: ASPIRIN 81 MG CHEW TAB CHEW SCH (08:19)
[2017-02-25] MEDS: CARVEDILOL 3.125 MG TAB PO SCH ×2 (08:19→22:09)
[2017-02-25] MEDS: NYSTATIN SUSP 500,000 U/5 ML CUP SWISH-SWAL SCH ×4 (08:19→22:09)
[2017-02-25] MEDS: SODIUM CHLORIDE 0.9% FLUSH 10 ML FLUSH IV FLUSH SCH ×2 (08:19→21:00)
[2017-02-25] MEDS: FUROSEMIDE 40 MG/4 ML VIAL IV PUSH SCH ×2 (08:20→22:09)
[2017-02-25] MEDS: INSULIN DETEMIR 100 UNITS/ML VIAL SQ SCH (08:43)
--- NOTE | 2017-02-25 13:58 | HHI.HCPN ---
Met with Mrs. Rg. She is currently eating lunch, she tells me her appetite is minimal but she "is making herself eat". Denies any pain, shortness of breath , or other issues. She denies any questions at this time. Declines any further conversation at this time. Daughter Johanny at bedside. No questions or concerns. Provided palliative care contact information. Palliative care will continue to follow as needed throughout hospitalization. Monique Hughes, MANUFACTURING ENGINEERING INTERN Feb 25, 2017 13:58
--- NOTE | 2017-02-25 15:10 | HHI.PR ---
Subjective Remarks Ricardo lower extremity paralysis unchanged. She wants more PT. Objective Vitals Vital Signs Date Time Temp Pulse Resp B/P Pulse Ox O2 Delivery O2 Flow Rate FiO2 02/25/17 12:34 98.4 78 18 110/54 100 02/25/17 12:34 Nasal Cannula 2.00 45 02/25/17 11:51 100 Nasal Cannula 1.00 02/25/17 08:00 98.9 84 18 144/65 99 02/25/17 04:00 98.1 80 20 154/67 99 02/25/17 04:00 Nasal Cannula 2.00 02/25/17 00:00 98.7 83 20 141/64 100 02/24/17 23:55 Nasal Cannula 2.00 02/24/17 20:21 91 02/24/17 20:00 Nasal Cannula 2.00 02/24/17 20:00 99.8 88 18 170/74 99 02/24/17 16:00 98.8 78 18 146/78 99 I/O 02/24/17 02/24/17 02/24/17 02/25/17 02/25/17 02/25/17 07:00 15:00 23:00 07:00 15:00 23:00 Intake Total 100 ml 380 ml 284 ml 40 ml Output Total 50 ml 1600 ml 300 ml 265 ml Balance 50 ml -1220 ml -16 ml -225 ml Intake Oral 100 ml 380 ml 280 ml 40 ml IV Total 4 ml Output Urine Total 50 ml 600 ml 300 ml 250 ml Drainage Total 15 ml Hemodialysis 1000 ml # Bowel Movements 0 0 0 Result Diagram: 02/25/1751102/25/17 0512 Objective Remarks GENERAL: Chronically ill appearing, in no apparent distress. CARDIOVASCULAR: Regular rate and rhythm without murmurs, gallops, or rubs. RESPIRATORY: Clear to auscultation. Breath sounds equal bilaterally. No wheezes , rales, or rhonchi. GASTROINTESTINAL: Abdomen soft, non-tender, nondistended. Normal active bowel sounds MUSCULOSKELETAL: Extremities without clubbing, cyanosis, or edema. NEURO: Alert & Oriented x4 to person, place, time, situation. Ricardo lower extremity paralysis. UE 4+/5 Procedures Vas-Cath placement per IR cholecystostomy tube placement A/P Problem List: (1) Cholecystitis ICD Code: K81.9 Status: Acute (2) Elevated LFTs ICD Code: R79.89 Status: Acute (3) Renal insufficiency ICD Code: N28.9 Status: Acute (4) CHF (congestive heart failure) ICD Code: I50.9 Status: Chronic (5) DM (diabetes mellitus) ICD Code: E11.9 Status: Acute Assessment and Plan 66-year-old female admitted secondary to cholecystitis. Complications of acute renal failure, anemia, CHF, pleural effusion. Now status post cholecystectomy with drain placement. Bilateral Lower Extremity Flaccidity MRI of lumbar spine, no cord compression.? ischemia per Neurology. Will need donor floor technician care Neurology following Follow clinically Monitor for any progression Acute cholecystitis Status post cholecystostomy tube placement by IR Now off Zosyn Follow urine cultures Monitor for any fevers Follow CBC Continue pain control Continue postop wound care Monitor biliary drain output Acute systolic CHF Pulm Edema pleural effusion: 40 mg IV Lasix daily 2D ECHO, EF of 30-35%. Daily aspirin Low sodium diet Monitor pleural effusions Pulmonology following Cardiology following Acute on chronic kidney injury Metabolic acidosis secondary to acute renal failure Nephrology following Vas-Cath present Continue hemodialysis Hypotension Resolved Continue midodrine as needed Follow blood pressures Diabetes mellitus Insulin sliding scale Levemir Diabetic diet Follow blood sugars Chronic pain syndrome Insomnia Melatonin 5 mg by mouth daily at bedtime PRN for insomnia Continue as needed pain control treatments Mild protein calorie Malnutrition Calorie count ongoing Nutrition is consulted anemia of chronic disease Epogen and IV iron. Follow CBC DVT prophylaxis SCDs heparin Marcel Morocho MD Feb 25, 2017 15:10
--- NOTE | 2017-02-25 15:53 | PD.CARD.PN ---
Subjective Subjective Remarks No chest pain/SOB Objective Medications Current Medications Medications (Trade) Dose Ordered Sig/Lo Route Start Time Stop Time Status Last Admin (D50w (Vial) Inj) 50 ml UNSCH PRN IV 02/05/17 19:30 Glucagon 1 mg 1 mg UNSCH PRN OTHER 02/05/17 19:30 (NS 1000 ml Inj) 1,000 ml @ 50 mls/hr Q20H IV 02/05/17 19:16 Hold 02/06/17 04:19 (NS Flush) 2 ml UNSCH PRN IV FLUSH 02/05/17 19:30 (NS Flush) 2 ml BID IV FLUSH 02/05/17 21:00 02/25/17 08:19 (Zofran Inj) 4 mg Q6H PRN IVP 02/05/17 19:30 02/12/17 03:32 (Tylenol) 650 mg Q6H PRN PO 02/05/17 19:30 (Roxicodone) 5 mg Q4H PRN PO 02/05/17 19:30 02/12/17 22:10 (Terese-Colace) 1 tab BID PO 02/05/17 21:00 02/25/17 08:19 (Milk Of Magnesia Liq) 30 ml Q12H PRN PO 02/05/17 19:30 02/06/17 07:59 (Senokot) 17.2 mg Q12H PRN PO 02/05/17 19:30 (Dulcolax Supp) 10 mg DAILY PRN RECTAL 02/05/17 19:30 (Lactulose Liq) 30 ml DAILY PRN PO 02/05/17 19:30 02/06/17 17:46 (Norvasc) 10 mg DAILY PO 02/06/17 09:00 Hold 02/06/17 07:57 (Coreg) 3.125 mg Q12HR PO 02/05/17 21:00 02/25/17 08:19 (Zanaflex) 4 mg TID PO 02/06/17 09:00 02/25/17 13:20 (Levemir Inj) 10 units DAILY SQ 02/06/17 09:00 02/25/17 08:43 (Morphine Inj) 1 mg Q4HR PRN IV 02/06/17 12:00 02/17/17 17:57 (Proamatine) 10 mg TID@,, PO 02/08/17 17:00 02/25/17 13:19 Miscellaneous Information Patient in critical care unit? Ass... Q361D .XX 02/08/17 23:00 (NS Flush) UNSCH PRN IVF 02/09/17 15:30 Heparin Sodium (Porcine) UNSCH PRN IV FLUSH 02/09/17 15:30 (NS 1000 ml Inj) 1,000 ml @ 0 mls/hr Q0M PRN IV 02/09/17 15:39 02/24/17 12:27 Heparin Sodium (Porcine) 8000 units 8,000 units UNSCH PRN IVF 02/09/17 15:45 Sodium Chloride 1,000 ml @ 200 mls/hr Q5H PRN IV 02/09/17 15:39 (NS 1000 ml Inj) 1,000 ml @ 0 mls/hr Q0M PRN IV 02/09/17 15:39 (Mannitol Inj) 12.5 gm UNSCH PRN IV 02/09/17 15:45 02/20/17 15:13 (Albumin 25% Inj) 25 gm UNSCH PRN IV 02/09/17 15:45 02/24/17 12:27 (NS Flush) 5 ml UNSCH PRN IV FLUSH 02/09/17 15:45 02/14/17 10:15 (Heparin Inj) UNSCH PRN .XX 02/09/17 15:45 02/24/17 12:26 (Gentamicin (Dialysis) Inj) 20 mg UNSCH PRN IV 02/09/17 15:45 02/24/17 12:27 (Zofran Inj) 4 mg UNSCH PRN IV 02/09/17 15:45 02/21/17 18:11 (Tylenol) 650 mg UNSCH PRN PO 02/09/17 15:45 (Benadryl) 25 mg UNSCH PRN PO 02/09/17 15:45 02/23/17 09:01 (Nitrostat Sl) 0.4 mg UNSCH PRN SL 02/09/17 15:45 (Catapres) 0.1 mg UNSCH PRN PO 02/09/17 15:45 02/21/17 18:36 (Gelfoam 12 Mm/7 Mm Top) 1 foam UNSCH PRN TOP 02/09/17 15:45 (Melatonin) 5 mg HS PRN PO 02/10/17 17:15 02/10/17 22:08 (Epogen Inj) 20,000 units UNSCH PRN IV 02/12/17 10:15 02/24/17 12:28 (Roxicodone) 10 mg Q4H PRN PO 02/13/17 11:15 02/25/17 13:20 (Heparin Inj) 5,000 units Q12HR SQ 02/16/17 21:00 02/25/17 08:19 (Aspirin Chew) 81 mg DAILY CHEW 02/17/17 09:00 02/25/17 08:19 (Lasix Inj) 80 mg BID IV PUSH 02/21/17 21:00 02/25/17 08:20 (Mycostatin Liq) 5 ml QID SWISH-SWAL 02/22/17 13:00 02/25/17 13:20 Vital Signs / I&O Vital Signs Date Time Temp Pulse Resp B/P Pulse Ox O2 Delivery O2 Flow Rate FiO2 02/25/17 12:34 98.4 78 18 110/54 100 02/25/17 12:34 Nasal Cannula 2.00 45 02/25/17 11:51 100 Nasal Cannula 1.00 02/25/17 08:00 98.9 84 18 144/65 99 02/25/17 04:00 98.1 80 20 154/67 99 02/25/17 04:00 Nasal Cannula 2.00 02/25/17 00:00 98.7 83 20 141/64 100 02/24/17 23:55 Nasal Cannula 2.00 02/24/17 20:21 91 02/24/17 20:00 Nasal Cannula 2.00 02/24/17 20:00 99.8 88 18 170/74 99 02/24/17 16:00 98.8 78 18 146/78 99 I/O 02/24/17 02/24/17 02/24/17 02/25/17 02/25/17 02/25/17 07:00 15:00 23:00 07:00 15:00 23:00 Intake Total 100 ml 380 ml 284 ml 40 ml Output Total 50 ml 1600 ml 300 ml 265 ml Balance 50 ml -1220 ml -16 ml -225 ml Intake Oral 100 ml 380 ml 280 ml 40 ml IV Total 4 ml Output Urine Total 50 ml 600 ml 300 ml 250 ml Drainage Total 15 ml Hemodialysis 1000 ml # Bowel Movements 0 0 0 Physical Exam GENERAL: NAD, alert and awake SKIN: Warm and dry. HEAD: Atraumatic. Normocephalic. EYES: Pupils equal and round. No scleral icterus. No injection or drainage. ENT: No nasal bleeding or discharge. Mucous membranes pink and moist. NECK: Trachea midline. No JVD. CARDIOVASCULAR: Regular rate and rhythm. RESPIRATORY: No accessory muscle use. Decreased breath sounds bilaterally, mild crackles GASTROINTESTINAL: Abdomen soft, non-tender, nondistended. Hepatic and splenic margins not palpable. MUSCULOSKELETAL: Extremities without clubbing, cyanosis, or edema. No obvious deformities. NEUROLOGICAL: Awake and alert. No obvious cranial nerve deficits. States she can not move her legs PSYCHIATRIC: Appropriate mood and affect; insight and judgment normal. Laboratory Laboratory Tests Test 02/25/17 05:12 White Blood Count 6.7 TH/MM3 Red Blood Count 3.95 MIL/MM3 Hemoglobin 8.2 GM/DL Hematocrit 26.4 % Mean Corpuscular Volume 66.8 FL Mean Corpuscular Hemoglobin 20.7 PG Mean Corpuscular Hemoglobin 31.0 % Concent Red Cell Distribution Width 17.1 % Platelet Count 388 TH/MM3 Mean Platelet Volume 7.8 FL Sodium Level 138 MEQ/L Potassium Level 4.1 MEQ/L Chloride Level 96 MEQ/L Carbon Dioxide Level 31.1 MEQ/L Anion Gap 11 MEQ/L Blood Urea Nitrogen 46 MG/DL Creatinine 5.60 MG/DL Estimat Glomerular Filtration 9 ML/MIN Rate Random Glucose 109 MG/DL Calcium Level 8.9 MG/DL Assessment and Plan Problem List: (1) Cholecystitis (2) Anemia (3) Acute kidney failure (4) Stage 4 chronic kidney disease (5) Diabetes mellitus (6) CHF (congestive heart failure) (7) Cardiomyopathy Assessment and Plan 1) SOB HD/fluid management per nephrology, oxygen demand decreased with fluid off from HD Down to 2L O2 Increased urine output Only 1L off on 02/24/17, but overall not needing increased oxygen as before 2) Cardiomyopathy of unknown cause, never evaluated Not the best candidate for revascularization with comorbidities and cholecystomy tube Con't with medical management for now Discussed with daughter 3) Neuro evaluation for leg weakness Problem Qualifiers (1) Anemia: Chin Hernandez DO Feb 25, 2017 15:53
--- NOTE | 2017-02-25 15:55 | HHI.NPPN ---
Subjective History of Present Illness 66-year-old female with a past medical history of hypertension, diabetes mellitus, chronic kidney disease, anemia and chronic back pain, who was admitted because of abdominal pain, nausea and vomiting. I was called to see the patient because of elevated BUN and creatinine. The patient has known history of chronic kidney disease and she had acute kidney injury. Additional Remarks Patient is alert, breathing is better, now with nasal cannula, not in distress. Review of Systems General Constitutional: Fatigue Objective Data Data 02/24/17 02/25/17 18:59 06:59 Intake Total 380 ml 324 ml Output Total 1600 ml 565 ml Balance -1220 ml -241 ml Intake Oral 380 ml 320 ml IV Total 4 ml Output Urine Total 600 ml 550 ml Drainage Total 15 ml Hemodialysis 1000 ml # Bowel Movements 0 0 Vital Signs Date Time Temp Pulse Resp B/P Pulse Ox O2 Delivery O2 Flow Rate FiO2 02/25/17 12:34 98.4 78 18 110/54 100 02/25/17 12:34 Nasal Cannula 2.00 45 02/25/17 11:51 100 Nasal Cannula 1.00 02/25/17 08:00 98.9 84 18 144/65 99 02/25/17 04:00 98.1 80 20 154/67 99 02/25/17 04:00 Nasal Cannula 2.00 02/25/17 00:00 98.7 83 20 141/64 100 02/24/17 23:55 Nasal Cannula 2.00 02/24/17 20:21 91 02/24/17 20:00 Nasal Cannula 2.00 02/24/17 20:00 99.8 88 18 170/74 99 02/24/17 16:00 98.8 78 18 146/78 99 -: 02/25/17 0512 02/25/17 0512 Physical Exam General Appearance Remarks Mild resp. distress. Eyes Eye Exam: Pupils Equal Throat Throat Exam: Oral Mucosa [place] & Moist Neck Neck Exam: Neck Supple Pulmonary Resp Exam: Breath Sounds Equal, No Distress, Rhonchi, Decreased Bases, Diminished Breath Sounds Cardiology CV Exam: Regular, Normal Sinus Rhythm Gastrointestinal/Abdomen GI Exam: Soft, Bowel Sounds Present, Distended Extremeties Extremities Exam: Trace Edema Neurologic Neuro Exam: Alert, Awake, Oriented Psychiatric Psych Exam: Appropriate Responses Assessment/Plan Assessment Summary: GRADY/Acute Renal Failure, Hypotension, CKD Stage IV Problem List: (1) Acute kidney failure Plan: Urine out put is better with Lasix. Creatinine still elevated. HD done yesterday. Continue dialysis support as needed. Avoid nephrotoxic agents. On Lasix. to 80 mg IV Q12. Watch for signs of renal recovery. (2) Diabetes mellitus (3) CHF (congestive heart failure) (4) Cholecystitis (5) Gallstones (6) Elevated LFTs (7) Anemia (8) Stage 4 chronic kidney disease Problem Qualifiers (1) Anemia: Svitlana Cook MD Feb 25, 2017 15:55
--- NOTE | 2017-02-25 19:22 | HHI.PR ---
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, ?ischemic will need intermodal truck driver care including sphincter management Subjective Subjective Comments No acute events reported No headache No chest pain No dyspnea Active Medications Current Medications Medications (Trade) Dose Ordered Sig/Lo Route Start Time Stop Time Status Last Admin (D50w (Vial) Inj) 50 ml UNSCH PRN IV 02/05/17 19:30 Glucagon 1 mg 1 mg UNSCH PRN OTHER 02/05/17 19:30 (NS 1000 ml Inj) 1,000 ml @ 50 mls/hr Q20H IV 02/05/17 19:16 Hold 02/06/17 04:19 (NS Flush) 2 ml UNSCH PRN IV FLUSH 02/05/17 19:30 (NS Flush) 2 ml BID IV FLUSH 02/05/17 21:00 02/25/17 08:19 (Zofran Inj) 4 mg Q6H PRN IVP 02/05/17 19:30 02/12/17 03:32 (Tylenol) 650 mg Q6H PRN PO 02/05/17 19:30 (Roxicodone) 5 mg Q4H PRN PO 02/05/17 19:30 02/12/17 22:10 (Terese-Colace) 1 tab BID PO 02/05/17 21:00 02/25/17 08:19 (Milk Of Magnesia Liq) 30 ml Q12H PRN PO 02/05/17 19:30 02/06/17 07:59 (Senokot) 17.2 mg Q12H PRN PO 02/05/17 19:30 (Dulcolax Supp) 10 mg DAILY PRN RECTAL 02/05/17 19:30 (Lactulose Liq) 30 ml DAILY PRN PO 02/05/17 19:30 02/06/17 17:46 (Norvasc) 10 mg DAILY PO 02/06/17 09:00 Hold 02/06/17 07:57 (Coreg) 3.125 mg Q12HR PO 02/05/17 21:00 02/25/17 08:19 (Zanaflex) 4 mg TID PO 02/06/17 09:00 02/25/17 17:52 (Levemir Inj) 10 units DAILY SQ 02/06/17 09:00 02/25/17 08:43 (Morphine Inj) 1 mg Q4HR PRN IV 02/06/17 12:00 02/17/17 17:57 (Proamatine) 10 mg TID@,, PO 02/08/17 17:00 02/25/17 17:52 Miscellaneous Information Patient in critical care unit? Ass... Q361D .XX 02/08/17 23:00 (NS Flush) UNSCH PRN IVF 02/09/17 15:30 Heparin Sodium (Porcine) UNSCH PRN IV FLUSH 02/09/17 15:30 (NS 1000 ml Inj) 1,000 ml @ 0 mls/hr Q0M PRN IV 02/09/17 15:39 02/24/17 12:27 Heparin Sodium (Porcine) 8000 units 8,000 units UNSCH PRN IVF 02/09/17 15:45 Sodium Chloride 1,000 ml @ 200 mls/hr Q5H PRN IV 02/09/17 15:39 (NS 1000 ml Inj) 1,000 ml @ 0 mls/hr Q0M PRN IV 02/09/17 15:39 (Mannitol Inj) 12.5 gm UNSCH PRN IV 02/09/17 15:45 02/20/17 15:13 (Albumin 25% Inj) 25 gm UNSCH PRN IV 02/09/17 15:45 02/24/17 12:27 (NS Flush) 5 ml UNSCH PRN IV FLUSH 02/09/17 15:45 02/14/17 10:15 (Heparin Inj) UNSCH PRN .XX 02/09/17 15:45 02/24/17 12:26 (Gentamicin (Dialysis) Inj) 20 mg UNSCH PRN IV 02/09/17 15:45 02/24/17 12:27 (Zofran Inj) 4 mg UNSCH PRN IV 02/09/17 15:45 02/21/17 18:11 (Tylenol) 650 mg UNSCH PRN PO 02/09/17 15:45 (Benadryl) 25 mg UNSCH PRN PO 02/09/17 15:45 02/23/17 09:01 (Nitrostat Sl) 0.4 mg UNSCH PRN SL 02/09/17 15:45 (Catapres) 0.1 mg UNSCH PRN PO 02/09/17 15:45 02/21/17 18:36 (Gelfoam 12 Mm/7 Mm Top) 1 foam UNSCH PRN TOP 02/09/17 15:45 (Melatonin) 5 mg HS PRN PO 02/10/17 17:15 02/10/17 22:08 (Epogen Inj) 20,000 units UNSCH PRN IV 02/12/17 10:15 02/24/17 12:28 (Roxicodone) 10 mg Q4H PRN PO 02/13/17 11:15 02/25/17 17:52 (Heparin Inj) 5,000 units Q12HR SQ 02/16/17 21:00 02/25/17 08:19 (Aspirin Chew) 81 mg DAILY CHEW 02/17/17 09:00 02/25/17 08:19 (Lasix Inj) 80 mg BID IV PUSH 02/21/17 21:00 02/25/17 08:20 (Mycostatin Liq) 5 ml QID SWISH-SWAL 02/22/17 13:00 02/25/17 17:52 Allergies Allergies Coded Allergies Lisinopril (Unverified Allergy, Intermediate, Cough, 01/19/17) Exam I&O / VS 02/24/17 02/24/17 02/25/17 14:59 22:59 06:59 Intake Total 380 ml 284 ml 40 ml Output Total 1600 ml 300 ml 265 ml Balance -1220 ml -16 ml -225 ml Intake Oral 380 ml 280 ml 40 ml IV Total 4 ml Output Urine Total 600 ml 300 ml 250 ml Drainage Total 15 ml Hemodialysis 1000 ml # Bowel Movements 0 0 0 Vital Signs Date Time Temp Pulse Resp B/P Pulse Ox O2 Delivery O2 Flow Rate FiO2 02/25/17 16:55 98.1 70 18 109/53 100 02/25/17 12:34 98.4 78 18 110/54 100 02/25/17 12:34 Nasal Cannula 2.00 45 02/25/17 11:51 100 Nasal Cannula 1.00 02/25/17 08:00 98.9 84 18 144/65 99 02/25/17 04:00 98.1 80 20 154/67 99 02/25/17 04:00 Nasal Cannula 2.00 02/25/17 00:00 98.7 83 20 141/64 100 02/24/17 23:55 Nasal Cannula 2.00 02/24/17 20:21 91 02/24/17 20:00 Nasal Cannula 2.00 02/24/17 20:00 99.8 88 18 170/74 99 Objective Radiology Results Last 48 hours Impressions Thoracic Spine MRI 02/24/17 0000 Signed Impressions: Service Date/Time: Friday, February 24, 2017 18:38 - CONCLUSION: 1. Moderate epidural lipomatosis on the dorsal aspect of the thoracic spine most prominent between T4 and T9 resulting in complete effacement of the thecal sac around the cord without significant cord compression. No acute bony abnormality. Dmitriy Ramirez MD Lumbar Spine MRI 02/24/17 0000 Signed Impressions: Service Date/Time: Friday, February 24, 2017 18:38 - CONCLUSION: Normal examination for a patient of this age. Dmitriy Ramirez MD Micro and Labs Laboratory Tests Test 02/25/17 05:12 White Blood Count 6.7 Red Blood Count 3.95 Hemoglobin 8.2 Hematocrit 26.4 Mean Corpuscular Volume 66.8 Mean Corpuscular Hemoglobin 20.7 Mean Corpuscular Hemoglobin 31.0 Concent Red Cell Distribution Width 17.1 Platelet Count 388 Mean Platelet Volume 7.8 Sodium Level 138 Potassium Level 4.1 Chloride Level 96 Carbon Dioxide Level 31.1 Anion Gap 11 Blood Urea Nitrogen 46 Creatinine 5.60 Estimat Glomerular Filtration 9 Rate Random Glucose 109 Calcium Level 8.9 Nova Mccoy MD Feb 25, 2017 19:22
[2017-02-26] VITALS: BP 136/62; PULSE 72; RESP 20; TEMP 97.6; O2SAT 100
[2017-02-26 04:00] VITALS: BP 124/60; PULSE 81; RESP 18; TEMP 98.4; O2SAT 99
[2017-02-26] MEDS: MIDODRINE 5 MG TAB PO SCH ×3 (05:54→18:02)
[2017-02-26] MEDS: INSULIN ASPART SUPPLEMENTAL SCALE SQ SCH ×4 (05:55→21:49)
[2017-02-26 07:25] LABS: HEMATOCRIT 28.2 % (35.0-46.0); MEAN CELL VOLUME 68.2 FL (80.0-100.0); MEAN CORPUSCULAR HEMOGLOBIN 20.5 PG (27.0-34.0); MEAN CORPUSCULAR HGB CONC 30.1 % (32.0-36.0); PLATELET COUNT 395 TH/MM3 (150-450); RED BLOOD COUNT 4.13 MIL/MM3 (4.00-5.30); RED CELL DISTRIBUTION WIDTH 17.2 % (11.6-17.2); REVIEW FLAG FINAL
[2017-02-26 07:52] LABS: BICARBONATE 32.1 MEQ/L (21.0-32.0); POTASSIUM 4.6 MEQ/L (3.5-5.1)
[2017-02-26 08:02] VITALS: BP 128/58; PULSE 86; RESP 18; TEMP 98.7; O2SAT 99
[2017-02-26] MEDS: ASPIRIN 81 MG CHEW TAB CHEW SCH (08:28)
[2017-02-26] MEDS: FUROSEMIDE 40 MG/4 ML VIAL IV PUSH SCH ×2 (08:28→21:44)
[2017-02-26] MEDS: DOCUSATE SODIUM 50 MG/SENNA 8.6 MG TAB PO SCH ×2 (08:28→21:43)
[2017-02-26] MEDS: HEPARIN SODIUM - SQ 10,000 UNITS/ML VIAL SQ SCH ×2 (08:29→21:44)
[2017-02-26] MEDS: NYSTATIN SUSP 500,000 U/5 ML CUP SWISH-SWAL SCH ×4 (08:35→21:44)
[2017-02-26] MEDS: INSULIN DETEMIR 100 UNITS/ML VIAL SQ SCH (08:35)
[2017-02-26] MEDS: CARVEDILOL 3.125 MG TAB PO SCH ×2 (08:36→21:46)
[2017-02-26] MEDS: SODIUM CHLORIDE 0.9% FLUSH 10 ML FLUSH IV FLUSH SCH ×2 (08:46→21:44)
--- NOTE | 2017-02-26 10:52 | HHI.NPPN ---
Subjective History of Present Illness 66-year-old female with a past medical history of hypertension, diabetes mellitus, chronic kidney disease, anemia and chronic back pain, who was admitted because of abdominal pain, nausea and vomiting. I was called to see the patient because of elevated BUN and creatinine. The patient has known history of chronic kidney disease and she had acute kidney injury. Additional Remarks Patient is alert, now on HD, complaining of back pain. Review of Systems General Constitutional: Fatigue Objective Data Data 02/25/17 02/26/17 19:00 07:00 Intake Total 830 ml Output Total 350 ml 183 ml Balance -350 ml 647 ml Intake Oral 820 ml IV Total 10 ml Output Urine Total 350 ml 175 ml Stool Total 8 ml Vital Signs Date Time Temp Pulse Resp B/P Pulse Ox O2 Delivery O2 Flow Rate FiO2 02/26/17 08:02 98.7 86 18 128/58 99 02/26/17 04:00 98.4 81 18 124/60 99 02/26/17 00:00 97.6 72 20 136/62 100 02/25/17 23:53 Nasal Cannula 2.00 02/25/17 20:25 Nasal Cannula 1.00 02/25/17 20:00 70 02/25/17 20:00 97.9 70 18 160/70 100 02/25/17 20:00 Nasal Cannula 2.00 02/25/17 16:55 98.1 70 18 109/53 100 02/25/17 12:34 98.4 78 18 110/54 100 02/25/17 12:34 Nasal Cannula 2.00 45 02/25/17 11:51 100 Nasal Cannula 1.00 -: 02/26/17 0714 02/26/17 0714 Physical Exam General Appearance Remarks Mild resp. distress. Eyes Eye Exam: Pupils Equal Throat Throat Exam: Oral Mucosa [place] & Moist Neck Neck Exam: Neck Supple Pulmonary Resp Exam: Breath Sounds Equal, No Distress, Rhonchi, Decreased Bases, Diminished Breath Sounds Cardiology CV Exam: Regular, Normal Sinus Rhythm Gastrointestinal/Abdomen GI Exam: Soft, Bowel Sounds Present, Distended Extremeties Extremities Exam: Trace Edema Neurologic Neuro Exam: Alert, Awake, Oriented Psychiatric Psych Exam: Appropriate Responses Assessment/Plan Assessment Summary: RGADY/Acute Renal Failure, Hypotension, CKD Stage IV Problem List: (1) Acute kidney failure Plan: Urine out put is better with Lasix. Creatinine still elevated. Continue dialysis support as needed. Avoid nephrotoxic agents. On Lasix. to 80 mg IV Q12. Watch for signs of renal recovery. HD now, remove fluid as tolerated. (2) Diabetes mellitus (3) CHF (congestive heart failure) (4) Cholecystitis (5) Gallstones (6) Elevated LFTs (7) Anemia (8) Stage 4 chronic kidney disease Problem Qualifiers (1) Anemia: Svitlana Cook MD Feb 26, 2017 10:52
[2017-02-26] MEDS ORDERED: OXYC-392 PO (12:51)
[2017-02-26] MEDS: HEPARIN SODIUM - IV 10,000 UNITS/10 ML VIAL PRN (13:13)
[2017-02-26] MEDS: GENTAMICIN SULFATE (DIALYSIS USE ONLY) 20 MG/2 ML VIAL IV PRN (13:13)
[2017-02-26] MEDS: EPOETIN ALFA 20,000 UNITS/ML VIAL IV PRN (13:13)
--- NOTE | 2017-02-26 15:13 | HHI.PR ---
Subjective Remarks Patient reports she is feeling OK. Ricardo LE paralysis unchanged. DW IR nurse. IR planning to reevaluate drain tomorrow. Objective Vitals Vital Signs Date Time Temp Pulse Resp B/P Pulse Ox O2 Delivery O2 Flow Rate FiO2 02/26/17 08:02 98.7 86 18 128/58 99 02/26/17 04:00 98.4 81 18 124/60 99 02/26/17 00:00 97.6 72 20 136/62 100 02/25/17 23:53 Nasal Cannula 2.00 02/25/17 20:25 Nasal Cannula 1.00 02/25/17 20:00 70 02/25/17 20:00 97.9 70 18 160/70 100 02/25/17 20:00 Nasal Cannula 2.00 02/25/17 16:55 98.1 70 18 109/53 100 I/O 02/25/17 02/25/17 02/25/17 02/26/17 02/26/17 02/26/17 06:59 14:59 22:59 06:59 14:59 22:59 Intake Total 40 ml 730 ml 100 ml Output Total 265 ml 450 ml 83 ml 1500 ml Balance -225 ml 280 ml 17 ml -1500 ml Intake Oral 40 ml 720 ml 100 ml IV Total 10 ml Output Urine Total 250 ml 450 ml 75 ml Stool Total 0 ml 8 ml Drainage Total 15 ml Hemodialysis 1500 ml # Bowel Movements 0 Result Diagram: 02/26/1771302/26/17713 Objective Remarks GENERAL: Chronically ill appearing, in no apparent distress. CARDIOVASCULAR: Regular rate and rhythm without murmurs, gallops, or rubs. RESPIRATORY: Clear to auscultation. Breath sounds equal bilaterally. No wheezes , rales, or rhonchi. GASTROINTESTINAL: Abdomen soft, non-tender, nondistended. Normal active bowel sounds MUSCULOSKELETAL: Extremities without clubbing, cyanosis, or edema. NEURO: Alert & Oriented x4 to person, place, time, situation. Ricardo lower extremity paralysis. UE 4+/5 Procedures Vas-Cath placement per IR cholecystostomy tube placement A/P Problem List: (1) Cholecystitis ICD Code: K81.9 Status: Acute (2) Elevated LFTs ICD Code: R79.89 Status: Acute (3) Renal insufficiency ICD Code: N28.9 Status: Acute (4) CHF (congestive heart failure) ICD Code: I50.9 Status: Chronic (5) DM (diabetes mellitus) ICD Code: E11.9 Status: Acute Assessment and Plan 66-year-old female admitted secondary to cholecystitis. Complications of acute renal failure, anemia, CHF, pleural effusion. Now status post cholecystectomy with drain placement. Bilateral Lower Extremity Flaccidity MRI of lumbar spine, no cord compression.? ischemia per Neurology. 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 Continue pain control Continue postop wound care Monitor biliary drain output, IR to evaluate drain in AM. Acute systolic CHF Pulm Edema pleural effusion: 80 mg IV Lasix BID daily 2D ECHO, EF of 30-35%. Daily aspirin Low sodium diet Monitor pleural effusions Pulmonology following Cardiology following. Not a good candidate for invasive procedures such as revascularization. Acute on chronic kidney injury Metabolic acidosis secondary to acute renal failure Nephrology following Vas-Cath present Continue hemodialysis. Watch for renal recovery Hypotension Resolved Continue midodrine as needed Follow blood pressures Diabetes mellitus Insulin sliding scale Levemir Diabetic diet Follow blood sugars Chronic pain syndrome Insomnia Melatonin 5 mg by mouth daily at bedtime PRN for insomnia Continue as needed pain control treatments Mild protein calorie Malnutrition Calorie count ongoing Nutrition is consulted anemia of chronic disease Epogen and IV iron. Follow CBC DVT prophylaxis SCDs heparin Discharge Planning DC planning to SNF in 1-2 days. Marcel Morocho MD Feb 26, 2017 15:12
[2017-02-26 16:02] VITALS: BP 136/62; PULSE 79; RESP 20; TEMP 98.7; O2SAT 100
--- NOTE | 2017-02-26 18:47 | PD.CARD.PN ---
Subjective Subjective Remarks Doing better today/appears more active No events overnight No chest pain/SOB Objective Medications Current Medications Medications (Trade) Dose Ordered Sig/Lo Route Start Time Stop Time Status Last Admin (D50w (Vial) Inj) 50 ml UNSCH PRN IV 02/05/17 19:30 Glucagon 1 mg 1 mg UNSCH PRN OTHER 02/05/17 19:30 (NS 1000 ml Inj) 1,000 ml @ 50 mls/hr Q20H IV 02/05/17 19:16 Hold 02/06/17 04:19 (NS Flush) 2 ml UNSCH PRN IV FLUSH 02/05/17 19:30 (NS Flush) 2 ml BID IV FLUSH 02/05/17 21:00 02/26/17 08:46 (Zofran Inj) 4 mg Q6H PRN IVP 02/05/17 19:30 02/12/17 03:32 (Tylenol) 650 mg Q6H PRN PO 02/05/17 19:30 (Roxicodone) 5 mg Q4H PRN PO 02/05/17 19:30 02/12/17 22:10 (Terese-Colace) 1 tab BID PO 02/05/17 21:00 02/26/17 08:28 (Milk Of Magnesia Liq) 30 ml Q12H PRN PO 02/05/17 19:30 02/06/17 07:59 (Senokot) 17.2 mg Q12H PRN PO 02/05/17 19:30 (Dulcolax Supp) 10 mg DAILY PRN RECTAL 02/05/17 19:30 (Lactulose Liq) 30 ml DAILY PRN PO 02/05/17 19:30 02/06/17 17:46 (Norvasc) 10 mg DAILY PO 02/06/17 09:00 Hold 02/06/17 07:57 (Coreg) 3.125 mg Q12HR PO 02/05/17 21:00 02/26/17 08:36 (Zanaflex) 4 mg TID PO 02/06/17 09:00 02/26/17 18:03 (Levemir Inj) 10 units DAILY SQ 02/06/17 09:00 02/26/17 08:35 (Morphine Inj) 1 mg Q4HR PRN IV 02/06/17 12:00 02/17/17 17:57 (Proamatine) 10 mg TID@,, PO 02/08/17 17:00 02/26/17 18:02 Miscellaneous Information Patient in critical care unit? Ass... Q361D .XX 02/08/17 23:00 (NS Flush) UNSCH PRN IVF 02/09/17 15:30 Heparin Sodium (Porcine) UNSCH PRN IV FLUSH 02/09/17 15:30 (NS 1000 ml Inj) 1,000 ml @ 0 mls/hr Q0M PRN IV 02/09/17 15:39 02/24/17 12:27 Heparin Sodium (Porcine) 8000 units 8,000 units UNSCH PRN IVF 02/09/17 15:45 Sodium Chloride 1,000 ml @ 200 mls/hr Q5H PRN IV 02/09/17 15:39 (NS 1000 ml Inj) 1,000 ml @ 0 mls/hr Q0M PRN IV 02/09/17 15:39 (Mannitol Inj) 12.5 gm UNSCH PRN IV 02/09/17 15:45 02/20/17 15:13 (Albumin 25% Inj) 25 gm UNSCH PRN IV 02/09/17 15:45 02/24/17 12:27 (NS Flush) 5 ml UNSCH PRN IV FLUSH 02/09/17 15:45 02/14/17 10:15 (Heparin Inj) UNSCH PRN .XX 02/09/17 15:45 02/26/17 13:13 (Gentamicin (Dialysis) Inj) 20 mg UNSCH PRN IV 02/09/17 15:45 02/26/17 13:13 (Zofran Inj) 4 mg UNSCH PRN IV 02/09/17 15:45 02/21/17 18:11 (Tylenol) 650 mg UNSCH PRN PO 02/09/17 15:45 (Benadryl) 25 mg UNSCH PRN PO 02/09/17 15:45 02/23/17 09:01 (Nitrostat Sl) 0.4 mg UNSCH PRN SL 02/09/17 15:45 (Catapres) 0.1 mg UNSCH PRN PO 02/09/17 15:45 02/21/17 18:36 (Gelfoam 12 Mm/7 Mm Top) 1 foam UNSCH PRN TOP 02/09/17 15:45 (Melatonin) 5 mg HS PRN PO 02/10/17 17:15 02/10/17 22:08 (Epogen Inj) 20,000 units UNSCH PRN IV 02/12/17 10:15 02/26/17 13:13 (Roxicodone) 10 mg Q4H PRN PO 02/13/17 11:15 02/26/17 18:03 (Heparin Inj) 5,000 units Q12HR SQ 02/16/17 21:00 02/26/17 08:29 (Aspirin Chew) 81 mg DAILY CHEW 02/17/17 09:00 02/26/17 08:28 (Lasix Inj) 80 mg BID IV PUSH 02/21/17 21:00 02/26/17 08:28 (Mycostatin Liq) 5 ml QID SWISH-SWAL 02/22/17 13:00 02/26/17 18:03 Vital Signs / I&O Vital Signs Date Time Temp Pulse Resp B/P Pulse Ox O2 Delivery O2 Flow Rate FiO2 02/26/17 16:02 98.7 79 20 136/62 100 02/26/17 08:02 98.7 86 18 128/58 99 02/26/17 04:00 98.4 81 18 124/60 99 02/26/17 00:00 97.6 72 20 136/62 100 02/25/17 23:53 Nasal Cannula 2.00 02/25/17 20:25 Nasal Cannula 1.00 02/25/17 20:00 70 02/25/17 20:00 97.9 70 18 160/70 100 02/25/17 20:00 Nasal Cannula 2.00 I/O 02/25/17 02/25/17 02/25/17 02/26/17 02/26/17 02/26/17 06:59 14:59 22:59 06:59 14:59 22:59 Intake Total 40 ml 730 ml 100 ml 240 ml Output Total 265 ml 450 ml 83 ml 1600 ml Balance -225 ml 280 ml 17 ml -1360 ml Intake Oral 40 ml 720 ml 100 ml 240 ml IV Total 10 ml Output Urine Total 250 ml 450 ml 75 ml 100 ml Stool Total 0 ml 8 ml Drainage Total 15 ml Hemodialysis 1500 ml # Bowel Movements 0 0 Physical Exam GENERAL: NAD, alert and awake SKIN: Warm and dry. HEAD: Atraumatic. Normocephalic. EYES: Pupils equal and round. No scleral icterus. No injection or drainage. ENT: No nasal bleeding or discharge. Mucous membranes pink and moist. NECK: Trachea midline. No JVD. CARDIOVASCULAR: Regular rate and rhythm. RESPIRATORY: No accessory muscle use. Decreased breath sounds bilaterally, mild crackles GASTROINTESTINAL: Abdomen soft, non-tender, nondistended. Hepatic and splenic margins not palpable. MUSCULOSKELETAL: Extremities without clubbing, cyanosis, or edema. No obvious deformities. NEUROLOGICAL: Awake and alert. No obvious cranial nerve deficits. States she can not move her legs PSYCHIATRIC: Appropriate mood and affect; insight and judgment normal. Laboratory Laboratory Tests Test 02/26/17 07:14 White Blood Count 7.0 TH/MM3 Red Blood Count 4.13 MIL/MM3 Hemoglobin 8.5 GM/DL Hematocrit 28.2 % Mean Corpuscular Volume 68.2 FL Mean Corpuscular Hemoglobin 20.5 PG Mean Corpuscular Hemoglobin 30.1 % Concent Red Cell Distribution Width 17.2 % Platelet Count 395 TH/MM3 Mean Platelet Volume 7.5 FL Sodium Level 137 MEQ/L Potassium Level 4.6 MEQ/L Chloride Level 94 MEQ/L Carbon Dioxide Level 32.1 MEQ/L Anion Gap 11 MEQ/L Blood Urea Nitrogen 61 MG/DL Creatinine 7.34 MG/DL Estimat Glomerular Filtration 7 ML/MIN Rate Random Glucose 173 MG/DL Calcium Level 9.0 MG/DL Assessment and Plan Problem List: (1) Cholecystitis (2) Anemia (3) Acute kidney failure (4) Stage 4 chronic kidney disease (5) Diabetes mellitus (6) CHF (congestive heart failure) (7) Cardiomyopathy Assessment and Plan 1) SOB HD/fluid management per nephrology, oxygen demand decreased with fluid off from HD Down to 2L O2 Increased urine output Only 1L off on 02/24/17, but overall not needing increased oxygen as before 2) Cardiomyopathy of unknown cause, never evaluated Not the best candidate for revascularization with comorbidities and cholecystomy tube Con't with medical management for now Discussed with daughter 3) Neuro evaluation for leg weakness Problem Qualifiers (1) Anemia: Chin Hernandez DO Feb 26, 2017 18:47
[2017-02-26 20:00] VITALS: BP 178/72; PULSE 77; RESP 18; TEMP 98.1; O2SAT 100
[2017-02-27] VITALS (8 sets, daily range): BP systolic 113–149; BP diastolic 57–73; PULSE 77–89; RESP 16–20; TEMP 98.2–98.5; O2SAT 99–100
[2017-02-27] MEDS: INSULIN ASPART SUPPLEMENTAL SCALE SQ SCH ×4 (06:06→20:50)
[2017-02-27] MEDS: MIDODRINE 5 MG TAB PO SCH ×3 (06:38→17:00)
[2017-02-27] MEDS: diphenhydrAMINE HCL 25 MG CAP PO PRN (06:38)
[2017-02-27] MEDS: INSULIN DETEMIR 100 UNITS/ML VIAL SQ SCH (09:00)
[2017-02-27] MEDS: SODIUM CHLORIDE 0.9% FLUSH 10 ML FLUSH IV FLUSH SCH ×2 (09:22→20:47)
[2017-02-27] MEDS: ASPIRIN 81 MG CHEW TAB CHEW SCH (09:22)
[2017-02-27] MEDS: HEPARIN SODIUM - SQ 10,000 UNITS/ML VIAL SQ SCH ×2 (09:23→20:48)
[2017-02-27] MEDS: CARVEDILOL 3.125 MG TAB PO SCH ×2 (09:23→20:48)
[2017-02-27] MEDS: FUROSEMIDE 40 MG/4 ML VIAL IV PUSH SCH ×2 (09:23→20:48)
[2017-02-27] MEDS: DOCUSATE SODIUM 50 MG/SENNA 8.6 MG TAB PO SCH ×2 (09:23→20:48)
[2017-02-27] MEDS: NYSTATIN SUSP 500,000 U/5 ML CUP SWISH-SWAL SCH ×4 (09:24→20:50)
--- NOTE | 2017-02-27 09:49 | HHI.PR ---
Subjective Remarks Patient has no new complaints. Bilateral lower extremity paralysis persist. Urine output declined and renal function worse today. Objective Vitals Vital Signs Date Time Temp Pulse Resp B/P Pulse Ox O2 Delivery O2 Flow Rate FiO2 02/27/17 04:00 98.3 88 18 113/73 100 02/27/17 04:00 Nasal Cannula 2.00 02/27/17 00:00 Nasal Cannula 2.00 02/27/17 00:00 98.5 84 18 128/63 100 02/26/17 20:00 98.1 77 18 178/72 100 02/26/17 20:00 77 02/26/17 20:00 Nasal Cannula 2.00 02/26/17 18:00 100 Nasal Cannula 2.00 02/26/17 16:02 98.7 79 20 136/62 100 I/O 02/26/17 02/26/17 02/26/17 02/27/17 02/27/17 02/27/17 07:00 15:00 23:00 07:00 15:00 23:00 Intake Total 100 ml 240 ml 240 ml 240 ml Output Total 83 ml 1600 ml 150 ml 75 ml Balance 17 ml -1360 ml 90 ml 165 ml Intake Oral 100 ml 240 ml 240 ml 240 ml Output Urine Total 75 ml 100 ml 150 ml 75 ml Stool Total 8 ml Hemodialysis 1500 ml Bladder Scan Volume Amount 100 ml # Bowel Movements 0 Result Diagram: 02/26/1771302/26/17713 Objective Remarks GENERAL: Chronically ill appearing, in no apparent distress. CARDIOVASCULAR: Regular rate and rhythm without murmurs, gallops, or rubs. RESPIRATORY: Clear to auscultation. Breath sounds equal bilaterally. No wheezes , rales, or rhonchi. GASTROINTESTINAL: Abdomen soft, non-tender, nondistended. Normal active bowel sounds MUSCULOSKELETAL: Extremities without clubbing, cyanosis, or edema. NEURO: Alert & Oriented x4 to person, place, time, situation. Ricardo lower extremity paralysis. UE 4+/5 Procedures Vas-Cath placement per IR cholecystostomy tube placement A/P Problem List: (1) Cholecystitis ICD Code: K81.9 Status: Acute (2) Elevated LFTs ICD Code: R79.89 Status: Acute (3) Renal insufficiency ICD Code: N28.9 Status: Acute (4) CHF (congestive heart failure) ICD Code: I50.9 Status: Chronic (5) DM (diabetes mellitus) ICD Code: E11.9 Status: Acute Assessment and Plan 66-year-old female admitted secondary to cholecystitis. Complications of acute renal failure, anemia, CHF, pleural effusion. Status post cholecystectomy with drain placement. Bilateral Lower Extremity Flaccidity MRI of lumbar spine, no cord compression.? ischemia per Neurology. 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 Continue pain control Continue postop wound care Monitor biliary drain output, IR to evaluate drain. Acute systolic CHF Pulm Edema pleural effusion: 80 mg IV Lasix BID daily 2D ECHO, EF of 30-35%. Daily aspirin Low sodium diet Monitor pleural effusions Pulmonology following Cardiology following. Not a good candidate for invasive procedures such as revascularization. Acute on chronic kidney injury Metabolic acidosis secondary to acute renal failure Nephrology following Vas-Cath present Continue hemodialysis. On Lasix IV. Watch for renal recovery Hypotension Resolved Continue midodrine as needed Follow blood pressures Diabetes mellitus Insulin sliding scale Levemir Diabetic diet Follow blood sugars Chronic pain syndrome Insomnia Melatonin 5 mg by mouth daily at bedtime PRN for insomnia Continue as needed pain control treatments Mild protein calorie Malnutrition Calorie count ongoing Nutrition is consulted anemia of chronic disease Epogen and IV iron. Follow CBC DVT prophylaxis SCDs heparin Discharge Planning DC planning to SNF Marcel Morocho MD Feb 27, 2017 09:49
[2017-02-27 10:05] LABS: HEMATOCRIT 29.5 % (35.0-46.0); MEAN CELL VOLUME 68.6 FL (80.0-100.0); MEAN CORPUSCULAR HEMOGLOBIN 20.7 PG (27.0-34.0); MEAN CORPUSCULAR HGB CONC 30.2 % (32.0-36.0); PLATELET COUNT 332 TH/MM3 (150-450); RED CELL DISTRIBUTION WIDTH 17.2 % (11.6-17.2); REVIEW FLAG FINAL; WHITE BLOOD COUNT 6.9 TH/MM3 (4.0-11.0)
[2017-02-27 10:14] LABS: BICARBONATE 31.3 MEQ/L (21.0-32.0); POTASSIUM 4.2 MEQ/L (3.5-5.1)
--- NOTE | 2017-02-27 11:04 | HHI.NPPN ---
Subjective History of Present Illness 66-year-old female with a past medical history of hypertension, diabetes mellitus, chronic kidney disease, anemia and chronic back pain, who was admitted because of abdominal pain, nausea and vomiting. I was called to see the patient because of elevated BUN and creatinine. The patient has known history of chronic kidney disease and she had acute kidney injury. Additional Remarks Patient is alert, no SOB, with nasal cannula. Review of Systems General Constitutional: Fatigue Objective Data Data 02/26/17 02/27/17 19:00 07:00 Intake Total 240 ml 480 ml Output Total 1610 ml 225 ml Balance -1370 ml 255 ml Intake Oral 240 ml 480 ml Output Urine Total 100 ml 225 ml Drainage Total 10 ml Hemodialysis 1500 ml Bladder Scan Volume Amount 100 ml # Bowel Movements 0 Vital Signs Date Time Temp Pulse Resp B/P Pulse Ox O2 Delivery O2 Flow Rate FiO2 02/27/17 10:59 100 Nasal Cannula 2.00 02/27/17 08:00 98.5 89 20 126/57 100 02/27/17 04:00 98.3 88 18 113/73 100 02/27/17 04:00 Nasal Cannula 2.00 02/27/17 00:00 Nasal Cannula 2.00 02/27/17 00:00 98.5 84 18 128/63 100 02/26/17 20:00 98.1 77 18 178/72 100 02/26/17 20:00 77 02/26/17 20:00 Nasal Cannula 2.00 02/26/17 18:00 100 Nasal Cannula 2.00 02/26/17 16:02 98.7 79 20 136/62 100 -: 02/27/17 0700 02/27/17 0700 Physical Exam General Appearance Remarks Mild resp. distress. Eyes Eye Exam: Pupils Equal Throat Throat Exam: Oral Mucosa [place] & Moist Neck Neck Exam: Neck Supple Pulmonary Resp Exam: Breath Sounds Equal, No Distress, Rhonchi, Decreased Bases, Diminished Breath Sounds Cardiology CV Exam: Regular, Normal Sinus Rhythm Gastrointestinal/Abdomen GI Exam: Soft, Bowel Sounds Present, Distended Extremeties Extremities Exam: Trace Edema Neurologic Neuro Exam: Alert, Awake, Oriented Psychiatric Psych Exam: Appropriate Responses Assessment/Plan Assessment Summary: GRADY/Acute Renal Failure, Hypotension, CKD Stage IV Problem List: (1) Acute kidney failure Plan: Urine out put is decreased again, on Lasix. Creatinine still elevated. Continue dialysis support as needed. Avoid nephrotoxic agents. On Lasix. to 80 mg IV Q12. Watch for signs of renal recovery. HD done yesterday. Continue HD 3 times a week and as needed. (2) Diabetes mellitus (3) CHF (congestive heart failure) (4) Cholecystitis (5) Gallstones (6) Elevated LFTs (7) Anemia (8) Stage 4 chronic kidney disease Problem Qualifiers (1) Anemia: Svitlana Cook MD Feb 27, 2017 11:04
--- NOTE | 2017-02-27 13:03 | PD.CARD.PN ---
Subjective Subjective Remarks No events overnight Doing well overall Objective Medications Current Medications Medications (Trade) Dose Ordered Sig/Lo Route Start Time Stop Time Status Last Admin (D50w (Vial) Inj) 50 ml UNSCH PRN IV 02/05/17 19:30 Glucagon 1 mg 1 mg UNSCH PRN OTHER 02/05/17 19:30 (NS 1000 ml Inj) 1,000 ml @ 50 mls/hr Q20H IV 02/05/17 19:16 Hold 02/06/17 04:19 (NS Flush) 2 ml UNSCH PRN IV FLUSH 02/05/17 19:30 (NS Flush) 2 ml BID IV FLUSH 02/05/17 21:00 02/27/17 09:22 (Zofran Inj) 4 mg Q6H PRN IVP 02/05/17 19:30 02/12/17 03:32 (Tylenol) 650 mg Q6H PRN PO 02/05/17 19:30 (Roxicodone) 5 mg Q4H PRN PO 02/05/17 19:30 02/12/17 22:10 (Terese-Colace) 1 tab BID PO 02/05/17 21:00 02/27/17 09:23 (Milk Of Magnesia Liq) 30 ml Q12H PRN PO 02/05/17 19:30 02/06/17 07:59 (Senokot) 17.2 mg Q12H PRN PO 02/05/17 19:30 (Dulcolax Supp) 10 mg DAILY PRN RECTAL 02/05/17 19:30 (Lactulose Liq) 30 ml DAILY PRN PO 02/05/17 19:30 02/06/17 17:46 (Norvasc) 10 mg DAILY PO 02/06/17 09:00 Hold 02/06/17 07:57 (Coreg) 3.125 mg Q12HR PO 02/05/17 21:00 02/27/17 09:23 (Zanaflex) 4 mg TID PO 02/06/17 09:00 02/27/17 09:23 (Levemir Inj) 10 units DAILY SQ 02/06/17 09:00 02/27/17 09:00 (Morphine Inj) 1 mg Q4HR PRN IV 02/06/17 12:00 02/17/17 17:57 (Proamatine) 10 mg TID@,, PO 02/08/17 17:00 02/27/17 06:38 Miscellaneous Information Patient in critical care unit? Ass... Q361D .XX 02/08/17 23:00 (NS Flush) UNSCH PRN IVF 02/09/17 15:30 Heparin Sodium (Porcine) UNSCH PRN IV FLUSH 02/09/17 15:30 (NS 1000 ml Inj) 1,000 ml @ 0 mls/hr Q0M PRN IV 02/09/17 15:39 02/24/17 12:27 Heparin Sodium (Porcine) 8000 units 8,000 units UNSCH PRN IVF 02/09/17 15:45 Sodium Chloride 1,000 ml @ 200 mls/hr Q5H PRN IV 02/09/17 15:39 (NS 1000 ml Inj) 1,000 ml @ 0 mls/hr Q0M PRN IV 02/09/17 15:39 (Mannitol Inj) 12.5 gm UNSCH PRN IV 02/09/17 15:45 02/20/17 15:13 (Albumin 25% Inj) 25 gm UNSCH PRN IV 02/09/17 15:45 02/24/17 12:27 (NS Flush) 5 ml UNSCH PRN IV FLUSH 02/09/17 15:45 02/14/17 10:15 (Heparin Inj) UNSCH PRN .XX 02/09/17 15:45 02/26/17 13:13 (Gentamicin (Dialysis) Inj) 20 mg UNSCH PRN IV 02/09/17 15:45 02/26/17 13:13 (Zofran Inj) 4 mg UNSCH PRN IV 02/09/17 15:45 02/21/17 18:11 (Tylenol) 650 mg UNSCH PRN PO 02/09/17 15:45 (Benadryl) 25 mg UNSCH PRN PO 02/09/17 15:45 02/27/17 06:38 (Nitrostat Sl) 0.4 mg UNSCH PRN SL 02/09/17 15:45 (Catapres) 0.1 mg UNSCH PRN PO 02/09/17 15:45 02/21/17 18:36 (Gelfoam 12 Mm/7 Mm Top) 1 foam UNSCH PRN TOP 02/09/17 15:45 (Melatonin) 5 mg HS PRN PO 02/10/17 17:15 02/10/17 22:08 (Epogen Inj) 20,000 units UNSCH PRN IV 02/12/17 10:15 02/26/17 13:13 (Roxicodone) 10 mg Q4H PRN PO 02/13/17 11:15 02/27/17 09:24 (Heparin Inj) 5,000 units Q12HR SQ 02/16/17 21:00 02/27/17 09:23 (Aspirin Chew) 81 mg DAILY CHEW 02/17/17 09:00 02/27/17 09:22 (Lasix Inj) 80 mg BID IV PUSH 02/21/17 21:00 02/27/17 09:23 (Mycostatin Liq) 5 ml QID SWISH-SWAL 02/22/17 13:00 02/27/17 09:24 Vital Signs / I&O Vital Signs Date Time Temp Pulse Resp B/P Pulse Ox O2 Delivery O2 Flow Rate FiO2 02/27/17 10:59 100 Nasal Cannula 2.00 02/27/17 08:00 98.5 89 20 126/57 100 02/27/17 04:00 98.3 88 18 113/73 100 02/27/17 04:00 Nasal Cannula 2.00 02/27/17 00:00 Nasal Cannula 2.00 02/27/17 00:00 98.5 84 18 128/63 100 02/26/17 20:00 98.1 77 18 178/72 100 02/26/17 20:00 77 02/26/17 20:00 Nasal Cannula 2.00 02/26/17 18:00 100 Nasal Cannula 2.00 02/26/17 16:02 98.7 79 20 136/62 100 I/O 02/26/17 02/26/17 02/26/17 02/27/17 02/27/17 02/27/17 06:59 14:59 22:59 06:59 14:59 22:59 Intake Total 100 ml 240 ml 240 ml 240 ml Output Total 83 ml 1600 ml 160 ml 75 ml Balance 17 ml -1360 ml 80 ml 165 ml Intake Oral 100 ml 240 ml 240 ml 240 ml Output Urine Total 75 ml 100 ml 150 ml 75 ml Stool Total 8 ml Drainage Total 10 ml Hemodialysis 1500 ml Bladder Scan Volume Amount 100 ml # Bowel Movements 0 Physical Exam GENERAL: NAD, alert and awake SKIN: Warm and dry. HEAD: Atraumatic. Normocephalic. EYES: Pupils equal and round. No scleral icterus. No injection or drainage. ENT: No nasal bleeding or discharge. Mucous membranes pink and moist. NECK: Trachea midline. No JVD. CARDIOVASCULAR: Regular rate and rhythm. RESPIRATORY: No accessory muscle use. Decreased breath sounds bilaterally, mild crackles GASTROINTESTINAL: Abdomen soft, non-tender, nondistended. Hepatic and splenic margins not palpable. MUSCULOSKELETAL: Extremities without clubbing, cyanosis, or edema. No obvious deformities. NEUROLOGICAL: Awake and alert. No obvious cranial nerve deficits. States she can not move her legs PSYCHIATRIC: Appropriate mood and affect; insight and judgment normal. Laboratory Laboratory Tests Test 02/27/17 07:00 White Blood Count 6.9 TH/MM3 Red Blood Count 4.30 MIL/MM3 Hemoglobin 8.9 GM/DL Hematocrit 29.5 % Mean Corpuscular Volume 68.6 FL Mean Corpuscular Hemoglobin 20.7 PG Mean Corpuscular Hemoglobin 30.2 % Concent Red Cell Distribution Width 17.2 % Platelet Count 332 TH/MM3 Mean Platelet Volume 8.5 FL Sodium Level 136 MEQ/L Potassium Level 4.2 MEQ/L Chloride Level 97 MEQ/L Carbon Dioxide Level 31.3 MEQ/L Anion Gap 8 MEQ/L Blood Urea Nitrogen 39 MG/DL Creatinine 5.58 MG/DL Estimat Glomerular Filtration 9 ML/MIN Rate Random Glucose 143 MG/DL Calcium Level 9.1 MG/DL Assessment and Plan Problem List: (1) Cholecystitis (2) Anemia (3) Acute kidney failure (4) Stage 4 chronic kidney disease (5) Diabetes mellitus (6) CHF (congestive heart failure) (7) Cardiomyopathy Assessment and Plan 1) SOB HD/fluid management per nephrology, oxygen demand decreased with fluid off from HD Down to 2L O2 Increased urine output Only 1L off on 02/24/17, but overall not needing increased oxygen as before 2) Cardiomyopathy of unknown cause, never evaluated Not the best candidate for revascularization with comorbidities and cholecystomy tube Con't with medical management for now Discussed with daughter 3) Neuro evaluation for leg weakness 4) Will see PRN, call with questions Problem Qualifiers (1) Anemia: Chin Hernandez DO Feb 27, 2017 13:03
[2017-02-27] MEDS ORDERED: IOHEXOL 350 MG/ML 50 ML BTL (for RAD DIAG) ONE (18:26)
--- NOTE | 2017-02-27 18:34 | RADRPT ---
EXAM DATE/TIME: 02/27/2017 17:07 [place] COMPARISON: No previous studies available for comparison. INDICATIONS : Patient with a history of cholecystitis. MEDICAL HISTORY : HTN CHF CKD Stage IV Chronic Anemia Thalassemia SURGICAL HISTORY : Eye Surgery ENCOUNTER: Subsequent ACUITY: 1 month PAIN SCORE: 0/10 FLUORO TIME: 1.7 minutes IMAGE SERIES: 1 CONTRAST: 10 cc Omnipaque (iohexol) 350 PROCEDURE : 1. tube cholangiography The risks, benefits and alternatives to the procedure were explained and verbal and written consent w as obtained. The site was prepped in sterile fashion. Full sterile technique was used, including ca p, mask, sterile gloves and gown and a large sterile sheet. Hand hygiene and 2% chlorhexidine and/or betadine/alcohol prep was utilized per protocol for cutaneous antisepsis. The skin and subcutaneous tissues were infiltrated with local anesthetic solution. A under direct fluoroscopic observation, the patient's cholecystostomy tube was injected. The contras t fills a distended gallbladder containing irregular debris with areas of wall adherent density which may be adherent debris or mass/polyp. Despite significant distention of the gallbladder lumen, the c ystic duct is not visualized. CONCLUSION: Grossly abnormal gallbladder appearance. The cystic duct does not appear to be patent . Ney Lutz MD on February 27, 2017 at 18:31 Board Certified Radiologist. This report was verified electronically.
[2017-02-28] VITALS (8 sets, daily range): BP systolic 123–149; BP diastolic 60–65; PULSE 79–88; RESP 16–20; TEMP 97.6–99.3; O2SAT 94–99
[2017-02-28] MEDS: MIDODRINE 5 MG TAB PO SCH ×3 (06:08→17:24)
[2017-02-28] MEDS: INSULIN ASPART SUPPLEMENTAL SCALE SQ SCH ×4 (07:00→21:05)
[2017-02-28 07:37] LABS: BICARBONATE 31.4 MEQ/L (21.0-32.0); POTASSIUM 4.6 MEQ/L (3.5-5.1)
[2017-02-28] MEDS: HEPARIN SODIUM - SQ 10,000 UNITS/ML VIAL SQ SCH ×2 (09:00→12:46)
--- NOTE | 2017-02-28 10:37 | HHI.PR ---
Subjective Remarks Patient seen during hemodialysis. She has no complaints. States she is feeling okay. No worsening abdominal pain. No nausea or vomiting. Objective Vitals Vital Signs Date Time Temp Pulse Resp B/P Pulse Ox O2 Delivery O2 Flow Rate FiO2 02/28/17 04:00 99.3 87 16 129/60 99 02/28/17 04:00 Nasal Cannula 2.00 02/28/17 00:00 98.3 87 16 129/60 99 02/28/17 00:00 Nasal Cannula 2.00 02/27/17 20:00 84 02/27/17 20:00 98.3 80 16 146/70 99 02/27/17 20:00 Nasal Cannula 2.00 02/27/17 18:28 99 Nasal Cannula 2.00 02/27/17 18:00 99 Nasal Cannula 2.00 02/27/17 16:00 98.2 77 20 149/68 100 02/27/17 15:10 99 Nasal Cannula 4.00 02/27/17 14:55 20 02/27/17 12:00 98.5 78 20 123/61 100 02/27/17 10:59 100 Nasal Cannula 2.00 I/O 02/27/17 02/27/17 02/27/17 02/28/17 02/28/17 02/28/17 07:00 15:00 23:00 07:00 15:00 23:00 Intake Total 240 ml 480 ml 120 ml Output Total 75 ml 200 ml 250 ml Balance 165 ml 280 ml 120 ml -250 ml Intake Oral 240 ml 480 ml 120 ml Output Urine Total 75 ml 200 ml 250 ml # Bowel Movements 0 Result Diagram: 02/27/17 0700 02/28/17 0614 Objective Remarks GENERAL: Chronically ill appearing, in no apparent distress. CARDIOVASCULAR: Regular rate and rhythm without murmurs, gallops, or rubs. RESPIRATORY: Clear to auscultation. Breath sounds equal bilaterally. No wheezes , rales, or rhonchi. GASTROINTESTINAL: Abdomen soft, non-tender, nondistended. Normal active bowel sounds MUSCULOSKELETAL: Extremities without clubbing, cyanosis, or edema. NEURO: Alert & Oriented x4 to person, place, time, situation. Ricardo lower extremity paralysis. UE 4+/5 Procedures Vas-Cath placement per IR cholecystostomy tube placement A/P Problem List: (1) Cholecystitis ICD Code: K81.9 Status: Acute (2) Elevated LFTs ICD Code: R79.89 Status: Acute (3) Renal insufficiency ICD Code: N28.9 Status: Acute (4) CHF (congestive heart failure) ICD Code: I50.9 Status: Chronic (5) DM (diabetes mellitus) ICD Code: E11.9 Status: Acute Assessment and Plan 66-year-old female admitted secondary to cholecystitis. Status post cholecystostomy tube placement by IR. Complicated course by acute renal failure , anemia, CHF, pleural effusion. Acute cholecystitis Status post cholecystostomy tube placement by IR Now off Zosyn All cultures neg. Continue pain control Continue postop wound care Monitor biliary drain output, IR following. Post surgical candidate. General surgery signed off. Bilateral Lower Extremity paralysis MRI of lumbar spine, no cord compression.? ischemia per Neurology. Will need adjunct faculty for medical terminology care Neurology following Follow clinically Monitor for any progression Acute systolic CHF Pulm Edema pleural effusion: 80 mg IV Lasix BID daily 2D ECHO, EF of 30-35%. Daily aspirin Low sodium diet Monitor pleural effusions Pulmonology following Cardiology following. Not a good candidate for invasive procedures such as revascularization. Acute on chronic renal failure Metabolic acidosis secondary to acute renal failure Nephrology following Vas-Cath present Continue hemodialysis. On Lasix IV. Watch for renal recovery Hypotension Resolved Continue midodrine as needed Follow blood pressures Diabetes mellitus Insulin sliding scale Levemir Diabetic diet Follow blood sugars Chronic pain syndrome Insomnia Melatonin 5 mg by mouth daily at bedtime PRN for insomnia Continue as needed pain control treatments Mild protein calorie Malnutrition Calorie count ongoing Nutrition is consulted anemia of chronic disease Epogen and IV iron. Follow CBC DVT prophylaxis SCDs heparin Discharge Planning Patient will need SNF placement when clinically stable. Will need outpatient dialysis arrangement if kidneys do not cover. Will need outpatient follow up with IR and general surgery Marcel Morocho MD Feb 28, 2017 10:37
--- NOTE | 2017-02-28 11:11 | HHI.NPPN ---
Subjective History of Present Illness 66-year-old female with a past medical history of hypertension, diabetes mellitus, chronic kidney disease, anemia and chronic back pain, who was admitted because of abdominal pain, nausea and vomiting. I was called to see the patient because of elevated BUN and creatinine. The patient has known history of chronic kidney disease and she had acute kidney injury. Additional Remarks Patient is alert, no SOB, with nasal cannula, seen during HD. Review of Systems General Constitutional: Fatigue Objective Data Data 02/27/17 02/28/17 19:00 07:00 Intake Total 480 ml 120 ml Output Total 200 ml 250 ml Balance 280 ml -130 ml Intake Oral 480 ml 120 ml Output Urine Total 200 ml 250 ml # Bowel Movements 0 Vital Signs Date Time Temp Pulse Resp B/P Pulse Ox O2 Delivery O2 Flow Rate FiO2 02/28/17 04:00 99.3 87 16 129/60 99 02/28/17 04:00 Nasal Cannula 2.00 02/28/17 00:00 98.3 87 16 129/60 99 02/28/17 00:00 Nasal Cannula 2.00 02/27/17 20:00 84 02/27/17 20:00 98.3 80 16 146/70 99 02/27/17 20:00 Nasal Cannula 2.00 02/27/17 18:28 99 Nasal Cannula 2.00 02/27/17 18:00 99 Nasal Cannula 2.00 02/27/17 16:00 98.2 77 20 149/68 100 02/27/17 15:10 99 Nasal Cannula 4.00 02/27/17 14:55 20 02/27/17 12:00 98.5 78 20 123/61 100 -: 02/27/17 0700 02/28/17 0614 Physical Exam General Appearance Remarks Mild resp. distress. Eyes Eye Exam: Pupils Equal Throat Throat Exam: Oral Mucosa [place] & Moist Neck Neck Exam: Neck Supple Pulmonary Resp Exam: Breath Sounds Equal, No Distress, Rhonchi, Decreased Bases, Diminished Breath Sounds Cardiology CV Exam: Regular, Normal Sinus Rhythm Gastrointestinal/Abdomen GI Exam: Soft, Bowel Sounds Present, Distended Extremeties Extremities Exam: Trace Edema Neurologic Neuro Exam: Alert, Awake, Oriented Psychiatric Psych Exam: Appropriate Responses Assessment/Plan Assessment Summary: GRADY/Acute Renal Failure, Hypotension, CKD Stage IV Problem List: (1) Acute kidney failure Plan: Urine out put is decreased again, on Lasix. Creatinine still elevated. Continue dialysis support as needed. Avoid nephrotoxic agents. On Lasix. to 80 mg IV Q12. Watch for signs of renal recovery. HD now, not removing much fluid as BP is low and she is passing urine. Follow the BMP and HD as needed. (2) Diabetes mellitus (3) CHF (congestive heart failure) (4) Cholecystitis (5) Gallstones (6) Elevated LFTs (7) Anemia (8) Stage 4 chronic kidney disease Problem Qualifiers (1) Anemia: Svitlana Cook MD Feb 28, 2017 11:11
[2017-02-28] MEDS: HEPARIN SODIUM - IV 10,000 UNITS/10 ML VIAL PRN (11:12)
[2017-02-28] MEDS: GENTAMICIN SULFATE (DIALYSIS USE ONLY) 20 MG/2 ML VIAL IV PRN (11:12)
[2017-02-28] MEDS: SODIUM CHLOR 0.9% 1000 ML INJ 1,000 ML IV PRN (11:13)
[2017-02-28] MEDS: EPOETIN ALFA 20,000 UNITS/ML VIAL IV PRN (11:13)
[2017-02-28] MEDS: FUROSEMIDE 40 MG/4 ML VIAL IV PUSH SCH ×2 (12:45→21:06)
[2017-02-28] MEDS: NYSTATIN SUSP 500,000 U/5 ML CUP SWISH-SWAL SCH ×4 (12:46→21:05)
[2017-02-28] MEDS: CARVEDILOL 3.125 MG TAB PO SCH ×2 (12:46→21:07)
[2017-02-28] MEDS: DOCUSATE SODIUM 50 MG/SENNA 8.6 MG TAB PO SCH ×2 (12:46→21:06)
[2017-02-28] MEDS: ASPIRIN 81 MG CHEW TAB CHEW SCH (12:46)
[2017-02-28] MEDS: SODIUM CHLORIDE 0.9% FLUSH 10 ML FLUSH IV FLUSH SCH ×2 (12:47→21:06)
[2017-02-28] MEDS: INSULIN DETEMIR 100 UNITS/ML VIAL SQ SCH (12:53)
[2017-03-01] VITALS (9 sets, daily range): BP systolic 117–142; BP diastolic 56–64; PULSE 71–87; RESP 20; TEMP 97.4–99.2; O2SAT 94–100
[2017-03-01] MEDS: MIDODRINE 5 MG TAB PO SCH ×3 (05:58→16:56)
[2017-03-01] MEDS: INSULIN ASPART SUPPLEMENTAL SCALE SQ SCH ×4 (05:58→21:47)
[2017-03-01 09:57] LABS: HEMATOCRIT 29.7 % (35.0-46.0); MEAN CELL VOLUME 68.2 FL (80.0-100.0); MEAN CORPUSCULAR HGB CONC 30.8 % (32.0-36.0); PLATELET COUNT 367 TH/MM3 (150-450); RED BLOOD COUNT 4.35 MIL/MM3 (4.00-5.30); RED CELL DISTRIBUTION WIDTH 18.1 % (11.6-17.2); REVIEW FLAG FINAL; WHITE BLOOD COUNT 9.1 TH/MM3 (4.0-11.0)
[2017-03-01 10:11] LABS: BICARBONATE 30.7 MEQ/L (21.0-32.0); POTASSIUM 4.4 MEQ/L (3.5-5.1)
[2017-03-01] MEDS: CARVEDILOL 3.125 MG TAB PO SCH ×2 (10:26→21:12)
[2017-03-01] MEDS: HEPARIN SODIUM - SQ 10,000 UNITS/ML VIAL SQ SCH ×2 (10:26→21:12)
[2017-03-01] MEDS: ASPIRIN 81 MG CHEW TAB CHEW SCH (10:27)
[2017-03-01] MEDS: DOCUSATE SODIUM 50 MG/SENNA 8.6 MG TAB PO SCH ×2 (10:27→21:12)
[2017-03-01] MEDS: SODIUM CHLORIDE 0.9% FLUSH 10 ML FLUSH IV FLUSH SCH ×2 (10:27→21:12)
[2017-03-01] MEDS: FUROSEMIDE 40 MG/4 ML VIAL IV PUSH SCH ×2 (10:27→21:13)
[2017-03-01] MEDS: NYSTATIN SUSP 500,000 U/5 ML CUP SWISH-SWAL SCH ×4 (10:28→21:12)
[2017-03-01] MEDS: INSULIN DETEMIR 100 UNITS/ML VIAL SQ SCH (10:29)
--- NOTE | 2017-03-01 11:05 | HHI.NPPN ---
Subjective History of Present Illness 66-year-old female with a past medical history of hypertension, diabetes mellitus, chronic kidney disease, anemia and chronic back pain, who was admitted because of abdominal pain, nausea and vomiting. I was called to see the patient because of elevated BUN and creatinine. The patient has known history of chronic kidney disease and she had acute kidney injury. Additional Remarks Patient is alert, no SOB, with nasal cannula, clinically same. Review of Systems General Constitutional: Fatigue Objective Data Data 02/28/17 03/01/17 19:00 07:00 Intake Total 480 ml 480 ml Output Total 250 ml 50 ml Balance 230 ml 430 ml Intake Oral 480 ml 480 ml Output Urine Total 200 ml Drainage Total 50 ml 50 ml # Bowel Movements 0 Vital Signs Date Time Temp Pulse Resp B/P Pulse Ox O2 Delivery O2 Flow Rate FiO2 03/01/17 08:47 98.1 78 138/62 100 03/01/17 04:00 99.2 87 20 127/61 94 03/01/17 04:00 Nasal Cannula 2.00 03/01/17 00:00 97.4 80 20 132/64 96 03/01/17 00:00 Nasal Cannula 2.00 02/28/17 20:00 Nasal Cannula 2.00 02/28/17 20:00 82 02/28/17 20:00 97.6 79 20 131/60 96 02/28/17 16:00 98.3 85 20 133/63 94 02/28/17 16:00 Nasal Cannula 2.00 02/28/17 15:00 86 02/28/17 14:24 Nasal Cannula 2.00 02/28/17 12:00 Nasal Cannula 2.00 02/28/17 12:00 98.5 83 20 123/61 95 -: 03/01/17 0908 03/01/17 0908 Physical Exam General Appearance Remarks Mild resp. distress. Eyes Eye Exam: Pupils Equal Throat Throat Exam: Oral Mucosa [place] & Moist Neck Neck Exam: Neck Supple Pulmonary Resp Exam: Breath Sounds Equal, No Distress, Rhonchi, Decreased Bases, Diminished Breath Sounds Cardiology CV Exam: Regular, Normal Sinus Rhythm Gastrointestinal/Abdomen GI Exam: Soft, Bowel Sounds Present, Distended Extremeties Extremities Exam: Trace Edema Neurologic Neuro Exam: Alert, Awake, Oriented Psychiatric Psych Exam: Appropriate Responses Assessment/Plan Assessment Summary: GRADY/Acute Renal Failure, Hypotension, CKD Stage IV Problem List: (1) Acute kidney failure Plan: Urine out put is decreased again, on Lasix. Creatinine still elevated. Continue dialysis support as needed. Avoid nephrotoxic agents. On Lasix. to 80 mg IV Q12. Watch for signs of renal recovery. HD done yesterday. Urine out put is marginal. HD as needed, D/C Cisneros's catheter. (2) Diabetes mellitus (3) CHF (congestive heart failure) (4) Cholecystitis (5) Gallstones (6) Elevated LFTs (7) Anemia (8) Stage 4 chronic kidney disease Problem Qualifiers (1) Anemia: Svitlana Cook MD Mar 01, 2017 11:05
--- NOTE | 2017-03-01 11:51 | HHI.PR ---
Subjective Remarks No acute events overnight. Afebrile, vital signs stable. Patient wishes to get up out of bed to chair today. She has no other complaints at this time. Denies nausea/vomiting. Minimal urine output. Objective Vitals Vital Signs Date Time Temp Pulse Resp B/P Pulse Ox O2 Delivery O2 Flow Rate FiO2 03/01/17 08:47 98.1 78 138/62 100 03/01/17 04:00 99.2 87 20 127/61 94 03/01/17 04:00 Nasal Cannula 2.00 03/01/17 00:00 97.4 80 20 132/64 96 03/01/17 00:00 Nasal Cannula 2.00 02/28/17 20:00 Nasal Cannula 2.00 02/28/17 20:00 82 02/28/17 20:00 97.6 79 20 131/60 96 02/28/17 16:00 98.3 85 20 133/63 94 02/28/17 16:00 Nasal Cannula 2.00 02/28/17 15:00 86 02/28/17 14:24 Nasal Cannula 2.00 02/28/17 12:00 Nasal Cannula 2.00 02/28/17 12:00 98.5 83 20 123/61 95 I/O 02/28/17 02/28/17 02/28/17 03/01/17 03/01/17 03/01/17 07:00 15:00 23:00 07:00 15:00 23:00 Intake Total 480 ml 480 ml Output Total 250 ml 250 ml 50 ml Balance -250 ml 230 ml 430 ml Intake Oral 480 ml 480 ml Output Urine Total 250 ml 200 ml Drainage Total 50 ml 50 ml # Bowel Movements 0 Result Diagram: 03/01/17 0908 03/01/17 0908 Objective Remarks GENERAL: Chronically ill appearing, in no apparent distress. CARDIOVASCULAR: Regular rate and rhythm without murmurs, gallops, or rubs. RESPIRATORY: Clear to auscultation. Breath sounds equal bilaterally. No wheezes , rales, or rhonchi. GASTROINTESTINAL: Abdomen soft, non-tender, nondistended. Normal active bowel sounds MUSCULOSKELETAL: Extremities without clubbing, cyanosis, or edema. NEURO: Alert & Oriented x4 to person, place, time, situation. Ricardo lower extremity paralysis. UE 4+/5 Procedures Vas-Cath placement per IR cholecystostomy tube placement A/P Problem List: (1) Cholecystitis ICD Code: K81.9 Status: Acute (2) Elevated LFTs ICD Code: R79.89 Status: Acute (3) Renal insufficiency ICD Code: N28.9 Status: Acute (4) CHF (congestive heart failure) ICD Code: I50.9 Status: Chronic (5) DM (diabetes mellitus) ICD Code: E11.9 Status: Acute Assessment and Plan 66-year-old female admitted secondary to cholecystitis. Status post cholecystostomy tube placement by IR. Complicated course by acute renal failure , anemia, CHF, pleural effusion. Acute cholecystitis Status post cholecystostomy tube placement by IR Now off Zosyn All cultures neg. Continue pain control Continue postop wound care Monitor biliary drain output, IR following. Post surgical candidate. General surgery signed off. Bilateral Lower Extremity paralysis MRI of lumbar spine, no cord compression.? ischemia per Neurology. Will need joint special operations care Neurology following Follow clinically Monitor for any progression Acute systolic CHF Pulm Edema pleural effusion: 80 mg IV Lasix BID daily 2D ECHO, EF of 30-35%. Daily aspirin Low sodium diet Monitor pleural effusions Pulmonology following Cardiology following. Not a good candidate for invasive procedures such as revascularization. Acute on chronic renal failure Metabolic acidosis secondary to acute renal failure Nephrology following Vas-Cath present Continue hemodialysis. On Lasix IV. Watch for renal recovery Minimal urine output Hypotension Resolved Continue midodrine as needed Follow blood pressures Diabetes mellitus Insulin sliding scale Levemir Diabetic diet Follow blood sugars Chronic pain syndrome Insomnia Melatonin 5 mg by mouth daily at bedtime PRN for insomnia Continue as needed pain control treatments Mild protein calorie Malnutrition Nutrition is consulted anemia of chronic disease Epogen and IV iron. Follow CBC DVT prophylaxis SCDs heparin Discharge Planning Patient will need SNF placement when clinically stable. Will need outpatient dialysis arrangement if kidneys do not cover. Will need outpatient follow up with IR and general surgery Fatmata Vega MD R3 Mar 01, 2017 11:51
[2017-03-01] MEDS ORDERED: ALTEPLASE RECOMBINANT 2 MG VIAL INTRACATH ONE (12:00)
[2017-03-01] MEDS: MELATONIN 5 MG TAB PO PRN (21:12)
[2017-03-02] VITALS (8 sets, daily range): BP systolic 110–174; BP diastolic 56–82; PULSE 69–90; RESP 16–20; TEMP 98–98.5; O2SAT 98–100
[2017-03-02] MEDS: INSULIN ASPART SUPPLEMENTAL SCALE SQ SCH ×4 (06:15→20:38)
[2017-03-02] MEDS: MIDODRINE 5 MG TAB PO SCH ×3 (06:15→16:47)
[2017-03-02] MEDS: INSULIN DETEMIR 100 UNITS/ML VIAL SQ SCH (09:00)
[2017-03-02] MEDS: SODIUM CHLORIDE 0.9% FLUSH 10 ML FLUSH IV FLUSH SCH ×2 (09:07→20:38)
[2017-03-02] MEDS: HEPARIN SODIUM - SQ 10,000 UNITS/ML VIAL SQ SCH ×2 (09:09→20:38)
[2017-03-02] MEDS: ASPIRIN 81 MG CHEW TAB CHEW SCH (09:09)
[2017-03-02] MEDS: DOCUSATE SODIUM 50 MG/SENNA 8.6 MG TAB PO SCH ×2 (09:09→20:39)
[2017-03-02] MEDS: CARVEDILOL 3.125 MG TAB PO SCH ×2 (09:09→20:38)
[2017-03-02] MEDS: FUROSEMIDE 40 MG/4 ML VIAL IV PUSH SCH ×2 (09:09→20:38)
[2017-03-02] MEDS: NYSTATIN SUSP 500,000 U/5 ML CUP SWISH-SWAL SCH ×4 (09:25→20:38)
--- NOTE | 2017-03-02 14:55 | HHI.PR ---
Subjective Remarks Follow-up for multiple medical conditions listed in assessment and plan During the interview patient seemed to not want to speak with me. She is not very talkative. Her son is at the bedside during the interview. Patient denies any shortness of breathing. d/w patient's nurses stated that patient will not let her wean off oxygen even though she is 100%. I d/w patient regards to that to let her know why she has to be wean off of oxygen especially of oxygen is not needed. She looked at me and did not give me a response back. In terms of walking I asked patient that she ambulate for hospitalization. She was upset that I asked this and stated that everyone should know this already. She stated that she was amply before hospitalization and wants to know why she cannot amply. She stated that no one had addressed this yet. Medical records reviewed and this was addressed. Patient also stated that she wants a new physical therapist because her current physical therapist talks a lot. Otherwise she has no complaints. Patient denies any pain. Objective Vitals Vital Signs Date Time Temp Pulse Resp B/P Pulse Ox O2 Delivery O2 Flow Rate FiO2 03/02/17 12:59 100 Nasal Cannula 3.00 03/02/17 12:00 98.0 80 18 132/60 100 03/02/17 12:00 Nasal Cannula 2.00 03/02/17 08:00 Nasal Cannula 2.00 03/02/17 08:00 98.2 90 20 145/67 100 03/02/17 04:00 Nasal Cannula 2.00 03/02/17 04:00 98.5 79 20 110/56 100 03/02/17 00:00 Nasal Cannula 2.00 03/02/17 00:00 98.5 78 20 144/79 100 03/01/17 21:44 100 Nasal Cannula 2.00 03/01/17 20:34 71 03/01/17 20:00 Nasal Cannula 2.00 03/01/17 20:00 98.2 75 20 142/58 100 03/01/17 18:14 2.00 03/01/17 17:20 98.0 76 117/57 99 03/01/17 16:03 Nasal Cannula 2.00 I/O 03/01/17 03/01/17 03/01/17 03/02/17 03/02/17 03/02/17 06:59 14:59 22:59 06:59 14:59 22:59 Intake Total 480 ml 240 ml 100 ml Output Total 50 ml 0 ml 25 ml Balance 430 ml 240 ml 75 ml Intake Oral 480 ml 240 ml 100 ml Output Urine Total 0 ml Drainage Total 50 ml 25 ml Bladder Scan Volume Amount 46 ml 70 ml 78 ml # Voids 0 0 # Bowel Movements 0 Result Diagram: 03/01/1790703/01/17907 Objective Remarks GENERAL: Patient is no acute distress. CARDIOVASCULAR: Regular rate and rhythm without murmurs, gallops, or rubs. RESPIRATORY: Clear to auscultation. Breath sounds equal bilaterally. No wheezes , rales, or rhonchi. GASTROINTESTINAL: Abdomen soft, non-tender, nondistended. Normal active bowel sounds MUSCULOSKELETAL: Extremities without clubbing, cyanosis, or edema. NEURO: Alert & Oriented x4 to person, place, time, situation. Ricardo lower extremity paralysis. She will not move her lower extremity. UE 4+/5 Procedures Vas-Cath placement per IR cholecystostomy tube placement Medications and IVs Current Medications Ondansetron HCl (Zofran Inj) 4 mg ONCE ONCE IV PUSH Last administered on 16:37; Start 02/05/17 at 16:30; Stop 02/05/17 at 16:31; Status DC Morphine Sulfate 4 mg 4 mg ONCE ONCE IV PUSH Last administered on 02/05/17 17 :10; Start 02/05/17 at 17:00; Stop 02/05/17 at 17:01; Status DC Sodium Chloride 500 ml @ 500 mls/hr BOLUS ONCE IV Last administered on 17:10; Start 02/05/17 at 17:00; Stop 02/05/17 at 17:59; Status DC Piperacillin Sod/ Tazobactam Sod (Zosyn 3.375 Gm Premix) 50 ml @ 100 mls/hr ONCE ONCE IV Last administered on 02/05/17 18:52; Start 02/05/17 at 18:45; Stop 02/05/17 at 19:14; Status DC Morphine Sulfate (Morphine Inj) 2 mg ONCE ONCE IV PUSH Last administered on 19:00; Start 02/05/17 at 19:00; Stop 02/05/17 at 19:01; Status DC Dextrose (D50w (Vial) Inj) 50 ml UNSCH PRN IV HYPOGLYCEMIA-SEE COMMENTS; Start 02/05/17 at 19:30 Glucagon (Glucagon Inj) 1 mg UNSCH PRN OTHER HYPOGLYCEMIA-SEE COMMENTS; Start 02/05/17 at 19:30 Insulin Aspart 1 1 ACHS SLIDING SCALE SQ Last administered on 03/02/17 12:24 ; Start 02/05/17 at 21:00 Piperacillin Sod/ Tazobactam Sod 50 ml @ 100 mls/hr Q6H IV Last administered on 02/09/17 06:01; Start 02/06/17 at 00:00; Stop 02/09/17 at 16:32; Status DC Sodium Chloride (NS 1000 ml Inj) 1,000 ml @ 50 mls/hr Q20H IV Last administered on 02/06/17 04:19; Start 02/05/17 at 19:16; Status Hold Sodium Chloride (NS Flush) 2 ml UNSCH PRN IV FLUSH FLUSH AFTER USING IV ACCESS ; Start 02/05/17 at 19:30 Sodium Chloride (NS Flush) 2 ml BID IV FLUSH Last administered on 03/02/17 09: 07; Start 02/05/17 at 21:00 Ondansetron HCl (Zofran Inj) 4 mg Q6H PRN IVP NAUSEA OR VOMITING Last administered on 02/12/17 03:32; Start 02/05/17 at 19:30 Acetaminophen (Tylenol) 650 mg Q6H PRN PO FEVER; Start 02/05/17 at 19:30 Morphine Sulfate (Morphine Inj) 2 mg Q3H PRN IV Pain 6-10 Last administered on 02/06/17 07:59; Start 02/05/17 at 19:30; Stop 02/06/17 at 11:21; Status DC Oxycodone HCl (Roxicodone) 5 mg Q4H PRN PO PAIN SCALE 3 TO 5 Last administered on 02/12/17 22:10; Start 02/05/17 at 19:30 Senna/Docusate Sodium (Terese-Colace) 1 tab BID PO Last administered on 09:09; Start 02/05/17 at 21:00 Magnesium Hydroxide (Milk Of Magnesia Liq) 30 ml Q12H PRN PO MILD - MODERATE CONSTIPATION Last administered on 02/06/17 07:59; Start 02/05/17 at 19:30 Sennosides (Senokot) 17.2 mg Q12H PRN PO MODERATE - SEVERE CONSTIPATION; Start 02/05/17 at 19:30 Bisacodyl (Dulcolax Supp) 10 mg DAILY PRN RECTAL SEVERE CONSTIPATION; Start at 19:30 Lactulose (Lactulose Liq) 30 ml DAILY PRN PO SEVERE CONSITIPATION Last administered on 02/06/17 17:46; Start 02/05/17 at 19:30 Amlodipine Besylate (Norvasc) 10 mg DAILY PO Last administered on 02/06/17 07: 57; Start 02/06/17 at 09:00; Status Hold Carvedilol (Coreg) 3.125 mg Q12HR PO Last administered on 03/02/17 09:09; Start 02/05/17 at 21:00 Tizanidine HCl (Zanaflex) 4 mg TID PO Last administered on 03/02/17 12:10; Start 02/06/17 at 09:00 Insulin Detemir (Levemir Inj) 20 units DAILY SQ ; Start 02/06/17 at 09:00; Stop 02/06/17 at 09:00; Status DC Insulin Detemir (Levemir Inj) 10 units DAILY SQ Last administered on 03/02/17 09:00; Start 02/06/17 at 09:00 Promethazine HCl (Phenergan) 25 mg ONCE ONCE PO Last administered on 07:04; Start 02/06/17 at 07:00; Stop 02/06/17 at 07:01; Status DC Furosemide (Lasix Inj) 40 mg ONCE ONCE IV PUSH Last administered on 02/06/17 12:47; Start 02/06/17 at 11:00; Stop 02/06/17 at 11:01; Status DC Sodium Bicarbonate (Sodium Bicarbonate 8.4% Inj) 50 meq ONCE ONCE IV PUSH Last administered on 02/06/17 12:48; Start 02/06/17 at 12:00; Stop 02/06/17 at 12:01; Status DC Morphine Sulfate (Morphine Inj) 1 mg Q4HR PRN IV BREAKTHROUGH PAIN Last administered on 02/17/17 17:57; Start 02/06/17 at 12:00 Fentanyl Citrate (fentaNYL INJ) 250 mcg STK-MED ONCE .ROUTE Last administered on 02/06/17 15:18; Start 02/06/17 at 15:18; Stop 02/06/17 at 15:19; Status DC Iohexol (Omnipaque 350 Inj) 8 ml STK-MED ONCE .XX Last administered on 16:50; Start 02/06/17 at 16:50; Stop 02/06/17 at 16:51; Status DC Ketorolac Tromethamine 15 mg 15 mg ONCE ONCE IV PUSH ; Start 02/07/17 at 04:45 ; Stop 02/07/17 at 04:46; Status DC Sodium Chloride 1,000 ml @ 84 mls/hr [id number] IV Last administered on 15:00; Start 02/07/17 at 15:00; Stop 02/07/17 at 19:40; Status DC Sodium Bicarbonate 150 meq/Dextrose 1,150 ml @ 150 mls/hr Q7H40M IV Last administered on 02/09/17 13:14; Start 02/07/17 at 19:45; Stop 02/09/17 at 15:39 ; Status DC Bumetanide (Bumex Inj) 100 ml @ 4 mls/hr CONTINUOUS IV Last administered on 13:09; Start 02/08/17 at 13:00; Stop 02/09/17 at 15:39; Status DC Midodrine (Proamatine) 10 mg TID@07,12,17 PO Last administered on 03/02/17 12: 10; Start 02/08/17 at 17:00 Miscellaneous Information Patient in critical care unit? Ass... [id number] .XX ; Start 02/08/17 at 23:00 Chlorhexidine Gluconate (Chlorhexidine 2% Cloth) 3 pack DAILY@04 TOPICAL Last administered on 02/11/17 04:34; Start 02/09/17 at 04:00; Stop 02/13/17 at 04:01 ; Status DC Chlorhexidine Gluconate (Chlorhexidine 2% Cloth) 3 pack UNSCH PRN TOPICAL HYGIENIC CARE; Start 02/08/17 at 23:00; Stop 02/13/17 at 22:56; Status DC Heparin Sodium (Porcine) (*HEPARIN INJ Periprocedural ONLY) 10,000 units STK- MED ONCE .ROUTE Last administered on 02/09/17 15:10; Start 02/09/17 at 13:51; Stop 02/09/17 at 13:52; Status DC Sodium Chloride (NS Flush) UNSCH PRN IVF SEE PROTOCOL; Start 02/09/17 at 15:30 Heparin Sodium (Porcine) UNSCH PRN IV FLUSH SEE PROTOCOL; Start 02/09/17 at 15 :30 Sodium Chloride (NS 1000 ml Inj) 1,000 ml @ 0 mls/hr Q0M PRN IV For Prime & Rinse Back Last administered on 02/28/17 11:13; Start 02/09/17 at 15:39 Heparin Sodium (Porcine) 8000 units 8,000 units UNSCH PRN IVF WITH DIALYSIS; Start 02/09/17 at 15:45 Sodium Chloride 1,000 ml @ 200 mls/hr Q5H PRN IV WITH DIALYSIS; Start 02/09/17 at 15:39 Sodium Chloride (NS 1000 ml Inj) 1,000 ml @ 0 mls/hr Q0M PRN IV WITH DIALYSIS; Start 02/09/17 at 15:39 Mannitol (Mannitol Inj) 12.5 gm UNSCH PRN IV WITH DIALYSIS Last administered on 02/20/17 15:13; Start 02/09/17 at 15:45 Albumin Human (Albumin 25% Inj) 25 gm UNSCH PRN IV WITH DIALYSIS Last administered on 02/24/17 12:27; Start 02/09/17 at 15:45 Sodium Chloride (NS Flush) 5 ml UNSCH PRN IV FLUSH WITH DIALYSIS Last administered on 02/14/17 10:15; Start 02/09/17 at 15:45 Heparin Sodium (Porcine) (Heparin Inj) UNSCH PRN .XX WITH DIALYSIS Last administered on 02/28/17 11:12; Start 02/09/17 at 15:45 Gentamicin Sulfate (Gentamicin (Dialysis) Inj) 20 mg UNSCH PRN IV WITH DIALYSIS Last administered on 02/28/17 11:12; Start 02/09/17 at 15:45 Ondansetron HCl (Zofran Inj) 4 mg UNSCH PRN IV WITH DIALYSIS Last administered on 02/21/17 18:11; Start 02/09/17 at 15:45 Acetaminophen (Tylenol) 650 mg UNSCH PRN PO for headach, temp > 101F; Start at 15:45 Diphenhydramine HCl (Benadryl) 25 mg UNSCH PRN PO for hives/itching/ anaphylaxis Last administered on 02/27/17 06:38; Start 02/09/17 at 15:45 Nitroglycerin (Nitrostat Sl) 0.4 mg UNSCH PRN SL CHEST PAIN; Start 02/09/17 at 15:45 Clonidine (Catapres) 0.1 mg UNSCH PRN PO for BP > 180/100 X 2 readings Last administered on 02/21/17 18:36; Start 02/09/17 at 15:45 Gelatin 1 foam 1 foam UNSCH PRN TOP SEE LABEL COMMENTS; Start 02/09/17 at 15:45 Piperacillin Sod/ Tazobactam Sod (Zosyn 2.25 Gm Premix) 50 ml @ 100 mls/hr Q12H IV Last administered on 02/17/17 05:16; Start 02/09/17 at 18:00; Stop 02/17 at 13:19; Status DC Melatonin (Melatonin) 5 mg HS PRN PO SLEEP Last administered on 03/01/17 21:12 ; Start 02/10/17 at 17:15 Epoetin Moreno 83970 units 20,000 units MoWeFr SQ ; Start 02/13/17 at 14:00; Status Cancel Iron Sucrose/ Sodium Chloride (Venofer Inj/NS Inj) 105 ml @ 105 mls/hr DAILY IV Last administered on 02/14/17 10:13; Start 02/12/17 at 12:00; Stop at 09:59; Status DC Epoetin Moreno (Epogen Inj) 20,000 units UNSCH PRN IV WITH DIALYSIS Last administered on 02/28/17 11:13; Start 02/12/17 at 10:15 Furosemide (Lasix Inj) 60 mg ONCE ONCE IV PUSH Last administered on 02/12/17 20:51; Start 02/12/17 at 20:45; Stop 02/12/17 at 20:48; Status DC Oxycodone HCl (Roxicodone) 10 mg Q4H PRN PO PAIN 6-10 Last administered on 03/01 21:15; Start 02/13/17 at 11:15 Albuterol Sulfate (Albuterol Neb) 1.25 mg Q4HR NEB PRN NEB SOB/WHEEZING Last administered on 02/20/17 05:29; Start 02/13/17 at 11:15 Furosemide (Lasix Inj) 40 mg DAILY IV PUSH Last administered on 02/20/17 10:03 ; Start 02/16/17 at 09:00; Stop 02/20/17 at 16:52; Status DC Furosemide (Lasix Inj) 40 mg ONCE ONCE IV PUSH Last administered on 02/15/17 13:18; Start 02/15/17 at 11:30; Stop 02/15/17 at 11:36; Status DC Heparin Sodium (Porcine) (Heparin Inj) 5,000 units Q12HR SQ Last administered on 03/02/17 09:09; Start 02/16/17 at 21:00 Aspirin (Aspirin Chew) 81 mg DAILY CHEW Last administered on 03/02/17 09:09; Start 02/17/17 at 09:00 Heparin Sodium (Porcine) (*HEPARIN INJ Periprocedural ONLY) 10,000 units STK- MED ONCE .ROUTE Last administered on 02/18/17 08:45; Start 02/18/17 at 09:11; Stop 02/18/17 at 09:12; Status DC Albuterol/ Ipratropium (Duoneb Neb) 1 ampule QID NEB NEB Last administered on 02/23/17 15:38; Start 02/19/17 at 20:00; Stop 02/23/17 at 20:00; Status DC Furosemide (Lasix Inj) 40 mg ONCE ONCE IV PUSH Last administered on 02/20/17 05:38; Start 02/20/17 at 05:30; Stop 02/20/17 at 05:34; Status DC Furosemide (Lasix Inj) 40 mg BID IV PUSH Last administered on 02/21/17 09:48; Start 02/20/17 at 21:00; Stop 02/21/17 at 10:03; Status DC Furosemide (Lasix Inj) 80 mg BID IV PUSH Last administered on 03/02/17 09:09; Start 02/21/17 at 21:00 Nystatin (Mycostatin Liq) 5 ml QID SWISH-SWAL Last administered on 03/02/17 12:10; Start 02/22/17 at 13:00 Lorazepam (Ativan Inj) 1 mg ONCE PRN IV PUSH Before MRI Scan Last administered on 02/24/17 18:14; Start 02/24/17 at 11:15; Stop 02/25/17 at 11:14; Status DC Iohexol (Omnipaque 350 Inj) 10 ml STK-MED ONCE .XX Last administered on 18:26; Start 02/27/17 at 18:26; Stop 02/27/17 at 18:27; Status DC Alteplase, Recombinant (Cathflo Activase Inj) 2 mg ONCE ONCE INTRACATH ; Start 03/01/17 at 12:00; Stop 03/01/17 at 12:01; Status DC A/P Problem List: (1) Cholecystitis ICD Code: K81.9 Status: Acute (2) Elevated LFTs ICD Code: R79.89 Status: Acute (3) Renal insufficiency ICD Code: N28.9 Status: Acute (4) CHF (congestive heart failure) ICD Code: I50.9 Status: Chronic (5) DM (diabetes mellitus) ICD Code: E11.9 Status: Acute Assessment and Plan 66-year-old female admitted secondary to cholecystitis. Status post cholecystostomy tube placement by IR. Complicated course by acute renal failure , anemia, CHF, pleural effusion. Acute cholecystitis Status post cholecystostomy tube placement by IR Status post completed Zosyn treatment. All cultures neg. Continue pain control Continue postop wound care Monitor biliary drain output, IR following. Post surgical candidate. General surgery signed off. Bilateral Lower Extremity paralysis MRI of lumbar spine, no cord compression.? ischemia per Neurology. 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 Daily aspirin Low sodium diet Monitor pleural effusions Pulmonology following Cardiology following. Not a good candidate for invasive procedures such as revascularization. Acute on chronic renal failure Metabolic acidosis secondary to acute renal failure Nephrology following Vas-Cath present Continue hemodialysis. On Lasix IV. Watch for renal recovery Minimal urine output Hypotension Resolved Continue midodrine as needed Follow blood pressures Diabetes mellitus Insulin sliding scale Levemir Diabetic diet Follow blood sugars Chronic pain syndrome Insomnia Melatonin 5 mg by mouth daily at bedtime PRN for insomnia Continue as needed pain control treatments Mild protein calorie Malnutrition Nutrition is consulted anemia of chronic disease Epogen and IV iron. Follow CBC DVT prophylaxis SCDs heparin Discharge Planning Dealt with case management family will not pick a SNF yet. Dealt with patient's nurse will need to wean her off oxygen to see if patient really needs oxygen. Dealt with patient and her son extensively on her medical conditions and management. Leonor Nielson MD Mar 02, 2017 14:55
--- NOTE | 2017-03-02 15:39 | HHI.NPPN ---
Subjective History of Present Illness 66-year-old female with a past medical history of hypertension, diabetes mellitus, chronic kidney disease, anemia and chronic back pain, who was admitted because of abdominal pain, nausea and vomiting. I was called to see the patient because of elevated BUN and creatinine. The patient has known history of chronic kidney disease and she had acute kidney injury. Additional Remarks Patient is alert, no SOB, with nasal cannula, now eating , no abd. pain. Review of Systems General Constitutional: Fatigue Objective Data Data 03/01/17 03/02/17 19:00 07:00 Intake Total 340 ml Output Total 25 ml Balance 315 ml Intake Oral 340 ml Output Urine Total 0 ml Drainage Total 25 ml Bladder Scan Volume Amount 46 ml 70 ml # Voids 0 # Bowel Movements 0 Vital Signs Date Time Temp Pulse Resp B/P Pulse Ox O2 Delivery O2 Flow Rate FiO2 03/02/17 12:59 100 Nasal Cannula 3.00 03/02/17 12:00 98.0 80 18 132/60 100 03/02/17 12:00 Nasal Cannula 2.00 03/02/17 08:00 84 03/02/17 08:00 Nasal Cannula 2.00 03/02/17 08:00 98.2 90 20 145/67 100 03/02/17 04:00 Nasal Cannula 2.00 03/02/17 04:00 98.5 79 20 110/56 100 03/02/17 00:00 Nasal Cannula 2.00 03/02/17 00:00 98.5 78 20 144/79 100 03/01/17 21:44 100 Nasal Cannula 2.00 03/01/17 20:34 71 03/01/17 20:00 Nasal Cannula 2.00 03/01/17 20:00 98.2 75 20 142/58 100 03/01/17 18:14 2.00 03/01/17 17:20 98.0 76 117/57 99 03/01/17 16:03 Nasal Cannula 2.00 -: 03/01/17 0908 03/01/17 0908 Physical Exam General Appearance Remarks Mild resp. distress. Eyes Eye Exam: Pupils Equal Throat Throat Exam: Oral Mucosa [place] & Moist Neck Neck Exam: Neck Supple Pulmonary Resp Exam: Breath Sounds Equal, No Distress, Rhonchi, Decreased Bases, Diminished Breath Sounds Cardiology CV Exam: Regular, Normal Sinus Rhythm Gastrointestinal/Abdomen GI Exam: Soft, Bowel Sounds Present, Distended Extremeties Extremities Exam: Trace Edema Neurologic Neuro Exam: Alert, Awake, Oriented Psychiatric Psych Exam: Appropriate Responses Assessment/Plan Assessment Summary: GRADY/Acute Renal Failure, Hypotension, CKD Stage IV Problem List: (1) Acute kidney failure Plan: Urine out put is decreased again, on Lasix. Creatinine still elevated. Continue dialysis support as needed. Avoid nephrotoxic agents. On Lasix. to 80 mg IV Q12. Watch for signs of renal recovery. HD done Sat. Follow BMP and HD will be in AM. (2) Diabetes mellitus (3) CHF (congestive heart failure) (4) Cholecystitis (5) Gallstones (6) Elevated LFTs (7) Anemia (8) Stage 4 chronic kidney disease Problem Qualifiers (1) Anemia: Svitlana Cook MD Mar 02, 2017 15:39
[2017-03-02 18:00] LABS: AUTOMATED NEUTROPHIL # 4.3 TH/MM3 (1.8-7.7); BASOPHIL # 0.1 TH/MM3 (0-0.2); BASOPHIL % 0.9 % (0.0-2.0); EOSINOPHIL # 0.9 TH/MM3 (0-0.4); EOSINOPHIL % 11.8 % (0.0-4.0); HEMATOCRIT 29.6 % (35.0-46.0); HEMO FLAGS DIFF FINAL; LYMPH % 21.7 % (9.0-44.0); LYMPHOCYTE # 1.7 TH/MM3 (1.0-4.8); MEAN CELL VOLUME 68.5 FL (80.0-100.0); MEAN CORPUSCULAR HGB CONC 30.6 % (32.0-36.0); MONO % 11.6 % (0.0-8.0); PLATELET COUNT 392 TH/MM3 (150-450); RED BLOOD COUNT 4.32 MIL/MM3 (4.00-5.30); RED CELL DISTRIBUTION WIDTH 17.8 % (11.6-17.2)
[2017-03-02 18:22] LABS: ALKALINE PHOSPHATASE 104 U/L (45-117); ALT (GPT) 36 U/L (10-53); ANION GAP 12 MEQ/L (5-15); AST (GOT) 53 U/L (15-37); BICARBONATE 27.2 MEQ/L (21.0-32.0); BLOOD UREA NITROGEN 61 MG/DL (7-18); CHLORIDE 93 MEQ/L (98-107); GLOMERULAR FILTRATION RATE 6 ML/MIN (>89); POTASSIUM 4.9 MEQ/L (3.5-5.1); SODIUM (NA) 132 MEQ/L (136-145); TOTAL BILIRUBIN ADULT 0.3 MG/DL (0.2-1.0)
[2017-03-03] VITALS: BP 124/61; PULSE 81; RESP 16; TEMP 98.3; O2SAT 99
[2017-03-03 04:00] VITALS: BP 134/63; PULSE 86; RESP 16; TEMP 98.8; O2SAT 100
[2017-03-03] MEDS: INSULIN ASPART SUPPLEMENTAL SCALE SQ SCH ×4 (05:28→20:41)
[2017-03-03] MEDS: MIDODRINE 5 MG TAB PO SCH ×3 (06:54→18:31)
[2017-03-03 08:00] VITALS: BP 120/68; PULSE 86; RESP 18; TEMP 98.6; O2SAT 100
[2017-03-03] MEDS: INSULIN DETEMIR 100 UNITS/ML VIAL SQ SCH (08:53)
[2017-03-03] MEDS: FUROSEMIDE 40 MG/4 ML VIAL IV PUSH SCH ×2 (08:54→20:56)
[2017-03-03] MEDS: DOCUSATE SODIUM 50 MG/SENNA 8.6 MG TAB PO SCH ×2 (08:55→20:45)
[2017-03-03] MEDS: HEPARIN SODIUM - SQ 10,000 UNITS/ML VIAL SQ SCH ×2 (08:55→20:46)
[2017-03-03] MEDS: SODIUM CHLORIDE 0.9% FLUSH 10 ML FLUSH IV FLUSH SCH ×2 (08:55→20:55)
[2017-03-03] MEDS: NYSTATIN SUSP 500,000 U/5 ML CUP SWISH-SWAL SCH ×4 (08:55→20:45)
[2017-03-03] MEDS: ASPIRIN 81 MG CHEW TAB CHEW SCH (08:55)
[2017-03-03] MEDS: CARVEDILOL 3.125 MG TAB PO SCH ×2 (08:55→20:56)
[2017-03-03 09:37] LABS: HEMATOCRIT 29.3 % (35.0-46.0); MEAN CELL VOLUME 68.4 FL (80.0-100.0); MEAN CORPUSCULAR HEMOGLOBIN 20.7 PG (27.0-34.0); MEAN CORPUSCULAR HGB CONC 30.2 % (32.0-36.0); PLATELET COUNT 400 TH/MM3 (150-450); RED BLOOD COUNT 4.28 MIL/MM3 (4.00-5.30); RED CELL DISTRIBUTION WIDTH 17.5 % (11.6-17.2); REVIEW FLAG FINAL
[2017-03-03 10:00] LABS: BICARBONATE 27.4 MEQ/L (21.0-32.0); POTASSIUM 4.9 MEQ/L (3.5-5.1)
[2017-03-03 11:24] VITALS: O2SAT 98
[2017-03-03] MEDS: GENTAMICIN SULFATE (DIALYSIS USE ONLY) 20 MG/2 ML VIAL IV PRN (13:00)
[2017-03-03] MEDS: EPOETIN ALFA 20,000 UNITS/ML VIAL IV PRN (13:01)
[2017-03-03] MEDS: HEPARIN SODIUM - IV 10,000 UNITS/10 ML VIAL PRN (13:01)
[2017-03-03] MEDS: SODIUM CHLOR 0.9% 1000 ML INJ 1,000 ML IV PRN (13:01)
--- NOTE | 2017-03-03 13:29 | HHI.PR ---
Subjective Remarks Follow-up for multiple medical conditions [place] assessment plan Patient seen dialysis. Patient complained that his cold in the room. Dialysis nurse stated that she will get more blankets for the patient. Patient complained of dizziness. When I asked her when she cannot really tell me. The dialysis nurses stated that she had dizziness before getting dialysis. When I asked patient if moving her head made her dizziness worse. She stated that she is a have dizziness anymore. She denies any headache. Denied any nausea or vomiting. Deny any other focal neurological deficit. She stated that she is not able to move her lower extremity still. Otherwise she has no other complaints. She continues have very low urine output. Objective Vitals Vital Signs Date Time Temp Pulse Resp B/P Pulse Ox O2 Delivery O2 Flow Rate FiO2 03/03/17 11:24 98 2.00 03/03/17 08:00 Nasal Cannula 2.00 03/03/17 08:00 98.6 86 18 120/68 100 03/03/17 04:00 98.8 86 16 134/63 100 03/03/17 04:00 Nasal Cannula 2.00 03/03/17 00:00 98.3 81 16 124/61 99 03/03/17 00:00 Nasal Cannula 2.00 03/02/17 20:00 Nasal Cannula 2.00 03/02/17 20:00 98.0 78 16 174/82 98 03/02/17 19:51 75 03/02/17 16:00 100 2.00 03/02/17 16:00 98.2 69 20 130/62 100 I/O 03/02/17 03/02/17 03/02/17 03/03/17 03/03/17 03/03/17 06:59 14:59 22:59 06:59 14:59 22:59 Intake Total 100 ml 256 ml Output Total 25 ml 30 ml 20 ml 1000 ml Balance 75 ml -30 ml 256 ml -20 ml -1000 ml Intake Oral 100 ml 250 ml IV Total 6 ml Drainage Total 25 ml 30 ml 20 ml Hemodialysis 1000 ml Bladder Scan Volume Amount 70 ml 78 ml # Voids 0 Result Diagram: 03/03/17 0850 03/03/17 0850 Objective Remarks GENERAL: Patient is no acute distress. CARDIOVASCULAR: Regular rate and rhythm without murmurs, gallops, or rubs. RESPIRATORY: Clear to auscultation. Breath sounds equal bilaterally. No wheezes , rales, or rhonchi. GASTROINTESTINAL: Abdomen soft, non-tender, nondistended. Normal active bowel sounds MUSCULOSKELETAL: Extremities without clubbing, cyanosis, or edema. NEURO: Alert & Oriented x4 to person, place, time, situation. Ricardo lower extremity paralysis. She will not move her lower extremity. UE 4+/5 Procedures Vas-Cath placement per IR cholecystostomy tube placement Medications and IVs Current Medications Ondansetron HCl (Zofran Inj) 4 mg ONCE ONCE IV PUSH Last administered on 16:37; Start 02/05/17 at 16:30; Stop 02/05/17 at 16:31; Status DC Morphine Sulfate 4 mg 4 mg ONCE ONCE IV PUSH Last administered on 02/05/17 17 :10; Start 02/05/17 at 17:00; Stop 02/05/17 at 17:01; Status DC Sodium Chloride 500 ml @ 500 mls/hr BOLUS ONCE IV Last administered on 17:10; Start 02/05/17 at 17:00; Stop 02/05/17 at 17:59; Status DC Piperacillin Sod/ Tazobactam Sod (Zosyn 3.375 Gm Premix) 50 ml @ 100 mls/hr ONCE ONCE IV Last administered on 02/05/17 18:52; Start 02/05/17 at 18:45; Stop 02/05/17 at 19:14; Status DC Morphine Sulfate (Morphine Inj) 2 mg ONCE ONCE IV PUSH Last administered on 19:00; Start 02/05/17 at 19:00; Stop 02/05/17 at 19:01; Status DC Dextrose (D50w (Vial) Inj) 50 ml UNSCH PRN IV HYPOGLYCEMIA-SEE COMMENTS; Start 02/05/17 at 19:30 Glucagon (Glucagon Inj) 1 mg UNSCH PRN OTHER HYPOGLYCEMIA-SEE COMMENTS; Start 02/05/17 at 19:30 Insulin Aspart 1 1 ACHS SLIDING SCALE SQ Last administered on 03/02/17 16:52 ; Start 02/05/17 at 21:00 Piperacillin Sod/ Tazobactam Sod 50 ml @ 100 mls/hr Q6H IV Last administered on 02/09/17 06:01; Start 02/06/17 at 00:00; Stop 02/09/17 at 16:32; Status DC Sodium Chloride (NS 1000 ml Inj) 1,000 ml @ 50 mls/hr Q20H IV Last administered on 02/06/17 04:19; Start 02/05/17 at 19:16; Status Hold Sodium Chloride (NS Flush) 2 ml UNSCH PRN IV FLUSH FLUSH AFTER USING IV ACCESS ; Start 02/05/17 at 19:30 Sodium Chloride (NS Flush) 2 ml BID IV FLUSH Last administered on 03/03/17 08: 55; Start 02/05/17 at 21:00 Ondansetron HCl (Zofran Inj) 4 mg Q6H PRN IVP NAUSEA OR VOMITING Last administered on 02/12/17 03:32; Start 02/05/17 at 19:30 Acetaminophen (Tylenol) 650 mg Q6H PRN PO FEVER; Start 02/05/17 at 19:30 Morphine Sulfate (Morphine Inj) 2 mg Q3H PRN IV Pain 6-10 Last administered on 02/06/17 07:59; Start 02/05/17 at 19:30; Stop 02/06/17 at 11:21; Status DC Oxycodone HCl (Roxicodone) 5 mg Q4H PRN PO PAIN SCALE 3 TO 5 Last administered on 02/12/17 22:10; Start 02/05/17 at 19:30 Senna/Docusate Sodium (Terese-Colace) 1 tab BID PO Last administered on 08:55; Start 02/05/17 at 21:00 Magnesium Hydroxide (Milk Of Magnesia Liq) 30 ml Q12H PRN PO MILD - MODERATE CONSTIPATION Last administered on 02/06/17 07:59; Start 02/05/17 at 19:30 Sennosides (Senokot) 17.2 mg Q12H PRN PO MODERATE - SEVERE CONSTIPATION; Start 02/05/17 at 19:30 Bisacodyl (Dulcolax Supp) 10 mg DAILY PRN RECTAL SEVERE CONSTIPATION; Start at 19:30 Lactulose (Lactulose Liq) 30 ml DAILY PRN PO SEVERE CONSITIPATION Last administered on 02/06/17 17:46; Start 02/05/17 at 19:30 Amlodipine Besylate (Norvasc) 10 mg DAILY PO Last administered on 02/06/17 07: 57; Start 02/06/17 at 09:00; Status Hold Carvedilol (Coreg) 3.125 mg Q12HR PO Last administered on 03/03/17 08:55; Start 02/05/17 at 21:00 Tizanidine HCl (Zanaflex) 4 mg TID PO Last administered on 03/02/17 17:29; Start 02/06/17 at 09:00 Insulin Detemir (Levemir Inj) 20 units DAILY SQ ; Start 02/06/17 at 09:00; Stop 02/06/17 at 09:00; Status DC Insulin Detemir (Levemir Inj) 10 units DAILY SQ Last administered on 03/03/17 08:53; Start 02/06/17 at 09:00 Promethazine HCl (Phenergan) 25 mg ONCE ONCE PO Last administered on 07:04; Start 02/06/17 at 07:00; Stop 02/06/17 at 07:01; Status DC Furosemide (Lasix Inj) 40 mg ONCE ONCE IV PUSH Last administered on 02/06/17 12:47; Start 02/06/17 at 11:00; Stop 02/06/17 at 11:01; Status DC Sodium Bicarbonate (Sodium Bicarbonate 8.4% Inj) 50 meq ONCE ONCE IV PUSH Last administered on 02/06/17 12:48; Start 02/06/17 at 12:00; Stop 02/06/17 at 12:01; Status DC Morphine Sulfate (Morphine Inj) 1 mg Q4HR PRN IV BREAKTHROUGH PAIN Last administered on 02/17/17 17:57; Start 02/06/17 at 12:00 Fentanyl Citrate (fentaNYL INJ) 250 mcg STK-MED ONCE .ROUTE Last administered on 02/06/17 15:18; Start 02/06/17 at 15:18; Stop 02/06/17 at 15:19; Status DC Iohexol (Omnipaque 350 Inj) 8 ml STK-MED ONCE .XX Last administered on 16:50; Start 02/06/17 at 16:50; Stop 02/06/17 at 16:51; Status DC Ketorolac Tromethamine 15 mg 15 mg ONCE ONCE IV PUSH ; Start 02/07/17 at 04:45 ; Stop 02/07/17 at 04:46; Status DC Sodium Chloride 1,000 ml @ 84 mls/hr [id number] IV Last administered on 15:00; Start 02/07/17 at 15:00; Stop 02/07/17 at 19:40; Status DC Sodium Bicarbonate 150 meq/Dextrose 1,150 ml @ 150 mls/hr [id number] IV Last administered on 02/09/17 13:14; Start 02/07/17 at 19:45; Stop 02/09/17 at 15:39 ; Status DC Bumetanide (Bumex Inj) 100 ml @ 4 mls/hr CONTINUOUS IV Last administered on 13:09; Start 02/08/17 at 13:00; Stop 02/09/17 at 15:39; Status DC Midodrine (Proamatine) 10 mg TID@07,12,17 PO Last administered on 03/02/17 16: 47; Start 02/08/17 at 17:00 Miscellaneous Information Patient in critical care unit? Ass... [id number] .XX ; Start 02/08/17 at 23:00 Chlorhexidine Gluconate (Chlorhexidine 2% Cloth) 3 pack DAILY@04 TOPICAL Last administered on 02/11/17 04:34; Start 02/09/17 at 04:00; Stop 02/13/17 at 04:01 ; Status DC Chlorhexidine Gluconate (Chlorhexidine 2% Cloth) 3 pack UNSCH PRN TOPICAL HYGIENIC CARE; Start 02/08/17 at 23:00; Stop 02/13/17 at 22:56; Status DC Heparin Sodium (Porcine) (*HEPARIN INJ Periprocedural ONLY) 10,000 units STK- MED ONCE .ROUTE Last administered on 02/09/17 15:10; Start 02/09/17 at 13:51; Stop 02/09/17 at 13:52; Status DC Sodium Chloride (NS Flush) UNSCH PRN IVF SEE PROTOCOL; Start 02/09/17 at 15:30 Heparin Sodium (Porcine) UNSCH PRN IV FLUSH SEE PROTOCOL; Start 02/09/17 at 15 :30 Sodium Chloride (NS 1000 ml Inj) 1,000 ml @ 0 mls/hr Q0M PRN IV For Prime & Rinse Back Last administered on 02/28/17 11:13; Start 02/09/17 at 15:39 Heparin Sodium (Porcine) 8000 units 8,000 units UNSCH PRN IVF WITH DIALYSIS; Start 02/09/17 at 15:45 Sodium Chloride 1,000 ml @ 200 mls/hr Q5H PRN IV WITH DIALYSIS; Start 02/09/17 at 15:39 Sodium Chloride (NS 1000 ml Inj) 1,000 ml @ 0 mls/hr Q0M PRN IV WITH DIALYSIS Last administered on 03/03/17 13:01; Start 02/09/17 at 15:39 Mannitol (Mannitol Inj) 12.5 gm UNSCH PRN IV WITH DIALYSIS Last administered on 02/20/17 15:13; Start 02/09/17 at 15:45 Albumin Human (Albumin 25% Inj) 25 gm UNSCH PRN IV WITH DIALYSIS Last administered on 02/24/17 12:27; Start 02/09/17 at 15:45 Sodium Chloride (NS Flush) 5 ml UNSCH PRN IV FLUSH WITH DIALYSIS Last administered on 02/14/17 10:15; Start 02/09/17 at 15:45 Heparin Sodium (Porcine) (Heparin Inj) UNSCH PRN .XX WITH DIALYSIS Last administered on 03/03/17 13:01; Start 02/09/17 at 15:45 Gentamicin Sulfate (Gentamicin (Dialysis) Inj) 20 mg UNSCH PRN IV WITH DIALYSIS Last administered on 03/03/17 13:00; Start 02/09/17 at 15:45 Ondansetron HCl (Zofran Inj) 4 mg UNSCH PRN IV WITH DIALYSIS Last administered on 02/21/17 18:11; Start 02/09/17 at 15:45 Acetaminophen (Tylenol) 650 mg UNSCH PRN PO for headach, temp > 101F; Start at 15:45 Diphenhydramine HCl (Benadryl) 25 mg UNSCH PRN PO for hives/itching/ anaphylaxis Last administered on 02/27/17 06:38; Start 02/09/17 at 15:45 Nitroglycerin (Nitrostat Sl) 0.4 mg UNSCH PRN SL CHEST PAIN; Start 02/09/17 at 15:45 Clonidine (Catapres) 0.1 mg UNSCH PRN PO for BP > 180/100 X 2 readings Last administered on 02/21/17 18:36; Start 02/09/17 at 15:45 Gelatin 1 foam 1 foam UNSCH PRN TOP SEE LABEL COMMENTS; Start 02/09/17 at 15:45 Piperacillin Sod/ Tazobactam Sod (Zosyn 2.25 Gm Premix) 50 ml @ 100 mls/hr Q12H IV Last administered on 02/17/17 05:16; Start 02/09/17 at 18:00; Stop 02/17 at 13:19; Status DC Melatonin (Melatonin) 5 mg HS PRN PO SLEEP Last administered on 03/01/17 21:12 ; Start 02/10/17 at 17:15 Epoetin Moreno 29903 units 20,000 units MoWeFr SQ ; Start 02/13/17 at 14:00; Status Cancel Iron Sucrose/ Sodium Chloride (Venofer Inj/NS Inj) 105 ml @ 105 mls/hr DAILY IV Last administered on 02/14/17 10:13; Start 02/12/17 at 12:00; Stop at 09:59; Status DC Epoetin Moreno (Epogen Inj) 20,000 units UNSCH PRN IV WITH DIALYSIS Last administered on 03/03/17 13:01; Start 02/12/17 at 10:15 Furosemide (Lasix Inj) 60 mg ONCE ONCE IV PUSH Last administered on 02/12/17 20:51; Start 02/12/17 at 20:45; Stop 02/12/17 at 20:48; Status DC Oxycodone HCl (Roxicodone) 10 mg Q4H PRN PO PAIN 6-10 Last administered on 03/03 02:01; Start 02/13/17 at 11:15 Albuterol Sulfate (Albuterol Neb) 1.25 mg Q4HR NEB PRN NEB SOB/WHEEZING Last administered on 02/20/17 05:29; Start 02/13/17 at 11:15 Furosemide (Lasix Inj) 40 mg DAILY IV PUSH Last administered on 02/20/17 10:03 ; Start 02/16/17 at 09:00; Stop 02/20/17 at 16:52; Status DC Furosemide (Lasix Inj) 40 mg ONCE ONCE IV PUSH Last administered on 02/15/17 13:18; Start 02/15/17 at 11:30; Stop 02/15/17 at 11:36; Status DC Heparin Sodium (Porcine) (Heparin Inj) 5,000 units Q12HR SQ Last administered on 03/03/17 08:55; Start 02/16/17 at 21:00 Aspirin (Aspirin Chew) 81 mg DAILY CHEW Last administered on 03/03/17 08:55; Start 02/17/17 at 09:00 Heparin Sodium (Porcine) (*HEPARIN INJ Periprocedural ONLY) 10,000 units STK- MED ONCE .ROUTE Last administered on 02/18/17 08:45; Start 02/18/17 at 09:11; Stop 02/18/17 at 09:12; Status DC Albuterol/ Ipratropium (Duoneb Neb) 1 ampule QID NEB NEB Last administered on 02/23/17 15:38; Start 02/19/17 at 20:00; Stop 02/23/17 at 20:00; Status DC Furosemide (Lasix Inj) 40 mg ONCE ONCE IV PUSH Last administered on 02/20/17 05:38; Start 02/20/17 at 05:30; Stop 02/20/17 at 05:34; Status DC Furosemide (Lasix Inj) 40 mg BID IV PUSH Last administered on 02/21/17 09:48; Start 02/20/17 at 21:00; Stop 02/21/17 at 10:03; Status DC Furosemide (Lasix Inj) 80 mg BID IV PUSH Last administered on 03/03/17 08:54; Start 02/21/17 at 21:00 Nystatin (Mycostatin Liq) 5 ml QID SWISH-SWAL Last administered on 03/03/17 08:55; Start 02/22/17 at 13:00 Lorazepam (Ativan Inj) 1 mg ONCE PRN IV PUSH Before MRI Scan Last administered on 02/24/17 18:14; Start 02/24/17 at 11:15; Stop 02/25/17 at 11:14; Status DC Iohexol (Omnipaque 350 Inj) 10 ml STK-MED ONCE .XX Last administered on 18:26; Start 02/27/17 at 18:26; Stop 02/27/17 at 18:27; Status DC Alteplase, Recombinant (Cathflo Activase Inj) 2 mg ONCE ONCE INTRACATH ; Start 03/01/17 at 12:00; Stop 03/01/17 at 12:01; Status DC A/P Problem List: (1) Cholecystitis ICD Code: K81.9 Status: Acute (2) Elevated LFTs ICD Code: R79.89 Status: Acute (3) Renal insufficiency ICD Code: N28.9 Status: Acute (4) CHF (congestive heart failure) ICD Code: I50.9 Status: Chronic (5) DM (diabetes mellitus) ICD Code: E11.9 Status: Acute Assessment and Plan 66-year-old female admitted secondary to cholecystitis. Status post cholecystostomy tube placement by IR. Complicated course by acute renal failure , anemia, CHF, pleural effusion. Acute cholecystitis Status post cholecystostomy tube placement by IR Status post completed Zosyn treatment. All cultures neg. Continue pain control Continue postop wound care Monitor biliary drain output, IR following. Post surgical candidate. General surgery signed off. Bilateral Lower Extremity paralysis MRI of lumbar spine, no cord compression.? ischemia per Neurology. Will need custodial care Neurology following Follow clinically Monitor for any progression Acute systolic CHF Pulm Edema pleural effusion: 80 mg IV Lasix BID daily 2D ECHO, EF of 30-35%. Daily aspirin Low sodium diet Monitor pleural effusions Pulmonology following Cardiology following. Not a good candidate for invasive procedures such as revascularization. Acute on chronic renal failure Metabolic acidosis secondary to acute renal failure Nephrology following Vas-Cath present Continue hemodialysis. On Lasix IV but does not have good urine output. Very minimal.. Watch for renal recovery Hypotension Resolved Continue midodrine as needed Follow blood pressures Diabetes mellitus Insulin sliding scale Levemir Diabetic diet Follow blood sugars Chronic pain syndrome Insomnia Melatonin 5 mg by mouth daily at bedtime PRN for insomnia Continue as needed pain control treatments Mild protein calorie Malnutrition Nutrition is consulted anemia of chronic disease Epogen and IV iron. Follow CBC DVT prophylaxis SCDs heparin Discharge Planning Dealt with case management in regards to discharge planning. Leonor Nielson MD Mar 03, 2017 13:29
[2017-03-03 16:00] VITALS: BP 165/72; PULSE 97; RESP 18; TEMP 98.7; O2SAT 100
--- NOTE | 2017-03-03 17:26 | HHI.NPPN ---
Subjective History of Present Illness 66-year-old female with a past medical history of hypertension, diabetes mellitus, chronic kidney disease, anemia and chronic back pain, who was admitted because of abdominal pain, nausea and vomiting. I was called to see the patient because of elevated BUN and creatinine. The patient has known history of chronic kidney disease and she had acute kidney injury. Additional Remarks Patient is alert, no SOB, with nasal cannula, now eating , remain bed ridden, getting PT. Review of Systems General Constitutional: Fatigue Objective Data Data 03/02/17 03/03/17 19:00 07:00 Intake Total 256 ml Output Total 30 ml 20 ml Balance -30 ml 236 ml Intake Oral 250 ml IV Total 6 ml Drainage Total 30 ml 20 ml Bladder Scan Volume Amount 78 ml Vital Signs Date Time Temp Pulse Resp B/P Pulse Ox O2 Delivery O2 Flow Rate FiO2 03/03/17 16:00 98.7 97 18 165/72 100 03/03/17 11:24 98 2.00 03/03/17 08:00 Nasal Cannula 2.00 03/03/17 08:00 98.6 86 18 120/68 100 03/03/17 04:00 98.8 86 16 134/63 100 03/03/17 04:00 Nasal Cannula 2.00 03/03/17 00:00 98.3 81 16 124/61 99 03/03/17 00:00 Nasal Cannula 2.00 03/02/17 20:00 Nasal Cannula 2.00 03/02/17 20:00 98.0 78 16 174/82 98 03/02/17 19:51 75 -: 03/03/17 0850 03/03/17 0850 Physical Exam General Appearance Remarks Mild resp. distress. Eyes Eye Exam: Pupils Equal Throat Throat Exam: Oral Mucosa [place] & Moist Neck Neck Exam: Neck Supple Pulmonary Resp Exam: Breath Sounds Equal, No Distress, Rhonchi, Decreased Bases, Diminished Breath Sounds Cardiology CV Exam: Regular, Normal Sinus Rhythm Gastrointestinal/Abdomen GI Exam: Soft, Bowel Sounds Present, Distended Extremeties Extremities Exam: Trace Edema Neurologic Neuro Exam: Alert, Awake, Oriented Psychiatric Psych Exam: Appropriate Responses Assessment/Plan Assessment Summary: GRADY/Acute Renal Failure, Hypotension, CKD Stage IV Problem List: (1) Acute kidney failure Plan: Urine out put is decreased again, on Lasix. Creatinine still elevated. Continue dialysis support as needed. Avoid nephrotoxic agents. On Lasix. to 80 mg IV Q12. HD done today and 1 liter removed. Her GFR was around 18 in November, possibly has End stage renal disease,. Continue PT and out patient HD arrangement. (2) Diabetes mellitus (3) CHF (congestive heart failure) (4) Cholecystitis (5) Gallstones (6) Elevated LFTs (7) Anemia (8) Stage 4 chronic kidney disease Problem Qualifiers (1) Anemia: Svitlana Cook MD Mar 03, 2017 17:26
[2017-03-03 20:00] VITALS: BP 150/70; PULSE 85; PULSE 92; RESP 18; TEMP 99.2; O2SAT 100
[2017-03-04] VITALS (7 sets, daily range): BP systolic 101–153; BP diastolic 50–82; PULSE 73–90; RESP 16–20; TEMP 97.6–98.8; O2SAT 95–100
[2017-03-04] MEDS: INSULIN ASPART SUPPLEMENTAL SCALE SQ SCH ×4 (05:55→21:04)
[2017-03-04] MEDS: MIDODRINE 5 MG TAB PO SCH ×3 (05:55→17:07)
[2017-03-04] MEDS: NYSTATIN SUSP 500,000 U/5 ML CUP SWISH-SWAL SCH ×4 (09:00→20:59)
[2017-03-04] MEDS: FUROSEMIDE 40 MG/4 ML VIAL IV PUSH SCH ×2 (09:28→20:59)
[2017-03-04] MEDS: SODIUM CHLORIDE 0.9% FLUSH 10 ML FLUSH IV FLUSH SCH ×2 (09:28→20:59)
[2017-03-04] MEDS: DOCUSATE SODIUM 50 MG/SENNA 8.6 MG TAB PO SCH ×2 (09:30→20:58)
[2017-03-04] MEDS: HEPARIN SODIUM - SQ 10,000 UNITS/ML VIAL SQ SCH ×2 (09:31→20:59)
[2017-03-04] MEDS: CARVEDILOL 3.125 MG TAB PO SCH ×2 (09:31→20:58)
[2017-03-04] MEDS: ASPIRIN 81 MG CHEW TAB CHEW SCH (09:31)
[2017-03-04] MEDS: INSULIN DETEMIR 100 UNITS/ML VIAL SQ SCH (09:40)
--- NOTE | 2017-03-04 13:50 | HHI.PR ---
Objective Vitals Vital Signs Date Time Temp Pulse Resp B/P Pulse Ox O2 Delivery O2 Flow Rate FiO2 03/04/17 12:00 98.8 78 18 101/50 95 03/04/17 11:10 95 Room Air 03/04/17 08:00 98.6 84 16 122/60 98 03/04/17 07:05 Nasal Cannula 2.00 03/04/17 04:00 98.7 88 18 126/66 100 03/04/17 04:00 Nasal Cannula 2.00 03/04/17 00:00 Nasal Cannula 2.00 03/04/17 00:00 98.5 90 20 139/82 96 03/03/17 20:00 Nasal Cannula 2.00 03/03/17 20:00 99.2 92 18 150/70 100 03/03/17 20:00 85 03/03/17 18:28 Nasal Cannula 2.00 03/03/17 16:00 98.7 97 18 165/72 100 I/O 03/03/17 03/03/17 03/03/17 03/04/17 03/04/17 03/04/17 07:00 15:00 23:00 07:00 15:00 23:00 Intake Total 120 ml 200 ml 100 ml Output Total 20 ml 1000 ml Balance -20 ml -880 ml 200 ml 100 ml Intake Oral 120 ml 200 ml 100 ml Drainage Total 20 ml Hemodialysis 1000 ml # Voids 1 0 0 # Bowel Movements 0 0 Result Diagram: 03/03/17 0850 03/03/17 0850 Objective Remarks GENERAL: Patient is no acute distress. CARDIOVASCULAR: Regular rate and rhythm without murmurs, gallops, or rubs. RESPIRATORY: Clear to auscultation. Breath sounds equal bilaterally. No wheezes , rales, or rhonchi. GASTROINTESTINAL: Abdomen soft, non-tender, nondistended. Normal active bowel sounds MUSCULOSKELETAL: Extremities without clubbing, cyanosis, or edema. NEURO: Alert & Oriented x4 to person, place, time, situation. Ricardo lower extremity paralysis. She will not move her lower extremity. UE 4+/5 Procedures Vas-Cath placement per IR cholecystostomy tube placement A/P Problem List: (1) Cholecystitis ICD Code: K81.9 Status: Acute (2) Elevated LFTs ICD Code: R79.89 Status: Acute (3) Renal insufficiency ICD Code: N28.9 Status: Acute (4) CHF (congestive heart failure) ICD Code: I50.9 Status: Chronic (5) DM (diabetes mellitus) ICD Code: E11.9 Status: Acute Assessment and Plan 66-year-old female admitted secondary to cholecystitis. Status post cholecystostomy tube placement by IR. Complicated course by acute renal failure , anemia, CHF, pleural effusion. Acute cholecystitis Status post cholecystostomy tube placement by IR Status post completed Zosyn treatment. All cultures neg. Continue pain control Continue postop wound care Monitor biliary drain output, IR following. Post surgical candidate. General surgery signed off. Bilateral Lower Extremity paralysis MRI of lumbar spine, no cord compression.? ischemia per Neurology. Will need usp care Neurology following Follow clinically Monitor for any progression Acute systolic CHF Pulm Edema pleural effusion: 80 mg IV Lasix BID daily 2D ECHO, EF of 30-35%. Daily aspirin Low sodium diet Monitor pleural effusions Pulmonology following Cardiology following. Not a good candidate for invasive procedures such as revascularization. Acute on chronic renal failure Metabolic acidosis secondary to acute renal failure Nephrology following Vas-Cath present Continue hemodialysis. On Lasix IV but does not have good urine output. Very minimal.. Watch for renal recovery Hypotension Resolved Continue midodrine as needed Follow blood pressures Diabetes mellitus Insulin sliding scale Levemir Diabetic diet Follow blood sugars Chronic pain syndrome Insomnia Melatonin 5 mg by mouth daily at bedtime PRN for insomnia Continue as needed pain control treatments Mild protein calorie Malnutrition Nutrition is consulted anemia of chronic disease Epogen and IV iron. Follow CBC DVT prophylaxis SCDs heparin Discharge Planning Dealt with case management in regards to discharge planning. Leonor Nielson MD Mar 04, 2017 13:50
[2017-03-04] MEDS ORDERED: IOHEXOL 350 MG/ML 50 ML BTL (for RAD DIAG) ONE (14:42)
--- NOTE | 2017-03-04 14:45 | HHI.PR ---
Subjective Remarks Follow-up for multiple medical issues listed assessment plan Patient had no complaints. Denied any SOB or any other concerns. Patient's son and sister at the bedside they also had no complaints. I also spoke to patient's daughter over the phone during the interview with the patient, nurse shop manager Rebecca and case management [place] present during the interview. I spent around 30 minutes listening to patient daughter's concern/complaints and addressed them all. She stated that she was happy that I went over everything with her. Patient has had no drainage the past couple days. Objective Vitals Vital Signs Date Time Temp Pulse Resp B/P Pulse Ox O2 Delivery O2 Flow Rate FiO2 03/04/17 12:00 98.8 78 18 101/50 95 03/04/17 11:10 95 Room Air 03/04/17 08:00 98.6 84 16 122/60 98 03/04/17 07:05 Nasal Cannula 2.00 03/04/17 04:00 98.7 88 18 126/66 100 03/04/17 04:00 Nasal Cannula 2.00 03/04/17 00:00 Nasal Cannula 2.00 03/04/17 00:00 98.5 90 20 139/82 96 03/03/17 20:00 Nasal Cannula 2.00 03/03/17 20:00 99.2 92 18 150/70 100 03/03/17 20:00 85 03/03/17 18:28 Nasal Cannula 2.00 03/03/17 16:00 98.7 97 18 165/72 100 I/O 03/03/17 03/03/17 03/03/17 03/04/17 03/04/17 03/04/17 07:00 15:00 23:00 07:00 15:00 23:00 Intake Total 120 ml 200 ml 100 ml Output Total 20 ml 1000 ml Balance -20 ml -880 ml 200 ml 100 ml Intake Oral 120 ml 200 ml 100 ml Drainage Total 20 ml Hemodialysis 1000 ml # Voids 1 0 0 # Bowel Movements 0 0 Result Diagram: 03/03/17 0850 03/03/17 0850 Objective Remarks GENERAL: Patient is no acute distress. CARDIOVASCULAR: Regular rate and rhythm without murmurs, gallops, or rubs. RESPIRATORY: Clear to auscultation. Breath sounds equal bilaterally. No wheezes , rales, or rhonchi. GASTROINTESTINAL: Abdomen soft, non-tender, nondistended. Normal active bowel sounds MUSCULOSKELETAL: Extremities without clubbing, cyanosis, or edema. NEURO: Alert & Oriented x4 to person, place, time, situation. Ricardo lower extremity paralysis. She will not move her lower extremity. UE 4+/5 Procedures Vas-Cath placement per IR cholecystostomy tube placement Medications and IVs Current Medications Ondansetron HCl (Zofran Inj) 4 mg ONCE ONCE IV PUSH Last administered on 16:37; Start 02/05/17 at 16:30; Stop 02/05/17 at 16:31; Status DC Morphine Sulfate 4 mg 4 mg ONCE ONCE IV PUSH Last administered on 02/05/17 17 :10; Start 02/05/17 at 17:00; Stop 02/05/17 at 17:01; Status DC Sodium Chloride 500 ml @ 500 mls/hr BOLUS ONCE IV Last administered on 17:10; Start 02/05/17 at 17:00; Stop 02/05/17 at 17:59; Status DC Piperacillin Sod/ Tazobactam Sod (Zosyn 3.375 Gm Premix) 50 ml @ 100 mls/hr ONCE ONCE IV Last administered on 02/05/17 18:52; Start 02/05/17 at 18:45; Stop 02/05/17 at 19:14; Status DC Morphine Sulfate (Morphine Inj) 2 mg ONCE ONCE IV PUSH Last administered on 19:00; Start 02/05/17 at 19:00; Stop 02/05/17 at 19:01; Status DC Dextrose (D50w (Vial) Inj) 50 ml UNSCH PRN IV HYPOGLYCEMIA-SEE COMMENTS; Start 02/05/17 at 19:30 Glucagon (Glucagon Inj) 1 mg UNSCH PRN OTHER HYPOGLYCEMIA-SEE COMMENTS; Start 02/05/17 at 19:30 Insulin Aspart 1 1 ACHS SLIDING SCALE SQ Last administered on 03/04/17 11:00 ; Start 02/05/17 at 21:00 Piperacillin Sod/ Tazobactam Sod 50 ml @ 100 mls/hr Q6H IV Last administered on 02/09/17 06:01; Start 02/06/17 at 00:00; Stop 02/09/17 at 16:32; Status DC Sodium Chloride (NS 1000 ml Inj) 1,000 ml @ 50 mls/hr Q20H IV Last administered on 02/06/17 04:19; Start 02/05/17 at 19:16; Status Hold Sodium Chloride (NS Flush) 2 ml UNSCH PRN IV FLUSH FLUSH AFTER USING IV ACCESS ; Start 02/05/17 at 19:30 Sodium Chloride (NS Flush) 2 ml BID IV FLUSH Last administered on 03/04/17 09: 28; Start 02/05/17 at 21:00 Ondansetron HCl (Zofran Inj) 4 mg Q6H PRN IVP NAUSEA OR VOMITING Last administered on 02/12/17 03:32; Start 02/05/17 at 19:30 Acetaminophen (Tylenol) 650 mg Q6H PRN PO FEVER; Start 02/05/17 at 19:30 Morphine Sulfate (Morphine Inj) 2 mg Q3H PRN IV Pain 6-10 Last administered on 02/06/17 07:59; Start 02/05/17 at 19:30; Stop 02/06/17 at 11:21; Status DC Oxycodone HCl (Roxicodone) 5 mg Q4H PRN PO PAIN SCALE 3 TO 5 Last administered on 02/12/17 22:10; Start 02/05/17 at 19:30 Senna/Docusate Sodium (Terese-Colace) 1 tab BID PO Last administered on 09:30; Start 02/05/17 at 21:00 Magnesium Hydroxide (Milk Of Magnesia Liq) 30 ml Q12H PRN PO MILD - MODERATE CONSTIPATION Last administered on 02/06/17 07:59; Start 02/05/17 at 19:30 Sennosides (Senokot) 17.2 mg Q12H PRN PO MODERATE - SEVERE CONSTIPATION; Start 02/05/17 at 19:30 Bisacodyl (Dulcolax Supp) 10 mg DAILY PRN RECTAL SEVERE CONSTIPATION; Start at 19:30 Lactulose (Lactulose Liq) 30 ml DAILY PRN PO SEVERE CONSITIPATION Last administered on 02/06/17 17:46; Start 02/05/17 at 19:30 Amlodipine Besylate (Norvasc) 10 mg DAILY PO Last administered on 02/06/17 07: 57; Start 02/06/17 at 09:00; Status Hold Carvedilol (Coreg) 3.125 mg Q12HR PO Last administered on 03/04/17 09:31; Start 02/05/17 at 21:00 Tizanidine HCl (Zanaflex) 4 mg TID PO Last administered on 03/04/17 11:49; Start 02/06/17 at 09:00 Insulin Detemir (Levemir Inj) 20 units DAILY SQ ; Start 02/06/17 at 09:00; Stop 02/06/17 at 09:00; Status DC Insulin Detemir (Levemir Inj) 10 units DAILY SQ Last administered on 03/04/17 09:40; Start 02/06/17 at 09:00 Promethazine HCl (Phenergan) 25 mg ONCE ONCE PO Last administered on 07:04; Start 02/06/17 at 07:00; Stop 02/06/17 at 07:01; Status DC Furosemide (Lasix Inj) 40 mg ONCE ONCE IV PUSH Last administered on 02/06/17 12:47; Start 02/06/17 at 11:00; Stop 02/06/17 at 11:01; Status DC Sodium Bicarbonate (Sodium Bicarbonate 8.4% Inj) 50 meq ONCE ONCE IV PUSH Last administered on 02/06/17 12:48; Start 02/06/17 at 12:00; Stop 02/06/17 at 12:01; Status DC Morphine Sulfate (Morphine Inj) 1 mg Q4HR PRN IV BREAKTHROUGH PAIN Last administered on 02/17/17 17:57; Start 02/06/17 at 12:00 Fentanyl Citrate (fentaNYL INJ) 250 mcg STK-MED ONCE .ROUTE Last administered on 02/06/17 15:18; Start 02/06/17 at 15:18; Stop 02/06/17 at 15:19; Status DC Iohexol (Omnipaque 350 Inj) 8 ml STK-MED ONCE .XX Last administered on 16:50; Start 02/06/17 at 16:50; Stop 02/06/17 at 16:51; Status DC Ketorolac Tromethamine 15 mg 15 mg ONCE ONCE IV PUSH ; Start 02/07/17 at 04:45 ; Stop 02/07/17 at 04:46; Status DC Sodium Chloride 1,000 ml @ 84 mls/hr [id number] IV Last administered on 15:00; Start 02/07/17 at 15:00; Stop 02/07/17 at 19:40; Status DC Sodium Bicarbonate 150 meq/Dextrose 1,150 ml @ 150 mls/hr Q7H40M IV Last administered on 02/09/17 13:14; Start 02/07/17 at 19:45; Stop 02/09/17 at 15:39 ; Status DC Bumetanide (Bumex Inj) 100 ml @ 4 mls/hr CONTINUOUS IV Last administered on 13:09; Start 02/08/17 at 13:00; Stop 02/09/17 at 15:39; Status DC Midodrine (Proamatine) 10 mg TID@07,12,17 PO Last administered on 03/04/17 11: 49; Start 02/08/17 at 17:00 Miscellaneous Information Patient in critical care unit? Ass... [id number] .XX ; Start 02/08/17 at 23:00 Chlorhexidine Gluconate (Chlorhexidine 2% Cloth) 3 pack DAILY@04 TOPICAL Last administered on 02/11/17 04:34; Start 02/09/17 at 04:00; Stop 02/13/17 at 04:01 ; Status DC Chlorhexidine Gluconate (Chlorhexidine 2% Cloth) 3 pack UNSCH PRN TOPICAL HYGIENIC CARE; Start 02/08/17 at 23:00; Stop 02/13/17 at 22:56; Status DC Heparin Sodium (Porcine) (*HEPARIN INJ Periprocedural ONLY) 10,000 units STK- MED ONCE .ROUTE Last administered on 02/09/17 15:10; Start 02/09/17 at 13:51; Stop 02/09/17 at 13:52; Status DC Sodium Chloride (NS Flush) UNSCH PRN IVF SEE PROTOCOL; Start 02/09/17 at 15:30 Heparin Sodium (Porcine) UNSCH PRN IV FLUSH SEE PROTOCOL; Start 02/09/17 at 15 :30 Sodium Chloride (NS 1000 ml Inj) 1,000 ml @ 0 mls/hr Q0M PRN IV For Prime & Rinse Back Last administered on 02/28/17 11:13; Start 02/09/17 at 15:39 Heparin Sodium (Porcine) 8000 units 8,000 units UNSCH PRN IVF WITH DIALYSIS; Start 02/09/17 at 15:45 Sodium Chloride 1,000 ml @ 200 mls/hr Q5H PRN IV WITH DIALYSIS; Start 02/09/17 at 15:39 Sodium Chloride (NS 1000 ml Inj) 1,000 ml @ 0 mls/hr Q0M PRN IV WITH DIALYSIS Last administered on 03/03/17 13:01; Start 02/09/17 at 15:39 Mannitol (Mannitol Inj) 12.5 gm UNSCH PRN IV WITH DIALYSIS Last administered on 02/20/17 15:13; Start 02/09/17 at 15:45 Albumin Human (Albumin 25% Inj) 25 gm UNSCH PRN IV WITH DIALYSIS Last administered on 02/24/17 12:27; Start 02/09/17 at 15:45 Sodium Chloride (NS Flush) 5 ml UNSCH PRN IV FLUSH WITH DIALYSIS Last administered on 02/14/17 10:15; Start 02/09/17 at 15:45 Heparin Sodium (Porcine) (Heparin Inj) UNSCH PRN .XX WITH DIALYSIS Last administered on 03/03/17 13:01; Start 02/09/17 at 15:45 Gentamicin Sulfate (Gentamicin (Dialysis) Inj) 20 mg UNSCH PRN IV WITH DIALYSIS Last administered on 03/03/17 13:00; Start 02/09/17 at 15:45 Ondansetron HCl (Zofran Inj) 4 mg UNSCH PRN IV WITH DIALYSIS Last administered on 02/21/17 18:11; Start 02/09/17 at 15:45 Acetaminophen (Tylenol) 650 mg UNSCH PRN PO for headach, temp > 101F; Start at 15:45 Diphenhydramine HCl (Benadryl) 25 mg UNSCH PRN PO for hives/itching/ anaphylaxis Last administered on 02/27/17 06:38; Start 02/09/17 at 15:45 Nitroglycerin (Nitrostat Sl) 0.4 mg UNSCH PRN SL CHEST PAIN; Start 02/09/17 at 15:45 Clonidine (Catapres) 0.1 mg UNSCH PRN PO for BP > 180/100 X 2 readings Last administered on 02/21/17 18:36; Start 02/09/17 at 15:45 Gelatin 1 foam 1 foam UNSCH PRN TOP SEE LABEL COMMENTS; Start 02/09/17 at 15:45 Piperacillin Sod/ Tazobactam Sod (Zosyn 2.25 Gm Premix) 50 ml @ 100 mls/hr Q12H IV Last administered on 02/17/17 05:16; Start 02/09/17 at 18:00; Stop 02/17 at 13:19; Status DC Melatonin (Melatonin) 5 mg HS PRN PO SLEEP Last administered on 03/01/17 21:12 ; Start 02/10/17 at 17:15 Epoetin [place] 88027 units 20,000 units MoWeFr SQ ; Start 02/13/17 at 14:00; Status Cancel Iron Sucrose/ Sodium Chloride (Venofer Inj/NS Inj) 105 ml @ 105 mls/hr DAILY IV Last administered on 02/14/17 10:13; Start 02/12/17 at 12:00; Stop at 09:59; Status DC Epoetin [place] (Epogen Inj) 20,000 units UNSCH PRN IV WITH DIALYSIS Last administered on 03/03/17 13:01; Start 02/12/17 at 10:15 Furosemide (Lasix Inj) 60 mg ONCE ONCE IV PUSH Last administered on 02/12/17 20:51; Start 02/12/17 at 20:45; Stop 02/12/17 at 20:48; Status DC Oxycodone HCl (Roxicodone) 10 mg Q4H PRN PO PAIN 6-10 Last administered on 03/04 01:06; Start 02/13/17 at 11:15 Albuterol Sulfate (Albuterol Neb) 1.25 mg Q4HR NEB PRN NEB SOB/WHEEZING Last administered on 02/20/17 05:29; Start 02/13/17 at 11:15 Furosemide (Lasix Inj) 40 mg DAILY IV PUSH Last administered on 02/20/17 10:03 ; Start 02/16/17 at 09:00; Stop 02/20/17 at 16:52; Status DC Furosemide (Lasix Inj) 40 mg ONCE ONCE IV PUSH Last administered on 02/15/17 13:18; Start 02/15/17 at 11:30; Stop 02/15/17 at 11:36; Status DC Heparin Sodium (Porcine) (Heparin Inj) 5,000 units Q12HR SQ Last administered on 03/04/17 09:31; Start 02/16/17 at 21:00 Aspirin (Aspirin Chew) 81 mg DAILY CHEW Last administered on 03/04/17 09:31; Start 02/17/17 at 09:00 Heparin Sodium (Porcine) (*HEPARIN INJ Periprocedural ONLY) 10,000 units STK- MED ONCE .ROUTE Last administered on 02/18/17 08:45; Start 02/18/17 at 09:11; Stop 02/18/17 at 09:12; Status DC Albuterol/ Ipratropium (Duoneb Neb) 1 ampule QID NEB NEB Last administered on 02/23/17 15:38; Start 02/19/17 at 20:00; Stop 02/23/17 at 20:00; Status DC Furosemide (Lasix Inj) 40 mg ONCE ONCE IV PUSH Last administered on 02/20/17 05:38; Start 02/20/17 at 05:30; Stop 02/20/17 at 05:34; Status DC Furosemide (Lasix Inj) 40 mg BID IV PUSH Last administered on 02/21/17 09:48; Start 02/20/17 at 21:00; Stop 02/21/17 at 10:03; Status DC Furosemide (Lasix Inj) 80 mg BID IV PUSH Last administered on 03/04/17 09:28; Start 02/21/17 at 21:00 Nystatin (Mycostatin Liq) 5 ml QID SWISH-SWAL Last administered on 03/03/17 20:45; Start 02/22/17 at 13:00 Lorazepam (Ativan Inj) 1 mg ONCE PRN IV PUSH Before MRI Scan Last administered on 02/24/17 18:14; Start 02/24/17 at 11:15; Stop 02/25/17 at 11:14; Status DC Iohexol (Omnipaque 350 Inj) 10 ml STK-MED ONCE .XX Last administered on 18:26; Start 02/27/17 at 18:26; Stop 02/27/17 at 18:27; Status DC Alteplase, Recombinant (Cathflo Activase Inj) 2 mg ONCE ONCE INTRACATH ; Start 03/01/17 at 12:00; Stop 03/01/17 at 12:01; Status DC A/P Problem List: (1) Cholecystitis ICD Code: K81.9 Status: Acute (2) Elevated LFTs ICD Code: R79.89 Status: Acute (3) Renal insufficiency ICD Code: N28.9 Status: Acute (4) CHF (congestive heart failure) ICD Code: I50.9 Status: Chronic (5) DM (diabetes mellitus) ICD Code: E11.9 Status: Acute Assessment and Plan 66-year-old female admitted secondary to cholecystitis. Status post cholecystostomy tube placement by IR. Complicated course by acute renal failure , anemia, CHF, pleural effusion. Acute cholecystitis Status post cholecystostomy tube placement by IR Status post completed Zosyn treatment. All cultures neg. Continue pain control Continue postop wound care Monitor biliary drain output, IR following. Dealt with Dr. Phillips IR over the phone in regards to the cholecystostomy tube. Patient will get a cholangiogram today and Dr. Phillips will discuss results with me. Post surgical candidate. General surgery signed off. Bilateral Lower Extremity paralysis MRI of lumbar spine, no cord compression.? ischemia per Neurology. Will need terminal operations supervisor care Neurology following Follow clinically Monitor for any progression Acute systolic CHF Pulm Edema pleural effusion: 80 mg IV Lasix BID daily 2D ECHO, EF of 30-35%. Daily aspirin Low sodium diet Monitor pleural effusions Pulmonology following Cardiology following. Not a good candidate for invasive procedures such as revascularization. Acute on chronic renal failure Metabolic acidosis secondary to acute renal failure Nephrology following Vas-Cath present Continue hemodialysis. On Lasix IV but does not have good urine output. Very minimal.. Watch for renal recovery Hypotension Resolved Continue midodrine as needed Follow blood pressures Diabetes mellitus Insulin sliding scale Levemir Diabetic diet Follow blood sugars Chronic pain syndrome Insomnia Melatonin 5 mg by mouth daily at bedtime PRN for insomnia Continue as needed pain control treatments Mild protein calorie Malnutrition Nutrition is consulted anemia of chronic disease Epogen and IV iron. Follow CBC Sacral wounds Superficial abrasions. Patient will need to be turned every 2 hours. Consult wound care nurse for further recommendation DVT prophylaxis SCDs heparin Discharge Planning Dealt with nurse shop manager Rebecca, caser in [place], IR Dr. Phillips, patient's daughter, patient's sister, patient's son, and patient herself in regards to diagnosis and management. Once final recommendations for cholecystomy tube is in place she can be discharge to SNF. Daughter requests for daily updates from provider. Her number is [phone] name is Mrs. Meza. Leonor Nielson MD Mar 04, 2017 14:45
--- NOTE | 2017-03-04 14:59 | PD.RAD ---
Post Procedure Progress Note Pre Procedure Diagnosis: (1) sepsis, cholecystitis with septic shock Post Procedure Diagnosis: (1) Cholecystitis Procedure Date: Mar 04, 2017 Supervising Radiologist: Kolby Hughes JR Proceduralist/Assist: Frank Osman RT(R), Maria Guadalupe Grace RT(R) Anesthesia: Other Plan of Activity Patient to Unit: Nursing Unit Patient Condition: Good Additional Comments: Injection of contrast into cholecystostomy tube shows the tube to be patent and in good position. Gallbladder remains abnormal and cystic duct occluded. Placed accordion suction device on drain to facilitate drainage. See PACS Report for procedural detail/treatment Jr. Saul,Kolby Moore MD Mar 04, 2017 14:58
--- NOTE | 2017-03-04 15:12 | RADRPT ---
EXAM DATE/TIME: 03/04/2017 14:09 [facility] COMPARISON: No previous studies available for comparison. INDICATIONS : Patient with history of cholecystitis in need of cholangiogram. MEDICAL HISTORY : HTN, CHF, CKD Stage IV, Chronic anemia, Thalassemia, Diabetes, Chronic back pain SURGICAL HISTORY : Percutaneous cholecystostomy, Dialysis catheter placement ENCOUNTER: Subsequent ACUITY: 1 month PAIN SCORE: 0/10 FLUORO TIME: 0.2 minutes IMAGE SERIES: 2 CONTRAST: 10 cc Omnipaque (iohexol) 350 TECH NOTE: 140CC ROJAS Stanley MR#:[id number] DOB/ Exam Dt/Desc: March 04, 2017CHOLANGIOGRAM THRU EXISTING CATHETER PROCEDURE : 1. cholangiogram through existing tube The risks, benefits and alternatives to the procedure were explained and verbal and written consent w as obtained. The site was prepped in sterile fashion. Full sterile technique was used, including ca p, mask, sterile gloves and gown and a large sterile sheet. Hand hygiene and 2% chlorhexidine and/or betadine/alcohol prep was utilized per protocol for cutaneous antisepsis. Aspiration on the cholecystostomy tube yields bile. Injection of contrast shows a markedly abnormal g allbladder lumen with multiple stones an irregular wall. The cystic duct remains occluded. The cholec ystostomy tube is in good position. CONCLUSION: Cholecystostomy tube in good position. Gallbladder remains abnormal with an occluded cystic duct. An accordion suction device was applied to the catheter to aid in drainage. Kolby Hughes Jr., MD on March 04, 2017 at 15:02 Board Certified Radiologist. This report was verified electronically.
--- NOTE | 2017-03-04 17:17 | HHI.NPPN ---
Subjective History of Present Illness 66-year-old female with a past medical history of hypertension, diabetes mellitus, chronic kidney disease, anemia and chronic back pain, who was admitted because of abdominal pain, nausea and vomiting. I was called to see the patient because of elevated BUN and creatinine. The patient has known history of chronic kidney disease and she had acute kidney injury. Additional Remarks Patient is alert, has mild SOB, with nasal cannula. Review of Systems General Constitutional: Fatigue Objective Data Data 03/03/17 03/04/17 19:00 07:00 Intake Total 120 ml 300 ml Output Total 1000 ml Balance -880 ml 300 ml Intake Oral 120 ml 300 ml Hemodialysis 1000 ml # Voids 1 0 # Bowel Movements 0 0 Vital Signs Date Time Temp Pulse Resp B/P Pulse Ox O2 Delivery O2 Flow Rate FiO2 03/04/17 16:00 97.6 73 18 153/69 100 03/04/17 12:50 Nasal Cannula 2.00 03/04/17 12:00 98.8 78 18 101/50 95 03/04/17 11:10 95 Room Air 03/04/17 08:00 98.6 84 16 122/60 98 03/04/17 07:05 Nasal Cannula 2.00 03/04/17 04:00 98.7 88 18 126/66 100 03/04/17 04:00 Nasal Cannula 2.00 03/04/17 00:00 Nasal Cannula 2.00 03/04/17 00:00 98.5 90 20 139/82 96 03/03/17 20:00 Nasal Cannula 2.00 03/03/17 20:00 99.2 92 18 150/70 100 03/03/17 20:00 85 03/03/17 18:28 Nasal Cannula 2.00 -: 03/03/17 0850 03/03/17 0850 Physical Exam General Appearance Remarks Mild resp. distress. Eyes Eye Exam: Pupils Equal Throat Throat Exam: Oral Mucosa [place] & Moist Neck Neck Exam: Neck Supple Pulmonary Resp Exam: Breath Sounds Equal, No Distress, Rhonchi, Decreased Bases, Diminished Breath Sounds Cardiology CV Exam: Regular, Normal Sinus Rhythm Gastrointestinal/Abdomen GI Exam: Soft, Bowel Sounds Present, Distended Extremeties Extremities Exam: Trace Edema Neurologic Neuro Exam: Alert, Awake, Oriented Psychiatric Psych Exam: Appropriate Responses Assessment/Plan Assessment Summary: GRADY/Acute Renal Failure, Hypotension, CKD Stage IV Problem List: (1) Acute kidney failure Plan: Urine out put is decreased again, on Lasix. Creatinine still elevated. Continue dialysis support as needed. Avoid nephrotoxic agents. On Lasix. to 80 mg IV Q12. HD done yesterday. Her GFR was around 18 in November, possibly has End stage renal disease,. Continue PT and out patient HD arrangement. HD will be in AM, D/W the son about out patient HD. (2) Diabetes mellitus (3) CHF (congestive heart failure) (4) Cholecystitis (5) Gallstones (6) Elevated LFTs (7) Anemia (8) Stage 4 chronic kidney disease Problem Qualifiers (1) Anemia: Svitlana Cook MD Mar 04, 2017 17:17
[2017-03-05] VITALS (7 sets, daily range): BP systolic 100–140; BP diastolic 55–74; PULSE 82–98; RESP 10–20; TEMP 98.3–99.9; O2SAT 98–100
[2017-03-05] MEDS: ONDANSETRON HCL 4 MG/2 ML VIAL IVP PRN ×2 (00:32→12:08)
[2017-03-05] MEDS: MIDODRINE 5 MG TAB PO SCH ×3 (06:03→16:47)
[2017-03-05] MEDS: INSULIN ASPART SUPPLEMENTAL SCALE SQ SCH ×4 (06:03→22:33)
[2017-03-05] MEDS: NYSTATIN SUSP 500,000 U/5 ML CUP SWISH-SWAL SCH ×5 (09:00→22:20)
--- NOTE | 2017-03-05 10:53 | HHI.NPPN ---
Subjective History of Present Illness 66-year-old female with a past medical history of hypertension, diabetes mellitus, chronic kidney disease, anemia and chronic back pain, who was admitted because of abdominal pain, nausea and vomiting. I was called to see the patient because of elevated BUN and creatinine. The patient has known history of chronic kidney disease and she had acute kidney injury. Additional Remarks Patient is alert, now on HD, with nasal cannula. Review of Systems General Constitutional: Fatigue Objective Data Data 03/04/17 03/05/17 18:59 06:59 Intake Total 480 ml 300 ml Output Total 550 ml Balance 480 ml -250 ml Intake Oral 480 ml 300 ml Output Urine Total 550 ml # Voids 2 2 # Bowel Movements 0 0 Vital Signs Date Time Temp Pulse Resp B/P Pulse Ox O2 Delivery O2 Flow Rate FiO2 03/05/17 07:35 Nasal Cannula 2.00 03/05/17 07:35 97 03/05/17 03:52 99.9 96 16 100/57 98 03/05/17 00:28 99.6 93 16 135/63 100 03/05/17 00:00 Nasal Cannula 2.00 03/04/17 20:05 77 03/04/17 20:00 Nasal Cannula 2.00 03/04/17 19:58 98.1 74 16 121/71 100 03/04/17 16:00 97.6 73 18 153/69 100 03/04/17 12:50 Nasal Cannula 2.00 03/04/17 12:00 98.8 78 18 101/50 95 03/04/17 11:10 95 Room Air -: 03/03/17 0850 03/03/17 0850 Physical Exam General Appearance Remarks Mild resp. distress. Eyes Eye Exam: Pupils Equal Throat Throat Exam: Oral Mucosa [place] & Moist Neck Neck Exam: Neck Supple Pulmonary Resp Exam: Breath Sounds Equal, No Distress, Rhonchi, Decreased Bases, Diminished Breath Sounds Cardiology CV Exam: Regular, Normal Sinus Rhythm Gastrointestinal/Abdomen GI Exam: Soft, Bowel Sounds Present, Distended Extremeties Extremities Exam: Trace Edema Neurologic Neuro Exam: Alert, Awake, Oriented Psychiatric Psych Exam: Appropriate Responses Assessment/Plan Assessment Summary: GRADY/Acute Renal Failure, Hypotension, CKD Stage IV Problem List: (1) Acute kidney failure Plan: Urine out put is decreased again, on Lasix. Creatinine still elevated. Continue dialysis support as needed. Avoid nephrotoxic agents. On Lasix. to 80 mg IV Q12. HD now, there is no improvement in renal function. Possibly she has end stage renal disease. I will get PermCath. She is not a good candidate for skilled nursing out patient HD due to bed ridden status. I will discuss with her family. (2) Diabetes mellitus (3) CHF (congestive heart failure) (4) Cholecystitis (5) Gallstones (6) Elevated LFTs (7) Anemia (8) Stage 4 chronic kidney disease Problem Qualifiers (1) Anemia: Svitlana Cook MD Mar 05, 2017 10:53
[2017-03-05] MEDS: HEPARIN SODIUM - SQ 10,000 UNITS/ML VIAL SQ SCH ×2 (12:08→22:20)
[2017-03-05] MEDS: FUROSEMIDE 40 MG/4 ML VIAL IV PUSH SCH ×2 (12:09→22:22)
[2017-03-05] MEDS: SODIUM CHLORIDE 0.9% FLUSH 10 ML FLUSH IV FLUSH SCH ×2 (12:09→21:00)
[2017-03-05] MEDS: ASPIRIN 81 MG CHEW TAB CHEW SCH (12:09)
[2017-03-05] MEDS: CARVEDILOL 3.125 MG TAB PO SCH ×2 (12:09→22:21)
[2017-03-05] MEDS: INSULIN DETEMIR 100 UNITS/ML VIAL SQ SCH (12:31)
[2017-03-05] MEDS: DOCUSATE SODIUM 50 MG/SENNA 8.6 MG TAB PO SCH ×2 (12:31→22:20)
--- NOTE | 2017-03-05 14:34 | HHI.PR ---
Subjective Remarks Follow-up for cholecystitis and acute renal failure Patient was seen after dialysis. She said that she had episode of emesis this morning. Should one episode and dialysis which was confirmed by the nurse. Details of emesis was not given. Patient denies any pain. Patient has not had a bowel movement. She stated that she did not fill well and does not want to get the PermCath today. Dealt with patient's nurse I also dealt with wound care seen and she stated that those are due to moisture. She recommended air drying with topical ointment. Objective Vitals Vital Signs Date Time Temp Pulse Resp B/P Pulse Ox O2 Delivery O2 Flow Rate FiO2 03/05/17 12:00 99.3 98 20 121/55 100 03/05/17 07:35 Nasal Cannula 2.00 03/05/17 07:35 97 03/05/17 03:52 99.9 96 16 100/57 98 03/05/17 00:28 99.6 93 16 135/63 100 03/05/17 00:00 Nasal Cannula 2.00 03/04/17 20:05 77 03/04/17 20:00 Nasal Cannula 2.00 03/04/17 19:58 98.1 74 16 121/71 100 03/04/17 16:00 97.6 73 18 153/69 100 I/O 03/04/17 03/04/17 03/04/17 03/05/17 03/05/17 03/05/17 06:59 14:59 22:59 06:59 14:59 22:59 Intake Total 100 ml 480 ml 200 ml 100 ml 120 ml Output Total 550 ml 1000 ml Balance 100 ml 480 ml 200 ml -450 ml -880 ml Intake Oral 100 ml 480 ml 200 ml 100 ml 120 ml Output Urine Total 550 ml Hemodialysis 1000 ml # Voids 0 2 2 # Bowel Movements 0 0 0 Result Diagram: 03/03/17 0850 03/03/17 0850 Objective Remarks GENERAL: Patient is no acute distress. CARDIOVASCULAR: Regular rate and rhythm without murmurs, gallops, or rubs. RESPIRATORY: Clear to auscultation. Breath sounds equal bilaterally. No wheezes , rales, or rhonchi. GASTROINTESTINAL: Abdomen soft, non-tender, nondistended. Normal active bowel sounds MUSCULOSKELETAL: Extremities without clubbing, cyanosis, or edema. NEURO: Alert & Oriented x4 to person, place, time, situation. Ricardo lower extremity paralysis. She will not move her lower extremity. UE 4+/5 Procedures Vas-Cath placement per IR cholecystostomy tube placement Medications and IVs Current Medications Ondansetron HCl (Zofran Inj) 4 mg ONCE ONCE IV PUSH Last administered on 16:37; Start 02/05/17 at 16:30; Stop 02/05/17 at 16:31; Status DC Morphine Sulfate 4 mg 4 mg ONCE ONCE IV PUSH Last administered on 02/05/17 17 :10; Start 02/05/17 at 17:00; Stop 02/05/17 at 17:01; Status DC Sodium Chloride 500 ml @ 500 mls/hr BOLUS ONCE IV Last administered on 17:10; Start 02/05/17 at 17:00; Stop 02/05/17 at 17:59; Status DC Piperacillin Sod/ Tazobactam Sod (Zosyn 3.375 Gm Premix) 50 ml @ 100 mls/hr ONCE ONCE IV Last administered on 02/05/17 18:52; Start 02/05/17 at 18:45; Stop 02/05/17 at 19:14; Status DC Morphine Sulfate (Morphine Inj) 2 mg ONCE ONCE IV PUSH Last administered on 19:00; Start 02/05/17 at 19:00; Stop 02/05/17 at 19:01; Status DC Dextrose (D50w (Vial) Inj) 50 ml UNSCH PRN IV HYPOGLYCEMIA-SEE COMMENTS; Start 02/05/17 at 19:30 Glucagon (Glucagon Inj) 1 mg UNSCH PRN OTHER HYPOGLYCEMIA-SEE COMMENTS; Start 02/05/17 at 19:30 Insulin Aspart 1 1 ACHS SLIDING SCALE SQ Last administered on 03/04/17 21:04 ; Start 02/05/17 at 21:00 Piperacillin Sod/ Tazobactam Sod 50 ml @ 100 mls/hr Q6H IV Last administered on 02/09/17 06:01; Start 02/06/17 at 00:00; Stop 02/09/17 at 16:32; Status DC Sodium Chloride (NS 1000 ml Inj) 1,000 ml @ 50 mls/hr Q20H IV Last administered on 02/06/17 04:19; Start 02/05/17 at 19:16; Status Hold Sodium Chloride (NS Flush) 2 ml UNSCH PRN IV FLUSH FLUSH AFTER USING IV ACCESS ; Start 02/05/17 at 19:30 Sodium Chloride (NS Flush) 2 ml BID IV FLUSH Last administered on 03/05/17 12: 09; Start 02/05/17 at 21:00 Ondansetron HCl (Zofran Inj) 4 mg Q6H PRN IVP NAUSEA OR VOMITING Last administered on 03/05/17 12:08; Start 02/05/17 at 19:30 Acetaminophen (Tylenol) 650 mg Q6H PRN PO FEVER; Start 02/05/17 at 19:30 Morphine Sulfate (Morphine Inj) 2 mg Q3H PRN IV Pain 6-10 Last administered on 02/06/17 07:59; Start 02/05/17 at 19:30; Stop 02/06/17 at 11:21; Status DC Oxycodone HCl (Roxicodone) 5 mg Q4H PRN PO PAIN SCALE 3 TO 5 Last administered on 02/12/17 22:10; Start 02/05/17 at 19:30 Senna/Docusate Sodium (Terese-Colace) 1 tab BID PO Last administered on 20:58; Start 02/05/17 at 21:00 Magnesium Hydroxide (Milk Of Magnesia Liq) 30 ml Q12H PRN PO MILD - MODERATE CONSTIPATION Last administered on 02/06/17 07:59; Start 02/05/17 at 19:30 Sennosides (Senokot) 17.2 mg Q12H PRN PO MODERATE - SEVERE CONSTIPATION; Start 02/05/17 at 19:30 Bisacodyl (Dulcolax Supp) 10 mg DAILY PRN RECTAL SEVERE CONSTIPATION; Start at 19:30 Lactulose (Lactulose Liq) 30 ml DAILY PRN PO SEVERE CONSITIPATION Last administered on 02/06/17 17:46; Start 02/05/17 at 19:30 Amlodipine Besylate (Norvasc) 10 mg DAILY PO Last administered on 02/06/17 07: 57; Start 02/06/17 at 09:00; Status Hold Carvedilol (Coreg) 3.125 mg Q12HR PO Last administered on 03/05/17 12:09; Start 02/05/17 at 21:00 Tizanidine HCl (Zanaflex) 4 mg TID PO Last administered on 03/05/17 12:11; Start 02/06/17 at 09:00 Insulin Detemir (Levemir Inj) 20 units DAILY SQ ; Start 02/06/17 at 09:00; Stop 02/06/17 at 09:00; Status DC Insulin Detemir (Levemir Inj) 10 units DAILY SQ Last administered on 03/05/17 12:31; Start 02/06/17 at 09:00 Promethazine HCl (Phenergan) 25 mg ONCE ONCE PO Last administered on 07:04; Start 02/06/17 at 07:00; Stop 02/06/17 at 07:01; Status DC Furosemide (Lasix Inj) 40 mg ONCE ONCE IV PUSH Last administered on 02/06/17 12:47; Start 02/06/17 at 11:00; Stop 02/06/17 at 11:01; Status DC Sodium Bicarbonate (Sodium Bicarbonate 8.4% Inj) 50 meq ONCE ONCE IV PUSH Last administered on 02/06/17 12:48; Start 02/06/17 at 12:00; Stop 02/06/17 at 12:01; Status DC Morphine Sulfate (Morphine Inj) 1 mg Q4HR PRN IV BREAKTHROUGH PAIN Last administered on 02/17/17 17:57; Start 02/06/17 at 12:00 Fentanyl Citrate (fentaNYL INJ) 250 mcg STK-MED ONCE .ROUTE Last administered on 02/06/17 15:18; Start 02/06/17 at 15:18; Stop 02/06/17 at 15:19; Status DC Iohexol (Omnipaque 350 Inj) 8 ml STK-MED ONCE .XX Last administered on 16:50; Start 02/06/17 at 16:50; Stop 02/06/17 at 16:51; Status DC Ketorolac Tromethamine 15 mg 15 mg ONCE ONCE IV PUSH ; Start 02/07/17 at 04:45 ; Stop 02/07/17 at 04:46; Status DC Sodium Chloride 1,000 ml @ 84 mls/hr [id number] IV Last administered on 15:00; Start 02/07/17 at 15:00; Stop 02/07/17 at 19:40; Status DC Sodium Bicarbonate 150 meq/Dextrose 1,150 ml @ 150 mls/hr Q7H40M IV Last administered on 02/09/17 13:14; Start 02/07/17 at 19:45; Stop 02/09/17 at 15:39 ; Status DC Bumetanide (Bumex Inj) 100 ml @ 4 mls/hr CONTINUOUS IV Last administered on 13:09; Start 02/08/17 at 13:00; Stop 02/09/17 at 15:39; Status DC Midodrine (Proamatine) 10 mg TID@07,12,17 PO Last administered on 03/05/17 12: 09; Start 02/08/17 at 17:00 Miscellaneous Information Patient in critical care unit? Ass... Q361D .XX ; Start 02/08/17 at 23:00 Chlorhexidine Gluconate (Chlorhexidine 2% Cloth) 3 pack DAILY@04 TOPICAL Last administered on 02/11/17 04:34; Start 02/09/17 at 04:00; Stop 02/13/17 at 04:01 ; Status DC Chlorhexidine Gluconate (Chlorhexidine 2% Cloth) 3 pack UNSCH PRN TOPICAL HYGIENIC CARE; Start 02/08/17 at 23:00; Stop 02/13/17 at 22:56; Status DC Heparin Sodium (Porcine) (*HEPARIN INJ Periprocedural ONLY) 10,000 units STK- MED ONCE .ROUTE Last administered on 02/09/17 15:10; Start 02/09/17 at 13:51; Stop 02/09/17 at 13:52; Status DC Sodium Chloride (NS Flush) UNSCH PRN IVF SEE PROTOCOL; Start 02/09/17 at 15:30 Heparin Sodium (Porcine) UNSCH PRN IV FLUSH SEE PROTOCOL; Start 02/09/17 at 15 :30 Sodium Chloride (NS 1000 ml Inj) 1,000 ml @ 0 mls/hr Q0M PRN IV For Prime & Rinse Back Last administered on 02/28/17 11:13; Start 02/09/17 at 15:39 Heparin Sodium (Porcine) 8000 units 8,000 units UNSCH PRN IVF WITH DIALYSIS; Start 02/09/17 at 15:45 Sodium Chloride 1,000 ml @ 200 mls/hr Q5H PRN IV WITH DIALYSIS; Start 02/09/17 at 15:39 Sodium Chloride (NS 1000 ml Inj) 1,000 ml @ 0 mls/hr Q0M PRN IV WITH DIALYSIS Last administered on 03/03/17 13:01; Start 02/09/17 at 15:39 Mannitol (Mannitol Inj) 12.5 gm UNSCH PRN IV WITH DIALYSIS Last administered on 02/20/17 15:13; Start 02/09/17 at 15:45 Albumin Human (Albumin 25% Inj) 25 gm UNSCH PRN IV WITH DIALYSIS Last administered on 02/24/17 12:27; Start 02/09/17 at 15:45 Sodium Chloride (NS Flush) 5 ml UNSCH PRN IV FLUSH WITH DIALYSIS Last administered on 02/14/17 10:15; Start 02/09/17 at 15:45 Heparin Sodium (Porcine) (Heparin Inj) UNSCH PRN .XX WITH DIALYSIS Last administered on 03/03/17 13:01; Start 02/09/17 at 15:45 Gentamicin Sulfate (Gentamicin (Dialysis) Inj) 20 mg UNSCH PRN IV WITH DIALYSIS Last administered on 03/03/17 13:00; Start 02/09/17 at 15:45 Ondansetron HCl (Zofran Inj) 4 mg UNSCH PRN IV WITH DIALYSIS Last administered on 02/21/17 18:11; Start 02/09/17 at 15:45 Acetaminophen (Tylenol) 650 mg UNSCH PRN PO for headach, temp > 101F; Start at 15:45 Diphenhydramine HCl (Benadryl) 25 mg UNSCH PRN PO for hives/itching/ anaphylaxis Last administered on 02/27/17 06:38; Start 02/09/17 at 15:45 Nitroglycerin (Nitrostat Sl) 0.4 mg UNSCH PRN SL CHEST PAIN; Start 02/09/17 at 15:45 Clonidine (Catapres) 0.1 mg UNSCH PRN PO for BP > 180/100 X 2 readings Last administered on 02/21/17 18:36; Start 02/09/17 at 15:45 Gelatin 1 foam 1 foam UNSCH PRN TOP SEE LABEL COMMENTS; Start 02/09/17 at 15:45 Piperacillin Sod/ Tazobactam Sod (Zosyn 2.25 Gm Premix) 50 ml @ 100 mls/hr Q12H IV Last administered on 02/17/17 05:16; Start 02/09/17 at 18:00; Stop 02/17 at 13:19; Status DC Melatonin (Melatonin) 5 mg HS PRN PO SLEEP Last administered on 03/01/17 21:12 ; Start 02/10/17 at 17:15 Epoetin Moreno 81042 units 20,000 units MoWeFr SQ ; Start 02/13/17 at 14:00; Status Cancel Iron Sucrose/ Sodium Chloride (Venofer Inj/NS Inj) 105 ml @ 105 mls/hr DAILY IV Last administered on 02/14/17 10:13; Start 02/12/17 at 12:00; Stop at 09:59; Status DC Epoetin Moreno (Epogen Inj) 20,000 units UNSCH PRN IV WITH DIALYSIS Last administered on 03/03/17 13:01; Start 02/12/17 at 10:15 Furosemide (Lasix Inj) 60 mg ONCE ONCE IV PUSH Last administered on 02/12/17 20:51; Start 02/12/17 at 20:45; Stop 02/12/17 at 20:48; Status DC Oxycodone HCl (Roxicodone) 10 mg Q4H PRN PO PAIN 6-10 Last administered on 03/05 12:20; Start 02/13/17 at 11:15 Albuterol Sulfate (Albuterol Neb) 1.25 mg Q4HR NEB PRN NEB SOB/WHEEZING Last administered on 02/20/17 05:29; Start 02/13/17 at 11:15 Furosemide (Lasix Inj) 40 mg DAILY IV PUSH Last administered on 02/20/17 10:03 ; Start 02/16/17 at 09:00; Stop 02/20/17 at 16:52; Status DC Furosemide (Lasix Inj) 40 mg ONCE ONCE IV PUSH Last administered on 02/15/17 13:18; Start 02/15/17 at 11:30; Stop 02/15/17 at 11:36; Status DC Heparin Sodium (Porcine) (Heparin Inj) 5,000 units Q12HR SQ Last administered on 03/04/17 20:59; Start 02/16/17 at 21:00 Aspirin (Aspirin Chew) 81 mg DAILY CHEW Last administered on 03/05/17 12:09; Start 02/17/17 at 09:00 Heparin Sodium (Porcine) (*HEPARIN INJ Periprocedural ONLY) 10,000 units STK- MED ONCE .ROUTE Last administered on 02/18/17 08:45; Start 02/18/17 at 09:11; Stop 02/18/17 at 09:12; Status DC Albuterol/ Ipratropium (Duoneb Neb) 1 ampule QID NEB NEB Last administered on 02/23/17 15:38; Start 02/19/17 at 20:00; Stop 02/23/17 at 20:00; Status DC Furosemide (Lasix Inj) 40 mg ONCE ONCE IV PUSH Last administered on 02/20/17 05:38; Start 02/20/17 at 05:30; Stop 02/20/17 at 05:34; Status DC Furosemide (Lasix Inj) 40 mg BID IV PUSH Last administered on 02/21/17 09:48; Start 02/20/17 at 21:00; Stop 02/21/17 at 10:03; Status DC Furosemide (Lasix Inj) 80 mg BID IV PUSH Last administered on 03/05/17 12:09; Start 02/21/17 at 21:00 Nystatin (Mycostatin Liq) 5 ml QID SWISH-SWAL Last administered on 03/04/17 20:59; Start 02/22/17 at 13:00 Lorazepam (Ativan Inj) 1 mg ONCE PRN IV PUSH Before MRI Scan Last administered on 02/24/17 18:14; Start 02/24/17 at 11:15; Stop 02/25/17 at 11:14; Status DC Iohexol (Omnipaque 350 Inj) 10 ml STK-MED ONCE .XX Last administered on 18:26; Start 02/27/17 at 18:26; Stop 02/27/17 at 18:27; Status DC Alteplase, Recombinant (Cathflo Activase Inj) 2 mg ONCE ONCE INTRACATH ; Start 03/01/17 at 12:00; Stop 03/01/17 at 12:01; Status DC Iohexol (Omnipaque 350 Inj) 10 ml STK-MED ONCE .XX Last administered on t 14:25; Start 03/04/17 at 14:42; Stop 03/04/17 at 14:43; Status DC A/P Problem List: (1) Cholecystitis ICD Code: K81.9 Status: Acute (2) Elevated LFTs ICD Code: R79.89 Status: Acute (3) Renal insufficiency ICD Code: N28.9 Status: Acute (4) CHF (congestive heart failure) ICD Code: I50.9 Status: Chronic (5) DM (diabetes mellitus) ICD Code: E11.9 Status: Acute Assessment and Plan 66-year-old female admitted secondary to cholecystitis. Status post cholecystostomy tube placement by IR. Complicated course by acute renal failure , anemia, CHF, pleural effusion. Acute cholecystitis Status post cholecystostomy tube placement by IR Status post completed Zosyn treatment. All cultures neg. Continue pain control Continue postop wound care Monitor biliary drain output, IR following. Minimal output today. Dealt with Dr. Hughes from IR over the phone and stated that if patient doesn't have good amounts of output will consider replacement of tube. Post surgical candidate. General surgery signed off. Emesis in a.m. on 03/05 Patient told to save vomit for the nurse so it can be evaluated. Will check a KUB to make sure there is no ileus or small bowel obstruction. Patient has not had a bowel movement for many days. She is on Terese-Colace. We' ll give her a suppository. We'll also check labs. d/w her nurse Constipation Patient on Terese-Colace continue Terese-Colace. We will give a dosage of Dulcolax suppository. Bilateral Lower Extremity paralysis MRI of lumbar spine, no cord compression.? ischemia per Neurology. Will need termite technician care Neurology following Follow clinically Monitor for any progression Acute systolic CHF Pulm Edema pleural effusion: 80 mg IV Lasix BID daily 2D ECHO, EF of 30-35%. Daily aspirin Low sodium diet Monitor pleural effusions Pulmonology following Cardiology following. Not a good candidate for invasive procedures such as revascularization. Acute on chronic renal failure Metabolic acidosis secondary to acute renal failure Nephrology following Vas-Cath present. Patient refused a PermCath today said that she did not fill well. She stated that it depends how she feels if she will get one tomorrow. Patient's nurse Iwona was at the bedside during this interview. Continue hemodialysis. On Lasix IV but does not have good urine output. Very minimal. Watch for renal recovery Hypotension Resolved Continue midodrine as needed Follow blood pressures Diabetes mellitus Insulin sliding scale Levemir Diabetic diet Follow blood sugars Chronic pain syndrome Insomnia Melatonin 5 mg by mouth daily at bedtime PRN for insomnia Continue as needed pain control treatments Mild protein calorie Malnutrition Nutrition is consulted anemia of chronic disease Epogen and IV iron. Follow CBC Sacral wounds Superficial abrasions. Per wound care most likely secondary to moisture. Recommend aeration. DVT prophylaxis SCDs heparin. will hold AM dose of heparin. Discharge Planning Dealt with patient nurse and her daughter Mrs. Meza. Daughter requests for daily updates from provider. Her number is [phone] name is Mrs. Meza. Leonor Nielson MD Mar 05, 2017 14:34 Leonor Nielson MD Mar 05, 2017 14:34
--- NOTE | 2017-03-05 14:40 | PD.WCN.NOT ---
Wound Consult Description: Three areas of moisture related partial thickness skin loss to gluteal cleft and bilateral buttocks Communicated with: ESPERANZA Lawson and Call place to Doctor [place] for orders Recommendation: Please cleanse buttock area gently with soap and water, gently pat dry and apply thick layer of calazime barrier cream BID and PRN. Please leave open to air. Please do not stack incontinence ultrasorb pads under patient. Please use one, if more than one is needed please stagger pads Additional Information: Patient seen on [address] [place] [address] for evaluation of wound sacral wound management. Patient turned to L side with maximum assistance of Lulu MATA [address] [place] [address] and medical underwriter. Removed adhesive foam dressing in place to reveal 3 areas of partial thickness skin loss to L medial buttock, R medial buttock and gluteal cleft. All wounds are noted with jagged poorly defined wound margins and are all 100% pink, with surrounding denuded, macerated and peeling skin.Etiology appears to be moisture, Not pressure.Patient is also noted with [address], removed soiled pads. Cleansed patient gently with soap and water and pat dry. Applied thick layer of barrier cream and left buttock open to air. Repositioned patient with pillow placed under L side to offload pressure. Patient is laying on [facility] bed, with 2 staggered clean ultrasorb pads in place for incontinence. [place] [facility] Mar 05, 2017 14:40
[2017-03-05] MEDS: GENTAMICIN SULFATE (DIALYSIS USE ONLY) 20 MG/2 ML VIAL IV PRN (17:24)
[2017-03-05] MEDS: HEPARIN SODIUM - IV 10,000 UNITS/10 ML VIAL PRN (17:24)
[2017-03-05] MEDS: SODIUM CHLOR 0.9% 1000 ML INJ 1,000 ML IV PRN (17:24)
[2017-03-05] MEDS: EPOETIN ALFA 20,000 UNITS/ML VIAL IV PRN (17:25)
--- NOTE | 2017-03-05 18:35 | RADRPT ---
EXAM DATE/TIME: 03/05/2017 17:49 [facility] COMPARISON: No previous studies available for comparison. INDICATIONS : Abdominal pain. Evaluate for obstruction. MEDICAL HISTORY : Renal disease, end stage. SURGICAL HISTORY : Cholecystostomy. Retina surgery. ENCOUNTER: Subsequent ACUITY: 4 - 6 days PAIN SCORE: 0/10 LOCATION: FINDINGS: Cholecystostomy tube present on the right. Mild constipation. No evidence for obstruction. No free ai r. No acute bony abnormality. CONCLUSION: 1. No evidence for obstruction. Mild constipation. Dmitriy Ramirez MD on March 05, 2017 at 18:32 Board Certified Radiologist. This report was verified electronically.
[2017-03-05 22:36] LABS: AUTOMATED NEUTROPHIL # 5.6 TH/MM3 (1.8-7.7); BASOPHIL # 0.1 TH/MM3 (0-0.2); BASOPHIL % 0.8 % (0.0-2.0); EOSINOPHIL # 0.7 TH/MM3 (0-0.4); EOSINOPHIL % 8.1 % (0.0-4.0); HEMATOCRIT 26.6 % (35.0-46.0); HEMO FLAGS DIFF FINAL; LYMPH % 20.3 % (9.0-44.0); LYMPHOCYTE # 1.9 TH/MM3 (1.0-4.8); MEAN CELL VOLUME 69.7 FL (80.0-100.0); MEAN CORPUSCULAR HEMOGLOBIN 21.2 PG (27.0-34.0); MEAN CORPUSCULAR HGB CONC 30.4 % (32.0-36.0); MONO % 9.4 % (0.0-8.0); NEUT % 61.4 % (16.0-70.0); PLATELET COUNT 326 TH/MM3 (150-450); RED BLOOD COUNT 3.81 MIL/MM3 (4.00-5.30); RED CELL DISTRIBUTION WIDTH 17.7 % (11.6-17.2); WHITE BLOOD COUNT 9.1 TH/MM3 (4.0-11.0)
[2017-03-05 22:52] LABS: ALT (GPT) 22 U/L (10-53); ANION GAP 9 MEQ/L (5-15); AST (GOT) 34 U/L (15-37); BICARBONATE 31.7 MEQ/L (21.0-32.0); BLOOD UREA NITROGEN 34 MG/DL (7-18); CHLORIDE 93 MEQ/L (98-107); GLOMERULAR FILTRATION RATE 10 ML/MIN (>89); POTASSIUM 4.3 MEQ/L (3.5-5.1); SODIUM (NA) 134 MEQ/L (136-145)
[2017-03-05 22:56] LABS: ALKALINE PHOSPHATASE 97 U/L (45-117); TOTAL BILIRUBIN ADULT 0.3 MG/DL (0.2-1.0)
[2017-03-06] VITALS (14 sets, daily range): BP systolic 106–140; BP diastolic 51–63; PULSE 85–94; RESP 16–20; TEMP 98.1–99.6; O2SAT 95–100
[2017-03-06] MEDS: INSULIN ASPART SUPPLEMENTAL SCALE SQ SCH ×4 (05:43→21:00)
[2017-03-06] MEDS: MIDODRINE 5 MG TAB PO SCH ×3 (06:03→16:00)
[2017-03-06] MEDS: SODIUM CHLORIDE 0.9% FLUSH 10 ML FLUSH IV FLUSH SCH ×2 (07:53→21:52)
[2017-03-06] MEDS: CARVEDILOL 3.125 MG TAB PO SCH ×2 (08:52→21:52)
[2017-03-06] MEDS: DOCUSATE SODIUM 50 MG/SENNA 8.6 MG TAB PO SCH ×2 (08:52→21:52)
[2017-03-06] MEDS: NYSTATIN SUSP 500,000 U/5 ML CUP SWISH-SWAL SCH ×4 (08:52→21:00)
[2017-03-06] MEDS: FUROSEMIDE 40 MG/4 ML VIAL IV PUSH SCH ×2 (08:52→21:52)
[2017-03-06] MEDS: HEPARIN SODIUM - SQ 10,000 UNITS/ML VIAL SQ SCH ×2 (08:53→21:56)
[2017-03-06] MEDS ORDERED: VANCOMYCIN INJ 1,000 MG in SODIUM CHLOR 0.9% 250 ML INJ 250 ML IV SCH (09:00)
[2017-03-06] MEDS ORDERED: ceFAZolin 2 GM PREMIX 50 ML IV SCH (09:00)
[2017-03-06] MEDS: INSULIN DETEMIR 100 UNITS/ML VIAL SQ SCH (09:09)
[2017-03-06] MEDS ORDERED: LIDOCAINE 1%/EPINEPHrine 1:100,000 SOLN 20 ML VIAL ONE (11:52)
[2017-03-06] MEDS ORDERED: LORazepam 2 MG/ML VIAL ONE ×2 (12:12→12:14)
[2017-03-06] MEDS ORDERED: LACTULOSE SYRUP 20 GM/30 ML CUP PO ONE (12:15)
[2017-03-06] MEDS ORDERED: fentaNYL CITRATE 250 MCG/5 ML AMP ONE (12:39)
--- NOTE | 2017-03-06 13:07 | PD.RAD ---
Post Procedure Progress Note Pre Procedure Diagnosis: (1) Acute kidney failure (2) Stage 4 chronic kidney disease Post Procedure Diagnosis: (1) Acute kidney failure (2) Stage 4 chronic kidney disease Procedure Date: Mar 06, 2017 Supervising Radiologist: Martinez Phillips Anesthesia: Local, Analgesia Plan of Activity Patient to Unit: [facility] Patient Condition: Good Additional Comments: Right Vascath removed. New right IJ Permcath placed. catheter in good position OK for use. Full dictated report to follow See PACS Report for procedural detail/treatment Martinez Phillips MD Mar 06, 2017 13:07
[2017-03-06] MEDS ORDERED: HEPARIN SODIUM - IV 2,000 UNITS/2 ML VIAL IV FLUSH PRN (13:15)
[2017-03-06] MEDS ORDERED: SODIUM CHLORIDE 0.9% FLUSH 10 ML FLUSH IVF PRN (13:15)
--- NOTE | 2017-03-06 13:55 | RADRPT ---
EXAM DATE/TIME: 03/06/2017 00:00 [facility] COMPARISON: CHOLANGIOGRAM THRU EXISTING CATHETER, March 04, 2017, 14:09. INDICATIONS : Patient with history renal disease in need of vascath cath removal prior to permcath placement. MEDICAL HISTORY : 1.HTN 2.CKD 3.CHF 4.Chronic anemia 5.Thalassemia SURGICAL HISTORY : 1.Eye surgery ENCOUNTER: Subsequent ACUITY: > 1 year PAIN SCORE: 0/10 IMAGE SERIES: PROCEDURE : 1. Temporary central venous catheter removal. The prescribed catheter was removed intact and hemostasis was achieved with direct pressure. The sit e was dressed appropriately. The patient tolerated the procedure well. CONCLUSION: Uncomplicated catheter removal. Martinez Phillips MD on March 06, 2017 at 13:54 Board Certified Radiologist. This report was verified electronically.
--- NOTE | 2017-03-06 13:57 | RADRPT ---
EXAM DATE/TIME: 03/06/2017 12:58 [facility] COMPARISON: TEMP CATH MATTHIAS CATH REM W/O FL NON-TUNNELLED, March 06, 2017, 0:00. INDICATIONS : Patient with history of renal disease in need of permcath placement for dialysis. MEDICAL HISTORY : 1.HTN 2.CKD 3.CHF 4.Chronic anemia 5.Thalassemia SURGICAL HISTORY : 1.Eye surgery ENCOUNTER: Subsequent ACUITY: >1 year PAIN SCORE: 0/10 FLUORO TIME: 1.01 minutes IMAGE SERIES: 0 SEDATION TIME: 30 minutes ACCESS: Right external jugular vein SEDATION: 1.) 2 mg lorazepam (Ativan) IV 2.) 125 mcg fentanyl (Sublimaze) IV Prophylactic antibiotics were administered with appropriate pre-procedure timing. Vancomycin within 2 hours of procedure, Ancef (or alternative) within 1 hour of procedure. DEVICE: 1. 15 Samoan dual lumen 14 cm Langston II Plus catheter PROCEDURE : 1. Ultrasound-guided venipuncture. 2. PermaCath placement. 3. Conscious sedation with continuous EKG and oximetry monitoring. The risks, benefits and alternatives to the procedure were explained and verbal and written consent w as obtained. The site was prepped in sterile fashion. Full sterile technique was used, including ca p, mask, sterile gloves and gown and a large sterile sheet. Hand hygiene and 2% chlorhexidine and/or betadine/alcohol prep was utilized per protocol for cutaneous antisepsis. The skin and subcutaneous tissues were infiltrated with local anesthetic solution. With ultrasound and fluoroscopic guidance the right internal jugular vein was accessed using the micr opuncture technique. Serial dilatation was performed to accept the prescribed length catheter. A sub cutaneous tunnel was created in a retrograde fashion the catheter was pulled through the tunnel. The catheter was flushed and assembled and locked with heparin. The catheter was sutured in place. Conscious sedation was performed with the prescribed dosages and duration as above in the presence of an independent trained radiology nurse to assist in the monitoring of the patient. EKG and oximetry remained stable throughout the procedure. The patient tolerated the procedure well and there were n o complications. The patient was sent to post anesthesia recovery in stable condition. CONCLUSION: Uncomplicated PermaCath placement as above. Martinez Phillips MD on March 06, 2017 at 13:54 Board Certified Radiologist. This report was verified electronically.
--- NOTE | 2017-03-06 14:13 | HHI.PR ---
Subjective Remarks Follow-up for multiple medical condition was seen in assessment and plan Patient seen in [facility]. Per ROP[facility] nurse she is still very sedated. They could not wake her up at the moment. Patient has been in [facility] for about 45 mins. I try to wake patient up but I was not able to. I did a sternal rub and she did grimace an open one of her eyes but went back to sleep. Patient airway is protected. She is not in any distress. PermCath in place. Objective Vitals Vital Signs Date Time Temp Pulse Resp B/P Pulse Ox O2 Delivery O2 Flow Rate FiO2 03/06/17 13:48 92 17 106/57 96 03/06/17 13:18 98.1 92 18 111/58 95 03/06/17 12:18 Nasal Cannula 3.00 45 03/06/17 11:30 98.4 85 16 113/56 100 03/06/17 10:19 99 Nasal Cannula 3.00 03/06/17 08:00 98.9 91 16 113/51 100 03/06/17 05:24 Nasal Cannula 2.00 03/06/17 04:00 99.3 94 20 131/60 100 03/06/17 01:40 Nasal Cannula 2.00 03/06/17 00:00 99.6 88 20 140/63 100 03/05/17 21:00 Nasal Cannula 2.00 03/05/17 20:00 98.5 85 20 140/74 100 03/05/17 20:00 82 03/05/17 17:48 98 Nasal Cannula 2.00 03/05/17 16:00 98.3 94 10 131/58 99 I/O 03/05/17 03/05/17 03/05/17 03/06/17 03/06/17 03/06/17 06:59 14:59 22:59 06:59 14:59 22:59 Intake Total 100 ml 120 ml 484 ml Output Total 550 ml 1000 ml 505 ml 5 ml Balance -450 ml -880 ml -21 ml -5 ml Intake Oral 100 ml 120 ml 480 ml IV Total 4 ml Output Urine Total 550 ml 500 ml Drainage Total 5 ml 5 ml Hemodialysis 1000 ml # Voids 1 # Bowel Movements 0 0 Result Diagram: 03/05/17212403/05/172124 Objective Remarks GENERAL: Patient is no acute distress and is sedated from medication after procedure. HEENT: PermCath in place. CARDIOVASCULAR: Regular rate and rhythm without murmurs, gallops, or rubs. RESPIRATORY: Clear to auscultation. Breath sounds equal bilaterally. No wheezes , rales, or rhonchi. GASTROINTESTINAL: Abdomen soft, non-tender, nondistended. Normal active bowel sounds. cholecystostomy tube in place with minimal drainage. MUSCULOSKELETAL: Extremities without clubbing, cyanosis, or edema. NEURO: Sedated. Does grimace an open one eye to sternal rub. Procedures Vas-Cath placement per IR cholecystostomy tube placement Medications and IVs Current Medications Ondansetron HCl (Zofran Inj) 4 mg ONCE ONCE IV PUSH Last administered on 16:37; Start 02/05/17 at 16:30; Stop 02/05/17 at 16:31; Status DC Morphine Sulfate 4 mg 4 mg ONCE ONCE IV PUSH Last administered on 02/05/17 17 :10; Start 02/05/17 at 17:00; Stop 02/05/17 at 17:01; Status DC Sodium Chloride 500 ml @ 500 mls/hr BOLUS ONCE IV Last administered on 17:10; Start 02/05/17 at 17:00; Stop 02/05/17 at 17:59; Status DC Piperacillin Sod/ Tazobactam Sod (Zosyn 3.375 Gm Premix) 50 ml @ 100 mls/hr ONCE ONCE IV Last administered on 02/05/17 18:52; Start 02/05/17 at 18:45; Stop 02/05/17 at 19:14; Status DC Morphine Sulfate (Morphine Inj) 2 mg ONCE ONCE IV PUSH Last administered on 19:00; Start 02/05/17 at 19:00; Stop 02/05/17 at 19:01; Status DC Dextrose (D50w (Vial) Inj) 50 ml UNSCH PRN IV HYPOGLYCEMIA-SEE COMMENTS; Start 02/05/17 at 19:30 Glucagon (Glucagon Inj) 1 mg UNSCH PRN OTHER HYPOGLYCEMIA-SEE COMMENTS; Start 02/05/17 at 19:30 Insulin Aspart 1 1 ACHS SLIDING SCALE SQ Last administered on 03/05/17 22:33 ; Start 02/05/17 at 21:00 Piperacillin Sod/ Tazobactam Sod 50 ml @ 100 mls/hr Q6H IV Last administered on 02/09/17 06:01; Start 02/06/17 at 00:00; Stop 02/09/17 at 16:32; Status DC Sodium Chloride (NS 1000 ml Inj) 1,000 ml @ 50 mls/hr Q20H IV Last administered on 02/06/17 04:19; Start 02/05/17 at 19:16; Status Hold Sodium Chloride (NS Flush) 2 ml UNSCH PRN IV FLUSH FLUSH AFTER USING IV ACCESS ; Start 02/05/17 at 19:30 Sodium Chloride (NS Flush) 2 ml BID IV FLUSH Last administered on 03/06/17 07: 53; Start 02/05/17 at 21:00 Ondansetron HCl (Zofran Inj) 4 mg Q6H PRN IVP NAUSEA OR VOMITING Last administered on 03/05/17 12:08; Start 02/05/17 at 19:30 Acetaminophen (Tylenol) 650 mg Q6H PRN PO FEVER; Start 02/05/17 at 19:30 Morphine Sulfate (Morphine Inj) 2 mg Q3H PRN IV Pain 6-10 Last administered on 02/06/17 07:59; Start 02/05/17 at 19:30; Stop 02/06/17 at 11:21; Status DC Oxycodone HCl (Roxicodone) 5 mg Q4H PRN PO PAIN SCALE 3 TO 5 Last administered on 02/12/17 22:10; Start 02/05/17 at 19:30 Senna/Docusate Sodium (Terese-Colace) 1 tab BID PO Last administered on 08:52; Start 02/05/17 at 21:00 Magnesium Hydroxide (Milk Of Magnesia Liq) 30 ml Q12H PRN PO MILD - MODERATE CONSTIPATION Last administered on 02/06/17 07:59; Start 02/05/17 at 19:30 Sennosides (Senokot) 17.2 mg Q12H PRN PO MODERATE - SEVERE CONSTIPATION; Start 02/05/17 at 19:30 Bisacodyl (Dulcolax Supp) 10 mg DAILY PRN RECTAL SEVERE CONSTIPATION Last administered on 03/05/17 16:47; Start 02/05/17 at 19:30 Lactulose (Lactulose Liq) 30 ml DAILY PRN PO SEVERE CONSITIPATION Last administered on 02/06/17 17:46; Start 02/05/17 at 19:30 Amlodipine Besylate (Norvasc) 10 mg DAILY PO Last administered on 02/06/17 07: 57; Start 02/06/17 at 09:00; Status Hold Carvedilol (Coreg) 3.125 mg Q12HR PO Last administered on 03/06/17 08:52; Start 02/05/17 at 21:00 Tizanidine HCl (Zanaflex) 4 mg TID PO Last administered on 03/06/17 08:52; Start 02/06/17 at 09:00 Insulin Detemir (Levemir Inj) 20 units DAILY SQ ; Start 02/06/17 at 09:00; Stop 02/06/17 at 09:00; Status DC Insulin Detemir (Levemir Inj) 10 units DAILY SQ Last administered on 03/06/17 09:09; Start 02/06/17 at 09:00 Promethazine HCl (Phenergan) 25 mg ONCE ONCE PO Last administered on 07:04; Start 02/06/17 at 07:00; Stop 02/06/17 at 07:01; Status DC Furosemide (Lasix Inj) 40 mg ONCE ONCE IV PUSH Last administered on 02/06/17 12:47; Start 02/06/17 at 11:00; Stop 02/06/17 at 11:01; Status DC Sodium Bicarbonate (Sodium Bicarbonate 8.4% Inj) 50 meq ONCE ONCE IV PUSH Last administered on 02/06/17 12:48; Start 02/06/17 at 12:00; Stop 02/06/17 at 12:01; Status DC Morphine Sulfate (Morphine Inj) 1 mg Q4HR PRN IV BREAKTHROUGH PAIN Last administered on 02/17/17 17:57; Start 02/06/17 at 12:00 Fentanyl Citrate (fentaNYL INJ) 250 mcg STK-MED ONCE .ROUTE Last administered on 02/06/17 15:18; Start 02/06/17 at 15:18; Stop 02/06/17 at 15:19; Status DC Iohexol (Omnipaque 350 Inj) 8 ml STK-MED ONCE .XX Last administered on 16:50; Start 02/06/17 at 16:50; Stop 02/06/17 at 16:51; Status DC Ketorolac Tromethamine 15 mg 15 mg ONCE ONCE IV PUSH ; Start 02/07/17 at 04:45 ; Stop 02/07/17 at 04:46; Status DC Sodium Chloride 1,000 ml @ 84 mls/hr [id number] IV Last administered on 15:00; Start 02/07/17 at 15:00; Stop 02/07/17 at 19:40; Status DC Sodium Bicarbonate 150 meq/Dextrose 1,150 ml @ 150 mls/hr Q7H40M IV Last administered on 02/09/17 13:14; Start 02/07/17 at 19:45; Stop 02/09/17 at 15:39 ; Status DC Bumetanide (Bumex Inj) 100 ml @ 4 mls/hr CONTINUOUS IV Last administered on 13:09; Start 02/08/17 at 13:00; Stop 02/09/17 at 15:39; Status DC Midodrine (Proamatine) 10 mg TID@07,12,17 PO Last administered on 03/06/17 06: 03; Start 02/08/17 at 17:00 Miscellaneous Information Patient in critical care unit? Ass... [id number] .XX ; Start 02/08/17 at 23:00 Chlorhexidine Gluconate (Chlorhexidine 2% Cloth) 3 pack DAILY@04 TOPICAL Last administered on 02/11/17 04:34; Start 02/09/17 at 04:00; Stop 02/13/17 at 04:01 ; Status DC Chlorhexidine Gluconate (Chlorhexidine 2% Cloth) 3 pack UNSCH PRN TOPICAL HYGIENIC CARE; Start 02/08/17 at 23:00; Stop 02/13/17 at 22:56; Status DC Heparin Sodium (Porcine) (*HEPARIN INJ Periprocedural ONLY) 10,000 units STK- MED ONCE .ROUTE Last administered on 02/09/17 15:10; Start 02/09/17 at 13:51; Stop 02/09/17 at 13:52; Status DC Sodium Chloride (NS Flush) UNSCH PRN IVF SEE PROTOCOL; Start 02/09/17 at 15:30 Heparin Sodium (Porcine) UNSCH PRN IV FLUSH SEE PROTOCOL; Start 02/09/17 at 15 :30 Sodium Chloride (NS 1000 ml Inj) 1,000 ml @ 0 mls/hr Q0M PRN IV For Prime & Rinse Back Last administered on 03/05/17 17:24; Start 02/09/17 at 15:39 Heparin Sodium (Porcine) 8000 units 8,000 units UNSCH PRN IVF WITH DIALYSIS; Start 02/09/17 at 15:45 Sodium Chloride 1,000 ml @ 200 mls/hr Q5H PRN IV WITH DIALYSIS; Start 02/09/17 at 15:39 Sodium Chloride (NS 1000 ml Inj) 1,000 ml @ 0 mls/hr Q0M PRN IV WITH DIALYSIS Last administered on 03/03/17 13:01; Start 02/09/17 at 15:39 Mannitol (Mannitol Inj) 12.5 gm UNSCH PRN IV WITH DIALYSIS Last administered on 02/20/17 15:13; Start 02/09/17 at 15:45 Albumin Human (Albumin 25% Inj) 25 gm UNSCH PRN IV WITH DIALYSIS Last administered on 02/24/17 12:27; Start 02/09/17 at 15:45 Sodium Chloride (NS Flush) 5 ml UNSCH PRN IV FLUSH WITH DIALYSIS Last administered on 02/14/17 10:15; Start 02/09/17 at 15:45 Heparin Sodium (Porcine) (Heparin Inj) UNSCH PRN .XX WITH DIALYSIS Last administered on 03/05/17 17:24; Start 02/09/17 at 15:45 Gentamicin Sulfate (Gentamicin (Dialysis) Inj) 20 mg UNSCH PRN IV WITH DIALYSIS Last administered on 03/05/17 17:24; Start 02/09/17 at 15:45 Ondansetron HCl (Zofran Inj) 4 mg UNSCH PRN IV WITH DIALYSIS Last administered on 02/21/17 18:11; Start 02/09/17 at 15:45 Acetaminophen (Tylenol) 650 mg UNSCH PRN PO for headach, temp > 101F; Start at 15:45 Diphenhydramine HCl (Benadryl) 25 mg UNSCH PRN PO for hives/itching/ anaphylaxis Last administered on 02/27/17 06:38; Start 02/09/17 at 15:45 Nitroglycerin (Nitrostat Sl) 0.4 mg UNSCH PRN SL CHEST PAIN; Start 02/09/17 at 15:45 Clonidine (Catapres) 0.1 mg UNSCH PRN PO for BP > 180/100 X 2 readings Last administered on 02/21/17 18:36; Start 02/09/17 at 15:45 Gelatin 1 foam 1 foam UNSCH PRN TOP SEE LABEL COMMENTS; Start 02/09/17 at 15:45 Piperacillin Sod/ Tazobactam Sod (Zosyn 2.25 Gm Premix) 50 ml @ 100 mls/hr Q12H IV Last administered on 02/17/17 05:16; Start 02/09/17 at 18:00; Stop 02/17 at 13:19; Status DC Melatonin (Melatonin) 5 mg HS PRN PO SLEEP Last administered on 03/01/17 21:12 ; Start 02/10/17 at 17:15 Epoetin Moreno 57707 units 20,000 units MoWeFr SQ ; Start 02/13/17 at 14:00; Status Cancel Iron Sucrose/ Sodium Chloride (Venofer Inj/NS Inj) 105 ml @ 105 mls/hr DAILY IV Last administered on 02/14/17 10:13; Start 02/12/17 at 12:00; Stop at 09:59; Status DC Epoetin More[place] (Epogen Inj) 20,000 units UNSCH PRN IV WITH DIALYSIS Last administered on 03/05/17 17:25; Start 02/12/17 at 10:15 Furosemide (Lasix Inj) 60 mg ONCE ONCE IV PUSH Last administered on 02/12/17 20:51; Start 02/12/17 at 20:45; Stop 02/12/17 at 20:48; Status DC Oxycodone HCl (Roxicodone) 10 mg Q4H PRN PO PAIN 6-10 Last administered on 03/06 04:28; Start 02/13/17 at 11:15 Albuterol Sulfate (Albuterol Neb) 1.25 mg Q4HR NEB PRN NEB SOB/WHEEZING Last administered on 02/20/17 05:29; Start 02/13/17 at 11:15 Furosemide (Lasix Inj) 40 mg DAILY IV PUSH Last administered on 02/20/17 10:03 ; Start 02/16/17 at 09:00; Stop 02/20/17 at 16:52; Status DC Furosemide (Lasix Inj) 40 mg ONCE ONCE IV PUSH Last administered on 02/15/17 13:18; Start 02/15/17 at 11:30; Stop 02/15/17 at 11:36; Status DC Heparin Sodium (Porcine) (Heparin Inj) 5,000 units Q12HR SQ Last administered on 03/05/17 22:20; Start 02/16/17 at 21:00 Aspirin (Aspirin Chew) 81 mg DAILY CHEW Last administered on 03/05/17 12:09; Start 02/17/17 at 09:00; Status Hold Heparin Sodium (Porcine) (*HEPARIN INJ Periprocedural ONLY) 10,000 units STK- MED ONCE .ROUTE Last administered on 02/18/17 08:45; Start 02/18/17 at 09:11; Stop 02/18/17 at 09:12; Status DC Albuterol/ Ipratropium (Duoneb Neb) 1 ampule QID NEB NEB Last administered on 02/23/17 15:38; Start 02/19/17 at 20:00; Stop 02/23/17 at 20:00; Status DC Furosemide (Lasix Inj) 40 mg ONCE ONCE IV PUSH Last administered on 02/20/17 05:38; Start 02/20/17 at 05:30; Stop 02/20/17 at 05:34; Status DC Furosemide (Lasix Inj) 40 mg BID IV PUSH Last administered on 02/21/17 09:48; Start 02/20/17 at 21:00; Stop 02/21/17 at 10:03; Status DC Furosemide (Lasix Inj) 80 mg BID IV PUSH Last administered on 03/06/17 08:52; Start 02/21/17 at 21:00 Nystatin (Mycostatin Liq) 5 ml QID SWISH-SWAL Last administered on 03/06/17 08:52; Start 02/22/17 at 13:00 Lorazepam (Ativan Inj) 1 mg ONCE PRN IV PUSH Before MRI Scan Last administered on 02/24/17 18:14; Start 02/24/17 at 11:15; Stop 02/25/17 at 11:14; Status DC Iohexol (Omnipaque 350 Inj) 10 ml STK-MED ONCE .XX Last administered on 18:26; Start 02/27/17 at 18:26; Stop 02/27/17 at 18:27; Status DC Alteplase, Recombinant (Cathflo Activase Inj) 2 mg ONCE ONCE INTRACATH ; Start 03/01/17 at 12:00; Stop 03/01/17 at 12:01; Status DC Iohexol 10 ml 10 ml STK-MED ONCE .XX Last administered on 03/04/17 14:25; Start 03/04/17 at 14:42; Stop 03/04/17 at 14:43; Status DC Vancomycin HCl 1000 mg/Sodium Chloride 250 ml @ 250 mls/hr MA[employer] TECHNICIAN IV Last administered on 03/06/17 09:50; Start 03/06/17 at 09:00; Stop 03/10/17 at 08:59 Cefazolin Sodium/ Dextrose (Ancef 2 Gm Premix) 50 ml @ 100 mls/hr MA[employer] TECHNICIAN IV ; Start 03/06/17 at 09:00; Stop 03/10/17 at 08:59 Heparin Sodium (Porcine) (*HEPARIN INJ Periprocedural ONLY) 10,000 units STK- MED ONCE .ROUTE Last administered on 03/06/17 12:40; Start 03/06/17 at 11:51; Stop 03/06/17 at 11:52; Status DC Lidocaine/ Epinephrine (Xylocaine-Epi 1%-1:100,000 Inj) 20 ml STK-MED ONCE .ROUTE Last administered on 03/06/17 12:33; Start 03/06/17 at 11:52; Stop at 11:53; Status DC Lactulose (Lactulose Liq) 30 ml ONCE ONCE PO ; Start 03/06/17 at 12:15; Stop at 12:18; Status DC Fentanyl Citrate (fentaNYL INJ) 100 mcg STK-MED ONCE .ROUTE ; Start 03/06/17 at 12:12; Stop 03/06/17 at 12:13; Status DC Lorazepam (Ativan Inj) 2 mg STK-MED ONCE .ROUTE ; Start 03/06/17 at 12:12; Stop 03/06/17 at 12:13; Status DC Lorazepam (Ativan Inj) 2 mg STK-MED ONCE .ROUTE ; Start 03/06/17 at 12:14; Stop 03/06/17 at 12:15; Status DC Fentanyl Citrate (fentaNYL INJ) 250 mcg STK-MED ONCE .ROUTE ; Start 03/06/17 at 12:39; Stop 03/06/17 at 12:40; Status DC Sodium Chloride (NS Flush) UNSCH PRN IVF SEE PROTOCOL; Start 03/06/17 at 13:15 Heparin Sodium (Porcine) (Heparin Inj) UNSCH PRN IV FLUSH SEE PROTOCOL; Start 03/06/17 at 13:15 A/P Problem List: (1) Cholecystitis ICD Code: K81.9 Status: Acute (2) Elevated LFTs ICD Code: R79.89 Status: Acute (3) Renal insufficiency ICD Code: N28.9 Status: Acute (4) CHF (congestive heart failure) ICD Code: I50.9 Status: Chronic (5) DM (diabetes mellitus) ICD Code: E11.9 Status: Acute Assessment and Plan 66-year-old female admitted secondary to cholecystitis. Status post cholecystostomy tube placement by IR. Complicated course by acute renal failure , anemia, CHF, pleural effusion. Acute cholecystitis Status post cholecystostomy tube placement by IR Status post completed Zosyn treatment. All cultures neg. Continue pain control Continue postop wound care Monitor biliary drain output, IR following. d/w Dr. Hughes in regards to cholecystostomy tube and he stated it has to stay in at least 3 weeks. repeat cholangiogram in 3 weeks. cystic duct has to be open before removal. Poor surgical candidate. General surgery signed off. Emesis in a.m. on 03/05 Seemed to resolve after patient was seen yesterday. KUB shows mild stool but no ileus or small bowel obstruction. Labs reviewed. Constipation Patient on Terese-Colace continue Terese-Colace. Status post Dulcolax suppository. KUB shows mild amount stools. We will give a dose of lactulose when patient wakes up. Bilateral Lower Extremity paralysis MRI of lumbar spine, no cord compression.? ischemia per Neurology. Will need termination clerk care Neurology following Follow clinically Monitor for any progression Acute systolic CHF Pulm Edema pleural effusion: 80 mg IV Lasix BID daily 2D ECHO, EF of 30-35%. Daily aspirin Low sodium diet Monitor pleural effusions Pulmonology following Cardiology following. Not a good candidate for invasive procedures such as revascularization. Acute on chronic renal failure Metabolic acidosis secondary to acute renal failure Nephrology following Status post Vas-Cath and removal today. PermCath placed by IR today. Per plaster helper patient most likely will need long-term dialysis. Hypotension Resolved Continue midodrine as needed Follow blood pressures Diabetes mellitus Insulin sliding scale Levemir Diabetic diet Follow blood sugars Chronic pain syndrome Insomnia Melatonin 5 mg by mouth daily at bedtime PRN for insomnia Continue as needed pain control treatments Mild protein calorie Malnutrition Nutrition is consulted anemia of chronic disease Epogen and IV iron. Follow CBC Sacral wounds Superficial abrasions. Per wound care most likely secondary to moisture. Recommend aeration. DVT prophylaxis SCDs heparin. will hold AM dose of heparin. Discharge Planning Dealt with patient nurse and her daughter Mrs. Meza over the phone. Mrs. Meza has been upset with the care given by ancillary staff. I told Mrs. Meza to speak to patient advocacy if she feels like her mother is not getting the care needed. Daughter requests for daily updates from provider. Her number is [phone] name is Mrs. Meza. Leonor Nielson MD Mar 06, 2017 14:13
--- NOTE | 2017-03-06 16:56 | HHI.NPPN ---
Subjective History of Present Illness 66-year-old female with a past medical history of hypertension, diabetes mellitus, chronic kidney disease, anemia and chronic back pain, who was admitted because of abdominal pain, nausea and vomiting. I was called to see the patient because of elevated BUN and creatinine. The patient has known history of chronic kidney disease and she had acute kidney injury. Additional Remarks Patient is alert, now on HD, with nasal cannula. Review of Systems General Constitutional: Fatigue Objective Data Data 03/05/17 03/06/17 19:00 07:00 Intake Total 120 ml 484 ml Output Total 1000 ml 510 ml Balance -880 ml -26 ml Intake Oral 120 ml 480 ml IV Total 4 ml Output Urine Total 500 ml Drainage Total 10 ml Hemodialysis 1000 ml # Voids 1 # Bowel Movements 0 Vital Signs Date Time Temp Pulse Resp B/P Pulse Ox O2 Delivery O2 Flow Rate FiO2 03/06/17 15:18 87 18 123/58 97 03/06/17 14:48 89 17 106/58 97 03/06/17 14:18 90 18 108/59 97 03/06/17 13:48 92 17 106/57 96 03/06/17 13:18 98.1 92 18 111/58 95 03/06/17 12:18 Nasal Cannula 3.00 45 03/06/17 12:00 98.2 93 18 140/63 99 03/06/17 11:30 98.4 85 16 113/56 100 03/06/17 10:19 99 Nasal Cannula 3.00 03/06/17 08:00 98.9 91 16 113/51 100 03/06/17 05:24 Nasal Cannula 2.00 03/06/17 04:00 99.3 94 20 131/60 100 03/06/17 01:40 Nasal Cannula 2.00 03/06/17 00:00 99.6 88 20 140/63 100 03/05/17 21:00 Nasal Cannula 2.00 03/05/17 20:00 98.5 85 20 140/74 100 03/05/17 20:00 82 03/05/17 17:48 98 Nasal Cannula 2.00 -: 03/05/17212403/05/172124 Physical Exam General Appearance Remarks Mild resp. distress. Eyes Eye Exam: Pupils Equal Throat Throat Exam: Oral Mucosa [place] & Moist Neck Neck Exam: Neck Supple Pulmonary Resp Exam: Breath Sounds Equal, No Distress, Rhonchi, Decreased Bases, Diminished Breath Sounds Cardiology CV Exam: Regular, Normal Sinus Rhythm Gastrointestinal/Abdomen GI Exam: Soft, Bowel Sounds Present, Distended Extremeties Extremities Exam: Trace Edema Neurologic Neuro Exam: Alert, Awake, Oriented Psychiatric Psych Exam: Appropriate Responses Assessment/Plan Assessment Summary: GRADY/Acute Renal Failure, Hypotension, CKD Stage IV Problem List: (1) Acute kidney failure Plan: Urine out put is decreased again, on Lasix. Creatinine still elevated. Continue dialysis support as needed. Avoid nephrotoxic agents. On Lasix. to 80 mg IV Q12. HD now, there is no improvement in renal function. Possibly she has end stage renal disease. I will get PermCath. She is not a good candidate for detention out patient HD due to bed ridden status. I will discuss with her family. (2) Diabetes mellitus (3) CHF (congestive heart failure) (4) Cholecystitis (5) Gallstones (6) Elevated LFTs (7) Anemia (8) Stage 4 chronic kidney disease Problem Qualifiers (1) Anemia: Svitlana Cook MD Mar 06, 2017 16:56
[2017-03-07] VITALS: BP 121/57; PULSE 87; RESP 18; TEMP 99.7; O2SAT 100
[2017-03-07 04:00] VITALS: BP 137/62; PULSE 92; RESP 18; TEMP 99.2; O2SAT 100
[2017-03-07] MEDS: MIDODRINE 5 MG TAB PO SCH (06:00)
[2017-03-07] MEDS: INSULIN ASPART SUPPLEMENTAL SCALE SQ SCH ×2 (06:17→11:00)
[2017-03-07 06:45] VITALS: O2SAT 99
[2017-03-07 08:00] VITALS: BP 116/62; PULSE 90; RESP 18; TEMP 98.7; O2SAT 100
[2017-03-07] MEDS: DOCUSATE SODIUM 50 MG/SENNA 8.6 MG TAB PO SCH (09:00)
[2017-03-07] MEDS: INSULIN DETEMIR 100 UNITS/ML VIAL SQ SCH (09:00)
[2017-03-07] MEDS: NYSTATIN SUSP 500,000 U/5 ML CUP SWISH-SWAL SCH (09:00)
[2017-03-07] MEDS: ALBUMIN HUMAN 25% 25 GM/100 ML BAGP IV PRN (09:40)
[2017-03-07] MEDS: SODIUM CHLOR 0.9% 1000 ML INJ 1,000 ML IV PRN (09:41)
[2017-03-07] MEDS: SODIUM CHLORIDE 0.9% FLUSH 10 ML FLUSH IV FLUSH PRN (09:41)
[2017-03-07] MEDS: HEPARIN SODIUM - IV 10,000 UNITS/10 ML VIAL PRN (09:42)
[2017-03-07] MEDS: GENTAMICIN SULFATE (DIALYSIS USE ONLY) 20 MG/2 ML VIAL IV PRN (09:42)
[2017-03-07] MEDS: EPOETIN ALFA 20,000 UNITS/ML VIAL IV PRN (09:47)
[2017-03-07] MEDS ORDERED: BISACODYL 10 MG SUPP RECTAL ONE (10:15)
[2017-03-07] MEDS ORDERED: POLYETHYLENE GLYCOL 17 GM PKG PO SCH (10:15)
[2017-03-07] MEDS ORDERED: LEVEMIR SQ (10:19)
[2017-03-07] MEDS ORDERED: GNP5TAB6 PO (10:19)
[2017-03-07] MEDS ORDERED: MIDO5TAB PO (10:19)
[2017-03-07] MEDS ORDERED: POLY17S PO (10:19)
[2017-03-07] MEDS ORDERED: NYST1000 SWISH-SWAL (10:19)
[2017-03-07] MEDS ORDERED: FURO1TAB61 PO (10:19)
[2017-03-07] MEDS ORDERED: ASPI81CH25 CHEW (10:19)
--- NOTE | 2017-03-07 10:19 | HHI.NPPN ---
Subjective History of Present Illness 66-year-old female with a past medical history of hypertension, diabetes mellitus, chronic kidney disease, anemia and chronic back pain, who was admitted because of abdominal pain, nausea and vomiting. I was called to see the patient because of elevated BUN and creatinine. The patient has known history of chronic kidney disease and she had acute kidney injury. Additional Remarks Patient seen on dialysis, tolerated HD well Review of Systems General Constitutional: Fatigue Objective Data Data 03/06/17 03/07/17 19:00 07:00 Intake Total 100 ml Balance 100 ml Intake Oral 100 ml # Voids 2 1 # Bowel Movements 0 Vital Signs Date Time Temp Pulse Resp B/P Pulse Ox O2 Delivery O2 Flow Rate FiO2 03/07/17 08:00 98.7 90 18 116/62 100 03/07/17 06:45 99 Nasal Cannula 3.00 03/07/17 04:00 99.2 92 18 137/62 100 03/07/17 00:00 99.7 87 18 121/57 100 03/06/17 21:31 92 03/06/17 20:00 99.2 94 18 131/63 99 03/06/17 20:00 97 Nasal Cannula 3.00 03/06/17 17:45 97 Nasal Cannula 3.00 03/06/17 15:18 87 18 123/58 97 03/06/17 14:48 89 17 106/58 97 03/06/17 14:18 90 18 108/59 97 03/06/17 13:48 92 17 106/57 96 03/06/17 13:18 98.1 92 18 111/58 95 03/06/17 12:18 Nasal Cannula 3.00 45 03/06/17 12:00 98.2 93 18 140/63 99 03/06/17 11:30 98.4 85 16 113/56 100 03/06/17 10:19 99 Nasal Cannula 3.00 -: 03/05/17212403/05/172124 Physical Exam Eyes Eye Exam: Pupils Equal Throat Throat Exam: Oral Mucosa [place] & Moist Neck Neck Exam: Neck Supple Pulmonary Resp Exam: Breath Sounds Equal, No Distress, Rhonchi, Decreased Bases, Diminished Breath Sounds Cardiology CV Exam: Regular, Normal Sinus Rhythm Gastrointestinal/Abdomen GI Exam: Soft, Bowel Sounds Present, Distended Extremeties Extremities Exam: Trace Edema Neurologic Neuro Exam: Alert, Awake, Oriented Psychiatric Psych Exam: Appropriate Responses Assessment/Plan Assessment Summary: GRADY/Acute Renal Failure, Hypotension, CKD Stage IV Problem List: (1) Acute kidney failure Plan: Patient seen on HD - tolerating HD well. Continue TTS HD. Outpatient HD can be challenging given bedridden status, potentially ESRD now Has tunneled HD catheter now. Remains on lasix 80IV BID. UOP not quantified, however creatinine remains elevated. (2) Diabetes mellitus (3) CHF (congestive heart failure) (4) Cholecystitis (5) Gallstones (6) Elevated LFTs (7) Anemia (8) Stage 4 chronic kidney disease Problem Qualifiers (1) Acute kidney failure: Qualified Code: N17.9 - Acute renal failure, unspecified acute renal failure type (2) Anemia: Martinez Jarrett MD Mar 07, 2017 10:19
--- NOTE | 2017-03-07 10:34 | HHI.DS ---
Discharge Summary Admission Date Feb 05, 2017 at 18:50 Discharge Date: Mar 07, 2017 Admitting Diagnosis cholecystitis (1) Septic shock ICD Code: A41.9 Diagnosis: Principal (2) Acute cholecystitis ICD Code: K81.0 Diagnosis: Principal (3) cardiomyopathy, CHF, EF 30% Diagnosis: Principal (4) Gallstones ICD Code: K80.20 Diagnosis: Secondary (5) renal failure on dialysis ; possible ATN secondary to recent septic shock Diagnosis: Principal (6) diabetes, long-standing, with neuropathy Diagnosis: Secondary (7) anemia (history of sickle cell trait, thalassemia, and pernicious anemia) Diagnosis: Principal (8) Acute kidney failure ICD Code: N17.9 Diagnosis: Principal (9) Stage 4 chronic kidney disease ICD Code: N18.4 Diagnosis: Secondary (10) Cholecystostomy care ICD Code: Z43.4 Diagnosis: Principal (11) Hypotension ICD Code: I95.9 Diagnosis: Principal (12) Paralysis of both lower limbs ICD Code: G82.20 Diagnosis: Principal (13) Constipation ICD Code: K59.00 Diagnosis: Principal (14) Acute on chronic systolic CHF (congestive heart failure) ICD Code: I50.23 Diagnosis: Principal Procedures Vas-Cath placement per IR and removal PermCath placement cholecystostomy tube placement Brief History - From Admission This is a 66-year-old female with a PMH of HTN, CHF (Echo 12/17/16 w/ EF 30-35%) , CKD Stage IV, Chronic Anemia and Thalassemia who presented to the ER w/ complaints of abdominal pain, nausea and vomiting since last night. Denies fever, chills or diarrhea. On arrival, BP 150/72, HR 97, O2 sat 99% on RA, Temp 99.0. CBC at baseline. Creatinine 2.75, previously 3.04 on 12/29/16. LFTs mildly elevated comparison to previous. UA negative. CT Abd/Pelvis w/ abnormal gallbladder, markedly distended gallbladder with wall thickening and mild induration of pericholecystic fat concerning for cholecystitis. Dr. Serrato consulted by ER physician, plan is for surgical intervention in am. S/p Sherri in ER. CBC/BMP: 03/05/17212403/05/172124 Significant Findings Laboratory Tests Test 03/05/17 21:25 Red Blood Count 3.81 MIL/MM3 (4.00-5.30) Hemoglobin 8.1 GM/DL (11.6-15.3) Hematocrit 26.6 % (35.0-46.0) Mean Corpuscular Volume 69.7 FL (80.0-100.0) Mean Corpuscular Hemoglobin 21.2 PG (27.0-34.0) Mean Corpuscular Hemoglobin 30.4 % Concent (32.0-36.0) Red Cell Distribution Width 17.7 % (11.6-17.2) Monocytes (%) (Auto) 9.4 % (0.0-8.0) Eosinophils (%) (Auto) 8.1 % (0.0-4.0) Eosinophils # (Auto) 0.7 TH/MM3 (0-0.4) Sodium Level 134 MEQ/L (136-145) Chloride Level 93 MEQ/L (98-107) Blood Urea Nitrogen 34 MG/DL (7-18) Creatinine 5.43 MG/DL (0.50-1.00) Estimat Glomerular Filtration 10 ML/MIN (>89) Rate Random Glucose 302 MG/DL (74-106) Total Protein 9.1 GM/DL (6.4-8.2) Imaging Last Impressions Central Venous Line 03/06/17 0000 Signed Impressions: Service Date/Time: Monday, March 06, 2017 00:00 - CONCLUSION: Uncomplicated catheter removal. Martinez Phillips MD Catheter Placement X-Ray 03/06/17 0000 Signed Impressions: Service Date/Time: Monday, March 06, 2017 12:58 - CONCLUSION: Uncomplicated PermaCath placement as above. Martinez Phillips MD Abdomen X-Ray 03/05/17 0000 Signed Impressions: Service Date/Time: February 17:49 - CONCLUSION: 1. No evidence for obstruction. Mild constipation. Dmitriy Ramirez MD Cholangiogram 03/04/17 0000 Signed Impressions: Service Date/Time: Saturday, March 04, 2017 14:09 - CONCLUSION: Cholecystostomy tube in good position. Gallbladder remains abnormal with an occluded cystic duct. An accordion suction device was applied to the catheter to aid in drainage. Kolby Hughes Jr., MD Thoracic Spine MRI 02/24/17 0000 Signed Impressions: Service Date/Time: Friday, February 24, 2017 18:38 - CONCLUSION: 1. Moderate epidural lipomatosis on the dorsal aspect of the thoracic spine most prominent between T4 and T9 resulting in complete effacement of the thecal sac around the cord without significant cord compression. No acute bony abnormality. Dmitriy Ramirez MD Lumbar Spine MRI 02/24/17 Signed Impressions: Service Date/Time: Friday, February 24, 2017 18:38 - CONCLUSION: Normal examination for a patient of this age. Dmitriy Ramirez MD Chest X-Ray 02/20/17 Signed Impressions: Service Date/Time: Monday, February 20, 2017 05:45 - CONCLUSION: Increasing airspace disease, stable effusions. Juan De Souza MD Chest Ultrasound 02/17/17 0000 Signed Impressions: Service Date/Time: Friday, February 17, 2017 22:18 - CONCLUSION: Small right pleural effusion estimated at 252 cc. Kevin Sofia MD Lower Extremity Ultrasound 02/16/17 0000 Signed Impressions: Service Date/Time: Thursday, February 16, 2017 20:41 - CONCLUSION: Negative exam. No evidence of deep venous thrombosis. Kevin Sofia MD Percutaneous Cholangiogram 02/06/17 0000 Signed Impressions: Service Date/Time: Monday, February 06, 2017 15:15 - CONCLUSION: Uncomplicated percutaneous cholecystostomy as above. Thick inspissated bile was noted. The drainage is fairly low given the size of the gallbladder and therefore a CT will be performed to confirm appropriate positioning of the cholecystostomy tube. Kolby Hughes Jr., MD Abdomen CT 02/06/17 0000 Signed Impressions: Service Date/Time: Monday, February 06, 2017 16:21 - CONCLUSION: Interval cholecystostomy tube placement. Worsening parenchymal disease in the lung bases. Ney Lutz MD Abdomen/Pelvis CT 02/05/17 1656 Signed Impressions: Service Date/Time: January 18:15 - CONCLUSION: 1. Gallbladder is abnormal. It is markedly distended with gallbladder wall thickening and mild induration of the pericholecystic fat concerning for cholecystitis. High attenuation within the gallbladder lumen may be related to sludge or clot. 2. Left basilar atelectasis and tiny left effusion. Juan De Souza MD Gall Bladder Ultrasound 02/05/17 0000 Signed Impressions: Service Date/Time: January 20:39 - CONCLUSION: 1. The gallbladder is abnormal with findings corresponding to the findings on the CT exam. There is wall thickening, marked distention and the lumen is occupied by echogenic shadowing material which may reflect sludge or hemorrhage. A few stones are suspected. Juan De Souza MD PE at Discharge GENERAL: Patient is no acute distress and is seen during dialysis. HEENT: PermCath in place. CARDIOVASCULAR: Regular rate and rhythm without murmurs, gallops, or rubs. RESPIRATORY: Clear to auscultation. Breath sounds equal bilaterally. No wheezes , rales, or rhonchi. GASTROINTESTINAL: Abdomen soft, non-tender, nondistended. Normal active bowel sounds. cholecystostomy tube in place with minimal drainage. MUSCULOSKELETAL: Extremities without clubbing, cyanosis, or edema. NEURO: AAO X 3. Pt update on day of discharge Follow-up for renal failure and cholecystotomy care. Patient seen in dialysis. She was talking to her daughter over the phone. She stated that she feels weak all over and wants to sit in chair. Otherwise she has no complaints. Denies shortness of breathing, chest pain, or any pain. She has not had a bowel movement yet. Denied any nausea or vomiting since she was last seen. She stated that she is tolerate oral intake. Dealt with patient's daughter Mrs. Meza over the phone in regards to management. She agreed that patient should be transferred to rehabilitation facility. During the interview and conversation with the daughter dialysis nurse was at the bedside. Dealt extensively with patient's floor nurse in regards to management. Also d/ w case management in regards to plan. Hospital Course 66-year-old female admitted secondary to cholecystitis Acute cholecystitis Patient was admitted secondary to acute cholecystitis in which general surgery was consulted. She was put on Zosyn. Due to her medical illness patient is a poor surgical candidate for surgery saw IR was consulted for cholecystostomy tube placement by IR. During hospital course cholangiogram was done which showed that tube was in the right place but cystic duct was open. Infectious disease was consulted in which patient completed her course of Zosyn during her hospitalization. Cultures were obtained in all cultures were negative. Per Dr. Hughes IR in regards to cholecystostomy tube and he stated it has to stay in at least 3 weeks. repeat cholangiogram in 3 weeks. cystic duct has to be open before removal. Septic shock secondary to acute cholecystitis During hospital course patient became septic in which she was given IV antibiotics and IV fluids. She was transferred to the ICU for closer monitor. She was then put on Midrin. With treatment of her acute cholecystitis symptoms improved. Acute on chronic renal failure Metabolic acidosis secondary to acute renal failure Nephrology was consulted. Patient was volume overloaded and initially put on IV Lasix 80 mg IV with no improvement in her output. Patient had a Vas-Cath in which she was put on dialysis. Per director of quality improvement unlikely patient will regain renal function she may have end- stage renal disease. Before discharge PermCath was placed. Per director of quality improvement patient most likely will need long-term dialysis. Hypotension Due to sepsis patient went to septic shock. She was given aggressive fluid station in treating the underlying cause. She was later put on midodrine and her antihypertensive medication were held. Resolved during hospital course. Diabetes mellitus Patient was put on insulin sliding scale and long-acting insulin. Was also on a diabetic diet. Insulin adjusted accordingly. Chronic pain syndrome Insomnia Patient was put on Melatonin 5 mg by mouth daily at bedtime PRN for insomnia Continue as needed pain control treatments Mild protein calorie Malnutrition Nutrition is consulted anemia of chronic disease Epogen and IV iron. Follow CBC Sacral wounds Wound care nurse was consulted and stated that these are most likely secondary to moisture. Recommend aeration. Emesis in a.m. on 03/05 Only happened on one day. Resolved quickly. Workup was done which her labs were reviewed which were relatively stable. KUB shows mild stool but no ileus or small bowel obstruction. Constipation Patient on Terese-Colace continue Terese-Colace. She was given Dulcolax suppository. KUB shows mild amount stools. She was also given lactulose. MiraLAX scheduled the day of discharge. She was asymptomatic. Bilateral Lower Extremity paralysis Later to the hospital course patient complained of bilateral lower extremity. Neurologist was consulted. MRI of lumbar spine, no cord compression.? ischemia per Neurology. Will need exterminator helper care Acute systolic CHF Pulm Edema pleural effusion: Gantry Rigger was consulted. Echo showed cardiomyopathy with EF of 30-35%. Etiology unknown. Patient was a poor candidate for any invasive procedure such as revascularization. Per market maker just continue with medical management. She was put on 80 mg IV Lasix BID daily, which did not help her urine output so she was given dialysis. She tolerated dialysis. 2D ECHO was done which showed clear myopathy with, EF of 30-35%. She was put on aspirin a low sodium diet. Pt Condition on Discharge: Stable Discharge Disposition: Discharge to SNF Discharge Time: > 30 minutes Discharge Instructions DIET: Follow Instructions for: Heart Healthy Diet, Diabetic Diet, Renal Failure Diet Additional Diet Instructions: Heart healty diet. Activities you can perform: Regular-No Restrictions Follow up Referrals: Cardiology - 2 Weeks with Chin Hernandez DO Nephrology - 1 Week with Svitlana Cook MD [facility]/ - Next Day New Medications: Furosemide (Lasix) 80 Mg Tab 80 MG PO BID volume overloaded #60 Ref 0 TAB Aspirin (Aspirin Low Strength) 81 Mg Chew 81 MG CHEW DAILY prevention #30 Ref 0 EA Insulin Detemir Inj (Levemir Inj) 1,000 unit/ 10 ML Vial 10 UNITS SQ DAILY diabetes #1 Ref 0 INJECTION Melatonin (Gnp Melatonin Maximum Str) 5 Mg Tab 5 MG PO HS PRN SLEEP #30 Ref 0 TAB Midodrine (Midodrine) 5 Mg Tab 10 MG PO TID@07,12,17 may discontinue if blood pressure improves or becomes elevated. low blood pressure #90 Ref 0 TAB Nystatin Liq (Nystatin Liq) 100,000 unit/ml Susp 5 ML SWISH-SWAL QID oral thrush #100 Ref 0 ML Oxycodone (Oxycodone) 5 Mg Tab 5 MG PO Q4H PRN PAIN GREATER THAN 5 #20 TAB Oxycodone (Oxycodone) 10 Mg Tab 10 MG PO Q4H PRN moderate to severe pain #20 Ref 0 TAB Polyethylene Glycol 3350 Powder (Polyethylene Glycol 3350 Powder) 17 Gm Pow 17 GM PO DAILY constipation #10 Ref 0 PACK Continued Medications: Atropine Sulfate in 0.9% NaCl (Atropine 0.01%-Ns Eye Drops) 10 Ml Drops 0.01 DROP LEFT EYE BID Carvedilol (Coreg) 3.125 Mg Tab 3.125 MG PO Q12HR Blood Pressure Management #60 Ref 3 TAB Cholecalciferol (D3) 1,000 Unit Cap Cholecalciferol (Baby Ddrops) 400 Unit/0.03 Ml Liq 400 UNITS PO DAILY #1 BOTTLE Epoetin Inj (Procrit Inj) 10,000 Unit/Ml Inj Unknown Dose SQ 3XWEEK Anemia #12 Ref 0 VIAL Ferrous Sulfate (Ferosul) 325 Mg Tablet 325 MG PO BID Nutritional Supplement #60 MG Sennosides-Docusate Sodium (Senna Plus 8.6-50 mg) 1 Tab Tab 1 TAB PO BID Immunosuppression #20 TAB Tizanidine (Tizanidine) 4 Mg Cap 4 MG PO TID Muscle Spasm Ref 0 CAP ([iron infusion]) Unknown Dose IV [id number] Discontinued Medications: Amlodipine (Amlodipine) 10 Mg Tab 10 MG PO DAILY Blood Pressure Management #30 Ref 0 TAB Benzonatate (Tessalon Perles) 100 Mg Cap 100 MG PO TID Breathing Treatment #20 CAP Cholecalciferol (D 400) 400 Unit Chew Glipizide (Glipizide) 10 Mg Tab 10 MG PO BIDAC Take 30 minutes before a meal Blood Sugar Management #60 Ref 0 TAB Insulin Glargine Inj (Lantus Solostar Pen Inj) 300 Unit/3 Ml Pen 20 UNITS SQ DAILY Blood Sugar Management #5 Ref 0 PEN Oxycodone (Oxycodone) 5 Mg Tab 5 MG PO Q6H PRN PAIN 1-10 #30 TAB Leonor Nielson MD Mar 07, 2017 10:33
[2017-03-07] MEDS: HEPARIN SODIUM - SQ 10,000 UNITS/ML VIAL SQ SCH (12:38)
[2017-03-07] MEDS: FUROSEMIDE 40 MG/4 ML VIAL IV PUSH SCH (12:38)
[2017-03-07] MEDS: SODIUM CHLORIDE 0.9% FLUSH 10 ML FLUSH IV FLUSH SCH (12:38)
[2017-03-07] MEDS: MORPHINE SULFATE 4 MG/ML INJ IV PRN (12:40)
[2017-03-07] MEDS: CARVEDILOL 3.125 MG TAB PO SCH (12:40)
[2017-03-07 13:00] VITALS: BP 130/63; PULSE 103; RESP 18; TEMP 97.3; O2SAT 100
[2017-03-07] MEDS ORDERED: OXYC-395 PO (13:25)
== END 2017-03-07 16:25 | DRG 444 ==
LOC: NEPE 12:34 → NEDA 18:50 → N07A 21:56 → HCVR 02-07 17:27 → HIME 02-09 15:35 → N05B 02-12 00:15 → N03B 02-20 06:26 → N04B 02-21 23:08
PROVIDERS: ADMIT Hospitalist; ATTEND Family Medicine
PROC: 0F9430Z Drainage of Gallbladder with Drainage Device, Percutaneous Approach (ICD-10-PCS; principal; 2017-02-06)
PROC: 02HV33Z Insertion of Infusion Device into Superior Vena Cava, Percutaneous Approach (ICD-10-PCS; 2017-02-09)
PROC: 5A1D60Z (ICD-10-PCS; 2017-02-09)
PROC: 02HV33Z Insertion of Infusion Device into Superior Vena Cava, Percutaneous Approach (ICD-10-PCS; 2017-02-18)
PROC: 5A09357 Assistance with Respiratory Ventilation, Less than 24 Consecutive Hours, Continuous Positive Airway Pressure (ICD-10-PCS; 2017-02-20)
PROC: BF121ZZ Fluoroscopy of Gallbladder using Low Osmolar Contrast (ICD-10-PCS; 2017-02-27)
PROC: BF121ZZ Fluoroscopy of Gallbladder using Low Osmolar Contrast (ICD-10-PCS; 2017-03-04)
PROC: 05HM33Z Insertion of Infusion Device into Right Internal Jugular Vein, Percutaneous Approach (ICD-10-PCS; 2017-03-06)
PROC: 02PY33Z Removal of Infusion Device from Great Vessel, Percutaneous Approach (ICD-10-PCS; 2017-03-06)
DX: K80.00 Calculus of gallbladder with acute cholecystitis without obstruction (principal); N17.0 Acute kidney failure with tubular necrosis; R65.21 Severe sepsis with septic shock; J96.01 Acute respiratory failure with hypoxia; A41.9 Sepsis, unspecified organism; I50.23 Acute on chronic systolic (congestive) heart failure; J90 Pleural effusion, not elsewhere classified; N18.6 End stage renal disease; B37.0 Candidal stomatitis; E87.2 Acidosis; I42.9 Cardiomyopathy, unspecified; E44.1 Mild protein-calorie malnutrition; T82.49XA Other complication of vascular dialysis catheter, initial encounter; G82.20 Paraplegia, unspecified; I13.2 Hypertensive heart and chronic kidney disease with heart failure and with stage 5 chronic kidney disease, or end stage renal disease; E11.22 Type 2 diabetes mellitus with diabetic chronic kidney disease; E87.5 Hyperkalemia; G89.4 Chronic pain syndrome; G47.00 Insomnia, unspecified; D57.3 Sickle-cell trait; D56.3 Thalassemia minor; D50.9 Iron deficiency anemia, unspecified; E11.40 Type 2 diabetes mellitus with diabetic neuropathy, unspecified; K59.00 Constipation, unspecified; S30.810A Abrasion of lower back and pelvis, initial encounter; E11.319 Type 2 diabetes mellitus with unspecified diabetic retinopathy without macular edema; Z79.4 Long term (current) use of insulin; E78.5 Hyperlipidemia, unspecified; Z88.8 Allergy status to other drugs, medicaments and biological substances
CPT/HCPCS: 36556; 36558; 36580; 36589; 36600; 47490; 47531; 71010; 72146; 72148; 74000; 74150; 74176; 76604; 76705; 76937; 77001; 80048; 80053; 80074; 80076; 81001; 82550; 82607; 82805; 82948; 83540; 83550; 83605; 83690; 83735; 83880; 84100; 84155; 84484; 85007; 85025; 85027; 85610; 85730; 86592; 87040; 87070; 87086; 87205; 87641; 90935; 93005; 93306; 93970; 94002; 94150; 94640; 94664; 94667; 96361; 96374; 96375; 99152; 99153; C1729; C1750; C1752; C1769; C1894; J0690; J1580; J1644; J1756; J1815; J1940; J2060; J2150; J2270; J2405; J2543; J3010; J3370; J7030; J7040; J7050; J7070; J7613; P9047; Q0169; Q4081; Q9967